=== PATIENT | female | born 1985 | race Caucasian/White ===

== ENCOUNTER 2016-09-27 11:47 | Observation (INO) | payer OTHER ==
[2016-09-27] MEDS ORDERED: ASPIRIN 81 MG CHEW PO STA (12:23)
[2016-09-27] MEDS ORDERED: NITROGLYCERIN OINT 1 INCH/GM PACKET TOPICAL STA (12:23)
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
[2016-09-27 12:44] LABS: Basophils % (A) 0 %; CH 31.8; CHCM 33.3; Eosinophils # (A) 0.1 k/uL (0-0.7); Eosinophils % (A) 2 %; HCT 41.3 % (34.0-46.0); HGB 13.5 gm/dL (11.4-16.0); Luc # (Auto) 0.17; Luc % (Auto) 3; Lymphocytes # (A) 2.2 k/uL (1.0-4.8); Lymphocytes % (A) 39 %; MCH 31.4 pg (25.0-35.0); MCHC 32.7 g/dL (31.0-37.0); MCV 96.1 fL (80.0-100.0); Mean Platelet Volume 6.5; Monocytes # (A) 0.4 k/uL (0-1.0); Monocytes % (A) 7 %; Neutrophils # (A) 2.7 k/uL (1.3-7.7); Neutrophils % (A) 48 %; RDW 13.1 % (11.5-15.5); WBC 5.5 k/uL (3.8-10.6); WBC (Perox) 5.71
[2016-09-27 12:50] LABS: INR 1.2 (<1.1); Prothrombin Time 11.8 sec (9.0-12.0)
[2016-09-27 12:51] LABS: ALT 35 U/L (9-52); AST 17 U/L (14-36); Alkaline Phosphatase 73 U/L (38-126); Anion Gap 11 mmol/L; Blood Urea Nitrogen 20 mg/dL (7-17); Calcium 9.1 mg/dL (8.4-10.2); Carbon Dioxide 24 mmol/L (22-30); Chloride 107 mmol/L (98-107); Glucose 85 mg/dL (74-99); Magnesium 1.9 mg/dL (1.6-2.3); Non-African American GFR(MDRD) >60 (>60 ml/min/1.73 sqM); Potassium 4.8 mmol/L (3.5-5.1); Sodium 142 mmol/L (137-145); Total Bilirubin 0.4 mg/dL (0.2-1.3); Total Protein 6.9 g/dL (6.3-8.2)
--- NOTE | 2016-09-27 12:59 | XR ---
EXAMINATION TYPE: XR chest 2V DATE OF EXAM: 09/27/2016 12:56 PM COMPARISON: Prior chest x-ray 18 September 2016 HISTORY: Chest pain TECHNIQUE: Frontal and lateral views of the chest are obtained. FINDINGS: There is no focal air space opacity, pleural effusion, or pneumothorax seen. The cardiac silhouette size is within normal limits. There is a spinal curvature, patient is rotated. The osseo us structures are intact. IMPRESSION: No acute cardiopulmonary process.
[2016-09-27 13:06] LABS: Creatine Kinase 73 U/L (30-135)
[2016-09-27 13:19] LABS: Troponin I <0.012 ng/mL (0.000-0.034)
[2016-09-27] MEDS ORDERED: NITROGLYCERIN SL TABS 0.4 MG TAB SUBLINGUAL PRN (14:56)
[2016-09-27] MEDS ORDERED: CYCLOBENZAPRINE 10 MG TAB PO PRN (17:02)
[2016-09-27] MEDS ORDERED: ACETAMINOPHEN TAB 325 MG TAB PO PRN (17:04)
[2016-09-27 17:25] VITALS: RESP 16
[2016-09-27] MEDS: HEPARIN SODIUM,PORCINE 5,000 UNIT/ML 1 ML VIAL SQ SCH ×2 (17:25→21:14)
[2016-09-27] MEDS: NITROGLYCERIN OINT 1 INCH/GM PACKET TOPICAL SCH ×2 (18:52→23:50)
[2016-09-27 19:01] LABS: Creatine Kinase 66 U/L (30-135)
[2016-09-27 19:13] LABS: Creatine Kinase MB 0.8 ng/mL (0.0-2.4); Troponin I <0.012 ng/mL (0.000-0.034)
[2016-09-27] MEDS: CITALOPRAM HYDROBROMIDE 10 MG TAB PO SCH (21:14)
[2016-09-27] MEDS: ARIPiprazole 10 MG TAB PO SCH (21:14)
[2016-09-28] MEDS: HEPARIN SODIUM,PORCINE 5,000 UNIT/ML 1 ML VIAL SQ SCH ×2 (00:12→09:11)
[2016-09-28 00:42] LABS: Creatine Kinase 65 U/L (30-135)
[2016-09-28 00:43] LABS: Cholesterol 170 mg/dL (<200); HDL Cholesterol 42 mg/dL (40-60); Triglycerides 43 mg/dL (<150)
[2016-09-28 00:53] LABS: Creatine Kinase MB 0.6 ng/mL (0.0-2.4); Troponin I <0.012 ng/mL (0.000-0.034)
[2016-09-28] MEDS: NITROGLYCERIN OINT 1 INCH/GM PACKET TOPICAL SCH ×2 (06:38→14:05)
[2016-09-28] MEDS ORDERED: ASPIRIN 325 MG TAB PO SCH (09:00)
[2016-09-28] MEDS: ARIPiprazole 10 MG TAB PO SCH (09:11)
[2016-09-28] MEDS: CITALOPRAM HYDROBROMIDE 10 MG TAB PO SCH (09:11)
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
[2016-09-28 12:02] VITALS: BP 116/71; PULSE 99; TEMP 98.9
--- NOTE | 2016-09-28 12:14 | ECHOS ---
DATE OF SERVICE: 09/28/2016 AGE: 31Y SEX: F HT: 65 WT: 143 lbs. Protocol Silas: X Others: Stress Echo Stage: II Dur. of Exercise: 5 minutes *Heart Rate Blood Pressure *Rest: 120 Rest: 101/67 * *Max. Achieved: 175 Maximum BP: 114/64 85% PMHR: 161 100% PMHR: 189 *METS: 6.6 INDICATIONS: MEDICATIONS: Celexa, Abilify, Flexeril. CLINICAL INFORMATION: Patient is admitted to the hospital with chest pains and patient is on Flexeril, Celexa, and Abilify. No history of smoking. Patient's resting ECG shows sinus tachycardia, rate of 120 beats per minute. AK interval of 0.16, QRS 0.08, normal ST-T waves, poor R wave progression in anteroseptal leads. Utilizing a standard Silas protocol, a symptom limited treadmill test was performed. Patient exercised for total of 5 minutes, attained a peak heart rate of 175 beats per minute, which is approximately 92% predicted maximal heart rate without any chest or pressure or ST segment deviations indicative of ischemia in any of the monitoring 12 leads. Baseline images show normal thickening except for mild hypokinesis of the inferoapical, apical septal and apical anterior wall and apex on the baseline images, but LV function overall LV function appears to be on the low normal range. Postexercise images show improved contractility and thickening in all segments, including the apex, possibly normal variation. I do not see any definite hypokinetic or dyskinetic segments. Clinical correlation is suggested. 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 Normal stress echocardiogram with overall left ventricular function is mildly impaired. See comments above. 2. Patient did not report any symptoms throughout the study.
[2016-09-28] MEDS ORDERED: CARVEDILOL 3.125 MG TAB PO SCH (17:30)
[2016-09-29] MEDS ORDERED: SPIRONOLACTONE 25 MG TAB PO SCH (09:00)
--- NOTE | 2016-09-29 15:11 | HP ---
DATE OF ADMISSION: 09/28/2016 CHIEF COMPLAINT: Chest pain. HISTORY OF PRESENT ILLNESS: This is a 31-year-old female with past medical history of anxiety, depression, and bipolar disorder who presented to the hospital with chest pain. Patient described it as located to the mediastinum and to the right. No radiation reported. Said that it was mild to moderate. She described it as heaviness on the chest. Patient said that she had a lot of episodes of pain in the past and that lasted only for a few seconds, but this time it lasted for almost 1 minute and patient came to the emergency room. Patient said the pain resolved in the emergency without any medications. Denied any exacerbation factors or any reliving factors. patient currently denying chest pain, shortness of breath, nausea, vomiting, abdominal pain, dizziness, lightheadedness or blurry vision. REVIEW OF SYSTEMS: All reviewed and negative except as above. ALLERGIES: No known drug allergies. HOME MEDICATION: Patient says that she has been off medication except for Zantac which she takes twice daily for her GERD. PAST MEDICAL HISTORY: 1. GERD. 2. Bipolar disorder. 3. Anxiety. 4. Depression. SOCIAL HISTORY: No tobacco, alcohol or drug abuse. FAMILY HISTORY: Significant for hypertension. No sudden cardiac or early heart attack in her family. PHYSICAL EXAMINATION: VITAL SIGNS: Reviewed and stable. GENERAL: In her stated age ( ). ( ) PERRLA. NECK: Supple. No thyromegaly. LUNGS: Clear to auscultation bilaterally. HEART: Normal S1, S2. ABDOMEN: Soft, nontender. bowel sounds positive in all four quadrants. LOWER EXTREMITY: No edema. ( ) IMAGING AND LABS: CBC and chem. 7 within normal limits. Troponin has been negative. Stress test was done and negative. ASSESSMENT AND PLAN: 1. Chest pain, atypical, likely etiology of gastroesophageal reflux disease, exacerbated with anxiety. Patient asked to continue with Zantac and stop taking Protonix and to follow up with her primary care physician as outpatient. Patient reassured regarding the stress test results and asked to follow up with her primary care physician closely. 2. Gastroesophageal reflux disease. Management as above. 3. Anxiety and depression. Management as above. 4. Bipolar disorder. Patient will follow-up with her primary care physician as outpatient. 5. Discharge planning, this afternoon. Plan discussed with the patient who agreed to the above and will be discharged today.
== END 2016-09-28 14:00 | disposition home or self-care (01) ==
LOC: EC 11:47 → 3OBS 14:56
PROVIDERS: ADMIT Internal Medicine; ATTEND Internal Medicine
DX: R07.9 Chest pain, unspecified (principal); Z87.442 Personal history of urinary calculi; F17.200 Nicotine dependence, unspecified, uncomplicated; F41.9 Anxiety disorder, unspecified; F31.9 Bipolar disorder, unspecified; F43.10 Post-traumatic stress disorder, unspecified; F90.9 Attention-deficit hyperactivity disorder, unspecified type; J45.909 Unspecified asthma, uncomplicated; Z62.810 Personal history of physical and sexual abuse in childhood; Z80.1 Family history of malignant neoplasm of trachea, bronchus and lung; Z82.0 Family history of epilepsy and other diseases of the nervous system; Z82.49 Family history of ischemic heart disease and other diseases of the circulatory system; Z79.899 Other long term (current) drug therapy; Z88.1 Allergy status to other antibiotic agents; Z88.3 Allergy status to other anti-infective agents; Z88.8 Allergy status to other drugs, medicaments and biological substances
CPT/HCPCS: 99285; 36415; 93005; 93017; 93350; 80061; 80053; 82550; 82553; 83735; 84484; 85025; 85610; 85730; 71020; G0378 ×2; J1644 ×2; 96372

== ENCOUNTER 2016-10-05 21:03 | Observation (INO) | payer OTHER ==
[2016-10-05] MEDS ORDERED: NITROGLYCERIN SL TABS 0.4 MG TAB SUBLINGUAL STA ×2 (21:29)
[2016-10-05] MEDS ORDERED: ASPIRIN 81 MG CHEW PO STA (21:29)
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
[2016-10-05] MEDS: NITROGLYCERIN SL TABS 0.4 MG TAB SUBLINGUAL STA ×2 (21:50→21:51)
[2016-10-05 21:51] LABS: Basophils # (A) 0.1 k/uL (0-0.2); Basophils % (A) 1 %; CH 31.8; CHCM 33.5; Eosinophils # (A) 0.2 k/uL (0-0.7); Eosinophils % (A) 2 %; HDW 2.37; HGB 13.6 gm/dL (11.4-16.0); Luc % (Auto) 3; Lymphocytes % (A) 38 %; MCH 30.9 pg (25.0-35.0); MCHC 32.3 g/dL (31.0-37.0); MCV 95.4 fL (80.0-100.0); Mean Platelet Volume 7.2; Monocytes # (A) 0.6 k/uL (0-1.0); Monocytes % (A) 7 %; Neutrophils # (A) 3.9 k/uL (1.3-7.7); Neutrophils % (A) 49 %; RBC 4.41 m/uL (3.80-5.40); RDW 13.2 % (11.5-15.5); WBC 7.9 k/uL (3.8-10.6); WBC (Perox) 7.94
[2016-10-05 21:59] LABS: INR 1.1 (<1.1); Partial Thromboplastin Time 24.4 sec (22.0-30.0); Prothrombin Time 11.3 sec (9.0-12.0)
--- NOTE | 2016-10-05 22:09 | XR ---
EXAMINATION TYPE: XR chest 2V DATE OF EXAM: 10/05/2016 10:04 PM COMPARISON: 09/27/2016 HISTORY: Chest pain TECHNIQUE: Frontal and lateral views of the chest are obtained. FINDINGS: Heart and mediastinum are normal. Lungs are clear. Diaphragm is normal. There are chest le ads. Costophrenic angles are clear. Bony thorax is intact. IMPRESSION: Normal chest. No change.
[2016-10-05 22:17] LABS: Creatine Kinase 79 U/L (30-135)
[2016-10-05 22:19] LABS: ALT 49 U/L (9-52); AST 25 U/L (14-36); Alkaline Phosphatase 65 U/L (38-126); Anion Gap 11 mmol/L; Blood Urea Nitrogen 17 mg/dL (7-17); Calcium 9.4 mg/dL (8.4-10.2); Carbon Dioxide 25 mmol/L (22-30); Chloride 107 mmol/L (98-107); Glucose 92 mg/dL (74-99); Magnesium 2.2 mg/dL (1.6-2.3); Non-African American GFR(MDRD) >60 (>60 ml/min/1.73 sqM); Potassium 3.9 mmol/L (3.5-5.1); Sodium 143 mmol/L (137-145); Total Bilirubin 0.3 mg/dL (0.2-1.3); Total Protein 7.5 g/dL (6.3-8.2)
[2016-10-05 22:26] LABS: Appearance,Urine Clear (Clear); Bilirubin,Urine Negative (Negative); Glucose,Urine (UA) Negative (Negative); Ketones,Urine Negative (Negative); Leukocyte Esterase,Urine Negative (Negative); Nitrite,Urine Negative (Negative); Protein,Urine Negative (Negative); Specific Gravity,Urine 1.018 (1.001-1.035); UA Billing (MACRO vs. MICRO) CHEM; Urobilinogen,Urine <2.0 mg/dL (<2.0)
[2016-10-05 22:30] LABS: Creatine Kinase MB 0.4 ng/mL (0.0-2.4); Troponin I <0.012 ng/mL (0.000-0.034)
[2016-10-05] MEDS ORDERED: HEPARIN SODIUM,PORCINE 5,000 UNIT/ML 1 ML VIAL IV PRN (22:59)
[2016-10-05] MEDS ORDERED: NITROGLYCERIN SL TABS 0.4 MG TAB SUBLINGUAL PRN (22:59)
[2016-10-05] MEDS ORDERED: HEPARIN SODIUM,PORCINE 5,000 UNIT/ML 1 ML VIAL IV ONE (22:59)
[2016-10-05] MEDS ORDERED: HEPARIN SODIUM,PORCINE/D5W PMX 25,000 UNIT in DEXTROSE/WATER 1 500ML.BAG IV SCH (23:00)
[2016-10-05 23:48] VITALS: BMI 21.9
[2016-10-06] MEDS ORDERED: CITALOPRAM HYDROBROMIDE 20 MG TAB PO SCH (00:30)
[2016-10-06] MEDS: NITROGLYCERIN OINT 1 INCH/GM PACKET TOPICAL SCH ×5 (02:33→23:02)
[2016-10-06] MEDS: ARIPiprazole 10 MG TAB PO SCH ×3 (02:34→20:05)
[2016-10-06] MEDS: CITALOPRAM HYDROBROMIDE 10 MG TAB PO SCH ×3 (02:34→20:05)
[2016-10-06 03:46] LABS: Mean Platelet Volume 6.9
[2016-10-06 04:23] LABS: Cholesterol 152 mg/dL (<200); HDL Cholesterol 41 mg/dL (40-60); Triglycerides 35 mg/dL (<150)
[2016-10-06 04:35] LABS: Creatine Kinase 59 U/L (30-135)
[2016-10-06 04:48] LABS: Creatine Kinase MB 0.3 ng/mL (0.0-2.4); Troponin I <0.012 ng/mL (0.000-0.034)
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
[2016-10-06] MEDS: ACETAMINOPHEN TAB 325 MG TAB PO PRN ×2 (09:30→20:05)
[2016-10-06] MEDS: ASPIRIN 325 MG TAB PO SCH (09:30)
[2016-10-06 09:36] LABS: Creatine Kinase 59 U/L (30-135)
[2016-10-06 09:49] LABS: Creatine Kinase MB 0.3 ng/mL (0.0-2.4); Troponin I <0.012 ng/mL (0.000-0.034)
[2016-10-06] MEDS ORDERED: MAG HYDROX/AL HYDROX/SIMETH 30 ML CUP PO PRN (20:37)
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
[2016-10-06] MEDS ORDERED: SODIUM CHLORIDE 0.9% 1,000 ML IV SCH (22:00)
[2016-10-06] MEDS: METOPROLOL TARTRATE 12.5 MG TAB PO SCH (23:01)
[2016-10-07] MEDS: NITROGLYCERIN OINT 1 INCH/GM PACKET TOPICAL SCH ×2 (04:31→13:43)
[2016-10-07 04:42] VITALS: TEMP 98.5
[2016-10-07 08:14] VITALS: RESP 16
--- NOTE | 2016-10-07 08:33 | P.PN ---
Subjective Principal diagnosis: Chest pain This is a pleasant 31-year-old female patient with no significant cardiac history who presented to the hospital complaining of chest discomfort. She was at home yesterday when she developed chest discomfort, as sharp kind of discomfort, with some radiation to the right arm, without associated symptoms. The cardiac workup came in to be unremarkable. Enzymes came in to be unremarkable. The EKG showed sinus rhythm with poor R-wave progression. The patient just was admitted to the hospital a few weeks ago and underwent an echocardiogram and stress echocardiogram and both came in to be unremarkable. She was seen and evaluated by Dr. Dr. Le in the office few days ago and he recommended obtaining an event monitor which the patient is willing at this point. The patient was started yesterday on metoprolol tartrate by Dr. Kimble. On follow-up with her today, she is feeling better, the chest discomfort has improved, and the sinus tachycardia has improved as well. From the cardiovascular standpoint of view, the patient can be discharged home. Objective - Vital Signs Vital signs: Vital Signs Temp 98.5 F 10/07/16 08:00 Pulse 91 10/07/16 08:00 Resp 16 10/07/16 08:00 BP 81/55 10/07/16 08:00 Pulse Ox 98 10/07/16 08:00 Intake & Output 10/06/16 10/07/16 10/07/16 18:59 06:59 18:59 Intake Total 500 Balance 500 Weight 63.5 kg Intake: Oral 500 Other: Voiding Method Toilet Toilet # Voids 3 2 - Constitutional General appearance: Present: no acute distress - Respiratory Respiratory: bilateral: CTA - Cardiovascular Rhythm: regular Heart sounds: normal: S1, S2 - Labs CBC & Chem 7: 10/06/16 03:26 10/05/16 21:22 Assessment and Plan Plan: Assessment #1 atypical chest pain #2 sinus tachycardia Plan #1 the patient can be discharged home #2 she has a negative cardiac workup
[2016-10-07] MEDS: METOPROLOL TARTRATE 12.5 MG TAB PO SCH (09:42)
[2016-10-07] MEDS: CITALOPRAM HYDROBROMIDE 10 MG TAB PO SCH (09:42)
[2016-10-07] MEDS: ASPIRIN 325 MG TAB PO SCH (09:42)
[2016-10-07] MEDS: ARIPiprazole 10 MG TAB PO SCH (09:43)
[2016-10-07 11:58] VITALS: BP 95/64; PULSE 90
[2016-10-12 01:45] LABS: Metanephrine, Free 32 pg/mL (< OR = 57); Total, Free (MN + NMN) 32 pg/mL (< OR = 205)
--- NOTE | 2016-10-29 11:44 | P.DS ---
Providers Date of admission: 10/05/16 22:59 Expected date of discharge: 10/07/16 Attending physician: Leonor Kimble Primary care physician: [facility] Course: This is a pleasant 31 year old lady patient of Dr Negorn, She has history of anxiety, depression, bipolar disorder and palpitations, she follows with Dr Le cardiology and Dr Nevarez psychiatry, she was last seen here with an admission related to chest pain requiring a stress echo whoch failed to reveal any stress induced inchemia, she has mild inferiorapical apical septal, apical anterior hypokinesia with normal ef, She was discharged to home with an event monitor, she has increasing difficulties with stress, patient cannot sleep , she cannot shut down her brain, her mother seems to be a big part of her stress. tehere was no titration of her medicaiton when seen by her psychiatrist. She is nonsuicidal non homicidal with compliance to medications. She was home this time and had racing heart causing some chest discomfort, no radiation of pain, pain is sharp without any exertion, at that time her heart rate was 137 based on her event monitor, she pressed the event button with her symptoms she was advised to come in the ER.. I have called the heart monitor company to find out the underlying rhythm, she was in sinus tachycardia without any malignant rhytm, hr 137. patient denies any neurologic symptoms, she is a little bit hypotensive while in the medical floor, she has intermittent burst of tachycardia 120-130. low dose metoprolol was started in consideration of her symptomatology, citalopram was increased. no anxiolytics were prescribed at this time, metoprolol is added at 12.5 bid, conusltations with cardiology Patient's chest discomfort has improved. Sinus tachycardia has improved as well. She has been cleared for discharge by cardiology. Patient will be discharged home today in stable condition. Discharge diagnoses: 1. chest pain related to episodes of sinus tachycardia at rest with increasing uncontrolled emotional stress. 2. bipolar disorder with insomnia, anxiety. 3.GERD 4. Hypotension Impression and plan of care have been directed as dictated by the signing physician. Nel Davison nurse practitioner acting as scribe for signing physician. Patient Condition at Discharge: Good Plan - Discharge Summary New Discharge Prescriptions: Aspirin EC [Ecotrin Low Dose] 81 mg PO DAILY #30 tablet. Melatonin 5 mg PO HS #30 tablet Metoprolol Tartrate [Lopressor] 12.5 mg PO BID #60 tab Discharge Medication List ARIPiprazole [Abilify] 10 mg PO BID 09/27/16 [History] ARIPiprazole [Abilify] 10 mg PO BID tab 10/06/16 [Rx] Citalopram Hydrobromide [CeleXA] 10 mg PO TID #0 10/06/16 [Rx] Melatonin 5 mg PO HS #30 tablet 10/06/16 [Rx] Aspirin EC [Ecotrin Low Dose] 81 mg PO DAILY #30 tablet. 10/07/16 [Rx] Metoprolol Tartrate [Lopressor] 12.5 mg PO BID #60 tab 10/07/16 [Rx] Follow up Appointment(s)/Referral(s): Cleve Negron MD [Primary Care Provider] - 1-2 days Jose Raul Le MD [STAFF PHYSICIAN] - 1 Week Patient Instructions/Handouts: Heart Healthy Diet (GEN), Seasoning Without Salt (GEN), Low Sodium Diet (GEN) Activity/Diet/Wound Care/Special Instructions: low fat/low salt diet activity as tolerated Discharge Disposition: HOME SELF-CARE
== END 2016-10-07 15:11 | disposition home or self-care (01) ==
LOC: EC 21:03 → 3OBS 22:59
PROVIDERS: ADMIT Family Medicine; ATTEND Family Medicine
DX: R07.89 Other chest pain (principal); R00.0 Tachycardia, unspecified; F31.9 Bipolar disorder, unspecified; G47.00 Insomnia, unspecified; F41.9 Anxiety disorder, unspecified; K21.9 Gastro-esophageal reflux disease without esophagitis; I95.9 Hypotension, unspecified; J45.909 Unspecified asthma, uncomplicated; F60.9 Personality disorder, unspecified; G40.909 Epilepsy, unspecified, not intractable, without status epilepticus; F90.9 Attention-deficit hyperactivity disorder, unspecified type; F43.10 Post-traumatic stress disorder, unspecified; F12.90 Cannabis use, unspecified, uncomplicated; M54.9 Dorsalgia, unspecified; F17.200 Nicotine dependence, unspecified, uncomplicated; Z62.810 Personal history of physical and sexual abuse in childhood; Z79.899 Other long term (current) drug therapy; Z88.1 Allergy status to other antibiotic agents; Z88.8 Allergy status to other drugs, medicaments and biological substances; Z80.1 Family history of malignant neoplasm of trachea, bronchus and lung
CPT/HCPCS: 36415; 93005; 83835; 83880; 80061; 80053; 84443; 82533; 82550 ×2; 82553 ×2; 83735; 84484 ×2; 85025; 85049; 85610; 85730 ×2; 81003; 81025; 84480; 80306; 71020; 99285; 96365; 96376; G0378 ×3; J1644 ×2; 96361; 96366

== ENCOUNTER 2016-11-09 15:04 | Emergency (ER) | payer OTHER ==
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
[2016-11-09] MEDS ORDERED: SODIUM CHLORIDE 0.9% 1,000 ML IV ONE (16:29)
[2016-11-09] MEDS ORDERED: SODIUM CHLORIDE 0.9% 1,000 ML IV SCH ×2 (16:30→17:30)
[2016-11-09] MEDS ORDERED: ACETAMINOPHEN TAB 325 MG TAB PO PRN (17:20)
[2016-11-09] MEDS ORDERED: ONDANSETRON 4 MG/2 ML VIAL IVP PRN (17:20)
[2016-11-09] MEDS ORDERED: NALOXONE 0.4 MG/ML 1 ML VIAL IV PRN (17:20)
[2016-11-09] MEDS ORDERED: KETOROLAC 30 MG/ML 1 ML VIAL IVP PRN (17:20)
[2016-11-09] MEDS ORDERED: IBUPROFEN 400 MG TAB PO PRN (17:20)
[2016-11-09 17:22] LABS: Basophils # (A) 0.1 k/uL (0-0.2); Basophils % (A) 1 %; CH 32.6; CHCM 33.3; Eosinophils # (A) 0.2 k/uL (0-0.7); Eosinophils % (A) 2 %; HCT 43.7 % (34.0-46.0); HDW 2.36; HGB 14.6 gm/dL (11.4-16.0); Luc # (Auto) 0.22; Luc % (Auto) 3; Lymphocytes # (A) 2.4 k/uL (1.0-4.8); Lymphocytes % (A) 30 %; MCH 32.7 pg (25.0-35.0); MCHC 33.3 g/dL (31.0-37.0); MCV 98.2 fL (80.0-100.0); Mean Platelet Volume 7.2; Monocytes # (A) 0.4 k/uL (0-1.0); Monocytes % (A) 5 %; Neutrophils # (A) 4.7 k/uL (1.3-7.7); Neutrophils % (A) 59 %; RBC 4.45 m/uL (3.80-5.40); RDW 13.5 % (11.5-15.5); WBC 7.9 k/uL (3.8-10.6); WBC (Perox) 7.92
[2016-11-09 17:29] LABS: Appearance,Urine Cloudy (Clear); Bacteria,Urine Many /hpf; Bilirubin,Urine Negative (Negative); Glucose,Urine (UA) Negative (Negative); Ketones,Urine Negative (Negative); Leukocyte Esterase,Urine Large (Negative); Mucus,Urine Rare /hpf; Nitrite,Urine Negative (Negative); Particle Count 16021; Protein,Urine Negative (Negative); RBC,Urine 1 /hpf (0-5); Specific Gravity,Urine 1.011 (1.001-1.035); Squamous Epithelial Cell,Urine 22 /hpf (0-4); UA Billing (MACRO vs. MICRO) MICRO; Urobilinogen,Urine <2.0 mg/dL (<2.0); WBC,Urine 2 /hpf (0-5)
[2016-11-09 17:33] LABS: ALT 57 U/L (9-52); AST 29 U/L (14-36); Alkaline Phosphatase 51 U/L (38-126); Anion Gap 9 mmol/L; Blood Urea Nitrogen 12 mg/dL (7-17); Calcium 9.7 mg/dL (8.4-10.2); Carbon Dioxide 26 mmol/L (22-30); Chloride 106 mmol/L (98-107); Glucose 88 mg/dL (74-99); Non-African American GFR(MDRD) >60 (>60 ml/min/1.73 sqM); Sodium 141 mmol/L (137-145); Total Bilirubin 0.4 mg/dL (0.2-1.3); Total Protein 7.9 g/dL (6.3-8.2)
[2016-11-09 18:23] LABS: Erythrocyte Sedimentation Rate 11 mm/hr (0-20)
[2016-11-09] MEDS ORDERED: methylPREDNISolone SOD SUCCI 125 MG/2 ML VIAL IV STA (18:26)
[2016-11-09 18:52] VITALS: BP 107/70; PULSE 88; RESP 18; TEMP 98.4
[2016-11-10] MEDS ORDERED: ENOXAPARIN 40 MG/0.4 ML SYRINGE SQ SCH (09:00)
== END 2016-11-09 18:50 | disposition home or self-care (01) ==
LOC: EC 15:04
DX: S90.425A Blister (nonthermal), left lesser toe(s), initial encounter (principal); F31.9 Bipolar disorder, unspecified; T37.0X5A Adverse effect of sulfonamides, initial encounter; Z88.1 Allergy status to other antibiotic agents; Z88.2 Allergy status to sulfonamides; Z88.5 Allergy status to narcotic agent; Z88.8 Allergy status to other drugs, medicaments and biological substances; Z91.012 Allergy to eggs; Z87.891 Personal history of nicotine dependence; Z79.899 Other long term (current) drug therapy
CPT/HCPCS: 36415; 80053; 85652; 85025; 81001; 87040; 87070; 87086; 87205; 99283; 96374; 96361; J2930

== ENCOUNTER 2016-12-02 19:25 | Emergency (ER) | payer OTHER ==
[2016-12-02 19:29] VITALS: BP 105/67; PULSE 105; RESP 20; TEMP 98.9
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
--- NOTE | 2016-12-02 20:07 | XR ---
EXAMINATION TYPE: XR chest 2V DATE OF EXAM: 12/02/2016 7:56 PM COMPARISON: Prior chest x-ray October 05, 2016 HISTORY: Cough and fever for 4 days. TECHNIQUE: Frontal and lateral views of the chest are obtained. FINDINGS: There is no focal air space opacity, pleural effusion, or pneumothorax seen. The cardiac silhouette size is within normal limits. The osseous structures are intact. IMPRESSION: No suspicious acute infiltrate is present.
== END 2016-12-02 20:25 | disposition home or self-care (01) ==
LOC: EC 19:25
DX: J10.1 Influenza due to other identified influenza virus with other respiratory manifestations (principal); F31.9 Bipolar disorder, unspecified; F41.9 Anxiety disorder, unspecified; Z87.891 Personal history of nicotine dependence; J45.909 Unspecified asthma, uncomplicated; Z79.899 Other long term (current) drug therapy; Z88.1 Allergy status to other antibiotic agents; Z88.2 Allergy status to sulfonamides; Z91.012 Allergy to eggs; Z88.6 Allergy status to analgesic agent; Z88.8 Allergy status to other drugs, medicaments and biological substances; Z87.01 Personal history of pneumonia (recurrent)
CPT/HCPCS: 71020; 87502; 99283

== ENCOUNTER 2017-02-24 14:34 | Inpatient (IN) | payer MEDICAID, OTHER ==
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
[2017-02-24] MEDS ORDERED: LORazepam 1 MG TAB PO STA (16:28)
[2017-02-24] MEDS ORDERED: ONDANSETRON ODT 4 MG TAB PO STA (16:28)
[2017-02-24] MEDS ORDERED: cloNIDine 0.3 MG/24HR PATCH 1 PATCH PATCH TRANSDERM SCH (16:30)
[2017-02-24] MEDS ORDERED: MAGNESIUM HYDROXIDE 2,400 MG/10 ML CUP PO PRN (21:28)
[2017-02-24] MEDS ORDERED: MAG HYDROX/AL HYDROX/SIMETH 30 ML CUP PO PRN (21:28)
[2017-02-24] MEDS ORDERED: LORATADINE 10 MG TAB PO PRN (21:37)
[2017-02-24] MEDS: ARIPiprazole 10 MG TAB PO SCH (22:05)
[2017-02-24 22:06] VITALS: BMI 27.1
[2017-02-24] MEDS ORDERED: cloNIDine HCL 0.1 MG TAB PO PRN (22:15)
[2017-02-25] MEDS ORDERED: LOPERAMIDE 2 MG CAP PO PRN (02:55)
[2017-02-25 08:08] LABS: Basophils % (A) 0 %; CH 32.6; CHCM 32.8; Eosinophils # (A) 0.2 k/uL (0-0.7); Eosinophils % (A) 2 %; HCT 43.1 % (34.0-46.0); HDW 2.26; HGB 14.3 gm/dL (11.4-16.0); Luc # (Auto) 0.18; Luc % (Auto) 2; Lymphocytes # (A) 2.1 k/uL (1.0-4.8); Lymphocytes % (A) 20 %; MCH 33.1 pg (25.0-35.0); MCHC 33.2 g/dL (31.0-37.0); MCV 99.8 fL (80.0-100.0); Monocytes # (A) 0.7 k/uL (0-1.0); Monocytes % (A) 6 %; Neutrophils # (A) 7.3 k/uL (1.3-7.7); Neutrophils % (A) 70 %; RBC 4.32 m/uL (3.80-5.40); WBC 10.5 k/uL (3.8-10.6); WBC (Perox) 10.45
[2017-02-25] MEDS: CHOLECALCIFEROL 1,000 UNIT TAB PO SCH (08:48)
[2017-02-25] MEDS ORDERED: VENLAFAXINE HCL ER 37.5 MG CAP PO SCH (09:00)
[2017-02-25 09:03] LABS: ALT 28 U/L (9-52); AST 18 U/L (14-36); Alkaline Phosphatase 53 U/L (38-126); Anion Gap 10 mmol/L; Blood Urea Nitrogen 17 mg/dL (7-17); Calcium 9.6 mg/dL (8.4-10.2); Carbon Dioxide 24 mmol/L (22-30); Chloride 106 mmol/L (98-107); Glucose 85 mg/dL (74-99); Non-African American GFR(MDRD) >60 (>60 ml/min/1.73 sqM); Potassium 4.2 mmol/L (3.5-5.1); Sodium 140 mmol/L (137-145); Total Bilirubin 0.8 mg/dL (0.2-1.3); Total Protein 7.5 g/dL (6.3-8.2)
[2017-02-25] MEDS: METOPROLOL TARTRATE 25 MG TAB PO SCH ×2 (09:31→20:52)
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
[2017-02-25] MEDS: IBUPROFEN 800 MG TAB PO PRN (12:30)
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
[2017-02-25] MEDS: ARIPiprazole 10 MG TAB PO SCH (20:52)
[2017-02-26] MEDS: CHOLECALCIFEROL 1,000 UNIT TAB PO SCH (08:45)
[2017-02-26] MEDS: SERTRALINE 50 MG TAB PO SCH (08:47)
[2017-02-26] MEDS: METOPROLOL TARTRATE 25 MG TAB PO SCH ×2 (08:47→22:04)
[2017-02-26] MEDS ORDERED: LOPERAMIDE 2 MG CAP PO PRN (08:58)
--- NOTE | 2017-02-26 09:06 | P.PN ---
Progress Note - Text Interval history: The patient is found in the hallway she follows me to an interview room. She reports her mood is better today. She feels that she slept well. We discussed the medication change to Zoloft she has no questions or concerns regarding that medication. She states that she has secured a bed at [facility] on March 06. She states her parents would like her to stay in the hospital until then she states she would like to be discharged tomorrow. She states that she has been participating in groups and finds was beneficial. She may have a support meeting scheduled tomorrow involving her parents. She anticipates that may go well but states that they often do not get along. Mental status exam: The patient is seated calmly in her chair she presents with adequate hygiene grooming eye contact is appropriate speech is fluent spontaneous. She reports her mood is better affect is constricted. She feels safe in the hospital she reports no acute suicidal or homicidal ideation intent or plan. Between yesterday and today she is reporting a dramatic change in her mood. She is reporting no thoughts to participate in self-injurious [place] such as cutting. She endorses no homicidal ideation. No report of auditory or visual hallucinations no specific delusions she does not appear to be experiencing symptoms of psychosis. Thought process is linear she demonstrates no tangential thinking loose associations or flight of ideas. She can be circumstantial at times. Insight and judgment still limited. She demonstrates no abnormal involuntary movements. She demonstrates no verbal or physical aggressiveness. Plan: The patient will continue on her current medications we will monitor her for safety and encourage her participation in the milieu. We will await the results of the support meeting tomorrow. Vital signs reviewed she is demonstrating tachycardia this morning. Yesterday she had 2 heart rate measurements within normal limits. We will continue the metoprolol.
[2017-02-26] MEDS ORDERED: ONDANSETRON ODT 4 MG TAB PO STA (11:13)
[2017-02-26] MEDS: IBUPROFEN 800 MG TAB PO PRN (18:41)
[2017-02-26] MEDS: ARIPiprazole 10 MG TAB PO SCH (22:03)
[2017-02-27] MEDS: CHOLECALCIFEROL 1,000 UNIT TAB PO SCH (09:17)
[2017-02-27] MEDS: METOPROLOL TARTRATE 25 MG TAB PO SCH ×2 (09:17→21:19)
[2017-02-27] MEDS: SERTRALINE 50 MG TAB PO SCH (09:17)
[2017-02-27] MEDS ORDERED: ONDANSETRON 4 MG TAB PO PRN (11:24)
[2017-02-27] MEDS ORDERED: hydrOXYzine PAMOATE 25 MG CAP PO PRN (11:25)
--- NOTE | 2017-02-27 11:44 | P.PN ---
Progress Note - Text INTERVERAL HISTORY: Cross-cover DR Valentin. I reviewed medical records ,discussed case in treatment team and saw patient; patient had her family meeting this morning that was productive and mother did set firm limits on patient behavior regarding her addiction,please refer to SW note,patient stated that she does not feel safe to be discharged today "I am still going through withdrawals symptoms ,I have bad nausea and anxiety ,can you give me Ativan",I discussed with her cross addiction and she verbalized understanding.She denies any suicidal ideation ,no psychotic features ,rates her depression 3/10 ,anxiety 6 or 7/10 MENTAL STATUS EXAM The patient presents with adequate hygiene ,fair grooming, eye contact is appropriate speech is spontaneous. Stated mood"ANXIOUS" , affect is constricted, she reports no suicidal or homicidal ideation intent or plan, she does not appear to be experiencing symptoms of psychosis. Thought process is linear and goal directed .Insight and judgment are improving PLAN: Continue inpatient psychiatric admission for safety purposes,add PRN Zofran and Vistaril ,continue rest of medications, continue groups participation and encourage relaxation and mindfullness instead of drug seeking behavior
[2017-02-27] MEDS: ARIPiprazole 10 MG TAB PO SCH (21:20)
[2017-02-27] MEDS: IBUPROFEN 800 MG TAB PO PRN (21:20)
[2017-02-27 21:22] VITALS: TEMP 98
[2017-02-28] MEDS: CHOLECALCIFEROL 1,000 UNIT TAB PO SCH (08:52)
[2017-02-28] MEDS: METOPROLOL TARTRATE 25 MG TAB PO SCH (08:53)
[2017-02-28] MEDS: SERTRALINE 50 MG TAB PO SCH (08:53)
[2017-02-28 08:54] VITALS: BP 95/68; PULSE 118; RESP 20
--- NOTE | 2017-02-28 09:37 | P.DS ---
Providers Date of admission: 02/24/17 19:34 Expected date of discharge: 02/28/17 Attending physician: Claus Valentin Consults: 02/24/17 21:28 Consult Physician Routine Consulting Provider: Ailin Barfield Consult Reason/Comments: H & P and medical follow up, evaluate hypotension and scrape to R forearm. Do you want consulting provider notified?: Yes, Notify in am 02/25/17 14:58 Consult Physician Routine Consulting Provider: Perico Romero Consult Reason/Comments: Patient's outpt physician told her to stop 2nd benzo 02/15/17.Titrate Please Do you want consulting provider notified?: Yes Primary care physician: Stated None - Discharge Diagnosis(es) (1) Major depressive disorder, recurrent Current Visit: Yes Status: Acute Priority: High (2) Opiate dependence Current Visit: Yes Status: Acute Priority: High (3) Cocaine use disorder, mild, in sustained remission Current Visit: Yes Status: Acute Priority: Low Hospital Course: Brief summary of admission note: This patient is a 31-year-old single female who was admitted to the mental health unit through the emergency room for suicidal ideation. The patient had reported a worsening of depressive symptoms over the last 2 months. She felt depressed tearful having low energy decreased appetite. She reported feeling hopeless and had thoughts of cutting her throat. She has a long history of having major depressive episodes she is also known to have cluster B personality disorder traits and is currently in the DBT group with [facility]. The patient has been utilizing opiates in the form of heroin and fentanyl. For full detail please refer to the psychiatric evaluation dated 02/25/2017. Summary of hospital course: The patient was admitted to the mental health unit voluntarily. We reviewed her presenting symptoms and medication options. She felt that she was doing poorly with the Effexor and she felt more agitated and aggressive with it. We discontinue that medication and initiated Zoloft to manage depressive and possibly anxiety symptoms. She was continued on her Abilify. In my absence she was started on Vistaril as needed for anxiety. The patient participated in a support meeting involving her parents yesterday. There was found to be productive. She will return home with them with the agreement that she will adhere to several specific rules. She is scheduled to go to [place] for chemical dependency treatment on the of this month. During the hospitalization we spent some time having her examine some of the assumption she makes in certain situations. We discussed a variety of coping skills she can employ when feeling stressed or overwhelmed. The patient feels that she is ready to go home she has processed the family meeting further. She was seen by the internal medicine team. She does have an existing history of sinus tachycardia she was continued on her metoprolol. Mental status exam: The patient is alert she seated calmly she is dressed in her own clothing. Hygiene and grooming are adequate. Speech is fluent and spontaneous nonpressured. She reports her mood is "much better" affect is euthymic she demonstrates no tearfulness. Thought process is linear she demonstrates mild tangential thinking loose associations or flight of ideas. She is reporting no auditory or visual hallucinations she reports no specific delusions there is no evidence of psychosis. She does not appear hypomanic or manic. There is no verbal or physical aggressiveness. No psychomotor agitation or slowing. No abnormal involuntary movements are observed. She remains oriented to person place and date. She reports no hopelessness thinking she reports no suicidal or homicidal ideation intent or plan. She demonstrates future oriented thinking as she describes her planned activities for the next 6 days prior to attending inpatient chemical dependency treatment. Impressions 1. Major depressive disorder recurrent severe without psychosis, opiate use disorder, cocaine use disorder in remission, rule out PTSD 2. Borderline personality disorder traits 3. History of sinus tachycardia Plan: The patient will be discharged from the mental health unit today she will reside with her parents. She will continue on Zoloft 50 mg daily Vistaril 25 mg up to twice daily as needed for anxiety, Abilify 10 mg daily. She is scheduled to be placed at [place] for inpatient chemical dependency treatment on the of this month. She is instructed to abstain from any use of alcohol or illicit drugs. We discussed the use of alcohol or illicit drugs will elevate her safety risk. There is no imminent safety risk at this time and she is appropriate for transition to outpatient care. She is instructed to present to the hospital with any acute safety concerns. She will resume activity and her DBT group with [facility]. Patient Condition at Discharge: Stable Plan - Discharge Summary New Discharge Prescriptions: New hydrOXYzine PAMOATE [Vistaril] 25 mg PO Q8HR PRN #30 cap PRN Reason: Anxiety Sertraline [Zoloft] 50 mg PO DAILY #30 tab Continue Medroxyprogesterone Acetate [Depo-Provera] 150 mg IM Q30D Cholecalciferol [Vitamin D3] 5,000 unit PO DAILY Ibuprofen [Motrin] 800 mg PO TID PRN PRN Reason: Pain Aspirin EC [Ecotrin] 325 mg PO DAILY Ranitidine HCl [Zantac] 150 mg PO BID Loratadine [Claritin] 10 mg PO DAILY PRN PRN Reason: ALLERGIES Metoprolol Tartrate 25 mg PO BID ARIPiprazole [Abilify] 10 mg PO HS #30 Discontinued Triamcinolone 0.5% Cream [Kenalog 0.5% Cream] 1 applic TOPICAL BID Venlafaxine HCl [Effexor XR] 37.5 mg PO DAILY Discharge Medication List Aspirin EC [Ecotrin] 325 mg PO DAILY 02/24/17 [History] Cholecalciferol [Vitamin D3] 5,000 unit PO DAILY 02/24/17 [History] Ibuprofen [Motrin] 800 mg PO TID PRN 02/24/17 [History] Loratadine [Claritin] 10 mg PO DAILY PRN 02/24/17 [History] Medroxyprogesterone Acetate [Depo-Provera] 150 mg IM Q30D 02/24/17 [History] Metoprolol Tartrate 25 mg PO BID 02/24/17 [History] Ranitidine HCl [Zantac] 150 mg PO BID 02/24/17 [History] ARIPiprazole [Abilify] 10 mg PO HS #30 02/28/17 [Rx] Sertraline [Zoloft] 50 mg PO DAILY #30 tab 02/28/17 [Rx] hydrOXYzine PAMOATE [Vistaril] 25 mg PO Q8HR PRN #30 cap 02/28/17 [Rx] Follow up Appointment(s)/Referral(s): intake,int[facility] [[facility] - 03/13/17 3:30 pm (Dr Nevarez) [facility] [Outside] - 03/01/17 1:00 pm (Libertad Fitzgerald ) None,Stated [Primary Care Provider] - 1-2 days
== END 2017-02-28 12:11 | disposition home or self-care (01) | DRG 885 ==
LOC: EC 14:34 → 3MHU 19:34
PROVIDERS: ADMIT Psychiatry & Neurology Psychiatry; ATTEND Psychiatry & Neurology Psychiatry
DX: F33.2 Major depressive disorder, recurrent severe without psychotic features (principal); F11.20 Opioid dependence, uncomplicated; R45.851 Suicidal ideations; F41.0 Panic disorder [episodic paroxysmal anxiety]; F43.10 Post-traumatic stress disorder, unspecified; F60.3 Borderline personality disorder; Z88.6 Allergy status to analgesic agent; Z88.1 Allergy status to other antibiotic agents; Z88.5 Allergy status to narcotic agent; Z88.2 Allergy status to sulfonamides; Z91.410 Personal history of adult physical and sexual abuse; Z62.810 Personal history of physical and sexual abuse in childhood; Z79.899 Other long term (current) drug therapy; Z87.891 Personal history of nicotine dependence
CPT/HCPCS: 80053; 80306; 81025; 82075; 84443; 84484; 85025; 93005

== ENCOUNTER 2017-03-28 19:07 | Emergency (ER) | payer OTHER ==
[2017-03-28] MEDS ORDERED: SODIUM CHLORIDE 0.9% 1,000 ML IV ONE (19:42)
[2017-03-28] MEDS ORDERED: ONDANSETRON 4 MG/2 ML VIAL IVP STA (19:42)
[2017-03-28] MEDS ORDERED: KETOROLAC 30 MG/ML 1 ML VIAL IVP STA (19:42)
[2017-03-28 19:45] VITALS: TEMP 98.7
--- NOTE | 2017-03-28 19:45 | ED ---
General Adult HPI - General Chief complaint: Urogenital Stated complaint: kidney pain Source: patient Mode of arrival: EMS Limitations: no limitations - History of Present Illness Initial comments: Patient is a 31-year-old female presents for evaluation for left mid thoracal lumbar pain that radiates around to her left flank and hematuria. Past medical history as below. Patient currently resides in a drug rehab program. She states that she is having "kidney pain". She has a history of this in the past. Not as severe though. She discussed it as a sharp/burning pain. Laying still makes it better. Nothing seems to make it work. She has pain and burning with urination. Noted to have blood in her urine. However, she saw on her menstrual cycle currently. She has associated nausea. No history of kidney stones. However, she states that she's been admitted in the past for kidney infections. Currently denies fever, chills, headache, changes in vision , URI symptoms, shortness breath, cough, chest pain, vomiting, diarrhea. - Related Data Home Medications Medication Instructions Recorded Confirmed Aspirin EC [Ecotrin] 325 mg PO DAILY 02/24/17 03/28/17 Cholecalciferol [Vitamin D3] 5,000 unit PO DAILY 02/24/17 03/28/17 Ibuprofen [Motrin] 800 mg PO TID PRN 02/24/17 03/28/17 Loratadine [Claritin] 10 mg PO DAILY PRN 02/24/17 03/28/17 Medroxyprogesterone Acetate 150 mg IM Q90D 02/24/17 03/28/17 [Depo-Provera] Metoprolol Tartrate 25 mg PO BID 02/24/17 03/28/17 Ranitidine HCl [Zantac] 150 mg PO BID 02/24/17 03/28/17 Sertraline [Zoloft] 100 mg PO DAILY 03/28/17 03/28/17 Vivitrol 1 injection INJ Q28D 03/28/17 03/28/17 Previous Rx's Medication Instructions Recorded ARIPiprazole [Abilify] 10 mg PO HS #30 02/28/17 hydrOXYzine PAMOATE [Vistaril] 25 mg PO Q8HR PRN #30 cap 02/28/17 Polyethylene Glycol 3350 [Miralax] 17 gm PO DAILY #10 packet 03/28/17 Allergies Allergy/AdvReac Type Severity Reaction Status Date / Time acetaminophen [From Vicodin] Allergy Unknown Verified 03/28/17 19:47 azithromycin Allergy Rash/Hives Verified 03/28/17 19:47 ciprofloxacin Allergy Unknown Verified 03/28/17 19:47 codeine Allergy Unknown Verified 03/28/17 19:47 hydrocodone [From Vicodin] Allergy Unknown Verified 03/28/17 19:47 levofloxacin [From Levaquin] Allergy Rash/Hives Verified 03/28/17 19:47 sulfamethoxazole Allergy Rash/Hives Verified 03/28/17 19:47 [From Bactrim] tramadol Allergy Rash/Hives Verified 03/28/17 19:47 trimethoprim [From Bactrim] Allergy Rash/Hives Verified 03/28/17 19:47 diphenhydramine HCl AdvReac Rapid Verified 03/28/17 19:47 [From Benadryl] Heart Rate egg AdvReac Nausea & Verified 03/28/17 19:47 Vomiting Review of Systems ROS Statement: Those systems with pertinent positive or pertinent negative responses have been documented in the HPI. ROS Other: All systems not noted in ROS Statement are negative. Past Medical History Past Medical History: Atrial Fibrillation, Asthma, GERD/Reflux, Pneumonia Additional Past Medical History / Comment(s): history of drug addiction, kidney stones, UTI. BRONCHITS,"MURMUR","TACHYCARDIA", USED TO TAKE DEPAKOTE FOR HER PERSONALITY DISORDER/BIPOLAR- HAD SEIZURES WHEN HER DEPAKOTE RAN OUT AND QUIT COLD TURKEY-DID'NT RESUME IT" PT STATED SHE THINKS SHE HAD A MILD SEIZURE ."HEADACHES". History of Any Multi-Drug Resistant Organisms: None Reported Past Surgical History: Cholecystectomy, Tubal Ligation Past Anesthesia/Blood Transfusion Reactions: No Reported Reaction Additional Past Anesthesia/Blood Transfusion Reaction / Comment(s): had blood transfusion age 16(lost a baby)-no reactin to blood Past Psychological History: ADD/ADHD, Anxiety, Bipolar, PTSD Smoking Status: Never smoker Past Alcohol Use History: None Reported Past Drug Use History: Cocaine, Heroin, Marijuana - Past Family History Father Family Medical History: Cancer Additional Family Medical History / Comment(s): Father at age 61 from lung CA Mother Family Medical History: Seizure Disorder Additional Family Medical History / Comment(s): Mother is alive at age 57 with history of bipolar/schitzophrenia Brother(s) Additional Family Medical History / Comment(s): She has one half brother that abuses cocaine and methamphetamines. She does not have any contact with him. Patient has 1 sister with no major medical problems. Patient does not have any children. General Exam Limitations: no limitations General appearance: alert, in no apparent distress, other (Sitting up comfortably in the stretcher) Head exam: Present: atraumatic, normocephalic, normal inspection Eye exam: Present: normal appearance, PERRL, EOMI. Absent: scleral icterus, conjunctival injection, periorbital swelling ENT exam: Present: normal exam, mucous membranes moist Neck exam: Present: normal inspection. Absent: tenderness, meningismus, lymphadenopathy Respiratory exam: Present: normal lung sounds bilaterally. Absent: respiratory distress, wheezes, rales, rhonchi, stridor Cardiovascular Exam: Present: regular rate, normal rhythm, normal heart sounds. Absent: systolic murmur, diastolic murmur, rubs, gallop, clicks GI/Abdominal exam: Present: soft, normal bowel sounds, other (Positive Jonathon sign on the left. Pain with palpation of the left upper flank. Soft abdomen. No peritoneal signs. No suprapubic tenderness.). Absent: distended, tenderness , guarding, rebound, rigid Extremities exam: Present: normal inspection, full ROM, normal capillary refill. Absent: tenderness, pedal edema, joint swelling, calf tenderness Back exam: Present: normal inspection Neurological exam: Present: alert, oriented X3, CN II-XII intact Psychiatric exam: Present: normal affect, normal mood Skin exam: Present: warm, dry, intact, normal color. Absent: rash Course Vital Signs 03/28/17 19:30 Temperature 98.7 F Pulse Rate 91 Respiratory 20 Rate Blood Pressure 99/62 O2 Sat by Pulse 95 Oximetry Medical Decision Making - Medical Decision Making 1939: Patient is a 31-year-old female presents for evaluation for left flank pain times one day. Associated nausea. Radiates up to the left flank. Urinary symptoms. We'll order CT renal stone protocol with basic labs urinalysis Toradol Zofran and normal saline. We will avoid narcotics or any other sedative medications. 2119: Lavatory studies as below. Largely unremarkable. No urinary tract infection. Reviewed CT renal stone protocol which did not reveal any pathology to the kidneys. No nephrolithiasis. Noted to be constipated per the radiologist. Discussed with the patient. Requesting to go home. We'll discharge home with MiraLAX. Recommended Tylenol or Motrin for the pain at home. Encourage close follow-up with primary care physician. Discussed signs and symptoms on when to return to emergency department for further evaluation. Comfortable discharge home and follow-up. - Lab Data Result diagrams: 03/28/17 19:28 03/28/17 19:28 Lab Results 03/28/17 03/28/17 03/28/17 Range/Units 19:28 19:28 19:28 WBC 8.6 (3.8-10.6) k/uL RBC 4.34 (3.80-5.40) m/uL Hgb 14.1 (11.4-16.0) gm/dL Hct 41.5 (34.0-46.0) % MCV 95.7 (80.0-100.0) fL MCH 32.5 (25.0-35.0) pg MCHC 34.0 (31.0-37.0) g/dL RDW 12.9 (11.5-15.5) % Plt Count 291 (150-450) k/uL Neutrophils % 52 % Lymphocytes % 33 % Monocytes % 8 % Eosinophils % 2 % Basophils % 1 % Neutrophils # 4.5 (1.3-7.7) k/uL Lymphocytes # 2.9 (1.0-4.8) k/uL Monocytes # 0.7 (0-1.0) k/uL Eosinophils # 0.2 (0-0.7) k/uL Basophils # 0.1 (0-0.2) k/uL Sodium 138 (137-145) mmol/L Potassium 4.6 (3.5-5.1) mmol/L Chloride 107 (98-107) mmol/L Carbon Dioxide 24 (22-30) mmol/L Anion Gap 7 mmol/L BUN 16 (7-17) mg/dL Creatinine 0.68 (0.52-1.04) mg/dL Est GFR (MDRD) Af Amer >60 (>60 ml/min/1.73 sqM) Est GFR (MDRD) Non-Af >60 (>60 ml/min/1.73 sqM) Glucose 90 (74-99) mg/dL Calcium 9.3 (8.4-10.2) mg/dL Total Bilirubin 0.3 (0.2-1.3) mg/dL AST 19 (14-36) U/L ALT 30 (9-52) U/L Alkaline Phosphatase 53 (38-126) U/L Total Protein 6.9 (6.3-8.2) g/dL Albumin 3.7 (3.5-5.0) g/dL Urine Color Urine Appearance (Clear) Urine pH (5.0-8.0) Ur Specific [place] (1.001-1.035) Urine Protein (Negative) Urine Glucose (UA) (Negative) Urine Ketones (Negative) Urine Blood (Negative) Urine Nitrite (Negative) Urine Bilirubin (Negative) Urine Urobilinogen (<2.0) mg/dL Ur Leukocyte Esterase (Negative) Urine RBC (0-5) /hpf Urine WBC (0-5) /hpf Ur Squamous Epith Cells (0-4) /hpf Urine Bacteria (None) /hpf Urine Mucus (None) /hpf Urine HCG, Qual Not Detected (Not Detectd) 03/28/17 Range/Units 19:28 WBC (3.8-10.6) k/uL RBC (3.80-5.40) m/uL Hgb (11.4-16.0) gm/dL Hct (34.0-46.0) % MCV (80.0-100.0) fL MCH (25.0-35.0) pg MCHC (31.0-37.0) g/dL RDW (11.5-15.5) % Plt Count (150-450) k/uL Neutrophils % % Lymphocytes % % Monocytes % % Eosinophils % % Basophils % % Neutrophils # (1.3-7.7) k/uL Lymphocytes # (1.0-4.8) k/uL Monocytes # (0-1.0) k/uL Eosinophils # (0-0.7) k/uL Basophils # (0-0.2) k/uL Sodium (137-145) mmol/L Potassium (3.5-5.1) mmol/L Chloride (98-107) mmol/L Carbon Dioxide (22-30) mmol/L Anion Gap mmol/L BUN (7-17) mg/dL Creatinine (0.52-1.04) mg/dL Est GFR (MDRD) Af Amer (>60 ml/min/1.73 sqM) Est GFR (MDRD) Non-Af (>60 ml/min/1.73 sqM) Glucose (74-99) mg/dL Calcium (8.4-10.2) mg/dL Total Bilirubin (0.2-1.3) mg/dL AST (14-36) U/L ALT (9-52) U/L Alkaline Phosphatase (38-126) U/L Total Protein (6.3-8.2) g/dL Albumin (3.5-5.0) g/dL Urine Color Yellow Urine Appearance Clear (Clear) Urine pH 6.5 (5.0-8.0) Ur Specific [place] 1.020 (1.001-1.035) Urine Protein Negative (Negative) Urine Glucose (UA) Negative (Negative) Urine Ketones Negative (Negative) Urine Blood Trace H (Negative) Urine Nitrite Negative (Negative) Urine Bilirubin Negative (Negative) Urine Urobilinogen <2.0 (<2.0) mg/dL Ur Leukocyte Esterase Negative (Negative) Urine RBC 3 (0-5) /hpf Urine WBC 1 (0-5) /hpf Ur Squamous Epith Cells 6 H (0-4) /hpf Urine Bacteria Rare H (None) /hpf Urine Mucus Rare H (None) /hpf Urine HCG, Qual (Not Detectd) Disposition Clinical Impression: Abdominal pain, Nausea and vomiting Disposition: HOME SELF-CARE Condition: Good Instructions: Abdominal Pain (ED) Prescriptions: Polyethylene Glycol 3350 [Miralax] 17 gm PO DAILY #10 packet Referrals: None,Stated [Primary Care Provider] - 1-2 days Cecile Wright MD [REFERRING] - 1-2 days
[2017-03-28 20:00] LABS: Basophils # (A) 0.1 k/uL (0-0.2); Basophils % (A) 1 %; CH 32.5; CHCM 34.2; Eosinophils # (A) 0.2 k/uL (0-0.7); Eosinophils % (A) 2 %; HCT 41.5 % (34.0-46.0); HGB 14.1 gm/dL (11.4-16.0); Luc # (Auto) 0.29; Luc % (Auto) 3; Lymphocytes # (A) 2.9 k/uL (1.0-4.8); Lymphocytes % (A) 33 %; MCH 32.5 pg (25.0-35.0); MCV 95.7 fL (80.0-100.0); Mean Platelet Volume 6.6; Monocytes # (A) 0.7 k/uL (0-1.0); Monocytes % (A) 8 %; Neutrophils # (A) 4.5 k/uL (1.3-7.7); Neutrophils % (A) 52 %; RBC 4.34 m/uL (3.80-5.40); RDW 12.9 % (11.5-15.5); WBC 8.6 k/uL (3.8-10.6); WBC (Perox) 8.02
[2017-03-28 20:11] LABS: Appearance,Urine Clear (Clear); Bacteria,Urine Rare /hpf; Bilirubin,Urine Negative (Negative); Glucose,Urine (UA) Negative (Negative); Ketones,Urine Negative (Negative); Leukocyte Esterase,Urine Negative (Negative); Mucus,Urine Rare /hpf; Nitrite,Urine Negative (Negative); PH, Urine 6.5 (5.0-8.0); Particle Count 2198; Protein,Urine Negative (Negative); RBC,Urine 3 /hpf (0-5); Squamous Epithelial Cell,Urine 6 /hpf (0-4); UA Billing (MACRO vs. MICRO) MICRO; Urobilinogen,Urine <2.0 mg/dL (<2.0); WBC,Urine 1 /hpf (0-5)
[2017-03-28 20:47] LABS: ALT 30 U/L (9-52); AST 19 U/L (14-36); Alkaline Phosphatase 53 U/L (38-126); Anion Gap 7 mmol/L; Blood Urea Nitrogen 16 mg/dL (7-17); Calcium 9.3 mg/dL (8.4-10.2); Carbon Dioxide 24 mmol/L (22-30); Chloride 107 mmol/L (98-107); Glucose 90 mg/dL (74-99); Non-African American GFR(MDRD) >60 (>60 ml/min/1.73 sqM); Potassium 4.6 mmol/L (3.5-5.1); Sodium 138 mmol/L (137-145); Total Bilirubin 0.3 mg/dL (0.2-1.3); Total Protein 6.9 g/dL (6.3-8.2)
--- NOTE | 2017-03-28 20:59 | CT ---
EXAMINATION TYPE: CT renal stones wo con DATE OF EXAM: 03/28/2017 HISTORY: Flank pain with hematuria and pain during urination CT DLP: 460.3 mGycm. Automated Exposure Control for Dose Reduction was Utilized. TECHNIQUE: CT scan of the abdomen and pelvis is performed without oral or IV contrast. COMPARISON: 06/29/2015 FINDINGS: Lung bases are clear of consolidation. There is no pleural effusion. Liver spleen pancreas appear normal. There are clips from cholecystectomy. Bile ducts are not dilated . There is no adrenal mass. Kidneys have normal size and contour. There is no hydronephrosis. Ureters a re not dilated. There is no retroperitoneal adenopathy. I see no intestinal wall thickening. There are no dilated loops. There are clips in the pelvis probab ly from tubal ligation. Appendix is not definitely seen. There is no sign of appendicitis. I see no evidence of a bowel obstr uction. Bony structures are intact. Bladder distends smoothly. IMPRESSION: No evidence of renal stone or obstruction. Constipation. No significant change compared t o old exam.
[2017-03-28 21:39] VITALS: BP 95/60; PULSE 84; RESP 18
== END 2017-03-28 21:38 | disposition home or self-care (01) ==
LOC: EC 19:07
DX: R10.9 Unspecified abdominal pain (principal); R11.2 Nausea with vomiting, unspecified; K59.00 Constipation, unspecified; J45.909 Unspecified asthma, uncomplicated; I48.91 Unspecified atrial fibrillation; K21.9 Gastro-esophageal reflux disease without esophagitis; F11.21 Opioid dependence, in remission; F31.9 Bipolar disorder, unspecified; F41.9 Anxiety disorder, unspecified; F90.9 Attention-deficit hyperactivity disorder, unspecified type; F43.10 Post-traumatic stress disorder, unspecified; Z79.82 Long term (current) use of aspirin; Z79.3 Long term (current) use of hormonal contraceptives; Z79.899 Other long term (current) drug therapy; Z88.5 Allergy status to narcotic agent; Z88.2 Allergy status to sulfonamides; Z88.6 Allergy status to analgesic agent; Z88.1 Allergy status to other antibiotic agents; Z91.012 Allergy to eggs; Z87.898 Personal history of other specified conditions; Z87.01 Personal history of pneumonia (recurrent)
CPT/HCPCS: 36415; 80053; 85025; 81001; 81025; 74150; 96374; 96375; 96361; 99285; J2405; J1885

== ENCOUNTER 2017-05-05 20:59 | Emergency (ER) | payer OTHER ==
[2017-05-05] MEDS ORDERED: SODIUM CHLORIDE 0.9% 500 ML IV STA (21:05)
[2017-05-05] MEDS ORDERED: SODIUM CHLORIDE 0.9% 1,000 ML IV STA (21:05)
--- NOTE | 2017-05-05 21:19 | ED ---
General Adult HPI - General Stated complaint: CHEST PAIN Time Seen by Provider: 05/05/17 21:00 Source: RN notes reviewed, old records reviewed - History of Present Illness Initial comments: This is a 31-year-old female yesterday. Patient's present ER today for evaluation regarding chest pain. History of chest pain. History of drug abuse. Patient states she has history of heart disease. No prior history of stents, no significant history of heart damage. No prior cardiac catheterizations. There is no congestion. Patient's pain started tonight 11 and has been persistent. No modifying factors for pain. - Related Data Home Medications Medication Instructions Recorded Confirmed Metoprolol Tartrate 25 mg PO BID 02/24/17 05/05/17 Sertraline [Zoloft] 200 mg PO HS 03/28/17 05/05/17 QUEtiapine [SEROquel] 50 mg PO HS 05/05/17 05/05/17 Vivitrol 380mg Injection 380 mg IM Q28D 05/05/17 05/05/17 Allergies Allergy/AdvReac Type Severity Reaction Status Date / Time acetaminophen [From Vicodin] Allergy Unknown Verified 05/05/17 22:31 azithromycin Allergy Rash/Hives Verified 05/05/17 22:31 ciprofloxacin Allergy Unknown Verified 05/05/17 22:31 codeine Allergy Unknown Verified 05/05/17 22:31 hydrocodone [From Vicodin] Allergy Unknown Verified 05/05/17 22:31 levofloxacin [From Levaquin] Allergy Rash/Hives Verified 05/05/17 22:31 sulfamethoxazole Allergy Rash/Hives Verified 05/05/17 22:31 [From Bactrim] tramadol Allergy Rash/Hives Verified 05/05/17 22:31 trimethoprim [From Bactrim] Allergy Rash/Hives Verified 05/05/17 22:31 diphenhydramine HCl AdvReac Rapid Verified 05/05/17 22:31 [From Benadryl] Heart Rate egg AdvReac Nausea & Verified 05/05/17 22:31 Vomiting Review of Systems ROS Statement: Those systems with pertinent positive or pertinent negative responses have been documented in the HPI. ROS Other: All systems not noted in ROS Statement are negative. Past Medical History Past Medical History: Asthma, GERD/Reflux, Pneumonia Additional Past Medical History / Comment(s): history of drug addiction, kidney stones, UTI. 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 History of Any Multi-Drug Resistant Organisms: None Reported Past Surgical History: Cholecystectomy, Tubal Ligation Past Anesthesia/Blood Transfusion Reactions: No Reported Reaction Additional Past Anesthesia/Blood Transfusion Reaction / Comment(s): had blood transfusion age 16(lost a baby)-no reactin to blood Past Psychological History: ADD/ADHD, Anxiety, Bipolar, PTSD Smoking Status: Never smoker Past Alcohol Use History: None Reported Past Drug Use History: Cocaine, Heroin, Marijuana - Past Family History Father Family Medical History: Cancer Additional Family Medical History / Comment(s): Father at age 61 from lung CA Mother Family Medical History: Seizure Disorder Additional Family Medical History / Comment(s): Mother is alive at age 57 with history of bipolar/schitzophrenia Brother(s) Additional Family Medical History / Comment(s): She has one half brother that abuses cocaine and methamphetamines. She does not have any contact with him. Patient has 1 sister with no major medical problems. Patient does not have any children. General Exam General appearance: alert, in no apparent distress Head exam: Present: atraumatic, normocephalic, normal inspection Eye exam: Present: normal appearance, PERRL, EOMI. Absent: scleral icterus, conjunctival injection, periorbital swelling ENT exam: Present: normal exam, mucous membranes moist Neck exam: Present: normal inspection. Absent: tenderness, meningismus, lymphadenopathy Respiratory exam: Present: normal lung sounds bilaterally. Absent: respiratory distress, wheezes, rales, rhonchi, stridor Cardiovascular Exam: Present: regular rate, normal rhythm, normal heart sounds. Absent: systolic murmur, diastolic murmur, rubs, gallop, clicks GI/Abdominal exam: Present: soft, normal bowel sounds. Absent: distended, tenderness, guarding, rebound, rigid Extremities exam: Present: normal inspection, full ROM, normal capillary refill. Absent: tenderness, pedal edema, joint swelling, calf tenderness Back exam: Present: normal inspection Neurological exam: Present: alert, oriented X3, CN II-XII intact Psychiatric exam: Present: normal affect, normal mood Skin exam: Present: warm, dry, intact, normal color. Absent: rash Course Vital Signs 05/05/17 05/05/17 21:00 22:32 Temperature 98.6 F 98.6 F Pulse Rate 78 73 Pulse Rate [ 72 Bilateral Online Ad[employer] ] Respiratory 16 16 Rate Blood Pressure 102/60 104/73 O2 Sat by Pulse 97 96 Oximetry - Reevaluation(s) Reevaluation #1: 05/05/17 21:34 Medical record of prior ER visits in inpatient hospitalizations are reviewed Reevaluation #2: 05/05/17 22:45 Patient is in no acute distress EKG Findings - EKG Comments: EKG Findings:: EKG shows normal sinus a rate of 76, IL 124, QRS 100, QTC 454 Medical Decision Making - Medical Decision Making 31 [id number] chest pain. Chest erythematous resolved. Patient's this patient is well controlled, history of drug abuse, patient was discharged home - Lab Data Result diagrams: 05/05/17 21:26 05/05/17 21:26 Lab Results 05/05/17 05/05/17 05/05/17 Range/Units 21:26 21:26 21:26 WBC 6.1 (3.8-10.6) k/uL RBC 4.19 (3.80-5.40) m/uL Hgb 13.8 (11.4-16.0) gm/dL Hct 40.9 (34.0-46.0) % MCV 97.7 (80.0-100.0) fL MCH 32.9 (25.0-35.0) pg MCHC 33.7 (31.0-37.0) g/dL RDW 13.4 (11.5-15.5) % Plt Count 218 (150-450) k/uL Neutrophils % 46 % Lymphocytes % 38 % Monocytes % 9 % Eosinophils % 3 % Basophils % 1 % Neutrophils # 2.8 (1.3-7.7) k/uL Lymphocytes # 2.3 (1.0-4.8) k/uL Monocytes # 0.6 (0-1.0) k/uL Eosinophils # 0.2 (0-0.7) k/uL Basophils # 0.0 (0-0.2) k/uL PT (9.0-12.0) sec INR (<1.2) APTT (22.0-30.0) sec Sodium 142 (137-145) mmol/L Potassium 4.6 (3.5-5.1) mmol/L Chloride 110 H (98-107) mmol/L Carbon Dioxide 23 (22-30) mmol/L Anion Gap 9 mmol/L BUN 6 L (7-17) mg/dL Creatinine 0.70 (0.52-1.04) mg/dL Est GFR (MDRD) Af Amer >60 (>60 ml/min/1.73 sqM) Est GFR (MDRD) Non-Af >60 (>60 ml/min/1.73 sqM) Glucose 85 (74-99) mg/dL Calcium 9.2 (8.4-10.2) mg/dL Magnesium 2.0 (1.6-2.3) mg/dL Total Bilirubin 0.2 (0.2-1.3) mg/dL AST 25 (14-36) U/L ALT 40 (9-52) U/L Alkaline Phosphatase 65 (38-126) U/L Total Creatine Kinase 95 (30-135) U/L CK-MB (CK-2) 0.8 (0.0-2.4) ng/mL CK-MB (CK-2) Rel Index 0.8 Troponin I <0.012 (0.000-0.034) ng/mL NT-Pro-B Natriuret Pep pg/mL Total Protein 6.7 (6.3-8.2) g/dL Albumin 3.6 (3.5-5.0) g/dL Lipase 191 (23-300) U/L 05/05/17 05/05/17 Range/Units 21:26 21:26 WBC (3.8-10.6) k/uL RBC (3.80-5.40) m/uL Hgb (11.4-16.0) gm/dL Hct (34.0-46.0) % MCV (80.0-100.0) fL MCH (25.0-35.0) pg MCHC (31.0-37.0) g/dL RDW (11.5-15.5) % Plt Count (150-450) k/uL Neutrophils % % Lymphocytes % % Monocytes % % Eosinophils % % Basophils % % Neutrophils # (1.3-7.7) k/uL Lymphocytes # (1.0-4.8) k/uL Monocytes # (0-1.0) k/uL Eosinophils # (0-0.7) k/uL Basophils # (0-0.2) k/uL PT 11.4 (9.0-12.0) sec INR 1.1 (<1.2) APTT 23.9 (22.0-30.0) sec Sodium (137-145) mmol/L Potassium (3.5-5.1) mmol/L Chloride (98-107) mmol/L Carbon Dioxide (22-30) mmol/L Anion Gap mmol/L BUN (7-17) mg/dL Creatinine (0.52-1.04) mg/dL Est GFR (MDRD) Af Amer (>60 ml/min/1.73 sqM) Est GFR (MDRD) Non-Af (>60 ml/min/1.73 sqM) Glucose (74-99) mg/dL Calcium (8.4-10.2) mg/dL Magnesium (1.6-2.3) mg/dL Total Bilirubin (0.2-1.3) mg/dL AST (14-36) U/L ALT (9-52) U/L Alkaline Phosphatase (38-126) U/L Total Creatine Kinase (30-135) U/L CK-MB (CK-2) (0.0-2.4) ng/mL CK-MB (CK-2) Rel Index Troponin I (0.000-0.034) ng/mL NT-Pro-B Natriuret Pep 134 pg/mL Total Protein (6.3-8.2) g/dL Albumin (3.5-5.0) g/dL Lipase (23-300) U/L - Radiology Data Radiology results: report reviewed (Chest x-ray is negative for acute disease), image reviewed Disposition Clinical Impression: Chest pain Disposition: HOME SELF-CARE Condition: Good Instructions: Chest Pain (ED) Referrals: None,Stated [Primary Care Provider] - 1-2 days
[2017-05-05 21:35] LABS: Basophils % (A) 1 %; CH 32.7; CHCM 33.6; Eosinophils # (A) 0.2 k/uL (0-0.7); Eosinophils % (A) 3 %; HCT 40.9 % (34.0-46.0); HDW 2.48; HGB 13.8 gm/dL (11.4-16.0); Luc # (Auto) 0.17; Luc % (Auto) 3; Lymphocytes # (A) 2.3 k/uL (1.0-4.8); Lymphocytes % (A) 38 %; MCH 32.9 pg (25.0-35.0); MCHC 33.7 g/dL (31.0-37.0); MCV 97.7 fL (80.0-100.0); Mean Platelet Volume 6.9; Monocytes # (A) 0.6 k/uL (0-1.0); Monocytes % (A) 9 %; Neutrophils # (A) 2.8 k/uL (1.3-7.7); Neutrophils % (A) 46 %; RBC 4.19 m/uL (3.80-5.40); RDW 13.4 % (11.5-15.5); WBC 6.1 k/uL (3.8-10.6); WBC (Perox) 6.36
[2017-05-05 21:46] LABS: INR 1.1 (<1.2); Partial Thromboplastin Time 23.9 sec (22.0-30.0); Prothrombin Time 11.4 sec (9.0-12.0)
[2017-05-05 21:51] LABS: ALT 40 U/L (9-52); AST 25 U/L (14-36); Alkaline Phosphatase 65 U/L (38-126); Anion Gap 9 mmol/L; Blood Urea Nitrogen 6 mg/dL (7-17); Calcium 9.2 mg/dL (8.4-10.2); Carbon Dioxide 23 mmol/L (22-30); Chloride 110 mmol/L (98-107); Glucose 85 mg/dL (74-99); Non-African American GFR(MDRD) >60 (>60 ml/min/1.73 sqM); Potassium 4.6 mmol/L (3.5-5.1); Sodium 142 mmol/L (137-145); Total Bilirubin 0.2 mg/dL (0.2-1.3); Total Protein 6.7 g/dL (6.3-8.2)
--- NOTE | 2017-05-05 21:53 | XR ---
EXAMINATION TYPE: XR chest 2V DATE OF EXAM: 05/05/2017 COMPARISON: December 02, 2016. HISTORY: Chest pain today. TECHNIQUE: Frontal and lateral views of the chest are obtained. FINDINGS: There is no focal air space opacity, pleural effusion, or pneumothorax seen. The cardiac silhouette size is within normal limits. The osseous structures are intact. IMPRESSION: No acute cardiopulmonary process.
[2017-05-05 21:54] LABS: Creatine Kinase 95 U/L (30-135)
[2017-05-05 22:07] LABS: Creatine Kinase MB 0.8 ng/mL (0.0-2.4); Troponin I <0.012 ng/mL (0.000-0.034)
[2017-05-05] MEDS ORDERED: HYDROmorphone 2 MG/ML 1 ML SYRINGE IVP STA (22:38)
[2017-05-05 23:05] VITALS: BP 110/68; PULSE 76; RESP 18; TEMP 98.4
== END 2017-05-05 23:04 | disposition home or self-care (01) ==
LOC: EC 20:59
DX: R07.9 Chest pain, unspecified (principal); F90.9 Attention-deficit hyperactivity disorder, unspecified type; F31.9 Bipolar disorder, unspecified; F41.9 Anxiety disorder, unspecified; F43.10 Post-traumatic stress disorder, unspecified; Z79.899 Other long term (current) drug therapy; Z88.1 Allergy status to other antibiotic agents; Z88.5 Allergy status to narcotic agent; Z88.2 Allergy status to sulfonamides; Z91.012 Allergy to eggs; Z88.8 Allergy status to other drugs, medicaments and biological substances
CPT/HCPCS: 36415; 93005; 83880; 80053; 82550; 82553; 83690; 83735; 84484; 85025; 85610; 85730; 71020; 99285; 96374; 96361; J1170

== ENCOUNTER 2017-05-07 22:55 | Observation (INO) | payer OTHER ==
[2017-05-07] MEDS ORDERED: ASPIRIN 81 MG CHEW PO STA (23:13)
[2017-05-07] MEDS ORDERED: NITROGLYCERIN SL TABS 0.4 MG TAB SUBLINGUAL STA ×3 (23:13)
--- NOTE | 2017-05-07 23:18 | ED ---
General Adult HPI - General Chief complaint: Chest Pain Stated complaint: chest pain Time Seen by Provider: 05/07/17 23:08 Source: patient, EMS, RN notes reviewed Mode of arrival: EMS Limitations: no limitations - History of Present Illness Initial comments: Patient is a pleasant 31-year-old female presenting to the emergency department complain of chest discomfort. Onset was around 2 hours ago while at rest. Patient has sharp/pressure in her chest without radiation. Patient does feel somewhat short of breath. No nausea or diaphoresis. Patient does have similar symptoms frequently and usually gets them around every month. Patient has been previously admitted for this. Patient did see cardiology yesterday and Dr. Person told her if symptoms return that she should be admitted. Discomfort is somewhat severe at this time. No leg pain or leg - Related Data Home Medications Medication Instructions Recorded Confirmed Metoprolol Tartrate 25 mg PO BID 02/24/17 05/07/17 Sertraline [Zoloft] 200 mg PO HS 03/28/17 05/07/17 QUEtiapine [SEROquel] 50 mg PO HS 05/05/17 05/07/17 Vivitrol 380mg Injection 380 mg IM Q28D 05/05/17 05/07/17 Allergies Allergy/AdvReac Type Severity Reaction Status Date / Time acetaminophen [From Vicodin] Allergy Unknown Verified 05/07/17 23:20 azithromycin Allergy Rash/Hives Verified 05/07/17 23:20 ciprofloxacin Allergy Unknown Verified 05/07/17 23:20 codeine Allergy Unknown Verified 05/07/17 23:20 hydrocodone [From Vicodin] Allergy Unknown Verified 05/07/17 23:20 levofloxacin [From Levaquin] Allergy Rash/Hives Verified 05/07/17 23:20 sulfamethoxazole Allergy Rash/Hives Verified 05/07/17 23:20 [From Bactrim] tramadol Allergy Rash/Hives Verified 05/07/17 23:20 trimethoprim [From Bactrim] Allergy Rash/Hives Verified 05/07/17 23:20 diphenhydramine HCl AdvReac Rapid Verified 05/07/17 23:20 [From Benadryl] Heart Rate egg AdvReac Nausea & Verified 05/07/17 23:20 Vomiting Review of Systems ROS Statement: Those systems with pertinent positive or pertinent negative responses have been documented in the HPI. ROS Other: All systems not noted in ROS Statement are negative. Constitutional: Denies: fever Eyes: Denies: eye pain ENT: Denies: ear pain Respiratory: Denies: cough Cardiovascular: Reports: chest pain Endocrine: Denies: fatigue Gastrointestinal: Denies: abdominal pain Genitourinary: Denies: dysuria Musculoskeletal: Denies: back pain Skin: Denies: rash Neurological: Denies: weakness Past Medical History Past Medical History: Asthma, Heart Failure, GERD/Reflux, Pneumonia Additional Past Medical History / Comment(s): history of drug addiction, kidney stones, UTI. 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 History of Any Multi-Drug Resistant Organisms: None Reported Past Surgical History: Cholecystectomy, Tubal Ligation Past Anesthesia/Blood Transfusion Reactions: No Reported Reaction Additional Past Anesthesia/Blood Transfusion Reaction / Comment(s): had blood transfusion age 16(lost a baby)-no reactin to blood Past Psychological History: ADD/ADHD, Anxiety, Bipolar, PTSD Smoking Status: Never smoker Past Alcohol Use History: None Reported Past Drug Use History: Cocaine, Heroin, Marijuana - Past Family History Father Family Medical History: Cancer Additional Family Medical History / Comment(s): Father at age 61 from lung CA Mother Family Medical History: Seizure Disorder Additional Family Medical History / Comment(s): Mother is alive at age 57 with history of bipolar/schitzophrenia Brother(s) Additional Family Medical History / Comment(s): She has one half brother that abuses cocaine and methamphetamines. She does not have any contact with him. Patient has 1 sister with no major medical problems. Patient does not have any children. General Exam Limitations: no limitations General appearance: alert, in no apparent distress Head exam: Present: atraumatic Eye exam: Present: normal appearance, PERRL ENT exam: Present: normal oropharynx Neck exam: Present: normal inspection Respiratory exam: Present: normal lung sounds bilaterally, chest wall tenderness (Left sternal border) Cardiovascular Exam: Present: regular rate, normal rhythm Expanded Peripheral pulses: 2+: Radial (R), Radial (L), Dorsalis Pedis (R), Dorsalis Pedis (L) GI/Abdominal exam: Present: soft. Absent: tenderness Extremities exam: Present: normal inspection. Absent: pedal edema, calf tenderness Neurological exam: Present: alert Psychiatric exam: Present: normal affect, normal mood Skin exam: Present: normal color Course Vital Signs 05/07/17 05/07/17 23:01 23:38 Temperature 98.2 F Pulse Rate 84 80 Respiratory 20 16 Rate Blood Pressure 100/59 88/64 O2 Sat by Pulse 98 96 Oximetry EKG Findings - EKG Comments: EKG Findings:: Normal sinus rhythm 75. MN 132. QRS 98. QT 402. QTC 440. Left axis. Left anterior fascicular block. No acute ST change. Medical Decision Making - Medical Decision Making Patient reevaluated and resting comfortably in bed. Patient updated on results and plan. Patient confirms Dr. Person with cardiology wanted her to be admitted. Case discussed with Dr. Denton, who will admit for hospital call. - Lab Data Result diagrams: 05/07/17 23:14 05/07/17 23:14 Lab Results 05/07/17 05/07/17 05/07/17 Range/Units 23:14 23:14 23:14 WBC 6.9 (3.8-10.6) k/uL RBC 4.46 (3.80-5.40) m/uL Hgb 13.9 (11.4-16.0) gm/dL Hct 43.3 (34.0-46.0) % MCV 97.2 (80.0-100.0) fL MCH 31.2 (25.0-35.0) pg MCHC 32.1 (31.0-37.0) g/dL RDW 13.6 (11.5-15.5) % Plt Count 214 (150-450) k/uL Neutrophils % 49 % Lymphocytes % 37 % Monocytes % 8 % Eosinophils % 3 % Basophils % 0 % Neutrophils # 3.4 (1.3-7.7) k/uL Lymphocytes # 2.5 (1.0-4.8) k/uL Monocytes # 0.5 (0-1.0) k/uL Eosinophils # 0.2 (0-0.7) k/uL Basophils # 0.0 (0-0.2) k/uL PT (9.0-12.0) sec INR (<1.2) APTT (22.0-30.0) sec D-Dimer (<0.60) mg/L FEU Sodium 139 (137-145) mmol/L Potassium 4.4 (3.5-5.1) mmol/L Chloride 108 H (98-107) mmol/L Carbon Dioxide 22 (22-30) mmol/L Anion Gap 9 mmol/L BUN 14 (7-17) mg/dL Creatinine 0.70 (0.52-1.04) mg/dL Est GFR (MDRD) Af Amer >60 (>60 ml/min/1.73 sqM) Est GFR (MDRD) Non-Af >60 (>60 ml/min/1.73 sqM) Glucose 77 (74-99) mg/dL Calcium 9.1 (8.4-10.2) mg/dL Magnesium 1.6 (1.6-2.3) mg/dL Total Bilirubin 0.3 (0.2-1.3) mg/dL AST 18 (14-36) U/L ALT 41 (9-52) U/L Alkaline Phosphatase 60 (38-126) U/L Total Creatine Kinase 56 (30-135) U/L CK-MB (CK-2) 0.4 (0.0-2.4) ng/mL CK-MB (CK-2) Rel Index 0.7 Troponin I <0.012 (0.000-0.034) ng/mL Total Protein 6.8 (6.3-8.2) g/dL Albumin 3.6 (3.5-5.0) g/dL 05/07/17 Range/Units 23:14 WBC (3.8-10.6) k/uL RBC (3.80-5.40) m/uL Hgb (11.4-16.0) gm/dL Hct (34.0-46.0) % MCV (80.0-100.0) fL MCH (25.0-35.0) pg MCHC (31.0-37.0) g/dL RDW (11.5-15.5) % Plt Count (150-450) k/uL Neutrophils % % Lymphocytes % % Monocytes % % Eosinophils % % Basophils % % Neutrophils # (1.3-7.7) k/uL Lymphocytes # (1.0-4.8) k/uL Monocytes # (0-1.0) k/uL Eosinophils # (0-0.7) k/uL Basophils # (0-0.2) k/uL PT 11.9 (9.0-12.0) sec INR 1.2 H (<1.2) APTT 24.7 (22.0-30.0) sec D-Dimer 0.33 (<0.60) mg/L FEU Sodium (137-145) mmol/L Potassium (3.5-5.1) mmol/L Chloride (98-107) mmol/L Carbon Dioxide (22-30) mmol/L Anion Gap mmol/L BUN (7-17) mg/dL Creatinine (0.52-1.04) mg/dL Est GFR (MDRD) Af Amer (>60 ml/min/1.73 sqM) Est GFR (MDRD) Non-Af (>60 ml/min/1.73 sqM) Glucose (74-99) mg/dL Calcium (8.4-10.2) mg/dL Magnesium (1.6-2.3) mg/dL Total Bilirubin (0.2-1.3) mg/dL AST (14-36) U/L ALT (9-52) U/L Alkaline Phosphatase (38-126) U/L Total Creatine Kinase (30-135) U/L CK-MB (CK-2) (0.0-2.4) ng/mL CK-MB (CK-2) Rel Index Troponin I (0.000-0.034) ng/mL Total Protein (6.3-8.2) g/dL Albumin (3.5-5.0) g/dL - Radiology Data Radiology results: image reviewed (Chest x-ray shows no acute process) Disposition Clinical Impression: Chest pain Disposition: ADMITTED IP TO THIS [facility] Referrals: None,Stated [Primary Care Provider] - 1-2 days Decision Time: 00:06
[2017-05-07 23:25] LABS: Basophils % (A) 0 %; CH 32.7; CHCM 33.8; Eosinophils # (A) 0.2 k/uL (0-0.7); Eosinophils % (A) 3 %; HCT 43.3 % (34.0-46.0); HDW 2.44; HGB 13.9 gm/dL (11.4-16.0); Luc # (Auto) 0.21; Luc % (Auto) 3; Lymphocytes # (A) 2.5 k/uL (1.0-4.8); Lymphocytes % (A) 37 %; MCH 31.2 pg (25.0-35.0); MCHC 32.1 g/dL (31.0-37.0); MCV 97.2 fL (80.0-100.0); Mean Platelet Volume 6.8; Monocytes # (A) 0.5 k/uL (0-1.0); Monocytes % (A) 8 %; Neutrophils # (A) 3.4 k/uL (1.3-7.7); Neutrophils % (A) 49 %; RBC 4.46 m/uL (3.80-5.40); RDW 13.6 % (11.5-15.5); WBC 6.9 k/uL (3.8-10.6)
[2017-05-07 23:34] LABS: ALT 41 U/L (9-52); AST 18 U/L (14-36); Alkaline Phosphatase 60 U/L (38-126); Anion Gap 9 mmol/L; Blood Urea Nitrogen 14 mg/dL (7-17); Calcium 9.1 mg/dL (8.4-10.2); Carbon Dioxide 22 mmol/L (22-30); Chloride 108 mmol/L (98-107); Glucose 77 mg/dL (74-99); Magnesium 1.6 mg/dL (1.6-2.3); Non-African American GFR(MDRD) >60 (>60 ml/min/1.73 sqM); Potassium 4.4 mmol/L (3.5-5.1); Sodium 139 mmol/L (137-145); Total Bilirubin 0.3 mg/dL (0.2-1.3); Total Protein 6.8 g/dL (6.3-8.2)
[2017-05-07 23:37] LABS: INR 1.2 (<1.2); Partial Thromboplastin Time 24.7 sec (22.0-30.0); Prothrombin Time 11.9 sec (9.0-12.0)
[2017-05-07 23:45] LABS: Creatine Kinase 56 U/L (30-135)
--- NOTE | 2017-05-07 23:45 | XR ---
EXAM: XR Chest, 2 Views CLINICAL HISTORY: Reason: Chest Pain TECHNIQUE: Frontal and lateral views of the chest. COMPARISON: 05/05/17 FINDINGS: Lungs: Unremarkable. No consolidation. Pleural space: Unremarkable. No pneumothorax. Heart: Unremarkable. No cardiomegaly. Mediastinum: Unremarkable. Bones/joints: Unremarkable. IMPRESSION: Unremarkable chest x-rays.
[2017-05-07] MEDS ORDERED: SODIUM CHLORIDE 0.9% 500 ML IV STA (23:53)
[2017-05-07 23:58] LABS: Creatine Kinase MB 0.4 ng/mL (0.0-2.4); Troponin I <0.012 ng/mL (0.000-0.034)
[2017-05-08 01:34] VITALS: BMI 27.1
[2017-05-08] MEDS ORDERED: NITROGLYCERIN OINT 1 INCH/GM PACKET TOPICAL SCH (06:00)
[2017-05-08 06:09] LABS: Creatine Kinase 47 U/L (30-135)
[2017-05-08 06:21] LABS: Creatine Kinase MB 0.4 ng/mL (0.0-2.4); Troponin I <0.012 ng/mL (0.000-0.034)
[2017-05-08] MEDS ORDERED: NAPROXEN 250 MG TAB PO STA (08:59)
[2017-05-08] MEDS ORDERED: METOPROLOL TARTRATE 25 MG TAB PO SCH (09:00)
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
[2017-05-08 12:19] LABS: Creatine Kinase 50 U/L (30-135)
[2017-05-08 12:31] LABS: Creatine Kinase MB 0.3 ng/mL (0.0-2.4); Troponin I <0.012 ng/mL (0.000-0.034)
[2017-05-08] MEDS: NITROGLYCERIN SL TABS 0.4 MG TAB SUBLINGUAL PRN ×2 (12:38→14:57)
[2017-05-08 16:08] VITALS: BP 85/47; PULSE 99; RESP 16; TEMP 98.7
[2017-05-08] MEDS ORDERED: MAG HYDROX/AL HYDROX/SIMETH 30 ML CUP PO PRN (16:44)
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
--- NOTE | 2017-05-09 00:25 | P.DS ---
Providers Date of admission: 05/08/17 00:06 Expected date of discharge: 05/08/17 Attending physician: Kyle Denton Consults: 05/08/17 00:06 Consult Physician Urgent Consulting Provider: Jose Raul Le Consult Reason/Comments: cp Do you want consulting provider notified?: Yes Primary care physician: Stated None Hospital Course: Discharge diagnosis: #1 atypical chest pain. Most likely musculoskeletal versus GERD Rule out acute colitis syndrome #2 history of sinus tachycardia on metoprolol at home #3 anxiety depression and bipolar disorder #4 history of substance abuse Hospital course This is a 31-year-old female with a known history of a sinus tachycardia, anxiety depression and bipolar disorder and previous history of mental health unit admission presents to the emergency room with complaints of chest pain described as sharp associated with mild shortness of breath. This pain lasted for approximately 2 hours, came on while she was lying in bed watching television. She cannot verbalize any specific alleviating or aggravating factors. She states she again had pain overnight but does feel some mild discomfort at this time. She denies palpitations, dizziness, nausea or vomiting. The pain is reproducible to the left chest wall. EKG shows a normal sinus mechanism with poor R-wave progression. Chest x-ray is unremarkable. Troponins negative 3. D-dimer is negative. Patient had a unremarkable stress test in September of this year. Telemetry tracings since admission reveal SR in 70-80's with no evidence of arrythmmia or ectopy. Patient was continued on telemetry monitoring and serial troponins are negative. Cardiology recommends no further workup at this time. Patient will be given Maalox for gastric upset and a trial of Protonix for 4 weeks. Patient was recommended to follow with cardiology clinic. Patient was cleared by cardiology. Discharge physical examination was done Patient Condition at Discharge: Stable Plan - Discharge Summary New Discharge Prescriptions: New Pantoprazole Sodium [Protonix] 40 mg PO -BRKFST #30 tablet. Continue Metoprolol Tartrate 25 mg PO BID Sertraline [Zoloft] 200 mg PO HS QUEtiapine [SEROquel] 50 mg PO HS Vivitrol 380mg Injection 380 mg IM Q28D Discharge Medication List Metoprolol Tartrate 25 mg PO BID 02/24/17 [History] Sertraline [Zoloft] 200 mg PO HS 03/28/17 [History] QUEtiapine [SEROquel] 50 mg PO HS 05/05/17 [History] Vivitrol 380mg Injection 380 mg IM Q28D 05/05/17 [History] Pantoprazole Sodium [Protonix] 40 mg PO AC-BRKFST #30 tablet. 05/08/17 [Rx] Follow up Appointment(s)/Referral(s): None,Stated [Primary Care Provider] - 1-2 days Jose Raul Le MD [STAFF PHYSICIAN] - 05/17/17 1:15 pm (Follow up appointment will be May 17 @ 1:15pm) Patient Instructions/Handouts: Chest Pain (GEN) Discharge Disposition: HOME SELF-CARE
[2017-05-09] MEDS ORDERED: ASPIRIN 325 MG TAB PO SCH (09:00)
== END 2017-05-08 17:34 | disposition home or self-care (01) ==
LOC: EC 22:55 → 3OBS 05-08 00:06
PROVIDERS: ADMIT Hospitalist; ATTEND Hospitalist
DX: R07.89 Other chest pain (principal); R06.02 Shortness of breath; R00.0 Tachycardia, unspecified; F41.9 Anxiety disorder, unspecified; F31.9 Bipolar disorder, unspecified; F90.9 Attention-deficit hyperactivity disorder, unspecified type; F43.10 Post-traumatic stress disorder, unspecified; F60.9 Personality disorder, unspecified; F19.21 Other psychoactive substance dependence, in remission; I50.9 Heart failure, unspecified; K30 Functional dyspepsia; Z79.899 Other long term (current) drug therapy; Z88.5 Allergy status to narcotic agent; Z88.2 Allergy status to sulfonamides; Z88.1 Allergy status to other antibiotic agents; Z88.8 Allergy status to other drugs, medicaments and biological substances; Z91.012 Allergy to eggs; Z87.01 Personal history of pneumonia (recurrent); Z80.1 Family history of malignant neoplasm of trachea, bronchus and lung; Z82.0 Family history of epilepsy and other diseases of the nervous system; Z62.810 Personal history of physical and sexual abuse in childhood; E66.9 Obesity, unspecified; Z68.27 Body mass index [BMI] 27.0-27.9, adult
CPT/HCPCS: 99285; 96360; 36415; 93005; 85379; 80053; 82550 ×2; 82553 ×2; 83735; 84484 ×2; 85025; 85610; 85730; 71020; G0378

== ENCOUNTER 2017-05-20 16:25 | Emergency (ER) | payer OTHER ==
--- NOTE | 2017-05-20 16:55 | ED ---
Nausea/Vomiting/Diarrhea HPI - General Chief complaint: Abdominal Pain Stated complaint: vomiting Time Seen by Provider: 05/20/17 16:39 Source: EMS Mode of arrival: EMS Limitations: no limitations - History of Present Illness Initial comments: Patient is a 31-year-old female presents with a chief complaint of nausea and vomiting. Patient states that she woke up nauseous this morning at 6:00. She states that she has been throwing up all day though she is unable to give me an exact amount of times that she has thrown up. There are no aggravating or alleviating factors. Patient was recently started on antibiotic 3 days ago for urinary tract infection. She is unsure which antibiotic she is on. Patient thinks that she might be ALLERGIC to it. MD complaint: nausea, vomiting Onset/Timin -: days(s) Description of Vomiting: food contents Associated Abdominal Pain: No - Related Data Home Medications Medication Instructions Recorded Confirmed Metoprolol Tartrate 25 mg PO BID 02/24/17 05/20/17 Sertraline [Zoloft] 200 mg PO DAILY 03/28/17 05/20/17 QUEtiapine [SEROquel] 50 mg PO HS 05/05/17 05/20/17 Previous Rx's Medication Instructions Recorded Ondansetron Odt [Zofran Odt] 4 mg PO Q8HR PRN #12 tab 05/20/17 Phenazopyridine HCl [Pyridium] 200 mg PO TID PRN #6 tablet 05/20/17 Allergies Allergy/AdvReac Type Severity Reaction Status Date / Time acetaminophen [From Vicodin] Allergy Unknown Verified 05/20/17 17:06 azithromycin Allergy Rash/Hives Verified 05/20/17 17:06 ciprofloxacin Allergy Unknown Verified 05/20/17 17:06 codeine Allergy Unknown Verified 05/20/17 17:06 hydrocodone [From Vicodin] Allergy Unknown Verified 05/20/17 17:06 levofloxacin [From Levaquin] Allergy Rash/Hives Verified 05/20/17 17:06 sulfamethoxazole Allergy Rash/Hives Verified 05/20/17 17:06 [From Bactrim] tramadol Allergy Rash/Hives Verified 05/20/17 17:06 trimethoprim [From Bactrim] Allergy Rash/Hives Verified 05/20/17 17:06 diphenhydramine HCl AdvReac Rapid Verified 05/20/17 17:06 [From Benadryl] Heart Rate egg AdvReac Nausea & Verified 05/20/17 17:06 Vomiting Review of Systems ROS Statement: Those systems with pertinent positive or pertinent negative responses have been documented in the HPI. ROS Other: All systems not noted in ROS Statement are negative. Constitutional: Denies: fever, chills Eyes: Denies: vision change ENT: Denies: ear pain, throat pain Respiratory: Denies: cough, wheezes Cardiovascular: Denies: chest pain Endocrine: Denies: fatigue Gastrointestinal: Reports: nausea, vomiting. Denies: abdominal pain Genitourinary: Denies: urgency Musculoskeletal: Denies: back pain Skin: Reports: rash Neurological: Denies: headache, weakness, numbness Past Medical History Past Medical History: Asthma, GERD/Reflux, Pneumonia Additional Past Medical History / Comment(s): history of drug addiction, kidney stones, UTI. BRONCHITS,"TACHYCARDIA", USED TO TAKE DEPAKOTE FOR HER PERSONALITY DISORDER/BIPOLAR- HAD SEIZURES WHEN HER DEPAKOTE RAN OUT AND QUIT COLD TURKEY-DID'NT RESUME IT" PT STATED SHE THINKS SHE HAD A MILD SEIZURE 17."HEADACHES". History of Any Multi-Drug Resistant Organisms: None Reported Past Surgical History: Cholecystectomy, Tubal Ligation Past Anesthesia/Blood Transfusion Reactions: No Reported Reaction Additional Past Anesthesia/Blood Transfusion Reaction / Comment(s): had blood transfusion age 16(lost a baby)-no reactin to blood Past Psychological History: ADD/ADHD, Anxiety, Bipolar, PTSD Smoking Status: Never smoker Past Alcohol Use History: None Reported Past Drug Use History: Cocaine, Heroin, Marijuana - Past Family History Father Family Medical History: Cancer Additional Family Medical History / Comment(s): Father at age 61 from lung CA Mother Family Medical History: Seizure Disorder Additional Family Medical History / Comment(s): Mother is alive at age 57 with history of bipolar/schitzophrenia Brother(s) Additional Family Medical History / Comment(s): She has one half brother that abuses cocaine and methamphetamines. She does not have any contact with him. Patient has 1 sister with no major medical problems. Patient does not have any children. General Exam Limitations: no limitations General appearance: alert, in no apparent distress Head exam: Present: atraumatic, normocephalic Eye exam: Present: normal appearance ENT exam: Present: normal exam Neck exam: Present: normal inspection Respiratory exam: Present: normal lung sounds bilaterally. Absent: respiratory distress, wheezes Cardiovascular Exam: Present: regular rate, normal rhythm, normal heart sounds GI/Abdominal exam: Present: soft. Absent: distended, tenderness Rectal exam: Present: deferred Extremities exam: Present: normal inspection Back exam: Present: normal inspection Neurological exam: Present: alert, oriented X3 Psychiatric exam: Present: normal affect, normal mood Skin exam: Present: warm, dry, intact, rash (Patient has an annular, coalescent rash on her left shoulder. This is an isolated area. Patient does not admit to any itching or pain. Rash is non-raised and blanching.) Course Vital Signs 05/20/17 16:35 Temperature 99.2 F Pulse Rate 88 Respiratory 20 Rate Blood Pressure 99/88 O2 Sat by Pulse 99 Oximetry Medical Decision Making - Medical Decision Making Patient presents with chief complaint of nausea and vomiting for 1 day. Patient states she was recently started on an antibiotic for urinary tract infection. Patient thinks she might be ALLERGIC to the antibiotic. She also has a very small rash on her left upper shoulder that does not appear to be ALLERGIC in nature. We'll check test and treat patient for nausea. She was encouraged to continue taking her antibiotic as she has numerous medical ALLERGIES. 6:00 PM test is negative, patient was given a dose of Zofran. On reexamination, the patient is feeling better, her nausea is resolved. This time she is stable for discharge and follow-up with primary care. She was instructed on signs and symptoms that should prompt return visit to the emergency department. - Lab Data Lab Results 05/20/17 Range/Units 16:45 Urine HCG, Qual Not Detected (Not Detectd) Disposition Clinical Impression: Nausea & vomiting Disposition: HOME SELF-CARE Condition: Good Instructions: Acute Nausea and Vomiting (ED) Prescriptions: Ondansetron Odt [Zofran Odt] 4 mg PO Q8HR PRN #12 tab PRN Reason: Nausea Phenazopyridine HCl [Pyridium] 200 mg PO TID PRN #6 tablet PRN Reason: dysuria Referrals: Debbie Stone DO [Primary Care Provider] - 1-2 days
[2017-05-20] MEDS ORDERED: ONDANSETRON 4 MG/2 ML VIAL IVP STA (17:22)
[2017-05-20 18:08] VITALS: BP 88/57; PULSE 77; RESP 18; TEMP 97.6
== END 2017-05-20 18:17 | disposition home or self-care (01) ==
LOC: EC 16:25
DX: R11.2 Nausea with vomiting, unspecified (principal); R21 Rash and other nonspecific skin eruption; F43.10 Post-traumatic stress disorder, unspecified; F31.9 Bipolar disorder, unspecified; F41.9 Anxiety disorder, unspecified; Z79.899 Other long term (current) drug therapy; Z88.1 Allergy status to other antibiotic agents; Z88.5 Allergy status to narcotic agent; Z88.8 Allergy status to other drugs, medicaments and biological substances; Z91.012 Allergy to eggs; Z90.49 Acquired absence of other specified parts of digestive tract
CPT/HCPCS: 81025; 99284; 96374; J2405

== ENCOUNTER 2017-05-29 21:11 | Emergency (ER) | payer OTHER ==
[2017-05-29 21:16] VITALS: BP 94/57; PULSE 100; RESP 18; TEMP 98.8
[2017-05-29] MEDS ORDERED: KETOROLAC 60 MG/2 ML VIAL IM STA (21:24)
--- NOTE | 2017-05-29 21:27 | ED ---
Fall HPI - General Chief Complaint: Fall Stated Complaint: Fall Time Seen by Provider: 05/29/17 21:19 Source: patient, RN notes reviewed Mode of arrival: ambulatory Limitations: no limitations - History of Present Illness Initial Comments: This is a 31-year-old female presents emergency Department template right knee pain. She states that she tripped on 5 steps and landed on her right knee. Patient states that she had no head injury no LOC. Patient complains of right knee pain. Patient was seen at [facility] yesterday and had x- rays states that due to the swelling they could not see much. Patient states that she was given Mann wrap and Motrin. Patient denies any paresthesias. Patient offers no other complaints. - Related Data Home Medications Medication Instructions Recorded Confirmed Metoprolol Tartrate 25 mg PO BID 02/24/17 05/20/17 Sertraline [Zoloft] 200 mg PO DAILY 03/28/17 05/20/17 QUEtiapine [SEROquel] 50 mg PO HS 05/05/17 05/20/17 Previous Rx's Medication Instructions Recorded Ondansetron Odt [Zofran Odt] 4 mg PO Q8HR PRN #12 tab 05/20/17 Phenazopyridine HCl [Pyridium] 200 mg PO TID PRN #6 tablet 05/20/17 Allergies Allergy/AdvReac Type Severity Reaction Status Date / Time acetaminophen [From Vicodin] Allergy Unknown Verified 05/29/17 21:16 azithromycin Allergy Rash/Hives Verified 05/29/17 21:16 ciprofloxacin Allergy Unknown Verified 05/29/17 21:16 codeine Allergy Unknown Verified 05/29/17 21:16 hydrocodone [From Vicodin] Allergy Unknown Verified 05/29/17 21:16 levofloxacin [From Levaquin] Allergy Rash/Hives Verified 05/29/17 21:16 sulfamethoxazole Allergy Rash/Hives Verified 05/29/17 21:16 [From Bactrim] tramadol Allergy Rash/Hives Verified 05/29/17 21:16 trimethoprim [From Bactrim] Allergy Rash/Hives Verified 05/29/17 21:16 diphenhydramine HCl AdvReac Rapid Verified 05/29/17 21:16 [From Benadryl] Heart Rate egg AdvReac Nausea & Verified 09/06/17 21:16 Vomiting Review of Systems ROS Statement: Those systems with pertinent positive or pertinent negative responses have been documented in the HPI. ROS Other: All systems not noted in ROS Statement are negative. Past Medical History Past Medical History: Asthma, GERD/Reflux, Pneumonia Additional Past Medical History / Comment(s): history of drug addiction, kidney stones, UTI. 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 History of Any Multi-Drug Resistant Organisms: None Reported Past Surgical History: Cholecystectomy, Tubal Ligation Past Anesthesia/Blood Transfusion Reactions: No Reported Reaction Additional Past Anesthesia/Blood Transfusion Reaction / Comment(s): had blood transfusion age 16(lost a baby)-no reactin to blood Past Psychological History: ADD/ADHD, Anxiety, Bipolar, PTSD Smoking Status: Never smoker Past Alcohol Use History: None Reported Past Drug Use History: Cocaine, Heroin, Marijuana - Past Family History Father Family Medical History: Cancer Additional Family Medical History / Comment(s): Father at age 61 from lung CA Mother Family Medical History: Seizure Disorder Additional Family Medical History / Comment(s): Mother is alive at age 57 with history of bipolar/schitzophrenia Brother(s) Additional Family Medical History / Comment(s): She has one half brother that abuses cocaine and methamphetamines. She does not have any contact with him. Patient has 1 sister with no major medical problems. Patient does not have any children. General Exam Limitations: no limitations General appearance: alert, in no apparent distress Head exam: Present: atraumatic, normocephalic, normal inspection Neck exam: Present: normal inspection, full ROM. Absent: tenderness, meningismus, lymphadenopathy Respiratory exam: Present: normal lung sounds bilaterally. Absent: respiratory distress, wheezes, rales, rhonchi, stridor Cardiovascular Exam: Present: regular rate, normal rhythm, normal heart sounds. Absent: systolic murmur, diastolic murmur, rubs, gallop, clicks Extremities exam: Present: other (Right knee there is pain with flexion extension negative anterior posterior drawer test negative valgus and varus there is no pain with valgus or varus leg is neurovascularly intact no ecchymosis no sniffing of swelling noted) Skin exam: Present: warm, dry, intact, normal color. Absent: rash Course Vital Signs 05/29/17 21:13 Temperature 98.8 F Pulse Rate 100 Respiratory 18 Rate Blood Pressure 94/57 O2 Sat by Pulse 98 Oximetry Medical Decision Making - Medical Decision Making 31-year-old female presented for right knee pain. Patient has a right knee sprain Patient we placed in knee immobilizer and follow-up with orthopedics. Patient is advised to continue her ibuprofen. Patient will follow-up with orthopedics. Disposition Clinical Impression: Right knee sprain Disposition: HOME SELF-CARE Condition: Stable Instructions: Knee Sprain (ED) Additional Instructions: Please return to the Emergency Department if symptoms worsen or any other concerns. Referrals: Debbie Stone DO [Primary Care Provider] - 1-2 days Negrito Mina MD [STAFF PHYSICIAN] - 1-2 days Time of Disposition: 21:45
--- NOTE | 2017-05-29 21:54 | XR ---
EXAMINATION TYPE: XR knee complete RT DATE OF EXAM: 05/29/2017 CLINICAL HISTORY: pain TECHNIQUE: Three views of the right knee are obtained. COMPARISON: None. FINDINGS: There is no acute fracture/dislocation. The tri-compartment joint spaces appear within no rmal limits. The overlying soft tissue appears unremarkable. IMPRESSION: There is no acute fracture or dislocation.ICD 10 NO FRACTURE, INITIAL EVALUATION
== END 2017-05-29 22:07 | disposition home or self-care (01) ==
LOC: EC 21:11
DX: S83.91XD Sprain of unspecified site of right knee, subsequent encounter (principal); F43.10 Post-traumatic stress disorder, unspecified; F31.9 Bipolar disorder, unspecified; F41.9 Anxiety disorder, unspecified; Z79.899 Other long term (current) drug therapy; Z88.1 Allergy status to other antibiotic agents; Z88.5 Allergy status to narcotic agent; Z88.8 Allergy status to other drugs, medicaments and biological substances; Z91.012 Allergy to eggs; W10.9XXD Fall (on) (from) unspecified stairs and steps, subsequent encounter
CPT/HCPCS: 99283; 96372; 73562; J1885

== ENCOUNTER 2017-05-30 20:43 | Emergency (ER) | payer OTHER ==
[2017-05-30 20:49] VITALS: RESP 16
--- NOTE | 2017-05-30 20:59 | ED ---
General Adult HPI - General Chief complaint: Urogenital Stated complaint: Abd Pain/UTI Time Seen by Provider: 05/30/17 20:58 Source: patient Mode of arrival: EMS Limitations: no limitations - History of Present Illness Initial comments: Patient is a 31-year-old female who presents the emergency department for evaluation of dysuria, urinary frequency and suprapubic pain. Patient reports that 2 weeks ago she was diagnosed with a urinary tract infection she was prescribed an antibiotic which she reports started within him. She reports that taking this antibiotic caused her to have nausea and vomiting after every time she took antibiotics that she doesn't feel that she actually got much of an antibiotic in her system. She reports that since that time she's had persistent dysuria and suprapubic pain. Patient states that she has a history of urinary tract infections traveling to her kidneys she became concerned that may be happening. He denies any fevers, chills, nausea or vomiting since taking the antibiotic last week. She denies any chest pain or shortness of breath. Patient denies any vaginal discharge or concern for sexually transmitted infection. She has no history of sexually transmitted infection in the past. - Related Data Home Medications Medication Instructions Recorded Confirmed Metoprolol Tartrate 25 mg PO BID 02/24/17 05/30/17 Sertraline [Zoloft] 200 mg PO DAILY 03/28/17 05/30/17 QUEtiapine [SEROquel] 50 mg PO HS 05/05/17 05/30/17 Previous Rx's Medication Instructions Recorded Ondansetron Odt [Zofran Odt] 4 mg PO Q8HR PRN #12 tab 05/20/17 Phenazopyridine HCl [Pyridium] 200 mg PO TID PRN #6 tablet 05/20/17 Ibuprofen [Motrin] 800 mg PO Q8HR #30 tab 05/29/17 Levofloxacin [Levaquin] 750 mg PO DAILY #5 tab 05/30/17 Levofloxacin [Levaquin] 750 mg PO DAILY #5 tab 05/30/17 Phenazopyridine [Pyridium] 200 mg PO BID #6 tablet 05/30/17 Allergies Allergy/AdvReac Type Severity Reaction Status Date / Time acetaminophen [From Vicodin] Allergy Unknown Verified 05/30/17 21:28 azithromycin Allergy Rash/Hives Verified 05/30/17 21:28 ciprofloxacin Allergy Unknown Verified 05/30/17 21:28 codeine Allergy Unknown Verified 05/30/17 21:28 hydrocodone [From Vicodin] Allergy Unknown Verified 05/30/17 21:28 levofloxacin [From Levaquin] Allergy Rash/Hives Verified 05/30/17 21:28 sulfamethoxazole Allergy Rash/Hives Verified 05/30/17 21:28 [From Bactrim] tramadol Allergy Rash/Hives Verified 05/30/17 21:28 trimethoprim [From Bactrim] Allergy Rash/Hives Verified 05/30/17 21:28 diphenhydramine HCl AdvReac Rapid Verified 05/30/17 21:28 [From Benadryl] Heart Rate egg AdvReac Nausea & Verified 05/30/17 21:28 Vomiting Review of Systems ROS Statement: Those systems with pertinent positive or pertinent negative responses have been documented in the HPI. ROS Other: All systems not noted in ROS Statement are negative. Constitutional: Reports: chills. Denies: fever Respiratory: Denies: cough, dyspnea Cardiovascular: Denies: chest pain, palpitations Endocrine: Denies: fatigue Gastrointestinal: Reports: abdominal pain, nausea (last week), vomiting (last week) Genitourinary: Reports: urgency, dysuria, frequency, hematuria. Denies: discharge, abnormal menses Musculoskeletal: Reports: back pain (bilateral flank pain) Skin: Denies: rash, lesions Hematological/Lymphatic: Denies: easy bleeding, easy bruising Past Medical History Past Medical History: Asthma, GERD/Reflux, Pneumonia Additional Past Medical History / Comment(s): history of drug addiction, kidney stones, UTI. 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 History of Any Multi-Drug Resistant Organisms: None Reported Past Surgical History: Cholecystectomy, Tubal Ligation Past Anesthesia/Blood Transfusion Reactions: No Reported Reaction Additional Past Anesthesia/Blood Transfusion Reaction / Comment(s): had blood transfusion age 16(lost a baby)-no reactin to blood Past Psychological History: ADD/ADHD, Anxiety, Bipolar, PTSD Smoking Status: Never smoker Past Alcohol Use History: None Reported Past Drug Use History: Cocaine, Heroin, Marijuana - Past Family History Father Family Medical History: Cancer Additional Family Medical History / Comment(s): Father at age 61 from lung CA Mother Family Medical History: Seizure Disorder Additional Family Medical History / Comment(s): Mother is alive at age 57 with history of bipolar/schitzophrenia Brother(s) Additional Family Medical History / Comment(s): She has one half brother that abuses cocaine and methamphetamines. She does not have any contact with him. Patient has 1 sister with no major medical problems. Patient does not have any children. General Exam Limitations: no limitations General appearance: alert, in no apparent distress Head exam: Present: atraumatic, normocephalic, normal inspection Eye exam: Present: normal appearance, PERRL, EOMI. Absent: scleral icterus, conjunctival injection, periorbital swelling ENT exam: Present: normal exam, mucous membranes moist Neck exam: Present: normal inspection. Absent: tenderness, meningismus, lymphadenopathy Respiratory exam: Present: normal lung sounds bilaterally. Absent: respiratory distress, wheezes, rales, rhonchi, stridor Cardiovascular Exam: Present: regular rate, normal rhythm, normal heart sounds. Absent: systolic murmur, diastolic murmur, rubs, gallop, clicks GI/Abdominal exam: Present: soft, normal bowel sounds. Absent: distended, tenderness, guarding, rebound, rigid Extremities exam: Present: normal inspection, full ROM, normal capillary refill. Absent: tenderness, pedal edema, joint swelling, calf tenderness Back exam: Present: normal inspection Neurological exam: Present: alert, oriented X3, CN II-XII intact Psychiatric exam: Present: agitated Skin exam: Present: warm, dry, intact, normal color. Absent: rash Course Vital Signs 05/30/17 05/30/17 20:46 22:53 Temperature 98.5 F 97.9 F Pulse Rate 62 64 Respiratory 16 16 Rate Blood Pressure 103/62 102/59 O2 Sat by Pulse 98 100 Oximetry Medical Decision Making - Medical Decision Making Patient was seen and evaluated, vital signs were reviewed, no SIRS criteria History was obtained from the patient History and physical exam concerning for urinary tract infection however considering the history of prolonged urinary tract infection and history of pyelonephritis I will obtain labs Urinalysis grossly contaminated but with evidence of urinary tract infection Review of previous urine culture is revealed that they have always been grossly contaminated with no specific isolated Will treat with 1 g of Rocephin IV Patient tolerated IV Rocephin without development of any hives or evidence of ALLERGIC reaction Labs were discussed with the patient Patient requesting to be discharged home on Levaquin as she has tolerated by mouth Levaquin in the past. She states that her ALLERGY has only been to the IV form. Discussed with the patient the risk of tendinopathy and when taking Levaquin she states that she is tolerated in the past and will accept that risk given the eighth is treated her urinary tract infections effectively. Patient also requested prescription for Pyridium as this helps with symptoms of urinary tract infection. Prescriptions were written. All questions pertaining to care were answered to the best of my ability the patient was discharged home in stable condition. Patient was advised she needs to follow up with her primary care physician by the end of the week for repeat urinalysis to ensure adequate treatment of her urinary tract infection. - Lab Data Result diagrams: 05/30/17 21:45 05/30/17 21:45 Lab Results 05/30/17 05/30/17 05/30/17 Range/Units 21:04 21:04 21:45 WBC (3.8-10.6) k/uL RBC (3.80-5.40) m/uL Hgb (11.4-16.0) gm/dL Hct (34.0-46.0) % MCV (80.0-100.0) fL MCH (25.0-35.0) pg MCHC (31.0-37.0) g/dL RDW (11.5-15.5) % Plt Count (150-450) k/uL Neutrophils % % Lymphocytes % % Monocytes % % Eosinophils % % Basophils % % Neutrophils # (1.3-7.7) k/uL Lymphocytes # (1.0-4.8) k/uL Monocytes # (0-1.0) k/uL Eosinophils # (0-0.7) k/uL Basophils # (0-0.2) k/uL Sodium 139 (137-145) mmol/L Potassium 4.3 (3.5-5.1) mmol/L Chloride 110 H (98-107) mmol/L Carbon Dioxide 23 (22-30) mmol/L Anion Gap 6 mmol/L BUN 16 (7-17) mg/dL Creatinine 0.75 (0.52-1.04) mg/dL Est GFR (MDRD) Af Amer >60 (>60 ml/min/1.73 sqM) Est GFR (MDRD) Non-Af >60 (>60 ml/min/1.73 sqM) Glucose 74 (74-99) mg/dL Calcium 8.8 (8.4-10.2) mg/dL Urine Color Dark Yellow Urine Appearance Turbid H (Clear) Urine pH 6.5 (5.0-8.0) Ur Specific [place] 1.031 (1.001-1.035) Urine Protein 1+ H (Negative) Urine Glucose (UA) Negative (Negative) Urine Ketones Trace H (Negative) Urine Blood Moderate H (Negative) Urine Nitrite Positive H (Negative) Urine Bilirubin 1+ H (Negative) Urine Urobilinogen 3.0 (<2.0) mg/dL Ur Leukocyte Esterase Large H (Negative) Urine RBC 36 H (0-5) /hpf Urine WBC >182 H (0-5) /hpf Urine WBC Clumps Many H (None) /hpf Ur Squamous Epith Cells 20 H (0-4) /hpf Calcium Oxalate Crystal Occasional H (None) /hpf Urine Bacteria Moderate H (None) /hpf Urine Mucus Moderate H (None) /hpf Urine Yeast (Budding) Occasional H (None) /hpf Urine HCG, Qual Not Detected (Not Detectd) 05/30/17 Range/Units 21:45 WBC 8.5 (3.8-10.6) k/uL RBC 4.25 (3.80-5.40) m/uL Hgb 13.6 (11.4-16.0) gm/dL Hct 41.3 (34.0-46.0) % MCV 97.1 (80.0-100.0) fL MCH 32.1 (25.0-35.0) pg MCHC 33.0 (31.0-37.0) g/dL RDW 13.8 (11.5-15.5) % Plt Count 281 (150-450) k/uL Neutrophils % 55 % Lymphocytes % 30 % Monocytes % 9 % Eosinophils % 2 % Basophils % 1 % Neutrophils # 4.7 (1.3-7.7) k/uL Lymphocytes # 2.6 (1.0-4.8) k/uL Monocytes # 0.7 (0-1.0) k/uL Eosinophils # 0.2 (0-0.7) k/uL Basophils # 0.1 (0-0.2) k/uL Sodium (137-145) mmol/L Potassium (3.5-5.1) mmol/L Chloride (98-107) mmol/L Carbon Dioxide (22-30) mmol/L Anion Gap mmol/L BUN (7-17) mg/dL Creatinine (0.52-1.04) mg/dL Est GFR (MDRD) Af Amer (>60 ml/min/1.73 sqM) Est GFR (MDRD) Non-Af (>60 ml/min/1.73 sqM) Glucose (74-99) mg/dL Calcium (8.4-10.2) mg/dL Urine Color Urine Appearance (Clear) Urine pH (5.0-8.0) Ur Specific [place] (1.001-1.035) Urine Protein (Negative) Urine Glucose (UA) (Negative) Urine Ketones (Negative) Urine Blood (Negative) Urine Nitrite (Negative) Urine Bilirubin (Negative) Urine Urobilinogen (<2.0) mg/dL Ur Leukocyte Esterase (Negative) Urine RBC (0-5) /hpf Urine WBC (0-5) /hpf Urine WBC Clumps (None) /hpf Ur Squamous Epith Cells (0-4) /hpf Calcium Oxalate Crystal (None) /hpf Urine Bacteria (None) /hpf Urine Mucus (None) /hpf Urine Yeast (Budding) (None) /hpf Urine HCG, Qual (Not Detectd) Disposition Clinical Impression: Urinary tract infection Disposition: HOME SELF-CARE Condition: Good Instructions: Urinary Tract Infection in Women (ED) Prescriptions: Levofloxacin [Levaquin] 750 mg PO DAILY #5 tab Levofloxacin [Levaquin] 750 mg PO DAILY #5 tab Phenazopyridine [Pyridium] 200 mg PO BID #6 tablet Referrals: Debbie Stone DO [Primary Care Provider] - 1-2 days Time of Disposition: 22:29
[2017-05-30 21:19] LABS: Appearance,Urine Turbid (Clear); Bacteria,Urine Moderate /hpf; Bilirubin,Urine 1+ (Negative); Calcium Oxalate Crystals,Urine Occasional /hpf; Glucose,Urine (UA) Negative (Negative); Ketones,Urine Trace (Negative); Leukocyte Esterase,Urine Large (Negative); Mucus,Urine Moderate /hpf; Nitrite,Urine Positive (Negative); PH, Urine 6.5 (5.0-8.0); Particle Count 62127; Protein,Urine 1+ (Negative); RBC,Urine 36 /hpf (0-5); Specific Gravity,Urine 1.031 (1.001-1.035); Squamous Epithelial Cell,Urine 20 /hpf (0-4); UA Billing (MACRO vs. MICRO) MICRO; WBC,Urine >182 /hpf (0-5)
[2017-05-30] MEDS ORDERED: SODIUM CHLORIDE 0.9% 1,000 ML IV ONE (21:33)
[2017-05-30 21:57] LABS: Basophils # (A) 0.1 k/uL (0-0.2); Basophils % (A) 1 %; CH 32.8; Eosinophils # (A) 0.2 k/uL (0-0.7); Eosinophils % (A) 2 %; HCT 41.3 % (34.0-46.0); HDW 2.63; HGB 13.6 gm/dL (11.4-16.0); Luc # (Auto) 0.25; Luc % (Auto) 3; Lymphocytes # (A) 2.6 k/uL (1.0-4.8); Lymphocytes % (A) 30 %; MCH 32.1 pg (25.0-35.0); MCV 97.1 fL (80.0-100.0); Monocytes # (A) 0.7 k/uL (0-1.0); Monocytes % (A) 9 %; Neutrophils # (A) 4.7 k/uL (1.3-7.7); Neutrophils % (A) 55 %; RBC 4.25 m/uL (3.80-5.40); RDW 13.8 % (11.5-15.5); WBC 8.5 k/uL (3.8-10.6); WBC (Perox) 8.58
[2017-05-30 22:06] LABS: Anion Gap 6 mmol/L; Blood Urea Nitrogen 16 mg/dL (7-17); Calcium 8.8 mg/dL (8.4-10.2); Carbon Dioxide 23 mmol/L (22-30); Chloride 110 mmol/L (98-107); Glucose 74 mg/dL (74-99); Non-African American GFR(MDRD) >60 (>60 ml/min/1.73 sqM); Potassium 4.3 mmol/L (3.5-5.1); Sodium 139 mmol/L (137-145)
[2017-05-30 22:54] VITALS: BP 102/59; PULSE 64; TEMP 97.9
== END 2017-05-30 22:53 | disposition home or self-care (01) ==
LOC: EC 20:43
DX: N39.0 Urinary tract infection, site not specified (principal); F90.9 Attention-deficit hyperactivity disorder, unspecified type; F43.10 Post-traumatic stress disorder, unspecified; F41.9 Anxiety disorder, unspecified; F31.9 Bipolar disorder, unspecified; Z79.1 Long term (current) use of non-steroidal anti-inflammatories (NSAID); Z90.49 Acquired absence of other specified parts of digestive tract; Z98.51 Tubal ligation status; Z79.899 Other long term (current) drug therapy; Z88.1 Allergy status to other antibiotic agents; Z88.2 Allergy status to sulfonamides; Z88.5 Allergy status to narcotic agent; Z88.6 Allergy status to analgesic agent; Z88.8 Allergy status to other drugs, medicaments and biological substances; Z91.012 Allergy to eggs
CPT/HCPCS: 99284; 96365; 36415; 80048; 85025; 81001; 81025; 87086; 87077; 87186; J0696

== ENCOUNTER 2017-06-01 22:43 | Emergency (ER) | payer OTHER ==
[2017-06-01 23:02] VITALS: TEMP 99.1
[2017-06-01] MEDS ORDERED: NITROGLYCERIN SL TABS 0.4 MG TAB SUBLINGUAL STA (23:18)
[2017-06-01] MEDS ORDERED: SODIUM CHLORIDE 0.9% 1,000 ML IV STA (23:18)
[2017-06-01] MEDS ORDERED: ASPIRIN 81 MG CHEW PO STA (23:18)
--- NOTE | 2017-06-01 23:27 | ED ---
General Adult HPI - General Chief complaint: Chest Pain Stated complaint: chest pain Time Seen by Provider: 06/01/17 22:53 Source: patient, EMS, RN notes reviewed Mode of arrival: EMS Limitations: no limitations - History of Present Illness Initial comments: Patient is a pleasant 31-year-old female returning to the emergency Department with chest discomfort. Patient states she has had this approximately a dozen times previously. Patient states symptoms started while watching TV about an hour and a half ago. Patient has sharp discomfort left chest. Discomfort does increase with inspiration. Patient does feel somewhat short of breath. No nausea or diaphoresis. Patient states discomfort is moderate to severe. No fever. No leg pain or leg swelling. - Related Data Home Medications Medication Instructions Recorded Confirmed Metoprolol Tartrate 25 mg PO BID 02/24/17 05/30/17 Sertraline [Zoloft] 200 mg PO DAILY 03/28/17 05/30/17 QUEtiapine [SEROquel] 50 mg PO HS 05/05/17 05/30/17 Previous Rx's Medication Instructions Recorded Ondansetron Odt [Zofran Odt] 4 mg PO Q8HR PRN #12 tab 05/20/17 Phenazopyridine HCl [Pyridium] 200 mg PO TID PRN #6 tablet 05/20/17 Ibuprofen [Motrin] 800 mg PO Q8HR #30 tab 05/29/17 Levofloxacin [Levaquin] 750 mg PO DAILY #5 tab 05/30/17 Levofloxacin [Levaquin] 750 mg PO DAILY #5 tab 05/30/17 Phenazopyridine [Pyridium] 200 mg PO BID #6 tablet 05/30/17 Allergies Allergy/AdvReac Type Severity Reaction Status Date / Time acetaminophen [From Vicodin] Allergy Unknown Verified 05/30/17 21:28 azithromycin Allergy Rash/Hives Verified 05/30/17 21:28 ciprofloxacin Allergy Unknown Verified 05/30/17 21:28 codeine Allergy Unknown Verified 05/30/17 21:28 hydrocodone [From Vicodin] Allergy Unknown Verified 05/30/17 21:28 levofloxacin [From Levaquin] Allergy Rash/Hives Verified 05/30/17 21:28 sulfamethoxazole Allergy Rash/Hives Verified 05/30/17 21:28 [From Bactrim] tramadol Allergy Rash/Hives Verified 05/30/17 21:28 trimethoprim [From Bactrim] Allergy Rash/Hives Verified 05/30/17 21:28 diphenhydramine HCl AdvReac Rapid Verified 05/30/17 21:28 [From Benadryl] Heart Rate egg AdvReac Nausea & Verified 05/30/17 21:28 Vomiting Review of Systems ROS Statement: Those systems with pertinent positive or pertinent negative responses have been documented in the HPI. ROS Other: All systems not noted in ROS Statement are negative. Constitutional: Denies: fever Eyes: Denies: eye pain ENT: Denies: ear pain Respiratory: Reports: dyspnea. Denies: cough Cardiovascular: Reports: chest pain Endocrine: Denies: fatigue Gastrointestinal: Denies: abdominal pain Genitourinary: Denies: dysuria Musculoskeletal: Denies: back pain Skin: Denies: lesions Neurological: Denies: weakness Past Medical History Past Medical History: Asthma, GERD/Reflux, Pneumonia Additional Past Medical History / Comment(s): history of drug addiction, kidney stones, UTI. 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 History of Any Multi-Drug Resistant Organisms: None Reported Past Surgical History: Cholecystectomy, Tubal Ligation Past Anesthesia/Blood Transfusion Reactions: No Reported Reaction Additional Past Anesthesia/Blood Transfusion Reaction / Comment(s): had blood transfusion age 16(lost a baby)-no reactin to blood Past Psychological History: ADD/ADHD, Anxiety, Bipolar, PTSD Smoking Status: Never smoker Past Alcohol Use History: None Reported Past Drug Use History: Cocaine, Heroin, Marijuana - Past Family History Father Family Medical History: Cancer Additional Family Medical History / Comment(s): Father at age 61 from lung CA Mother Family Medical History: Seizure Disorder Additional Family Medical History / Comment(s): Mother is alive at age 57 with history of bipolar/schitzophrenia Brother(s) Additional Family Medical History / Comment(s): She has one half brother that abuses cocaine and methamphetamines. She does not have any contact with him. Patient has 1 sister with no major medical problems. Patient does not have any children. General Exam Limitations: no limitations General appearance: alert, in no apparent distress Head exam: Present: atraumatic Eye exam: Present: normal appearance, PERRL ENT exam: Present: normal oropharynx Neck exam: Present: normal inspection Respiratory exam: Present: normal lung sounds bilaterally, chest wall tenderness Cardiovascular Exam: Present: regular rate, normal rhythm Expanded Peripheral pulses: 2+: Radial (R), Radial (L), Dorsalis Pedis (R), Dorsalis Pedis (L) GI/Abdominal exam: Present: soft. Absent: tenderness Extremities exam: Present: normal inspection. Absent: pedal edema, calf tenderness Neurological exam: Present: alert Psychiatric exam: Present: normal affect, normal mood Skin exam: Present: normal color Course Vital Signs 06/01/17 06/01/17 22:58 23:48 Temperature 99.1 F Pulse Rate 113 H 107 H Respiratory 18 18 Rate Blood Pressure 98/70 97/63 O2 Sat by Pulse 95 99 Oximetry - Reevaluation(s) Reevaluation #1: 06/01/17 23:27 Previous EKG reviewed EKG Findings - EKG Comments: EKG Findings:: Sinus tachycardia 108. VT 138. QRS 90. QT 340. QTc 455. Left axis. Poor R-wave progression. Inferior Q wave. No acute ST change. Medical Decision Making - Medical Decision Making Patient reevaluated and resting comfortably in bed in no distress. Patient states nitroglycerin did not help improve her symptoms. Patient states she has had symptoms similar to this approximately a dozen times. Patient has had 6 previous hospital visits this year. Prior charts reviewed. Patient has had a stress test done less than one year ago. Patient has atypical symptoms. Case was discussed in detail with Dr. Celestin who felt the patient does have atypical symptoms she can be discharged and follow-up with Dr. Le in the office. Patient was updated on results and need for follow-up. - Lab Data Result diagrams: 06/01/17 22:50 06/01/17 22:50 Lab Results 06/01/17 06/01/17 06/01/17 Range/Units 22:50 22:50 22:50 WBC 8.9 (3.8-10.6) k/uL RBC 4.20 (3.80-5.40) m/uL Hgb 13.4 (11.4-16.0) gm/dL Hct 40.0 (34.0-46.0) % MCV 95.2 (80.0-100.0) fL MCH 32.0 (25.0-35.0) pg MCHC 33.6 (31.0-37.0) g/dL RDW 14.1 (11.5-15.5) % Plt Count 248 (150-450) k/uL Neutrophils % 57 % Lymphocytes % 28 % Monocytes % 9 % Eosinophils % 2 % Basophils % 1 % Neutrophils # 5.1 (1.3-7.7) k/uL Lymphocytes # 2.5 (1.0-4.8) k/uL Monocytes # 0.8 (0-1.0) k/uL Eosinophils # 0.2 (0-0.7) k/uL Basophils # 0.1 (0-0.2) k/uL PT (9.0-12.0) sec INR (<1.2) APTT (22.0-30.0) sec D-Dimer (<0.60) mg/L FEU Sodium 137 (137-145) mmol/L Potassium 4.6 (3.5-5.1) mmol/L Chloride 109 H (98-107) mmol/L Carbon Dioxide 19 L (22-30) mmol/L Anion Gap 9 mmol/L BUN 13 (7-17) mg/dL Creatinine 0.70 (0.52-1.04) mg/dL Est GFR (MDRD) Af Amer >60 (>60 ml/min/1.73 sqM) Est GFR (MDRD) Non-Af >60 (>60 ml/min/1.73 sqM) Glucose 97 (74-99) mg/dL Calcium 9.0 (8.4-10.2) mg/dL Magnesium 1.7 (1.6-2.3) mg/dL Total Bilirubin 0.4 (0.2-1.3) mg/dL AST 23 (14-36) U/L ALT 32 (9-52) U/L Alkaline Phosphatase 67 (38-126) U/L Total Creatine Kinase 85 (30-135) U/L CK-MB (CK-2) 0.5 (0.0-2.4) ng/mL CK-MB (CK-2) Rel Index 0.6 Troponin I <0.012 (0.000-0.034) ng/mL Total Protein 6.7 (6.3-8.2) g/dL Albumin 3.4 L (3.5-5.0) g/dL Urine Color Urine Appearance (Clear) Urine pH (5.0-8.0) Ur Specific Slater (1.001-1.035) Urine Protein (Negative) Urine Glucose (UA) (Negative) Urine Ketones (Negative) Urine Blood (Negative) Urine Nitrite (Negative) Urine Bilirubin (Negative) Urine Urobilinogen (<2.0) mg/dL Ur Leukocyte Esterase (Negative) Urine RBC (0-5) /hpf Urine WBC (0-5) /hpf Ur Squamous Epith Cells (0-4) /hpf Urine Bacteria (None) /hpf Urine Mucus (None) /hpf Urine Sperm (None) /hpf Urine Opiates Screen (NotDetected) Ur Oxycodone Screen (NotDetected) Urine Methadone Screen (NotDetected) Ur Propoxyphene Screen (NotDetected) Ur Barbiturates Screen (NotDetected) U Tricyclic Antidepress (NotDetected) Ur Phencyclidine Scrn (NotDetected) Ur Amphetamines Screen (NotDetected) U Methamphetamines Scrn (NotDetected) U Benzodiazepines Scrn (NotDetected) Urine Cocaine Screen (NotDetected) U Marijuana (THC) Screen (NotDetected) 06/01/17 06/01/17 Range/Units 22:50 23:42 WBC (3.8-10.6) k/uL RBC (3.80-5.40) m/uL Hgb (11.4-16.0) gm/dL Hct (34.0-46.0) % MCV (80.0-100.0) fL MCH (25.0-35.0) pg MCHC (31.0-37.0) g/dL RDW (11.5-15.5) % Plt Count (150-450) k/uL Neutrophils % % Lymphocytes % % Monocytes % % Eosinophils % % Basophils % % Neutrophils # (1.3-7.7) k/uL Lymphocytes # (1.0-4.8) k/uL Monocytes # (0-1.0) k/uL Eosinophils # (0-0.7) k/uL Basophils # (0-0.2) k/uL PT 11.2 (9.0-12.0) sec INR 1.1 (<1.2) APTT 23.1 (22.0-30.0) sec D-Dimer 0.53 (<0.60) mg/L FEU Sodium (137-145) mmol/L Potassium (3.5-5.1) mmol/L Chloride (98-107) mmol/L Carbon Dioxide (22-30) mmol/L Anion Gap mmol/L BUN (7-17) mg/dL Creatinine (0.52-1.04) mg/dL Est GFR (MDRD) Af Amer (>60 ml/min/1.73 sqM) Est GFR (MDRD) Non-Af (>60 ml/min/1.73 sqM) Glucose (74-99) mg/dL Calcium (8.4-10.2) mg/dL Magnesium (1.6-2.3) mg/dL Total Bilirubin (0.2-1.3) mg/dL AST (14-36) U/L ALT (9-52) U/L Alkaline Phosphatase (38-126) U/L Total Creatine Kinase (30-135) U/L CK-MB (CK-2) (0.0-2.4) ng/mL CK-MB (CK-2) Rel Index Troponin I (0.000-0.034) ng/mL Total Protein (6.3-8.2) g/dL Albumin (3.5-5.0) g/dL Urine Color Dark Yellow Urine Appearance Cloudy H (Clear) Urine pH 6.5 (5.0-8.0) Ur Specific Slater 1.015 (1.001-1.035) Urine Protein Negative (Negative) Urine Glucose (UA) Negative (Negative) Urine Ketones Negative (Negative) Urine Blood Negative (Negative) Urine Nitrite Positive H (Negative) Urine Bilirubin Negative (Negative) Urine Urobilinogen 2.0 (<2.0) mg/dL Ur Leukocyte Esterase Negative (Negative) Urine RBC <1 (0-5) /hpf Urine WBC 4 (0-5) /hpf Ur Squamous Epith Cells 6 H (0-4) /hpf Urine Bacteria Rare H (None) /hpf Urine Mucus Rare H (None) /hpf Urine Sperm Few H (None) /hpf Urine Opiates Screen Detected H (NotDetected) Ur Oxycodone Screen Not Detected (NotDetected) Urine Methadone Screen Not Detected (NotDetected) Ur Propoxyphene Screen Not Detected (NotDetected) Ur Barbiturates Screen Not Detected (NotDetected) U Tricyclic Antidepress Not Detected (NotDetected) Ur Phencyclidine Scrn Not Detected (NotDetected) Ur Amphetamines Screen Not Detected (NotDetected) U Methamphetamines Scrn Not Detected (NotDetected) U Benzodiazepines Scrn Not Detected (NotDetected) Urine Cocaine Screen Not Detected (NotDetected) U Marijuana (THC) Screen Not Detected (NotDetected) - Radiology Data Radiology results: image reviewed (Chest x-ray shows no acute process) Disposition Clinical Impression: Chest pain Disposition: HOME SELF-CARE Condition: Stable Instructions: Chest Pain (ED) Additional Instructions: Please follow-up with your dials inspector and primary care physician on Saturday. Return for increased pain or difficulty breathing, worsening or change in symptoms or other concerns. Referrals: Debbie Stone DO [Primary Care Provider] - 1-2 days Jose Raul Le MD [STAFF PHYSICIAN] - 1-2 days Time of Disposition: 01:56
[2017-06-01 23:40] LABS: Basophils # (A) 0.1 k/uL (0-0.2); Basophils % (A) 1 %; CH 32.2; Eosinophils # (A) 0.2 k/uL (0-0.7); Eosinophils % (A) 2 %; HDW 2.58; HGB 13.4 gm/dL (11.4-16.0); Luc # (Auto) 0.23; Luc % (Auto) 3; Lymphocytes # (A) 2.5 k/uL (1.0-4.8); Lymphocytes % (A) 28 %; MCHC 33.6 g/dL (31.0-37.0); MCV 95.2 fL (80.0-100.0); Mean Platelet Volume 7.5; Monocytes # (A) 0.8 k/uL (0-1.0); Monocytes % (A) 9 %; Neutrophils # (A) 5.1 k/uL (1.3-7.7); Neutrophils % (A) 57 %; RDW 14.1 % (11.5-15.5); WBC 8.9 k/uL (3.8-10.6)
--- NOTE | 2017-06-01 23:43 | XR ---
EXAM: XR Chest, 2 Views CLINICAL HISTORY: Reason: Chest Pain TECHNIQUE: Frontal and lateral views of the chest. COMPARISON: 05/07/17 FINDINGS: Lungs: Unremarkable. No consolidation. Pleural space: Unremarkable. No pneumothorax. Heart: Unremarkable. No cardiomegaly. Mediastinum: Unremarkable. Bones/joints: Unremarkable. IMPRESSION: Normal chest x-rays.
[2017-06-01 23:47] LABS: ALT 32 U/L (9-52); AST 23 U/L (14-36); Alkaline Phosphatase 67 U/L (38-126); Anion Gap 9 mmol/L; Blood Urea Nitrogen 13 mg/dL (7-17); Carbon Dioxide 19 mmol/L (22-30); Chloride 109 mmol/L (98-107); Glucose 97 mg/dL (74-99); Magnesium 1.7 mg/dL (1.6-2.3); Non-African American GFR(MDRD) >60 (>60 ml/min/1.73 sqM); Potassium 4.6 mmol/L (3.5-5.1); Sodium 137 mmol/L (137-145); Total Bilirubin 0.4 mg/dL (0.2-1.3); Total Protein 6.7 g/dL (6.3-8.2)
[2017-06-01 23:49] LABS: Partial Thromboplastin Time 23.1 sec (22.0-30.0)
[2017-06-01 23:52] LABS: INR 1.1 (<1.2); Prothrombin Time 11.2 sec (9.0-12.0)
[2017-06-01 23:57] LABS: Creatine Kinase 85 U/L (30-135)
[2017-06-02 00:11] LABS: Creatine Kinase MB 0.5 ng/mL (0.0-2.4); Troponin I <0.012 ng/mL (0.000-0.034)
[2017-06-02 00:14] LABS: Appearance,Urine Cloudy (Clear); Bacteria,Urine Rare /hpf; Bilirubin,Urine Negative (Negative); Glucose,Urine (UA) Negative (Negative); Ketones,Urine Negative (Negative); Leukocyte Esterase,Urine Negative (Negative); Mucus,Urine Rare /hpf; Nitrite,Urine Positive (Negative); PH, Urine 6.5 (5.0-8.0); Particle Count 2435; Protein,Urine Negative (Negative); RBC,Urine <1 /hpf (0-5); Specific Gravity,Urine 1.015 (1.001-1.035); Sperm,Urine Few /hpf; Squamous Epithelial Cell,Urine 6 /hpf (0-4); UA Billing (MACRO vs. MICRO) MICRO; WBC,Urine 4 /hpf (0-5)
[2017-06-02] MEDS ORDERED: KETOROLAC 30 MG/ML 1 ML VIAL IVP STA (01:10)
[2017-06-02 02:24] VITALS: BP 103/76; PULSE 71; RESP 16
== END 2017-06-02 02:35 | disposition home or self-care (01) ==
LOC: EC 22:43
DX: R07.9 Chest pain, unspecified (principal); R06.00 Dyspnea, unspecified; R00.0 Tachycardia, unspecified; F31.9 Bipolar disorder, unspecified; F43.10 Post-traumatic stress disorder, unspecified; Z88.1 Allergy status to other antibiotic agents; Z88.5 Allergy status to narcotic agent; Z88.8 Allergy status to other drugs, medicaments and biological substances; Z91.012 Allergy to eggs; Z79.899 Other long term (current) drug therapy
CPT/HCPCS: 99285; 96374; 96361 ×2; 36415; 93005; 85379; 80053; 82550; 82553; 83735; 84484; 85025; 85610; 85730; 81001; 80306; 71020; J1885

== ENCOUNTER 2017-06-04 22:32 | Emergency (ER) | payer OTHER ==
[2017-06-04 22:40] VITALS: RESP 18; TEMP 98.4
[2017-06-04] MEDS ORDERED: NAPROXEN 250 MG TAB PO STA (23:00)
--- NOTE | 2017-06-04 23:36 | XR ---
EXAM: XR Lumbar Spine, 2 or 3 Views CLINICAL HISTORY: Reason: fall TECHNIQUE: Frontal and lateral views of the lumbar spine. COMPARISON: No relevant prior studies available. FINDINGS: Vertebrae: Minimal lumbar levocurvature, apex at L3. No acute fracture. Disc spaces: Mild disc degeneration. Soft tissues: Cholecystectomy clips. IMPRESSION: No acute fracture.
--- NOTE | 2017-06-04 23:47 | ED ---
Back Pain HPI - General Chief Complaint: Back Pain/Injury Stated Complaint: back pain Time Seen by Provider: 06/04/17 22:36 Source: patient Limitations: no limitations - History of Present Illness Initial Comments: This patient is a 31-year-old woman who states that she slipped and fell on stairs, landing on her back. She indicates pain to the low lumbar area. She states that she did try a muscle relaxant but it did not relieve the pain so she presents here to be evaluated. The patient denies any other injury, including no head, neck, chest, abdomen, or extremity pains. The patient denies any weakness or numbness of the extremities. She has not had any change in bladder or bowel function. MD Complaint: back injury, fall Onset/Timin -: hour(s) Similar Symptoms Previously: Yes Place: home Radiation: none Severity: moderate Quality: sharp Consistency: constant Improves With: none Worsens With: none Context: fall Associated Symptoms: denies other symptoms Treatments Prior to Arrival: other medications (Muscle relaxant) - Related Data Home Medications Medication Instructions Recorded Confirmed Metoprolol Tartrate 25 mg PO BID 02/24/17 06/04/17 Sertraline [Zoloft] 200 mg PO DAILY 03/28/17 06/04/17 QUEtiapine [SEROquel] 50 mg PO HS 05/05/17 06/04/17 Previous Rx's Medication Instructions Recorded Ondansetron Odt [Zofran Odt] 4 mg PO Q8HR PRN #12 tab 05/20/17 Ibuprofen [Motrin] 800 mg PO Q8HR #30 tab 05/29/17 Naproxen [Naprosyn] 250 mg PO BID #14 tab 06/04/17 Allergies Allergy/AdvReac Type Severity Reaction Status Date / Time acetaminophen [From Vicodin] Allergy Unknown Verified 06/04/17 22:50 azithromycin Allergy Rash/Hives Verified 06/04/17 22:50 ciprofloxacin Allergy Unknown Verified 06/04/17 22:50 codeine Allergy Unknown Verified 06/04/17 22:50 hydrocodone [From Vicodin] Allergy Unknown Verified 06/04/17 22:50 levofloxacin [From Levaquin] Allergy Rash/Hives Verified 06/04/17 22:50 sulfamethoxazole Allergy Rash/Hives Verified 06/04/17 22:50 [From Bactrim] tramadol Allergy Rash/Hives Verified 06/04/17 22:50 trimethoprim [From Bactrim] Allergy Rash/Hives Verified 06/04/17 22:50 diphenhydramine HCl AdvReac Rapid Verified 06/04/17 22:50 [From Benadryl] Heart Rate egg AdvReac Nausea & Verified 06/04/17 22:50 Vomiting Review of Systems ROS Statement: Those systems with pertinent positive or pertinent negative responses have been documented in the HPI. ROS Other: All systems not noted in ROS Statement are negative. Constitutional: Denies: fever, chills, weakness Cardiovascular: Denies: chest pain Gastrointestinal: Denies: abdominal pain Musculoskeletal: Reports: as per HPI, back pain Neurological: Denies: weakness, numbness, paresthesias Past Medical History Past Medical History: Asthma, GERD/Reflux, Pneumonia Additional Past Medical History / Comment(s): history of drug addiction, kidney stones, UTI. 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 History of Any Multi-Drug Resistant Organisms: None Reported Past Surgical History: Cholecystectomy, Tubal Ligation Past Anesthesia/Blood Transfusion Reactions: No Reported Reaction Additional Past Anesthesia/Blood Transfusion Reaction / Comment(s): had blood transfusion age 16(lost a baby)-no reactin to blood Past Psychological History: ADD/ADHD, Anxiety, Bipolar, PTSD Smoking Status: Never smoker Past Alcohol Use History: None Reported Past Drug Use History: Cocaine, Heroin, Marijuana - Past Family History Father Family Medical History: Cancer Additional Family Medical History / Comment(s): Father at age 61 from lung CA Mother Family Medical History: Seizure Disorder Additional Family Medical History / Comment(s): Mother is alive at age 57 with history of bipolar/schitzophrenia Brother(s) Additional Family Medical History / Comment(s): She has one half brother that abuses cocaine and methamphetamines. She does not have any contact with him. Patient has 1 sister with no major medical problems. Patient does not have any children. General Exam Limitations: no limitations General appearance: alert, in no apparent distress Respiratory exam: Present: normal lung sounds bilaterally Cardiovascular Exam: Present: regular rate, normal rhythm, other (Pedal pulses are symmetric and normal in strength with normal capillary refill.) GI/Abdominal exam: Present: soft. Absent: distended, tenderness, guarding, rebound, rigid, mass, pulsatile mass, hernia Back exam: Present: normal inspection, full ROM, paraspinal tenderness, vertebral tenderness, other (Patient has tenderness all across the lumbar area of the back without point tenderness.). Absent: CVA tenderness (R), CVA tenderness (L) Neurological exam: Present: alert, reflexes normal. Absent: motor sensory deficit Skin exam: Present: warm, dry, intact, normal color. Absent: rash Course Vital Signs 06/04/17 22:37 Temperature 98.4 F Pulse Rate 90 Respiratory 18 Rate Blood Pressure 124/54 O2 Sat by Pulse 96 Oximetry Disposition Clinical Impression: History of fall, Back contusion Disposition: HOME SELF-CARE Condition: Good Instructions: Contusion in Adults (ED) Additional Instructions: Do not take with other nonsteroidal medications, including ibuprofen, aspirin, or other NSAIDs Prescriptions: Naproxen [Naprosyn] 250 mg PO BID #14 tab Referrals: Debbie Stone DO [Primary Care Provider] - 1-2 days
[2017-06-04 23:53] VITALS: BP 101/58; PULSE 87
== END 2017-06-05 00:38 | disposition home or self-care (01) ==
LOC: EC 22:32
DX: S30.0XXA Contusion of lower back and pelvis, initial encounter (principal); F31.9 Bipolar disorder, unspecified; F41.9 Anxiety disorder, unspecified; F43.10 Post-traumatic stress disorder, unspecified; Z88.1 Allergy status to other antibiotic agents; Z88.2 Allergy status to sulfonamides; Z88.5 Allergy status to narcotic agent; Z88.6 Allergy status to analgesic agent; Z88.8 Allergy status to other drugs, medicaments and biological substances; Z91.012 Allergy to eggs; Z79.899 Other long term (current) drug therapy; W10.9XXA Fall (on) (from) unspecified stairs and steps, initial encounter
CPT/HCPCS: 72100; 99283

== ENCOUNTER 2017-06-06 15:19 | Emergency (ER) | payer OTHER ==
[2017-06-06 15:30] VITALS: RESP 18
[2017-06-06] MEDS ORDERED: SODIUM CHLORIDE 0.9% 1,000 ML IV STA ×2 (15:47)
--- NOTE | 2017-06-06 15:51 | ED ---
General Adult HPI - General Chief complaint: Syncope Stated complaint: fall/hit head/passed out Time Seen by Provider: 06/06/17 15:44 Source: patient, EMS, RN notes reviewed Mode of arrival: EMS Limitations: no limitations - History of Present Illness Initial comments: 31-year-old female presents status post syncopal episode with fall. Patient did report head trauma and is complaining of headache. She denies any chest pain or shortness of breath prior to fall. She fell while she was in the shower. She is uncertain how long she was unconscious. She is complaining of low back pain which is chronic in nature. Denies dysuria. Denies hematuria. Denies fever or chills. Patient had no palpitations or chest pain prior to fall. - Related Data Home Medications Medication Instructions Recorded Confirmed Metoprolol Tartrate 12.5 mg PO BID 02/24/17 06/06/17 Sertraline [Zoloft] 200 mg PO DAILY 03/28/17 06/06/17 QUEtiapine [SEROquel] 50 mg PO HS 05/05/17 06/06/17 Ibuprofen [Motrin] 800 mg PO Q8H PRN 06/06/17 06/06/17 Pantoprazole Sodium [Protonix] 40 mg PO AC-BRKFST 06/06/17 06/06/17 Vivitrol 380 mg IM Q28D 06/06/17 06/06/17 Allergies Allergy/AdvReac Type Severity Reaction Status Date / Time azithromycin Allergy Rash/Hives Verified 06/06/17 15:53 hydrocodone Allergy Rash/Hives Verified 06/06/17 16:09 Quinolones Allergy Rash/Hives Verified 06/06/17 15:53 sulfamethoxazole Allergy Rash/Hives Verified 06/06/17 15:53 [From Bactrim] tramadol Allergy Rash/Hives Verified 06/06/17 15:53 trimethoprim [From Bactrim] Allergy Rash/Hives Verified 06/06/17 15:53 codeine AdvReac Vertigo Verified 06/06/17 15:53 diphenhydramine HCl AdvReac Rapid Verified 06/06/17 15:53 [From Benadryl] Heart Rate egg AdvReac Nausea & Verified 06/06/17 15:53 Vomiting Review of Systems ROS Statement: Those systems with pertinent positive or pertinent negative responses have been documented in the HPI. ROS Other: All systems not noted in ROS Statement are negative. Past Medical History Past Medical History: Asthma, GERD/Reflux, Pneumonia Additional Past Medical History / Comment(s): history of drug addiction, kidney stones, UTI. 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 History of Any Multi-Drug Resistant Organisms: None Reported Past Surgical History: Cholecystectomy, Tubal Ligation Past Anesthesia/Blood Transfusion Reactions: No Reported Reaction Additional Past Anesthesia/Blood Transfusion Reaction / Comment(s): had blood transfusion age 16(lost a baby)-no reactin to blood Past Psychological History: ADD/ADHD, Anxiety, Bipolar, PTSD Smoking Status: Never smoker Past Alcohol Use History: None Reported Past Drug Use History: Cocaine, Heroin, Marijuana - Past Family History Father Family Medical History: Cancer Additional Family Medical History / Comment(s): Father at age 61 from lung CA Mother Family Medical History: Seizure Disorder Additional Family Medical History / Comment(s): Mother is alive at age 57 with history of bipolar/schitzophrenia Brother(s) Additional Family Medical History / Comment(s): She has one half brother that abuses cocaine and methamphetamines. She does not have any contact with him. Patient has 1 sister with no major medical problems. Patient does not have any children. General Exam Limitations: no limitations General appearance: alert, in no apparent distress Head exam: Present: atraumatic, normocephalic Eye exam: Present: normal appearance, PERRL ENT exam: Present: normal exam, mucous membranes dry Neck exam: Present: normal inspection, tenderness, full ROM. Absent: meningismus Respiratory exam: Present: normal lung sounds bilaterally. Absent: respiratory distress, wheezes Cardiovascular Exam: Present: regular rate, normal rhythm GI/Abdominal exam: Present: soft. Absent: distended, tenderness Extremities exam: Present: normal inspection, full ROM, normal capillary refill. Absent: pedal edema Neurological exam: Present: alert, oriented X3, CN II-XII intact. Absent: motor sensory deficit Psychiatric exam: Present: normal affect, normal mood Skin exam: Present: warm, dry, intact. Absent: cyanosis, diaphoretic Course Vital Signs 06/06/17 06/06/17 15:24 16:08 Temperature 98.2 F Pulse Rate 86 75 Respiratory 18 18 Rate Blood Pressure 84/56 97/61 O2 Sat by Pulse 100 97 Oximetry - Reevaluation(s) Reevaluation #1: 06/06/17 16:24 On reevaluation, patient denies dizziness lightheadedness, no significant headache. EKG Findings - EKG Comments: EKG Findings:: EKG shows normal sinus rhythm, ventricular rate 76, NJ interval 142, QRS duration 90, QTC 436, is a left anterior fascicular block. No signs of arrhythmia Medical Decision Making - Medical Decision Making 31 yo female presents with syncopal episode while in the shower. Patient did hit her head. Complaining of mild headache. Initial blood pressure low, patient has history of low blood pressure, patient does appear somewhat dehydrated on examination. She receives IV hydration will need emergency department. Laboratory studies including CBC, and CMP are unremarkable. EKG shows no arrhythmia. Chest x-ray negative for acute disease. Examination reveals normal heart sounds, vitals improved with hydration, no focal neurological examination, examination of head is atraumatic. Urinalysis shows white read urine, large amount of RBCs, moderate bacteria, there is 167 squamous epithelial cells, uncertain of the interpretation of this urinalysis. Patient has no dysuria, no fever or chills. Hemoglobin is stable. Urine culture will be obtained, and the patient will be given outpatient neurology follow-up. Diagnosis: Dehydration, syncope - Lab Data Result diagrams: 06/06/17 15:42 06/06/17 15:42 Lab Results 06/06/17 06/06/17 06/06/17 Range/Units 14:25 15:42 15:42 WBC 7.3 (3.8-10.6) k/uL RBC 4.50 (3.80-5.40) m/uL Hgb 14.0 (11.4-16.0) gm/dL Hct 42.7 (34.0-46.0) % MCV 95.0 (80.0-100.0) fL MCH 31.1 (25.0-35.0) pg MCHC 32.7 (31.0-37.0) g/dL RDW 13.8 (11.5-15.5) % Plt Count 281 (150-450) k/uL Neutrophils % 50 % Lymphocytes % 34 % Monocytes % 10 % Eosinophils % 2 % Basophils % 1 % Neutrophils # 3.7 (1.3-7.7) k/uL Lymphocytes # 2.5 (1.0-4.8) k/uL Monocytes # 0.7 (0-1.0) k/uL Eosinophils # 0.2 (0-0.7) k/uL Basophils # 0.0 (0-0.2) k/uL PT (9.0-12.0) sec INR (<1.2) APTT (22.0-30.0) sec Sodium (137-145) mmol/L Potassium (3.5-5.1) mmol/L Chloride (98-107) mmol/L Carbon Dioxide (22-30) mmol/L Anion Gap mmol/L BUN (7-17) mg/dL Creatinine (0.52-1.04) mg/dL Est GFR (MDRD) Af Amer (>60 ml/min/1.73 sqM) Est GFR (MDRD) Non-Af (>60 ml/min/1.73 sqM) Glucose (74-99) mg/dL Calcium (8.4-10.2) mg/dL Magnesium (1.6-2.3) mg/dL Total Bilirubin (0.2-1.3) mg/dL AST (14-36) U/L ALT (9-52) U/L Alkaline Phosphatase (38-126) U/L Total Creatine Kinase 60 (30-135) U/L CK-MB (CK-2) 0.2 (0.0-2.4) ng/mL CK-MB (CK-2) Rel Index 0.3 Troponin I <0.012 (0.000-0.034) ng/mL Total Protein (6.3-8.2) g/dL Albumin (3.5-5.0) g/dL Urine HCG, Qual Not Detected (Not Detectd) 06/06/17 06/06/17 Range/Units 15:42 15:42 WBC (3.8-10.6) k/uL RBC (3.80-5.40) m/uL Hgb (11.4-16.0) gm/dL Hct (34.0-46.0) % MCV (80.0-100.0) fL MCH (25.0-35.0) pg MCHC (31.0-37.0) g/dL RDW (11.5-15.5) % Plt Count (150-450) k/uL Neutrophils % % Lymphocytes % % Monocytes % % Eosinophils % % Basophils % % Neutrophils # (1.3-7.7) k/uL Lymphocytes # (1.0-4.8) k/uL Monocytes # (0-1.0) k/uL Eosinophils # (0-0.7) k/uL Basophils # (0-0.2) k/uL PT 11.6 (9.0-12.0) sec INR 1.2 H (<1.2) APTT 24.0 (22.0-30.0) sec Sodium 138 (137-145) mmol/L Potassium 5.1 (3.5-5.1) mmol/L Chloride 108 H (98-107) mmol/L Carbon Dioxide 21 L (22-30) mmol/L Anion Gap 9 mmol/L BUN 22 H (7-17) mg/dL Creatinine 0.88 (0.52-1.04) mg/dL Est GFR (MDRD) Af Amer >60 (>60 ml/min/1.73 sqM) Est GFR (MDRD) Non-Af >60 (>60 ml/min/1.73 sqM) Glucose 77 (74-99) mg/dL Calcium 9.6 (8.4-10.2) mg/dL Magnesium 1.8 (1.6-2.3) mg/dL Total Bilirubin 0.7 (0.2-1.3) mg/dL AST 24 (14-36) U/L ALT 34 (9-52) U/L Alkaline Phosphatase 54 (38-126) U/L Total Creatine Kinase (30-135) U/L CK-MB (CK-2) (0.0-2.4) ng/mL CK-MB (CK-2) Rel Index Troponin I (0.000-0.034) ng/mL Total Protein 7.6 (6.3-8.2) g/dL Albumin 4.2 (3.5-5.0) g/dL Urine HCG, Qual (Not Detectd) Disposition Clinical Impression: Dehydration, Fainting spell, Hematuria Disposition: HOME SELF-CARE Condition: Good Instructions: Dehydration (ED), Syncope (ED), Hematuria (ED) Referrals: Debbie Stone DO [Primary Care Provider] - 1-2 days Richar Ureña MD [STAFF PHYSICIAN] - 1-2 days Time of Disposition: 16:59
[2017-06-06 16:03] LABS: Basophils % (A) 1 %; CH 32.3; CHCM 34.2; Eosinophils # (A) 0.2 k/uL (0-0.7); Eosinophils % (A) 2 %; HCT 42.7 % (34.0-46.0); HDW 2.46; Luc # (Auto) 0.23; Luc % (Auto) 3; Lymphocytes # (A) 2.5 k/uL (1.0-4.8); Lymphocytes % (A) 34 %; MCH 31.1 pg (25.0-35.0); MCHC 32.7 g/dL (31.0-37.0); Mean Platelet Volume 7.3; Monocytes # (A) 0.7 k/uL (0-1.0); Monocytes % (A) 10 %; Neutrophils # (A) 3.7 k/uL (1.3-7.7); Neutrophils % (A) 50 %; RDW 13.8 % (11.5-15.5); WBC 7.3 k/uL (3.8-10.6); WBC (Perox) 7.69
--- NOTE | 2017-06-06 16:04 | XR ---
EXAMINATION TYPE: XR chest 2V DATE OF EXAM: 06/06/2017 CLINICAL HISTORY: Shortness of breath TECHNIQUE: Frontal and lateral views of the chest are obtained. COMPARISON: 06/01/17 FINDINGS: There is no focal air space opacity, pleural effusion, or pneumothorax seen. The cardiac silhouette size is within normal limits. The osseous structures are intact. IMPRESSION: No acute cardiopulmonary process.
[2017-06-06 16:07] LABS: INR 1.2 (<1.2); Prothrombin Time 11.6 sec (9.0-12.0)
[2017-06-06 16:14] LABS: ALT 34 U/L (9-52); AST 24 U/L (14-36); Alkaline Phosphatase 54 U/L (38-126); Anion Gap 9 mmol/L; Blood Urea Nitrogen 22 mg/dL (7-17); Calcium 9.6 mg/dL (8.4-10.2); Carbon Dioxide 21 mmol/L (22-30); Chloride 108 mmol/L (98-107); Glucose 77 mg/dL (74-99); Magnesium 1.8 mg/dL (1.6-2.3); Non-African American GFR(MDRD) >60 (>60 ml/min/1.73 sqM); Potassium 5.1 mmol/L (3.5-5.1); Sodium 138 mmol/L (137-145); Total Bilirubin 0.7 mg/dL (0.2-1.3); Total Protein 7.6 g/dL (6.3-8.2)
[2017-06-06 16:29] LABS: Creatine Kinase 60 U/L (30-135)
[2017-06-06 16:40] LABS: Creatine Kinase MB 0.2 ng/mL (0.0-2.4); Troponin I <0.012 ng/mL (0.000-0.034)
[2017-06-06 16:51] LABS: Amorphous Sediment,Urine Occasional /hpf; Appearance,Urine Turbid (Clear); Bacteria,Urine Moderate /hpf; Bilirubin,Urine Negative (Negative); Glucose,Urine (UA) Negative (Negative); Ketones,Urine Negative (Negative); Leukocyte Esterase,Urine Trace (Negative); Mucus,Urine Moderate /hpf; Nitrite,Urine Negative (Negative); Particle Count 43648; Protein,Urine 2+ (Negative); RBC,Urine >182 /hpf (0-5); Specific Gravity,Urine 1.019 (1.001-1.035); Squamous Epithelial Cell,Urine 167 /hpf (0-4); UA Billing (MACRO vs. MICRO) MICRO; Urobilinogen,Urine <2.0 mg/dL (<2.0); WBC,Urine 9 /hpf (0-5)
[2017-06-06 16:55] VITALS: BP 96/50; PULSE 68
[2017-06-06 17:32] VITALS: TEMP 98.1
== END 2017-06-06 17:35 | disposition home or self-care (01) ==
LOC: EC 15:19
DX: R51 Headache (principal); E86.0 Dehydration; R31.9 Hematuria, unspecified; R55 Syncope and collapse; J45.909 Unspecified asthma, uncomplicated; K21.9 Gastro-esophageal reflux disease without esophagitis; F31.9 Bipolar disorder, unspecified; F41.9 Anxiety disorder, unspecified; F90.9 Attention-deficit hyperactivity disorder, unspecified type; Z79.899 Other long term (current) drug therapy; Z88.1 Allergy status to other antibiotic agents; Z88.2 Allergy status to sulfonamides; Z88.5 Allergy status to narcotic agent; Z88.6 Allergy status to analgesic agent; Z91.012 Allergy to eggs; Z88.8 Allergy status to other drugs, medicaments and biological substances; W18.2XXA Fall in (into) shower or empty bathtub, initial encounter
CPT/HCPCS: 36415; 71020; 80053; 81001; 81025; 82550; 82553; 83735; 84484; 85025; 85610; 85730; 87086; 93005; 96360; 99284

== ENCOUNTER 2017-06-18 22:27 | Emergency (ER) | payer OTHER ==
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
[2017-06-19 00:54] VITALS: BP 95/60; PULSE 93; RESP 16; TEMP 98.3
== END 2017-06-19 00:52 | disposition home or self-care (01) ==
LOC: EC 22:27
DX: T76.21XA Adult sexual abuse, suspected, initial encounter (principal); K21.9 Gastro-esophageal reflux disease without esophagitis; F41.9 Anxiety disorder, unspecified; F31.9 Bipolar disorder, unspecified; F43.10 Post-traumatic stress disorder, unspecified; Z53.29 Procedure and treatment not carried out because of patient's decision for other reasons; Z79.899 Other long term (current) drug therapy; Z88.1 Allergy status to other antibiotic agents; Z88.5 Allergy status to narcotic agent; Z88.2 Allergy status to sulfonamides; Z88.6 Allergy status to analgesic agent; Z91.012 Allergy to eggs; Z88.8 Allergy status to other drugs, medicaments and biological substances
CPT/HCPCS: 87491; 87591; 99284

== ENCOUNTER 2017-06-22 21:58 | Observation (INO) | payer OTHER ==
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
[2017-06-22 22:35] LABS: Basophils % (A) 0 %; CH 31.8; Eosinophils # (A) 0.2 k/uL (0-0.7); Eosinophils % (A) 2 %; HCT 40.9 % (34.0-46.0); HDW 2.32; HGB 13.4 gm/dL (11.4-16.0); Luc # (Auto) 0.28; Luc % (Auto) 3; Lymphocytes % (A) 36 %; MCH 31.8 pg (25.0-35.0); MCHC 32.8 g/dL (31.0-37.0); MCV 97.1 fL (80.0-100.0); Mean Platelet Volume 6.4; Monocytes # (A) 0.6 k/uL (0-1.0); Monocytes % (A) 7 %; Neutrophils # (A) 4.3 k/uL (1.3-7.7); Neutrophils % (A) 51 %; RBC 4.21 m/uL (3.80-5.40); RDW 12.8 % (11.5-15.5); WBC 8.4 k/uL (3.8-10.6); WBC (Perox) 8.48
[2017-06-22 22:44] LABS: ALT 31 U/L (9-52); AST 16 U/L (14-36); Alkaline Phosphatase 61 U/L (38-126); Anion Gap 13 mmol/L; Blood Urea Nitrogen 18 mg/dL (7-17); Calcium 10.2 mg/dL (8.4-10.2); Carbon Dioxide 18 mmol/L (22-30); Chloride 109 mmol/L (98-107); Glucose 94 mg/dL (74-99); Magnesium 1.6 mg/dL (1.6-2.3); Non-African American GFR(MDRD) >60 (>60 ml/min/1.73 sqM); Sodium 140 mmol/L (137-145); Total Bilirubin 0.4 mg/dL (0.2-1.3); Total Protein 6.9 g/dL (6.3-8.2)
[2017-06-22 22:54] LABS: Creatine Kinase 57 U/L (30-135)
[2017-06-22 23:07] LABS: Creatine Kinase MB 0.4 ng/mL (0.0-2.4); Troponin I <0.012 ng/mL (0.000-0.034)
[2017-06-22 23:08] LABS: INR 1.1 (<1.2); Partial Thromboplastin Time 23.5 sec (22.0-30.0); Prothrombin Time 11.4 sec (9.0-12.0)
[2017-06-22] MEDS ORDERED: SODIUM CHLORIDE 0.9% 500 ML IV STA (23:34)
[2017-06-22] MEDS ORDERED: MAGNESIUM SULFATE-D5W PMX 1 GM in DEXTROSE/WATER 1 100ML.BAG IVPB ONE (23:34)
[2017-06-22] MEDS ORDERED: KETOROLAC 30 MG/ML 1 ML VIAL IVP STA (23:40)
[2017-06-22] MEDS ORDERED: HEPARIN SODIUM,PORCINE 5,000 UNIT/ML 1 ML VIAL IV ONE (23:43)
[2017-06-22] MEDS ORDERED: NITROGLYCERIN SL TABS 0.4 MG TAB SUBLINGUAL PRN (23:43)
[2017-06-22] MEDS ORDERED: HEPARIN SODIUM,PORCINE/D5W PMX 25,000 UNIT in DEXTROSE/WATER 1 500ML.BAG IV SCH (23:45)
[2017-06-22] MEDS ORDERED: SODIUM CHLORIDE 0.9% 1,000 ML IV SCH (23:45)
[2017-06-22] MEDS ORDERED: ACETAMINOPHEN TAB 325 MG TAB PO PRN (23:49)
--- NOTE | 2017-06-23 00:06 | XR ---
EXAM: XR Chest, 2 Views CLINICAL HISTORY: Chest pain TECHNIQUE: Frontal and lateral views of the chest. COMPARISON: 06/06/2017 FINDINGS: Lungs: Bilateral pulmonary hyperinflation. No focal consolidation. Pleural space: Unremarkable. No pneumothorax. Heart: Unremarkable. No cardiomegaly. Mediastinum: Unremarkable. Bones/joints: No acute osseous abnormality. IMPRESSION: No acute cardiopulmonary process.
[2017-06-23 00:39] VITALS: BMI 23.8
[2017-06-23] MEDS: NITROGLYCERIN OINT 1 INCH/GM PACKET TOPICAL SCH ×2 (00:45→06:29)
[2017-06-23] MEDS ORDERED: QUEtiapine 50 MG TAB PO SCH ×2 (00:45→21:00)
[2017-06-23 05:49] LABS: Creatine Kinase 46 U/L (30-135)
[2017-06-23 06:02] LABS: Creatine Kinase MB 0.3 ng/mL (0.0-2.4); Troponin I <0.012 ng/mL (0.000-0.034)
[2017-06-23 06:27] LABS: Cholesterol 186 mg/dL (<200); HDL Cholesterol 48 mg/dL (40-60)
[2017-06-23] MEDS ORDERED: PANTOPRAZOLE 40 MG TABLET PO SCH (07:30)
[2017-06-23] MEDS ORDERED: ASPIRIN 325 MG TAB PO SCH (09:00)
[2017-06-23] MEDS ORDERED: METOPROLOL TARTRATE 12.5 MG TAB PO SCH (09:00)
[2017-06-23] MEDS ORDERED: SERTRALINE 100 MG TAB PO SCH (09:00)
--- NOTE | 2017-06-23 10:19 | CONS ---
CONSULTATION ATTENDING: Dr. Stone Mrs. Corona is a 32-year-old female who presented with symptoms of chest discomfort and palpitation. Day before yesterday while in the shower she felt palpitation and she had discomfort in the chest and her symptoms persisted throughout the day yesterday and came into the emergency room to be admitted. The patient had multiple admissions recently with symptoms of chest discomfort and palpitation and her workup was negative. She was found to have an episode of sinus tachycardia. She had a stress echocardiogram performed in September of this year that revealed no evidence of inducible ischemia. Her left ventricular systolic function showed a preserved ventricular size and systolic function was mild tricuspid regurgitation. The patient denies any clear PND, orthopnea, or peripheral edema. She has the palpitation. She has occasional dizziness and according to her, she had a syncopal episode while in shower few weeks ago. She has been followed by Dr. Le on a regular basis. Her coronary risk factors are negative for smoking. She is nondiabetic, nonhypertensive and no family history of diabetes. MEDICATION: Her medications at home included that Zoloft, Seroquel, Protonix, metoprolol tartrate 12.5 mg twice a day. REVIEW OF SYSTEMS: RESPIRATORY SYSTEM: She had dyspnea on exertion. No recent wheezing. No cough. GI SYSTEM: No recent GI bleed. No peptic ulcer disease. SYSTEM: No dysuria or hematuria. NERVOUS SYSTEM: She had a prior history of seizures 3 years ago. PHYSICAL EXAMINATION: She is a 32-year-old female, alert, oriented, in no apparent distress. Blood pressure running in the 80s to 100 with a heart in the 80s. HEAD: Normocephalic. EYES: Sclerae anicteric. NECK: Good upstroke. No bruits. No venous distention. LUNGS: Clear to auscultation. HEART: Regular rate and rhythm. S1, S2. No S3, no S4. No murmur, rub. ABDOMEN: Soft, nontender. Positive bowel sounds. No megaly. EXTREMITIES: No edema. Intact pulses. EKG sinus mechanism, rate of 84, left axis deviation, poor R progression. Patient had episode of sinus tachycardia. LAB DATA: Lab data revealed troponin less than 0.012. Cholesterol 186, LDL of 129, hemoglobin of 13.4, BUN and creatinine of 18.9. Her chest x-ray revealed no infiltrate. IMPRESSION: 1. Chest discomfort, atypical for ischemic heart disease. No evidence to suggest acute coronary syndrome. 2. History of palpitation with evidence of sinus tachycardia. 3. Prior history of syncope. RECOMMENDATION: From the cardiac standpoint, I will stop the heparin, increase her level of activity. The patient has a followup visit with Dr. Le next week. She should be able to be discharged home. At this point, I do not see any indication for further cardiac workup. Thank you for this consult. MMODL / IJN: [id number] /
[2017-06-23 11:01] LABS: Creatine Kinase 40 U/L (30-135)
[2017-06-23 11:14] LABS: Creatine Kinase MB 0.3 ng/mL (0.0-2.4); Troponin I <0.012 ng/mL (0.000-0.034)
[2017-06-23 12:07] VITALS: PULSE 94; RESP 16; TEMP 98.5
[2017-06-23 12:17] VITALS: BP 82/52
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
--- NOTE | 2017-06-23 12:39 | P.DS ---
Providers Date of admission: 06/22/17 23:50 Expected date of discharge: 06/23/17 Attending physician: Padmaja Kim Consults: 06/22/17 23:43 Consult Physician Urgent Consulting Provider: Jose Raul Le Consult Reason/Comments: Angina, atypical chest pain, palpitations Do you want consulting provider notified?: Yes Primary care physician: Debbie Stone [facility] Course: This is a 32-year-old female with past medical history significant for underlying major depressive disorder who presented to the emergency room with chest pain and palpitation. Patient was evaluated in the emergency room and 12 leads EKG showed sinus tachycardia with no acute ischemic changes. Initial troponin was negative. D-dimer was normal. Patient was placed in observation was seen and evaluated by cardiology. She recently had a stress echocardiogram in September of this year that was negative. She had preserved ejection fraction. He was found her pain is atypical in possibly secondary to chest wall pain. She was cleared by cardiology for discharge home. She will follow- up with her own gizzard peeler in the office next week. Patient remained chest pain-free during this observation stay. She'll be discharged home in a stable condition. Patient Condition at Discharge: Stable Plan - Discharge Summary New Discharge Prescriptions: Continue Metoprolol Tartrate 12.5 mg PO BID Sertraline [Zoloft] 200 mg PO DAILY QUEtiapine [SEROquel] 50 mg PO HS Pantoprazole Sodium [Protonix] 40 mg PO AC-BRKFST Discharge Medication List Metoprolol Tartrate 12.5 mg PO BID 02/24/17 [History] Sertraline [Zoloft] 200 mg PO DAILY 03/28/17 [History] QUEtiapine [SEROquel] 50 mg PO HS 05/05/17 [History] Pantoprazole Sodium [Protonix] 40 mg PO AC-BRKFST 06/06/17 [History] Follow up Appointment(s)/Referral(s): Jose Raul Le MD [STAFF PHYSICIAN] - 1 Week Debbie Stone DO [Primary Care Provider] - 1-2 days Activity/Diet/Wound Care/Special Instructions: keep follow up appt with Dr. Le for next week. Discharge Disposition: HOME SELF-CARE
== END 2017-06-23 12:56 | disposition home or self-care (01) ==
LOC: EC 21:58 → 3OBS 23:50
PROVIDERS: ADMIT Internal Medicine; ATTEND Internal Medicine
DX: R07.89 Other chest pain (principal); R00.0 Tachycardia, unspecified; R00.2 Palpitations; E86.0 Dehydration; K21.9 Gastro-esophageal reflux disease without esophagitis; F90.9 Attention-deficit hyperactivity disorder, unspecified type; F41.9 Anxiety disorder, unspecified; F31.9 Bipolar disorder, unspecified; F43.10 Post-traumatic stress disorder, unspecified; F60.9 Personality disorder, unspecified; F19.20 Other psychoactive substance dependence, uncomplicated; F12.90 Cannabis use, unspecified, uncomplicated; Z87.01 Personal history of pneumonia (recurrent); Z79.899 Other long term (current) drug therapy; Z88.5 Allergy status to narcotic agent; Z88.2 Allergy status to sulfonamides; Z88.8 Allergy status to other drugs, medicaments and biological substances; Z88.1 Allergy status to other antibiotic agents; Z91.012 Allergy to eggs; Z80.1 Family history of malignant neoplasm of trachea, bronchus and lung; Z82.0 Family history of epilepsy and other diseases of the nervous system; Z62.810 Personal history of physical and sexual abuse in childhood; Z91.14 Patient's other noncompliance with medication regimen; I95.9 Hypotension, unspecified; R42 Dizziness and giddiness
CPT/HCPCS: 99285; 96365 ×2; 96375 ×2; 96376 ×2; 96366; 96368; 36415; 93005; 85379; 83880; 80061; 80053; 84443; 82550 ×2; 82553 ×2; 83735; 84484 ×2; 85025; 85610; 85730 ×2; 71020; G0378 ×2; J1644 ×2; J1885; J3475

== ENCOUNTER 2017-08-12 15:25 | Emergency (ER) | payer OTHER ==
--- NOTE | 2017-08-12 16:47 | ED ---
General Adult HPI - General Chief complaint: Fever Stated complaint: SOB/fever/vomiting/diarrhea Time Seen by Provider: 08/12/17 16:39 Source: patient, RN notes reviewed Mode of arrival: ambulatory Limitations: no limitations - History of Present Illness Initial comments: Patient 32-year-old female who presents emergency room today with multiple complaints. Patient does admit to cough ingestion of a sore throat over the last week. She was bodyaches and chills. She missed to symptoms of nausea vomiting over the last week as well. Denies any signs of blood. Denies any abdominal pain. Does note feeling some pain on the right side which she is concerned about possible pneumonia. She states she's had this in the past. She denies any other complaints or associated symptoms currently. Patient denies any recent fever, chills, shortness of breath, chest pain, back pain, abdominal pain, nausea or vomiting, numbness or tingling, dysuria or hematuria, constipation or diarrhea, headaches or visual changes, or any other complaints. - Related Data Home Medications Medication Instructions Recorded Confirmed Metoprolol Tartrate 12.5 mg PO BID 02/24/17 08/12/17 Sertraline [Zoloft] 200 mg PO DAILY 03/28/17 08/12/17 QUEtiapine [SEROquel] 50 mg PO HS 05/05/17 08/12/17 Ranitidine HCl [Zantac] 150 mg PO BID 08/12/17 08/12/17 Previous Rx's Medication Instructions Recorded Ondansetron Odt [Zofran ODT] 4 mg PO Q8HR PRN #20 tab 07/20/17 Amoxicillin/Potassium Clav 1 each PO Q12HR #20 tab 08/12/17 [Augmentin 875-125 Tablet] Ondansetron Odt [Zofran ODT] 4 mg PO Q8HR PRN #20 tab 08/12/17 Allergies Allergy/AdvReac Type Severity Reaction Status Date / Time azithromycin Allergy Rash/Hives Verified 08/12/17 17:16 hydrocodone Allergy Rash/Hives Verified 08/12/17 17:16 Quinolones Allergy Rash/Hives Verified 08/12/17 17:16 sulfamethoxazole Allergy Rash/Hives Verified 08/12/17 17:16 [From Bactrim] tramadol Allergy Rash/Hives Verified 08/12/17 17:16 trimethoprim [From Bactrim] Allergy Rash/Hives Verified 08/12/17 17:16 codeine AdvReac Vertigo Verified 08/12/17 17:16 diphenhydramine HCl AdvReac Rapid Verified 08/12/17 17:16 [From Benadryl] Heart Rate egg AdvReac Nausea & Verified 08/12/17 17:16 Vomiting Review of Systems ROS Statement: Those systems with pertinent positive or pertinent negative responses have been documented in the HPI. ROS Other: All systems not noted in ROS Statement are negative. Past Medical History Past Medical History: Asthma, GERD/Reflux, Pneumonia Additional Past Medical History / Comment(s): history of drug addiction, kidney stones, UTI. 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 History of Any Multi-Drug Resistant Organisms: None Reported Past Surgical History: Cholecystectomy, Tubal Ligation Past Anesthesia/Blood Transfusion Reactions: No Reported Reaction Additional Past Anesthesia/Blood Transfusion Reaction / Comment(s): had blood transfusion age 16(lost a baby)-no reactin to blood Past Psychological History: ADD/ADHD, Anxiety, Bipolar, PTSD Smoking Status: Never smoker Past Alcohol Use History: None Reported Past Drug Use History: None Reported - Past Family History Father Family Medical History: Cancer Additional Family Medical History / Comment(s): Father at age 61 from lung CA Mother Family Medical History: Seizure Disorder Additional Family Medical History / Comment(s): Mother is alive at age 57 with history of bipolar/schitzophrenia Brother(s) Additional Family Medical History / Comment(s): She has one half brother that abuses cocaine and methamphetamines. She does not have any contact with him. Patient has 1 sister with no major medical problems. Patient does not have any children. General Exam - General Exam Comments Initial Comments: General: The patient is awake and alert, in no distress, and does not appear acutely ill. Eye: Pupils are equal, round and reactive to light, extra-ocular movements are intact. No nystagmus. There is normal conjunctiva bilaterally. No signs of icterus. Ears, nose, mouth and throat: There are moist mucous membranes and no oral lesions. Patient does have some redness and erythema to the posterior pharynx with positive exudate on the left. Uvula is midline. Neck: The neck is supple, there is no tenderness or JVD. Cardiovascular: There is a regular rate and rhythm. No murmur, rub or gallop is appreciated. Respiratory: Lungs are clear to auscultation, respirations are non-labored, breath sounds are equal. No wheezes, stridor, rales, or rhonchi. Gastrointestinal: Soft, non-distended, non-tender abdomen without masses or organomegaly noted. There is no rebound or guarding present. No CVA tenderness. Bowel sounds are unremarkable. Musculoskeletal: Normal ROM, no tenderness. Strength 5/5. Sensation intact. Pulses equal bilaterally 2+. Neurological: A&O x 3. CN II-XII intact, There are no obvious motor or sensory deficits. Coordination appears grossly intact. Speech is normal. Skin: Skin is warm and dry and no rashes or lesions are noted. Psychiatric: Cooperative, appropriate mood & affect, normal judgment. Limitations: no limitations Course Vital Signs 08/12/17 08/12/17 15:35 17:39 Temperature 98.5 F Pulse Rate 108 H 85 Respiratory 20 18 Rate Blood Pressure 102/65 103/57 O2 Sat by Pulse 98 98 Oximetry Medical Decision Making - Medical Decision Making Patient reexamined at this time shows no signs of distress. Strep test negative. Patient's chest x-rays negative for any evidence of pneumonia. Patient influenza negative. Does admit to cough congestion for the past 2 weeks. Patient's abdomen nausea vomiting here the emergency room. No abdominal pain or tenderness. Patient will be discharged home with nausea medication. Placed on antibiotics cover for bronchitis infection as she states that symptoms been over 2 weeks. Advised follow-up family doctor return here to emergency room if any symptoms increase worsen or fail concerns. - Lab Data Lab Results 08/12/17 08/12/17 08/12/17 Range/Units 16:55 16:55 16:55 Urine HCG, Qual Not Detected (Not Detectd) Influenza Type A RNA Not Detected (Not Detectd) Influenza Type B (PCR) Not Detected (Not Detectd) Group A Strep Rapid Negative (Negative) Disposition Clinical Impression: Acute bronchitis Disposition: HOME SELF-CARE Condition: Good Instructions: Acute Bronchitis (ED) Additional Instructions: Please use medication as discussed. Please follow-up with family doctor in the next 2 days of symptoms have not improved. Please return to emergency room if the symptoms increase or worsen or for any other concerns. Prescriptions: Amoxicillin/Potassium Clav [Augmentin 875-125 Tablet] 1 each PO Q12HR #20 tab Ondansetron Odt [Zofran ODT] 4 mg PO Q8HR PRN #20 tab PRN Reason: Nausea Referrals: Debbie Stone DO [Primary Care Provider] - 1-2 days Time of Disposition: 18:16
--- NOTE | 2017-08-12 17:56 | XR ---
EXAMINATION TYPE: XR chest 2V DATE OF EXAM: 08/12/2017 COMPARISON: 07/06/2017 HISTORY: Cough TECHNIQUE: Frontal and lateral views of the chest are obtained. FINDINGS: Heart and mediastinum are normal. Lungs are clear. Costophrenic angles are clear. Bony tho rax is intact. IMPRESSION: Normal chest. No change.
[2017-08-12 18:24] VITALS: BP 102/74; PULSE 99; RESP 16; TEMP 97.8
== END 2017-08-12 18:24 | disposition home or self-care (01) ==
LOC: EC 15:25
DX: J20.9 Acute bronchitis, unspecified (principal); F31.9 Bipolar disorder, unspecified; F41.9 Anxiety disorder, unspecified; F43.10 Post-traumatic stress disorder, unspecified; K21.9 Gastro-esophageal reflux disease without esophagitis; Z87.01 Personal history of pneumonia (recurrent); Z88.1 Allergy status to other antibiotic agents; Z88.5 Allergy status to narcotic agent; Z88.6 Allergy status to analgesic agent; Z88.8 Allergy status to other drugs, medicaments and biological substances; Z88.2 Allergy status to sulfonamides; Z91.012 Allergy to eggs; Z79.899 Other long term (current) drug therapy
CPT/HCPCS: 71020; 81025; 87081; 87430; 87502; 99283

== ENCOUNTER 2017-08-17 21:57 | Emergency (ER) | payer OTHER ==
[2017-08-17] MEDS ORDERED: ACETAMINOPHEN TAB 500 MG TAB PO STA (22:44)
[2017-08-17] MEDS ORDERED: KETOROLAC 30 MG/ML 1 ML VIAL IVP STA (22:44)
[2017-08-17] MEDS ORDERED: SODIUM CHLORIDE 0.9% 1,000 ML IV STA (22:44)
[2017-08-17] MEDS ORDERED: METOCLOPRAMIDE 5 MG/ML 2 ML VIAL IVP STA (22:44)
[2017-08-17] MEDS ORDERED: ORPHENADRINE 30 MG/ML 2 ML VIAL IVP STA (22:45)
[2017-08-17] MEDS ORDERED: methylPREDNISolone SOD SUCCI 125 MG/2 ML VIAL IV STA (22:45)
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
[2017-08-17 23:38] VITALS: BP 114/68; PULSE 120; RESP 18; TEMP 98.2
[2017-08-17 23:38] LABS: Basophils % (A) 1 %; CHCM 32.7; Eosinophils # (A) 0.2 k/uL (0-0.7); Eosinophils % (A) 2 %; HCT 43.3 % (34.0-46.0); HGB 14.2 gm/dL (11.4-16.0); Luc # (Auto) 0.22; Luc % (Auto) 3; Lymphocytes % (A) 42 %; MCH 31.2 pg (25.0-35.0); MCHC 32.8 g/dL (31.0-37.0); MCV 95.4 fL (80.0-100.0); Mean Platelet Volume 7.2; Monocytes # (A) 0.7 k/uL (0-1.0); Monocytes % (A) 10 %; Neutrophils % (A) 42 %; RBC 4.54 m/uL (3.80-5.40); RDW 13.7 % (11.5-15.5); WBC 7.1 k/uL (3.8-10.6); WBC (Perox) 7.04
[2017-08-17 23:56] LABS: Anion Gap 8 mmol/L; Blood Urea Nitrogen 16 mg/dL (7-17); Calcium 9.5 mg/dL (8.4-10.2); Carbon Dioxide 18 mmol/L (22-30); Chloride 112 mmol/L (98-107); Glucose 79 mg/dL (74-99); Non-African American GFR(MDRD) >60 (>60 ml/min/1.73 sqM); Sodium 138 mmol/L (137-145)
[2017-08-17 23:58] LABS: Potassium 4.5 mmol/L (3.5-5.1)
== END 2017-08-17 23:49 | disposition home or self-care (01) ==
LOC: EC 21:57
DX: G43.909 Migraine, unspecified, not intractable, without status migrainosus (principal); K21.9 Gastro-esophageal reflux disease without esophagitis; F31.9 Bipolar disorder, unspecified; F41.9 Anxiety disorder, unspecified; F43.10 Post-traumatic stress disorder, unspecified; Z79.899 Other long term (current) drug therapy; Z88.1 Allergy status to other antibiotic agents; Z88.5 Allergy status to narcotic agent; Z88.8 Allergy status to other drugs, medicaments and biological substances; Z91.012 Allergy to eggs
CPT/HCPCS: 36415; 80048; 85025; 99284; 96374; 96375 ×3; 96361; J2360; J2765; J2930; J1885

== ENCOUNTER 2017-10-14 19:47 | Emergency (ER) | payer OTHER ==
--- NOTE | 2017-10-14 20:53 | ED ---
General Adult HPI - General Chief complaint: Extremity Injury, Upper Stated complaint: Fall/ Hand Pain Time Seen by Provider: 10/14/17 20:26 Source: patient, RN notes reviewed Mode of arrival: ambulatory Limitations: no limitations - History of Present Illness Initial comments: Patient 32-year-old female who presents emergency room today with chief complaint of an injury to the right thumb that occurred earlier today. States she fell down a few steps injuring his thumb. States it's worse with certain movements. Patient denies any head injury or loss conscious. Denies any other complaints. Patient denies any recent fever, chills, shortness of breath, chest pain, back pain, abdominal pain, nausea or vomiting, numbness or tingling, headaches or visual changes, or any other complaints. - Related Data Home Medications Medication Instructions Recorded Confirmed Metoprolol Tartrate 12.5 mg PO BID 02/24/17 10/14/17 Sertraline [Zoloft] 200 mg PO HS 03/28/17 10/14/17 QUEtiapine [SEROquel] 50 mg PO HS 05/05/17 10/14/17 Ranitidine HCl [Zantac] 150 mg PO BID 08/12/17 10/14/17 Sertraline [Zoloft] 50 mg PO DAILY 10/14/17 10/14/17 Previous Rx's Medication Instructions Recorded Ondansetron Odt [Zofran ODT] 4 mg PO Q8HR PRN #20 tab 08/12/17 Ibuprofen [Motrin] 600 mg PO Q6HR PRN #30 day 10/14/17 Allergies Allergy/AdvReac Type Severity Reaction Status Date / Time azithromycin Allergy Rash/Hives Verified 10/14/17 20:14 hydrocodone Allergy Rash/Hives Verified 10/14/17 20:14 Quinolones Allergy Rash/Hives Verified 10/14/17 20:14 sulfamethoxazole Allergy Rash/Hives Verified 10/14/17 20:14 [From Bactrim] tramadol Allergy Rash/Hives Verified 10/14/17 20:14 trimethoprim [From Bactrim] Allergy Rash/Hives Verified 10/14/17 20:14 codeine AdvReac Vertigo Verified 10/14/17 20:14 diphenhydramine HCl AdvReac Rapid Verified 10/14/17 20:14 [From Benadryl] Heart Rate egg AdvReac Nausea & Verified 10/14/17 20:14 Vomiting Review of Systems ROS Statement: Those systems with pertinent positive or pertinent negative responses have been documented in the HPI. ROS Other: All systems not noted in ROS Statement are negative. Past Medical History Past Medical History: Asthma, GERD/Reflux, Pneumonia Additional Past Medical History / Comment(s): history of drug addiction, kidney stones, UTI. 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 History of Any Multi-Drug Resistant Organisms: None Reported Past Surgical History: Cholecystectomy, Tubal Ligation Past Anesthesia/Blood Transfusion Reactions: No Reported Reaction Additional Past Anesthesia/Blood Transfusion Reaction / Comment(s): had blood transfusion age 16(lost a baby)-no reactin to blood Past Psychological History: ADD/ADHD, Anxiety, Bipolar, PTSD Smoking Status: Never smoker Past Alcohol Use History: None Reported Past Drug Use History: None Reported - Past Family History Father Family Medical History: Cancer Additional Family Medical History / Comment(s): Father at age 61 from lung CA Mother Family Medical History: Seizure Disorder Additional Family Medical History / Comment(s): Mother is alive at age 57 with history of bipolar/schitzophrenia Brother(s) Additional Family Medical History / Comment(s): She has one half brother that abuses cocaine and methamphetamines. She does not have any contact with him. Patient has 1 sister with no major medical problems. Patient does not have any children. General Exam - General Exam Comments Initial Comments: General: The patient is awake and alert, in no distress, and does not appear acutely ill. Neck: The neck is supple, there is no tenderness or JVD. Cardiovascular: There is a regular rate and rhythm. No murmur, rub or gallop is appreciated. Respiratory: Lungs are clear to auscultation, respirations are non-labored, breath sounds are equal. No wheezes, stridor, rales, or rhonchi. Musculoskeletal: Normal appearance the right hand and wrist obvious deformity. Patient shows full range of motion with flexion and extension at the right thumb due to pain. Locally tender over the MCP joint. Tender in the snuffbox. No other bony tenderness on exam. Sensation intact and cap refill less than 2 seconds. Pulses in bilateral 2+. Neurological: A&O x 3. CN II-XII intact, There are no obvious motor or sensory deficits. Coordination appears grossly intact. Speech is normal. Skin: Skin is warm and dry and no rashes or lesions are noted. Psychiatric: Normal mood and affect. Limitations: no limitations Course Vital Signs 10/14/17 20:12 Temperature 98.5 F Pulse Rate 99 Respiratory 20 Rate Blood Pressure 99/67 O2 Sat by Pulse 95 Oximetry Medical Decision Making - Medical Decision Making His x-ray reviewed negative for any acute fracture or dislocation. Patient does have tender in the snuffbox area has been splinted in a thumb spica splint. Patient is advised following up with her orthopedic doctor. Says she seen Dr. Medina the past. Disposition Clinical Impression: Thumb injury Disposition: HOME SELF-CARE Condition: Good Instructions: Wrist Injury (ED) Additional Instructions: Please follow-up with orthopedics over the next 2 days. Please splint in place until follow-up appointment. Please continue to ice elevate the affected areas 4 times a day for 20 minutes at a time. Please return to emergency room for any other concerns. Prescriptions: Ibuprofen [Motrin] 600 mg PO Q6HR PRN #30 day PRN Reason: Pain Referrals: Everton Wilder MD [Primary Care Provider] - 1-2 days Tien Willis DO [Doctor of Osteopathic Medicine] - 1-2 days Time of Disposition: 20:52
[2017-10-14 21:09] VITALS: BP 142/80; PULSE 87; RESP 18; TEMP 98.4
--- NOTE | 2017-10-14 21:21 | XR ---
PROCEDURE: XR hand complete RT DATE AND TIME: 10/14/2017 8:43 PM REFERRING PHYSICIAN: Tam Batres CLINICAL INDICATION: PHH, Pain TECHNIQUE: Department protocol. COMPARISON: None FINDINGS: There is no fracture or malalignment. The soft tissues are unremarkable. IMPRESSION: NO ACUTE PROCESS.
== END 2017-10-14 21:09 | disposition home or self-care (01) ==
LOC: EC 19:47
DX: S69.91XA Unspecified injury of right wrist, hand and finger(s), initial encounter (principal); K21.9 Gastro-esophageal reflux disease without esophagitis; F31.9 Bipolar disorder, unspecified; F41.9 Anxiety disorder, unspecified; F43.10 Post-traumatic stress disorder, unspecified; Z79.899 Other long term (current) drug therapy; Z88.1 Allergy status to other antibiotic agents; Z88.5 Allergy status to narcotic agent; Z88.8 Allergy status to other drugs, medicaments and biological substances; Z91.012 Allergy to eggs; W10.9XXA Fall (on) (from) unspecified stairs and steps, initial encounter
CPT/HCPCS: 29125; 99283

== ENCOUNTER 2017-11-21 03:25 | Inpatient (IN) | payer MEDICAID, OTHER ==
--- NOTE | 2017-11-21 03:52 | ED ---
Psych HPI - General Chief Complaint: Psychiatric Symptoms Stated Complaint: Suicidal Time Seen by Provider: 11/21/17 03:27 Source: patient Mode of arrival: EMS - History of Present Illness Initial Comments: This patient is 32-year-old woman who presents to have psychiatric evaluation. She states that she recently had a friend who was murdered and that this is causing her mood to worsen and she is having persistent thoughts of suicide. She has history of previous psychiatric treatment, including depression, and states that she had stopped taking her medication some months ago. She felt that they were not helping much. MD Complaint: suicidal ideation, feels depressed -: week(s) Associated Psychiatric Symptoms: depression, suicidal ideation History of same: Yes Quality: getting worse Improves With: none Worsens With: none Context: not taking psychiatric medications, significant life stressor Associated Symptoms: denies other symptoms - Related Data Home Medications Medication Instructions Recorded Confirmed Metoprolol Tartrate 12.5 mg PO BID 02/24/17 10/14/17 Sertraline [Zoloft] 200 mg PO HS 03/28/17 10/14/17 QUEtiapine [SEROquel] 50 mg PO HS 05/05/17 10/14/17 Ranitidine HCl [Zantac] 150 mg PO BID 08/12/17 10/14/17 Sertraline [Zoloft] 50 mg PO DAILY 10/14/17 10/14/17 Previous Rx's Medication Instructions Recorded Ondansetron Odt [Zofran ODT] 4 mg PO Q8HR PRN #20 tab 08/12/17 Ibuprofen [Motrin] 600 mg PO Q6HR PRN #30 day 10/14/17 Allergies Allergy/AdvReac Type Severity Reaction Status Date / Time azithromycin Allergy Rash/Hives Verified 11/21/17 03:42 hydrocodone Allergy Rash/Hives Verified 11/21/17 03:42 Quinolones Allergy Rash/Hives Verified 11/21/17 03:42 sulfamethoxazole Allergy Rash/Hives Verified 11/21/17 03:42 [From Bactrim] tramadol Allergy Rash/Hives Verified 11/21/17 03:42 trimethoprim [From Bactrim] Allergy Rash/Hives Verified 11/21/17 03:42 codeine AdvReac Vertigo Verified 11/21/17 03:42 diphenhydramine HCl AdvReac Rapid Verified 11/21/17 03:42 [From Benadryl] Heart Rate egg AdvReac Nausea & Verified 11/21/17 03:42 Vomiting Review of Systems ROS Statement: Those systems with pertinent positive or pertinent negative responses have been documented in the HPI. ROS Other: All systems not noted in ROS Statement are negative. Constitutional: Denies: fever, chills Respiratory: Denies: cough, dyspnea Cardiovascular: Denies: chest pain, palpitations Gastrointestinal: Denies: abdominal pain, vomiting, diarrhea Genitourinary: Reports: hematuria, abnormal menses. Denies: dysuria Skin: Reports: rash Neurological: Denies: headache, weakness, numbness Past Medical History Past Medical History: Asthma, GERD/Reflux, Pneumonia Additional Past Medical History / Comment(s): history of drug addiction, kidney stones, UTI. 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 History of Any Multi-Drug Resistant Organisms: None Reported Past Surgical History: Cholecystectomy, Tubal Ligation Past Anesthesia/Blood Transfusion Reactions: No Reported Reaction Additional Past Anesthesia/Blood Transfusion Reaction / Comment(s): had blood transfusion age 16(lost a baby)-no reactin to blood Past Psychological History: ADD/ADHD, Anxiety, Bipolar, PTSD Smoking Status: Never smoker Past Alcohol Use History: None Reported Past Drug Use History: Heroin - Past Family History Father Family Medical History: Cancer Additional Family Medical History / Comment(s): Father at age 61 from lung CA Mother Family Medical History: Seizure Disorder Additional Family Medical History / Comment(s): Mother is alive at age 57 with history of bipolar/schitzophrenia Brother(s) Additional Family Medical History / Comment(s): She has one half brother that abuses cocaine and methamphetamines. She does not have any contact with him. Patient has 1 sister with no major medical problems. Patient does not have any children. General Exam Limitations: no limitations General appearance: alert, in no apparent distress, anxious Head exam: Present: atraumatic, normocephalic Neck exam: Present: normal inspection, full ROM Respiratory exam: Present: normal lung sounds bilaterally. Absent: respiratory distress, wheezes, rales, rhonchi, stridor Cardiovascular Exam: Present: regular rate, normal rhythm, normal heart sounds. Absent: systolic murmur, diastolic murmur, rubs, gallop GI/Abdominal exam: Present: soft. Absent: distended, tenderness, guarding, rebound, rigid Extremities exam: Present: normal inspection, normal capillary refill. Absent: pedal edema, calf tenderness Back exam: Present: normal inspection. Absent: CVA tenderness (R), CVA tenderness (L) Neurological exam: Present: alert Psychiatric exam: Present: depressed, anxious, suicidal ideation. Absent: agitated, flat affect, homicidal ideation Skin exam: Present: warm, dry, intact, normal color, rash (Patient has to versicolor to the trunk and neck and upper extremity) Course Vital Signs 11/21/17 03:31 Temperature 99.1 F Pulse Rate 104 H Respiratory 18 Rate Blood Pressure 109/70 O2 Sat by Pulse 97 Oximetry Medical Decision Making - Lab Data Lab Results 11/21/17 11/21/17 Range/Units 03:35 03:35 Urine Color Yellow Urine Appearance Clear (Clear) Urine pH 6.0 (5.0-8.0) Ur Specific [place] 1.028 (1.001-1.035) Urine Protein Trace H (Negative) Urine Glucose (UA) Negative (Negative) Urine Ketones Negative (Negative) Urine Blood Trace H (Negative) Urine Nitrite Negative (Negative) Urine Bilirubin Negative (Negative) Urine Urobilinogen <2.0 (<2.0) mg/dL Ur Leukocyte Esterase Negative (Negative) Urine RBC 6 H (0-5) /hpf Urine WBC 1 (0-5) /hpf Ur Squamous Epith Cells 3 (0-4) /hpf Urine Mucus Rare H (None) /hpf Urine HCG, Qual Not Detected (Not Detectd) Urine Opiates Screen Not Detected (NotDetected) Ur Oxycodone Screen Not Detected (NotDetected) Urine Methadone Screen Not Detected (NotDetected) Ur Propoxyphene Screen Not Detected (NotDetected) Ur Barbiturates Screen Not Detected (NotDetected) U Tricyclic Antidepress Detected H (NotDetected) Ur Phencyclidine Scrn Not Detected (NotDetected) Ur Amphetamines Screen Not Detected (NotDetected) U Methamphetamines Scrn Not Detected (NotDetected) U Benzodiazepines Scrn Not Detected (NotDetected) Urine Cocaine Screen Not Detected (NotDetected) U Marijuana (THC) Screen Not Detected (NotDetected) Disposition Clinical Impression: Mood disorder, Tinea versicolor Disposition: ADMITTED IP TO THIS [facility] Condition: Fair
[2017-11-21 03:56] LABS: Appearance,Urine Clear (Clear); Bilirubin,Urine Negative (Negative); Blood,Urine Trace (Negative); Color,Urine Yellow; Glucose,Urine (UA) Negative (Negative); Ketones,Urine Negative (Negative); Leukocyte Esterase,Urine Negative (Negative); Mucus,Urine Rare /hpf; Protein,Urine Trace (Negative); RBC,Urine 6 /hpf (0-5); Specific Gravity,Urine 1.028 (1.001-1.035); Squamous Epithelial Cell,Urine 3 /hpf (0-4); Urobilinogen,Urine <2.0 mg/dL (<2.0); WBC,Urine 1 /hpf (0-5)
[2017-11-21 04:05] LABS: Amphetamine Screen,Urine Not Detected (NotDetected); Barbiturate Screen,Urine Not Detected (NotDetected); Benzodiazepines Screen,Urine Not Detected (NotDetected); Cocaine Screen,Urine Not Detected (NotDetected); Methadone Screen, Urine Not Detected (NotDetected); Opiate Screen,Urine Not Detected (NotDetected); Oxycodone Screen, Urine Not Detected (NotDetected); Phencyclidine Screen,Urine Not Detected (NotDetected); Tricyclic Antidepressant,Urine Detected (NotDetected); Urn Cannabinoid Scrn Not Detected (NotDetected)
[2017-11-21] MEDS ORDERED: LORazepam 1 MG TAB PO PRN (05:34)
[2017-11-21] MEDS ORDERED: MAG HYDROX/AL HYDROX/SIMETH 30 ML CUP PO PRN (05:34)
[2017-11-21] MEDS ORDERED: MAGNESIUM HYDROXIDE 2,400 MG/10 ML CUP PO PRN (05:34)
[2017-11-21 08:12] LABS: Basophils % (A) 0 %; Eosinophils # (A) 0.2 k/uL (0-0.7); Eosinophils % (A) 2 %; HCT 40.8 % (34.0-46.0); HGB 13.6 gm/dL (11.4-16.0); Lymphocytes # (A) 2.7 k/uL (1.0-4.8); Lymphocytes % (A) 33 %; MCH 31.3 pg (25.0-35.0); MCHC 33.3 g/dL (31.0-37.0); Mean Platelet Volume 6.8; Monocytes # (A) 0.9 k/uL (0-1.0); Monocytes % (A) 11 %; Neutrophils # (A) 4.1 k/uL (1.3-7.7); Neutrophils % (A) 51 %; Platelet Count 266 k/uL (150-450); RBC 4.34 m/uL (3.80-5.40); RDW 13.3 % (11.5-15.5); WBC 8.1 k/uL (3.8-10.6)
[2017-11-21 08:50] LABS: ALT 22 U/L (9-52); AST 16 U/L (14-36); Albumin 3.7 g/dL (3.5-5.0); Alkaline Phosphatase 57 U/L (38-126); Anion Gap 10 mmol/L; Blood Urea Nitrogen 19 mg/dL (7-17); Calcium 9.3 mg/dL (8.4-10.2); Carbon Dioxide 24 mmol/L (22-30); Chloride 107 mmol/L (98-107); Cholesterol 255 mg/dL (<200); Glucose 81 mg/dL (74-99); HDL Cholesterol 61 mg/dL (40-60); LDL Cholesterol,Calculated 181 mg/dL (0-99); Potassium 4.7 mmol/L (3.5-5.1); Sodium 141 mmol/L (137-145); Total Bilirubin 0.3 mg/dL (0.2-1.3); Total Protein 7.1 g/dL (6.3-8.2); Triglycerides 64 mg/dL (<150)
[2017-11-21] MEDS: METOPROLOL TARTRATE 12.5 MG TAB PO SCH ×2 (09:07→20:41)
[2017-11-21] MEDS: ESCITALOPRAM 10 MG TAB PO SCH (09:56)
[2017-11-21] MEDS: ACETAMINOPHEN TAB 325 MG TAB PO PRN ×2 (10:59→20:40)
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
[2017-11-21 16:52] LABS: Hemoglobin A1C 4.9 % (4.0-6.0)
[2017-11-21] MEDS: ONDANSETRON ODT 4 MG TAB PO PRN (19:03)
--- NOTE | 2017-11-21 19:40 | CONS ---
CONSULTATION REASON FOR CONSULTATION: Advice regarding GERD, asthma, multiple other medical issues requested by Psychiatry. HISTORY OF PRESENT ILLNESS: This 32-year-old woman with a past history of asthma, GERD, hypertension, pneumonia, history of drug addiction, history of kidney stones, tachycardia, bronchitis, ADD, ADHD, anxiety, bipolar, PTSD, being followed by Dr. Wright in the outpatient setting was admitted for psychiatric evaluation. There is no history of fever, rigors. No headache, loss of consciousness, seizures. The patient had suicidal ideation. The patient also complaining of right flank pain also at this time. The patient apparently had a renal stone also. PAST MEDICAL HISTORY: Asthma, GERD, pneumonia, substance abuse, ADD/ADHD, anxiety, bipolar depression, personality disorder. MEDICATIONS: Prior to admission include: 1. Metoprolol tartrate 12.5 mg b.i.d. 2. Zoloft 50 mg daily and 200 mg b.i.d. 3. Zantac 150 mg b.i.d. 4. Seroquel 50 mg q.h.s. 5. Zofran 4 mg q.8h p.r.n. 6. Motrin 600 mg q.6h p.r.n. ALLERGIES: ZITHROMAX, HYDROCODONE, KENALOG AND BACTRIM, ULTRAM, CODEINE, BENADRYL. PHYSICAL EXAM: Patient is alert, oriented, pulse 101, blood pressure is 110/74, respiration 18, temperature 98.2, pulse ox normal. HEENT: Conjunctivae normal. Oral mucosa moist. NECK: No jugular venous distention. No carotid bruit. No lymph node enlargement. CARDIOVASCULAR: S1, S2. RESPIRATORY: Breath sounds diminished in the bases. No rhonchi, no crackles. ABDOMEN: Soft, mild diffuse tenderness in the right renal angle present. No mass palpable. LEGS: No edema, no swelling. NERVOUS SYSTEM: Higher functions as mentioned earlier, moves all 4 limbs, no focal motor deficits. LYMPHATICS: No lymphadenopathy in the neck, axillae, groin. SKIN: No ulcer, rash or bleeding. LABS: Glucose 255, LDL is 181. ASSESSMENT: 1. Right flank pain, rule out urolithiasis. 2. History of asthma. 3. History of gastroesophageal reflux disease. 4. History of pneumonia. 5. History of substance abuse. 6. History attention deficit disorder, attention deficit hyperactivity disorder. 7. History of anxiety, bipolar, posttraumatic stress disorder. 8. History of personality disorder. 9. Hyperlipidemia. RECOMMENDATIONS AND DISCUSSION: This 32-year-old woman who presented with multiple complex medical issues, we will monitor the patient closely. Continue the current medications and symptomatic treatment. The UA shows some RBCs. I would recommend an abdominal flat plate and as well as symptomatic treatment for the nephrolithiasis. Otherwise we will continue to monitor. See orders for details. The patient may be asked to follow with the primary physician closely. Thank you for letting us participate in this patient. MMODL / IJN: [id number] /
[2017-11-21] MEDS: ARIPiprazole 2 MG TAB PO SCH (20:40)
[2017-11-21] MEDS: FAMOTIDINE 20 MG TAB PO SCH (20:40)
[2017-11-22] MEDS: ATORVASTATIN 10 MG TAB PO SCH (08:33)
[2017-11-22] MEDS: METOPROLOL TARTRATE 12.5 MG TAB PO SCH ×2 (08:33→20:17)
[2017-11-22] MEDS: ESCITALOPRAM 10 MG TAB PO SCH (08:35)
[2017-11-22] MEDS: FAMOTIDINE 20 MG TAB PO SCH ×2 (08:35→20:17)
--- NOTE | 2017-11-22 08:44 | XR ---
EXAMINATION TYPE: XR KUB DATE OF EXAM: 11/21/2017 COMPARISON: 03/28/2017 HISTORY: Right-sided renal stone TECHNIQUE: One view abdominal series FINDINGS: The osseous structures are intact. The bowel gas pattern is nonspecific. Extensive retained fecal de bris throughout the colon. This doesn't secure portions of the renal outlines. Previous surgery invol ving the right upper quadrant. No suspicious calcifications as visualized overlying the renal outlines. Calcification the pelvis lik [facility]. Postsurgical clips in the pelvis. IMPRESSION: 1. No suspicious calcification is visualized. 2. Extensive retained fecal debris correlate for constipation.
--- NOTE | 2017-11-22 09:57 | P.PN ---
Progress Note - Text Progress Note Date: 11/22/17 Interval History: Patient is a 32-year-old female who was seen today and reports that she has been sleeping well and feels much better. She states she no longer feels overwhelmed and is no longer hearing voices. She reports that she is not feeling depressed or suicidal. Patient reports that she is been eating well. Patient states that she spoken with her fiance last evening on several occasions and is eager to return home. She feels better able to cope with care of her grandmother which she does 3 days a week for about 8-10 hours. Patient reports no side effects from the medications. Mental Status: Appearance/Attitude: Patient is dressed in casual clothes, slightly disheveled looking making good eye contact and is cooperative Behavior: Patient does not exhibit any psychomotor agitation or retardation. Speech/Language: Patient's speech is spontaneous and of normal volume and rhythm and she is coherent Thought Process: Patient is goal-directed, no evidence of circumstantial or tangential thought and no loose associations or flight of ideas. Thought Content: Patient denies any auditory or visual hallucinations and no paranoid or delusional ideation is elicited. The patient reports that she is no longer feeling overwhelmed and has been sleeping well and feels rested. She reports that she is eating well. Patient states that she is not feeling tired and and has energy and motivation to do things. Suicidal/Homicidal Ideation: Patient denies any current suicidal or homicidal ideation. Sensorium/Cognition: Patient is alert and oriented to person, place, and time and her recent and remote memories are grossly intact. Mood/Affect: Patient's mood is pleasant and her affect is appropriate Insight/Judgment: Patient's insight and judgment are fair Assessment: Patient reports that she is feeling much better on the Abilify and Lexapro, reporting no further suicidal thoughts and that her auditory hallucinations have stopped patient states that she has been sleeping well here and feels ready to return home and care for her grandmother 3 days a week. Patient states that she is not having any side effects from the medication and reports feeling better on this combination then she was on Seroquel. Patient's flat plate of the abdomen revealed no renal calculi. Patient attending groups and activities. Plan: Patient will continue on Abilify 2 mg at bedtime and Lexapro 10 mg in the morning. Patient was also begun on a statin due to her elevated cholesterol and lipids and I discussed this with her as well. Patient and I discussed discharge tomorrow and she was agreeable with this. Patient states she has an appointment at [facility] on 11/25 and on 11/[address] Wright.
[2017-11-22] MEDS: ONDANSETRON ODT 4 MG TAB PO PRN (10:30)
[2017-11-22] MEDS: ACETAMINOPHEN TAB 325 MG TAB PO PRN ×2 (16:34→20:18)
[2017-11-22] MEDS: ARIPiprazole 2 MG TAB PO SCH (20:17)
[2017-11-23] MEDS: ONDANSETRON ODT 4 MG TAB PO PRN (05:04)
[2017-11-23 06:40] VITALS: RESP 16
[2017-11-23] MEDS: METOPROLOL TARTRATE 12.5 MG TAB PO SCH (09:22)
[2017-11-23] MEDS: ATORVASTATIN 10 MG TAB PO SCH (09:22)
[2017-11-23] MEDS: ESCITALOPRAM 10 MG TAB PO SCH (09:22)
[2017-11-23] MEDS: FAMOTIDINE 20 MG TAB PO SCH (09:22)
[2017-11-23] MEDS: ACETAMINOPHEN TAB 325 MG TAB PO PRN (09:27)
[2017-11-23 09:34] VITALS: BP 107/61; PULSE 129; TEMP 98.2
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
== END 2017-11-23 11:30 | disposition home or self-care (01) | DRG 885 ==
LOC: EC 03:25 → 3MHU 05:32
PROVIDERS: ADMIT Psychiatry & Neurology Psychiatry; ATTEND Psychiatry & Neurology Psychiatry
DX: F33.1 Major depressive disorder, recurrent, moderate (principal); R45.851 Suicidal ideations; Z91.14 Patient's other noncompliance with medication regimen; E78.5 Hyperlipidemia, unspecified; F11.11 Opioid abuse, in remission; Z62.810 Personal history of physical and sexual abuse in childhood; J45.909 Unspecified asthma, uncomplicated; K21.9 Gastro-esophageal reflux disease without esophagitis; I10 Essential (primary) hypertension; F90.9 Attention-deficit hyperactivity disorder, unspecified type; F43.10 Post-traumatic stress disorder, unspecified; F41.9 Anxiety disorder, unspecified; F60.9 Personality disorder, unspecified; Z79.1 Long term (current) use of non-steroidal anti-inflammatories (NSAID); Z80.1 Family history of malignant neoplasm of trachea, bronchus and lung; Z81.8 Family history of other mental and behavioral disorders; Z90.49 Acquired absence of other specified parts of digestive tract; Z87.442 Personal history of urinary calculi; Z82.0 Family history of epilepsy and other diseases of the nervous system; Z87.01 Personal history of pneumonia (recurrent); Z98.51 Tubal ligation status; Z79.899 Other long term (current) drug therapy; Z88.2 Allergy status to sulfonamides; Z88.8 Allergy status to other drugs, medicaments and biological substances; Z88.6 Allergy status to analgesic agent; Z88.1 Allergy status to other antibiotic agents; Z91.012 Allergy to eggs
CPT/HCPCS: 74018; 80053; 80061; 80306; 81001; 81025; 82075; 83036; 84443; 85025; 93005; 99285

== ENCOUNTER 2017-12-09 11:43 | Emergency (ER) | payer OTHER ==
[2017-12-09 11:56] VITALS: TEMP 97.8
--- NOTE | 2017-12-09 12:06 | ED ---
General Adult HPI - General Chief complaint: Fall Stated complaint: Fell Down Stairs Time Seen by Provider: 12/09/17 12:00 Source: patient, EMS, RN notes reviewed, old records reviewed Mode of arrival: EMS Limitations: no limitations - History of Present Illness Initial comments: This is a 30-year-old female the ER status post fall. Patient states she is taking laundry downstairs. Patient had tripped, fell off and on about 6 stairs she did hit her head with no loss of consciousness complaining of head and neck pain, lower back pain. Patient was amateur at the scene. Denies any anticoagulation. - Related Data Home Medications Medication Instructions Recorded Confirmed Metoprolol Tartrate 12.5 mg PO BID 02/24/17 12/09/17 Sertraline [Zoloft] 200 mg PO DAILY 03/28/17 12/09/17 Ranitidine HCl [Zantac] 150 mg PO BID 08/12/17 12/09/17 Previous Rx's Medication Instructions Recorded Ondansetron Odt [Zofran ODT] 4 mg PO Q8HR PRN #20 tab 08/12/17 Ibuprofen [Motrin] 600 mg PO Q6HR PRN #30 day 10/14/17 ARIPiprazole [Abilify] 2 mg PO HS #14 tab 11/23/17 Atorvastatin [Lipitor] 10 mg PO DAILY #28 tab 11/23/17 Escitalopram [Lexapro] 10 mg PO DAILY #14 tab 11/23/17 Allergies Allergy/AdvReac Type Severity Reaction Status Date / Time azithromycin Allergy Rash/Hives Verified 12/09/17 12:17 hydrocodone Allergy Rash/Hives Verified 12/09/17 12:17 Quinolones Allergy Rash/Hives Verified 12/09/17 12:17 sulfamethoxazole Allergy Rash/Hives Verified 12/09/17 12:17 [From Bactrim] tramadol Allergy Rash/Hives Verified 12/09/17 12:17 trimethoprim [From Bactrim] Allergy Rash/Hives Verified 12/09/17 12:17 codeine AdvReac Vertigo Verified 12/09/17 12:17 diphenhydramine HCl AdvReac Rapid Verified 12/09/17 12:17 [From Benadryl] Heart Rate egg AdvReac Nausea & Verified 12/09/17 12:17 Vomiting Review of Systems ROS Statement: Those systems with pertinent positive or pertinent negative responses have been documented in the HPI. ROS Other: All systems not noted in ROS Statement are negative. Past Medical History Past Medical History: Asthma, GERD/Reflux, Pneumonia Additional Past Medical History / Comment(s): history of drug addiction, kidney stones, UTI. 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 History of Any Multi-Drug Resistant Organisms: None Reported Past Surgical History: Cholecystectomy, Tubal Ligation Past Anesthesia/Blood Transfusion Reactions: No Reported Reaction Additional Past Anesthesia/Blood Transfusion Reaction / Comment(s): had blood transfusion age 16(lost a baby)-no reactin to blood Past Psychological History: ADD/ADHD, Anxiety, Bipolar, PTSD Smoking Status: Never smoker Past Alcohol Use History: None Reported Past Drug Use History: None Reported - Past Family History Father Family Medical History: Cancer Additional Family Medical History / Comment(s): Father at age 61 from lung CA Mother Family Medical History: Seizure Disorder Additional Family Medical History / Comment(s): Mother is alive at age 57 with history of bipolar/schitzophrenia Brother(s) Additional Family Medical History / Comment(s): She has one half brother that abuses cocaine and methamphetamines. She does not have any contact with him. Patient has 1 sister with no major medical problems. Patient does not have any children. General Exam - General Exam Comments Initial Comments: C-spine and lumbar spine tenderness Limitations: no limitations General appearance: alert, in no apparent distress Head exam: Present: atraumatic, normocephalic, normal inspection Eye exam: Present: normal appearance, PERRL, EOMI. Absent: scleral icterus, conjunctival injection, periorbital swelling ENT exam: Present: normal exam, mucous membranes moist Neck exam: Present: normal inspection. Absent: tenderness, meningismus, lymphadenopathy Respiratory exam: Present: normal lung sounds bilaterally. Absent: respiratory distress, wheezes, rales, rhonchi, stridor Cardiovascular Exam: Present: regular rate, normal rhythm, normal heart sounds. Absent: systolic murmur, diastolic murmur, rubs, gallop, clicks GI/Abdominal exam: Present: soft, normal bowel sounds. Absent: distended, tenderness, guarding, rebound, rigid Extremities exam: Present: normal inspection, full ROM, normal capillary refill. Absent: tenderness, pedal edema, joint swelling, calf tenderness Back exam: Present: normal inspection Neurological exam: Present: alert, oriented X3, CN II-XII intact Psychiatric exam: Present: normal affect, normal mood Skin exam: Present: warm, dry, intact, normal color. Absent: rash Course Vital Signs 12/09/17 12/09/17 11:52 12:11 Temperature 97.8 F Pulse Rate 90 86 Respiratory 18 16 Rate Blood Pressure 99/61 99/61 O2 Sat by Pulse 96 97 Oximetry Medical Decision Making - Medical Decision Making 32 female SP trip and fall, no definite traumatic injury, will dc homje to take motrin and tylenol for pain - Radiology Data Radiology results: report reviewed (CT brain and Cspine is negative XR LS spine and pelvis is negative), image reviewed Disposition Clinical Impression: Fall, Head injury, Back contusion Disposition: HOME SELF-CARE Condition: Good Instructions: Fall Prevention for Older Adults (ED), Contusion in Adults (ED) Referrals: Cecile Wright MD [Primary Care Provider] - 1-2 days
[2017-12-09] MEDS ORDERED: ACETAMINOPHEN TAB 500 MG TAB PO STA (12:12)
[2017-12-09] MEDS ORDERED: IBUPROFEN 600 MG TAB PO STA (12:12)
[2017-12-09 12:13] VITALS: RESP 16
--- NOTE | 2017-12-09 12:37 | CT ---
EXAMINATION TYPE: CT brain cspine wo con DATE OF EXAM: 12/09/2017 COMPARISON: CT brain 02/01/2014 HISTORY: Fell down stairs CT DLP: 1737.0 mGycm Automated exposure control for dose reduction was used. TECHNIQUE: CT scan of the head and cervical spine are performed without contrast. FINDINGS: There is no acute intracranial hemorrhage, mass effect, or midline shift identified. Righ t frontal low attenuation is stable, there is some local encephalomalacia compatible with remote infa rct as on prior exam. The ventricles and sulci are within normal limits in size. The globes are inta ct and the visualized sinuses are clear. Calcified subcutaneous focus over the left scalp is again noted and may represent sebaceous cyst. Cervical spine is visualized in its entirety from C1 through upper thoracic levels and demonstrates s atisfactory alignment without evidence of acute fracture or dislocation. Prevertebral soft tissue ap pears within normal limits. The C1-C2 articulation is unremarkable. 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 Cervical ribs noted at C7. IMPRESSION: 1. There is no acute fracture or dislocation evident in the cervical spine. 2. No acute intracranial hemorrhage, mass effect, or midline shift is seen.
--- NOTE | 2017-12-09 12:40 | XR ---
EXAM TYPE: LUMBAR SPINE X RAY SERIES COMPARISON: NONE HISTORY: Pain TECHNIQUE: 4 views are submitted. FINDINGS: Alignment is anatomic. The pedicles are intact. The transverse processes are intact. There is no s pondylolysis or spondylolisthesis. Surgical clips in the upper quadrant. IMPRESSION: 1. No acute process. If symptoms persist consider MRI.
--- NOTE | 2017-12-09 12:42 | XR ---
EXAMINATION TYPE: XR pelvis AP view DATE OF EXAM: 12/09/2017 COMPARISON: NONE HISTORY: Pain The osseous structures are intact and the joint spaces are preserved. No acute fracture is seen. Vi sualized bowel gas pattern is nonspecific. Surgical clips in the abdomen. Calcification in the pelvi s likely vascular. IMPRESSION: 1. No acute fracture.
[2017-12-09 13:03] VITALS: BP 120/71; PULSE 90
== END 2017-12-09 13:11 | disposition home or self-care (01) ==
LOC: EC 11:43
DX: S09.90XA Unspecified injury of head, initial encounter (principal); S30.0XXA Contusion of lower back and pelvis, initial encounter; M54.2 Cervicalgia; K21.9 Gastro-esophageal reflux disease without esophagitis; F31.9 Bipolar disorder, unspecified; F41.9 Anxiety disorder, unspecified; F43.10 Post-traumatic stress disorder, unspecified; Z79.899 Other long term (current) drug therapy; Z88.1 Allergy status to other antibiotic agents; Z88.2 Allergy status to sulfonamides; Z88.5 Allergy status to narcotic agent; Z88.6 Allergy status to analgesic agent; Z88.8 Allergy status to other drugs, medicaments and biological substances; Z91.012 Allergy to eggs; W10.9XXA Fall (on) (from) unspecified stairs and steps, initial encounter
CPT/HCPCS: 70450; 72110; 72125; 72170; 99284

== ENCOUNTER 2017-12-14 17:55 | Emergency (ER) | payer OTHER ==
--- NOTE | 2017-12-14 18:44 | ED ---
General Adult HPI - General Chief complaint: Extremity Injury, Lower Stated complaint: Lt ankle pain Time Seen by Provider: 12/14/17 17:58 Source: patient, EMS Mode of arrival: EMS Limitations: no limitations - History of Present Illness Initial comments: 32-year-old female presents to the emergency department by ambulance for a chief complaint of left foot pain x 1 hr. Patient was dancing when she rolled her left ankle. Patient denies falling to the floor or hitting her head. Patient states the pain is a sharp pain and is worse when pressure is applied to it. Patient states she has trouble bearing weight on the left foot since this injury. Patient denies pain in the knee or hip. Patient states she felt a pop when she rolled onto the side of her foot. Patient is currently sitting on exam bed in no distress or pain. Patient states she has never had surgery on that foot before. - Related Data Home Medications Medication Instructions Recorded Confirmed Metoprolol Tartrate 12.5 mg PO BID 02/24/17 12/09/17 Ranitidine HCl [Zantac] 150 mg PO BID 08/12/17 12/09/17 ARIPiprazole [Abilify] 10 mg PO HS 12/14/17 12/14/17 Atorvastatin [Lipitor] 10 mg PO HS 12/14/17 12/14/17 SUMAtriptan SUCCINATE [Imitrex] 100 mg PO DAILY PRN 12/14/17 12/14/17 Sertraline [Zoloft] 50 mg PO DAILY 12/14/17 12/14/17 Previous Rx's Medication Instructions Recorded Escitalopram [Lexapro] 10 mg PO DAILY #14 tab 11/23/17 Ibuprofen [Motrin] 600 mg PO Q8HR PRN #20 tab 12/09/17 Acetaminophen-Codeine 300-30mg 1 tab PO Q8H PRN #10 tablet 12/14/17 [Tylenol #3] Allergies Allergy/AdvReac Type Severity Reaction Status Date / Time azithromycin Allergy Rash/Hives Verified 12/14/17 18:55 hydrocodone Allergy Rash/Hives Verified 12/14/17 18:55 Quinolones Allergy Rash/Hives Verified 12/14/17 18:55 sulfamethoxazole Allergy Rash/Hives Verified 12/14/17 18:55 [From Bactrim] tramadol Allergy Rash/Hives Verified 12/14/17 18:55 trimethoprim [From Bactrim] Allergy Rash/Hives Verified 12/14/17 18:55 codeine AdvReac Vertigo Verified 12/14/17 18:55 diphenhydramine HCl AdvReac Rapid Verified 12/14/17 18:55 [From Benadryl] Heart Rate egg AdvReac Nausea & Verified 12/14/17 18:55 Vomiting Review of Systems ROS Statement: Those systems with pertinent positive or pertinent negative responses have been documented in the HPI. ROS Other: All systems not noted in ROS Statement are negative. Past Medical History Past Medical History: Asthma, GERD/Reflux, Pneumonia Additional Past Medical History / Comment(s): history of drug addiction, kidney stones, UTI. 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 History of Any Multi-Drug Resistant Organisms: None Reported Past Surgical History: Cholecystectomy, Tubal Ligation Past Anesthesia/Blood Transfusion Reactions: No Reported Reaction Additional Past Anesthesia/Blood Transfusion Reaction / Comment(s): had blood transfusion age 16(lost a baby)-no reactin to blood Past Psychological History: ADD/ADHD, Anxiety, Bipolar, PTSD Smoking Status: Never smoker Past Alcohol Use History: None Reported Past Drug Use History: None Reported - Past Family History Father Family Medical History: Cancer Additional Family Medical History / Comment(s): Father at age 61 from lung CA Mother Family Medical History: Seizure Disorder Additional Family Medical History / Comment(s): Mother is alive at age 57 with history of bipolar/schitzophrenia Brother(s) Additional Family Medical History / Comment(s): She has one half brother that abuses cocaine and methamphetamines. She does not have any contact with him. Patient has 1 sister with no major medical problems. Patient does not have any children. General Exam Limitations: no limitations Respiratory exam: Present: normal lung sounds bilaterally. Absent: respiratory distress, wheezes, rales, rhonchi, stridor Cardiovascular Exam: Present: regular rate, normal rhythm, normal heart sounds. Absent: systolic murmur, diastolic murmur, rubs, gallop, clicks Extremities exam: Present: full ROM (Patient has full range of motion of the left ankle and foot but complains of pain with extension and flexion of the ankle.), tenderness (To the lateral foot. No tenderness to the navicularis, or medial or lateral malleolus on the left ankle.), normal capillary refill ( Refill less than 2 seconds in lower extremities bilaterally), other (Pedal pulses 2+ in lower extremities bilaterally. There is a small contusion of the left lateral midfoot.). Absent: pedal edema, joint swelling (No swelling noted in left lower extremity), calf tenderness Course Vital Signs 12/14/17 18:08 Temperature 97.8 F Pulse Rate 108 H Respiratory 16 Rate Blood Pressure 109/69 O2 Sat by Pulse 97 Oximetry Medical Decision Making - Medical Decision Making 32-year-old female presents to the emergency department with a chief complaint of left foot pain. Patient was dancing when she rolled her ankle. Patient arrived by EMS. Patient had tenderness along the lateral aspect of the left foot. Foot and ankle x-ray demonstrate an old unfused fracture of the fifth metatarsal. No acute abnormalities. Patient states she was like to follow up with Dr. Li as she has seen him before. Patient was splinted in a short leg splint on the left lower extremity. Patient requested crutches to keep the weight off the foot. Patient was given Tylenol 3 and told to follow-up in one to [address] Willis. She is to return to the emergency department if symptoms worsen. Disposition Clinical Impression: Fracture of 5th metatarsal Disposition: HOME SELF-CARE Condition: Good Instructions: Foot Fracture in Adults (ED) Additional Instructions: Please take ibuprofen for pain relief. Please use Tylenol 3 for severe pain if ibuprofen isn't helping. Please use crutches and tried to refrain from putting weight on the left foot. Please follow-up with Dr. Willis in 1-2 days. Please return to the emergency department if you notice worsening symptoms. Prescriptions: Acetaminophen-Codeine 300-30mg [Tylenol #3] 1 tab PO Q8H PRN #10 tablet PRN Reason: Pain Referrals: Cecile Wright MD [Primary Care Provider] - 1-2 days Time of Disposition: 19:29
--- NOTE | 2017-12-14 19:10 | XR ---
Left foot and left ankle HISTORY: Trauma and pain 3 views of the left foot and left ankle correlated to prior exam 06/23/2016 There is an old unfused proximal fifth metatarsal fracture which is stable. Alignment and bone minera lization are otherwise maintained. IMPRESSION: Stable exam. No acute abnormality.
[2017-12-14 19:54] VITALS: BP 115/80; PULSE 100; RESP 18; TEMP 98
== END 2017-12-14 19:53 | disposition home or self-care (01) ==
LOC: EC 17:55
DX: S92.352A Displaced fracture of fifth metatarsal bone, left foot, initial encounter for closed fracture (principal); K21.9 Gastro-esophageal reflux disease without esophagitis; F41.9 Anxiety disorder, unspecified; F31.9 Bipolar disorder, unspecified; F43.10 Post-traumatic stress disorder, unspecified; F90.9 Attention-deficit hyperactivity disorder, unspecified type; Z79.899 Other long term (current) drug therapy; Z88.1 Allergy status to other antibiotic agents; Z88.5 Allergy status to narcotic agent; Z88.2 Allergy status to sulfonamides; Z88.6 Allergy status to analgesic agent; Z88.8 Allergy status to other drugs, medicaments and biological substances; Z91.012 Allergy to eggs; X50.1XXA Overexertion from prolonged static or awkward postures, initial encounter; Y93.41 Activity, dancing
CPT/HCPCS: 29515; 99283

== ENCOUNTER 2017-12-26 02:37 | Observation (INO) | payer OTHER ==
[2017-12-26] MEDS ORDERED: SODIUM CHLORIDE 0.9% 500 ML IV STA (03:28)
[2017-12-26] MEDS ORDERED: SODIUM CHLORIDE 0.9% 1,000 ML IV STA (03:28)
[2017-12-26] MEDS ORDERED: KETOROLAC 30 MG/ML 1 ML VIAL IVP STA (03:28)
[2017-12-26] MEDS ORDERED: methylPREDNISolone SOD SUCCI 125 MG/2 ML VIAL IV STA (03:29)
[2017-12-26] MEDS ORDERED: IPRATROPIUM-ALBUTEROL 3 ML NEB INHALATION STA (03:29)
--- NOTE | 2017-12-26 04:26 | ED ---
General Adult HPI - General Chief complaint: Chest Pain Stated complaint: chest pain Time Seen by Provider: 12/26/17 02:41 Source: patient, RN notes reviewed, old records reviewed Mode of arrival: EMS Limitations: no limitations - History of Present Illness Initial comments: This is a 30-year-old female the ER for evaluation of chest pain. Left-sided chest pain severe with palpitations shortness of breath and diaphoresis. Patient states she has history of multiple heart attacks, no recent cardiac evaluation. She has mild nausea no vomiting. Patient is in both vascular summer she denies drinking or smoking denies any recent drug or alcohol use - Related Data Home Medications Medication Instructions Recorded Confirmed Metoprolol Tartrate 12.5 mg PO BID 02/24/17 12/14/17 Ranitidine HCl [Zantac] 150 mg PO BID 08/12/17 12/14/17 ARIPiprazole [Abilify] 10 mg PO HS 12/14/17 12/14/17 Atorvastatin [Lipitor] 10 mg PO HS 12/14/17 12/14/17 SUMAtriptan SUCCINATE [Imitrex] 100 mg PO DAILY PRN 12/14/17 12/14/17 Sertraline [Zoloft] 50 mg PO DAILY 12/14/17 12/14/17 Previous Rx's Medication Instructions Recorded Escitalopram [Lexapro] 10 mg PO DAILY #14 tab 11/23/17 Ibuprofen [Motrin] 600 mg PO Q8HR PRN #20 tab 12/09/17 Acetaminophen-Codeine 300-30mg 1 tab PO Q8H PRN #10 tablet 12/14/17 [Tylenol #3] Allergies Allergy/AdvReac Type Severity Reaction Status Date / Time azithromycin Allergy Rash/Hives Verified 12/14/17 18:55 hydrocodone Allergy Rash/Hives Verified 12/14/17 18:55 Quinolones Allergy Rash/Hives Verified 12/14/17 18:55 sulfamethoxazole Allergy Rash/Hives Verified 12/14/17 18:55 [From Bactrim] tramadol Allergy Rash/Hives Verified 12/14/17 18:55 trimethoprim [From Bactrim] Allergy Rash/Hives Verified 12/14/17 18:55 codeine AdvReac Vertigo Verified 12/14/17 18:55 diphenhydramine HCl AdvReac Rapid Verified 12/14/17 18:55 [From Benadryl] Heart Rate egg AdvReac Nausea & Verified 12/14/17 18:55 Vomiting Review of Systems ROS Statement: Those systems with pertinent positive or pertinent negative responses have been documented in the HPI. ROS Other: All systems not noted in ROS Statement are negative. Past Medical History Past Medical History: Asthma, GERD/Reflux, Pneumonia Additional Past Medical History / Comment(s): history of drug addiction, kidney stones, UTI. BRONCHITS,"TACHYCARDIA", USED TO TAKE DEPAKOTE FOR HER PERSONALITY DISORDER/BIPOLAR- HAD SEIZURES WHEN HER DEPAKOTE RAN OUT AND QUIT COLD TURKEY-DID'NT RESUME IT" PT STATED SHE THINKS SHE HAD A MILD SEIZURE 17."HEADACHES". History of Any Multi-Drug Resistant Organisms: None Reported Past Surgical History: Cholecystectomy, Tubal Ligation Past Anesthesia/Blood Transfusion Reactions: No Reported Reaction Additional Past Anesthesia/Blood Transfusion Reaction / Comment(s): had blood transfusion age 16(lost a baby)-no reactin to blood Past Psychological History: ADD/ADHD, Anxiety, Bipolar, PTSD Smoking Status: Never smoker Past Alcohol Use History: None Reported Past Drug Use History: None Reported - Past Family History Father Family Medical History: Cancer Additional Family Medical History / Comment(s): Father at age 61 from lung CA Mother Family Medical History: Seizure Disorder Additional Family Medical History / Comment(s): Mother is alive at age 57 with history of bipolar/schitzophrenia Brother(s) Additional Family Medical History / Comment(s): She has one half brother that abuses cocaine and methamphetamines. She does not have any contact with him. Patient has 1 sister with no major medical problems. Patient does not have any children. General Exam Limitations: no limitations General appearance: alert, in no apparent distress Head exam: Present: atraumatic, normocephalic, normal inspection Eye exam: Present: normal appearance, PERRL, EOMI. Absent: scleral icterus, conjunctival injection, periorbital swelling ENT exam: Present: normal exam, mucous membranes moist Neck exam: Present: normal inspection. Absent: tenderness, meningismus, lymphadenopathy Respiratory exam: Present: normal lung sounds bilaterally. Absent: respiratory distress, wheezes, rales, rhonchi, stridor Cardiovascular Exam: Present: regular rate, normal rhythm, normal heart sounds. Absent: systolic murmur, diastolic murmur, rubs, gallop, clicks GI/Abdominal exam: Present: soft, normal bowel sounds. Absent: distended, tenderness, guarding, rebound, rigid Extremities exam: Present: normal inspection, full ROM, normal capillary refill. Absent: tenderness, pedal edema, joint swelling, calf tenderness Back exam: Present: normal inspection Neurological exam: Present: alert, oriented X3, CN II-XII intact Psychiatric exam: Present: normal affect, normal mood Skin exam: Present: warm, dry, intact, normal color. Absent: rash Course Vital Signs 12/26/17 12/26/17 12/26/17 02:43 02:49 02:51 Temperature 98.6 F Pulse Rate 93 Pulse Rate [ 74 Right] Respiratory 16 14 Rate Blood Pressure 125/84 O2 Sat by Pulse 96 Oximetry 12/26/17 12/26/17 12/26/17 04:27 04:37 04:51 Temperature 97.8 F Pulse Rate 74 94 84 Pulse Rate [ Right] Respiratory 16 Rate Blood Pressure 106/72 O2 Sat by Pulse 99 Oximetry 12/26/17 05:25 Temperature 97.9 F Pulse Rate 88 Pulse Rate [ Right] Respiratory 14 Rate Blood Pressure 96/57 O2 Sat by Pulse 98 Oximetry - Reevaluation(s) Reevaluation #1: 12/26/17 06:09 Patient's medical records thoroughly reviewed including multiple hospital admissions and evaluations for psychiatric as well as chest pain issues EKG Findings - EKG Comments: EKG Findings:: EKG shows normal sinus rhythm rate of 87, MA 1:30, QRS 102, QTc 438 Medical Decision Making - Medical Decision Making 30 female the ER with chest pain, patient will be admitted for cardiac observation, patient states last time 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 and told if she becomes the hospital she has to be admitted - Lab Data Result diagrams: 12/26/17 03:10 12/26/17 03:10 Lab Results 12/26/17 12/26/17 12/26/17 Range/Units 03:10 03:10 03:10 WBC 6.7 (3.8-10.6) k/uL RBC 4.26 (3.80-5.40) m/uL Hgb 13.2 (11.4-16.0) gm/dL Hct 40.3 (34.0-46.0) % MCV 94.6 (80.0-100.0) fL MCH 31.0 (25.0-35.0) pg MCHC 32.8 (31.0-37.0) g/dL RDW 13.1 (11.5-15.5) % Plt Count 225 (150-450) k/uL Neutrophils % 39 % Lymphocytes % 46 % Monocytes % 10 % Eosinophils % 2 % Basophils % 0 % Neutrophils # 2.6 (1.3-7.7) k/uL Lymphocytes # 3.1 (1.0-4.8) k/uL Monocytes # 0.7 (0-1.0) k/uL Eosinophils # 0.2 (0-0.7) k/uL Basophils # 0.0 (0-0.2) k/uL PT (9.0-12.0) sec INR (<1.2) APTT (22.0-30.0) sec D-Dimer (<0.60) mg/L FEU Sodium 143 (137-145) mmol/L Potassium 4.3 (3.5-5.1) mmol/L Chloride 109 H (98-107) mmol/L Carbon Dioxide 23 (22-30) mmol/L Anion Gap 11 mmol/L BUN 15 (7-17) mg/dL Creatinine 0.80 (0.52-1.04) mg/dL Est GFR (CKD-EPI)AfAm >90 (>60 ml/min/1.73 sqM) Est GFR (CKD-EPI)NonAf >90 (>60 ml/min/1.73 sqM) Glucose 113 H (74-99) mg/dL Calcium 9.4 (8.4-10.2) mg/dL Magnesium 2.0 (1.6-2.3) mg/dL Total Bilirubin 0.3 (0.2-1.3) mg/dL AST 25 (14-36) U/L ALT 22 (9-52) U/L Alkaline Phosphatase 47 (38-126) U/L Total Creatine Kinase 106 (30-135) U/L CK-MB (CK-2) 0.7 (0.0-2.4) ng/mL CK-MB (CK-2) Rel Index 0.7 Troponin I <0.012 (0.000-0.034) ng/mL Total Protein 7.0 (6.3-8.2) g/dL Albumin 3.7 (3.5-5.0) g/dL Lipase 177 (23-300) U/L 12/26/17 Range/Units 03:10 WBC (3.8-10.6) k/uL RBC (3.80-5.40) m/uL Hgb (11.4-16.0) gm/dL Hct (34.0-46.0) % MCV (80.0-100.0) fL MCH (25.0-35.0) pg MCHC (31.0-37.0) g/dL RDW (11.5-15.5) % Plt Count (150-450) k/uL Neutrophils % % Lymphocytes % % Monocytes % % Eosinophils % % Basophils % % Neutrophils # (1.3-7.7) k/uL Lymphocytes # (1.0-4.8) k/uL Monocytes # (0-1.0) k/uL Eosinophils # (0-0.7) k/uL Basophils # (0-0.2) k/uL PT 10.7 (9.0-12.0) sec INR 1.1 (<1.2) APTT 22.9 (22.0-30.0) sec D-Dimer 0.23 (<0.60) mg/L FEU Sodium (137-145) mmol/L Potassium (3.5-5.1) mmol/L Chloride (98-107) mmol/L Carbon Dioxide (22-30) mmol/L Anion Gap mmol/L BUN (7-17) mg/dL Creatinine (0.52-1.04) mg/dL Est GFR (CKD-EPI)AfAm (>60 ml/min/1.73 sqM) Est GFR (CKD-EPI)NonAf (>60 ml/min/1.73 sqM) Glucose (74-99) mg/dL Calcium (8.4-10.2) mg/dL Magnesium (1.6-2.3) mg/dL Total Bilirubin (0.2-1.3) mg/dL AST (14-36) U/L ALT (9-52) U/L Alkaline Phosphatase (38-126) U/L Total Creatine Kinase (30-135) U/L CK-MB (CK-2) (0.0-2.4) ng/mL CK-MB (CK-2) Rel Index Troponin I (0.000-0.034) ng/mL Total Protein (6.3-8.2) g/dL Albumin (3.5-5.0) g/dL Lipase (23-300) U/L - Radiology Data Radiology results: report reviewed (Chest x-rays negative), image reviewed Disposition Clinical Impression: Unstable angina pectoris, Chest pain Disposition: ADMITTED IP TO THIS [facility] Condition: Undetermined
[2017-12-26 04:31] LABS: Basophils % (A) 0 %; Eosinophils # (A) 0.2 k/uL (0-0.7); Eosinophils % (A) 2 %; HCT 40.3 % (34.0-46.0); HGB 13.2 gm/dL (11.4-16.0); Lymphocytes # (A) 3.1 k/uL (1.0-4.8); Lymphocytes % (A) 46 %; MCHC 32.8 g/dL (31.0-37.0); MCV 94.6 fL (80.0-100.0); Mean Platelet Volume 7.4; Monocytes # (A) 0.7 k/uL (0-1.0); Monocytes % (A) 10 %; Neutrophils # (A) 2.6 k/uL (1.3-7.7); Neutrophils % (A) 39 %; Platelet Count 225 k/uL (150-450); RBC 4.26 m/uL (3.80-5.40); RDW 13.1 % (11.5-15.5); WBC 6.7 k/uL (3.8-10.6)
[2017-12-26 04:46] LABS: D-Dimer 0.23 mg/L FEU (<0.60); INR 1.1 (<1.2); Partial Thromboplastin Time 22.9 sec (22.0-30.0); Prothrombin Time 10.7 sec (9.0-12.0)
[2017-12-26] MEDS ORDERED: ONDANSETRON 4 MG/2 ML VIAL IVP STA (04:47)
[2017-12-26] MEDS ORDERED: PANTOPRAZOLE 40 MG/10 ML VIAL IVP STA (04:47)
[2017-12-26] MEDS ORDERED: ONDANSETRON 4 MG/2 ML VIAL IVP PRN (04:47)
[2017-12-26 04:55] LABS: Albumin 3.7 g/dL (3.5-5.0); Anion Gap 11 mmol/L; Calcium 9.4 mg/dL (8.4-10.2); Carbon Dioxide 23 mmol/L (22-30); Chloride 109 mmol/L (98-107); Glucose 113 mg/dL (74-99); Lipase 177 U/L (23-300); Sodium 143 mmol/L (137-145); Total Bilirubin 0.3 mg/dL (0.2-1.3)
[2017-12-26 04:58] LABS: Blood Urea Nitrogen 15 mg/dL (7-17); Potassium 4.3 mmol/L (3.5-5.1)
[2017-12-26 04:59] LABS: ALT 22 U/L (9-52); AST 25 U/L (14-36); Alkaline Phosphatase 47 U/L (38-126)
[2017-12-26 05:01] LABS: Creatine Kinase 106 U/L (30-135)
[2017-12-26 05:13] LABS: Creatine Kinase MB 0.7 ng/mL (0.0-2.4); Troponin I <0.012 ng/mL (0.000-0.034)
--- NOTE | 2017-12-26 05:19 | XR ---
EXAM: XR Chest, 2 Views CLINICAL HISTORY: ITS.REASON XR Reason: Chest Pain TECHNIQUE: Frontal and lateral views of the chest. COMPARISON: Chest x-ray dated 08/12/2017. FINDINGS: Lungs: Unremarkable. The lungs are clear. Pleural space: Unremarkable. No pneumothorax. Heart: Unremarkable. No cardiomegaly. Mediastinum: Unremarkable. Bones/joints: Unremarkable. IMPRESSION: Normal chest x-rays.
[2017-12-26] MEDS ORDERED: NITROGLYCERIN SL TABS 0.4 MG TAB SUBLINGUAL PRN (05:52)
[2017-12-26] MEDS ORDERED: HEPARIN SODIUM,PORCINE 5,000 UNIT/ML 1 ML VIAL IV ONE (05:52)
[2017-12-26] MEDS ORDERED: HEPARIN SODIUM,PORCINE 5,000 UNIT/ML 1 ML VIAL IV PRN (05:52)
[2017-12-26] MEDS ORDERED: ASPIRIN 81 MG PO STA (05:52)
[2017-12-26] MEDS ORDERED: HEPARIN SOD,PORK IN 0.45% NACL 25,000 UNIT in 0.45% NACL 1 500ML.BAG IV SCH (06:00)
[2017-12-26 07:36] VITALS: RESP 16
[2017-12-26 08:39] LABS: Mean Platelet Volume 6.3; Platelet Count 232 k/uL (150-450)
[2017-12-26 08:58] LABS: Creatine Kinase 97 U/L (30-135)
[2017-12-26] MEDS ORDERED: ATORVASTATIN 80 MG TAB PO SCH (09:00)
[2017-12-26 09:11] LABS: Creatine Kinase MB 0.6 ng/mL (0.0-2.4); Troponin I <0.012 ng/mL (0.000-0.034)
[2017-12-26] MEDS ORDERED: Acetaminophen-Codeine 300-30mg TAB PO PRN (11:47)
[2017-12-26] MEDS ORDERED: ESCITALOPRAM 10 MG TAB PO SCH (12:00)
[2017-12-26] MEDS ORDERED: ARIPiprazole 2 MG TAB PO SCH ×2 (12:00→21:00)
[2017-12-26] MEDS ORDERED: NON-FORMULARY DRUG (Ranitidine Hcl [Zantac] 150 MG) PO SCH (12:00)
[2017-12-26] MEDS ORDERED: METOPROLOL TARTRATE 12.5 MG TAB PO SCH (12:00)
[2017-12-26] MEDS ORDERED: SERTRALINE 50 MG TAB PO SCH (12:00)
[2017-12-26 12:02] VITALS: BP 104/65; PULSE 94; TEMP 98
--- NOTE | 2017-12-26 14:59 | P.HPIM ---
History of Present Illness 30-year-old female came in with compensative chest pain patient felt agitated patient was angry at her friend and started having 11/tensive chest pain radiating to the left arm which is tingling and numbness sensation patient had a stress test last year which was negative. Patient doesn't does have history of psychiatric issues bipolar disorder and anxiety disorder. Patient denied any chest pain at this point of time patient is complaining of diaphoresis at that time. Patient denied any fever chills patient chest pain is nonpleuritic in nature not associated with food. Review of Systems REVIEW OF SYSTEMS: CONSTITUTIONAL: No fever, no malaise, no fatigue. HEENT: No recent visual problems or hearing problems. Denied any sore throat. CARDIOVASCULAR: No orthopnea, PND, no palpitations, no syncope. PULMONARY: No shortness of breath, no cough, no hemoptysis. GASTROINTESTINAL: No diarrhea, no nausea, no vomiting, no abdominal pain. Normoactive bowel sounds. NEUROLOGICAL: No headaches, no weakness, no numbness. HEMATOLOGICAL: Denies any bleeding or petechiae. GENITOURINARY: Denies any burning micturition, frequency, or urgency. MUSCULOSKELETAL/RHEUMATOLOGICAL: Denies any joint pain, swelling, or any muscle pain. ENDOCRINE: Denies any polyuria or polydipsia. The rest of the 14-point review of systems is negative. 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 History of Any Multi-Drug Resistant Organisms: None Reported Past Surgical History: Cholecystectomy, Tubal Ligation Additional Past Surgical History / Comment(s): Tilt table test, wisdom teeth extraction. Past Anesthesia/Blood Transfusion Reactions: No Reported Reaction Additional Past Anesthesia/Blood Transfusion Reaction / Comment(s): had blood transfusion age 16(lost a baby)-no reactin to blood Smoking Status: Former smoker - Past Family History Father Family Medical History: Cancer Additional Family Medical History / Comment(s): Father at age 61 from lung CA Mother Family Medical History: Seizure Disorder Additional Family Medical History / Comment(s): Mother is alive with history of bipolar/schitzophrenia Brother(s) Additional Family Medical History / Comment(s): She has one half brother that abuses cocaine and methamphetamines. She does not have any contact with him. Patient has 1 sister with no major medical problems. Patient does not have any children. Medications and Allergies Home Medications Medication Instructions Recorded Confirmed Type Metoprolol Tartrate 12.5 mg PO BID 02/24/17 12/26/17 History Ranitidine HCl [Zantac] 150 mg PO BID 08/12/17 12/26/17 History Escitalopram [Lexapro] 10 mg PO DAILY #14 tab 11/23/17 12/26/17 Rx Ibuprofen [Motrin] 600 mg PO Q8HR PRN #20 tab 12/09/17 12/26/17 Rx Acetaminophen-Codeine 300-30mg 1 tab PO Q8H PRN #10 tablet 12/14/17 12/26/17 Rx [Tylenol #3] Atorvastatin [Lipitor] 10 mg PO HS 12/14/17 12/26/17 History SUMAtriptan SUCCINATE [Imitrex] 100 mg PO DAILY PRN 12/14/17 12/26/17 History Sertraline [Zoloft] 50 mg PO DAILY 12/14/17 12/26/17 History ARIPiprazole [Abilify] 2 mg PO DAILY 12/26/17 12/26/17 History Allergies Allergy/AdvReac Type Severity Reaction Status Date / Time azithromycin Allergy Rash/Hives Verified 12/26/17 07:59 hydrocodone Allergy Rash/Hives Verified 12/26/17 07:59 Quinolones Allergy Rash/Hives Verified 12/26/17 07:59 sulfamethoxazole Allergy Rash/Hives Verified 12/26/17 07:59 [From Bactrim] tramadol Allergy Rash/Hives Verified 12/26/17 07:59 trimethoprim [From Bactrim] Allergy Rash/Hives Verified 12/26/17 07:59 codeine AdvReac Vertigo Verified 12/26/17 07:59 diphenhydramine HCl AdvReac Rapid Verified 12/26/17 07:59 [From Benadryl] Heart Rate egg AdvReac Nausea & Verified 12/26/17 07:59 Vomiting Physical Exam Vitals: Vital Signs Temp Pulse Pulse Pulse Resp BP BP 12/26/17 12:00 94 94 16 12/26/17 11:53 98 F 94 94 16 104/65 12/26/17 08:00 97 16 12/26/17 07:33 98.4 F 97 16 109/72 12/26/17 06:27 97.9 F 93 14 105/69 12/26/17 05:25 97.9 F 88 14 96/57 12/26/17 04:51 84 12/26/17 04:37 97.8 F 94 16 106/72 12/26/17 04:27 74 12/26/17 02:51 14 12/26/17 02:49 74 12/26/17 02:43 98.6 F 93 16 125/84 Pulse Ox 12/26/17 12:00 12/26/17 11:53 95 12/26/17 08:00 12/26/17 07:33 97 12/26/17 06:27 97 12/26/17 05:25 98 12/26/17 04:51 12/26/17 04:37 99 12/26/17 04:27 12/26/17 02:51 12/26/17 02:49 12/26/17 02:43 96 Intake and Output 12/25/17 12/26/17 12/26/17 22:59 06:59 14:59 Intake Total 360 Balance 360 Intake: Oral 360 Other: Voiding Method Toilet # Voids 1 Weight 85.729 kg 84.8 kg PHYSICAL EXAMINATION: GENERAL: The patient is alert and oriented x3, not in any acute distress. Well developed, well nourished. HEENT: Pupils are round and equally reacting to light. EOMI. No scleral icterus. No conjunctival pallor. Normocephalic, atraumatic. No pharyngeal erythema. No thyromegaly. CARDIOVASCULAR: S1 and S2 present. No murmurs, rubs, or gallops. PULMONARY: Chest is clear to auscultation, no wheezing or crackles. ABDOMEN: Soft, nontender, nondistended, normoactive bowel sounds. No palpable organomegaly. MUSCULOSKELETAL: No joint swelling or deformity. EXTREMITIES: No cyanosis, clubbing, or pedal edema. NEUROLOGICAL: Gross neurological examination did not reveal any focal deficits. SKIN: No rashes. Results CBC & Chem 7: 12/26/17 08:25 12/26/17 03:10 Labs: Abnormal Lab Results - Last 24 Hours (Table) 12/26/17 12/26/17 Range/Units 03:10 11:52 APTT 61.3 H (22.0-30.0) sec Chloride 109 H (98-107) mmol/L Glucose 113 H (74-99) mg/dL Thrombosis Risk Factor Assmnt - Choose All That Apply Any of the Below Risk Factors Present?: Yes Each Factor Represents 1 point: Obesity (BMI >25) Other Risk Factors: No Other congenital or acquired thrombophilia - If yes, enter type in comment: No Thrombosis Risk Factor Assessment Total Risk Factor Score: 1 Thrombosis Risk Factor Assessment Level: Low Risk Assessment and Plan Plan: -Chest pain: Patient's EKG is within normal limits 2 sets of troponins are negative second third set is negative patient probably can be discharged will rule out a concurrent syndromes her chest pain is probably related to her anxiety disorder. all during the interview patient does exhibit some features consistent with bipolar and genesis although patient is not acutely manic. Patient probably will be discharged of the circumflex third set of troponin cardio was consulted. -Hyperlipemia -Gastric esophageal reflux disease
--- NOTE | 2017-12-26 14:59 | P.DS ---
Providers Date of admission: 12/26/17 05:52 Attending physician: Kyle Denton Consults: 12/26/17 05:52 Consult Physician Urgent Consulting Provider: Renny Hernandez Consult Reason/Comments: cp Do you want consulting provider notified?: Yes Primary care physician: Adriana Huber [facility] Course: Please refer to my HPI Patient Condition at Discharge: Undetermined Plan - Discharge Summary Discharge Rx Participant: No New Discharge Prescriptions: No Action Metoprolol Tartrate 12.5 mg PO BID Ranitidine HCl [Zantac] 150 mg PO BID Escitalopram [Lexapro] 10 mg PO DAILY #14 tab Ibuprofen [Motrin] 600 mg PO Q8HR PRN #20 tab PRN Reason: Pain Sertraline [Zoloft] 50 mg PO DAILY SUMAtriptan SUCCINATE [Imitrex] 100 mg PO DAILY PRN PRN Reason: Migraine Headache Atorvastatin [Lipitor] 10 mg PO HS Acetaminophen-Codeine 300-30mg [Tylenol #3] 1 tab PO Q8H PRN #10 tablet PRN Reason: Pain ARIPiprazole [Abilify] 2 mg PO DAILY Discharge Medication List Metoprolol Tartrate 12.5 mg PO BID 02/24/17 [History] Ranitidine HCl [Zantac] 150 mg PO BID 08/12/17 [History] Escitalopram [Lexapro] 10 mg PO DAILY #14 tab 11/23/17 [Rx] Ibuprofen [Motrin] 600 mg PO Q8HR PRN #20 tab 12/09/17 [Rx] Acetaminophen-Codeine 300-30mg [Tylenol #3] 1 tab PO Q8H PRN #10 tablet [Rx] Atorvastatin [Lipitor] 10 mg PO HS 12/14/17 [History] SUMAtriptan SUCCINATE [Imitrex] 100 mg PO DAILY PRN 12/14/17 [History] Sertraline [Zoloft] 50 mg PO DAILY 12/14/17 [History] ARIPiprazole [Abilify] 2 mg PO DAILY 12/26/17 [History] Follow up Appointment(s)/Referral(s): Cecile Wright MD [Primary Care Provider] - 3 Days Discharge Disposition: HOME SELF-CARE
[2017-12-26 16:03] LABS: Creatine Kinase 94 U/L (30-135)
[2017-12-26 16:14] LABS: Creatine Kinase MB 0.5 ng/mL (0.0-2.4); Troponin I <0.012 ng/mL (0.000-0.034)
--- NOTE | 2017-12-26 18:20 | P.CRDCN ---
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 History of Any Multi-Drug Resistant Organisms: None Reported Past Surgical History: Cholecystectomy, Tubal Ligation Additional Past Surgical History / Comment(s): Tilt table test, wisdom teeth extraction. Past Anesthesia/Blood Transfusion Reactions: No Reported Reaction Additional Past Anesthesia/Blood Transfusion Reaction / Comment(s): had blood transfusion age 16(lost a baby)-no reactin to blood Smoking Status: Former smoker - Past Family History Father Family Medical History: Cancer Additional Family Medical History / Comment(s): Father at age 61 from lung CA Mother Family Medical History: Seizure Disorder Additional Family Medical History / Comment(s): Mother is alive with history of bipolar/schitzophrenia Brother(s) Additional Family Medical History / Comment(s): She has one half brother that abuses cocaine and methamphetamines. She does not have any contact with him. Patient has 1 sister with no major medical problems. Patient does not have any children. Medications and Allergies Home Medications Medication Instructions Recorded Confirmed Type Metoprolol Tartrate 12.5 mg PO BID 02/24/17 12/26/17 History Ranitidine HCl [Zantac] 150 mg PO BID 08/12/17 12/26/17 History Escitalopram [Lexapro] 10 mg PO DAILY #14 tab 11/23/17 12/26/17 Rx Ibuprofen [Motrin] 600 mg PO Q8HR PRN #20 tab 12/09/17 12/26/17 Rx Acetaminophen-Codeine 300-30mg 1 tab PO Q8H PRN #10 tablet 12/14/17 12/26/17 Rx [Tylenol #3] Atorvastatin [Lipitor] 10 mg PO HS 12/14/17 12/26/17 History SUMAtriptan SUCCINATE [Imitrex] 100 mg PO DAILY PRN 12/14/17 12/26/17 History Sertraline [Zoloft] 50 mg PO DAILY 12/14/17 12/26/17 History ARIPiprazole [Abilify] 2 mg PO DAILY 12/26/17 12/26/17 History Allergies Allergy/AdvReac Type Severity Reaction Status Date / Time azithromycin Allergy Rash/Hives Verified 12/26/17 07:59 hydrocodone Allergy Rash/Hives Verified 12/26/17 07:59 Quinolones Allergy Rash/Hives Verified 12/26/17 07:59 sulfamethoxazole Allergy Rash/Hives Verified 12/26/17 07:59 [From Bactrim] tramadol Allergy Rash/Hives Verified 12/26/17 07:59 trimethoprim [From Bactrim] Allergy Rash/Hives Verified 12/26/17 07:59 codeine AdvReac Vertigo Verified 12/26/17 07:59 diphenhydramine HCl AdvReac Rapid Verified 12/26/17 07:59 [From Benadryl] Heart Rate egg AdvReac Nausea & Verified 12/26/17 07:59 Vomiting Physical Exam Vitals: Vital Signs Temp Pulse Pulse Pulse Resp BP BP 12/26/17 16:00 94 94 16 12/26/17 12:00 94 94 16 12/26/17 11:53 98 F 94 94 16 104/65 12/26/17 08:00 97 16 12/26/17 07:33 98.4 F 97 16 109/72 12/26/17 06:27 97.9 F 93 14 105/69 12/26/17 05:25 97.9 F 88 14 96/57 12/26/17 04:51 84 12/26/17 04:37 97.8 F 94 16 106/72 12/26/17 04:27 74 12/26/17 02:51 14 12/26/17 02:49 74 12/26/17 02:43 98.6 F 93 16 125/84 Pulse Ox 12/26/17 16:00 12/26/17 12:00 12/26/17 11:53 95 12/26/17 08:00 12/26/17 07:33 97 12/26/17 06:27 97 12/26/17 05:25 98 12/26/17 04:51 12/26/17 04:37 99 12/26/17 04:27 12/26/17 02:51 12/26/17 02:49 12/26/17 02:43 96 Intake and Output 12/26/17 12/26/17 12/26/17 06:59 14:59 22:59 Intake Total 360 Balance 360 Intake: Oral 360 Other: Voiding Method Toilet Toilet # Voids 1 4 Weight 85.729 kg 84.8 kg Results 12/26/17 08:25 12/26/17 03:10 Cardiac Enzymes 12/26/17 12/26/17 12/26/17 Range/Units 03:10 03:10 08:25 AST 25 (14-36) U/L CK-MB (CK-2) 0.7 0.6 (0.0-2.4) ng/mL Troponin I <0.012 <0.012 (0.000-0.034) ng/mL 12/26/17 Range/Units 15:23 AST (14-36) U/L CK-MB (CK-2) 0.5 (0.0-2.4) ng/mL Troponin I <0.012 (0.000-0.034) ng/mL Coagulation 12/26/17 12/26/17 Range/Units 03:10 11:52 PT 10.7 (9.0-12.0) sec APTT 22.9 61.3 H (22.0-30.0) sec CBC 12/26/17 12/26/17 Range/Units 03:10 08:25 WBC 6.7 (3.8-10.6) k/uL RBC 4.26 (3.80-5.40) m/uL Hgb 13.2 (11.4-16.0) gm/dL Hct 40.3 (34.0-46.0) % Plt Count 225 232 (150-450) k/uL Comprehensive Metabolic Panel 12/26/17 Range/Units 03:10 Sodium 143 (137-145) mmol/L Potassium 4.3 (3.5-5.1) mmol/L Chloride 109 H (98-107) mmol/L Carbon Dioxide 23 (22-30) mmol/L BUN 15 (7-17) mg/dL Creatinine 0.80 (0.52-1.04) mg/dL Glucose 113 H (74-99) mg/dL Calcium 9.4 (8.4-10.2) mg/dL AST 25 (14-36) U/L ALT 22 (9-52) U/L Alkaline Phosphatase 47 (38-126) U/L Total Protein 7.0 (6.3-8.2) g/dL Albumin 3.7 (3.5-5.0) g/dL Intake and Output 12/26/17 12/26/17 12/26/17 06:59 14:59 22:59 Intake Total 360 Balance 360 Intake: Oral 360 Other: Voiding Method Toilet Toilet # Voids 1 4 Weight 85.729 kg 84.8 kg Patient Weight 12/27/17 06:59 Weight 84.8 kg 12/26/17 08:25 12/26/17 03:10
[2017-12-26] MEDS ORDERED: ATORVASTATIN 10 MG TAB PO SCH (21:00)
[2017-12-27] MEDS ORDERED: ASPIRIN 325 MG TAB PO SCH (09:00)
[2017-12-27] MEDS ORDERED: PANTOPRAZOLE 40 MG/10 ML VIAL IVP SCH (09:00)
== END 2017-12-26 17:17 | disposition home or self-care (01) ==
LOC: EC 02:37 → 3OBS 05:52
PROVIDERS: ADMIT Hospitalist; ATTEND Hospitalist
DX: R07.9 Chest pain, unspecified (principal); R00.2 Palpitations; R06.02 Shortness of breath; R11.0 Nausea; R61 Generalized hyperhidrosis; R20.0 Anesthesia of skin; R20.2 Paresthesia of skin; I25.2 Old myocardial infarction; J45.909 Unspecified asthma, uncomplicated; K21.9 Gastro-esophageal reflux disease without esophagitis; F31.9 Bipolar disorder, unspecified; F90.9 Attention-deficit hyperactivity disorder, unspecified type; I10 Essential (primary) hypertension; E78.5 Hyperlipidemia, unspecified; F41.9 Anxiety disorder, unspecified; F43.10 Post-traumatic stress disorder, unspecified; Z79.899 Other long term (current) drug therapy; Z88.5 Allergy status to narcotic agent; Z88.2 Allergy status to sulfonamides; Z88.8 Allergy status to other drugs, medicaments and biological substances; Z88.1 Allergy status to other antibiotic agents; Z91.012 Allergy to eggs; Z87.01 Personal history of pneumonia (recurrent); Z87.442 Personal history of urinary calculi; Z87.09 Personal history of other diseases of the respiratory system; Z87.891 Personal history of nicotine dependence; Z87.440 Personal history of urinary (tract) infections; Z91.14 Patient's other noncompliance with medication regimen; Z80.1 Family history of malignant neoplasm of trachea, bronchus and lung; Z82.0 Family history of epilepsy and other diseases of the nervous system; E66.9 Obesity, unspecified; Z68.29 Body mass index [BMI] 29.0-29.9, adult
CPT/HCPCS: 99285 ×2; 96361 ×3; 96374 ×2; 96375 ×5; 36415; 94640; 93005; 85379; 80053; 82550; 82553; 83690; 83735; 84484; 85025; 85049; 85610; 85730; 71046; G0378; J1644 ×2; J2930; J2405; J1885; C9113

== ENCOUNTER 2017-12-30 14:40 | Emergency (ER) | payer OTHER ==
[2017-12-30 15:06] VITALS: RESP 18; TEMP 97.9
[2017-12-30] MEDS ORDERED: SODIUM CHLORIDE 0.9% 1,000 ML IV STA (16:10)
[2017-12-30] MEDS ORDERED: IPRATROPIUM-ALBUTEROL 3 ML NEB INHALATION STA (16:10)
[2017-12-30 16:40] LABS: Basophils % (A) 0 %; Eosinophils # (A) 0.2 k/uL (0-0.7); Eosinophils % (A) 3 %; HCT 40.9 % (34.0-46.0); HGB 13.6 gm/dL (11.4-16.0); Lymphocytes # (A) 2.6 k/uL (1.0-4.8); Lymphocytes % (A) 36 %; MCHC 33.2 g/dL (31.0-37.0); MCV 93.3 fL (80.0-100.0); Mean Platelet Volume 6.9; Monocytes # (A) 0.4 k/uL (0-1.0); Monocytes % (A) 6 %; Neutrophils # (A) 3.8 k/uL (1.3-7.7); Neutrophils % (A) 53 %; Platelet Count 285 k/uL (150-450); RBC 4.38 m/uL (3.80-5.40); RDW 13.1 % (11.5-15.5); WBC 7.1 k/uL (3.8-10.6)
[2017-12-30 16:45] LABS: Appearance,Urine Cloudy (Clear); Bacteria,Urine Rare /hpf; Bilirubin,Urine Negative (Negative); Blood,Urine Negative (Negative); Color,Urine Light Yellow; Glucose,Urine (UA) Negative (Negative); Ketones,Urine Negative (Negative); Leukocyte Esterase,Urine Small (Negative); Mucus,Urine Rare /hpf; Nitrite,Urine Negative (Negative); PH, Urine 6.5 (5.0-8.0); Protein,Urine Negative (Negative); RBC,Urine 3 /hpf (0-5); Specific Gravity,Urine 1.014 (1.001-1.035); Squamous Epithelial Cell,Urine 35 /hpf (0-4); Urobilinogen,Urine <2.0 mg/dL (<2.0); WBC,Urine 1 /hpf (0-5)
[2017-12-30 16:47] LABS: INR 1.1 (<1.2); Partial Thromboplastin Time 22.7 sec (22.0-30.0); Prothrombin Time 10.4 sec (9.0-12.0)
[2017-12-30 16:50] LABS: ALT 27 U/L (9-52); AST 30 U/L (14-36); Albumin 3.8 g/dL (3.5-5.0); Alkaline Phosphatase 54 U/L (38-126); Anion Gap 10 mmol/L; Blood Urea Nitrogen 15 mg/dL (7-17); Calcium 9.2 mg/dL (8.4-10.2); Carbon Dioxide 24 mmol/L (22-30); Chloride 106 mmol/L (98-107); Glucose 91 mg/dL (74-99); Sodium 140 mmol/L (137-145); Total Bilirubin 0.3 mg/dL (0.2-1.3)
--- NOTE | 2017-12-30 16:50 | XR ---
EXAMINATION TYPE: XR chest 2V DATE OF EXAM: 12/30/2017 COMPARISON: 12/26/2017 HISTORY: Chest pain TECHNIQUE: Frontal and lateral views of the chest are obtained. FINDINGS: Heart and mediastinum are normal. Lungs are clear. Diaphragm is normal. Bony thorax is int act. IMPRESSION: Normal chest. No change.
[2017-12-30 17:00] LABS: Creatine Kinase 72 U/L (30-135)
[2017-12-30 17:13] VITALS: PULSE 98
[2017-12-30 17:13] LABS: Creatine Kinase MB 0.7 ng/mL (0.0-2.4); Troponin I <0.012 ng/mL (0.000-0.034)
--- NOTE | 2017-12-30 17:23 | ED ---
Chest Pain HPI - General Chief Complaint: Chest Pain Stated Complaint: SOB chest pain Time Seen by Provider: 12/30/17 15:58 Source: patient, RN notes reviewed, old records reviewed Mode of arrival: ambulatory Limitations: no limitations - History of Present Illness Initial Comments: 32-year-old female presents emergency room chart complaint of chest pain for the past 6 hours as well as cough in terms of breath. Patient was recently admitted in had a full cardiac evaluation. Repeat troponins were negative at that time. She was discharged 2 days ago. Denies any fever or chills. She reports her cough is nonproductive.Patient denies any recent fever, chills, back pain, abdominal pain, nausea vomiting, numbness or tingling, dysuria or hematuria, constipation or diarrhea, headaches or visual changes, or any other current symptoms - Related Data Home Medications Medication Instructions Recorded Confirmed Metoprolol Tartrate 12.5 mg PO BID 02/24/17 12/30/17 Ranitidine HCl [Zantac] 150 mg PO BID 08/12/17 12/30/17 Atorvastatin [Lipitor] 10 mg PO HS 12/14/17 12/30/17 SUMAtriptan SUCCINATE [Imitrex] 100 mg PO DAILY PRN 12/14/17 12/30/17 Sertraline [Zoloft] 50 mg PO DAILY 12/14/17 12/30/17 ARIPiprazole [Abilify] 2 mg PO DAILY 12/26/17 12/30/17 Previous Rx's Medication Instructions Recorded Escitalopram [Lexapro] 10 mg PO DAILY #14 tab 11/23/17 Ibuprofen [Motrin] 600 mg PO Q8HR PRN #20 tab 12/09/17 Acetaminophen-Codeine 300-30mg 1 tab PO Q8H PRN #10 tablet 12/14/17 [Tylenol #3] Albuterol Inhaler [Ventolin Hfa 1 - 2 puff INHALATION Q6HR PRN #1 12/30/17 Inhaler] inhaler Amoxicillin 500 mg PO Q12HR #20 cap 12/30/17 methylPREDNISolone Dose Pack 4 mg PO DIRECTED #21 package 12/30/17 [Medrol Dose Pack] Allergies Allergy/AdvReac Type Severity Reaction Status Date / Time azithromycin Allergy Rash/Hives Verified 12/30/17 16:43 hydrocodone Allergy Rash/Hives Verified 12/30/17 16:43 Quinolones Allergy Rash/Hives Verified 12/30/17 16:43 sulfamethoxazole Allergy Rash/Hives Verified 12/30/17 16:43 [From Bactrim] tramadol Allergy Rash/Hives Verified 12/30/17 16:43 trimethoprim [From Bactrim] Allergy Rash/Hives Verified 12/30/17 16:43 codeine AdvReac Vertigo Verified 12/30/17 16:43 diphenhydramine HCl AdvReac Rapid Verified 12/30/17 16:43 [From Benadryl] Heart Rate egg AdvReac Nausea & Verified 12/30/17 16:43 Vomiting Review of Systems ROS Statement: Those systems with pertinent positive or pertinent negative responses have been documented in the HPI. ROS Other: All systems not noted in ROS Statement are negative. EKG Findings - EKG Comments: EKG Findings:: EKG showed a low voltage QRS and left anterior fascicular block. Ventricular rate of 89 bpm. : 54 ms. QRS ration 100 ms. QTQTC 370/459 ms. 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 History of Any Multi-Drug Resistant Organisms: None Reported Past Surgical History: Cholecystectomy, Tubal Ligation Additional Past Surgical History / Comment(s): Tilt table test, wisdom teeth extraction. Past Anesthesia/Blood Transfusion Reactions: No Reported Reaction Additional Past Anesthesia/Blood Transfusion Reaction / Comment(s): had blood transfusion age 16(lost a baby)-no reactin to blood Past Psychological History: ADD/ADHD, Anxiety, Bipolar, Depression, PTSD Smoking Status: Former smoker Past Alcohol Use History: None Reported Past Drug Use History: None Reported - Past Family History Father Family Medical History: Cancer Additional Family Medical History / Comment(s): Father at age 61 from lung CA Mother Family Medical History: Seizure Disorder Additional Family Medical History / Comment(s): Mother is alive with history of bipolar/schitzophrenia Brother(s) Additional Family Medical History / Comment(s): She has one half brother that abuses cocaine and methamphetamines. She does not have any contact with him. Patient has 1 sister with no major medical problems. Patient does not have any children. General Exam - General Exam Comments Initial Comments: 32-year-old female. Alert and oriented. No distress. Limitations: no limitations General appearance: alert, in no apparent distress Head exam: Present: atraumatic, normocephalic, normal inspection Eye exam: Present: normal appearance, PERRL, EOMI. Absent: scleral icterus, conjunctival injection, periorbital swelling ENT exam: Present: normal exam, mucous membranes moist Neck exam: Present: normal inspection. Absent: tenderness, meningismus, lymphadenopathy Respiratory exam: Present: normal lung sounds bilaterally, wheezes. Absent: respiratory distress, rales, rhonchi, stridor Cardiovascular Exam: Present: regular rate, normal rhythm, normal heart sounds. Absent: systolic murmur, diastolic murmur, rubs, gallop, clicks GI/Abdominal exam: Present: soft, normal bowel sounds. Absent: distended, tenderness, guarding, rebound, rigid Extremities exam: Present: normal inspection, full ROM, normal capillary refill. Absent: tenderness, pedal edema, joint swelling, calf tenderness Back exam: Present: normal inspection Neurological exam: Present: alert, oriented X3, CN II-XII intact Course Vital Signs 12/30/17 12/30/17 12/30/17 15:03 16:19 16:22 Temperature 97.9 F Pulse Rate 114 H 99 106 H Respiratory 18 Rate Blood Pressure 124/70 O2 Sat by Pulse 100 Oximetry 12/30/17 12/30/17 17:12 17:58 Temperature Pulse Rate 98 98 Respiratory 18 18 Rate Blood Pressure 105/62 110/67 O2 Sat by Pulse 99 99 Oximetry Chest Pain MDM - MDM 32-year-old female presents with chest pain for the past 6 hours as well as a productive cough. She has some minor wheezing noted. Recently admitted for chest pain. Negative troponins at that time. Patient has no elevations in her troponin. EKG shows no acute changes. Chest x-ray was normal. She does have a significant cough. We'll to the patient for bronchitis with steroids and antibiotics. Discussed appropriate follow-up. All questions answered return parameters were discussed. Disposition Clinical Impression: Bronchitis Disposition: HOME SELF-CARE Condition: Good Instructions: Acute Bronchitis (ED) Additional Instructions: Patient advised to follow-up with primary care provider. Take the medications as prescribed. Return to the emergency department if any alarming signs or symptoms occur. Prescriptions: Albuterol Inhaler [Ventolin Hfa Inhaler] 1 - 2 puff INHALATION Q6HR PRN #1 inhaler PRN Reason: Shortness Of Breath Amoxicillin 500 mg PO Q12HR #20 cap methylPREDNISolone Dose Pack [Medrol Dose Pack] 4 mg PO DIRECTED #21 package Referrals: Cecile Wright MD [Primary Care Provider] - 1-2 days Time of Disposition: 17:24
[2017-12-30 17:58] VITALS: BP 110/67
== END 2017-12-30 17:58 | disposition home or self-care (01) ==
LOC: EC 14:40
DX: J40 Bronchitis, not specified as acute or chronic (principal); K21.9 Gastro-esophageal reflux disease without esophagitis; E78.5 Hyperlipidemia, unspecified; I10 Essential (primary) hypertension; I25.2 Old myocardial infarction; F41.9 Anxiety disorder, unspecified; F32.9 Major depressive disorder, single episode, unspecified; F43.10 Post-traumatic stress disorder, unspecified; F90.9 Attention-deficit hyperactivity disorder, unspecified type; Z87.891 Personal history of nicotine dependence; Z79.52 Long term (current) use of systemic steroids; Z79.899 Other long term (current) drug therapy; Z88.1 Allergy status to other antibiotic agents; Z88.5 Allergy status to narcotic agent; Z88.2 Allergy status to sulfonamides; Z88.6 Allergy status to analgesic agent; Z88.8 Allergy status to other drugs, medicaments and biological substances; Z91.012 Allergy to eggs
CPT/HCPCS: 36415; 71046; 80053; 81001; 82550; 82553; 84484; 85025; 85610; 85730; 93005; 94640; 99285

== ENCOUNTER 2018-01-01 18:33 | Emergency (ER) | payer OTHER ==
[2018-01-01 19:15] VITALS: RESP 18
[2018-01-01] MEDS ORDERED: IPRATROPIUM-ALBUTEROL 3 ML NEB INHALATION STA (20:48)
--- NOTE | 2018-01-01 21:08 | XR ---
EXAMINATION TYPE: XR chest 2V DATE OF EXAM: 01/01/2018 COMPARISON: 12/30/2017 HISTORY: Dyspnea TECHNIQUE: Frontal and lateral views of the chest are obtained. FINDINGS: Heart and mediastinum are normal. Lungs are clear. Diaphragm is normal. Bony thorax appear s normal. IMPRESSION: Normal chest. No change.
--- NOTE | 2018-01-01 21:32 | ED ---
General Adult HPI - General Chief complaint: Shortness of Breath Stated complaint: pneumonia Time Seen by Provider: 01/01/18 20:36 Source: patient, EMS, RN notes reviewed Mode of arrival: EMS Limitations: no limitations - History of Present Illness Initial comments: This is a 32-year-old female who presents to the emergency department with chief complaint of cough 1 week. Patient states that cough has been productive of green phlegm. She states that her lungs hurt. Patient was seen here 2 days ago and diagnosed with bronchitis. She was discharged with amoxicillin and steroids. She states that she has been taking these medications at home. Patient presents today with no improvement of her symptoms. She denies any fevers or chills, chest pain, abdominal pain, nausea or vomiting, diarrhea or constipation. Patient does state that she has been feeling a little bit short of breath and was told to come back to the emergency department if symptoms do not improve. Patient requests a breathing treatment and a chest x-ray. - Related Data Home Medications Medication Instructions Recorded Confirmed Metoprolol Tartrate 12.5 mg PO BID 02/24/17 01/01/18 Ranitidine HCl [Zantac] 150 mg PO BID 08/12/17 01/01/18 Atorvastatin [Lipitor] 10 mg PO HS 12/14/17 01/01/18 SUMAtriptan SUCCINATE [Imitrex] 100 mg PO DAILY PRN 12/14/17 01/01/18 Sertraline [Zoloft] 50 mg PO DAILY 12/14/17 01/01/18 ARIPiprazole [Abilify] 2 mg PO DAILY 12/26/17 01/01/18 Previous Rx's Medication Instructions Recorded Escitalopram [Lexapro] 10 mg PO DAILY #14 tab 11/23/17 Ibuprofen [Motrin] 600 mg PO Q8HR PRN #20 tab 12/09/17 Acetaminophen-Codeine 300-30mg 1 tab PO Q8H PRN #10 tablet 12/14/17 [Tylenol #3] Albuterol Inhaler [Ventolin Hfa 1 - 2 puff INHALATION Q6HR PRN #1 12/30/17 Inhaler] inhaler Amoxicillin 500 mg PO Q12HR #20 cap 12/30/17 methylPREDNISolone Dose Pack 4 mg PO DIRECTED #21 package 12/30/17 [Medrol Dose Pack] Allergies Allergy/AdvReac Type Severity Reaction Status Date / Time azithromycin Allergy Rash/Hives Verified 01/01/18 20:38 hydrocodone Allergy Rash/Hives Verified 01/01/18 20:38 Quinolones Allergy Rash/Hives Verified 01/01/18 20:38 sulfamethoxazole Allergy Rash/Hives Verified 01/01/18 20:38 [From Bactrim] tramadol Allergy Rash/Hives Verified 01/01/18 20:38 trimethoprim [From Bactrim] Allergy Rash/Hives Verified 01/01/18 20:38 codeine AdvReac Vertigo Verified 01/01/18 20:38 diphenhydramine HCl AdvReac Rapid Verified 01/01/18 20:38 [From Benadryl] Heart Rate egg AdvReac Nausea & Verified 01/01/18 20:38 Vomiting Review of Systems ROS Statement: Those systems with pertinent positive or pertinent negative responses have been documented in the HPI. ROS Other: All systems not noted in ROS Statement are negative. 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 History of Any Multi-Drug Resistant Organisms: None Reported Past Surgical History: Cholecystectomy, Tubal Ligation Additional Past Surgical History / Comment(s): Tilt table test, wisdom teeth extraction. Past Anesthesia/Blood Transfusion Reactions: No Reported Reaction Additional Past Anesthesia/Blood Transfusion Reaction / Comment(s): had blood transfusion age 16(lost a baby)-no reactin to blood Past Psychological History: ADD/ADHD, Anxiety, Bipolar, Depression, PTSD Smoking Status: Former smoker Past Alcohol Use History: None Reported Past Drug Use History: None Reported - Past Family History Father Family Medical History: Cancer Additional Family Medical History / Comment(s): Father at age 61 from lung CA Mother Family Medical History: Seizure Disorder Additional Family Medical History / Comment(s): Mother is alive with history of bipolar/schitzophrenia Brother(s) Additional Family Medical History / Comment(s): She has one half brother that abuses cocaine and methamphetamines. She does not have any contact with him. Patient has 1 sister with no major medical problems. Patient does not have any children. General Exam - General Exam Comments Initial Comments: General: Awake and alert, well-developed; in no apparent distress. HEENT: Head atraumatic, normocephalic. Pupils are equal, round and reactive to light. Extraocular movements intact. Oropharynx moist without erythema or exudate. Neck: Supple. Normal ROM. Cardiovascular: Regular rate and rhythm. No murmurs, rubs or gallops. Chest symmetrical. Respiratory: Lungs clear to auscultation bilaterally. No wheezes, rales or rhonchi. Normal respiratory effort with no use of accessory muscles. Musculoskeletal: Normal ROM, no tenderness bilateral upper and lower extremities. Ambulating normally. Skin: [place], warm and dry without rashes or lesions. Neurological: Alert and oriented x3. CN II-XII grossly intact. Speech is fluent and answers are appropriate. No focal neuro deficits. Psychiatric: Normal mood and affect. No overt signs of depression or anxiety noted. Limitations: no limitations Course Vital Signs 01/01/18 01/01/18 01/01/18 19:12 21:09 21:18 Temperature 98.0 F 98.4 F Pulse Rate 109 H 97 100 Respiratory 18 18 Rate Blood Pressure 107/76 102/65 O2 Sat by Pulse 98 96 Oximetry Medical Decision Making - Medical Decision Making 32-year-old female presents to the emergency department with chief complaint of cough. Patient was diagnosed with bronchitis 2 days ago and started on amoxicillin and steroids. Vital signs are stable and patient is afebrile. Lungs are clear to auscultation bilaterally. Patient did receive a breathing treatment while in the emergency department. Repeat chest x-ray revealed no acute abnormalities. Patient will be discharged home at this time. - Radiology Data Radiology results: report reviewed Chest x-ray impression: Normal chest. No change. Disposition Clinical Impression: Bronchitis Disposition: HOME SELF-CARE Condition: Good Instructions: Acute Bronchitis (ED) Additional Instructions: Please continue to take medications as prescribed. Please follow up with primary care provider within 1-2 days. Return to emergency department if symptoms should worsen or any concerns arise. Referrals: Cecile Wright MD [Primary Care Provider] - 1-2 days Time of Disposition: 21:29
[2018-01-01 21:45] VITALS: BP 112/70; PULSE 107; TEMP 98.2
== END 2018-01-01 21:45 | disposition home or self-care (01) ==
LOC: EC 18:33
DX: J40 Bronchitis, not specified as acute or chronic (principal); K21.9 Gastro-esophageal reflux disease without esophagitis; E78.5 Hyperlipidemia, unspecified; I10 Essential (primary) hypertension; F90.9 Attention-deficit hyperactivity disorder, unspecified type; F31.9 Bipolar disorder, unspecified; F41.9 Anxiety disorder, unspecified; F43.10 Post-traumatic stress disorder, unspecified; Z87.891 Personal history of nicotine dependence; Z79.899 Other long term (current) drug therapy; Z88.1 Allergy status to other antibiotic agents; Z88.5 Allergy status to narcotic agent; Z88.8 Allergy status to other drugs, medicaments and biological substances; Z88.6 Allergy status to analgesic agent; Z91.012 Allergy to eggs
CPT/HCPCS: 71046; 94640; 99285

== ENCOUNTER 2018-01-08 16:30 | Emergency (ER) | payer OTHER ==
[2018-01-08 17:18] VITALS: BP 107/73; PULSE 94; RESP 18; TEMP 98.7
[2018-01-08] MEDS ORDERED: IBUPROFEN 600 MG TAB PO STA (17:26)
--- NOTE | 2018-01-08 17:34 | ED ---
General Adult HPI - General Chief complaint: Extremity Injury, Upper Stated complaint: RT HAND INJURY Time Seen by Provider: 01/08/18 17:22 Source: patient, RN notes reviewed Mode of arrival: ambulatory Limitations: no limitations - History of Present Illness Initial comments: 32-year-old female presents to the emergency department for a chief complaint of right wrist pain x5 days. Patient states that 5 days ago she hit her hand on a wooden table when a cat scared her. Patient denies any other injuries. Patient denies pain in the hand or elbow. Patient denies falling or hitting her head. She has not tried Motrin, Tylenol or icing the wrist. Patient has no other complaints at this time including shortness of breath, chest pain, abdominal pain, nausea or vomiting. - Related Data Home Medications Medication Instructions Recorded Confirmed Metoprolol Tartrate 12.5 mg PO BID 02/24/17 01/01/18 Ranitidine HCl [Zantac] 150 mg PO BID 08/12/17 01/01/18 Atorvastatin [Lipitor] 10 mg PO HS 12/14/17 01/01/18 SUMAtriptan SUCCINATE [Imitrex] 100 mg PO DAILY PRN 12/14/17 01/01/18 Sertraline [Zoloft] 50 mg PO DAILY 12/14/17 01/01/18 ARIPiprazole [Abilify] 2 mg PO DAILY 12/26/17 01/01/18 Previous Rx's Medication Instructions Recorded Escitalopram [Lexapro] 10 mg PO DAILY #14 tab 11/23/17 Ibuprofen [Motrin] 600 mg PO Q8HR PRN #20 tab 12/09/17 Acetaminophen-Codeine 300-30mg 1 tab PO Q8H PRN #10 tablet 12/14/17 [Tylenol #3] Albuterol Inhaler [Ventolin Hfa 1 - 2 puff INHALATION Q6HR PRN #1 12/30/17 Inhaler] inhaler Amoxicillin 500 mg PO Q12HR #20 cap 12/30/17 methylPREDNISolone Dose Pack 4 mg PO DIRECTED #21 package 12/30/17 [Medrol Dose Pack] Allergies Allergy/AdvReac Type Severity Reaction Status Date / Time azithromycin Allergy Rash/Hives Verified 01/08/18 17:15 hydrocodone Allergy Rash/Hives Verified 01/08/18 17:15 Quinolones Allergy Rash/Hives Verified 01/08/18 17:15 sulfamethoxazole Allergy Rash/Hives Verified 01/08/18 17:15 [From Bactrim] tramadol Allergy Rash/Hives Verified 01/08/18 17:15 trimethoprim [From Bactrim] Allergy Rash/Hives Verified 01/08/18 17:15 codeine AdvReac Vertigo Verified 01/08/18 17:15 diphenhydramine HCl AdvReac Rapid Verified 01/08/18 17:15 [From Benadryl] Heart Rate egg AdvReac Nausea & Verified 01/08/18 17:15 Vomiting Review of Systems ROS Statement: Those systems with pertinent positive or pertinent negative responses have been documented in the HPI. ROS Other: All systems not noted in ROS Statement are negative. 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 History of Any Multi-Drug Resistant Organisms: None Reported Past Surgical History: Cholecystectomy, Tubal Ligation Additional Past Surgical History / Comment(s): Tilt table test, wisdom teeth extraction. Past Anesthesia/Blood Transfusion Reactions: No Reported Reaction Additional Past Anesthesia/Blood Transfusion Reaction / Comment(s): had blood transfusion age 16(lost a baby)-no reactin to blood Past Psychological History: ADD/ADHD, Anxiety, Bipolar, Depression, PTSD Smoking Status: Former smoker Past Alcohol Use History: None Reported Past Drug Use History: None Reported - Past Family History Father Family Medical History: Cancer Additional Family Medical History / Comment(s): Father at age 61 from lung CA Mother Family Medical History: Seizure Disorder Additional Family Medical History / Comment(s): Mother is alive with history of bipolar/schitzophrenia Brother(s) Additional Family Medical History / Comment(s): She has one half brother that abuses cocaine and methamphetamines. She does not have any contact with him. Patient has 1 sister with no major medical problems. Patient does not have any children. General Exam Limitations: no limitations Respiratory exam: Present: normal lung sounds bilaterally. Absent: respiratory distress, wheezes, rales, rhonchi, stridor Cardiovascular Exam: Present: regular rate, normal rhythm, normal heart sounds. Absent: systolic murmur, diastolic murmur, rubs, gallop, clicks Extremities exam: Present: tenderness (to the vental aspect of the r wrist), normal capillary refill (cap refill < 2 seconds in RUE), other (radial pulse 2 + on RUE). Absent: full ROM (limited flexion and extension of R wrist.), joint swelling (No hematomas or ecchymosis noted on the r wrist) Course Vital Signs 01/08/18 17:15 Temperature 98.7 F Pulse Rate 94 Respiratory 18 Rate Blood Pressure 107/73 O2 Sat by Pulse 98 Oximetry Procedures - Procedures Initial comment: Neurovascular intact before splint application Indication: Scaphoid tenderness in the right hand Type: Short arm thumb spica Wounds: no abrasions or lacerations underneath splint Neurovascular status: patient has sensation and movement of digits extending outside the splint, there is no cyanosis, capillary refill < 2 seconds Follow-up: patient given number for orthopedics and instructed to phone to make an appointment. Patient aware she can return to the Emergency Department if any difficulties. Medical Decision Making - Medical Decision Making 32-year-old female presents to the emergency department for pain in the right wrist 5 days. Patient states that she had it against a wooden table when a cat scared her. She has not tried Motrin and Tylenol or icing exam he. Patient has tenderness of the ventral right wrist on exam and limited flexion and extension. Patient does have some scaphoid tenderness as well in RUE. Neurovascular intact in the right upper extremity. Patient has no tenderness of the hand or fingers or forearm/elbow. Patient was given Motrin in the emergency department due to her request for pain medication. X-ray of the right wrist and hand demonstrate no acute fractures or dislocations. However as patient has snuffbox tenderness she will be splinted in a thumb spica. She is to follow-up with orthopedics in one to 2 days. She is to return to the emergency Department if she has any worsening symptoms. She'll take Motrin and Tylenol for pain relief. Disposition Clinical Impression: Wrist pain, acute Disposition: HOME SELF-CARE Condition: Good Instructions: RICE Therapy (ED) Additional Instructions: Please follow up with orthopedics in one to 2 days. You may take Tylenol and Motrin for pain relief. Please return to the emergency department if symptoms worsen. Is patient prescribed a controlled substance at discharge?: No Referrals: Cecile Wright MD [Primary Care Provider] - 1-2 days Ceasar Arzola DO [Doctor of Osteopathic Medicine] - 1-2 days Time of Disposition: 18:23
--- NOTE | 2018-01-08 17:54 | XR ---
EXAMINATION TYPE: XR wrist complete RT DATE OF EXAM: 01/08/2018 CLINICAL HISTORY: Pain after injury today. TECHNIQUE: Frontal, lateral, scaphoid, and oblique images of the right wrist are obtained. COMPARISON: Right hand x-ray October 14, 2017 FINDINGS: There is no acute fracture/dislocation evident in the right wrist. The joint spaces in th e right wrist appear within normal limits. The overlying soft tissue appears unremarkable. IMPRESSION: There is no acute fracture or dislocation in the right wrist.
== END 2018-01-08 18:38 | disposition home or self-care (01) ==
LOC: EC 16:30
DX: M25.531 Pain in right wrist (principal); K21.9 Gastro-esophageal reflux disease without esophagitis; I10 Essential (primary) hypertension; E78.5 Hyperlipidemia, unspecified; I25.2 Old myocardial infarction; F31.9 Bipolar disorder, unspecified; F41.9 Anxiety disorder, unspecified; F43.10 Post-traumatic stress disorder, unspecified; Z87.891 Personal history of nicotine dependence; Z79.899 Other long term (current) drug therapy; Z88.1 Allergy status to other antibiotic agents; Z88.2 Allergy status to sulfonamides; Z88.5 Allergy status to narcotic agent; Z88.8 Allergy status to other drugs, medicaments and biological substances; Z91.012 Allergy to eggs; W22.03XA Walked into furniture, initial encounter
CPT/HCPCS: 29125; 99283

== ENCOUNTER 2018-01-15 20:02 | Observation (INO) | payer OTHER ==
--- NOTE | 2018-01-15 20:37 | ED ---
General Adult HPI - General Chief complaint: Chest Pain Stated complaint: chest pain Time Seen by Provider: 01/15/18 20:11 Source: patient, RN notes reviewed, old records reviewed Mode of arrival: ambulatory Limitations: no limitations - History of Present Illness Initial comments: This is a 30-year-old female the ER for evaluation. Patient resents ER today for evaluation regarding chest pain. Patient is anterior heaviness chest pain, 3 hours prior to arrival positive nausea diaphoresis, patient states she feels occasional shortness of breath or patient has history of drug abuse, history of psychiatric illness, multiple episodes ER visits for chest pain. Patient states chest pain is continuing, she is very nervous - Related Data Home Medications Medication Instructions Recorded Confirmed Metoprolol Tartrate 12.5 mg PO BID 02/24/17 01/01/18 Ranitidine HCl [Zantac] 150 mg PO BID 08/12/17 01/01/18 Atorvastatin [Lipitor] 10 mg PO HS 12/14/17 01/01/18 SUMAtriptan SUCCINATE [Imitrex] 100 mg PO DAILY PRN 12/14/17 01/01/18 Sertraline [Zoloft] 50 mg PO DAILY 12/14/17 01/01/18 ARIPiprazole [Abilify] 2 mg PO DAILY 12/26/17 01/01/18 Previous Rx's Medication Instructions Recorded Escitalopram [Lexapro] 10 mg PO DAILY #14 tab 11/23/17 Ibuprofen [Motrin] 600 mg PO Q8HR PRN #20 tab 12/09/17 Acetaminophen-Codeine 300-30mg 1 tab PO Q8H PRN #10 tablet 12/14/17 [Tylenol #3] Albuterol Inhaler [Ventolin Hfa 1 - 2 puff INHALATION Q6HR PRN #1 12/30/17 Inhaler] inhaler Amoxicillin 500 mg PO Q12HR #20 cap 12/30/17 methylPREDNISolone Dose Pack 4 mg PO DIRECTED #21 package 12/30/17 [Medrol Dose Pack] Allergies Allergy/AdvReac Type Severity Reaction Status Date / Time azithromycin Allergy Rash/Hives Verified 01/15/18 20:12 hydrocodone Allergy Rash/Hives Verified 01/15/18 20:12 Quinolones Allergy Rash/Hives Verified 01/15/18 20:12 sulfamethoxazole Allergy Rash/Hives Verified 01/15/18 20:12 [From Bactrim] tramadol Allergy Rash/Hives Verified 01/15/18 20:12 trimethoprim [From Bactrim] Allergy Rash/Hives Verified 01/15/18 20:12 codeine AdvReac Vertigo Verified 01/15/18 20:12 diphenhydramine HCl AdvReac Rapid Verified 01/15/18 20:12 [From Benadryl] Heart Rate egg AdvReac Nausea & Verified 01/15/18 20:12 Vomiting Review of Systems ROS Statement: Those systems with pertinent positive or pertinent negative responses have been documented in the HPI. ROS Other: All systems not noted in ROS Statement are negative. 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 History of Any Multi-Drug Resistant Organisms: None Reported Past Surgical History: Cholecystectomy, Tubal Ligation Additional Past Surgical History / Comment(s): Tilt table test, wisdom teeth extraction. Past Anesthesia/Blood Transfusion Reactions: No Reported Reaction Additional Past Anesthesia/Blood Transfusion Reaction / Comment(s): had blood transfusion age 16(lost a baby)-no reactin to blood Past Psychological History: ADD/ADHD, Anxiety, Bipolar, Depression, PTSD Smoking Status: Former smoker Past Alcohol Use History: None Reported Past Drug Use History: None Reported - Past Family History Father Family Medical History: Cancer Additional Family Medical History / Comment(s): Father at age 61 from lung CA Mother Family Medical History: Seizure Disorder Additional Family Medical History / Comment(s): Mother is alive with history of bipolar/schitzophrenia Brother(s) Additional Family Medical History / Comment(s): She has one half brother that abuses cocaine and methamphetamines. She does not have any contact with him. Patient has 1 sister with no major medical problems. Patient does not have any children. General Exam Limitations: no limitations General appearance: alert, in no apparent distress, anxious Head exam: Present: atraumatic, normocephalic, normal inspection Eye exam: Present: normal appearance, PERRL, EOMI. Absent: scleral icterus, conjunctival injection, periorbital swelling ENT exam: Present: normal exam, mucous membranes moist Neck exam: Present: normal inspection. Absent: tenderness, meningismus, lymphadenopathy Respiratory exam: Present: normal lung sounds bilaterally. Absent: respiratory distress, wheezes, rales, rhonchi, stridor Cardiovascular Exam: Present: normal rhythm, tachycardia, normal heart sounds. Absent: systolic murmur, diastolic murmur, rubs, gallop, clicks GI/Abdominal exam: Present: soft, normal bowel sounds. Absent: distended, tenderness, guarding, rebound, rigid Extremities exam: Present: normal inspection, full ROM, normal capillary refill. Absent: tenderness, pedal edema, joint swelling, calf tenderness Back exam: Present: normal inspection Neurological exam: Present: alert, oriented X3, CN II-XII intact Psychiatric exam: Present: normal affect, normal mood Skin exam: Present: warm, dry, intact, normal color. Absent: rash Course Vital Signs 01/15/18 01/15/18 01/15/18 20:10 20:29 20:32 Temperature 98.3 F Pulse Rate 103 H Pulse Rate [ 100 Right] Respiratory 20 14 Rate Blood Pressure 108/70 O2 Sat by Pulse 99 Oximetry EKG Findings - EKG Comments: EKG Findings:: EKG shows normal sinus rhythm rate of 93, WA 152, QRS 80, QTC 447 Medical Decision Making - Medical Decision Making 30 female the ER chest pain, will admit for chest pain observation, patient states director trade wants patient to be evaluated if she ever gets chest pain - Radiology Data Radiology results: report reviewed (Chest x-rays negative), image reviewed Disposition Clinical Impression: Chest pain Disposition: ADMITTED IP TO THIS [facility] Condition: Undetermined Instructions: Chest Pain (ED) Referrals: Cecile Wright MD [Primary Care Provider] - 1-2 days
[2018-01-15] MEDS: NITROGLYCERIN SL TABS 0.4 MG TAB SUBLINGUAL PRN ×2 (20:50→20:51)
[2018-01-15 21:01] LABS: Basophils % (A) 0 %; Eosinophils # (A) 0.2 k/uL (0-0.7); Eosinophils % (A) 2 %; HCT 42.1 % (34.0-46.0); HGB 14.4 gm/dL (11.4-16.0); Lymphocytes # (A) 2.8 k/uL (1.0-4.8); Lymphocytes % (A) 36 %; MCH 31.9 pg (25.0-35.0); MCHC 34.1 g/dL (31.0-37.0); MCV 93.7 fL (80.0-100.0); Mean Platelet Volume 6.8; Monocytes # (A) 0.5 k/uL (0-1.0); Monocytes % (A) 7 %; Neutrophils # (A) 3.9 k/uL (1.3-7.7); Neutrophils % (A) 51 %; Platelet Count 256 k/uL (150-450); RDW 13.1 % (11.5-15.5); WBC 7.7 k/uL (3.8-10.6)
[2018-01-15 21:16] LABS: ALT 38 U/L (9-52); AST 23 U/L (14-36); Albumin 3.8 g/dL (3.5-5.0); Alkaline Phosphatase 65 U/L (38-126); Anion Gap 13 mmol/L; Blood Urea Nitrogen 11 mg/dL (7-17); Calcium 9.7 mg/dL (8.4-10.2); Carbon Dioxide 21 mmol/L (22-30); Chloride 108 mmol/L (98-107); Creatine Kinase 77 U/L (30-135); Glucose 96 mg/dL (74-99); Magnesium 1.9 mg/dL (1.6-2.3); Potassium 4.6 mmol/L (3.5-5.1); Sodium 142 mmol/L (137-145); Total Bilirubin 0.2 mg/dL (0.2-1.3); Total Protein 6.9 g/dL (6.3-8.2)
[2018-01-15 21:18] LABS: INR 1.1 (<1.2); Prothrombin Time 10.3 sec (9.0-12.0)
[2018-01-15] MEDS ORDERED: SODIUM CHLORIDE 0.9% 500 ML IV ONE (21:18)
[2018-01-15 21:27] LABS: Creatine Kinase MB 0.5 ng/mL (0.0-2.4); Troponin I <0.012 ng/mL (0.000-0.034)
--- NOTE | 2018-01-15 21:30 | XR ---
EXAMINATION TYPE: XR chest 2V DATE OF EXAM: 01/15/2018 COMPARISON: 01/01/2018 HISTORY: Chest pain TECHNIQUE: Frontal and lateral views of the chest are obtained. FINDINGS: There is no heart failure nor confluent pneumonic infiltrate. There is some mild reticular density in the left lung. Heart size is normal. There are chest leads. Costophrenic angles are clear . Bony thorax is intact. IMPRESSION: Minimal reticular density in the left lung consistent with a new mild interstitial infil trate compared to last exam. Normal Heart.
[2018-01-15] MEDS: METOPROLOL TARTRATE 50 MG TAB PO SCH (21:33)
[2018-01-15 22:10] VITALS: BMI 29.4
[2018-01-15] MEDS ORDERED: ALBUTEROL INHALER 60 PUFF/8 GM INHALER INHALATION PRN (22:27)
[2018-01-15] MEDS ORDERED: Acetaminophen-Codeine 300-30mg TAB PO PRN (22:27)
[2018-01-15] MEDS ORDERED: SUMAtriptan SUCCINATE 50 MG TAB PO PRN (22:27)
[2018-01-15] MEDS ORDERED: ALPRAZolam 0.25 MG TAB PO PRN (22:28)
[2018-01-15] MEDS: FAMOTIDINE 20 MG TAB PO SCH (23:04)
[2018-01-15] MEDS: TEMAZEPAM 15 MG CAP PO PRN (23:06)
[2018-01-16 03:07] LABS: Cholesterol 153 mg/dL (<200); Creatine Kinase 59 U/L (30-135); HDL Cholesterol 48 mg/dL (40-60); LDL Cholesterol,Calculated 83 mg/dL (0-99); Triglycerides 109 mg/dL (<150)
[2018-01-16 03:21] LABS: Creatine Kinase MB 0.4 ng/mL (0.0-2.4); Troponin I <0.012 ng/mL (0.000-0.034)
[2018-01-16] MEDS ORDERED: ALBUTEROL NEBULIZED 2.5 MG/3 ML INHALATION PRN (07:42)
[2018-01-16] MEDS: FAMOTIDINE 20 MG TAB PO SCH ×2 (08:19→20:16)
[2018-01-16] MEDS: IBUPROFEN 600 MG TAB PO PRN ×2 (08:19→17:54)
[2018-01-16] MEDS ORDERED: ATORVASTATIN 80 MG TAB PO SCH (09:00)
[2018-01-16] MEDS ORDERED: ESCITALOPRAM 10 MG TAB PO SCH (09:00)
[2018-01-16] MEDS ORDERED: ASPIRIN 325 MG TAB PO SCH (09:00)
[2018-01-16] MEDS ORDERED: ARIPiprazole 10 MG TAB PO SCH (09:00)
[2018-01-16 09:03] LABS: Creatine Kinase 53 U/L (30-135)
[2018-01-16 09:13] LABS: Creatine Kinase MB 0.4 ng/mL (0.0-2.4); Troponin I <0.012 ng/mL (0.000-0.034)
--- NOTE | 2018-01-16 11:18 | CONS ---
CONSULTATION CHIEF COMPLAINT: Chest pain. 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 It initially started with an anxiety episode and then while she was sitting and trying to draw which is how she usually deals with her anxiety she had an episode of chest pain. It was sharp. Precordial, unassociated with diaphoresis, unrelated to exertion. It lasted for several hours. She was concerned, came to the ER and got admitted. EKG shows sinus bradycardia. There are no acute ST-T wave changes noted. Cardiac enzymes have been negative. Given the unexplained chest pain, I advised the patient to undergo a stress test. If this is normal, she can be discharged home. If this is abnormal, we will consider further workup. PAST MEDICAL HISTORY: Significant for hypertension and dyslipidemia. CURRENT MEDICATIONS: Current medications include Motrin, Ventolin, Tylenol No. 3, Abilify, Imitrex, Zantac, metoprolol, Lexapro, and Lipitor. ALLERGIES: There are multiple drug allergies including ZITHROMAX, HYDROCODONE, QUINOLONE, TRAMADOL, BACTRIM, CODEINE, INFLUENZA. FAMILY HISTORY: Negative for premature coronary artery disease. SOCIAL HISTORY: Negative for current smoking, EtOH abuse, or drug abuse. REVIEW OF SYSTEMS: HEENT is unremarkable. CARDIAC: As described above. RESPIRATORY: Negative. GI: Negative. GENITOURINARY: Negative. ALLERGY/IMMUNOLOGY: Negative. MUSCULOSKELETAL: Significant for aches and pains. PSYCHOSOCIAL: Significant for anxiety and prior history of drug abuse. Rest of the system review is not relevant. PHYSICAL EXAMINATION: On exam, comfortable at rest. Vital signs are stable. There is no jugular venous distention. Carotid upstroke is normal. There is no bruit. Chest is clear to auscultation and percussion. Heart exam reveals first and second heart sounds. No gallop. No murmur. No rub. Abdomen is soft, nontender. Examination of extremities did not reveal edema. Peripheral pulses are felt. EKG is within normal limits. Cardiac enzymes have been normal. ASSESSMENT: Precordial chest pain, atypical, probably noncardiac in origin. I will obtain a stress test. If this is negative, she can be discharged home. She does not require further cardiac followup at this time. MMODL / IJN: [id number] /
--- NOTE | 2018-01-16 12:36 | ECHOS ---
STRESS ECHOCARDIOGRAM INDICATIONS: Chest pain. BASELINE HEART RATE: 99 BASELINE BLOOD PRESSURE: 101/62 MAXIMUM HEART RATE: 188 MAXIMUM BLOOD PRESSURE: 119/55 85% MPHR: 160 100% MPHR: 188 METS: 8.0 MAXIMUM STAGE REACHED: 3 TOTAL EXERCISE TIME: 7:30 CLINICAL INFORMATION: Baseline EKG shows sinus rhythm, poor R-wave progression. Patient exercised on Silas protocol for a total of 7.5 minutes achieving 8 METS, 100% of predicted maximal heart rate without chest pain or diagnostic ST-segment depression. Baseline echo shows normal left ventricular size, wall motion systolic function. Postexercise there is normal hyperdynamic response of all segments of myocardium noted. CONCLUSION: 1. Above-average exercise tolerance. 2. Inconclusive EKG part of the stress test due to baseline EKG abnormalities. 3. Negative stress echo. MMODL / IJN: [id number] /
[2018-01-16] MEDS: METOPROLOL TARTRATE 50 MG TAB PO SCH (12:51)
--- NOTE | 2018-01-16 15:14 | P.HPIM ---
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 History of Any Multi-Drug Resistant Organisms: None Reported Past Surgical History: Cholecystectomy, Tubal Ligation Additional Past Surgical History / Comment(s): Tilt table test, wisdom teeth extraction. Past Anesthesia/Blood Transfusion Reactions: No Reported Reaction Additional Past Anesthesia/Blood Transfusion Reaction / Comment(s): had blood transfusion age 16(lost a baby)-no reactin to blood Smoking Status: Former smoker - Past Family History Father Family Medical History: Cancer Additional Family Medical History / Comment(s): Father at age 61 from lung CA Mother Family Medical History: Seizure Disorder Additional Family Medical History / Comment(s): Mother is alive with history of bipolar/schitzophrenia Brother(s) Additional Family Medical History / Comment(s): She has one half brother that abuses cocaine and methamphetamines. She does not have any contact with him. Patient has 1 sister with no major medical problems. Patient does not have any children. Medications and Allergies Home Medications Medication Instructions Recorded Confirmed Type Metoprolol Tartrate 12.5 mg PO BID 02/24/17 01/15/18 History Ranitidine HCl [Zantac] 150 mg PO BID 08/12/17 01/15/18 History Escitalopram [Lexapro] 10 mg PO DAILY #14 tab 11/23/17 01/15/18 Rx Ibuprofen [Motrin] 600 mg PO Q8HR PRN #20 tab 12/09/17 01/15/18 Rx Acetaminophen-Codeine 300-30mg 1 tab PO Q8H PRN #10 tablet 12/14/17 01/15/18 Rx [Tylenol #3] Atorvastatin [Lipitor] 10 mg PO HS 12/14/17 01/15/18 History SUMAtriptan SUCCINATE [Imitrex] 100 mg PO DAILY PRN 12/14/17 01/15/18 History ARIPiprazole [Abilify] 10 mg PO DAILY 12/26/17 01/15/18 History Albuterol Inhaler [Ventolin Hfa 2 puff INHALATION RT-Q6H PRN 01/15/18 01/15/18 History Inhaler] Allergies Allergy/AdvReac Type Severity Reaction Status Date / Time azithromycin Allergy Rash/Hives Verified 01/15/18 20:39 hydrocodone Allergy Rash/Hives Verified 01/15/18 20:39 Quinolones Allergy Rash/Hives Verified 01/15/18 20:39 sulfamethoxazole Allergy Rash/Hives Verified 01/15/18 20:39 [From Bactrim] tramadol Allergy Rash/Hives Verified 01/15/18 20:39 trimethoprim [From Bactrim] Allergy Rash/Hives Verified 01/15/18 20:39 codeine AdvReac Vertigo Verified 01/15/18 20:39 diphenhydramine HCl AdvReac Rapid Verified 01/15/18 20:39 [From Benadryl] Heart Rate egg AdvReac Nausea & Verified 01/15/18 20:39 Vomiting Influenza Virus Vaccines AdvReac Nausea & Verified 01/15/18 21:59 Vomiting Physical Exam Vitals: Vital Signs Temp Pulse Pulse Resp BP BP Pulse Ox 01/16/18 13:09 139 H 01/16/18 12:58 99/65 01/16/18 11:55 98.6 F 120 H 18 93/54 94 L 01/16/18 07:54 98.7 F 93 18 80/53 96 01/16/18 04:00 98.0 F 85 18 82/53 96 01/15/18 22:52 16 01/15/18 22:21 98.3 F 86 16 95/66 95 01/15/18 21:44 99.0 F 88 14 99/61 99 01/15/18 20:58 99.0 F 94 14 94/57 98 01/15/18 20:40 99.9 F H 94 14 114/74 98 01/15/18 20:32 100 01/15/18 20:29 14 01/15/18 20:10 98.3 F 103 H 20 108/70 99 Intake and Output 01/15/18 01/16/18 01/16/18 22:59 06:59 14:59 Intake Total 620 Balance 620 Intake: Oral 420 Other 200 Other: # Voids 1 1 Weight 85.2 kg Constitutional: No acute distress, conversant, pleasant Eyes: Anicteric sclerae, moist conjunctiva, no lid-lag PERRLA ENMT: NC/AT Oropharynx clear, no erythema, exudates Neck: Supple, FROM, no masses, or JVD No carotid bruits No thyromegaly Lungs: Clear to auscultation Clear to percussion Normal respiratory effort, no accessory muscle use Cardiovascular: Heart regular in rate and rhythm, No murmurs, gallops, or rubs No peripheral edema Abdominal: Soft Nontender, no guarding, rebound or rigidity Abdomen moving with respiration Normoactive bowel sounds No hepatomegaly, No splenomegaly No palpable mass No abdominal wall hernia noted Skin: Normal temperature, tone, texture, turgor No induration No subcutaneous nodules No rash, lesions No ulcers Extremities: No digital cyanosis No clubbing Pedal pulses intact and symmetrical Radial pulses intact and symmetrical Normal gait and station No calf tenderness Psychiatric: Alert and oriented to person, place and time Appropriate affect Intact judgement Neuro: Muscles Strength 5/5 in all 4 extremities Sensation to light touch grossly present throughout Cranial nerves II-XII grossly intact No focal sensory deficits Results CBC & Chem 7: 01/15/18 20:54 01/15/18 20:54 Labs: Abnormal Lab Results - Last 24 Hours (Table) 01/15/18 Range/Units 20:54 Chloride 108 H (98-107) mmol/L Carbon Dioxide 21 L (22-30) mmol/L Assessment and Plan Assessment: Assessment -Chest pain, mostly musculoskeletal in -Tachycardia -Hyperlipidemia -Hypertension Hyper-seizure disorder -GERD Plan: Patient presents with chest pain, patient has been evaluated by cardiology team and their input is appreciated, patient status post cardiac stress test echo which was negative, however patient's developing tachycardia and she has some sweaty hands, patient is already started on metoprolol 12.5 by cardiology team, follow-up heart rate, patient states her heart rate usually 120/80 however currently is 99/65, previous blood pressure reading were also noted to be low from previous admissions however patient says her blood pressure usually is higher than this, check EKG Patient says her chest pain which is sharp left sided associated with numbness of the hands is better today with decreased severity from 04/01-12/31
[2018-01-16] MEDS ORDERED: SODIUM CHLORIDE 0.9% 1,000 ML IV SCH (16:00)
[2018-01-16 16:19] VITALS: TEMP 98.3
[2018-01-16 20:07] VITALS: BP 134/80; PULSE 83; RESP 16
[2018-01-16] MEDS ORDERED: METOPROLOL TARTRATE 12.5 MG TAB PO SCH (21:00)
[2018-01-16] MEDS ORDERED: ONDANSETRON 4 MG/2 ML VIAL IVP PRN (21:24)
[2018-01-16] MEDS: TEMAZEPAM 15 MG CAP PO PRN (21:30)
--- NOTE | 2018-01-27 00:55 | P.DS ---
Providers Date of admission: 01/15/18 20:37 Attending physician: Kyle Denton Consults: 01/15/18 20:37 Consult Physician Urgent Consulting Provider: Renny Hernandez Consult Reason/Comments: cp Do you want consulting provider notified?: Yes Primary care physician: Adriana Huber [facility] Course: [age] years old female from [facility] with past medical history of asthma chest pain, GERD, hyperlipidemia, hypertension, pneumonia, seizure disorder, syncope who presents with chest pain pt signed leaving AMA , stating she has family issues as well she was complaining her room was crowded from the family of the other pt Patient Condition at Discharge: Undetermined Plan - Discharge Summary New Discharge Prescriptions: No Action Ranitidine HCl [Zantac] 150 mg PO BID Escitalopram [Lexapro] 10 mg PO DAILY #14 tab Ibuprofen [Motrin] 600 mg PO Q8HR PRN #20 tab PRN Reason: Pain SUMAtriptan SUCCINATE [Imitrex] 100 mg PO DAILY PRN PRN Reason: Migraine Headache Atorvastatin [Lipitor] 10 mg PO HS ARIPiprazole [Abilify] 10 mg PO DAILY Albuterol Inhaler [Ventolin Hfa Inhaler] 2 puff INHALATION RT-Q6H PRN PRN Reason: Shortness Of Breath Acetaminophen Tab [Tylenol] 650 mg PO Q6HR PRN #15 tab PRN Reason: Mild Pain Or Fever > 100.5 Ibuprofen [Motrin] 600 mg PO Q8HR PRN #20 tab PRN Reason: Pain Ondansetron Odt [Zofran ODT] 4 mg PO Q8HR PRN #10 tab PRN Reason: Nausea Discharge Medication List Ranitidine HCl [Zantac] 150 mg PO BID 08/12/17 [History] Escitalopram [Lexapro] 10 mg PO DAILY #14 tab 11/23/17 [Rx] Ibuprofen [Motrin] 600 mg PO Q8HR PRN #20 tab 12/09/17 [Rx] Atorvastatin [Lipitor] 10 mg PO HS 12/14/17 [History] SUMAtriptan SUCCINATE [Imitrex] 100 mg PO DAILY PRN 12/14/17 [History] ARIPiprazole [Abilify] 10 mg PO DAILY 12/26/17 [History] Albuterol Inhaler [Ventolin Hfa Inhaler] 2 puff INHALATION RT-Q6H PRN 01/15/18 [ History] Acetaminophen Tab [Tylenol] 650 mg PO Q6HR PRN #15 tab 01/19/18 [Rx] Ibuprofen [Motrin] 600 mg PO Q8HR PRN #20 tab 01/25/18 [Rx] Ondansetron Odt [Zofran ODT] 4 mg PO Q8HR PRN #10 tab 01/25/18 [Rx] Follow up Appointment(s)/Referral(s): Cecile Wright MD [Primary Care Provider] - 1-2 days Patient Instructions/Handouts: Chest Pain (ED) Discharge Disposition: Left Against Medical Advice
== END 2018-01-16 22:05 | disposition left against medical advice (07) ==
LOC: EC 20:02 → 3OBS 20:37
PROVIDERS: ADMIT Hospitalist; ATTEND Hospitalist
DX: R07.89 Other chest pain (principal); R00.0 Tachycardia, unspecified; G40.909 Epilepsy, unspecified, not intractable, without status epilepticus; K21.9 Gastro-esophageal reflux disease without esophagitis; E78.5 Hyperlipidemia, unspecified; J45.909 Unspecified asthma, uncomplicated; I10 Essential (primary) hypertension; I25.2 Old myocardial infarction; F90.9 Attention-deficit hyperactivity disorder, unspecified type; F43.10 Post-traumatic stress disorder, unspecified; F31.9 Bipolar disorder, unspecified; Z80.1 Family history of malignant neoplasm of trachea, bronchus and lung; Z82.0 Family history of epilepsy and other diseases of the nervous system; Z87.442 Personal history of urinary calculi; Z87.891 Personal history of nicotine dependence; Z79.899 Other long term (current) drug therapy; Z88.5 Allergy status to narcotic agent; Z88.2 Allergy status to sulfonamides; Z88.7 Allergy status to serum and vaccine; Z88.8 Allergy status to other drugs, medicaments and biological substances
CPT/HCPCS: 99285 ×2; 36415; 93351; 80061; 80053; 82550 ×2; 82553 ×2; 83735; 84484 ×2; 85025; 85610; 85730; 71046; G0378 ×2; 93005

== ENCOUNTER 2018-01-17 16:52 | Observation (INO) | payer OTHER ==
[2018-01-17] MEDS ORDERED: SODIUM CHLORIDE 0.9% 1,000 ML IV STA (17:20)
[2018-01-17 17:55] LABS: Basophils % (A) 0 %; Eosinophils # (A) 0.2 k/uL (0-0.7); Eosinophils % (A) 2 %; HCT 42.8 % (34.0-46.0); HGB 14.2 gm/dL (11.4-16.0); Lymphocytes # (A) 2.7 k/uL (1.0-4.8); Lymphocytes % (A) 29 %; MCHC 33.3 g/dL (31.0-37.0); MCV 93.3 fL (80.0-100.0); Mean Platelet Volume 6.8; Monocytes # (A) 0.7 k/uL (0-1.0); Monocytes % (A) 8 %; Neutrophils # (A) 5.5 k/uL (1.3-7.7); Neutrophils % (A) 59 %; Platelet Count 236 k/uL (150-450); RBC 4.58 m/uL (3.80-5.40); RDW 12.9 % (11.5-15.5); WBC 9.3 k/uL (3.8-10.6)
[2018-01-17 18:04] LABS: INR 1.1 (<1.2); Partial Thromboplastin Time 22.8 sec (22.0-30.0); Prothrombin Time 10.5 sec (9.0-12.0)
[2018-01-17] MEDS ORDERED: KETOROLAC 30 MG/ML 1 ML VIAL IVP STA (18:06)
[2018-01-17 18:07] LABS: ALT 28 U/L (9-52); AST 21 U/L (14-36); Albumin 4.2 g/dL (3.5-5.0); Alkaline Phosphatase 66 U/L (38-126); Anion Gap 12 mmol/L; Blood Urea Nitrogen 16 mg/dL (7-17); Calcium 9.8 mg/dL (8.4-10.2); Carbon Dioxide 23 mmol/L (22-30); Chloride 105 mmol/L (98-107); Glucose 84 mg/dL (74-99); Magnesium 1.8 mg/dL (1.6-2.3); Potassium 4.1 mmol/L (3.5-5.1); Sodium 140 mmol/L (137-145); Total Bilirubin 0.3 mg/dL (0.2-1.3); Total Protein 7.4 g/dL (6.3-8.2)
[2018-01-17 18:09] LABS: Creatine Kinase 99 U/L (30-135)
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
[2018-01-17 18:23] LABS: Creatine Kinase MB 0.5 ng/mL (0.0-2.4); Troponin I <0.012 ng/mL (0.000-0.034)
--- NOTE | 2018-01-17 18:53 | XR ---
EXAMINATION TYPE: XR chest 2V DATE OF EXAM: 01/17/2018 COMPARISON: 01/15/2018 HISTORY: Chest pain TECHNIQUE: Frontal and lateral views of the chest are obtained. FINDINGS: Heart and mediastinum are normal. Lungs are clear of consolidation. There is no pleural ef fusion. Costophrenic angles are clear. Bony thorax is intact. IMPRESSION: No active cardiopulmonary disease. No change.
[2018-01-17] MEDS ORDERED: LORazepam 2 MG/ML INJ IV PRN (20:32)
[2018-01-17] MEDS ORDERED: KETOROLAC 30 MG/ML 1 ML VIAL IVP PRN (20:32)
[2018-01-17] MEDS ORDERED: IBUPROFEN 400 MG TAB PO PRN (20:32)
[2018-01-17] MEDS ORDERED: NALOXONE 0.4 MG/ML 1 ML VIAL IV PRN (20:32)
[2018-01-17] MEDS ORDERED: SUMAtriptan SUCCINATE 50 MG TAB PO PRN (20:34)
[2018-01-17] MEDS ORDERED: IBUPROFEN 600 MG TAB PO PRN (20:34)
[2018-01-17] MEDS ORDERED: ALBUTEROL NEBULIZED 2.5 MG/3 ML INHALATION PRN (20:34)
[2018-01-17] MEDS ORDERED: SODIUM CHLORIDE 0.9% 1,000 ML IV SCH (20:45)
[2018-01-17] MEDS ORDERED: METOPROLOL TARTRATE 12.5 MG TAB PO SCH (21:00)
[2018-01-17 22:11] VITALS: BMI 29.4
[2018-01-17] MEDS: ATORVASTATIN 10 MG TAB PO SCH (22:11)
[2018-01-17] MEDS: FAMOTIDINE 20 MG TAB PO SCH (22:11)
[2018-01-17] MEDS: TEMAZEPAM 15 MG CAP PO PRN (22:31)
[2018-01-18 00:49] LABS: Creatine Kinase 80 U/L (30-135)
[2018-01-18 01:02] LABS: Creatine Kinase MB 0.4 ng/mL (0.0-2.4); Troponin I <0.012 ng/mL (0.000-0.034)
[2018-01-18 07:46] LABS: Creatine Kinase 68 U/L (30-135)
[2018-01-18 07:58] LABS: Creatine Kinase MB 0.3 ng/mL (0.0-2.4); Troponin I <0.012 ng/mL (0.000-0.034)
[2018-01-18] MEDS: FAMOTIDINE 20 MG TAB PO SCH ×2 (09:25→21:05)
[2018-01-18] MEDS: ARIPiprazole 10 MG TAB PO SCH (09:25)
[2018-01-18] MEDS: PANTOPRAZOLE 40 MG/10 ML VIAL IV SCH (09:25)
[2018-01-18] MEDS: ESCITALOPRAM 10 MG TAB PO SCH (09:25)
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
[2018-01-18 13:12] VITALS: RESP 16
[2018-01-18] MEDS ORDERED: SODIUM CHLORIDE 0.9% 1,000 ML IV SCH (15:00)
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
[2018-01-18] MEDS: ACETAMINOPHEN TAB 325 MG TAB PO PRN (16:06)
[2018-01-18] MEDS ORDERED: ONDANSETRON 4 MG/2 ML VIAL IVP PRN (20:04)
[2018-01-18] MEDS: ATORVASTATIN 10 MG TAB PO SCH (21:05)
[2018-01-18] MEDS: TEMAZEPAM 15 MG CAP PO PRN (21:05)
[2018-01-19] MEDS: FAMOTIDINE 20 MG TAB PO SCH (08:26)
[2018-01-19] MEDS: ESCITALOPRAM 10 MG TAB PO SCH (08:27)
[2018-01-19] MEDS: PANTOPRAZOLE 40 MG/10 ML VIAL IV SCH (08:27)
[2018-01-19] MEDS: ARIPiprazole 10 MG TAB PO SCH (08:27)
[2018-01-19] MEDS: ACETAMINOPHEN TAB 325 MG TAB PO PRN (08:33)
[2018-01-19] MEDS ORDERED: METOPROLOL TARTRATE 12.5 MG TAB PO SCH (09:00)
[2018-01-19 12:53] VITALS: BP 97/58; PULSE 98; TEMP 98.7
--- NOTE | 2018-01-19 15:24 | ECHOF ---
Referral Reason:chest pain MEASUREMENTS -------- HEIGHT: 170.2 cm WEIGHT: 85.3 kg BP: 87/54 RVIDd: 2.8 cm (< 3.3) IVSd: 0.9 cm (0.6 - 1.1) LVIDd: 4.3 cm (3.9 - 5.3) LVPWd: 0.9 cm (0.6 - 1.1) IVSs: 1.1 cm LVIDs: 3.4 cm LVPWs: 1.7 cm LAESV Index (A-L): 21.13 ml/m Ao Diam: 3.3 cm (2.0 - 3.7) AV Cusp: 2.2 cm (1.5 - 2.6) LA Diam: 2.6 cm (2.7 - 3.8) EPSS: 0.7 cm MV E Hi: 0.78 m/s MV DecT: 231 ms MV A Hi: 0.86 m/s MV E/A Ratio: 0.90 RAP: 5.00 mmHg RVSP: 30.90 mmHg MV EF SLOPE: 95.51 mm/s (70 - 150) MV EXCURSION: 1.87 cm (> 18.000) FINDINGS -------- Sinus rhythm. This was a technically adequate study. The left ventricular size is normal. Left ventricular wall thickness is normal. Overall left vent ricular systolic function is low-normal with, an EF between 50 - 55 %. The right ventricle is normal in size and function. Normal LA size by volume 22+/-6 ml/m2. The right atrium is normal in size. The aortic valve is trileaflet, and appears structurally normal. No aortic stenosis or regurgitation. The mitral valve is normal. There is trace to mild mitral regurgitation. No regurgitation noted Right ventricular systolic pressure is normal at < 35 mmHg. There is no ev idence of pulmonary hypertension. Trace/mild (physiologic) pulmonic regurgitation. The aortic root size is normal. Normal inferior vena cava with normal inspiratory collapse consistent with estimated right atrial pre ssure of 5 mmHg. There is no pericardial effusion. CONCLUSIONS -------- 1. Sinus rhythm. 2. This was a technically adequate study. 3. The left ventricular size is normal. 4. Left ventricular wall thickness is normal. 5. Overall left ventricular systolic function is low-normal with, an EF between 50 - 55 %. 6. Normal LA size by volume 22+/-6 ml/m2. 7. The aortic valve is trileaflet, and appears structurally normal. No aortic stenosis or regurgitati on. 8. There is trace to mild mitral regurgitation. 9. No regurgitation noted 10. Right ventricular systolic pressure is normal at < 35 mmHg. 11. There is no evidence of pulmonary hypertension. 12. Trace/mild (physiologic) pulmonic regurgitation. 13. The aortic root size is normal. 14. There is no pericardial effusion. MICROSTRATEGY DEVELOPER: Percy Gomez RDCS
--- NOTE | 2018-01-19 16:34 | P.DS ---
Providers Date of admission: 01/17/18 20:26 Attending physician: Conchita Basilio Consults: 01/17/18 21:37 Consult Physician Routine Consulting Provider: [facility] Consult Reason/Comments: cp Do you want consulting provider notified?: Yes, Notify in am Primary care physician: Adriana Huber [facility] Course: This is a pleasant 32 years old female asthma, chest pain, GERD, hyperlipidemia pneumonia seizure disorder, syncope who presents with chest pain she has recently been admitted to the hospital with a similar complaint and had stress test done for her which was negative then she signed a AMA because she has some family issues recently 1 day ago she was walking her dog and she felt the same pain, the pain is located in the left upper chest anteriorly it was severe yesterday to affect her breathing but its is eased down now to 3/10, s, no associated nausea vomiting, or dizziness Patient has been evaluated by cardiology team, and review of her recent negative stress test of the heart, they rechecked for echocardiogram which shows EF of 50-55% with normal left ventricular wall thickness, cardiology team cleared the patient for discharge Patient was noticed to have low blood pressure which looks very similar to the previous recording in the records, patient got IV fluids overnight, Lopressor has been stopped by the other team [she was taken it for tachycardia], Patient is asymptomatic, her gait was normal, get up and go test is normal, patient denies any dizziness, blurred vision, breathing difficulty currently recommended for the patient to follow-up with her PCP and cardiology in 1 week and she verbalized understanding and acceptance, patient stated that she will call and make appointments as recommended I evaluated the patient again today for Wells criteria and her Wells's score for PE is 0, we checked d-dimer was negative at 0.56, therefore I think at this point testing more for PE will have more risks than benefits for the patient's as she is unlikely to have PE Patient patient's her symptoms are improved significantly with mild residual left upper chest pain, mostly musculoskeletal in nature, continue with symptomatic treatment Patient is counseled about sleep hygiene and medication both home and new. pt states " i want to go home" Follow-up clinic referrals and recommendations were discussed with the patient and she verbalized understanding and agreement to them Above problem list and treatment plan were discussed with the patient and she verbalized understanding and acceptance to its Patient was found stable and can be discharged home however she needs follow up as an outpatient Constitutional: No acute distress, conversant, pleasant Eyes: Anicteric sclerae, moist conjunctiva, no lid-lag PERRLA ENMT: NC/AT Oropharynx clear, no erythema, exudates Neck: Supple, FROM, no masses, or JVD No carotid bruits No thyromegaly Lungs: Clear to auscultation Clear to percussion - Normal respiratory effort, no accessory muscle use , left upper chest wall tenderness Cardiovascular: Heart regular in rate and rhythm, No murmurs, gallops, or rubs No peripheral edema Abdominal: Soft Nontender, no guarding, rebound or rigidity Abdomen moving with respiration Normoactive bowel sounds No hepatomegaly, No splenomegaly No palpable mass No abdominal wall hernia noted Skin: Normal temperature, tone, texture, turgor No induration No subcutaneous nodules No rash, lesions No ulcers Extremities: No digital cyanosis No clubbing Pedal pulses intact and symmetrical Radial pulses intact and symmetrical Normal gait and station No calf tenderness Psychiatric: Alert and oriented to person, place and time Appropriate affect Intact judgement Neuro: Muscles Strength 5/5 in all 4 extremities Sensation to light touch grossly present throughout Cranial nerves II-XII grossly intact No focal sensory deficits Patient Condition at Discharge: Stable Plan - Discharge Summary New Discharge Prescriptions: New Acetaminophen Tab [Tylenol] 650 mg PO Q6HR PRN #15 tab PRN Reason: Mild Pain Or Fever > 100.5 Discontinued Metoprolol Tartrate 12.5 mg PO BID No Action Ranitidine HCl [Zantac] 150 mg PO BID Escitalopram [Lexapro] 10 mg PO DAILY #14 tab Ibuprofen [Motrin] 600 mg PO Q8HR PRN #20 tab PRN Reason: Pain SUMAtriptan SUCCINATE [Imitrex] 100 mg PO DAILY PRN PRN Reason: Migraine Headache Atorvastatin [Lipitor] 10 mg PO HS ARIPiprazole [Abilify] 10 mg PO DAILY Albuterol Inhaler [Ventolin Hfa Inhaler] 2 puff INHALATION RT-Q6H PRN PRN Reason: Shortness Of Breath Discharge Medication List Ranitidine HCl [Zantac] 150 mg PO BID 08/12/17 [History] Escitalopram [Lexapro] 10 mg PO DAILY #14 tab 11/23/17 [Rx] Ibuprofen [Motrin] 600 mg PO Q8HR PRN #20 tab 12/09/17 [Rx] Atorvastatin [Lipitor] 10 mg PO HS 12/14/17 [History] SUMAtriptan SUCCINATE [Imitrex] 100 mg PO DAILY PRN 12/14/17 [History] ARIPiprazole [Abilify] 10 mg PO DAILY 12/26/17 [History] Albuterol Inhaler [Ventolin Hfa Inhaler] 2 puff INHALATION RT-Q6H PRN 01/15/18 [ History] Acetaminophen Tab [Tylenol] 650 mg PO Q6HR PRN #15 tab 01/19/18 [Rx] Follow up Appointment(s)/Referral(s): Cecile Wright MD [Primary Care Provider] - 1-2 days Xiomara Bolton MD [STAFF PHYSICIAN] - 1 Week (for your rapid heart rate, tachycardia ) Activity/Diet/Wound Care/Special Instructions: Cardiac diet Activity as tolerated Discharge Disposition: HOME SELF-CARE
== END 2018-01-19 16:31 | disposition home or self-care (01) ==
LOC: EC 16:52 → 3OBS 20:26
PROVIDERS: ADMIT Internal Medicine; ATTEND Internal Medicine
DX: R07.89 Other chest pain (principal); J45.909 Unspecified asthma, uncomplicated; K21.9 Gastro-esophageal reflux disease without esophagitis; I10 Essential (primary) hypertension; E78.5 Hyperlipidemia, unspecified; Z62.810 Personal history of physical and sexual abuse in childhood; F32.9 Major depressive disorder, single episode, unspecified; F90.9 Attention-deficit hyperactivity disorder, unspecified type; G40.909 Epilepsy, unspecified, not intractable, without status epilepticus; F43.10 Post-traumatic stress disorder, unspecified; I44.4 Left anterior fascicular block; F60.9 Personality disorder, unspecified; Z87.891 Personal history of nicotine dependence; Z88.1 Allergy status to other antibiotic agents; Z88.7 Allergy status to serum and vaccine; Z88.5 Allergy status to narcotic agent; Z88.2 Allergy status to sulfonamides; Z88.8 Allergy status to other drugs, medicaments and biological substances; I25.2 Old myocardial infarction; Z79.899 Other long term (current) drug therapy; Z80.1 Family history of malignant neoplasm of trachea, bronchus and lung; Z82.0 Family history of epilepsy and other diseases of the nervous system; Z87.442 Personal history of urinary calculi; Z98.51 Tubal ligation status; Z90.49 Acquired absence of other specified parts of digestive tract; Z81.8 Family history of other mental and behavioral disorders
CPT/HCPCS: 96375; 96376; 96361; 96374; 99285; 36415; 93005; 93306; 85379; 80053; 82550 ×2; 82553 ×2; 83735; 84484 ×2; 85025; 85610; 85730; 84703; 87502; 71046; G0378 ×3; J2405; J1885; C9113 ×2

== ENCOUNTER 2018-01-25 19:57 | Emergency (ER) | payer OTHER ==
[2018-01-25 20:02] VITALS: RESP 18
[2018-01-25 20:35] LABS: Basophils % (A) 0 %; Eosinophils # (A) 0.2 k/uL (0-0.7); Eosinophils % (A) 2 %; HCT 38.9 % (34.0-46.0); HGB 13.2 gm/dL (11.4-16.0); Lymphocytes # (A) 3.8 k/uL (1.0-4.8); Lymphocytes % (A) 41 %; MCH 31.2 pg (25.0-35.0); MCHC 33.9 g/dL (31.0-37.0); MCV 91.8 fL (80.0-100.0); Monocytes # (A) 0.3 k/uL (0-1.0); Monocytes % (A) 3 %; Neutrophils # (A) 4.7 k/uL (1.3-7.7); Neutrophils % (A) 51 %; Platelet Count 271 k/uL (150-450); RBC 4.24 m/uL (3.80-5.40); RDW 13.1 % (11.5-15.5); WBC 9.3 k/uL (3.8-10.6)
--- NOTE | 2018-01-25 20:35 | XR ---
EXAMINATION TYPE: XR chest 2V DATE OF EXAM: 01/25/2018 CLINICAL HISTORY: Pain TECHNIQUE: Frontal and lateral views of the chest are obtained. COMPARISON: 01/17/2018 FINDINGS: There is no focal air space opacity, pleural effusion, or pneumothorax seen. The cardiac silhouette size is within normal limits. The osseous structures are intact. IMPRESSION: No acute cardiopulmonary process.
[2018-01-25 20:44] LABS: ALT 24 U/L (9-52); AST 19 U/L (14-36); Albumin 3.8 g/dL (3.5-5.0); Alkaline Phosphatase 57 U/L (38-126); Anion Gap 13 mmol/L; Blood Urea Nitrogen 9 mg/dL (7-17); Calcium 9.3 mg/dL (8.4-10.2); Carbon Dioxide 20 mmol/L (22-30); Chloride 109 mmol/L (98-107); Glucose 110 mg/dL (74-99); Sodium 142 mmol/L (137-145); Total Bilirubin 0.3 mg/dL (0.2-1.3); Total Protein 6.8 g/dL (6.3-8.2)
[2018-01-25 21:10] LABS: Creatine Kinase 101 U/L (30-135)
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
[2018-01-25] MEDS ORDERED: SODIUM CHLORIDE 0.9% 1,000 ML IV ONE (21:22)
[2018-01-25 21:23] LABS: Creatine Kinase MB 0.5 ng/mL (0.0-2.4); Troponin I <0.012 ng/mL (0.000-0.034)
[2018-01-25 22:28] VITALS: BP 106/80; PULSE 92; TEMP 98
== END 2018-01-25 22:27 | disposition home or self-care (01) ==
LOC: EC 19:57
DX: R07.89 Other chest pain (principal); J45.909 Unspecified asthma, uncomplicated; E78.5 Hyperlipidemia, unspecified; I10 Essential (primary) hypertension; F31.9 Bipolar disorder, unspecified; F90.9 Attention-deficit hyperactivity disorder, unspecified type; F41.9 Anxiety disorder, unspecified; F43.10 Post-traumatic stress disorder, unspecified; Z87.891 Personal history of nicotine dependence; K21.9 Gastro-esophageal reflux disease without esophagitis; Z79.899 Other long term (current) drug therapy; Z88.7 Allergy status to serum and vaccine; Z88.1 Allergy status to other antibiotic agents; Z88.5 Allergy status to narcotic agent; Z88.2 Allergy status to sulfonamides; Z88.6 Allergy status to analgesic agent; Z88.8 Allergy status to other drugs, medicaments and biological substances; Z91.012 Allergy to eggs
CPT/HCPCS: 36415; 71046; 80053; 82550; 82553; 84484; 85025; 85379; 93005; 96360; 99285

== ENCOUNTER 2018-02-13 09:03 | Day surgery (SDC) | payer OTHER ==
[2018-02-11 17:02] VITALS: BMI 28.6
[~2018-02-13 09:03] MED LIST: LACTATED RINGERS 1,000 ML IV SCH
[2018-02-13] MEDS ORDERED: LIDOCAINE 1% 20 ML VIAL (10MG/ML) FOR IV START INTRADERMA ONE (10:41)
[2018-02-13 10:43] VITALS: TEMP 97.9
[2018-02-13] MEDS ORDERED: PROPOFOL 10 MG/ML 20 ML VIAL IV ONE (12:06)
[2018-02-13] MEDS ORDERED: MIDAZOLAM 2 MG/2 ML VIAL ONE (12:06)
[2018-02-13] MEDS ORDERED: LIDOCAINE 1% INJ 10MG/ML (20 ML MDV) ONE (12:06)
--- NOTE | 2018-02-13 12:34 | P.PCN ---
Date of Procedure: 02/13/18 Procedure(s) Performed: Procedure: Esophagogastroduodenoscopy and biopsy. Preoperative diagnosis: Epigastric and atypical chest pain and history of reflux. Postoperative diagnosis: 1. Small sliding hiatal hernia with no obvious esophagitis or complicated reflux disease. 2. Mild antral gastritis. 3. Multiple biopsies obtained from the duodenum, antrum and esophagus. Preparation and sedation: Was provided by anesthesia. Brief clinical history: The patient is a 32-year-old female who is scheduled for this evaluation for the above reasons. She been feeling this way for several months/close to a year. She has not responded to medical therapy. Had her gallbladder removed last year for cholelithiasis and cholecystitis. This evaluation is to assess for esophagitis, complicated reflux disease or other pathology. Procedure: With the patient on her left lateral decubitus position and after informed consent and adequate sedation, I passed the Olympus-GIF 160 video upper endoscope through the cricopharyngeus down the esophagus. GE junction was around 35-36 cm from the incisors and there was a small sliding hiatal hernia but no obvious esophagitis or complicated reflux disease. The endoscope was then passed into the stomach which was insufflated with air and inspected in detail including the retroflex view in the cardia. There was some mottling and erythema in the antrum but no ulcers or erosions. Pyloric channel, duodenal bulb, post bulbar area and descending duodenum appeared within normal limits. I obtained biopsies from the duodenum, antrum and esophagus then the endoscope was withdrawn. The patient tolerated the procedure well. Plan: The patient was reassured. Will await biopsy results. She will follow- up with you as planned and further plans can be made based on her course and biopsy results.
[2018-02-13 12:45] VITALS: RESP 16
[2018-02-13 12:54] VITALS: BP 103/71; PULSE 95
== END 2018-02-13 13:09 | disposition home or self-care (01) ==
LOC: ORWHC2ENDO 09:03
DX: K44.9 Diaphragmatic hernia without obstruction or gangrene (principal); K21.9 Gastro-esophageal reflux disease without esophagitis; K31.89 Other diseases of stomach and duodenum; K29.50 Unspecified chronic gastritis without bleeding; I25.10 Atherosclerotic heart disease of native coronary artery without angina pectoris; I25.2 Old myocardial infarction; I10 Essential (primary) hypertension; E78.5 Hyperlipidemia, unspecified; J45.909 Unspecified asthma, uncomplicated; Z87.891 Personal history of nicotine dependence; F39 Unspecified mood [affective] disorder; G43.909 Migraine, unspecified, not intractable, without status migrainosus; Z79.899 Other long term (current) drug therapy; Z88.2 Allergy status to sulfonamides; Z88.7 Allergy status to serum and vaccine; Z88.1 Allergy status to other antibiotic agents; Z91.012 Allergy to eggs
CPT/HCPCS: 81025; 88305; 43239; J2250; J2001; J2704

== ENCOUNTER 2018-02-14 19:33 | Emergency (ER) | payer OTHER ==
[2018-02-14 19:55] VITALS: BP 101/69; PULSE 110; RESP 18; TEMP 98.7
[2018-02-14] MEDS ORDERED: SODIUM CHLORIDE 0.9% 1,000 ML IV ONE (21:57)
--- NOTE | 2018-02-14 21:57 | ED ---
General Adult HPI - General Chief complaint: Recheck/Abnormal Lab/Rx Stated complaint: Coughing Time Seen by Provider: 02/14/18 21:17 Source: patient Mode of arrival: ambulatory Limitations: no limitations - History of Present Illness Initial comments: Patient is a 32-year-old female presenting for hemoptysis. She states that she had a scope on her esophagus done yesterday and she was told that she had a hernia. Today, she started coughing up bright red blood several times but denies any chest pain or shortness breath. She comes today because she was instructed yesterday that if there was any problems, she will be placed in observation. - Related Data Home Medications Medication Instructions Recorded Confirmed Atorvastatin [Lipitor] 10 mg PO DAILY 12/14/17 02/14/18 SUMAtriptan SUCCINATE [Imitrex] 100 mg PO DAILY PRN 12/14/17 02/14/18 ARIPiprazole [Abilify] 10 mg PO HS 12/26/17 02/14/18 Albuterol Inhaler [Ventolin Hfa 2 puff INHALATION Q6H PRN 01/15/18 02/14/18 Inhaler] Acetaminophen Tab [Tylenol] 650 mg PO Q6HR PRN 02/11/18 02/14/18 Atomoxetine HCl [Strattera] 25 mg PO QAM 02/14/18 02/14/18 Omeprazole [PriLOSEC] 20 mg PO AC-BID 02/14/18 02/14/18 Ranitidine HCl [Zantac] 300 mg PO DAILY 02/14/18 02/14/18 Previous Rx's Medication Instructions Recorded Escitalopram [Lexapro] 10 mg PO DAILY #14 tab 11/23/17 Ibuprofen [Motrin] 600 mg PO Q8HR PRN #20 tab 01/25/18 Ondansetron Odt [Zofran ODT] 4 mg PO Q8HR PRN #10 tab 01/25/18 Allergies Allergy/AdvReac Type Severity Reaction Status Date / Time azithromycin Allergy Rash/Hives Verified 02/14/18 21:38 divalproex sodium Allergy "had Verified 02/14/18 21:38 [From Depakote] seizure when coming off" hydrocodone Allergy Rash/Hives Verified 02/14/18 21:38 Quinolones Allergy Rash/Hives Verified 02/14/18 21:38 sulfamethoxazole Allergy Rash/Hives Verified 02/14/18 21:38 [From Bactrim] tramadol Allergy Rash/Hives Verified 02/14/18 21:38 trimethoprim [From Bactrim] Allergy Rash/Hives Verified 02/14/18 21:38 codeine AdvReac Vertigo Verified 02/14/18 21:38 diphenhydramine HCl AdvReac Rapid Verified 02/14/18 21:38 [From Benadryl] Heart Rate egg AdvReac Nausea & Verified 02/14/18 21:38 Vomiting Influenza Virus Vaccines AdvReac Nausea & Verified 02/14/18 21:38 Vomiting Review of Systems ROS Statement: Those systems with pertinent positive or pertinent negative responses have been documented in the HPI. Constitutional: Negative for chills, fatigue and fever. HENT: Negative for congestion. Respiratory: Negative for chest tightness, shortness of breath and wheezing. Positive for coughing up blood Cardiovascular: Negative for chest pain and palpitations. Gastrointestinal: Negative for abdominal pain. Negative for abdominal distention , diarrhea, nausea and vomiting. Genitourinary: Negative for dysuria. Musculoskeletal: Negative for back pain, neck pain and neck stiffness. Skin: Negative for color change. Neurological: Negative for dizziness, speech difficulty, weakness and light- headedness. Psychiatric/Behavioral: Negative for agitation and confusion. The patient is not nervous/anxious. ROS Other: All systems not noted in ROS Statement are negative. Past Medical History Past Medical History: Asthma, Chest Pain / Angina, GERD/Reflux, Myocardial Infarction ([place]), Seizure Disorder, Syncope Additional Past Medical History / Comment(s): migraines, seizure 2 yrs ago from "depakote", [place] x 2, low blood pressures, irregular heart beat, tachycardia, Last Myocardial Infarction Date:: 10/2016 History of Any Multi-Drug Resistant Organisms: None Reported Past Surgical History: Cholecystectomy, Tubal Ligation Additional Past Surgical History / Comment(s): Tilt table test, wisdom teeth extraction. Past Anesthesia/Blood Transfusion Reactions: Previous Problems w/ Anesthesia Additional Past Anesthesia/Blood Transfusion Reaction / Comment(s): "I get anxious when I wake up when my fiance is not there" Past Psychological History: ADD/ADHD, Anxiety, Bipolar, Depression, PTSD Smoking Status: Former smoker Past Alcohol Use History: None Reported Past Drug Use History: None Reported - Past Family History Father Family Medical History: Cancer Additional Family Medical History / Comment(s): Father at age 61 from lung CA Mother Family Medical History: No Reported History, Seizure Disorder Additional Family Medical History / Comment(s): Mother is alive with history of bipolar/schitzophrenia Brother(s) Additional Family Medical History / Comment(s): She has one half brother that abuses cocaine and methamphetamines. She does not have any contact with him. Patient has 1 sister with no major medical problems. Patient does not have any children. General Exam - General Exam Comments Initial Comments: Constitutional: Pt is oriented to person, place, and time. Pt appears well- developed and well-nourished. No distress. HENT: Head: Normocephalic and atraumatic. Eyes: EOM are normal. Neck: Normal range of motion. Neck supple. Cardiovascular: Normal rate, regular rhythm, S1 normal, S2 normal and normal heart sounds. Exam reveals no gallop and no friction rub. No murmur heard. Pulmonary/Chest: Effort normal and breath sounds normal. No tachypnea and no bradypnea. No respiratory distress. No wheezes or rales noted. Abdominal: Soft. Bowel sounds are normal. Pt exhibits no shifting dullness, no distension, no pulsatile liver, no fluid wave, no abdominal bruit and no ascites. There is no tenderness. There is no rigidity, no rebound, no guarding, no tenderness at McBurney's point and negative Guadarrama's sign. Musculoskeletal: Normal range of motion. Neurological: Pt is alert and oriented to person, place, and time. No cranial nerve deficit. Skin: Skin is warm and dry. No rash noted. Pt is not diaphoretic. No erythema. No pallor. Psychiatric: Pt has a normal mood and affect. Pt behavior is normal. Thought content normal. Limitations: no limitations Course Vital Signs 02/14/18 19:51 Temperature 98.7 F Pulse Rate 110 H Respiratory 18 Rate Blood Pressure 101/69 O2 Sat by Pulse 98 Oximetry Medical Decision Making - Lab Data Result diagrams: 02/14/18 21:50 02/14/18 21:50 Lab Results 02/14/18 02/14/18 02/14/18 Range/Units 21:50 21:50 21:50 WBC 7.5 (3.8-10.6) k/uL RBC 4.24 (3.80-5.40) m/uL Hgb 13.3 (11.4-16.0) gm/dL Hct 39.2 (34.0-46.0) % MCV 92.4 (80.0-100.0) fL MCH 31.4 (25.0-35.0) pg MCHC 34.0 (31.0-37.0) g/dL RDW 13.0 (11.5-15.5) % Plt Count 246 (150-450) k/uL Neutrophils % 56 % Lymphocytes % 33 % Monocytes % 6 % Eosinophils % 2 % Basophils % 0 % Neutrophils # 4.2 (1.3-7.7) k/uL Lymphocytes # 2.5 (1.0-4.8) k/uL Monocytes # 0.5 (0-1.0) k/uL Eosinophils # 0.1 (0-0.7) k/uL Basophils # 0.0 (0-0.2) k/uL PT 11.6 (9.0-12.0) sec INR 1.2 H (<1.2) APTT 23.5 (22.0-30.0) sec Sodium 140 (137-145) mmol/L Potassium 3.9 (3.5-5.1) mmol/L Chloride 106 (98-107) mmol/L Carbon Dioxide 23 (22-30) mmol/L Anion Gap 11 mmol/L BUN 17 (7-17) mg/dL Creatinine 0.83 (0.52-1.04) mg/dL Est GFR (CKD-EPI)AfAm >90 (>60 ml/min/1.73 sqM) Est GFR (CKD-EPI)NonAf >90 (>60 ml/min/1.73 sqM) Glucose 84 (74-99) mg/dL Calcium 9.3 (8.4-10.2) mg/dL Magnesium 1.8 (1.6-2.3) mg/dL Total Bilirubin 0.4 (0.2-1.3) mg/dL AST 22 (14-36) U/L ALT 31 (9-52) U/L Alkaline Phosphatase 62 (38-126) U/L Total Protein 7.0 (6.3-8.2) g/dL Albumin 3.9 (3.5-5.0) g/dL Disposition Clinical Impression: Hemoptysis Disposition: HOME SELF-CARE Condition: Good Instructions: Hemoptysis (ED) Is patient prescribed a controlled substance at d/c from ED?: No Referrals: Cecile Wright MD [Primary Care Provider] - 1-2 days Walt Alfonso MD [STAFF PHYSICIAN] - 1-2 days Time of Disposition: 23:41
[2018-02-14 22:01] LABS: Basophils % (A) 0 %; Eosinophils # (A) 0.1 k/uL (0-0.7); Eosinophils % (A) 2 %; HCT 39.2 % (34.0-46.0); HGB 13.3 gm/dL (11.4-16.0); Lymphocytes # (A) 2.5 k/uL (1.0-4.8); Lymphocytes % (A) 33 %; MCH 31.4 pg (25.0-35.0); MCV 92.4 fL (80.0-100.0); Mean Platelet Volume 6.2; Monocytes # (A) 0.5 k/uL (0-1.0); Monocytes % (A) 6 %; Neutrophils # (A) 4.2 k/uL (1.3-7.7); Neutrophils % (A) 56 %; Platelet Count 246 k/uL (150-450); RBC 4.24 m/uL (3.80-5.40); WBC 7.5 k/uL (3.8-10.6)
[2018-02-14 22:11] LABS: ALT 31 U/L (9-52); AST 22 U/L (14-36); Albumin 3.9 g/dL (3.5-5.0); Alkaline Phosphatase 62 U/L (38-126); Anion Gap 11 mmol/L; Blood Urea Nitrogen 17 mg/dL (7-17); Calcium 9.3 mg/dL (8.4-10.2); Carbon Dioxide 23 mmol/L (22-30); Chloride 106 mmol/L (98-107); Glucose 84 mg/dL (74-99); INR 1.2 (<1.2); Magnesium 1.8 mg/dL (1.6-2.3); Partial Thromboplastin Time 23.5 sec (22.0-30.0); Potassium 3.9 mmol/L (3.5-5.1); Prothrombin Time 11.6 sec (9.0-12.0); Sodium 140 mmol/L (137-145); Total Bilirubin 0.4 mg/dL (0.2-1.3)
--- NOTE | 2018-02-14 22:11 | XR ---
EXAMINATION TYPE: XR chest 2V DATE OF EXAM: 02/14/2018 COMPARISON: 01/25/2018 HISTORY: Coughing up blood TECHNIQUE: Frontal and lateral views of the chest are obtained. FINDINGS: Heart and mediastinum are normal. Lungs are clear. Diaphragm is normal. Bony thorax appear s normal. IMPRESSION: Normal chest. No change.
== END 2018-02-14 23:54 | disposition home or self-care (01) ==
LOC: EC 19:33
DX: R04.2 Hemoptysis (principal); J45.909 Unspecified asthma, uncomplicated; K21.9 Gastro-esophageal reflux disease without esophagitis; I25.2 Old myocardial infarction; G40.909 Epilepsy, unspecified, not intractable, without status epilepticus; F90.9 Attention-deficit hyperactivity disorder, unspecified type; F41.9 Anxiety disorder, unspecified; F31.9 Bipolar disorder, unspecified; F43.10 Post-traumatic stress disorder, unspecified; Z87.891 Personal history of nicotine dependence; Z79.899 Other long term (current) drug therapy; Z88.7 Allergy status to serum and vaccine; Z91.012 Allergy to eggs; Z88.2 Allergy status to sulfonamides; Z88.5 Allergy status to narcotic agent; Z88.8 Allergy status to other drugs, medicaments and biological substances; Z88.1 Allergy status to other antibiotic agents; Z88.6 Allergy status to analgesic agent
CPT/HCPCS: 36415; 71046; 80053; 83735; 85025; 85610; 85730; 96360; 99283

== ENCOUNTER 2018-02-17 21:54 | Emergency (ER) | payer OTHER ==
[2018-02-17 22:16] VITALS: BP 112/73; PULSE 110; RESP 18; TEMP 98
--- NOTE | 2018-02-17 22:44 | XR ---
EXAMINATION TYPE: XR hand complete RT DATE OF EXAM: 02/17/2018 COMPARISON: 10/14/2017 HISTORY: Pain from TECHNIQUE: 3 views FINDINGS: I see no fracture nor dislocation. Metacarpals are intact. The thumb appears intact. IMPRESSION: Negative right hand exam. No change.
--- NOTE | 2018-02-17 22:50 | ED ---
General Adult HPI - General Chief complaint: Extremity Injury, Upper Stated complaint: right thumb injury work related Time Seen by Provider: 02/17/18 22:18 Source: patient, RN notes reviewed Mode of arrival: ambulatory Limitations: no limitations - History of Present Illness Initial comments: 32-year-old female presents to the emergency department for a chief complaint of right thumb pain times one day. Patient states she was at work when she dropped a box of fries on it and injured it. Patient states it hurts to touch and move. Patient denies any other injuries occurring from this incident. Patient denies falling or hitting her head. Patient denies any pain in the wrist. Patient denies any pain in the rest of the hand besides the thumb.Patient has no other complaints at this time including shortness of breath , chest pain, abdominal pain, nausea or vomiting, headache, or visual changes. - Related Data Home Medications Medication Instructions Recorded Confirmed Atorvastatin [Lipitor] 10 mg PO DAILY 12/14/17 02/17/18 SUMAtriptan SUCCINATE [Imitrex] 100 mg PO DAILY PRN 12/14/17 02/17/18 ARIPiprazole [Abilify] 10 mg PO HS 12/26/17 02/17/18 Albuterol Inhaler [Ventolin Hfa 2 puff INHALATION Q6H PRN 01/15/18 02/17/18 Inhaler] Acetaminophen Tab [Tylenol] 650 mg PO Q6HR PRN 02/11/18 02/17/18 Atomoxetine HCl [Strattera] 25 mg PO QAM 02/14/18 02/17/18 Omeprazole [PriLOSEC] 20 mg PO AC-BID 02/14/18 02/17/18 Ranitidine HCl [Zantac] 300 mg PO DAILY 02/14/18 02/17/18 Previous Rx's Medication Instructions Recorded Escitalopram [Lexapro] 10 mg PO DAILY #14 tab 11/23/17 Ibuprofen [Motrin] 600 mg PO Q8HR PRN #20 tab 01/25/18 Ondansetron Odt [Zofran ODT] 4 mg PO Q8HR PRN #10 tab 01/25/18 Allergies Allergy/AdvReac Type Severity Reaction Status Date / Time azithromycin Allergy Rash/Hives Verified 02/17/18 22:36 divalproex sodium Allergy "had Verified 02/17/18 22:36 [From Depakote] seizure when coming off" hydrocodone Allergy Rash/Hives Verified 02/17/18 22:36 Quinolones Allergy Rash/Hives Verified 02/17/18 22:36 sulfamethoxazole Allergy Rash/Hives Verified 02/17/18 22:36 [From Bactrim] tramadol Allergy Rash/Hives Verified 02/17/18 22:36 trimethoprim [From Bactrim] Allergy Rash/Hives Verified 02/17/18 22:36 codeine AdvReac Vertigo Verified 02/17/18 22:36 diphenhydramine HCl AdvReac Rapid Verified 02/17/18 22:36 [From Benadryl] Heart Rate egg AdvReac Nausea & Verified 02/17/18 22:36 Vomiting Influenza Virus Vaccines AdvReac Nausea & Verified 02/17/18 22:36 Vomiting Review of Systems ROS Statement: Those systems with pertinent positive or pertinent negative responses have been documented in the HPI. ROS Other: All systems not noted in ROS Statement are negative. Past Medical History Past Medical History: Asthma, Chest Pain / Angina, GERD/Reflux, Myocardial Infarction ([place]), Seizure Disorder, Syncope Additional Past Medical History / Comment(s): migraines, seizure 2 yrs ago from "depakote", [place] x 2, low blood pressures, irregular heart beat, tachycardia, Last Myocardial Infarction Date:: 10/2016 History of Any Multi-Drug Resistant Organisms: None Reported Past Surgical History: Cholecystectomy, Tubal Ligation Additional Past Surgical History / Comment(s): Tilt table test, wisdom teeth extraction. Past Anesthesia/Blood Transfusion Reactions: Previous Problems w/ Anesthesia Additional Past Anesthesia/Blood Transfusion Reaction / Comment(s): "I get anxious when I wake up when my fiance is not there" Past Psychological History: ADD/ADHD, Anxiety, Bipolar, Depression, PTSD Smoking Status: Former smoker Past Alcohol Use History: None Reported Past Drug Use History: None Reported - Past Family History Father Family Medical History: Cancer Additional Family Medical History / Comment(s): Father at age 61 from lung CA Mother Family Medical History: No Reported History, Seizure Disorder Additional Family Medical History / Comment(s): Mother is alive with history of bipolar/schitzophrenia Brother(s) Additional Family Medical History / Comment(s): She has one half brother that abuses cocaine and methamphetamines. She does not have any contact with him. Patient has 1 sister with no major medical problems. Patient does not have any children. General Exam Limitations: no limitations General appearance: alert, in no apparent distress Head exam: Present: atraumatic, normocephalic, normal inspection Respiratory exam: Present: normal lung sounds bilaterally. Absent: respiratory distress, wheezes, rales, rhonchi, stridor Cardiovascular Exam: Present: regular rate, normal rhythm, normal heart sounds. Absent: systolic murmur, diastolic murmur, rubs, gallop, clicks Extremities exam: Present: tenderness (Tenderness to the first metacarpal on the volar aspect. No scaphoid tenderness or tenderness on the dorsal aspect of the thumb. No tenderness in the rest of the hand or digits. No tenderness in the wrist.), normal capillary refill (Refill less than 2 seconds and radial pulse 2+.), other (Sensation intact in the right hand and right thumb.). Absent : full ROM (Patient refuses to try to move the thumb due to pain. She does have some flexion and abduction however. Full range motion of all other fingers and wrist.), joint swelling (No swelling or ecchymosis noted of the right thumb. No breaks in the skin or lacerations. No redness) Course Vital Signs 02/17/18 22:13 Temperature 98.0 F Pulse Rate 110 H Respiratory 18 Rate Blood Pressure 112/73 O2 Sat by Pulse 99 Oximetry Medical Decision Making - Medical Decision Making 32-year-old female presents to the emergency department for a chief complaint of right thumb pain times one day. Patient was at work when she dropped a box of fries on it. No other injuries. On exam there is no swelling or ecchymosis noted of the right thumb. Patient has tenderness of the volar aspect of the first metacarpal. No tenderness to the dorsal aspect. No tenderness to the scaphoid or anatomic snuffbox. Patient has limited range of motion of the thumb due to pain. Sensation intact in neurovascular intact in the right upper extremity. X-ray demonstrates no acute fracture or dislocation of the right thumb. An Mann wrap was applied to the right hand and patient was educated to rest ice and elevate the hand. Patient requested 2 days off work. Patient does not need 2 days off work for this but I will write for limited use of the right hand for 2 days at work. She will follow up with primary care in 1-2 days. She will return to the emergency department if symptoms worsen. Patient is aware that if symptoms continue for 7-10 days she may need repeat x-rays. Disposition Clinical Impression: Contusion of thumb, right Disposition: HOME SELF-CARE Condition: Good Instructions: RICE Therapy (ED) Additional Instructions: Please take Motrin and Tylenol for pain. Please rest, ice, and elevate the right hand. Please use a Mann wrap as necessary. Please follow-up with primary care in 1-2 days. Return to the emergency department if you have any worsening symptoms. Is patient prescribed a controlled substance at d/c from ED?: No Referrals: Cecile Wright MD [Primary Care Provider] - 1-2 days Time of Disposition: 22:49
== END 2018-02-17 22:55 | disposition home or self-care (01) ==
LOC: EC 21:54
DX: S60.011A Contusion of right thumb without damage to nail, initial encounter (principal); J45.909 Unspecified asthma, uncomplicated; I95.9 Hypotension, unspecified; K21.9 Gastro-esophageal reflux disease without esophagitis; F31.9 Bipolar disorder, unspecified; F90.9 Attention-deficit hyperactivity disorder, unspecified type; Z87.891 Personal history of nicotine dependence; Z79.899 Other long term (current) drug therapy; Z88.1 Allergy status to other antibiotic agents; Z88.5 Allergy status to narcotic agent; Z88.7 Allergy status to serum and vaccine; Z88.8 Allergy status to other drugs, medicaments and biological substances; Z91.012 Allergy to eggs; W20.8XXA Other cause of strike by thrown, projected or falling object, initial encounter; Y92.69 Other specified industrial and construction area as the place of occurrence of the external cause; Y99.0 Civilian activity done for income or pay
CPT/HCPCS: 99283

== ENCOUNTER 2018-02-18 14:03 | Emergency (ER) | payer OTHER ==
--- NOTE | 2018-02-18 15:00 | ED ---
Upper Extremity HPI - General Chief Complaint: Extremity Injury, Upper Stated Complaint: Wrist injury Time Seen by Provider: 02/18/18 14:42 Source: patient, RN notes reviewed Mode of arrival: ambulatory Limitations: no limitations - History of Present Illness Initial Comments: This is a 32-year-old female who presents to the emergency department with chief complaint of right hand injury. Patient states that yesterday at work she dropped a box of hungarian fries on her right hand. She states that she was seen in the emergency department yesterday and was discharged with recommendation to use ice, elevation, compression and ibuprofen. Patient returns to the emergency department requesting a splint. She denies any new injuries or trauma. She requests time off from work. Denies current fevers or chills, chest pain or shortness of breath, abdominal pain, nausea or vomiting. - Related Data Home Medications Medication Instructions Recorded Confirmed Atorvastatin [Lipitor] 10 mg PO DAILY 12/14/17 02/17/18 SUMAtriptan SUCCINATE [Imitrex] 100 mg PO DAILY PRN 12/14/17 02/17/18 ARIPiprazole [Abilify] 10 mg PO HS 12/26/17 02/17/18 Albuterol Inhaler [Ventolin Hfa 2 puff INHALATION Q6H PRN 01/15/18 02/17/18 Inhaler] Acetaminophen Tab [Tylenol] 650 mg PO Q6HR PRN 02/11/18 02/17/18 Atomoxetine HCl [Strattera] 25 mg PO QAM 02/14/18 02/17/18 Omeprazole [PriLOSEC] 20 mg PO AC-BID 02/14/18 02/17/18 Ranitidine HCl [Zantac] 300 mg PO DAILY 02/14/18 02/17/18 Previous Rx's Medication Instructions Recorded Escitalopram [Lexapro] 10 mg PO DAILY #14 tab 11/23/17 Ibuprofen [Motrin] 600 mg PO Q8HR PRN #20 tab 01/25/18 Ondansetron Odt [Zofran ODT] 4 mg PO Q8HR PRN #10 tab 01/25/18 Ibuprofen [Motrin] 600 mg PO Q8HR PRN #20 tab 02/17/18 Allergies Allergy/AdvReac Type Severity Reaction Status Date / Time azithromycin Allergy Rash/Hives Verified 02/18/18 14:06 divalproex sodium Allergy "had Verified 02/18/18 14:06 [From Depakote] seizure when coming off" hydrocodone Allergy Rash/Hives Verified 02/18/18 14:06 Quinolones Allergy Rash/Hives Verified 02/18/18 14:06 sulfamethoxazole Allergy Rash/Hives Verified 02/18/18 14:06 [From Bactrim] tramadol Allergy Rash/Hives Verified 02/18/18 14:06 trimethoprim [From Bactrim] Allergy Rash/Hives Verified 02/18/18 14:06 codeine AdvReac Vertigo Verified 02/18/18 14:06 diphenhydramine HCl AdvReac Rapid Verified 02/18/18 14:06 [From Benadryl] Heart Rate egg AdvReac Nausea & Verified 02/18/18 14:06 Vomiting Influenza Virus Vaccines AdvReac Nausea & Verified 02/18/18 14:06 Vomiting Review of Systems ROS Statement: Those systems with pertinent positive or pertinent negative responses have been documented in the HPI. ROS Other: All systems not noted in ROS Statement are negative. Past Medical History Past Medical History: Asthma, Chest Pain / Angina, GERD/Reflux, Myocardial Infarction ([place]), Seizure Disorder, Syncope Additional Past Medical History / Comment(s): migraines, seizure 2 yrs ago from "depakote", [place] x 2, low blood pressures, irregular heart beat, tachycardia, Last Myocardial Infarction Date:: 10/2016 History of Any Multi-Drug Resistant Organisms: None Reported Past Surgical History: Cholecystectomy, Tubal Ligation Additional Past Surgical History / Comment(s): Tilt table test, wisdom teeth extraction. Past Anesthesia/Blood Transfusion Reactions: Previous Problems w/ Anesthesia Additional Past Anesthesia/Blood Transfusion Reaction / Comment(s): "I get anxious when I wake up when my fiance is not there" Past Psychological History: ADD/ADHD, Anxiety, Bipolar, Depression, PTSD Smoking Status: Former smoker Past Alcohol Use History: None Reported Past Drug Use History: None Reported - Past Family History Father Family Medical History: Cancer Additional Family Medical History / Comment(s): Father at age 61 from lung CA Mother Family Medical History: No Reported History, Seizure Disorder Additional Family Medical History / Comment(s): Mother is alive with history of bipolar/schitzophrenia Brother(s) Additional Family Medical History / Comment(s): She has one half brother that abuses cocaine and methamphetamines. She does not have any contact with him. Patient has 1 sister with no major medical problems. Patient does not have any children. General Exam - General Exam Comments Initial Comments: General: Awake and alert, well-developed; in no apparent distress. HEENT: Head atraumatic, normocephalic. Pupils are equal, round and reactive to light. Extraocular movements intact. Oropharynx moist without erythema or exudate. Neck: Supple. Normal ROM. Cardiovascular: Regular rate and rhythm. No murmurs, rubs or gallops. Chest symmetrical. Respiratory: Lungs clear to auscultation bilaterally. No wheezes, rales or rhonchi. Normal respiratory effort with no use of accessory muscles. Musculoskeletal: Normal range of motion of the right hand joints. There is mild bruising and tenderness noted to the volar aspect of the first metacarpal. No significant soft tissue swelling or obvious gross deformities. No snuffbox tenderness. Sensation is intact. Radial pulses are 2+ equal and palpable bilaterally. Skin: [place], warm and dry without rashes or lesions. Neurological: Alert and oriented x3. CN II-XII grossly intact. Speech is fluent and answers are appropriate. No focal neuro deficits. Psychiatric: Normal mood and affect. No overt signs of depression or anxiety noted. Limitations: no limitations Course Vital Signs 02/18/18 14:04 Temperature 98.2 F Pulse Rate 112 H Respiratory 20 Rate Blood Pressure 113/85 O2 Sat by Pulse 99 Oximetry Medical Decision Making - Medical Decision Making This is a 32-year-old female presents to the emergency department with chief complaint of right hand injury. Patient was seen here in the emergency department yesterday and an x-ray was obtained of the right hand. I did review the x-ray along with attending physician, Dr. Laguerre. X-ray is negative. Patient likely suffering from a contusion or sprain of the right thumb. She did request a splint, however did explain to patient that this is not warranted. She is moving her right hand normally. She is neurovascularly intact. No gross deformities or significant swelling. There is mild bruising along the volar aspect of the first metacarpal and this area is tender. No snuffbox tenderness. Patient will be provided with an Mann bandage. She will be discharged home at this time. All questions answered. Disposition Clinical Impression: Contusion of thumb, right Disposition: HOME SELF-CARE Condition: Good Instructions: Contusion in Adults (ED), RICE Therapy (ED) Additional Instructions: Please rest, ice, elevate and wear Mann bandage while at work. Please follow up with primary care provider within 1-2 days. Return to emergency department if symptoms should worsen or any concerns arise. Is patient prescribed a controlled substance at d/c from ED?: No Referrals: Cecile Wright MD [Primary Care Provider] - 1-2 days Time of Disposition: 14:58
[2018-02-18 15:15] VITALS: BP 105/67; PULSE 103; RESP 16; TEMP 98.4
== END 2018-02-18 15:06 | disposition home or self-care (01) ==
LOC: EC 14:03
DX: S60.011D Contusion of right thumb without damage to nail, subsequent encounter (principal); J45.909 Unspecified asthma, uncomplicated; K21.9 Gastro-esophageal reflux disease without esophagitis; I25.2 Old myocardial infarction; F90.9 Attention-deficit hyperactivity disorder, unspecified type; F31.9 Bipolar disorder, unspecified; Z87.891 Personal history of nicotine dependence; Z79.899 Other long term (current) drug therapy; Z88.1 Allergy status to other antibiotic agents; Z88.8 Allergy status to other drugs, medicaments and biological substances; Z88.6 Allergy status to analgesic agent; Z88.5 Allergy status to narcotic agent; Z88.2 Allergy status to sulfonamides; Z91.012 Allergy to eggs; Z88.7 Allergy status to serum and vaccine; W22.8XXD Striking against or struck by other objects, subsequent encounter
CPT/HCPCS: 99283

== ENCOUNTER 2018-03-06 13:32 | Emergency (ER) | payer OTHER ==
[2018-03-06 13:40] VITALS: RESP 20
[2018-03-06] MEDS ORDERED: SODIUM CHLORIDE 0.9% 500 ML IV STA (14:19)
[2018-03-06] MEDS ORDERED: ONDANSETRON 4 MG/2 ML VIAL IVP STA (14:19)
[2018-03-06] MEDS ORDERED: KETOROLAC 30 MG/ML 1 ML VIAL IVP STA (14:19)
[2018-03-06] MEDS ORDERED: SODIUM CHLORIDE 0.9% 1,000 ML IV STA (14:19)
--- NOTE | 2018-03-06 14:29 | ED ---
Abdominal Pain HPI - General Chief Complaint: Abdominal Pain Stated Complaint: flank pain Time Seen by Provider: 03/06/18 14:13 Source: patient, RN notes reviewed Mode of arrival: ambulatory Limitations: no limitations - History of Present Illness Initial Comments: This a 32-year-old female presented from chief complaint of left flank pain. Patient states started a few days ago states that she believes she passed a kidney stone but continues to have pain. Patient states that she's had nausea vomiting. She does have a history kidney stone. Patient was advised, emergency from via PCP. Patient reports no fever no chills no dysuria at this time. Patient does complain of suprapubic pain. - Related Data Home Medications Medication Instructions Recorded Confirmed Atorvastatin [Lipitor] 10 mg PO DAILY 12/14/17 03/06/18 SUMAtriptan SUCCINATE [Imitrex] 100 mg PO DAILY PRN 12/14/17 03/06/18 ARIPiprazole [Abilify] 10 mg PO HS 12/26/17 03/06/18 Albuterol Inhaler [Ventolin Hfa 2 puff INHALATION RT-QID PRN 01/15/18 03/06/18 Inhaler] Acetaminophen Tab [Tylenol] 650 mg PO Q6HR PRN 02/11/18 03/06/18 Atomoxetine HCl [Strattera] 25 mg PO QAM 02/14/18 03/06/18 Omeprazole [PriLOSEC] 20 mg PO AC-BID 02/14/18 03/06/18 Ranitidine HCl [Zantac] 300 mg PO DAILY 02/14/18 03/06/18 Previous Rx's Medication Instructions Recorded Escitalopram [Lexapro] 10 mg PO DAILY #14 tab 11/23/17 Ondansetron Odt [Zofran ODT] 4 mg PO Q8HR PRN #10 tab 01/25/18 Ibuprofen [Motrin] 600 mg PO Q8HR PRN #20 tab 02/17/18 Ketorolac [Toradol] 10 mg PO Q8HR #15 tab 03/06/18 Ondansetron Odt [Zofran Odt] 4 mg PO Q8HR PRN #10 tab 03/06/18 Allergies Allergy/AdvReac Type Severity Reaction Status Date / Time azithromycin Allergy Rash/Hives Verified 03/06/18 14:22 divalproex sodium Allergy "had Verified 03/06/18 14:22 [From Depakote] seizure when coming off" hydrocodone Allergy Rash/Hives Verified 03/06/18 14:22 Quinolones Allergy Rash/Hives Verified 03/06/18 14:22 sulfamethoxazole Allergy Rash/Hives Verified 03/06/18 14:22 [From Bactrim] tramadol Allergy Rash/Hives Verified 03/06/18 14:22 trimethoprim [From Bactrim] Allergy Rash/Hives Verified 03/06/18 14:22 codeine AdvReac Vertigo Verified 03/06/18 14:22 diphenhydramine HCl AdvReac Rapid Verified 03/06/18 14:22 [From Benadryl] Heart Rate egg AdvReac Nausea & Verified 03/06/18 14:22 Vomiting Influenza Virus Vaccines AdvReac Nausea & Verified 03/06/18 14:22 Vomiting Review of Systems ROS Statement: Those systems with pertinent positive or pertinent negative responses have been documented in the HPI. ROS Other: All systems not noted in ROS Statement are negative. Past Medical History Past Medical History: Asthma, Chest Pain / Angina, GERD/Reflux, Myocardial Infarction ([place]), Seizure Disorder, Syncope Additional Past Medical History / Comment(s): migraines, seizure 2 yrs ago from "depakote", [place] x 2, low blood pressures, irregular heart beat, tachycardia, Last Myocardial Infarction Date:: 10/2016 History of Any Multi-Drug Resistant Organisms: None Reported Past Surgical History: Cholecystectomy, Tubal Ligation Additional Past Surgical History / Comment(s): Tilt table test, wisdom teeth extraction. Past Anesthesia/Blood Transfusion Reactions: Previous Problems w/ Anesthesia Additional Past Anesthesia/Blood Transfusion Reaction / Comment(s): "I get anxious when I wake up when my fiance is not there" Past Psychological History: ADD/ADHD, Anxiety, Bipolar, Depression, PTSD Smoking Status: Former smoker Past Alcohol Use History: None Reported Past Drug Use History: None Reported - Past Family History Father Family Medical History: Cancer Additional Family Medical History / Comment(s): Father at age 61 from lung [place] Mother Family Medical History: No Reported History, Seizure Disorder Additional Family Medical History / Comment(s): Mother is alive with history of bipolar/schitzophrenia Brother(s) Additional Family Medical History / Comment(s): She has one half brother that abuses cocaine and methamphetamines. She does not have any contact with him. Patient has 1 sister with no major medical problems. Patient does not have any children. General Exam Limitations: no limitations General appearance: alert, in no apparent distress Head exam: Present: atraumatic, normocephalic, normal inspection Eye exam: Present: normal appearance, PERRL, EOMI. Absent: scleral icterus, conjunctival injection, periorbital swelling ENT exam: Present: normal exam, normal oropharynx, mucous membranes moist Neck exam: Present: normal inspection, full ROM. Absent: tenderness, meningismus, lymphadenopathy Respiratory exam: Present: normal lung sounds bilaterally. Absent: respiratory distress, wheezes, rales, rhonchi, stridor Cardiovascular Exam: Present: regular rate (patient was tachycardic on triage though normal rate on exam), normal rhythm, normal heart sounds. Absent: systolic murmur, diastolic murmur, rubs, gallop, clicks GI/Abdominal exam: Present: soft, tenderness (Mild suprapubic), normal bowel sounds. Absent: distended, guarding, rebound, rigid Back exam: Present: CVA tenderness (L). Absent: CVA tenderness (R) Skin exam: Present: warm, dry, intact, normal color. Absent: rash Course Vital Signs 03/06/18 13:38 Temperature 98.4 F Pulse Rate 122 H Respiratory 20 Rate Blood Pressure 107/75 O2 Sat by Pulse 99 Oximetry Medical Decision Making - Medical Decision Making 32-year-old female presented for left flank pain. Patient has no definite evidence of ureterolithiasis though she has a history. Patient will be discharged with Toradol or something is no signs of infection. Patient's laboratory does reveal mild elevation of LFTs though she no other quadrant abdominal tenderness and she has a history of this. Patient lab work otherwise unremarkable - Lab Data Result diagrams: 03/06/18 15:00 03/06/18 15:00 Lab Results 03/06/18 03/06/18 03/06/18 Range/Units 14:45 14:45 15:00 WBC (3.8-10.6) k/uL RBC (3.80-5.40) m/uL Hgb (11.4-16.0) gm/dL Hct (34.0-46.0) % MCV (80.0-100.0) fL MCH (25.0-35.0) pg MCHC (31.0-37.0) g/dL RDW (11.5-15.5) % Plt Count (150-450) k/uL Neutrophils % % Lymphocytes % % Monocytes % % Eosinophils % % Basophils % % Neutrophils # (1.3-7.7) k/uL Lymphocytes # (1.0-4.8) k/uL Monocytes # (0-1.0) k/uL Eosinophils # (0-0.7) k/uL Basophils # (0-0.2) k/uL Sodium 141 (137-145) mmol/L Potassium 3.5 (3.5-5.1) mmol/L Chloride 102 (98-107) mmol/L Carbon Dioxide 27 (22-30) mmol/L Anion Gap 12 mmol/L BUN 7 (7-17) mg/dL Creatinine 0.79 (0.52-1.04) mg/dL Est GFR (CKD-EPI)AfAm >90 (>60 ml/min/1.73 sqM) Est GFR (CKD-EPI)NonAf >90 (>60 ml/min/1.73 sqM) Glucose 107 H (74-99) mg/dL Calcium 9.3 (8.4-10.2) mg/dL Total Bilirubin 0.3 (0.2-1.3) mg/dL AST 94 H (14-36) U/L ALT 140 H (9-52) U/L Alkaline Phosphatase 75 (38-126) U/L Total Protein 7.2 (6.3-8.2) g/dL Albumin 4.1 (3.5-5.0) g/dL Amylase 59 (30-110) U/L Lipase 111 (23-300) U/L Urine Color Yellow Urine Appearance Clear (Clear) Urine pH 6.5 (5.0-8.0) Ur Specific [place] 1.016 (1.001-1.035) Urine Protein Trace H (Negative) Urine Glucose (UA) Negative (Negative) Urine Ketones Negative (Negative) Urine Blood Trace H (Negative) Urine Nitrite Negative (Negative) Urine Bilirubin Negative (Negative) Urine Urobilinogen <2.0 (<2.0) mg/dL Ur Leukocyte Esterase Negative (Negative) Urine RBC 4 (0-5) /hpf Urine WBC 2 (0-5) /hpf Ur Squamous Epith Cells 2 (0-4) /hpf Urine Mucus Rare H (None) /hpf Urine HCG, Qual Not Detected (Not Detectd) 03/06/18 Range/Units 15:00 WBC 6.8 (3.8-10.6) k/uL RBC 4.58 (3.80-5.40) m/uL Hgb 14.5 (11.4-16.0) gm/dL Hct 42.2 (34.0-46.0) % MCV 92.2 (80.0-100.0) fL MCH 31.6 (25.0-35.0) pg MCHC 34.2 (31.0-37.0) g/dL RDW 12.8 (11.5-15.5) % Plt Count 267 (150-450) k/uL Neutrophils % 71 % Lymphocytes % 19 % Monocytes % 7 % Eosinophils % 2 % Basophils % 0 % Neutrophils # 4.8 (1.3-7.7) k/uL Lymphocytes # 1.3 (1.0-4.8) k/uL Monocytes # 0.5 (0-1.0) k/uL Eosinophils # 0.1 (0-0.7) k/uL Basophils # 0.0 (0-0.2) k/uL Sodium (137-145) mmol/L Potassium (3.5-5.1) mmol/L Chloride (98-107) mmol/L Carbon Dioxide (22-30) mmol/L Anion Gap mmol/L BUN (7-17) mg/dL Creatinine (0.52-1.04) mg/dL Est GFR (CKD-EPI)AfAm (>60 ml/min/1.73 sqM) Est GFR (CKD-EPI)NonAf (>60 ml/min/1.73 sqM) Glucose (74-99) mg/dL Calcium (8.4-10.2) mg/dL Total Bilirubin (0.2-1.3) mg/dL AST (14-36) U/L ALT (9-52) U/L Alkaline Phosphatase (38-126) U/L Total Protein (6.3-8.2) g/dL Albumin (3.5-5.0) g/dL Amylase (30-110) U/L Lipase (23-300) U/L Urine Color Urine Appearance (Clear) Urine pH (5.0-8.0) Ur Specific [place] (1.001-1.035) Urine Protein (Negative) Urine Glucose (UA) (Negative) Urine Ketones (Negative) Urine Blood (Negative) Urine Nitrite (Negative) Urine Bilirubin (Negative) Urine Urobilinogen (<2.0) mg/dL Ur Leukocyte Esterase (Negative) Urine RBC (0-5) /hpf Urine WBC (0-5) /hpf Ur Squamous Epith Cells (0-4) /hpf Urine Mucus (None) /hpf Urine HCG, Qual (Not Detectd) Disposition Clinical Impression: Left flank pain Disposition: HOME SELF-CARE Condition: Stable Instructions: Flank Pain (ED) Additional Instructions: Please return to the Emergency Department if symptoms worsen or any other concerns. Prescriptions: Ketorolac [Toradol] 10 mg PO Q8HR #15 tab Ondansetron Odt [Zofran Odt] 4 mg PO Q8HR PRN #10 tab PRN Reason: Nausea Is patient prescribed a controlled substance at d/c from ED?: No Referrals: Cecile Wright MD [Primary Care Provider] - 1-2 days Time of Disposition: 15:38
[2018-03-06 14:59] LABS: Appearance,Urine Clear (Clear); Bilirubin,Urine Negative (Negative); Blood,Urine Trace (Negative); Color,Urine Yellow; Glucose,Urine (UA) Negative (Negative); Ketones,Urine Negative (Negative); Leukocyte Esterase,Urine Negative (Negative); Mucus,Urine Rare /hpf; Nitrite,Urine Negative (Negative); PH, Urine 6.5 (5.0-8.0); Protein,Urine Trace (Negative); RBC,Urine 4 /hpf (0-5); Specific Gravity,Urine 1.016 (1.001-1.035); Squamous Epithelial Cell,Urine 2 /hpf (0-4); Urobilinogen,Urine <2.0 mg/dL (<2.0); WBC,Urine 2 /hpf (0-5)
--- NOTE | 2018-03-06 15:12 | XR ---
EXAMINATION TYPE: XR KUB DATE OF EXAM: 03/06/2018 3:08 PM CLINICAL HISTORY: Flank pain with hematuria and pain during urination TECHNIQUE: Two Upright KUB images of the abdomen are obtained. COMPARISON: Prior abdominal x-ray November 21, 2017. Prior CT March 28, 2017. FINDINGS: Scattered gas is seen in non-distended small bowel loops. Gas and fecal material is seen in non-distended colon. Tubal ligation clips in the pelvis are redemonstrated. Cholecystectomy clips ar e redemonstrated. Lung bases are clear. No pneumoperitoneum is present. IMPRESSION: No definite nephrolithiasis. Overall nonobstructive bowel gas pattern.
[2018-03-06 15:16] LABS: Basophils % (A) 0 %; Eosinophils # (A) 0.1 k/uL (0-0.7); Eosinophils % (A) 2 %; HCT 42.2 % (34.0-46.0); HGB 14.5 gm/dL (11.4-16.0); Lymphocytes # (A) 1.3 k/uL (1.0-4.8); Lymphocytes % (A) 19 %; MCH 31.6 pg (25.0-35.0); MCHC 34.2 g/dL (31.0-37.0); MCV 92.2 fL (80.0-100.0); Mean Platelet Volume 6.3; Monocytes # (A) 0.5 k/uL (0-1.0); Monocytes % (A) 7 %; Neutrophils # (A) 4.8 k/uL (1.3-7.7); Neutrophils % (A) 71 %; Platelet Count 267 k/uL (150-450); RBC 4.58 m/uL (3.80-5.40); RDW 12.8 % (11.5-15.5); WBC 6.8 k/uL (3.8-10.6)
[2018-03-06 15:26] LABS: ALT 140 U/L (9-52); AST 94 U/L (14-36); Albumin 4.1 g/dL (3.5-5.0); Alkaline Phosphatase 75 U/L (38-126); Amylase 59 U/L (30-110); Anion Gap 12 mmol/L; Blood Urea Nitrogen 7 mg/dL (7-17); Calcium 9.3 mg/dL (8.4-10.2); Carbon Dioxide 27 mmol/L (22-30); Chloride 102 mmol/L (98-107); Glucose 107 mg/dL (74-99); Lipase 111 U/L (23-300); Potassium 3.5 mmol/L (3.5-5.1); Sodium 141 mmol/L (137-145); Total Bilirubin 0.3 mg/dL (0.2-1.3); Total Protein 7.2 g/dL (6.3-8.2)
[2018-03-06 16:39] VITALS: BP 132/56; PULSE 88; TEMP 98.3
== END 2018-03-06 16:35 | disposition home or self-care (01) ==
LOC: EC 13:32
DX: R10.30 Lower abdominal pain, unspecified (principal); R79.89 Other specified abnormal findings of blood chemistry; R11.2 Nausea with vomiting, unspecified; J45.909 Unspecified asthma, uncomplicated; K21.9 Gastro-esophageal reflux disease without esophagitis; F31.9 Bipolar disorder, unspecified; F90.9 Attention-deficit hyperactivity disorder, unspecified type; Z87.891 Personal history of nicotine dependence; Z79.899 Other long term (current) drug therapy; Z88.1 Allergy status to other antibiotic agents; Z88.5 Allergy status to narcotic agent; Z88.7 Allergy status to serum and vaccine; Z88.8 Allergy status to other drugs, medicaments and biological substances; Z91.012 Allergy to eggs; Z90.49 Acquired absence of other specified parts of digestive tract
CPT/HCPCS: 36415; 80053; 82150; 83690; 85025; 81001; 81025; 74018; 99284; 96374; 96375; 96361; J2405; J1885

== ENCOUNTER 2018-03-10 21:03 | Emergency (ER) | payer OTHER ==
--- NOTE | 2018-03-10 21:36 | ED ---
Seizure HPI - General Chief Complaint: Seizure Stated Complaint: Seizure Time Seen by Provider: 03/10/18 21:16 Source: patient Mode of arrival: EMS Limitations: no limitations - History of Present Illness Initial Comments: 's patient is a 32-year-old woman who presents after she had "a couple of seizures" at home today. The patient does have previous history of seizure disorder. She states that she is supposed to be taking Keppra but has run out of this "a while ago." The patient denies any trauma or injury as a result of the seizure. She states that she does feel like she is back at her baseline. Complaint: seizure -: hour(s) Description of Episode: loss of consciousness, tonic-clonic movement -: second(s) Witnessed: yes - by bystander Trauma: No Seizure History: known seizure disorder Place: home Possible Precipitating Event: other Associated Symptoms: denies other symptoms Treatments Prior to Arrival: none - Related Data Home Medications Medication Instructions Recorded Confirmed Atorvastatin [Lipitor] 10 mg PO DAILY 12/14/17 03/10/18 SUMAtriptan SUCCINATE [Imitrex] 100 mg PO DAILY PRN 12/14/17 03/10/18 ARIPiprazole [Abilify] 10 mg PO HS 12/26/17 03/10/18 Albuterol Inhaler [Ventolin Hfa 2 puff INHALATION RT-QID PRN 01/15/18 03/10/18 Inhaler] Acetaminophen Tab [Tylenol] 650 mg PO Q6HR PRN 02/11/18 03/10/18 Atomoxetine HCl [Strattera] 25 mg PO QAM 02/14/18 03/10/18 Omeprazole [PriLOSEC] 20 mg PO AC-BID 02/14/18 03/10/18 Ranitidine HCl [Zantac] 300 mg PO DAILY 02/14/18 03/10/18 Previous Rx's Medication Instructions Recorded Escitalopram [Lexapro] 10 mg PO DAILY #14 tab 11/23/17 Ibuprofen [Motrin] 600 mg PO Q8HR PRN #20 tab 02/17/18 Ketorolac [Toradol] 10 mg PO Q8HR #15 tab 03/06/18 Ondansetron Odt [Zofran Odt] 4 mg PO Q8HR PRN #10 tab 06/14/18 levETIRAcetam [Keppra] 500 mg PO Q12HR #30 tab 03/10/18 Allergies Allergy/AdvReac Type Severity Reaction Status Date / Time azithromycin Allergy Rash/Hives Verified 03/10/18 21:25 divalproex sodium Allergy "had Verified 03/10/18 21:25 [From Depakote] seizure when coming off" hydrocodone Allergy Rash/Hives Verified 03/10/18 21:25 Quinolones Allergy Rash/Hives Verified 03/10/18 21:25 sulfamethoxazole Allergy Rash/Hives Verified 03/10/18 21:25 [From Bactrim] tramadol Allergy Rash/Hives Verified 03/10/18 21:25 trimethoprim [From Bactrim] Allergy Rash/Hives Verified 03/10/18 21:25 codeine AdvReac Vertigo Verified 03/10/18 21:25 diphenhydramine HCl AdvReac Rapid Verified 03/10/18 21:25 [From Benadryl] Heart Rate egg AdvReac Nausea & Verified 03/10/18 21:25 Vomiting Influenza Virus Vaccines AdvReac Nausea & Verified 03/10/18 21:25 Vomiting Review of Systems ROS Statement: Those systems with pertinent positive or pertinent negative responses have been documented in the HPI. ROS Other: All systems not noted in ROS Statement are negative. Constitutional: Denies: fever Eyes: Denies: eye pain, vision change Respiratory: Denies: cough, dyspnea Cardiovascular: Denies: chest pain, palpitations, syncope Gastrointestinal: Denies: abdominal pain, nausea, vomiting Genitourinary: Denies: dysuria Musculoskeletal: Denies: back pain Skin: Denies: rash Neurological: Denies: headache, weakness, numbness, confusion Past Medical History Past Medical History: Asthma, Chest Pain / Angina, GERD/Reflux, Myocardial Infarction ([place]), Seizure Disorder, Syncope Additional Past Medical History / Comment(s): migraines, seizure 2 yrs ago from "depakote", CT x 2, low blood pressures, irregular heart beat, tachycardia, Last Myocardial Infarction Date:: 10/2016 History of Any Multi-Drug Resistant Organisms: None Reported Past Surgical History: Cholecystectomy, Tubal Ligation Additional Past Surgical History / Comment(s): Tilt table test, wisdom teeth extraction. Past Anesthesia/Blood Transfusion Reactions: Previous Problems w/ Anesthesia Additional Past Anesthesia/Blood Transfusion Reaction / Comment(s): "I get anxious when I wake up when my fiance is not there" Past Psychological History: ADD/ADHD, Anxiety, Bipolar, Depression, PTSD Smoking Status: Former smoker Past Alcohol Use History: None Reported Past Drug Use History: None Reported - Past Family History Father Family Medical History: Cancer Additional Family Medical History / Comment(s): Father at age 61 from lung CA Mother Family Medical History: No Reported History, Seizure Disorder Additional Family Medical History / Comment(s): Mother is alive with history of bipolar/schitzophrenia Brother(s) Additional Family Medical History / Comment(s): She has one half brother that abuses cocaine and methamphetamines. She does not have any contact with him. Patient has 1 sister with no major medical problems. Patient does not have any children. General Exam Limitations: no limitations General appearance: alert, in no apparent distress Head exam: Present: atraumatic, normocephalic Eye exam: Present: normal appearance, PERRL, EOMI. Absent: scleral icterus, conjunctival injection ENT exam: Present: normal oropharynx Neck exam: Present: normal inspection, full ROM Respiratory exam: Present: normal lung sounds bilaterally. Absent: respiratory distress, wheezes, rales, rhonchi, stridor Cardiovascular Exam: Present: regular rate, normal rhythm, normal heart sounds. Absent: systolic murmur, diastolic murmur, rubs, gallop GI/Abdominal exam: Present: soft. Absent: distended, tenderness, guarding, rebound Extremities exam: Present: normal inspection, normal capillary refill. Absent: pedal edema, calf tenderness Back exam: Present: normal inspection. Absent: CVA tenderness (R), CVA tenderness (L), vertebral tenderness Neurological exam: Present: alert, oriented X3, CN II-XII intact. Absent: motor sensory deficit Skin exam: Present: warm, dry, intact, normal color. Absent: rash Course Vital Signs 03/10/18 03/10/18 21:08 22:04 Temperature 97.9 F Pulse Rate 93 98 Respiratory 16 Rate Blood Pressure 108/64 119/75 O2 Sat by Pulse 97 97 Oximetry Medical Decision Making - Lab Data Result diagrams: 03/10/18 21:17 03/10/18 21:17 Lab Results 03/10/18 03/10/18 03/10/18 Range/Units 21:17 21:17 21:19 WBC 7.2 (3.8-10.6) k/uL RBC 4.18 (3.80-5.40) m/uL Hgb 13.2 (11.4-16.0) gm/dL Hct 38.6 (34.0-46.0) % MCV 92.2 (80.0-100.0) fL MCH 31.5 (25.0-35.0) pg MCHC 34.1 (31.0-37.0) g/dL RDW 13.1 (11.5-15.5) % Plt Count 277 (150-450) k/uL Neutrophils % 51 % Lymphocytes % 36 % Monocytes % 8 % Eosinophils % 2 % Basophils % 0 % Neutrophils # 3.7 (1.3-7.7) k/uL Lymphocytes # 2.6 (1.0-4.8) k/uL Monocytes # 0.6 (0-1.0) k/uL Eosinophils # 0.1 (0-0.7) k/uL Basophils # 0.0 (0-0.2) k/uL Sodium 139 (137-145) mmol/L Potassium 3.6 (3.5-5.1) mmol/L Chloride 107 (98-107) mmol/L Carbon Dioxide 23 (22-30) mmol/L Anion Gap 9 mmol/L BUN 15 (7-17) mg/dL Creatinine 0.80 (0.52-1.04) mg/dL Est GFR (CKD-EPI)AfAm >90 (>60 ml/min/1.73 sqM) Est GFR (CKD-EPI)NonAf >90 (>60 ml/min/1.73 sqM) Glucose 96 (74-99) mg/dL Calcium 9.4 (8.4-10.2) mg/dL Total Bilirubin <0.1 L (0.2-1.3) mg/dL AST 28 (14-36) U/L ALT 68 H (9-52) U/L Alkaline Phosphatase 67 (38-126) U/L Total Protein 6.4 (6.3-8.2) g/dL Albumin 3.5 (3.5-5.0) g/dL Urine HCG, Qual (Not Detectd) Urine Opiates Screen Not Detected (NotDetected) Ur Oxycodone Screen Not Detected (NotDetected) Urine Methadone Screen Not Detected (NotDetected) Ur Propoxyphene Screen Not Detected (NotDetected) Ur Barbiturates Screen Not Detected (NotDetected) U Tricyclic Antidepress Not Detected (NotDetected) Ur Phencyclidine Scrn Not Detected (NotDetected) Ur Amphetamines Screen Not Detected (NotDetected) U Methamphetamines Scrn Not Detected (NotDetected) U Benzodiazepines Scrn Not Detected (NotDetected) Urine Cocaine Screen Not Detected (NotDetected) U Marijuana (THC) Screen Not Detected (NotDetected) 03/10/18 Range/Units 21:19 WBC (3.8-10.6) k/uL RBC (3.80-5.40) m/uL Hgb (11.4-16.0) gm/dL Hct (34.0-46.0) % MCV (80.0-100.0) fL MCH (25.0-35.0) pg MCHC (31.0-37.0) g/dL RDW (11.5-15.5) % Plt Count (150-450) k/uL Neutrophils % % Lymphocytes % % Monocytes % % Eosinophils % % Basophils % % Neutrophils # (1.3-7.7) k/uL Lymphocytes # (1.0-4.8) k/uL Monocytes # (0-1.0) k/uL Eosinophils # (0-0.7) k/uL Basophils # (0-0.2) k/uL Sodium (137-145) mmol/L Potassium (3.5-5.1) mmol/L Chloride (98-107) mmol/L Carbon Dioxide (22-30) mmol/L Anion Gap mmol/L BUN (7-17) mg/dL Creatinine (0.52-1.04) mg/dL Est GFR (CKD-EPI)AfAm (>60 ml/min/1.73 sqM) Est GFR (CKD-EPI)NonAf (>60 ml/min/1.73 sqM) Glucose (74-99) mg/dL Calcium (8.4-10.2) mg/dL Total Bilirubin (0.2-1.3) mg/dL AST (14-36) U/L ALT (9-52) U/L Alkaline Phosphatase (38-126) U/L Total Protein (6.3-8.2) g/dL Albumin (3.5-5.0) g/dL Urine HCG, Qual Not Detected (Not Detectd) Urine Opiates Screen (NotDetected) Ur Oxycodone Screen (NotDetected) Urine Methadone Screen (NotDetected) Ur Propoxyphene Screen (NotDetected) Ur Barbiturates Screen (NotDetected) U Tricyclic Antidepress (NotDetected) Ur Phencyclidine Scrn (NotDetected) Ur Amphetamines Screen (NotDetected) U Methamphetamines Scrn (NotDetected) U Benzodiazepines Scrn (NotDetected) Urine Cocaine Screen (NotDetected) U Marijuana (THC) Screen (NotDetected) - EKG Data -: EKG Interpreted by [facility] EKG shows normal: sinus rhythm, axis (Normal), intervals (Normal), QRS complexes (Left anterior fascicular block. Low voltage QRS complexes), ST-T waves (Normal) Rate: normal (Rate 94 bpm) Interpretation: other (Left anterior fascicular block.) Disposition Clinical Impression: Generalized seizure Disposition: HOME SELF-CARE Condition: Good Instructions: Recurrent Seizures in Adults (ED) Prescriptions: levETIRAcetam [Keppra] 500 mg PO Q12HR #30 tab Is patient prescribed a controlled substance at d/c from ED?: No Referrals: Cecile Wright MD [Primary Care Provider] - 1-2 days Rosi Romero MD [STAFF PHYSICIAN] - 1-2 days
[2018-03-10] MEDS ORDERED: levETIRAcetam 500 MG TAB PO STA (21:39)
[2018-03-10 21:44] LABS: Basophils % (A) 0 %; Eosinophils # (A) 0.1 k/uL (0-0.7); Eosinophils % (A) 2 %; HCT 38.6 % (34.0-46.0); HGB 13.2 gm/dL (11.4-16.0); Lymphocytes # (A) 2.6 k/uL (1.0-4.8); Lymphocytes % (A) 36 %; MCH 31.5 pg (25.0-35.0); MCHC 34.1 g/dL (31.0-37.0); MCV 92.2 fL (80.0-100.0); Mean Platelet Volume 6.6; Monocytes # (A) 0.6 k/uL (0-1.0); Monocytes % (A) 8 %; Neutrophils # (A) 3.7 k/uL (1.3-7.7); Neutrophils % (A) 51 %; Platelet Count 277 k/uL (150-450); RBC 4.18 m/uL (3.80-5.40); RDW 13.1 % (11.5-15.5); WBC 7.2 k/uL (3.8-10.6)
[2018-03-10 21:53] LABS: ALT 68 U/L (9-52); AST 28 U/L (14-36); Albumin 3.5 g/dL (3.5-5.0); Alkaline Phosphatase 67 U/L (38-126); Anion Gap 9 mmol/L; Blood Urea Nitrogen 15 mg/dL (7-17); Calcium 9.4 mg/dL (8.4-10.2); Carbon Dioxide 23 mmol/L (22-30); Chloride 107 mmol/L (98-107); Glucose 96 mg/dL (74-99); Potassium 3.6 mmol/L (3.5-5.1); Sodium 139 mmol/L (137-145); Total Bilirubin <0.1 mg/dL (0.2-1.3); Total Protein 6.4 g/dL (6.3-8.2)
[2018-03-10 22:06] VITALS: PULSE 98
[2018-03-10 22:09] LABS: Amphetamine Screen,Urine Not Detected (NotDetected); Barbiturate Screen,Urine Not Detected (NotDetected); Benzodiazepines Screen,Urine Not Detected (NotDetected); Cocaine Screen,Urine Not Detected (NotDetected); Methadone Screen, Urine Not Detected (NotDetected); Opiate Screen,Urine Not Detected (NotDetected); Oxycodone Screen, Urine Not Detected (NotDetected); Phencyclidine Screen,Urine Not Detected (NotDetected); Tricyclic Antidepressant,Urine Not Detected (NotDetected); Urn Cannabinoid Scrn Not Detected (NotDetected)
[2018-03-10 22:34] VITALS: BP 108/67; RESP 17; TEMP 97.1
== END 2018-03-10 22:34 | disposition home or self-care (01) ==
LOC: EC 21:03
DX: G40.909 Epilepsy, unspecified, not intractable, without status epilepticus (principal); J45.909 Unspecified asthma, uncomplicated; K21.9 Gastro-esophageal reflux disease without esophagitis; F90.9 Attention-deficit hyperactivity disorder, unspecified type; F41.9 Anxiety disorder, unspecified; F31.9 Bipolar disorder, unspecified; F43.10 Post-traumatic stress disorder, unspecified; Z87.891 Personal history of nicotine dependence; Z86.69 Personal history of other diseases of the nervous system and sense organs; Z79.899 Other long term (current) drug therapy; Z88.1 Allergy status to other antibiotic agents; Z88.2 Allergy status to sulfonamides; Z88.5 Allergy status to narcotic agent; Z88.7 Allergy status to serum and vaccine; Z88.8 Allergy status to other drugs, medicaments and biological substances; Z91.012 Allergy to eggs
CPT/HCPCS: 36415; 80053; 80306; 81025; 85025; 93005; 99284

== ENCOUNTER 2018-03-14 11:12 | Emergency (ER) | payer OTHER ==
[2018-03-14 11:24] VITALS: BP 107/72; PULSE 103; RESP 20; TEMP 98
--- NOTE | 2018-03-14 12:20 | ED ---
General Adult HPI - General Chief complaint: Extremity Injury, Lower Stated complaint: Knee injury Time Seen by Provider: 03/14/18 12:03 Source: patient, RN notes reviewed Mode of arrival: wheelchair Limitations: no limitations - History of Present Illness Initial comments: 32-year-old female presents to the emergency department for a chief complaint of left knee pain times one day. Patient states she was dancing yesterday when she injured her left knee. Patient did not fall but states she twisted the left knee. Patient states it is painful to walk on. Patient states it is also painful to touch. Patient denies any other injuries. Patient denies pain in the left hip calf or foot. Patient has no other complaints at this time including shortness of breath, chest pain, abdominal pain, nausea or vomiting, headache, or visual changes. - Related Data Home Medications Medication Instructions Recorded Confirmed Atorvastatin [Lipitor] 10 mg PO DAILY 12/14/17 03/14/18 SUMAtriptan SUCCINATE [Imitrex] 100 mg PO DAILY PRN 12/14/17 03/14/18 ARIPiprazole [Abilify] 10 mg PO HS 12/26/17 03/14/18 Albuterol Inhaler [Ventolin Hfa 2 puff INHALATION RT-QID PRN 01/15/18 03/14/18 Inhaler] Acetaminophen Tab [Tylenol] 650 mg PO Q6HR PRN 02/11/18 03/14/18 Atomoxetine HCl [Strattera] 25 mg PO QAM 02/14/18 03/14/18 Omeprazole [PriLOSEC] 20 mg PO AC-BID 02/14/18 03/14/18 Ranitidine HCl [Zantac] 300 mg PO DAILY 02/14/18 03/14/18 Previous Rx's Medication Instructions Recorded Escitalopram [Lexapro] 10 mg PO DAILY #14 tab 11/23/17 Ibuprofen [Motrin] 600 mg PO Q8HR PRN #20 tab 02/17/18 Ondansetron Odt [Zofran Odt] 4 mg PO Q8HR PRN #10 tab 03/06/18 levETIRAcetam [Keppra] 500 mg PO Q12HR #30 tab 03/10/18 Ibuprofen [Motrin] 600 mg PO Q8HR PRN #20 tab 03/14/18 Allergies Allergy/AdvReac Type Severity Reaction Status Date / Time azithromycin Allergy Rash/Hives Verified 03/14/18 12:15 divalproex sodium Allergy "had Verified 03/14/18 12:15 [From Depakote] seizure when coming off" hydrocodone Allergy Rash/Hives Verified 03/14/18 12:15 Quinolones Allergy Rash/Hives Verified 03/14/18 12:15 sulfamethoxazole Allergy Rash/Hives Verified 03/14/18 12:15 [From Bactrim] tramadol Allergy Rash/Hives Verified 03/14/18 12:15 trimethoprim [From Bactrim] Allergy Rash/Hives Verified 03/14/18 12:15 codeine AdvReac Vertigo Verified 03/14/18 12:15 diphenhydramine HCl AdvReac Rapid Verified 03/14/18 12:15 [From Benadryl] Heart Rate egg AdvReac Nausea & Verified 03/14/18 12:15 Vomiting Influenza Virus Vaccines AdvReac Nausea & Verified 03/14/18 12:15 Vomiting Review of Systems ROS Statement: Those systems with pertinent positive or pertinent negative responses have been documented in the HPI. ROS Other: All systems not noted in ROS Statement are negative. Past Medical History Past Medical History: Asthma, Chest Pain / Angina, GERD/Reflux, Myocardial Infarction ([place]), Seizure Disorder, Syncope Additional Past Medical History / Comment(s): migraines, seizure 2 yrs ago from "depakote", [place] x 2, low blood pressures, irregular heart beat, tachycardia, Last Myocardial Infarction Date:: 10/2016 History of Any Multi-Drug Resistant Organisms: None Reported Past Surgical History: Cholecystectomy, Tubal Ligation Additional Past Surgical History / Comment(s): Tilt table test, wisdom teeth extraction. Past Anesthesia/Blood Transfusion Reactions: Previous Problems w/ Anesthesia Additional Past Anesthesia/Blood Transfusion Reaction / Comment(s): "I get anxious when I wake up when my fiance is not there" Past Psychological History: ADD/ADHD, Anxiety, Bipolar, Depression, PTSD Smoking Status: Former smoker Past Alcohol Use History: None Reported Past Drug Use History: None Reported - Past Family History Father Family Medical History: Cancer Additional Family Medical History / Comment(s): Father at age 61 from lung [place] Mother Family Medical History: No Reported History, Seizure Disorder Additional Family Medical History / Comment(s): Mother is alive with history of bipolar/schitzophrenia Brother(s) Additional Family Medical History / Comment(s): She has one half brother that abuses cocaine and methamphetamines. She does not have any contact with him. Patient has 1 sister with no major medical problems. Patient does not have any children. General Exam Limitations: no limitations General appearance: alert, in no apparent distress Head exam: Present: atraumatic, normocephalic, normal inspection Eye exam: Present: normal appearance ENT exam: Present: normal exam, mucous membranes moist Neck exam: Present: normal inspection. Absent: tenderness, meningismus, lymphadenopathy Respiratory exam: Present: normal lung sounds bilaterally. Absent: respiratory distress, wheezes, rales, rhonchi, stridor Cardiovascular Exam: Present: regular rate, normal rhythm, normal heart sounds. Absent: systolic murmur, diastolic murmur, rubs, gallop, clicks Extremities exam: Present: tenderness (Patient has tenderness to the anterior aspect of the left knee), normal capillary refill (Refill less than 2 seconds and pedal pulse 2+ in the left lower extremity), other (Sensation intact in the left lower extremity). Absent: full ROM (Patient refuses to bend the knee, patient is able to fully extend of the left knee. Patient has full range of motion of the left ankle and foot.), joint swelling (There is absolutely no swelling or ecchymosis or erythema noted of the left knee. No signs of external trauma.), calf tenderness (No calf tenderness, erythema, edema, or warmth in the left calf) Course Vital Signs 03/14/18 11:22 Temperature 98 F Pulse Rate 103 H Respiratory 20 Rate Blood Pressure 107/72 O2 Sat by Pulse 99 Oximetry Medical Decision Making - Medical Decision Making 32-year-old female presents to the emergency department for a chief complaint of left knee pain times one day. Patient was dancing when she twisted the knee. Patient did not fall or hit her head. Patient sustained no other injuries. On exam patient does refuse to bend the knee. Patient has full extension of the knee. Tenderness to the anterior aspect of the knee. Neurovascular intact in the left lower extremity. Full range of motion of the ankle and foot without tenderness. No tenderness, swelling, or warmth in the calf. Negative Karsten's sign. This is patient's fifth visit to the emergency department this month for a variety of complaints. Knee x-ray shows no acute fracture or dislocation in the left knee. Patient will follow up with primary care for this. On reexamination patient demonstrated that she can walk on the left knee. Knee was Mann wrapped. Patient will be prescribed Motrin. Patient states she has crutches and a brace at home. She was educated on rice therapy she will return if she has any worsening symptoms. Disposition Clinical Impression: Knee pain, left Disposition: HOME SELF-CARE Condition: Good Instructions: Knee Pain (ED), RICE Therapy (ED) Additional Instructions: Please take Motrin for pain. Please rest ice and elevate the left knee. Use crutches as necessary. Return to the emergency department if you have any worsening symptoms. Otherwise follow-up with primary care in 1-2 days. Prescriptions: Ibuprofen [Motrin] 600 mg PO Q8HR PRN #20 tab PRN Reason: Pain Is patient prescribed a controlled substance at d/c from ED?: No Referrals: Ceclie Wright MD [Primary Care Provider] - 1-2 days Time of Disposition: 13:20
--- NOTE | 2018-03-14 12:43 | XR ---
EXAMINATION TYPE: XR knee complete LT DATE OF EXAM: 03/14/2018 COMPARISON: NONE HISTORY: Pain TECHNIQUE: Four views are submitted. FINDINGS: Joint spaces are preserved. Osseous structures are intact. No acute fracture seen. IMPRESSION: 1. No acute fracture or dislocation.
== END 2018-03-14 13:32 | disposition home or self-care (01) ==
LOC: EC 11:12
DX: M25.562 Pain in left knee (principal); K21.9 Gastro-esophageal reflux disease without esophagitis; I25.2 Old myocardial infarction; G40.909 Epilepsy, unspecified, not intractable, without status epilepticus; F90.9 Attention-deficit hyperactivity disorder, unspecified type; F31.9 Bipolar disorder, unspecified; F41.9 Anxiety disorder, unspecified; F43.10 Post-traumatic stress disorder, unspecified; Z87.891 Personal history of nicotine dependence; Z79.899 Other long term (current) drug therapy; Z91.012 Allergy to eggs; Z88.7 Allergy status to serum and vaccine; Z88.1 Allergy status to other antibiotic agents; Z88.5 Allergy status to narcotic agent; Z88.2 Allergy status to sulfonamides; Z88.6 Allergy status to analgesic agent; Z88.8 Allergy status to other drugs, medicaments and biological substances; X50.1XXA Overexertion from prolonged static or awkward postures, initial encounter; Y93.41 Activity, dancing
CPT/HCPCS: 99283

== ENCOUNTER 2018-03-20 20:50 | Emergency (ER) | payer OTHER ==
[2018-03-20 20:55] VITALS: BP 110/74; PULSE 106; RESP 20; TEMP 98.8
--- NOTE | 2018-03-20 21:34 | ED ---
General Adult HPI - General Chief complaint: Extremity Injury, Lower Stated complaint: knee injury Time Seen by Provider: 03/20/18 21:02 Source: patient, EMS, RN notes reviewed Mode of arrival: wheelchair Limitations: no limitations - History of Present Illness Initial comments: Patient 32-year-old female presenting to the emergency room today with a chief complaint of pain to the left knee. She states she went to stand up and felt a pop the left knee. She does admit that she's been having problems with the left knee. She does not that she does have an appointment with orthopedics. She states she does have a knee immobilizer at home but did not have it on earlier. Patient denies any other complaints. Patient denies any recent fever, chills, shortness of breath, chest pain, back pain, abdominal pain, headaches or visual changes, or any other complaints. - Related Data Home Medications Medication Instructions Recorded Confirmed Atorvastatin [Lipitor] 10 mg PO DAILY 12/14/17 03/20/18 SUMAtriptan SUCCINATE [Imitrex] 100 mg PO DAILY PRN 12/14/17 03/20/18 Albuterol Inhaler [Ventolin Hfa 2 puff INHALATION RT-QID PRN 01/15/18 03/20/18 Inhaler] Acetaminophen Tab [Tylenol] 650 mg PO Q6HR PRN 02/11/18 03/20/18 Atomoxetine HCl [Strattera] 25 mg PO QAM 02/14/18 03/20/18 Omeprazole [PriLOSEC] 20 mg PO AC-BID 02/14/18 03/20/18 Ranitidine HCl [Zantac] 300 mg PO DAILY 02/14/18 03/20/18 ARIPiprazole [Abilify] 10 mg PO DAILY 03/20/18 03/20/18 Previous Rx's Medication Instructions Recorded Escitalopram [Lexapro] 10 mg PO DAILY #14 tab 11/23/17 Ondansetron Odt [Zofran Odt] 4 mg PO Q8HR PRN #10 tab 03/06/18 levETIRAcetam [Keppra] 500 mg PO Q12HR #30 tab 03/10/18 Ibuprofen [Motrin] 600 mg PO Q8HR PRN #20 tab 03/14/18 Ibuprofen [Motrin] 800 mg PO Q6HR #30 tab 03/20/18 Allergies Allergy/AdvReac Type Severity Reaction Status Date / Time azithromycin Allergy Rash/Hives Verified 03/20/18 20:59 divalproex sodium Allergy "had Verified 03/20/18 20:59 [From Depakote] seizure when coming off" hydrocodone Allergy Rash/Hives Verified 03/20/18 20:59 Quinolones Allergy Rash/Hives Verified 03/20/18 20:59 sulfamethoxazole Allergy Rash/Hives Verified 03/20/18 20:59 [From Bactrim] tramadol Allergy Rash/Hives Verified 03/20/18 20:59 trimethoprim [From Bactrim] Allergy Rash/Hives Verified 03/20/18 20:59 codeine AdvReac Vertigo Verified 03/20/18 20:59 diphenhydramine HCl AdvReac Rapid Verified 03/20/18 20:59 [From Benadryl] Heart Rate egg AdvReac Nausea & Verified 03/20/18 20:59 Vomiting Influenza Virus Vaccines AdvReac Nausea & Verified 03/20/18 20:59 Vomiting Review of Systems ROS Statement: Those systems with pertinent positive or pertinent negative responses have been documented in the HPI. ROS Other: All systems not noted in ROS Statement are negative. Past Medical History Past Medical History: Asthma, Chest Pain / Angina, GERD/Reflux, Myocardial Infarction ([place]), Seizure Disorder, Syncope Additional Past Medical History / Comment(s): migraines, seizure 2 yrs ago from "depakote", [place] x 2, low blood pressures, irregular heart beat, tachycardia, Last Myocardial Infarction Date:: 10/2016 History of Any Multi-Drug Resistant Organisms: None Reported Past Surgical History: Cholecystectomy, Tubal Ligation Additional Past Surgical History / Comment(s): Tilt table test, wisdom teeth extraction. Past Anesthesia/Blood Transfusion Reactions: Previous Problems w/ Anesthesia Additional Past Anesthesia/Blood Transfusion Reaction / Comment(s): "I get anxious when I wake up when my fiance is not there" Past Psychological History: ADD/ADHD, Anxiety, Bipolar, Depression, PTSD Smoking Status: Former smoker Past Alcohol Use History: None Reported Past Drug Use History: None Reported - Past Family History Father Family Medical History: Cancer Additional Family Medical History / Comment(s): Father at age 61 from lung [place] Mother Family Medical History: No Reported History, Seizure Disorder Additional Family Medical History / Comment(s): Mother is alive with history of bipolar/schitzophrenia Brother(s) Additional Family Medical History / Comment(s): She has one half brother that abuses cocaine and methamphetamines. She does not have any contact with him. Patient has 1 sister with no major medical problems. Patient does not have any children. General Exam - General Exam Comments Initial Comments: General: The patient is awake and alert, in no distress, and does not appear acutely ill. Neck: The neck is supple, there is no tenderness or JVD. Cardiovascular: There is a regular rate and rhythm. No murmur, rub or gallop is appreciated. Respiratory: Lungs are clear to auscultation, respirations are non-labored, breath sounds are equal. No wheezes, stridor, rales, or rhonchi. Musculoskeletal: Patient does have normal appearance of the left knee no obvious deformity. Patient shows limited range of motion of flexion and extension due to pain in the left knee. Tender over the anterior aspect. Patient has normal appearance of the left foot no obvious deformity doesn't pain on palpation over the proximal fifth metatarsal. No tenderness to the left ankle. Sensations intact. Pedal pulse 2+. Neurological: A&O x 3. CN II-XII intact, There are no obvious motor or sensory deficits. Coordination appears grossly intact. Speech is normal. Skin: Skin is warm and dry and no rashes or lesions are noted. Psychiatric: Normal mood and affect. Limitations: no limitations Course Vital Signs 03/20/18 20:53 Temperature 98.8 F Pulse Rate 106 H Respiratory 20 Rate Blood Pressure 110/74 O2 Sat by Pulse 99 Oximetry Medical Decision Making - Medical Decision Making X-rays are negative for any acute fracture dislocation. Patient does have knee immobilizer last home that she is advised to use when up and moving around. Advised to continue with her appointment next Saturday with orthopedics. Advised ice elevate the area and will be given ibuprofen for pain. Disposition Clinical Impression: Knee pain, Foot sprain Disposition: HOME SELF-CARE Condition: Good Instructions: Knee Pain (ED) Additional Instructions: Please follow-up with orthopedics with her scheduled appointment. Please use knee immobilizer when up and moving around. Please return to emergency room if the symptoms increase or worsen or for any other concerns. Prescriptions: Ibuprofen [Motrin] 800 mg PO Q6HR #30 tab Is patient prescribed a controlled substance at d/c from ED?: No Referrals: Brooke Martin MD [Primary Care Provider] - 1-2 days Time of Disposition: 21:59
--- NOTE | 2018-03-20 21:45 | XR ---
EXAMINATION TYPE: XR foot complete LT DATE OF EXAM: 03/20/2018 COMPARISON: NONE HISTORY: Foot pain TECHNIQUE: 3 views FINDINGS: I see no fracture nor dislocation. Metatarsals are intact. There are no erosions. IMPRESSION: Negative left foot exam.
--- NOTE | 2018-03-20 21:46 | XR ---
EXAMINATION TYPE: XR knee limited LT DATE OF EXAM: 03/20/2018 COMPARISON: 03/14/2018 HISTORY: Knee pain TECHNIQUE: 2 views FINDINGS: There is no fracture nor dislocation. Joint spaces are normal. IMPRESSION: Normal left knee. No change.
== END 2018-03-20 22:26 | disposition home or self-care (01) ==
LOC: EC 20:50
DX: S93.602A Unspecified sprain of left foot, initial encounter (principal); M25.562 Pain in left knee; J45.909 Unspecified asthma, uncomplicated; K21.9 Gastro-esophageal reflux disease without esophagitis; F31.9 Bipolar disorder, unspecified; F90.9 Attention-deficit hyperactivity disorder, unspecified type; I25.2 Old myocardial infarction; Z87.891 Personal history of nicotine dependence; Z79.899 Other long term (current) drug therapy; Z86.79 Personal history of other diseases of the circulatory system; Z88.1 Allergy status to other antibiotic agents; Z88.5 Allergy status to narcotic agent; Z88.7 Allergy status to serum and vaccine; Z88.8 Allergy status to other drugs, medicaments and biological substances; Z91.012 Allergy to eggs; X58.XXXA Exposure to other specified factors, initial encounter; Y93.89 Activity, other specified; Y92.009 Unspecified place in unspecified non-institutional (private) residence as the place of occurrence of the external cause
CPT/HCPCS: 73560; 73630; 99283; L1830

== ENCOUNTER 2018-03-23 17:58 | Emergency (ER) | payer OTHER ==
[2018-03-23 18:04] VITALS: RESP 18
--- NOTE | 2018-03-23 18:41 | ED ---
Chest Pain HPI - General Chief Complaint: Chest Pain Stated Complaint: chest pain Source: patient Mode of arrival: ambulatory Limitations: no limitations - History of Present Illness Initial Comments: HPI Macro Chief Complaint: 32-year-old female with past medical asthma, GERD, seizure disorder, syncope presents with one-day history of chest pain. History of Present Illness: Patient's story begins wall she was at home she had an argument with her fianc's ex-. Patient states she became very upset when she began having left sided chest pain with radiation to the left lateral thorax. Patient has history of cardiac disease. She has been taking care of by Dr. Bolton who is a local assurance sourcing manager. Orts have a negative stress test Saturday months ago. She did have an unremarkable echocardiogram 1 year ago. She reports that her chest pain is to the left anterior chest with radiation to the lateral thorax. Denies any shortness of breath. Denies any associated diaphoresis radiation to the jaw or shoulders. Patient took one of her family members nitroglycerin with improvement of symptoms. Patient also does have a history of anxiety. Patient is well-known to the emergency department for multiple visits for various reasons. Denies any cough, fever, shortness of breath. Patient's chest pain did not go away and she called EMS. EMS reports that she had stable vital signs upon arrival. They gave her another dose of nitroglycerin. She took an aspirin prior to EMS arrival. Past Medical History: Bronchitis, sinusitis, migraines, anxiety Past Surgical History:[reviewed, none to report] Social History: [denies alcohol, tobacco or illicit drug use] Family History: reviewed and noncontributory The ROS documented in this emergency department record has been reviewed and confirmed by me. Those systems with pertinent positive or negative responses have been documented in the HPI. All other systems are other negative and/or noncontributory. - Related Data Home Medications Medication Instructions Recorded Confirmed Atorvastatin [Lipitor] 10 mg PO DAILY 12/14/17 03/23/18 SUMAtriptan SUCCINATE [Imitrex] 100 mg PO DAILY PRN 12/14/17 03/23/18 Albuterol Inhaler [Ventolin Hfa 2 puff INHALATION RT-QID PRN 01/15/18 03/23/18 Inhaler] Acetaminophen Tab [Tylenol] 650 mg PO Q6HR PRN 02/11/18 03/23/18 Atomoxetine HCl [Strattera] 25 mg PO QAM 02/14/18 03/23/18 Omeprazole [PriLOSEC] 20 mg PO AC-BID 02/14/18 03/23/18 Ranitidine HCl [Zantac] 300 mg PO DAILY 02/14/18 03/23/18 ARIPiprazole [Abilify] 10 mg PO DAILY 03/20/18 03/23/18 Previous Rx's Medication Instructions Recorded Escitalopram [Lexapro] 10 mg PO DAILY #14 tab 11/23/17 Ondansetron Odt [Zofran Odt] 4 mg PO Q8HR PRN #10 tab 03/06/18 levETIRAcetam [Keppra] 500 mg PO Q12HR #30 tab 03/10/18 Ibuprofen [Motrin] 800 mg PO Q6HR #30 tab 03/20/18 Allergies Allergy/AdvReac Type Severity Reaction Status Date / Time azithromycin Allergy Rash/Hives Verified 03/23/18 18:25 divalproex sodium Allergy "had Verified 03/23/18 18:25 [From Depakote] seizure when coming off" hydrocodone Allergy Rash/Hives Verified 03/23/18 18:25 Quinolones Allergy Rash/Hives Verified 03/23/18 18:25 sulfamethoxazole Allergy Rash/Hives Verified 03/23/18 18:25 [From Bactrim] tramadol Allergy Rash/Hives Verified 03/23/18 18:25 trimethoprim [From Bactrim] Allergy Rash/Hives Verified 03/23/18 18:25 codeine AdvReac Vertigo Verified 03/23/18 18:25 diphenhydramine HCl AdvReac Rapid Verified 03/23/18 18:25 [From Benadryl] Heart Rate egg AdvReac Nausea & Verified 03/23/18 18:25 Vomiting Influenza Virus Vaccines AdvReac Nausea & Verified 03/23/18 18:25 Vomiting Review of Systems ROS Statement: Those systems with pertinent positive or pertinent negative responses have been documented in the HPI. ROS Other: All systems not noted in ROS Statement are negative. Past Medical History Past Medical History: Asthma, Chest Pain / Angina, GERD/Reflux, Myocardial Infarction ([place]), Seizure Disorder, Syncope Additional Past Medical History / Comment(s): migraines, seizure 2 yrs ago from "depakote", [place] x 2, low blood pressures, irregular heart beat, tachycardia, Last Myocardial Infarction Date:: 10/2016 History of Any Multi-Drug Resistant Organisms: None Reported Past Surgical History: Cholecystectomy, Tubal Ligation Additional Past Surgical History / Comment(s): Tilt table test, wisdom teeth extraction. Past Anesthesia/Blood Transfusion Reactions: Previous Problems w/ Anesthesia Additional Past Anesthesia/Blood Transfusion Reaction / Comment(s): "I get anxious when I wake up when my fiance is not there" Past Psychological History: ADD/ADHD, Anxiety, Bipolar, Depression, PTSD Smoking Status: Former smoker Past Alcohol Use History: None Reported Past Drug Use History: None Reported - Past Family History Father Family Medical History: Cancer Additional Family Medical History / Comment(s): Father at age 61 from lung CA Mother Family Medical History: No Reported History, Seizure Disorder Additional Family Medical History / Comment(s): Mother is alive with history of bipolar/schitzophrenia Brother(s) Additional Family Medical History / Comment(s): She has one half brother that abuses cocaine and methamphetamines. She does not have any contact with him. Patient has 1 sister with no major medical problems. Patient does not have any children. General Exam - General Exam Comments Initial Comments: Vitals: Tachycardia 109, respiratory signs within normal limits PHYSICAL EXAM: General Impression: Alert and oriented x3, not in acute distress HEENT: Normocephalic atraumatic, extra-ocular movements intact, pupils equal and reactive to light bilaterally, mucous membranes moist. Cardiovascular: Heart regular rate and rhythm, S1&S2 audible, no murmurs, rubs or gallops Chest: Lungs clear to auscultation bilaterally, no rhonchi, no wheeze, no rales Abdomen: Bowel sounds present, abdomen soft, non-tender, non-distended, no organomegaly Musculoskeletal: Pulses present and equal in all extremities, no peripheral edema Motor: Power 5/5 bilaterally, no focal deficits noted Neurological: CN II-XII grossly intact, no focal motor or sensory deficits noted Skin: Intact with no visualized rashes Psych: Normal affect and mood Limitations: no limitations Course Vital Signs 03/23/18 03/23/18 03/23/18 18:01 19:07 20:45 Temperature 99.2 F 97.9 F Pulse Rate 109 H 108 H 92 Respiratory 18 18 18 Rate Blood Pressure 105/66 98/64 97/61 O2 Sat by Pulse 97 97 96 Oximetry 03/23/18 21:21 Temperature 98.0 F Pulse Rate 97 Respiratory 18 Rate Blood Pressure 103/71 O2 Sat by Pulse 95 Oximetry Chest Pain [facility] ED course: Patient is a 32-year-old female with multiple comorbidities well-known to emergency department for multiple visitations for various reasons. Patient's chief complaint of chest pain. Patient has been managed outpatient by Dr. Bolton who was a local assurance sourcing manager. Patient is well- appearing. Vital signs shows tachycardia 109. EKG is benign. Patient had received aspirin prior to EMS evaluation. Will not repeat aspirin today given that she took a dose prior to arrival. She also did receive nitroglycerin with reports of mild improvement of symptoms. Chart review shows that patient is here proximally every other week. Laboratory evaluation obtained showing no acute processes. 2 sets of troponins are negative. Chest x-ray is unremarkable. EKG does not show any findings to suggest ischemic changes. Discussed patient case with cardiology given that patient reports that her assurance sourcing manager told her that she needs to stay for echocardiogram if she presents to the emergency department with chest pain. Discussed patient case with cardiology who recommended the patient does not need to stay in the hospital for further testing. Discussed with patient that she will be discharged per she is told to follow-up with the clinic. Repeat vital signs shows improvement of heart rate. Patient is understandable agreeable. She states that she will follow up with her primary care physician and assurance sourcing manager. EKG interpretation: Ventricular rate 104. Sign is tachycardia rhythm. MI interval 154, respiration 102, QTC 481 No MI prolongation, no QTC prolongation , no ST or T-wave changes noted. EKG compared to [id number] showing no changes. Overall, this EKG is unremarkable Disposition Clinical Impression: Chest pain Disposition: HOME SELF-CARE Condition: Stable Instructions: Chest Pain (ED) Is patient prescribed a controlled substance at d/c from ED?: No Referrals: Brooke Martin MD [Primary Care Provider] - 1-2 days
[2018-03-23 18:53] LABS: Basophils % (A) 0 %; Eosinophils # (A) 0.1 k/uL (0-0.7); Eosinophils % (A) 1 %; HCT 39.2 % (34.0-46.0); HGB 13.2 gm/dL (11.4-16.0); Lymphocytes # (A) 2.6 k/uL (1.0-4.8); Lymphocytes % (A) 33 %; MCH 31.4 pg (25.0-35.0); MCHC 33.6 g/dL (31.0-37.0); MCV 93.3 fL (80.0-100.0); Mean Platelet Volume 6.6; Monocytes # (A) 0.5 k/uL (0-1.0); Monocytes % (A) 7 %; Neutrophils # (A) 4.5 k/uL (1.3-7.7); Neutrophils % (A) 57 %; Platelet Count 253 k/uL (150-450); RBC 4.21 m/uL (3.80-5.40); RDW 13.1 % (11.5-15.5); WBC 7.9 k/uL (3.8-10.6)
[2018-03-23 19:03] LABS: Anion Gap 9 mmol/L; Blood Urea Nitrogen 19 mg/dL (7-17); Calcium 9.2 mg/dL (8.4-10.2); Carbon Dioxide 25 mmol/L (22-30); Chloride 106 mmol/L (98-107); Glucose 83 mg/dL (74-99); Potassium 3.9 mmol/L (3.5-5.1); Sodium 140 mmol/L (137-145)
--- NOTE | 2018-03-23 19:20 | XR ---
EXAMINATION TYPE: XR chest 2V DATE OF EXAM: 03/23/2018 COMPARISON: Prior chest x-ray dated 02/14/2018. HISTORY: Chest pain TECHNIQUE: Frontal and lateral views of the chest are obtained. FINDINGS: There is no focal air space opacity, pleural effusion, or pneumothorax seen. The cardiac silhouette size is within normal limits. The osseous structures are intact. Multiple monitor leads are superimposing the patient's chest. No pneumothorax. Similar findings to the prior chest x-ray. IMPRESSION: No acute cardiopulmonary process. Stable finding as compared with the prior chest x-ray.
[2018-03-23 19:22] LABS: Amphetamine Screen,Urine Not Detected (NotDetected); Barbiturate Screen,Urine Not Detected (NotDetected); Benzodiazepines Screen,Urine Not Detected (NotDetected); Cocaine Screen,Urine Not Detected (NotDetected); Methadone Screen, Urine Not Detected (NotDetected); Opiate Screen,Urine Not Detected (NotDetected); Oxycodone Screen, Urine Not Detected (NotDetected); Phencyclidine Screen,Urine Not Detected (NotDetected); Tricyclic Antidepressant,Urine Not Detected (NotDetected); Urn Cannabinoid Scrn Not Detected (NotDetected)
[2018-03-23 21:22] VITALS: BP 103/71; PULSE 97; TEMP 98
== END 2018-03-23 22:27 | disposition home or self-care (01) ==
LOC: EC 17:58
DX: R07.9 Chest pain, unspecified (principal); J45.909 Unspecified asthma, uncomplicated; K21.9 Gastro-esophageal reflux disease without esophagitis; G40.909 Epilepsy, unspecified, not intractable, without status epilepticus; F31.9 Bipolar disorder, unspecified; F90.9 Attention-deficit hyperactivity disorder, unspecified type; F41.9 Anxiety disorder, unspecified; F43.10 Post-traumatic stress disorder, unspecified; Z87.891 Personal history of nicotine dependence; Z79.899 Other long term (current) drug therapy; Z88.8 Allergy status to other drugs, medicaments and biological substances; Z91.012 Allergy to eggs; Z88.7 Allergy status to serum and vaccine; Z88.2 Allergy status to sulfonamides; Z88.5 Allergy status to narcotic agent; Z88.1 Allergy status to other antibiotic agents
CPT/HCPCS: 36415; 71046; 80048; 80306; 81025; 84484; 85025; 93005; 99285

== ENCOUNTER 2018-03-26 18:58 | Emergency (ER) | payer OTHER ==
[2018-03-26 19:12] VITALS: TEMP 98.6
[2018-03-26] MEDS ORDERED: SODIUM CHLORIDE 0.9% 1,000 ML IV STA ×2 (19:27)
--- NOTE | 2018-03-26 19:39 | ED ---
Chest Pain HPI - General Source: patient, RN notes reviewed, old records reviewed Mode of arrival: wheelchair Limitations: no limitations <Belén Garcia - Last Filed: 03/26/18 20:30> <Miguel Laguerre - Last Filed: 03/26/18 20:59> - General Chief Complaint: Chest Pain Stated Complaint: chest pain Time Seen by Provider: 03/26/18 19:17 - History of Present Illness Initial Comments: Patient is a 32-year-old female presents emergency Department chief complaint of chest pain. She reports that it started while she was cleaning her pet lizard cage. Her heart rate was 145 time. She does take Lopressor for tachycardia. Patient reports the last time she was admitted she was told to tell the physician that she has chest pain she is supposed to get a cardiac cath. She reports that she felt nauseous. No shortness of breath. She has been the ER multiple times in the past 2 months for various issues. (Belén Garcia) - Related Data Home Medications Medication Instructions Recorded Confirmed Atorvastatin [Lipitor] 10 mg PO DAILY 12/14/17 03/23/18 SUMAtriptan SUCCINATE [Imitrex] 100 mg PO DAILY PRN 12/14/17 03/23/18 Albuterol Inhaler [Ventolin Hfa 2 puff INHALATION RT-QID PRN 01/15/18 03/23/18 Inhaler] Acetaminophen Tab [Tylenol] 650 mg PO Q6HR PRN 02/11/18 03/23/18 Atomoxetine HCl [Strattera] 25 mg PO QAM 02/14/18 03/23/18 Omeprazole [PriLOSEC] 20 mg PO AC-BID 02/14/18 03/23/18 Ranitidine HCl [Zantac] 300 mg PO DAILY 02/14/18 03/23/18 ARIPiprazole [Abilify] 10 mg PO DAILY 03/20/18 03/23/18 Previous Rx's Medication Instructions Recorded Escitalopram [Lexapro] 10 mg PO DAILY #14 tab 11/23/17 Ondansetron Odt [Zofran Odt] 4 mg PO Q8HR PRN #10 tab 03/06/18 levETIRAcetam [Keppra] 500 mg PO Q12HR #30 tab 03/10/18 Ibuprofen [Motrin] 800 mg PO Q6HR #30 tab 03/20/18 Ibuprofen 800 mg PO Q6HR PRN #20 tablet 03/26/18 Allergies Allergy/AdvReac Type Severity Reaction Status Date / Time azithromycin Allergy Rash/Hives Verified 03/26/18 19:11 divalproex sodium Allergy "had Verified 03/26/18 19:11 [From Depakote] seizure when coming off" hydrocodone Allergy Rash/Hives Verified 03/26/18 19:11 Quinolones Allergy Rash/Hives Verified 03/26/18 19:11 sulfamethoxazole Allergy Rash/Hives Verified 03/26/18 19:11 [From Bactrim] tramadol Allergy Rash/Hives Verified 03/26/18 19:11 trimethoprim [From Bactrim] Allergy Rash/Hives Verified 03/26/18 19:11 codeine AdvReac Vertigo Verified 03/26/18 19:11 diphenhydramine HCl AdvReac Rapid Verified 03/26/18 19:11 [From Benadryl] Heart Rate egg AdvReac Nausea & Verified 03/26/18 19:11 Vomiting Influenza Virus Vaccines AdvReac Nausea & Verified 03/26/18 19:11 Vomiting Review of Systems ROS Other: All systems not noted in ROS Statement are negative. <Belén Garcia - Last Filed: 03/26/18 20:30> ROS Other: All systems not noted in ROS Statement are negative. <Miguel Laguerre - Last Filed: 03/26/18 20:59> ROS Statement: Those systems with pertinent positive or pertinent negative responses have been documented in the HPI. EKG Findings - EKG Comments: EKG Findings:: EKG shows sinus tachycardia ventricular 101 bpm. Left anterior fascicular block. Cannot rule out anterior infarct. ID intervals 182. Curious duration 108. QT QTc is 360/477 ms. <Belén Garcia - Last Filed: 03/26/18 20:30> Past Medical History Past Medical History: Asthma, Chest Pain / Angina, GERD/Reflux, Myocardial Infarction ([place]), Seizure Disorder, Syncope Additional Past Medical History / Comment(s): migraines, seizure 2 yrs ago from "depakote", [place] x 2, low blood pressures, irregular heart beat, tachycardia, Last Myocardial Infarction Date:: 10/2016 History of Any Multi-Drug Resistant Organisms: None Reported Past Surgical History: Cholecystectomy, Tubal Ligation Additional Past Surgical History / Comment(s): Tilt table test, wisdom teeth extraction. Past Anesthesia/Blood Transfusion Reactions: Previous Problems w/ Anesthesia Additional Past Anesthesia/Blood Transfusion Reaction / Comment(s): "I get anxious when I wake up when my fiance is not there" Past Psychological History: ADD/ADHD, Anxiety, Bipolar, Depression, PTSD Smoking Status: Former smoker Past Alcohol Use History: None Reported Past Drug Use History: None Reported - Past Family History Father Family Medical History: Cancer Additional Family Medical History / Comment(s): Father at age 61 from lung [place] Mother Family Medical History: No Reported History, Seizure Disorder Additional Family Medical History / Comment(s): Mother is alive with history of bipolar/schitzophrenia Brother(s) Additional Family Medical History / Comment(s): She has one half brother that abuses cocaine and methamphetamines. She does not have any contact with him. Patient has 1 sister with no major medical problems. Patient does not have any children. <Belén Garcia - Last Filed: 03/26/18 20:30> General Exam Limitations: no limitations <Belén Garcia - Last Filed: 03/26/18 20:30> General appearance: alert, in no apparent distress Head exam: Present: atraumatic, normocephalic, normal inspection Eye exam: Present: normal appearance, PERRL, EOMI. Absent: scleral icterus, conjunctival injection, periorbital swelling ENT exam: Present: normal exam, mucous membranes moist Neck exam: Present: normal inspection. Absent: tenderness, meningismus, lymphadenopathy Respiratory exam: Present: normal lung sounds bilaterally, chest wall tenderness (Reproducible tenderness palpation along the left costochondral margin). Absent: respiratory distress, wheezes, rales, rhonchi, stridor Cardiovascular Exam: Present: regular rate, normal rhythm, normal heart sounds. Absent: systolic murmur, diastolic murmur, rubs, gallop, clicks GI/Abdominal exam: Present: soft, normal bowel sounds. Absent: distended, tenderness, guarding, rebound, rigid Extremities exam: Present: normal inspection, full ROM, normal capillary refill. Absent: tenderness, pedal edema, joint swelling, calf tenderness Back exam: Present: normal inspection Neurological exam: Present: alert, oriented X3, CN II-XII intact Psychiatric exam: Present: normal affect, normal mood Skin exam: Present: warm, dry, intact, normal color. Absent: rash <Miguel Laguerre - Last Filed: 03/26/18 20:59> - General Exam Comments Initial Comments: This is a well-developed well-nourished awake alert oriented 3 female (Miguel Laguerre) Course <Belén Garcia - Last Filed: 03/26/18 20:30> <Miguel Laguerre - Last Filed: 03/26/18 20:59> Vital Signs 03/26/18 03/26/18 19:08 19:55 Temperature 98.6 F Pulse Rate 110 H 98 Respiratory 16 16 Rate Blood Pressure 102/69 105/65 O2 Sat by Pulse 99 100 Oximetry - Reevaluation(s) Reevaluation #1: 03/26/18 20:[address] Laguerre. Case transferred 8:30 PM. (Belén Garcia) Reevaluation #2: 03/26/18 20:54 I did examine the patient personally and review the exam remained. Labs and x- rays are unremarkable EKG was within normal limits patient demonstrates evidence of costochondritis she will be discharged with appropriate medication. She is follow-up with her doctor return when necessary (Miguel Laguerre) Chest Pain MDM <Belén Garcia - Last Filed: 03/26/18 20:30> <Miguel Laguerre - Last Filed: 03/26/18 20:59> - MDM 32-year-old female with chief complaint of left-sided chest pain this afternoon. Patient reports his been emergently for multiple times for similar complaints. Initially patient's EKG is reviewed and normal. Currently pending cardiac enzymes for her disposition. Final disposition by Dr. Laguerre. I did give the Patient Toradol for pain. (Belén Garcia) Disposition <Belén Garcia - Last Filed: 03/26/18 20:30> Is patient prescribed a controlled substance at d/c from ED?: No <Miguel Laguerre - Last Filed: 03/26/18 20:59> Clinical Impression: Chest wall syndrome, Costalchondritis Disposition: HOME SELF-CARE Condition: Good Instructions: Costochondritis (ED) Prescriptions: Ibuprofen 800 mg PO Q6HR PRN #20 tablet PRN Reason: Pain Referrals: Sunilkumar,Mini, MD [Primary Care Provider] - 1-2 days
[2018-03-26 20:01] LABS: HCT 42.7 % (34.0-46.0); HGB 14.3 gm/dL (11.4-16.0); MCH 31.5 pg (25.0-35.0); MCHC 33.6 g/dL (31.0-37.0); MCV 93.9 fL (80.0-100.0); RBC 4.55 m/uL (3.80-5.40); WBC 7.1 k/uL (3.8-10.6)
[2018-03-26 20:02] LABS: Mean Platelet Volume 6.2; Platelet Count 257 k/uL (150-450); RDW 13.6 % (11.5-15.5)
[2018-03-26 20:03] LABS: Basophils % (A) 0 %; Eosinophils # (A) 0.1 k/uL (0-0.7); Eosinophils % (A) 2 %; Lymphocytes # (A) 2.3 k/uL (1.0-4.8); Lymphocytes % (A) 33 %; Monocytes # (A) 0.5 k/uL (0-1.0); Monocytes % (A) 7 %; Neutrophils # (A) 3.9 k/uL (1.3-7.7); Neutrophils % (A) 55 %
[2018-03-26] MEDS ORDERED: KETOROLAC 30 MG/ML 1 ML VIAL IVP STA (20:04)
[2018-03-26 20:08] LABS: ALT 25 U/L (9-52); AST 36 U/L (14-36); Albumin 4.2 g/dL (3.5-5.0); Alkaline Phosphatase 61 U/L (38-126); Amylase 66 U/L (30-110); Anion Gap 10 mmol/L; Blood Urea Nitrogen 16 mg/dL (7-17); Calcium 9.3 mg/dL (8.4-10.2); Carbon Dioxide 21 mmol/L (22-30); Chloride 108 mmol/L (98-107); Glucose 103 mg/dL (74-99); Lipase 220 U/L (23-300); Sodium 139 mmol/L (137-145); Total Bilirubin 0.8 mg/dL (0.2-1.3); Total Protein 7.6 g/dL (6.3-8.2)
[2018-03-26 20:09] LABS: INR 1.1 (<1.2); Partial Thromboplastin Time 22.6 sec (22.0-30.0); Prothrombin Time 10.5 sec (9.0-12.0)
[2018-03-26 20:09] LABS: Potassium 5.3 mmol/L (3.5-5.1)
[2018-03-26 20:19] LABS: Creatine Kinase 81 U/L (30-135)
--- NOTE | 2018-03-26 20:27 | XR ---
EXAMINATION TYPE: XR chest 2V DATE OF EXAM: 03/26/2018 COMPARISON: 03/23/2018 HISTORY: Chest pain TECHNIQUE: Frontal and lateral views of the chest are obtained. FINDINGS: Heart and mediastinum are normal. Lungs are clear. Diaphragm is normal. Bony thorax appear s normal. IMPRESSION: Normal chest. No change.
[2018-03-26 20:32] LABS: Creatine Kinase MB 0.4 ng/mL (0.0-2.4); Troponin I <0.012 ng/mL (0.000-0.034)
[2018-03-26 21:40] VITALS: BP 102/71; PULSE 91; RESP 19
== END 2018-03-26 21:20 | disposition home or self-care (01) ==
LOC: EC 18:58
DX: M94.0 Chondrocostal junction syndrome [Tietze] (principal); K21.9 Gastro-esophageal reflux disease without esophagitis; I25.2 Old myocardial infarction; F90.9 Attention-deficit hyperactivity disorder, unspecified type; F31.9 Bipolar disorder, unspecified; Z88.1 Allergy status to other antibiotic agents; Z88.2 Allergy status to sulfonamides; Z88.5 Allergy status to narcotic agent; Z88.8 Allergy status to other drugs, medicaments and biological substances; Z88.7 Allergy status to serum and vaccine; Z91.012 Allergy to eggs; Z79.899 Other long term (current) drug therapy; Z87.891 Personal history of nicotine dependence
CPT/HCPCS: 99285; 96374; 96361 ×2; 36415; 93005; 83880; 80053; 82150; 82550; 82553; 83690; 83735; 84484; 85025; 85610; 85730; 71046; J1885

== ENCOUNTER 2018-04-02 20:52 | Emergency (ER) | payer OTHER ==
[2018-04-02 21:48] VITALS: BP 124/74; RESP 18; TEMP 97.7
--- NOTE | 2018-04-02 23:00 | XR ---
EXAMINATION TYPE: XR knee complete LT DATE OF EXAM: 04/02/2018 COMPARISON: 03/12/2018 HISTORY: Knee pain TECHNIQUE: 3 views FINDINGS: I see no fracture nor dislocation. Joint spaces are normal. There is no sign of joint effus ion. IMPRESSION: Negative left knee exam. No change.
--- NOTE | 2018-04-02 23:11 | ED ---
General Adult HPI - General Chief complaint: Extremity Injury, Lower Stated complaint: knee pain Time Seen by Provider: 04/02/18 21:57 Source: patient, RN notes reviewed Mode of arrival: ambulatory Limitations: no limitations - History of Present Illness Initial comments: 32-year-old female process to the emergency department for a chief complaint of left knee pain 3 days. Patient states she was dancing when she twisted her left knee. Patient states she saw orthopedics and they told her it was dislocated. Patient states she came to the emergency department because it is still hurting and they told her they would not give her pain medication. Patient denies hitting her head or any other injuries. Patient has no other complaints at this time including shortness of breath, chest pain, abdominal pain, nausea or vomiting, headache, or visual changes. - Related Data Home Medications Medication Instructions Recorded Confirmed Atorvastatin [Lipitor] 10 mg PO DAILY 12/14/17 03/23/18 SUMAtriptan SUCCINATE [Imitrex] 100 mg PO DAILY PRN 12/14/17 03/23/18 Albuterol Inhaler [Ventolin Hfa 2 puff INHALATION RT-QID PRN 01/15/18 03/23/18 Inhaler] Acetaminophen Tab [Tylenol] 650 mg PO Q6HR PRN 02/11/18 03/23/18 Atomoxetine HCl [Strattera] 25 mg PO QAM 02/14/18 03/23/18 Omeprazole [PriLOSEC] 20 mg PO AC-BID 02/14/18 03/23/18 Ranitidine HCl [Zantac] 300 mg PO DAILY 02/14/18 03/23/18 ARIPiprazole [Abilify] 10 mg PO DAILY 03/20/18 03/23/18 Previous Rx's Medication Instructions Recorded Escitalopram [Lexapro] 10 mg PO DAILY #14 tab 11/23/17 Ondansetron Odt [Zofran Odt] 4 mg PO Q8HR PRN #10 tab 03/06/18 levETIRAcetam [Keppra] 500 mg PO Q12HR #30 tab 03/10/18 Ibuprofen [Motrin] 800 mg PO Q6HR #30 tab 03/20/18 Ibuprofen 800 mg PO Q6HR PRN #20 tablet 03/26/18 Allergies Allergy/AdvReac Type Severity Reaction Status Date / Time azithromycin Allergy Rash/Hives Verified 04/02/18 21:48 divalproex sodium Allergy "had Verified 04/02/18 21:48 [From Depakote] seizure when coming off" hydrocodone Allergy Rash/Hives Verified 04/02/18 21:48 Quinolones Allergy Rash/Hives Verified 04/02/18 21:48 sulfamethoxazole Allergy Rash/Hives Verified 04/02/18 21:48 [From Bactrim] tramadol Allergy Rash/Hives Verified 04/02/18 21:48 trimethoprim [From Bactrim] Allergy Rash/Hives Verified 04/02/18 21:48 codeine AdvReac Vertigo Verified 04/02/18 21:48 diphenhydramine HCl AdvReac Rapid Verified 04/02/18 21:48 [From Benadryl] Heart Rate egg AdvReac Nausea & Verified 04/02/18 21:48 Vomiting Influenza Virus Vaccines AdvReac Nausea & Verified 04/02/18 21:48 Vomiting Review of Systems ROS Statement: Those systems with pertinent positive or pertinent negative responses have been documented in the HPI. ROS Other: All systems not noted in ROS Statement are negative. Past Medical History Past Medical History: Asthma, Chest Pain / Angina, GERD/Reflux, Myocardial Infarction ([place]), Seizure Disorder, Syncope Additional Past Medical History / Comment(s): migraines, seizure 2 yrs ago from "depakote", [place] x 2, low blood pressures, irregular heart beat, tachycardia, Last Myocardial Infarction Date:: 10/2016 History of Any Multi-Drug Resistant Organisms: None Reported Past Surgical History: Cholecystectomy, Tubal Ligation Additional Past Surgical History / Comment(s): Tilt table test, wisdom teeth extraction. Past Anesthesia/Blood Transfusion Reactions: Previous Problems w/ Anesthesia Additional Past Anesthesia/Blood Transfusion Reaction / Comment(s): "I get anxious when I wake up when my fiance is not there" Past Psychological History: ADD/ADHD, Anxiety, Bipolar, Depression, PTSD Smoking Status: Former smoker Past Alcohol Use History: None Reported Past Drug Use History: None Reported - Past Family History Father Family Medical History: Cancer Additional Family Medical History / Comment(s): Father at age 61 from lung [place] Mother Family Medical History: No Reported History, Seizure Disorder Additional Family Medical History / Comment(s): Mother is alive with history of bipolar/schitzophrenia Brother(s) Additional Family Medical History / Comment(s): She has one half brother that abuses cocaine and methamphetamines. She does not have any contact with him. Patient has 1 sister with no major medical problems. Patient does not have any children. General Exam Limitations: no limitations General appearance: alert, in no apparent distress Head exam: Present: atraumatic, normocephalic, normal inspection Eye exam: Present: normal appearance ENT exam: Present: normal exam, mucous membranes moist Neck exam: Present: normal inspection, full ROM. Absent: tenderness, meningismus, lymphadenopathy Respiratory exam: Present: normal lung sounds bilaterally. Absent: respiratory distress, wheezes, rales, rhonchi, stridor Cardiovascular Exam: Present: regular rate, normal rhythm, normal heart sounds. Absent: systolic murmur, diastolic murmur, rubs, gallop, clicks Extremities exam: Present: tenderness (Tenderness to the anterior left knee), normal capillary refill (Capillary refill less than 2 seconds and pedal pulse 2 + in the left lower extremity.). Absent: full ROM (Patient has full extension of the left knee and about 90 flexion.), joint swelling (No swelling noted of the knee and no ecchymosis. No signs of trauma.), calf tenderness (No tenderness to the calf, negative Homans sign, no warmth or swelling noted) Course Vital Signs 04/02/18 04/02/18 21:46 23:17 Temperature 97.7 F Pulse Rate 117 H 99 Respiratory 18 18 Rate Blood Pressure 124/74 O2 Sat by Pulse 97 Oximetry Medical Decision Making - Medical Decision Making 32-year-old female presents to the emergency department for chief complaint of left knee injury times 3 days. Patient states she was seen orthopedics and diagnosed with a dislocation. However they would not give her pain medications. I discussed with the patient that we would need to repeat the x- ray here. Patient is walking on it without difficulty. Patient is able to flex the knee to 90 and extend it fully. Neurovascular intact in the left lower extremity. No swelling or ecchymosis noted in the left knee. No signs of trauma. X-ray shows no acute fractures or dislocations. On reexamination, patient states it is feeling much better and she doesn't think she needs to wear her knee brace anymore. I discussed with patient that she can so her knee brace if needed. She will take Motrin and Tylenol for pain. She will follow up with primary care in 1-2 days. She will return to the emergency Department if she has any worsening symptoms. Disposition Clinical Impression: Knee pain, left Disposition: HOME SELF-CARE Condition: Good Instructions: Knee Pain (ED) Additional Instructions: Please take Tylenol for pain. Please follow-up with primary care in 1-2 days. Return to the emergency department if you have any worsening symptoms. Is patient prescribed a controlled substance at d/c from ED?: No Referrals: Brooke Martin MD [Primary Care Provider] - 1-2 days Time of Disposition: 23:11
[2018-04-02 23:17] VITALS: PULSE 99
== END 2018-04-02 23:17 | disposition home or self-care (01) ==
LOC: EC 20:52
DX: M25.562 Pain in left knee (principal); J45.909 Unspecified asthma, uncomplicated; K21.9 Gastro-esophageal reflux disease without esophagitis; F90.9 Attention-deficit hyperactivity disorder, unspecified type; F31.9 Bipolar disorder, unspecified; Z87.891 Personal history of nicotine dependence; Z79.899 Other long term (current) drug therapy; Z88.1 Allergy status to other antibiotic agents; Z88.5 Allergy status to narcotic agent; Z88.7 Allergy status to serum and vaccine; Z88.8 Allergy status to other drugs, medicaments and biological substances; Z91.012 Allergy to eggs; X50.1XXA Overexertion from prolonged static or awkward postures, initial encounter; Y93.41 Activity, dancing
CPT/HCPCS: 99283

== ENCOUNTER 2018-04-04 17:42 | Emergency (ER) | payer OTHER ==
[2018-04-04 17:49] VITALS: RESP 16
[2018-04-04] MEDS ORDERED: LORazepam 2 MG/ML INJ IV STA (18:00)
--- NOTE | 2018-04-04 18:24 | ED ---
Seizure HPI - General Chief Complaint: Seizure Stated Complaint: Seizure Time Seen by Provider: 04/04/18 17:46 Source: patient Mode of arrival: EMS Limitations: no limitations - History of Present Illness Initial Comments: This 32-year-old female presents after having 3 seizures. She states that this occurred all shortly prior to arrival. They lasted approximately 1 minute each. They were witnessed by her family and/or friends. She states that she feels minimally weak and confused at this time. She does have a long-standing history of previous seizure disorder. She's had workup in this regard. She is taking Keppra 500 mg twice a day and denies missing any doses recently. She did not sustain any injuries with her seizures. She denies any other complaints or modifying factors. She does see Dr. Romero from neurology in regard to her seizures. - Related Data Home Medications Medication Instructions Recorded Confirmed Atorvastatin [Lipitor] 10 mg PO DAILY 12/14/17 04/04/18 SUMAtriptan SUCCINATE [Imitrex] 100 mg PO DAILY PRN 12/14/17 04/04/18 Albuterol Inhaler [Ventolin Hfa 2 puff INHALATION RT-QID PRN 01/15/18 04/04/18 Inhaler] Acetaminophen Tab [Tylenol] 650 mg PO Q6HR PRN 02/11/18 04/04/18 Atomoxetine HCl [Strattera] 25 mg PO QAM 02/14/18 04/04/18 Omeprazole [PriLOSEC] 20 mg PO AC-BID 02/14/18 04/04/18 Ranitidine HCl [Zantac] 300 mg PO DAILY 02/14/18 04/04/18 ARIPiprazole [Abilify] 10 mg PO DAILY 03/20/18 04/04/18 Previous Rx's Medication Instructions Recorded Escitalopram [Lexapro] 10 mg PO DAILY #14 tab 11/23/17 Ondansetron Odt [Zofran Odt] 4 mg PO Q8HR PRN #10 tab 03/06/18 levETIRAcetam [Keppra] 500 mg PO Q12HR #30 tab 03/10/18 Ibuprofen 800 mg PO Q6HR PRN #20 tablet 03/26/18 Allergies Allergy/AdvReac Type Severity Reaction Status Date / Time azithromycin Allergy Rash/Hives Verified 04/04/18 18:05 divalproex sodium Allergy "had Verified 04/04/18 18:05 [From Depakote] seizure when coming off" hydrocodone Allergy Rash/Hives Verified 04/04/18 18:05 Quinolones Allergy Rash/Hives Verified 04/04/18 18:05 sulfamethoxazole Allergy Rash/Hives Verified 04/04/18 18:05 [From Bactrim] tramadol Allergy Rash/Hives Verified 04/04/18 18:05 trimethoprim [From Bactrim] Allergy Rash/Hives Verified 04/04/18 18:05 codeine AdvReac Vertigo Verified 04/04/18 18:05 diphenhydramine HCl AdvReac Rapid Verified 04/04/18 18:05 [From Benadryl] Heart Rate egg AdvReac Nausea & Verified 04/04/18 18:05 Vomiting Influenza Virus Vaccines AdvReac Nausea & Verified 04/04/18 18:05 Vomiting Review of Systems ROS Statement: Those systems with pertinent positive or pertinent negative responses have been documented in the HPI. ROS Other: All systems not noted in ROS Statement are negative. Past Medical History Past Medical History: Asthma, Chest Pain / Angina, GERD/Reflux, Myocardial Infarction ([place]), Seizure Disorder, Syncope Additional Past Medical History / Comment(s): migraines, seizure 2 yrs ago from "depakote", [place] x 2, low blood pressures, irregular heart beat, tachycardia, Last Myocardial Infarction Date:: 10/2016 History of Any Multi-Drug Resistant Organisms: None Reported Past Surgical History: Cholecystectomy, Tubal Ligation Additional Past Surgical History / Comment(s): Tilt table test, wisdom teeth extraction. Past Anesthesia/Blood Transfusion Reactions: Previous Problems w/ Anesthesia Additional Past Anesthesia/Blood Transfusion Reaction / Comment(s): "I get anxious when I wake up when my fiance is not there" Past Psychological History: ADD/ADHD, Anxiety, Bipolar, Depression, PTSD Smoking Status: Former smoker Past Alcohol Use History: None Reported Past Drug Use History: None Reported - Past Family History Father Family Medical History: Cancer Additional Family Medical History / Comment(s): Father at age 61 from lung [place] Mother Family Medical History: No Reported History, Seizure Disorder Additional Family Medical History / Comment(s): Mother is alive with history of bipolar/schitzophrenia Brother(s) Additional Family Medical History / Comment(s): She has one half brother that abuses cocaine and methamphetamines. She does not have any contact with him. Patient has 1 sister with no major medical problems. Patient does not have any children. General Exam - General Exam Comments Initial Comments: GENERAL: The patient is well nourished and well hydrated. VITAL SIGNS: Heart rate, blood pressure, respiratory rate reviewed as recorded in nurse's notes. EYES: Pupils are round and reactive. Extraocular movements are intact. No conjunctival / lid redness or swelling. ENT: No external evidence of injury, swelling, or ecchymosis. Airway is patent. Throat is clear. NECK: Nontender. No swelling or evidence of injury. No subcutaneous emphysema. Trachea is midline. No thyroid mass. HEART: Regular rate and rhythm. Good peripheral pulses. LUNGS/CHEST: Breath sounds clear and equal bilaterally. No rales, rhonchi, or wheezes. No ecchymosis, subcutaneous emphysema, or tenderness. ABDOMEN: Abdomen soft without tenderness. No palpable masses or organomegaly. No peritoneal signs. No abdominal wall swelling or ecchymosis. EXTREMITIES: No extremity tenderness. Normal muscle tone and function. No thoracolumbar tenderness. NEUROLOGIC: Sensation is grossly intact. Cranial nerve exam reveals face is symmetrical, tongue is midline, speech is clear. SKIN: No abrasions or ecchymosis is noted. No induration or masses noted. PSYCHIATRIC: Alert and oriented. Appropriate behavior and judgment. Limitations: no limitations Course Vital Signs 04/04/18 17:47 Temperature 97.9 F Pulse Rate 119 H Respiratory 16 Rate Blood Pressure 109/64 O2 Sat by Pulse 97 Oximetry Medical Decision Making - Medical Decision Making The patient was seen and examined. All diagnostics are reviewed. She states that the paramedics told her that her EKG and route was abnormal and she is worried about this. A repeat EKG is done in the ER and this shows evidence of sinus tachycardia at a rate of 105. There is no acute ST-T wave changes identified. The VA intervals 170, QRS duration is 104, and the QTC intervals 470. She did receive Ativan 1 mg IV while in the emergency department) further seizures. This felt as though she likely did have a breakthrough seizure. It is felt as though she stable for discharge home. She is counseled regarding her diagnosis in detail and she leaves in no identifiable distress. She is instructed to follow up closely with her neurologist in case any additional medication adjustments are necessary. Disposition Clinical Impression: Generalized seizure Disposition: HOME SELF-CARE Condition: Good Instructions: Recurrent Seizures in Adults (ED) Is patient prescribed a controlled substance at d/c from ED?: No Referrals: Brooke Martin MD [Primary Care Provider] - 1-2 days Time of Disposition: 18:28
[2018-04-04 18:48] VITALS: BP 138/70; PULSE 78; TEMP 97.8
== END 2018-04-04 18:47 | disposition home or self-care (01) ==
LOC: EC 17:42
DX: G40.909 Epilepsy, unspecified, not intractable, without status epilepticus (principal); R00.0 Tachycardia, unspecified; K21.9 Gastro-esophageal reflux disease without esophagitis; J45.909 Unspecified asthma, uncomplicated; F31.9 Bipolar disorder, unspecified; F90.9 Attention-deficit hyperactivity disorder, unspecified type; F43.10 Post-traumatic stress disorder, unspecified; Z87.891 Personal history of nicotine dependence; Z79.899 Other long term (current) drug therapy; Z88.1 Allergy status to other antibiotic agents; Z88.2 Allergy status to sulfonamides; Z88.7 Allergy status to serum and vaccine; Z88.8 Allergy status to other drugs, medicaments and biological substances; Z91.012 Allergy to eggs; Z88.5 Allergy status to narcotic agent
CPT/HCPCS: 93005; 99284; 96374; J2060

== ENCOUNTER 2018-04-06 17:04 | Emergency (ER) | payer OTHER ==
[2018-04-06] MEDS ORDERED: levETIRAcetam 500 MG TAB PO STA (17:21)
--- NOTE | 2018-04-06 17:39 | ED ---
Seizure HPI - General Chief Complaint: Seizure Stated Complaint: Seizure Time Seen by Provider: 04/06/18 17:08 Source: patient, EMS, RN notes reviewed Mode of arrival: EMS Limitations: no limitations - History of Present Illness Initial Comments: 32-year-old female presented emergency Department with chief complaint of seizure-like activity. This was witnessed seizure with no postictal state. Patient was seen here a few days ago with complaint of possible seizure. Patient states she is currently taking Keppra only started 2 months ago because she had been off for several years with no symptoms. She states that she went back to her neurologist reportedly had some seizure-like activity so was started on Keppra 500 mg twice a day. Patient's claims that she had 2 today but she had no confusion after. She states she discussed tired patient states states that she also wants a test while in the emergency department. Patient has no focal weakness denies headache no dizziness no chest pain - Related Data Home Medications Medication Instructions Recorded Confirmed Atorvastatin [Lipitor] 10 mg PO DAILY 12/14/17 04/04/18 SUMAtriptan SUCCINATE [Imitrex] 100 mg PO DAILY PRN 12/14/17 04/04/18 Albuterol Inhaler [Ventolin Hfa 2 puff INHALATION RT-QID PRN 01/15/18 04/04/18 Inhaler] Acetaminophen Tab [Tylenol] 650 mg PO Q6HR PRN 02/11/18 04/04/18 Atomoxetine HCl [Strattera] 25 mg PO QAM 02/14/18 04/04/18 Omeprazole [PriLOSEC] 20 mg PO AC-BID 02/14/18 04/04/18 Ranitidine HCl [Zantac] 300 mg PO DAILY 02/14/18 04/04/18 ARIPiprazole [Abilify] 10 mg PO DAILY 03/20/18 04/04/18 Previous Rx's Medication Instructions Recorded Escitalopram [Lexapro] 10 mg PO DAILY #14 tab 11/23/17 Ondansetron Odt [Zofran Odt] 4 mg PO Q8HR PRN #10 tab 03/06/18 levETIRAcetam [Keppra] 500 mg PO Q12HR #30 tab 03/10/18 Ibuprofen 800 mg PO Q6HR PRN #20 tablet 03/26/18 Allergies Allergy/AdvReac Type Severity Reaction Status Date / Time azithromycin Allergy Rash/Hives Verified 04/04/18 18:05 divalproex sodium Allergy "had Verified 04/04/18 18:05 [From Depakote] seizure when coming off" hydrocodone Allergy Rash/Hives Verified 04/04/18 18:05 Quinolones Allergy Rash/Hives Verified 04/04/18 18:05 sulfamethoxazole Allergy Rash/Hives Verified 04/04/18 18:05 [From Bactrim] tramadol Allergy Rash/Hives Verified 04/04/18 18:05 trimethoprim [From Bactrim] Allergy Rash/Hives Verified 04/04/18 18:05 codeine AdvReac Vertigo Verified 04/04/18 18:05 diphenhydramine HCl AdvReac Rapid Verified 04/04/18 18:05 [From Benadryl] Heart Rate egg AdvReac Nausea & Verified 04/04/18 18:05 Vomiting Influenza Virus Vaccines AdvReac Nausea & Verified 04/04/18 18:05 Vomiting Review of Systems ROS Statement: Those systems with pertinent positive or pertinent negative responses have been documented in the HPI. ROS Other: All systems not noted in ROS Statement are negative. Past Medical History Past Medical History: Asthma, Chest Pain / Angina, GERD/Reflux, Myocardial Infarction ([place]), Seizure Disorder, Syncope Additional Past Medical History / Comment(s): migraines, seizure 2 yrs ago from "depakote", [place] x 2, low blood pressures, irregular heart beat, tachycardia, Last Myocardial Infarction Date:: 10/2016 History of Any Multi-Drug Resistant Organisms: None Reported Past Surgical History: Cholecystectomy, Tubal Ligation Additional Past Surgical History / Comment(s): Tilt table test, wisdom teeth extraction. Past Anesthesia/Blood Transfusion Reactions: Previous Problems w/ Anesthesia Additional Past Anesthesia/Blood Transfusion Reaction / Comment(s): "I get anxious when I wake up when my fiance is not there" Past Psychological History: ADD/ADHD, Anxiety, Bipolar, Depression, PTSD Smoking Status: Former smoker Past Alcohol Use History: None Reported Past Drug Use History: None Reported - Past Family History Father Family Medical History: Cancer Additional Family Medical History / Comment(s): Father at age 61 from lung [place] Mother Family Medical History: No Reported History, Seizure Disorder Additional Family Medical History / Comment(s): Mother is alive with history of bipolar/schitzophrenia Brother(s) Additional Family Medical History / Comment(s): She has one half brother that abuses cocaine and methamphetamines. She does not have any contact with him. Patient has 1 sister with no major medical problems. Patient does not have any children. General Exam Limitations: no limitations General appearance: alert, in no apparent distress Head exam: Present: atraumatic, normocephalic, normal inspection Eye exam: Present: normal appearance, PERRL, EOMI. Absent: scleral icterus, conjunctival injection, periorbital swelling ENT exam: Present: normal exam, mucous membranes moist Neck exam: Present: normal inspection, full ROM. Absent: tenderness, meningismus, lymphadenopathy Respiratory exam: Present: normal lung sounds bilaterally. Absent: respiratory distress, wheezes, rales, rhonchi, stridor Cardiovascular Exam: Present: regular rate, normal rhythm, normal heart sounds. Absent: systolic murmur, diastolic murmur, rubs, gallop, clicks GI/Abdominal exam: Present: soft, normal bowel sounds. Absent: distended, tenderness, guarding, rebound, rigid Neurological exam: Present: alert, oriented X3, CN II-XII intact, reflexes normal. Absent: motor sensory deficit Skin exam: Present: warm, dry, intact, normal color. Absent: rash Course Vital Signs 04/06/18 04/06/18 17:11 18:18 Temperature 98.3 F Pulse Rate 119 H 99 Respiratory 16 17 Rate Blood Pressure 106/66 95/53 O2 Sat by Pulse 96 99 Oximetry Medical Decision Making - Medical Decision Making 32-year-old female presented for seizure activity. Patient has normal exam is time she'll be given additional dose of Keppra and Keppra level is drawn. Patient had no postictal state and is felt less likely to be a seizure disorder. She is advised to call neurologist tomorrow for possible medication change or reevaluation. Patient is stable be discharged to her friend. She did request test which was negative. - Lab Data Lab Results 04/06/18 04/06/18 Range/Units 18:00 18:00 Urine Color Yellow Urine Appearance Cloudy H (Clear) Urine pH 6.0 (5.0-8.0) Ur Specific Leonard 1.021 (1.001-1.035) Urine Protein Negative (Negative) Urine Glucose (UA) Negative (Negative) Urine Ketones Negative (Negative) Urine Blood Negative (Negative) Urine Nitrite Negative (Negative) Urine Bilirubin Negative (Negative) Urine Urobilinogen 2.0 (<2.0) mg/dL Ur Leukocyte Esterase Negative (Negative) Urine RBC 6 H (0-5) /hpf Urine WBC 3 (0-5) /hpf Ur Squamous Epith Cells 17 H (0-4) /hpf Amorphous Sediment Rare H (None) /hpf Urine Bacteria Rare H (None) /hpf Hyaline Casts 1 (0-2) /lpf Urine Mucus Rare H (None) /hpf Urine HCG, Qual Not Detected (Not Detectd) Disposition Clinical Impression: Seizure-like activity Disposition: HOME SELF-CARE Condition: Stable Instructions: Recurrent Seizures in Adults (ED) Additional Instructions: Follow-up with your neurologist tomorrow.Please return to the Emergency Department if symptoms worsen or any other concerns. Is patient prescribed a controlled substance at d/c from ED?: No Referrals: Brooke Martin MD [Primary Care Provider] - 1-2 days Elton Estrada MD [STAFF PHYSICIAN] - 1-2 days Time of Disposition: 17:39
[2018-04-06 18:34] LABS: Amorphous Sediment,Urine Rare /hpf; Appearance,Urine Cloudy (Clear); Bacteria,Urine Rare /hpf; Bilirubin,Urine Negative (Negative); Blood,Urine Negative (Negative); Color,Urine Yellow; Glucose,Urine (UA) Negative (Negative); Hyaline Casts,Urine 1 /lpf (0-2); Ketones,Urine Negative (Negative); Leukocyte Esterase,Urine Negative (Negative); Mucus,Urine Rare /hpf; Nitrite,Urine Negative (Negative); Protein,Urine Negative (Negative); RBC,Urine 6 /hpf (0-5); Specific Gravity,Urine 1.021 (1.001-1.035); Squamous Epithelial Cell,Urine 17 /hpf (0-4); WBC,Urine 3 /hpf (0-5)
[2018-04-06 18:39] LABS: Amphetamine Screen,Urine Not Detected (NotDetected); Barbiturate Screen,Urine Not Detected (NotDetected); Benzodiazepines Screen,Urine Detected (NotDetected); Cocaine Screen,Urine Not Detected (NotDetected); Methadone Screen, Urine Not Detected (NotDetected); Opiate Screen,Urine Not Detected (NotDetected); Oxycodone Screen, Urine Not Detected (NotDetected); Phencyclidine Screen,Urine Not Detected (NotDetected); Tricyclic Antidepressant,Urine Not Detected (NotDetected); Urn Cannabinoid Scrn Not Detected (NotDetected)
[2018-04-06 18:59] VITALS: BP 98/68; PULSE 108; RESP 18; TEMP 98.5
== END 2018-04-06 18:59 | disposition home or self-care (01) ==
LOC: EC 17:04
DX: G40.909 Epilepsy, unspecified, not intractable, without status epilepticus (principal); K21.9 Gastro-esophageal reflux disease without esophagitis; I25.2 Old myocardial infarction; F90.9 Attention-deficit hyperactivity disorder, unspecified type; F31.9 Bipolar disorder, unspecified; Z32.02 Encounter for pregnancy test, result negative; Z88.1 Allergy status to other antibiotic agents; Z88.2 Allergy status to sulfonamides; Z88.5 Allergy status to narcotic agent; Z88.7 Allergy status to serum and vaccine; Z88.8 Allergy status to other drugs, medicaments and biological substances; Z91.012 Allergy to eggs; Z79.899 Other long term (current) drug therapy; Z87.891 Personal history of nicotine dependence
CPT/HCPCS: 36415; 80177; 80306; 81001; 81025; 99284

== ENCOUNTER → 2018-04-08 | Outpatient (CLI) | payer OTHER | END | disposition home or self-care (01) | LOC: LABWHC1 06:30 | PROVIDERS: ATTEND Psychiatry & Neurology Neurology | DX: G40.009 Localization-related (focal) (partial) idiopathic epilepsy and epileptic syndromes with seizures of localized onset, not intractable, without status epilepticus (principal) | CPT/HCPCS: 36415; 80177 ==

== ENCOUNTER 2018-04-12 18:50 | Emergency (ER) | payer OTHER ==
--- NOTE | 2018-04-12 19:22 | ED ---
General Adult HPI - General Chief complaint: Psychiatric Symptoms Stated complaint: EPS eval Time Seen by Provider: 04/12/18 19:00 Source: patient, RN notes reviewed Mode of arrival: ambulatory Limitations: no limitations - History of Present Illness Initial comments: 32-year-old female presents to the emergency department for a chief complaint of suicidal ideation 3 days. Patient states she has been thinking about it for the past few days but today her mother "set her off." Patient states her mother called her names and told her she was ungrateful which triggered thoughts of suicide. Patient states she did have a plan which was to overdose on prescription medications which are within the home. Patient denies having taken any medication now. Patient does have a history of anxiety and depression and does take 2 medications for this. Patient has no other complaints at this time including shortness of breath, chest pain, abdominal pain, nausea or vomiting, headache, or visual changes. - Related Data Home Medications Medication Instructions Recorded Confirmed Atorvastatin [Lipitor] 10 mg PO DAILY 12/14/17 04/04/18 SUMAtriptan SUCCINATE [Imitrex] 100 mg PO DAILY PRN 12/14/17 04/04/18 Albuterol Inhaler [Ventolin Hfa 2 puff INHALATION RT-QID PRN 01/15/18 04/04/18 Inhaler] Acetaminophen Tab [Tylenol] 650 mg PO Q6HR PRN 02/11/18 04/04/18 Atomoxetine HCl [Strattera] 25 mg PO QAM 02/14/18 04/04/18 Omeprazole [PriLOSEC] 20 mg PO AC-BID 02/14/18 04/04/18 Ranitidine HCl [Zantac] 300 mg PO DAILY 02/14/18 04/04/18 ARIPiprazole [Abilify] 10 mg PO DAILY 03/20/18 04/04/18 Previous Rx's Medication Instructions Recorded Escitalopram [Lexapro] 10 mg PO DAILY #14 tab 11/23/17 Ondansetron Odt [Zofran Odt] 4 mg PO Q8HR PRN #10 tab 03/06/18 levETIRAcetam [Keppra] 500 mg PO Q12HR #30 tab 03/10/18 Ibuprofen 800 mg PO Q6HR PRN #20 tablet 03/26/18 Allergies Allergy/AdvReac Type Severity Reaction Status Date / Time azithromycin Allergy Rash/Hives Verified 04/04/18 18:05 divalproex sodium Allergy "had Verified 04/04/18 18:05 [From Depakote] seizure when coming off" hydrocodone Allergy Rash/Hives Verified 04/04/18 18:05 Quinolones Allergy Rash/Hives Verified 04/04/18 18:05 sulfamethoxazole Allergy Rash/Hives Verified 04/04/18 18:05 [From Bactrim] tramadol Allergy Rash/Hives Verified 04/04/18 18:05 trimethoprim [From Bactrim] Allergy Rash/Hives Verified 04/04/18 18:05 codeine AdvReac Vertigo Verified 04/04/18 18:05 diphenhydramine HCl AdvReac Rapid Verified 04/04/18 18:05 [From Benadryl] Heart Rate egg AdvReac Nausea & Verified 04/04/18 18:05 Vomiting Influenza Virus Vaccines AdvReac Nausea & Verified 04/04/18 18:05 Vomiting Review of Systems ROS Statement: Those systems with pertinent positive or pertinent negative responses have been documented in the HPI. ROS Other: All systems not noted in ROS Statement are negative. Past Medical History Past Medical History: Asthma, Chest Pain / Angina, GERD/Reflux, Myocardial Infarction ([place]), Seizure Disorder, Syncope Additional Past Medical History / Comment(s): migraines, seizure 2 yrs ago from "depakote", [place] x 2, low blood pressures, irregular heart beat, tachycardia, Last Myocardial Infarction Date:: 10/2016 History of Any Multi-Drug Resistant Organisms: None Reported Past Surgical History: Cholecystectomy, Tubal Ligation Additional Past Surgical History / Comment(s): Tilt table test, wisdom teeth extraction. Past Anesthesia/Blood Transfusion Reactions: Previous Problems w/ Anesthesia Additional Past Anesthesia/Blood Transfusion Reaction / Comment(s): "I get anxious when I wake up when my fiance is not there" Past Psychological History: ADD/ADHD, Anxiety, Bipolar, Depression, PTSD Smoking Status: Former smoker Past Alcohol Use History: None Reported Past Drug Use History: None Reported - Past Family History Father Family Medical History: Cancer Additional Family Medical History / Comment(s): Father at age 61 from lung [place] Mother Family Medical History: No Reported History, Seizure Disorder Additional Family Medical History / Comment(s): Mother is alive with history of bipolar/schitzophrenia Brother(s) Additional Family Medical History / Comment(s): She has one half brother that abuses cocaine and methamphetamines. She does not have any contact with him. Patient has 1 sister with no major medical problems. Patient does not have any children. General Exam Limitations: no limitations General appearance: alert, in no apparent distress Head exam: Present: atraumatic, normocephalic, normal inspection Eye exam: Present: normal appearance. Absent: scleral icterus, conjunctival injection ENT exam: Present: normal exam, mucous membranes moist Neck exam: Present: normal inspection, full ROM. Absent: tenderness, meningismus, lymphadenopathy Respiratory exam: Present: normal lung sounds bilaterally. Absent: respiratory distress, wheezes, rales, rhonchi, stridor Cardiovascular Exam: Present: regular rate, normal rhythm, normal heart sounds. Absent: systolic murmur, diastolic murmur, rubs, gallop, clicks Course Vital Signs 04/12/18 04/12/18 04/12/18 18:56 19:02 19:19 Temperature 98.6 F 98.6 F Pulse Rate 131 H 117 H Respiratory 17 20 Rate Blood Pressure 112/84 117/70 O2 Sat by Pulse 97 97 Oximetry Medical Decision Making - Medical Decision Making 32-year-old female presents to the emergency department for a chief complaint of suicidal ideation 3 days. Patient states thoughts increased today after her mother called her names. Patient states she has a plan of overdosing on prescription medications. EPS consulted. According to Doris from EPS, [facility] Patient also states she feels safe to go home. Medications were removed from the house and patient has 2 close family members to watch over her. Mobile crisis will contact her [facility]. Patient will see [facility] tomorrow. She was educated to return to the emergency Department if she has any worsening symptoms or further thoughts of suicide. - Lab Data Lab Results 04/12/18 Range/Units 19:20 Urine Opiates Screen Not Detected (NotDetected) Ur Oxycodone Screen Not Detected (NotDetected) Urine Methadone Screen Not Detected (NotDetected) Ur Propoxyphene Screen Not Detected (NotDetected) Ur Barbiturates Screen Not Detected (NotDetected) U Tricyclic Antidepress Not Detected (NotDetected) Ur Phencyclidine Scrn Not Detected (NotDetected) Ur Amphetamines Screen Not Detected (NotDetected) U Methamphetamines Scrn Not Detected (NotDetected) U Benzodiazepines Scrn Not Detected (NotDetected) Urine Cocaine Screen Not Detected (NotDetected) U Marijuana (THC) Screen Not Detected (NotDetected) Disposition Clinical Impression: Depression Disposition: HOME SELF-CARE Condition: Good Instructions: Depression (ED) Additional Instructions: Please follow up with mobile crisis unit tonight. Return to the emergency department if you have any further thoughts of suicide or worsening symptoms. Is patient prescribed a controlled substance at d/c from ED?: No Referrals: Brooke Martin MD [Primary Care Provider] - 1-2 days Time of Disposition: 20:28
[2018-04-12 19:55] LABS: Amphetamine Screen,Urine Not Detected (NotDetected); Barbiturate Screen,Urine Not Detected (NotDetected); Benzodiazepines Screen,Urine Not Detected (NotDetected); Cocaine Screen,Urine Not Detected (NotDetected); Methadone Screen, Urine Not Detected (NotDetected); Opiate Screen,Urine Not Detected (NotDetected); Oxycodone Screen, Urine Not Detected (NotDetected); Phencyclidine Screen,Urine Not Detected (NotDetected); Tricyclic Antidepressant,Urine Not Detected (NotDetected); Urn Cannabinoid Scrn Not Detected (NotDetected)
[2018-04-12 20:38] VITALS: BP 120/78; PULSE 110; RESP 18; TEMP 98
== END 2018-04-12 20:38 | disposition home or self-care (01) ==
LOC: EC 18:50
DX: F32.9 Major depressive disorder, single episode, unspecified (principal); J45.909 Unspecified asthma, uncomplicated; K21.9 Gastro-esophageal reflux disease without esophagitis; I25.2 Old myocardial infarction; F90.9 Attention-deficit hyperactivity disorder, unspecified type; F41.9 Anxiety disorder, unspecified; F43.10 Post-traumatic stress disorder, unspecified; Z87.891 Personal history of nicotine dependence; Z79.899 Other long term (current) drug therapy; Z88.1 Allergy status to other antibiotic agents; Z88.8 Allergy status to other drugs, medicaments and biological substances; Z88.5 Allergy status to narcotic agent; Z88.2 Allergy status to sulfonamides; Z88.6 Allergy status to analgesic agent; Z91.012 Allergy to eggs; Z88.7 Allergy status to serum and vaccine
CPT/HCPCS: 80306; 82075; 99283

== ENCOUNTER 2018-04-14 12:31 | Emergency (ER) | payer OTHER ==
[2018-04-14 12:41] VITALS: BP 101/70; PULSE 110; TEMP 99
[2018-04-14 12:46] VITALS: RESP 18
--- NOTE | 2018-04-14 13:04 | XR ---
EXAMINATION TYPE: XR chest 2V DATE OF EXAM: 04/14/2018 COMPARISON: 03/26/2018 TECHNIQUE: PA and lateral views submitted. HISTORY: Cough FINDINGS: The lungs are clear and there is no pneumothorax, pleural effusion, or focal pneumonia. Surgical cl ips in the abdomen noted. IMPRESSION: 1. No acute process.
--- NOTE | 2018-04-14 13:15 | ED ---
URI HPI - General Chief Complaint: Upper Respiratory Infection Stated Complaint: Cough Time Seen by Provider: 04/14/18 12:41 Source: patient, RN notes reviewed Mode of arrival: ambulatory Limitations: no limitations - History of Present Illness Initial Comments: 32-year-old female presents emergency Department chief complaint of a cough. Patient states cough is well-known to 3 weeks. Patient states it's dry but sometimes productive. Patient denies any chest pain or pleuritic chest pain. Denies any shortness of breath, chest pain or palpitations. Patient states that she's had normal fever. Patient is she is not a smoker. Patient denies any headache, dizziness, sore throat, ear pain. - Related Data Home Medications Medication Instructions Recorded Confirmed Atorvastatin [Lipitor] 10 mg PO DAILY 12/14/17 04/04/18 SUMAtriptan SUCCINATE [Imitrex] 100 mg PO DAILY PRN 12/14/17 04/04/18 Albuterol Inhaler [Ventolin Hfa 2 puff INHALATION RT-QID PRN 01/15/18 04/04/18 Inhaler] Acetaminophen Tab [Tylenol] 650 mg PO Q6HR PRN 02/11/18 04/04/18 Atomoxetine HCl [Strattera] 25 mg PO QAM 02/14/18 04/04/18 Omeprazole [PriLOSEC] 20 mg PO AC-BID 02/14/18 04/04/18 Ranitidine HCl [Zantac] 300 mg PO DAILY 02/14/18 04/04/18 ARIPiprazole [Abilify] 10 mg PO DAILY 03/20/18 04/04/18 Previous Rx's Medication Instructions Recorded Escitalopram [Lexapro] 10 mg PO DAILY #14 tab 11/23/17 Ondansetron Odt [Zofran Odt] 4 mg PO Q8HR PRN #10 tab 03/06/18 levETIRAcetam [Keppra] 500 mg PO Q12HR #30 tab 03/10/18 Ibuprofen 800 mg PO Q6HR PRN #20 tablet 03/26/18 methylPREDNISolone [Medrol Dose 4 mg PO DIRECTED #1 pack 04/14/18 Pack] Allergies Allergy/AdvReac Type Severity Reaction Status Date / Time azithromycin Allergy Rash/Hives Verified 04/04/18 18:05 divalproex sodium Allergy "had Verified 04/04/18 18:05 [From Depakote] seizure when coming off" hydrocodone Allergy Rash/Hives Verified 04/04/18 18:05 Quinolones Allergy Rash/Hives Verified 04/04/18 18:05 sulfamethoxazole Allergy Rash/Hives Verified 04/04/18 18:05 [From Bactrim] tramadol Allergy Rash/Hives Verified 04/04/18 18:05 trimethoprim [From Bactrim] Allergy Rash/Hives Verified 04/04/18 18:05 codeine AdvReac Vertigo Verified 04/04/18 18:05 diphenhydramine HCl AdvReac Rapid Verified 04/04/18 18:05 [From Benadryl] Heart Rate egg AdvReac Nausea & Verified 04/04/18 18:05 Vomiting Influenza Virus Vaccines AdvReac Nausea & Verified 04/04/18 18:05 Vomiting Review of Systems ROS Statement: Those systems with pertinent positive or pertinent negative responses have been documented in the HPI. ROS Other: All systems not noted in ROS Statement are negative. Past Medical History Past Medical History: Asthma, Chest Pain / Angina, GERD/Reflux, Myocardial Infarction ([place]), Seizure Disorder, Syncope Additional Past Medical History / Comment(s): migraines, seizure 2 yrs ago from "depakote", [place] x 2, low blood pressures, irregular heart beat, tachycardia, Last Myocardial Infarction Date:: 10/2016 History of Any Multi-Drug Resistant Organisms: None Reported Past Surgical History: Cholecystectomy, Tubal Ligation Additional Past Surgical History / Comment(s): Tilt table test, wisdom teeth extraction. Past Anesthesia/Blood Transfusion Reactions: Previous Problems w/ Anesthesia Additional Past Anesthesia/Blood Transfusion Reaction / Comment(s): "I get anxious when I wake up when my fiance is not there" Past Psychological History: ADD/ADHD, Anxiety, Bipolar, Depression, PTSD Smoking Status: Former smoker Past Alcohol Use History: None Reported Past Drug Use History: None Reported - Past Family History Father Family Medical History: Cancer Additional Family Medical History / Comment(s): Father at age 61 from lung [place] Mother Family Medical History: No Reported History, Seizure Disorder Additional Family Medical History / Comment(s): Mother is alive with history of bipolar/schitzophrenia Brother(s) Additional Family Medical History / Comment(s): She has one half brother that abuses cocaine and methamphetamines. She does not have any contact with him. Patient has 1 sister with no major medical problems. Patient does not have any children. General Exam Limitations: no limitations General appearance: alert, in no apparent distress Head exam: Present: atraumatic, normocephalic, normal inspection Eye exam: Present: normal appearance, PERRL, EOMI. Absent: scleral icterus, conjunctival injection, periorbital swelling ENT exam: Present: normal exam, normal oropharynx, mucous membranes moist, TM's normal bilaterally Neck exam: Present: normal inspection, full ROM. Absent: tenderness, meningismus, lymphadenopathy Respiratory exam: Present: normal lung sounds bilaterally. Absent: respiratory distress, wheezes, rales, rhonchi, stridor Cardiovascular Exam: Present: regular rate, normal rhythm, normal heart sounds. Absent: systolic murmur, diastolic murmur, rubs, gallop, clicks Neurological exam: Present: alert, oriented X3, CN II-XII intact Skin exam: Present: warm, dry, intact, normal color. Absent: rash Course Vital Signs 04/14/18 04/14/18 12:37 12:44 Temperature 99.0 F Pulse Rate 110 H Respiratory 20 18 Rate Blood Pressure 101/70 O2 Sat by Pulse 95 Oximetry Medical Decision Making - Medical Decision Making 32-year-old female presented for a cough. Patient had chest x-ray shows no acute abnormality. Patient's symptoms are consistent with acute bronchitis. Patient we started on Medrol Dosepak. Return parameters were discussed. Disposition Clinical Impression: Bronchitis Disposition: HOME SELF-CARE Condition: Stable Instructions: Acute Bronchitis (ED) Additional Instructions: Please return to the Emergency Department if symptoms worsen or any other concerns. Prescriptions: methylPREDNISolone [Medrol Dose Pack] 4 mg PO DIRECTED #1 pack Is patient prescribed a controlled substance at d/c from ED?: No Referrals: Brooke Martin MD [Primary Care Provider] - 1-2 days Time of Disposition: 13:15
== END 2018-04-14 13:15 | disposition home or self-care (01) ==
LOC: EC 12:31
DX: J40 Bronchitis, not specified as acute or chronic (principal); K21.9 Gastro-esophageal reflux disease without esophagitis; I25.2 Old myocardial infarction; F90.9 Attention-deficit hyperactivity disorder, unspecified type; F31.9 Bipolar disorder, unspecified; F41.9 Anxiety disorder, unspecified; Z88.1 Allergy status to other antibiotic agents; Z88.2 Allergy status to sulfonamides; Z88.5 Allergy status to narcotic agent; Z88.7 Allergy status to serum and vaccine; Z88.8 Allergy status to other drugs, medicaments and biological substances; Z91.012 Allergy to eggs; Z79.899 Other long term (current) drug therapy; Z87.891 Personal history of nicotine dependence
CPT/HCPCS: 71046; 99283

== ENCOUNTER 2018-04-20 11:11 | Emergency (ER) | payer OTHER ==
[2018-04-20 11:26] VITALS: RESP 18
[2018-04-20] MEDS ORDERED: ACETAMINOPHEN TAB 325 MG TAB PO STA (11:49)
--- NOTE | 2018-04-20 11:56 | ED ---
Abdominal Pain HPI - General Chief Complaint: Abdominal Pain Stated Complaint: POSS MISCARRAGE Time Seen by Provider: 04/20/18 11:37 Source: patient Mode of arrival: ambulatory Limitations: no limitations - History of Present Illness Initial Comments: 32-year-old female patient presents the emergency department today for complaints of vaginal bleeding and abdominal cramping. The patient had a blood clot come out on her tampon was concerned that she may be having a miscarriage. Patient states that she has been feeling like she might be . Patient states she is having suprapubic abdominal cramping. Patient states that her period was 3 weeks late. She denies any fever, chills, hematuria, dysuria, urinary frequency, urinary urgency. Denies any nausea or vomiting. Denies any back pain. Patient denies any recent rash, shortness breath, chest pain, diarrhea, constipation, back pain, numbness, tingling, dizziness, weakness, headache, visual changes, or any other complaints. - Related Data Home Medications Medication Instructions Recorded Confirmed Atorvastatin [Lipitor] 10 mg PO DAILY 12/14/17 04/04/18 SUMAtriptan SUCCINATE [Imitrex] 100 mg PO DAILY PRN 12/14/17 04/04/18 Albuterol Inhaler [Ventolin Hfa 2 puff INHALATION RT-QID PRN 01/15/18 04/04/18 Inhaler] Acetaminophen Tab [Tylenol] 650 mg PO Q6HR PRN 02/11/18 04/04/18 Atomoxetine HCl [Strattera] 25 mg PO QAM 02/14/18 04/04/18 Omeprazole [PriLOSEC] 20 mg PO AC-BID 02/14/18 04/04/18 Ranitidine HCl [Zantac] 300 mg PO DAILY 02/14/18 04/04/18 ARIPiprazole [Abilify] 10 mg PO DAILY 03/20/18 04/04/18 Previous Rx's Medication Instructions Recorded Escitalopram [Lexapro] 10 mg PO DAILY #14 tab 11/23/17 Ondansetron Odt [Zofran Odt] 4 mg PO Q8HR PRN #10 tab 03/06/18 levETIRAcetam [Keppra] 500 mg PO Q12HR #30 tab 03/10/18 Ibuprofen 800 mg PO Q6HR PRN #20 tablet 03/26/18 methylPREDNISolone [Medrol Dose 4 mg PO DIRECTED #1 pack 04/14/18 Pack] Allergies Allergy/AdvReac Type Severity Reaction Status Date / Time azithromycin Allergy Rash/Hives Verified 04/20/18 11:22 divalproex sodium Allergy "had Verified 04/20/18 11:22 [From Depakote] seizure when coming off" hydrocodone Allergy Rash/Hives Verified 04/20/18 11:22 Quinolones Allergy Rash/Hives Verified 04/20/18 11:22 sulfamethoxazole Allergy Rash/Hives Verified 04/20/18 11:22 [From Bactrim] tramadol Allergy Rash/Hives Verified 04/20/18 11:22 trimethoprim [From Bactrim] Allergy Rash/Hives Verified 04/20/18 11:22 codeine AdvReac Vertigo Verified 04/20/18 11:22 diphenhydramine HCl AdvReac Rapid Verified 04/20/18 11:22 [From Benadryl] Heart Rate egg AdvReac Nausea & Verified 04/20/18 11:22 Vomiting Influenza Virus Vaccines AdvReac Nausea & Verified 04/20/18 11:22 Vomiting Review of Systems ROS Statement: Those systems with pertinent positive or pertinent negative responses have been documented in the HPI. ROS Other: All systems not noted in ROS Statement are negative. Past Medical History Past Medical History: Asthma, Chest Pain / Angina, GERD/Reflux, Myocardial Infarction ([place]), Seizure Disorder, Syncope Additional Past Medical History / Comment(s): migraines, seizure 2 yrs ago from "depakote", [place] x 2, low blood pressures, irregular heart beat, tachycardia, Last Myocardial Infarction Date:: 10/2016 History of Any Multi-Drug Resistant Organisms: None Reported Past Surgical History: Cholecystectomy, Tubal Ligation Additional Past Surgical History / Comment(s): Tilt table test, wisdom teeth extraction. Past Anesthesia/Blood Transfusion Reactions: Previous Problems w/ Anesthesia Additional Past Anesthesia/Blood Transfusion Reaction / Comment(s): "I get anxious when I wake up when my fiance is not there" Past Psychological History: ADD/ADHD, Anxiety, Bipolar, Depression, PTSD Smoking Status: Former smoker Past Alcohol Use History: None Reported Past Drug Use History: None Reported - Past Family History Father Family Medical History: Cancer Additional Family Medical History / Comment(s): Father at age 61 from lung [place] Mother Family Medical History: No Reported History, Seizure Disorder Additional Family Medical History / Comment(s): Mother is alive with history of bipolar/schitzophrenia Brother(s) Additional Family Medical History / Comment(s): She has one half brother that abuses cocaine and methamphetamines. She does not have any contact with him. Patient has 1 sister with no major medical problems. Patient does not have any children. General Exam Limitations: no limitations General appearance: alert, in no apparent distress, other (Physical well- developed, well-nourished adult female patient in no acute distress. Vital signs upon presentation are temperature 98.8F, pulse 114, respirations 18, blood pressure 117/84, pulse ox 98% on room air.) Eye exam: Present: normal appearance, PERRL, EOMI. Absent: scleral icterus, conjunctival injection, periorbital swelling ENT exam: Present: normal exam, normal oropharynx, mucous membranes moist Respiratory exam: Present: normal lung sounds bilaterally. Absent: respiratory distress, wheezes, rales, rhonchi, stridor Cardiovascular Exam: Present: regular rate, normal rhythm, normal heart sounds. Absent: systolic murmur, diastolic murmur, rubs, gallop, clicks GI/Abdominal exam: Present: soft, tenderness (mild suprapubic abdominal tenderness), normal bowel sounds. Absent: distended, guarding, rebound, rigid Neurological exam: Present: alert, oriented X3, CN II-XII intact Psychiatric exam: Present: normal affect, normal mood Skin exam: Present: warm, dry, intact, normal color. Absent: rash Course Vital Signs 04/20/18 11:23 Temperature 98.8 F Pulse Rate 114 H Respiratory 18 Rate Blood Pressure 117/84 O2 Sat by Pulse 98 Oximetry Medical Decision Making - Medical Decision Making 32-year-old female patient presented to the emergency department today for evaluation of suprapubic cramping and vaginal bleeding. Patient's period was 3 weeks late. Patient was concern for miscarriage. HCG is negative. Did discuss results with patient and discussed that she is most likely experiencing her period. She was given Tylenol Motrin for pain control. She is instructed to follow-up with her primary care physician for recheck in 1-2 days. Return parameters discussed in detail. She verbalizes understanding and agrees with this plan. - Lab Data Lab Results 04/20/18 Range/Units 11:50 Urine HCG, Qual Not Detected (Not Detectd) Disposition Clinical Impression: Menstruation Disposition: HOME SELF-CARE Condition: Good Instructions: Dysmenorrhea (ED) Additional Instructions: Take Tylenol Motrin for pain control. Follow up with your primary care physician for recheck in 1-2 days. Return here immediately for any new, worsening, or concerning symptoms. Is patient prescribed a controlled substance at d/c from ED?: No Referrals: Brooke Martin MD [Primary Care Provider] - 1-2 days Time of Disposition: 12:21
[2018-04-20] MEDS: IBUPROFEN 600 MG TAB PO STA ×2 (12:05→12:20)
[2018-04-20 12:35] VITALS: BP 116/71; PULSE 99; TEMP 99.1
== END 2018-04-20 12:35 | disposition home or self-care (01) ==
LOC: EC 11:11
DX: N91.0 Primary amenorrhea (principal); J45.909 Unspecified asthma, uncomplicated; K21.9 Gastro-esophageal reflux disease without esophagitis; I25.2 Old myocardial infarction; F41.9 Anxiety disorder, unspecified; F31.9 Bipolar disorder, unspecified; F43.10 Post-traumatic stress disorder, unspecified; Z87.891 Personal history of nicotine dependence; Z90.49 Acquired absence of other specified parts of digestive tract; Z98.51 Tubal ligation status; Z79.899 Other long term (current) drug therapy; Z88.1 Allergy status to other antibiotic agents; Z88.2 Allergy status to sulfonamides; Z88.5 Allergy status to narcotic agent; Z88.7 Allergy status to serum and vaccine; Z88.8 Allergy status to other drugs, medicaments and biological substances; Z91.012 Allergy to eggs
CPT/HCPCS: 81025; 99284

== ENCOUNTER 2018-04-22 18:31 | Emergency (ER) | payer SELFPAY ==
[2018-04-22 19:06] VITALS: BP 109/76; PULSE 113; RESP 16; TEMP 98.5
[2018-04-22] MEDS ORDERED: KETOROLAC 30 MG/ML 1 ML VIAL IM STA (19:11)
--- NOTE | 2018-04-22 19:33 | XR ---
EXAMINATION TYPE: XR foot complete RT, XR ankle complete RT DATE OF EXAM: 04/22/2018 CLINICAL HISTORY: Right foot pain with no stated injury. TECHNIQUE: Frontal, lateral, and oblique images of the right foot and ankle are obtained. COMPARISON: None FINDINGS: There is a well-corticated old healed fracture deformity of the base of the fifth metatars al. There is no acute fracture/dislocation evident in the right foot. The joint spaces in the right foot appear within normal limits. The overlying soft tissue appears unremarkable. There is no acute fracture/dislocation evident in the right foot. The joint spaces in the right foot appear within normal limits. The overlying soft tissue appears unremarkable. IMPRESSION: There is no acute fracture or dislocation in the right foot or ankle. Well-corticated ol d healed fracture deformity the base of the fifth metatarsal.
--- NOTE | 2018-04-22 20:12 | ED ---
Lower Extremity Injury HPI - General Chief Complaint: Extremity Injury, Lower Stated Complaint: rt foot/ankle injury Time Seen by Provider: 04/22/18 19:08 Source: patient, RN notes reviewed Mode of arrival: EMS Limitations: no limitations - History of Present Illness Initial Comments: This is a 32-year-old female with past medical history of seizures and previous [place] who presents today for chief complaint of right ankle pain. Patient states that yesterday afternoon she tripped over And felt like she twisted her right ankle, she was able to walk on it after, I did not know any swelling or bruising. Patient went to her primary care Dr. Hernandez the next day. Dr. Hernandez she states took an x-ray and said that there was a fracture and that she would need to come to emergency department for repeat x-rays and a splint. Patient denies any chest pain, shortness of breath, dizziness prior to the fall , injury to head or any other extremity, numbness, tingling, loss of sensation, muscle weakness, coolness of the extremity, decreased range of motion, soft tissue swelling or ecchymosis of the right ankle. Patient couldn't get a ride so she called EMS. Patient denies any recent fever, chills, shortness of breath , chest pain, back pain, abdominal pain, nausea or vomiting, numbness or tingling, dysuria or hematuria, constipation or diarrhea, headaches or visual changes, or any other complaints. - Related Data Home Medications Medication Instructions Recorded Confirmed Atorvastatin [Lipitor] 10 mg PO DAILY 12/14/17 04/22/18 SUMAtriptan SUCCINATE [Imitrex] 100 mg PO DAILY PRN 12/14/17 04/22/18 Albuterol Inhaler [Ventolin Hfa 2 puff INHALATION RT-QID PRN 01/15/18 04/22/18 Inhaler] Acetaminophen Tab [Tylenol] 650 mg PO Q6HR PRN 02/11/18 04/22/18 Atomoxetine HCl [Strattera] 25 mg PO QAM 02/14/18 04/22/18 Omeprazole [PriLOSEC] 20 mg PO AC-BID 02/14/18 04/22/18 Ranitidine HCl [Zantac] 300 mg PO DAILY 02/14/18 04/22/18 ARIPiprazole [Abilify] 10 mg PO DAILY 03/20/18 04/22/18 Previous Rx's Medication Instructions Recorded Escitalopram [Lexapro] 10 mg PO DAILY #14 tab 11/23/17 Ondansetron Odt [Zofran Odt] 4 mg PO Q8HR PRN #10 tab 03/06/18 levETIRAcetam [Keppra] 500 mg PO Q12HR #30 tab 03/10/18 Ibuprofen 800 mg PO Q6HR PRN #20 tablet 03/26/18 methylPREDNISolone [Medrol Dose 4 mg PO DIRECTED #1 pack 04/14/18 Pack] Allergies Allergy/AdvReac Type Severity Reaction Status Date / Time azithromycin Allergy Rash/Hives Verified 04/22/18 19:26 divalproex sodium Allergy "had Verified 04/22/18 19:26 [From Depakote] seizure when coming off" hydrocodone Allergy Rash/Hives Verified 04/22/18 19:26 Quinolones Allergy Rash/Hives Verified 04/22/18 19:26 sulfamethoxazole Allergy Rash/Hives Verified 04/22/18 19:26 [From Bactrim] tramadol Allergy Rash/Hives Verified 04/22/18 19:26 trimethoprim [From Bactrim] Allergy Rash/Hives Verified 04/22/18 19:26 codeine AdvReac Vertigo Verified 04/22/18 19:26 diphenhydramine HCl AdvReac Rapid Verified 04/22/18 19:26 [From Benadryl] Heart Rate egg AdvReac Nausea & Verified 04/22/18 19:26 Vomiting Influenza Virus Vaccines AdvReac Nausea & Verified 04/22/18 19:26 Vomiting Review of Systems ROS Statement: Those systems with pertinent positive or pertinent negative responses have been documented in the HPI. ROS Other: All systems not noted in ROS Statement are negative. Constitutional: Denies: fever, chills Eyes: Denies: eye pain ENT: Denies: ear pain Respiratory: Denies: cough, dyspnea Cardiovascular: Denies: chest pain, palpitations Endocrine: Denies: fatigue Gastrointestinal: Denies: abdominal pain, nausea, vomiting Genitourinary: Denies: urgency, dysuria Musculoskeletal: Reports: as per HPI, arthralgia. Denies: back pain Skin: Denies: rash, lesions Past Medical History Past Medical History: Asthma, Chest Pain / Angina, GERD/Reflux, Myocardial Infarction ([place]), Seizure Disorder, Syncope Additional Past Medical History / Comment(s): migraines, seizure 2 yrs ago from "depakote", [place] x 2, low blood pressures, irregular heart beat, tachycardia, Last Myocardial Infarction Date:: 10/2016 History of Any Multi-Drug Resistant Organisms: None Reported Past Surgical History: Cholecystectomy, Tubal Ligation Additional Past Surgical History / Comment(s): Tilt table test, wisdom teeth extraction. Past Anesthesia/Blood Transfusion Reactions: Previous Problems w/ Anesthesia Additional Past Anesthesia/Blood Transfusion Reaction / Comment(s): "I get anxious when I wake up when my fiance is not there" Past Psychological History: ADD/ADHD, Anxiety, Bipolar, Depression, PTSD Smoking Status: Former smoker Past Alcohol Use History: None Reported Past Drug Use History: None Reported - Past Family History Father Family Medical History: Cancer Additional Family Medical History / Comment(s): Father at age 61 from lung [place] Mother Family Medical History: No Reported History, Seizure Disorder Additional Family Medical History / Comment(s): Mother is alive with history of bipolar/schitzophrenia Brother(s) Additional Family Medical History / Comment(s): She has one half brother that abuses cocaine and methamphetamines. She does not have any contact with him. Patient has 1 sister with no major medical problems. Patient does not have any children. General Exam - General Exam Comments Initial Comments: General: The patient is awake and alert, in no distress, and does not appear acutely ill. Eye: Pupils are equal, round and reactive to light, extra-ocular movements are intact. No nystagmus. There is normal conjunctiva bilaterally. No signs of icterus. Ears, nose, mouth and throat: There are moist mucous membranes and no oral lesions. Neck: The neck is supple, there is no tenderness or JVD. Cardiovascular: There is a regular rate and rhythm. No murmur, rub or gallop is appreciated. Respiratory: Lungs are clear to auscultation, respirations are non-labored, breath sounds are equal. No wheezes, stridor, rales, or rhonchi. Musculoskeletal: No erythema, soft tissue swelling or ecchymosis of the foot, ankles or knees bilaterally. 5 out of 5 strength and full sensation of the lower extremities equally bilaterally including at the ankle joint, knees, hips and feet. Patient has full sensation in lower extremities that is equal bilaterally. Compartments are soft and compressible. +2 dorsalis pedis and radial pulses bilaterally. Less than 2 second capillary refill. Tenderness to palpation over the medial aspect of the right foot. No tenderness to palpation of the ankle joint. Patient is able to fully range at the ankle, knees and hips bilaterally without difficulty or pain. No noted crepitus or laxity. No pallor of the lower extremities or color change. Negative anterior drawer test of the ankle. Neurological: A&O x 3. CN II-XII intact, There are no obvious motor or sensory deficits. Coordination appears grossly intact. Speech is normal. Skin: Skin is warm and dry and no rashes or lesions are noted. Psychiatric: Cooperative, appropriate mood & affect, normal judgment. Limitations: no limitations Course Vital Signs 04/22/18 19:04 Temperature 98.5 F Pulse Rate 113 H Respiratory 16 Rate Blood Pressure 109/76 O2 Sat by Pulse 100 Oximetry Medical Decision Making - Medical Decision Making 32-year-old female who frequently visits the emergency department for various complaints. Who appears very comfortable ambulating without difficulty to her bed. Patient states that she had seen her primary care an x-ray was obtained revealing a fracture. However x-rays obtained in the emergency department revealed no fracture of the right foot or ankle. Neurovascular exam unremarkable. Department soft and compressible. Patient was requesting a splint, however I told her that an Mann bandage would be sufficient for an ankle sprain. Patient insisted on a splint, and a posterior mold splint of the right ankle and foot was placed. Case was discussed in detail with Dr. Thakur. Given the history there is possibility of right ankle sprain, however physical examination findings were very minimal and patient appeared very comfortable during examination. Patient was discharged with primary care follow-up in 1-2 days, she was told she could take [id number] Motrin or Tylenol for pain. Patient was to return to emergency department for worsening symptoms. Patient is placed plan discharge in stable condition. Disposition Clinical Impression: Right ankle pain Disposition: HOME SELF-CARE Condition: Good Instructions: Arthralgia (ED) Additional Instructions: Please follow-up with family doctor in the next 2 days of symptoms have not improved. Please return to emergency room if the symptoms increase or worsen or for any other concerns. Is patient prescribed a controlled substance at d/c from ED?: No Referrals: Brooke Martin MD [Primary Care Provider] - 1-2 days Time of Disposition: 20:12
== END 2018-04-22 20:25 | disposition home or self-care (01) ==
LOC: EC 18:31
DX: M25.571 Pain in right ankle and joints of right foot (principal); J45.909 Unspecified asthma, uncomplicated; K21.9 Gastro-esophageal reflux disease without esophagitis; I25.2 Old myocardial infarction; G40.909 Epilepsy, unspecified, not intractable, without status epilepticus; F31.9 Bipolar disorder, unspecified; F90.9 Attention-deficit hyperactivity disorder, unspecified type; F43.10 Post-traumatic stress disorder, unspecified; Z87.891 Personal history of nicotine dependence; Z79.899 Other long term (current) drug therapy; Z88.2 Allergy status to sulfonamides; Z88.5 Allergy status to narcotic agent; Z88.1 Allergy status to other antibiotic agents; Z88.7 Allergy status to serum and vaccine; Z88.8 Allergy status to other drugs, medicaments and biological substances; Z91.012 Allergy to eggs
CPT/HCPCS: 73610; 73630; 99283; 29515; 96372; J1885

== ENCOUNTER 2018-04-29 20:12 | Emergency (ER) | payer OTHER ==
[2018-04-29 20:36] VITALS: BP 106/69; PULSE 105; RESP 16; TEMP 98.7
--- NOTE | 2018-04-29 21:02 | ED ---
Lower Extremity Injury HPI - General Chief Complaint: Extremity Injury, Lower Stated Complaint: rt ankle pain Time Seen by Provider: 04/29/18 20:48 Source: patient, RN notes reviewed Mode of arrival: ambulatory Limitations: no limitations - History of Present Illness Initial Comments: This is a 32-year-old female who presents to the emergency department with chief complaint of right ankle injury. Patient states that her ankle has been hurting for a week. She states that she tripped over her cat today. She complains of pain to the medial aspect of her right ankle. Denies any other injuries or trauma. Denies numbness or tingling. Denies fever or chills. - Related Data Home Medications Medication Instructions Recorded Confirmed Atorvastatin [Lipitor] 10 mg PO DAILY 12/14/17 04/29/18 SUMAtriptan SUCCINATE [Imitrex] 100 mg PO DAILY PRN 12/14/17 04/29/18 Albuterol Inhaler [Ventolin Hfa 2 puff INHALATION RT-QID PRN 01/15/18 04/29/18 Inhaler] Acetaminophen Tab [Tylenol] 650 mg PO Q6HR PRN 02/11/18 04/29/18 Atomoxetine HCl [Strattera] 25 mg PO QAM 02/14/18 04/29/18 Omeprazole [PriLOSEC] 20 mg PO AC-BID 02/14/18 04/29/18 Ranitidine HCl [Zantac] 300 mg PO DAILY 02/14/18 04/29/18 ARIPiprazole [Abilify] 10 mg PO DAILY 03/20/18 04/29/18 Previous Rx's Medication Instructions Recorded Escitalopram [Lexapro] 10 mg PO DAILY #14 tab 11/23/17 Ondansetron Odt [Zofran Odt] 4 mg PO Q8HR PRN #10 tab 03/06/18 levETIRAcetam [Keppra] 500 mg PO Q12HR #30 tab 03/10/18 Ibuprofen 800 mg PO Q6HR PRN #20 tablet 03/26/18 Allergies Allergy/AdvReac Type Severity Reaction Status Date / Time azithromycin Allergy Rash/Hives Verified 04/29/18 20:36 divalproex sodium Allergy "had Verified 04/29/18 20:36 [From Depakote] seizure when coming off" hydrocodone Allergy Rash/Hives Verified 04/29/18 20:36 Quinolones Allergy Rash/Hives Verified 04/29/18 20:36 sulfamethoxazole Allergy Rash/Hives Verified 04/29/18 20:36 [From Bactrim] tramadol Allergy Rash/Hives Verified 04/29/18 20:36 trimethoprim [From Bactrim] Allergy Rash/Hives Verified 04/29/18 20:36 codeine AdvReac Vertigo Verified 04/29/18 20:36 diphenhydramine HCl AdvReac Rapid Verified 04/29/18 20:36 [From Benadryl] Heart Rate egg AdvReac Nausea & Verified 04/29/18 20:36 Vomiting Influenza Virus Vaccines AdvReac Nausea & Verified 04/29/18 20:36 Vomiting Review of Systems ROS Statement: Those systems with pertinent positive or pertinent negative responses have been documented in the HPI. ROS Other: All systems not noted in ROS Statement are negative. Past Medical History Past Medical History: Asthma, Chest Pain / Angina, GERD/Reflux, Myocardial Infarction ([place]), Seizure Disorder, Syncope Additional Past Medical History / Comment(s): migraines, seizure 2 yrs ago from "depakote", [place] x 2, low blood pressures, irregular heart beat, tachycardia, Last Myocardial Infarction Date:: 10/2016 History of Any Multi-Drug Resistant Organisms: None Reported Past Surgical History: Cholecystectomy, Tubal Ligation Additional Past Surgical History / Comment(s): Tilt table test, wisdom teeth extraction. Past Anesthesia/Blood Transfusion Reactions: Previous Problems w/ Anesthesia Additional Past Anesthesia/Blood Transfusion Reaction / Comment(s): "I get anxious when I wake up when my fiance is not there" Past Psychological History: ADD/ADHD, Anxiety, Bipolar, Depression, PTSD Smoking Status: Former smoker Past Alcohol Use History: None Reported Past Drug Use History: None Reported - Past Family History Father Family Medical History: Cancer Additional Family Medical History / Comment(s): Father at age 61 from lung [place] Mother Family Medical History: No Reported History, Seizure Disorder Additional Family Medical History / Comment(s): Mother is alive with history of bipolar/schitzophrenia Brother(s) Additional Family Medical History / Comment(s): She has one half brother that abuses cocaine and methamphetamines. She does not have any contact with him. Patient has 1 sister with no major medical problems. Patient does not have any children. General Exam - General Exam Comments Initial Comments: General: Awake and alert, well-developed; in no apparent distress. Disheveled appearing. Ambulating normally. HEENT: Head atraumatic, normocephalic. Pupils are equal, round and reactive to light. Extraocular movements intact. Oropharynx moist without erythema or exudate. Neck: Supple. Normal ROM. Cardiovascular: Regular rate and rhythm. No murmurs, rubs or gallops. Chest symmetrical. Respiratory: Lungs clear to auscultation bilaterally. No wheezes, rales or rhonchi. Normal respiratory effort with no use of accessory muscles. Musculoskeletal: Normal range of motion of the right ankle. No obvious gross deformities. No soft tissue swelling, ecchymosis or erythema. Sensation is intact. Pedal pulses are 2+ equal and palpable bilaterally. Skin: [place], warm and dry without rashes or lesions. Neurological: Alert and oriented x3. CN II-XII grossly intact. Speech is fluent and answers are appropriate. No focal neuro deficits. Psychiatric: Normal mood and affect. No overt signs of depression or anxiety noted. Limitations: no limitations Course Vital Signs 04/29/18 20:34 Temperature 98.7 F Pulse Rate 105 H Respiratory 16 Rate Blood Pressure 106/69 O2 Sat by Pulse 98 Oximetry Medical Decision Making - Medical Decision Making This is a 32-year-old female who presents to the emergency department with chief complaint of right ankle injury. No swelling, erythema, ecchymosis or obvious gross deformities. Patient is neurovascularly intact. She is bearing weight and ambulating. X-ray revealed no acute abnormalities. Patient will be discharged home at this time. Recommended rice. She is in agreement and voices understanding. All questions answered. - Radiology Data Radiology results: report reviewed X-ray right ankle impression: No acute process. Disposition Clinical Impression: Right ankle pain Disposition: HOME SELF-CARE Condition: Good Instructions: Ankle Strain (ED) Additional Instructions: Please rest, ice, elevate and use ibuprofen or Tylenol as needed for pain. Please follow up with primary care provider within 1-2 days. Return to emergency department if symptoms should worsen or any concerns arise. Is patient prescribed a controlled substance at d/c from ED?: No Referrals: Brooke Martin MD [Primary Care Provider] - 1-2 days Time of Disposition: 22:20
--- NOTE | 2018-04-29 22:06 | XR ---
PROCEDURE: XR ankle complete RT 3 views DATE AND TIME: 04/29/2018 9:10 PM REFERRING PHYSICIAN: Carole Moreno CLINICAL INDICATION: PHH, Pain TECHNIQUE: Department protocol. COMPARISON: None FINDINGS: There is no fracture or malalignment. The soft tissues are unremarkable. IMPRESSION: NO ACUTE PROCESS.
== END 2018-04-29 22:27 | disposition home or self-care (01) ==
LOC: EC 20:12
DX: M25.571 Pain in right ankle and joints of right foot (principal); J45.909 Unspecified asthma, uncomplicated; K21.9 Gastro-esophageal reflux disease without esophagitis; I25.2 Old myocardial infarction; G43.909 Migraine, unspecified, not intractable, without status migrainosus; F90.9 Attention-deficit hyperactivity disorder, unspecified type; F31.9 Bipolar disorder, unspecified; Z87.891 Personal history of nicotine dependence; Z79.899 Other long term (current) drug therapy; Z88.1 Allergy status to other antibiotic agents; Z88.8 Allergy status to other drugs, medicaments and biological substances; Z88.5 Allergy status to narcotic agent; Z88.2 Allergy status to sulfonamides; Z88.6 Allergy status to analgesic agent; Z91.012 Allergy to eggs; Z88.7 Allergy status to serum and vaccine; W01.0XXA Fall on same level from slipping, tripping and stumbling without subsequent striking against object, initial encounter
CPT/HCPCS: 99283

== ENCOUNTER 2018-06-02 16:23 | Emergency (ER) | payer OTHER ==
[2018-06-02 16:30] VITALS: RESP 16
--- NOTE | 2018-06-02 16:57 | ED ---
General Adult HPI - General Chief complaint: Shortness of Breath Stated complaint: SIVAKUMAR Time Seen by Provider: 06/02/18 16:38 Source: patient Mode of arrival: EMS Limitations: no limitations - History of Present Illness Initial comments: 32-year-old female presents to the emergency department for a chief complaint of cough 1.5 weeks. Patient states the cough seems to be worsening. She states when she is coughing she becomes short of breath. She states it is now productive and she is coughing up green phlegm. Patient states she did have a fever at home today of 102. Patient denies smoking. She denies history of asthma. Patient received a DuoNeb and IV Solu-Medrol in the ambulance. Patient has no other complaints at this time including chest pain, abdominal pain, nausea or vomiting, headache, or visual changes. - Related Data Home Medications Medication Instructions Recorded Confirmed Atorvastatin [Lipitor] 10 mg PO DAILY 12/14/17 04/29/18 SUMAtriptan SUCCINATE [Imitrex] 100 mg PO DAILY PRN 12/14/17 04/29/18 Albuterol Inhaler [Ventolin Hfa 2 puff INHALATION RT-QID PRN 01/15/18 04/29/18 Inhaler] Acetaminophen Tab [Tylenol] 650 mg PO Q6HR PRN 02/11/18 04/29/18 Atomoxetine HCl [Strattera] 25 mg PO QAM 02/14/18 04/29/18 Omeprazole [PriLOSEC] 20 mg PO AC-BID 02/14/18 04/29/18 Ranitidine HCl [Zantac] 300 mg PO DAILY 02/14/18 04/29/18 ARIPiprazole [Abilify] 10 mg PO DAILY 03/20/18 04/29/18 Previous Rx's Medication Instructions Recorded Escitalopram [Lexapro] 10 mg PO DAILY #14 tab 11/23/17 Ondansetron Odt [Zofran Odt] 4 mg PO Q8HR PRN #10 tab 03/06/18 levETIRAcetam [Keppra] 500 mg PO Q12HR #30 tab 03/10/18 Ibuprofen 800 mg PO Q6HR PRN #20 tablet 03/26/18 Amoxicillin 875 mg PO Q12HR #20 tablet 06/02/18 Allergies Allergy/AdvReac Type Severity Reaction Status Date / Time azithromycin Allergy Rash/Hives Verified 06/02/18 16:30 divalproex sodium Allergy "had Verified 06/02/18 16:30 [From Depakote] seizure when coming off" hydrocodone Allergy Rash/Hives Verified 06/02/18 16:30 Quinolones Allergy Rash/Hives Verified 06/02/18 16:30 sulfamethoxazole Allergy Rash/Hives Verified 06/02/18 16:30 [From Bactrim] tramadol Allergy Rash/Hives Verified 06/02/18 16:30 trimethoprim [From Bactrim] Allergy Rash/Hives Verified 06/02/18 16:30 codeine AdvReac Vertigo Verified 06/02/18 16:30 diphenhydramine HCl AdvReac Rapid Verified 06/02/18 16:30 [From Benadryl] Heart Rate egg AdvReac Nausea & Verified 06/02/18 16:30 Vomiting Influenza Virus Vaccines AdvReac Nausea & Verified 06/02/18 16:30 Vomiting Review of Systems ROS Statement: Those systems with pertinent positive or pertinent negative responses have been documented in the HPI. ROS Other: All systems not noted in ROS Statement are negative. Past Medical History Past Medical History: Asthma, Chest Pain / Angina, GERD/Reflux, Myocardial Infarction ([place]), Seizure Disorder, Syncope Additional Past Medical History / Comment(s): migraines, seizure 2 yrs ago from "depakote", [place] x 2, low blood pressures, irregular heart beat, tachycardia, Last Myocardial Infarction Date:: 10/2016 History of Any Multi-Drug Resistant Organisms: None Reported Past Surgical History: Cholecystectomy, Tubal Ligation Additional Past Surgical History / Comment(s): Tilt table test, wisdom teeth extraction. Past Anesthesia/Blood Transfusion Reactions: Previous Problems w/ Anesthesia Additional Past Anesthesia/Blood Transfusion Reaction / Comment(s): "I get anxious when I wake up when my fiance is not there" Past Psychological History: ADD/ADHD, Anxiety, Bipolar, Depression, PTSD Smoking Status: Former smoker Past Alcohol Use History: None Reported Past Drug Use History: None Reported - Past Family History Father Family Medical History: Cancer Additional Family Medical History / Comment(s): Father at age 61 from lung CA Mother Family Medical History: No Reported History, Seizure Disorder Additional Family Medical History / Comment(s): Mother is alive with history of bipolar/schitzophrenia Brother(s) Additional Family Medical History / Comment(s): She has one half brother that abuses cocaine and methamphetamines. She does not have any contact with him. Patient has 1 sister with no major medical problems. Patient does not have any children. General Exam Limitations: no limitations General appearance: alert, in no apparent distress Head exam: Present: atraumatic, normocephalic, normal inspection Eye exam: Present: normal appearance. Absent: scleral icterus, conjunctival injection ENT exam: Present: normal exam, mucous membranes moist Neck exam: Present: normal inspection, full ROM. Absent: tenderness, meningismus, lymphadenopathy Respiratory exam: Present: normal lung sounds bilaterally. Absent: respiratory distress, wheezes, rales, rhonchi, stridor Cardiovascular Exam: Present: regular rate, normal rhythm, normal heart sounds. Absent: systolic murmur, diastolic murmur, rubs, gallop, clicks GI/Abdominal exam: Present: soft, normal bowel sounds. Absent: distended, tenderness, guarding, rebound, rigid Neurological exam: Present: alert, oriented X3, CN II-XII intact Psychiatric exam: Present: normal affect (Patient is well-appearing sitting up in bed cooperative and interactive), normal mood Skin exam: Present: warm, dry, intact, normal color. Absent: rash Course Vital Signs 06/02/18 06/02/18 16:25 18:05 Temperature 96.7 F L 96.9 F L Pulse Rate 117 H 111 H Respiratory 16 16 Rate Blood Pressure 108/66 105/68 O2 Sat by Pulse 97 97 Oximetry Medical Decision Making - Medical Decision Making 32 yo F presents for cough and shortness of breath when coughing x 1.5 weeks. Patient is well known to the ER. She denies any exertional shortness of breath or history of asthma. Patient received [facility] ambulance before presenting to ER which is likley contributing to tachycardia. Patients past records show a baseline of tachycardia. Patient states she had a fever at home. Afebrile in the ED. Denies chance of . On exam no wheezing noted and O2 sat 97%. CXR shows no evidence of pneumonia. CBC and CMP unremarkable. No leukocytosis. Patient states she is ready to go home and would like to be discharged. Patient states she would like an antibiotic but has an extensive allergy list. She will be given amoxicillin. She will follow up with primary care in 1-2 days. She will return if she has any worsening SOB or additional symptoms. - Lab Data Result diagrams: 06/02/18 17:10 06/02/18 17:10 Lab Results 06/02/18 06/02/18 06/02/18 Range/Units 17:10 17:10 17:10 WBC 8.3 (3.8-10.6) k/uL RBC 4.26 (3.80-5.40) m/uL Hgb 13.8 (11.4-16.0) gm/dL Hct 40.7 (34.0-46.0) % MCV 95.4 (80.0-100.0) fL MCH 32.3 (25.0-35.0) pg MCHC 33.9 (31.0-37.0) g/dL RDW 13.1 (11.5-15.5) % Plt Count 269 (150-450) k/uL Neutrophils % 50 % Lymphocytes % 39 % Monocytes % 6 % Eosinophils % 1 % Basophils % 1 % Neutrophils # 4.1 (1.3-7.7) k/uL Lymphocytes # 3.2 (1.0-4.8) k/uL Monocytes # 0.5 (0-1.0) k/uL Eosinophils # 0.1 (0-0.7) k/uL Basophils # 0.1 (0-0.2) k/uL Sodium 138 (137-145) mmol/L Potassium 4.5 (3.5-5.1) mmol/L Chloride 109 H (98-107) mmol/L Carbon Dioxide 22 (22-30) mmol/L Anion Gap 7 mmol/L BUN 21 H (7-17) mg/dL Creatinine 0.71 (0.52-1.04) mg/dL Est GFR (CKD-EPI)AfAm >90 (>60 ml/min/1.73 sqM) Est GFR (CKD-EPI)NonAf >90 (>60 ml/min/1.73 sqM) Glucose 116 H (74-99) mg/dL Plasma Lactic Acid Simon 1.4 (0.7-2.0) mmol/L Calcium 9.0 (8.4-10.2) mg/dL Total Bilirubin 0.3 (0.2-1.3) mg/dL AST 27 (14-36) U/L ALT 23 (9-52) U/L Alkaline Phosphatase 62 (38-126) U/L Total Protein 7.2 (6.3-8.2) g/dL Albumin 3.6 (3.5-5.0) g/dL Group A Strep Rapid (Negative) 06/02/18 Range/Units 17:10 WBC (3.8-10.6) k/uL RBC (3.80-5.40) m/uL Hgb (11.4-16.0) gm/dL Hct (34.0-46.0) % MCV (80.0-100.0) fL MCH (25.0-35.0) pg MCHC (31.0-37.0) g/dL RDW (11.5-15.5) % Plt Count (150-450) k/uL Neutrophils % % Lymphocytes % % Monocytes % % Eosinophils % % Basophils % % Neutrophils # (1.3-7.7) k/uL Lymphocytes # (1.0-4.8) k/uL Monocytes # (0-1.0) k/uL Eosinophils # (0-0.7) k/uL Basophils # (0-0.2) k/uL Sodium (137-145) mmol/L Potassium (3.5-5.1) mmol/L Chloride (98-107) mmol/L Carbon Dioxide (22-30) mmol/L Anion Gap mmol/L BUN (7-17) mg/dL Creatinine (0.52-1.04) mg/dL Est GFR (CKD-EPI)AfAm (>60 ml/min/1.73 sqM) Est GFR (CKD-EPI)NonAf (>60 ml/min/1.73 sqM) Glucose (74-99) mg/dL Plasma Lactic Acid Simon (0.7-2.0) mmol/L Calcium (8.4-10.2) mg/dL Total Bilirubin (0.2-1.3) mg/dL AST (14-36) U/L ALT (9-52) U/L Alkaline Phosphatase (38-126) U/L Total Protein (6.3-8.2) g/dL Albumin (3.5-5.0) g/dL Group A Strep Rapid Negative (Negative) Disposition Clinical Impression: Cough Disposition: HOME SELF-CARE Condition: Good Instructions: Acute Bronchitis (ED) Additional Instructions: Please take antibiotic as directed. Please follow-up with primary care in 1-2 days. Please return to the emergency department if you have any worsening symptoms Prescriptions: Amoxicillin 875 mg PO Q12HR #20 tablet Is patient prescribed a controlled substance at d/c from ED?: No Referrals: Brooke Martin MD [Primary Care Provider] - 1-2 days Time of Disposition: 18:37
--- NOTE | 2018-06-02 16:59 | XR ---
EXAMINATION TYPE: XR chest 2V DATE OF EXAM: 06/02/2018 COMPARISON: 04/14/2018 HISTORY: Productive cough TECHNIQUE: Frontal and lateral views of the chest are obtained. FINDINGS: Heart and mediastinum are normal. Lungs are clear. Diaphragm is normal. Bony thorax is int act. IMPRESSION: Normal chest
[2018-06-02] MEDS ORDERED: SODIUM CHLORIDE 0.9% 1,000 ML IV STA (17:24)
[2018-06-02 17:25] LABS: Basophils # (A) 0.1 k/uL (0-0.2); Basophils % (A) 1 %; Eosinophils # (A) 0.1 k/uL (0-0.7); Eosinophils % (A) 1 %; HCT 40.7 % (34.0-46.0); HGB 13.8 gm/dL (11.4-16.0); Lymphocytes # (A) 3.2 k/uL (1.0-4.8); Lymphocytes % (A) 39 %; MCH 32.3 pg (25.0-35.0); MCHC 33.9 g/dL (31.0-37.0); MCV 95.4 fL (80.0-100.0); Mean Platelet Volume 6.5; Monocytes # (A) 0.5 k/uL (0-1.0); Monocytes % (A) 6 %; Neutrophils # (A) 4.1 k/uL (1.3-7.7); Neutrophils % (A) 50 %; Platelet Count 269 k/uL (150-450); RBC 4.26 m/uL (3.80-5.40); RDW 13.1 % (11.5-15.5); WBC 8.3 k/uL (3.8-10.6)
[2018-06-02 17:41] LABS: ALT 23 U/L (9-52); AST 27 U/L (14-36); Albumin 3.6 g/dL (3.5-5.0); Alkaline Phosphatase 62 U/L (38-126); Anion Gap 7 mmol/L; Blood Urea Nitrogen 21 mg/dL (7-17); Carbon Dioxide 22 mmol/L (22-30); Chloride 109 mmol/L (98-107); Glucose 116 mg/dL (74-99); Potassium 4.5 mmol/L (3.5-5.1); Sodium 138 mmol/L (137-145); Total Bilirubin 0.3 mg/dL (0.2-1.3); Total Protein 7.2 g/dL (6.3-8.2)
[2018-06-02 18:06] VITALS: BP 105/68; PULSE 111; TEMP 96.9
== END 2018-06-02 18:43 | disposition home or self-care (01) ==
LOC: EC 16:23
DX: R05 Cough (principal); R06.02 Shortness of breath; J45.909 Unspecified asthma, uncomplicated; I25.2 Old myocardial infarction; F90.9 Attention-deficit hyperactivity disorder, unspecified type; F41.9 Anxiety disorder, unspecified; K21.9 Gastro-esophageal reflux disease without esophagitis; F43.10 Post-traumatic stress disorder, unspecified; F31.9 Bipolar disorder, unspecified; Z87.891 Personal history of nicotine dependence; Z79.899 Other long term (current) drug therapy; Z88.5 Allergy status to narcotic agent; Z88.1 Allergy status to other antibiotic agents; Z88.8 Allergy status to other drugs, medicaments and biological substances; Z91.012 Allergy to eggs; Z88.2 Allergy status to sulfonamides; Z86.69 Personal history of other diseases of the nervous system and sense organs
CPT/HCPCS: 36415; 71046; 80053; 83605; 85025; 87081; 87430; 96360; 99285

== ENCOUNTER 2018-06-09 14:37 | Emergency (ER) | payer OTHER ==
[2018-06-09] MEDS ORDERED: KETOROLAC 30 MG/ML 1 ML VIAL IM STA (15:11)
[2018-06-09 15:27] LABS: Basophils % (A) 0 %; Eosinophils # (A) 0.2 k/uL (0-0.7); Eosinophils % (A) 2 %; HCT 39.7 % (34.0-46.0); HGB 13.1 gm/dL (11.4-16.0); Lymphocytes # (A) 2.7 k/uL (1.0-4.8); Lymphocytes % (A) 29 %; MCH 31.3 pg (25.0-35.0); Mean Platelet Volume 6.5; Monocytes # (A) 0.7 k/uL (0-1.0); Monocytes % (A) 8 %; Neutrophils # (A) 5.3 k/uL (1.3-7.7); Neutrophils % (A) 58 %; Platelet Count 265 k/uL (150-450); RBC 4.18 m/uL (3.80-5.40); WBC 9.2 k/uL (3.8-10.6)
[2018-06-09] MEDS ORDERED: KETOROLAC 30 MG/ML 1 ML VIAL IVP STA (15:30)
[2018-06-09 15:36] LABS: ALT 27 U/L (9-52); AST 21 U/L (14-36); Albumin 3.3 g/dL (3.5-5.0); Alkaline Phosphatase 63 U/L (38-126); Anion Gap 8 mmol/L; Blood Urea Nitrogen 13 mg/dL (7-17); Calcium 8.6 mg/dL (8.4-10.2); Carbon Dioxide 22 mmol/L (22-30); Chloride 109 mmol/L (98-107); Glucose 98 mg/dL (74-99); Sodium 139 mmol/L (137-145); Total Bilirubin 0.2 mg/dL (0.2-1.3); Total Protein 6.6 g/dL (6.3-8.2)
--- NOTE | 2018-06-09 15:38 | XR ---
EXAMINATION TYPE: XR chest 2V DATE OF EXAM: 06/09/2018 COMPARISON: 06/02/2018 HISTORY: Chest pain TECHNIQUE: Frontal and lateral views of the chest are obtained. FINDINGS: There is no focal air space opacity. No evidence for pneumothorax. No pleural effusion. The cardiac silhouette size is within normal limits. The osseous structures are grossly intact. IMPRESSION: 1. No acute cardiopulmonary process.
[2018-06-09 15:52] LABS: Creatine Kinase 97 U/L (30-135)
[2018-06-09 15:55] LABS: Partial Thromboplastin Time 22.5 sec (22.0-30.0); Prothrombin Time 9.8 sec (9.0-12.0)
[2018-06-09 16:05] LABS: Creatine Kinase MB 1.1 ng/mL (0.0-2.4); Troponin I <0.012 ng/mL (0.000-0.034)
--- NOTE | 2018-06-09 17:45 | ED ---
General Adult HPI - General Chief complaint: Chest Pain Stated complaint: Chest PAin Time Seen by Provider: 06/09/18 14:47 Source: patient, EMS, RN notes reviewed Mode of arrival: EMS Limitations: no limitations - History of Present Illness Initial comments: 32-year-old female presents to the emergency department for a chief complaint of sharp anterior chest pain 2 hours. Patient states pain is better when she sits up and worse when she lays down. She describes the pain as a sharp stabbing pain. She denies cough. Patient denies any shortness of breath. Patient denies any radiating pain down the arms. Patient denies any weakness. Patient states she does have a past history of a myocardial infarction at [facility]. Patient states she called Dr. Bolton who told her to come to the emergency department and apparently said he was expecting a phone call from the ER. Patient had aspirin in route in the ambulance. Patient has no other complaints at this time including shortness of breath, abdominal pain, nausea or vomiting, headache, or visual changes. - Related Data Home Medications Medication Instructions Recorded Confirmed Atorvastatin [Lipitor] 10 mg PO DAILY 12/14/17 04/29/18 SUMAtriptan SUCCINATE [Imitrex] 100 mg PO DAILY PRN 12/14/17 04/29/18 Albuterol Inhaler [Ventolin Hfa 2 puff INHALATION RT-QID PRN 01/15/18 04/29/18 Inhaler] Acetaminophen Tab [Tylenol] 650 mg PO Q6HR PRN 02/11/18 04/29/18 Atomoxetine HCl [Strattera] 25 mg PO QAM 02/14/18 04/29/18 Omeprazole [PriLOSEC] 20 mg PO AC-BID 02/14/18 04/29/18 Ranitidine HCl [Zantac] 300 mg PO DAILY 02/14/18 04/29/18 ARIPiprazole [Abilify] 10 mg PO DAILY 03/20/18 04/29/18 Previous Rx's Medication Instructions Recorded Escitalopram [Lexapro] 10 mg PO DAILY #14 tab 11/23/17 Ondansetron Odt [Zofran Odt] 4 mg PO Q8HR PRN #10 tab 03/06/18 levETIRAcetam [Keppra] 500 mg PO Q12HR #30 tab 03/10/18 Ibuprofen 800 mg PO Q6HR PRN #20 tablet 03/26/18 Amoxicillin 875 mg PO Q12HR #20 tablet 06/02/18 Allergies Allergy/AdvReac Type Severity Reaction Status Date / Time azithromycin Allergy Rash/Hives Verified 06/02/18 16:30 divalproex sodium Allergy "had Verified 06/02/18 16:30 [From Depakote] seizure when coming off" hydrocodone Allergy Rash/Hives Verified 06/02/18 16:30 Quinolones Allergy Rash/Hives Verified 06/02/18 16:30 sulfamethoxazole Allergy Rash/Hives Verified 06/02/18 16:30 [From Bactrim] tramadol Allergy Rash/Hives Verified 06/02/18 16:30 trimethoprim [From Bactrim] Allergy Rash/Hives Verified 06/02/18 16:30 codeine AdvReac Vertigo Verified 06/02/18 16:30 diphenhydramine HCl AdvReac Rapid Verified 06/02/18 16:30 [From Benadryl] Heart Rate egg AdvReac Nausea & Verified 06/02/18 16:30 Vomiting Influenza Virus Vaccines AdvReac Nausea & Verified 06/02/18 16:30 Vomiting Review of Systems ROS Statement: Those systems with pertinent positive or pertinent negative responses have been documented in the HPI. ROS Other: All systems not noted in ROS Statement are negative. Past Medical History Past Medical History: Asthma, Chest Pain / Angina, GERD/Reflux, Myocardial Infarction ([place]), Seizure Disorder, Syncope Additional Past Medical History / Comment(s): migraines, last seizure 4 months ago [place] x 2, low blood pressures, irregular heart beat, tachycardia, Last Myocardial Infarction Date:: 10/2016 History of Any Multi-Drug Resistant Organisms: None Reported Past Surgical History: Cholecystectomy, Tubal Ligation Additional Past Surgical History / Comment(s): Tilt table test, wisdom teeth extraction. Past Anesthesia/Blood Transfusion Reactions: Previous Problems w/ Anesthesia Additional Past Anesthesia/Blood Transfusion Reaction / Comment(s): "I get anxious when I wake up when my fiance is not there" Past Psychological History: ADD/ADHD, Anxiety, Bipolar, Depression, PTSD Smoking Status: Former smoker Past Alcohol Use History: None Reported Past Drug Use History: Heroin - Past Family History Father Family Medical History: Cancer Additional Family Medical History / Comment(s): Father at age 61 from lung CA Mother Family Medical History: No Reported History, Seizure Disorder Additional Family Medical History / Comment(s): Mother is alive with history of bipolar/schitzophrenia Brother(s) Additional Family Medical History / Comment(s): She has one half brother that abuses cocaine and methamphetamines. She does not have any contact with him. Patient has 1 sister with no major medical problems. Patient does not have any children. General Exam Limitations: no limitations General appearance: alert, in no apparent distress Head exam: Present: atraumatic, normocephalic, normal inspection Eye exam: Present: normal appearance, PERRL, EOMI. Absent: scleral icterus, conjunctival injection, periorbital swelling, periorbital tenderness ENT exam: Present: normal exam, normal oropharynx, mucous membranes moist, TM's normal bilaterally, normal external ear exam Neck exam: Present: normal inspection, full ROM. Absent: tenderness, meningismus, lymphadenopathy Respiratory exam: Present: normal lung sounds bilaterally, chest wall tenderness (Mild left-sided chest wall tenderness). Absent: respiratory distress, wheezes, rales, rhonchi, stridor, accessory muscle use Cardiovascular Exam: Present: regular rate, normal rhythm, normal heart sounds. Absent: systolic murmur, diastolic murmur, rubs, gallop, clicks GI/Abdominal exam: Present: soft, normal bowel sounds. Absent: distended, tenderness, guarding, rebound, rigid Neurological exam: Present: alert, oriented X3, CN II-XII intact Psychiatric exam: Present: normal affect, normal mood Course Vital Signs 06/09/18 06/09/18 14:48 17:50 Temperature 98.0 F Pulse Rate 109 H 98 Respiratory 16 18 Rate Blood Pressure 102/69 105/74 O2 Sat by Pulse 98 100 Oximetry Medical Decision Making - Medical Decision Making 32-year-old female well known to the emergency department presents for left- sided sharp chest pain worsened when lying down and better when sitting up. Patient denies any abdominal pain or shortness of breath. Patient denies any radiating pain. Patient states she talked to Dr. Bolton who wanted a phone call from the emergency department. EKG does not show any evidence of ST elevation or depression and was viewed by myself and Dr. Corona. CBC and CMP unremarkable. Cardiac profile is negative. Troponin less than 0.[address] Corona did talk to Dr. Meadows who recommended a repeat troponin and discharge. Repeat troponin is less than 0.012. On reevaluation Toradol did alleviate patient's pain somewhat. She is feeling better. Patient is comfortable going home. Patient's pulse did decrease from 109 to 98. Patient generally has mild tachycardia when reviewing old records. She will follow up with primary care in 1-2 days and return if she has any worsening symptoms. - Lab Data Result diagrams: 06/09/18 15:04 06/09/18 15:04 Lab Results 06/09/18 06/09/18 06/09/18 Range/Units 15:04 15:04 15:04 WBC 9.2 (3.8-10.6) k/uL RBC 4.18 (3.80-5.40) m/uL Hgb 13.1 (11.4-16.0) gm/dL Hct 39.7 (34.0-46.0) % MCV 95.0 (80.0-100.0) fL MCH 31.3 (25.0-35.0) pg MCHC 33.0 (31.0-37.0) g/dL RDW 13.0 (11.5-15.5) % Plt Count 265 (150-450) k/uL Neutrophils % 58 % Lymphocytes % 29 % Monocytes % 8 % Eosinophils % 2 % Basophils % 0 % Neutrophils # 5.3 (1.3-7.7) k/uL Lymphocytes # 2.7 (1.0-4.8) k/uL Monocytes # 0.7 (0-1.0) k/uL Eosinophils # 0.2 (0-0.7) k/uL Basophils # 0.0 (0-0.2) k/uL PT (9.0-12.0) sec INR (<1.2) APTT (22.0-30.0) sec Sodium 139 (137-145) mmol/L Potassium 4.0 (3.5-5.1) mmol/L Chloride 109 H (98-107) mmol/L Carbon Dioxide 22 (22-30) mmol/L Anion Gap 8 mmol/L BUN 13 (7-17) mg/dL Creatinine 0.70 (0.52-1.04) mg/dL Est GFR (CKD-EPI)AfAm >90 (>60 ml/min/1.73 sqM) Est GFR (CKD-EPI)NonAf >90 (>60 ml/min/1.73 sqM) Glucose 98 (74-99) mg/dL Calcium 8.6 (8.4-10.2) mg/dL Magnesium 2.0 (1.6-2.3) mg/dL Total Bilirubin 0.2 (0.2-1.3) mg/dL AST 21 (14-36) U/L ALT 27 (9-52) U/L Alkaline Phosphatase 63 (38-126) U/L Total Creatine Kinase 97 (30-135) U/L CK-MB (CK-2) 1.1 (0.0-2.4) ng/mL CK-MB (CK-2) Rel Index 1.1 Troponin I <0.012 (0.000-0.034) ng/mL Total Protein 6.6 (6.3-8.2) g/dL Albumin 3.3 L (3.5-5.0) g/dL 06/09/18 06/09/18 Range/Units 15:04 16:47 WBC (3.8-10.6) k/uL RBC (3.80-5.40) m/uL Hgb (11.4-16.0) gm/dL Hct (34.0-46.0) % MCV (80.0-100.0) fL MCH (25.0-35.0) pg MCHC (31.0-37.0) g/dL RDW (11.5-15.5) % Plt Count (150-450) k/uL Neutrophils % % Lymphocytes % % Monocytes % % Eosinophils % % Basophils % % Neutrophils # (1.3-7.7) k/uL Lymphocytes # (1.0-4.8) k/uL Monocytes # (0-1.0) k/uL Eosinophils # (0-0.7) k/uL Basophils # (0-0.2) k/uL PT 9.8 (9.0-12.0) sec INR 1.0 (<1.2) APTT 22.5 (22.0-30.0) sec Sodium (137-145) mmol/L Potassium (3.5-5.1) mmol/L Chloride (98-107) mmol/L Carbon Dioxide (22-30) mmol/L Anion Gap mmol/L BUN (7-17) mg/dL Creatinine (0.52-1.04) mg/dL Est GFR (CKD-EPI)AfAm (>60 ml/min/1.73 sqM) Est GFR (CKD-EPI)NonAf (>60 ml/min/1.73 sqM) Glucose (74-99) mg/dL Calcium (8.4-10.2) mg/dL Magnesium (1.6-2.3) mg/dL Total Bilirubin (0.2-1.3) mg/dL AST (14-36) U/L ALT (9-52) U/L Alkaline Phosphatase (38-126) U/L Total Creatine Kinase (30-135) U/L CK-MB (CK-2) (0.0-2.4) ng/mL CK-MB (CK-2) Rel Index Troponin I <0.012 (0.000-0.034) ng/mL Total Protein (6.3-8.2) g/dL Albumin (3.5-5.0) g/dL Disposition Clinical Impression: Atypical chest pain Disposition: HOME SELF-CARE Condition: Good Instructions: Chest Pain (ED) Additional Instructions: Please take Motrin and Tylenol for pain. Please follow-up with primary care doctor in one to 2 days. Return if you have any worsening symptoms. Is patient prescribed a controlled substance at d/c from ED?: No Referrals: Brooke Martin MD [Primary Care Provider] - 1-2 days Time of Disposition: 17:45
[2018-06-09 17:51] VITALS: BP 105/74; PULSE 98; RESP 18; TEMP 98
== END 2018-06-09 17:59 | disposition home or self-care (01) ==
LOC: EC 14:37
DX: R07.89 Other chest pain (principal); J45.909 Unspecified asthma, uncomplicated; K21.9 Gastro-esophageal reflux disease without esophagitis; I25.2 Old myocardial infarction; F90.9 Attention-deficit hyperactivity disorder, unspecified type; F31.9 Bipolar disorder, unspecified; G43.909 Migraine, unspecified, not intractable, without status migrainosus; Z79.899 Other long term (current) drug therapy; Z88.1 Allergy status to other antibiotic agents; Z88.2 Allergy status to sulfonamides; Z88.8 Allergy status to other drugs, medicaments and biological substances; Z88.7 Allergy status to serum and vaccine; Z91.012 Allergy to eggs; Z87.891 Personal history of nicotine dependence
CPT/HCPCS: 36415; 93005; 80053; 82550; 82553; 83735; 84484; 85025; 85610; 85730; 71046; 99285; 96374; J1885

== ENCOUNTER 2018-07-05 13:21 | Emergency (ER) | payer OTHER ==
[2018-07-05 13:34] VITALS: BP 107/77; PULSE 102; RESP 18; TEMP 98.3
--- NOTE | 2018-07-05 14:05 | ED ---
General Adult HPI - General Chief complaint: Recheck/Abnormal Lab/Rx Stated complaint: accidental med ingestion Time Seen by Provider: 07/05/18 13:47 Source: patient, RN notes reviewed Mode of arrival: wheelchair Limitations: no limitations - History of Present Illness Initial comments: 33-year-old female presents emergency Department chief complaint of nausea. Patient states that she took her friend's Dilaudid because she had some back pain. Patient states she started feeling weird after taking it. Patient states that she has no chest pain shortness breath headache or dizziness at this time. Patient states she initially had all sorts his symptoms were most have resolved other than slight nausea. Patient states that she took a because she had some back pain from lifting objects. She denies any bowel bladder incontinence or retention. Patient offers no other complaints. - Related Data Home Medications Medication Instructions Recorded Confirmed Atorvastatin [Lipitor] 10 mg PO DAILY 12/14/17 07/05/18 SUMAtriptan SUCCINATE [Imitrex] 100 mg PO DAILY PRN 12/14/17 07/05/18 Albuterol Inhaler [Ventolin Hfa 2 puff INHALATION RT-QID PRN 01/15/18 07/05/18 Inhaler] Acetaminophen Tab [Tylenol] 650 mg PO Q6HR PRN 02/11/18 07/05/18 Atomoxetine HCl [Strattera] 25 mg PO QAM 02/14/18 07/05/18 Omeprazole [PriLOSEC] 20 mg PO AC-BID 02/14/18 07/05/18 Ranitidine HCl [Zantac] 300 mg PO DAILY 02/14/18 07/05/18 ARIPiprazole [Abilify] 10 mg PO DAILY 03/20/18 07/05/18 Previous Rx's Medication Instructions Recorded Escitalopram [Lexapro] 10 mg PO DAILY #14 tab 11/23/17 Ondansetron Odt [Zofran Odt] 4 mg PO Q8HR PRN #10 tab 03/06/18 levETIRAcetam [Keppra] 500 mg PO Q12HR #30 tab 03/10/18 Ibuprofen 800 mg PO Q6HR PRN #20 tablet 03/26/18 Amoxicillin 875 mg PO Q12HR #20 tablet 06/02/18 Allergies Allergy/AdvReac Type Severity Reaction Status Date / Time azithromycin Allergy Rash/Hives Verified 07/05/18 13:55 divalproex sodium Allergy "had Verified 07/05/18 13:55 [From Depakote] seizure when coming off" hydrocodone Allergy Rash/Hives Verified 07/05/18 13:55 Quinolones Allergy Rash/Hives Verified 07/05/18 13:55 sulfamethoxazole Allergy Rash/Hives Verified 07/05/18 13:55 [From Bactrim] tramadol Allergy Rash/Hives Verified 07/05/18 13:55 trimethoprim [From Bactrim] Allergy Rash/Hives Verified 07/05/18 13:55 codeine AdvReac Vertigo Verified 07/05/18 13:55 diphenhydramine HCl AdvReac Rapid Verified 07/05/18 13:55 [From Benadryl] Heart Rate egg AdvReac Nausea & Verified 07/05/18 13:55 Vomiting Influenza Virus Vaccines AdvReac Nausea & Verified 07/05/18 13:55 Vomiting Review of Systems ROS Statement: Those systems with pertinent positive or pertinent negative responses have been documented in the HPI. ROS Other: All systems not noted in ROS Statement are negative. Past Medical History Past Medical History: Asthma, Chest Pain / Angina, GERD/Reflux, Myocardial Infarction ([place]), Seizure Disorder, Syncope Additional Past Medical History / Comment(s): migraines, last seizure 4 months ago [place] x 2, low blood pressures, irregular heart beat, tachycardia, Last Myocardial Infarction Date:: 10/2016 History of Any Multi-Drug Resistant Organisms: None Reported Past Surgical History: Cholecystectomy, Tubal Ligation Additional Past Surgical History / Comment(s): Tilt table test, wisdom teeth extraction. Past Anesthesia/Blood Transfusion Reactions: Previous Problems w/ Anesthesia Additional Past Anesthesia/Blood Transfusion Reaction / Comment(s): "I get anxious when I wake up when my fiance is not there" Past Psychological History: ADD/ADHD, Anxiety, Bipolar, Depression, PTSD Smoking Status: Former smoker Past Alcohol Use History: None Reported Past Drug Use History: Heroin - Past Family History Father Family Medical History: Cancer Additional Family Medical History / Comment(s): Father at age 61 from lung [place] Mother Family Medical History: No Reported History, Seizure Disorder Additional Family Medical History / Comment(s): Mother is alive with history of bipolar/schitzophrenia Brother(s) Additional Family Medical History / Comment(s): She has one half brother that abuses cocaine and methamphetamines. She does not have any contact with him. Patient has 1 sister with no major medical problems. Patient does not have any children. General Exam Limitations: no limitations General appearance: alert, in no apparent distress Head exam: Present: atraumatic, normocephalic, normal inspection Eye exam: Present: normal appearance, PERRL, EOMI. Absent: scleral icterus, conjunctival injection, periorbital swelling Neck exam: Present: normal inspection, full ROM. Absent: tenderness, meningismus, lymphadenopathy Respiratory exam: Present: normal lung sounds bilaterally. Absent: respiratory distress, wheezes, rales, rhonchi, stridor Cardiovascular Exam: Present: regular rate, normal rhythm, normal heart sounds. Absent: systolic murmur, diastolic murmur, rubs, gallop, clicks GI/Abdominal exam: Present: soft, normal bowel sounds. Absent: distended, tenderness, guarding, rebound, rigid Back exam: Present: full ROM. Absent: tenderness, paraspinal tenderness, vertebral tenderness Neurological exam: Present: alert, oriented X3, CN II-XII intact Skin exam: Present: warm, dry, intact, normal color. Absent: rash Course Vital Signs 07/05/18 13:31 Temperature 98.3 F Pulse Rate 102 H Respiratory 18 Rate Blood Pressure 107/77 O2 Sat by Pulse 98 Oximetry Medical Decision Making - Medical Decision Making 33-year-old female presented after taking her friend's medication. Patient did by mouth Dilaudid 4 mg. Patient states that she felt off but has no specific complaints other than slight nausea at this time. Patient vitals are stable were reviewed. Patient will be discharged. Disposition Clinical Impression: Drug ingestion Disposition: HOME SELF-CARE Condition: Stable Instructions: Safe Use of Opioids (ED) Additional Instructions: Please return to the Emergency Department if symptoms worsen or any other concerns. Is patient prescribed a controlled substance at d/c from ED?: No Referrals: Brooke Martin MD [Primary Care Provider] - 1-2 days Time of Disposition: 14:05
[2018-07-05] MEDS ORDERED: IBUPROFEN 600 MG STARTER PACK 4 TAB BTL PO STA (14:22)
== END 2018-07-05 14:26 | disposition home or self-care (01) ==
LOC: EC 13:21
DX: R11.0 Nausea (principal); T40.2X5A Adverse effect of other opioids, initial encounter; J45.909 Unspecified asthma, uncomplicated; K21.9 Gastro-esophageal reflux disease without esophagitis; F31.9 Bipolar disorder, unspecified; F90.9 Attention-deficit hyperactivity disorder, unspecified type; Z87.891 Personal history of nicotine dependence; Z88.1 Allergy status to other antibiotic agents; Z88.2 Allergy status to sulfonamides; Z88.5 Allergy status to narcotic agent; Z88.7 Allergy status to serum and vaccine; Z88.8 Allergy status to other drugs, medicaments and biological substances; Z91.012 Allergy to eggs; Z79.899 Other long term (current) drug therapy
CPT/HCPCS: 99283

== ENCOUNTER 2018-07-10 14:28 | Emergency (ER) | payer OTHER ==
[2018-07-10 14:33] VITALS: BP 102/64; PULSE 99; RESP 20; TEMP 97.7
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
--- NOTE | 2018-07-10 15:12 | XR ---
EXAMINATION TYPE: XR hand complete RT DATE OF EXAM: 07/10/2018 COMPARISON: NONE HISTORY: Pain TECHNIQUE: Three views are submitted. FINDINGS: The osseous structures are intact. The joint spaces are preserved and there is no acute fracture or dislocation. IMPRESSION: 1. No definite acute fracture or dislocation if symptoms persist, follow-up study in 7 to 10 days wo uld be suggested
--- NOTE | 2018-07-10 15:16 | XR ---
EXAMINATION TYPE: XR wrist complete RT DATE OF EXAM: 07/10/2018 COMPARISON: NONE HISTORY: 32-year-old female with pain after twisting injury yesterday TECHNIQUE: 4 views FINDINGS: There is prominent negative ulnar variance. The radiocarpal and distal radial ulnar joint as well as the midcarpal compartment appear intact. No acute fracture or dislocation. IMPRESSION: Prominent negative ulnar variance. The lateral distal tip of the ulna prominently abuts the sigmoid n otch of the radius. This can be a source of ulnar impingement. No acute osseous abnormality seen.
== END 2018-07-10 15:30 | disposition home or self-care (01) ==
LOC: EC 14:28
DX: S63.501A Unspecified sprain of right wrist, initial encounter (principal); J45.909 Unspecified asthma, uncomplicated; K21.9 Gastro-esophageal reflux disease without esophagitis; I25.2 Old myocardial infarction; G40.909 Epilepsy, unspecified, not intractable, without status epilepticus; F31.9 Bipolar disorder, unspecified; F90.9 Attention-deficit hyperactivity disorder, unspecified type; F43.10 Post-traumatic stress disorder, unspecified; Z87.891 Personal history of nicotine dependence; Z79.899 Other long term (current) drug therapy; Z88.2 Allergy status to sulfonamides; Z88.5 Allergy status to narcotic agent; Z88.7 Allergy status to serum and vaccine; Z88.1 Allergy status to other antibiotic agents; Z91.012 Allergy to eggs; Z88.8 Allergy status to other drugs, medicaments and biological substances; X50.1XXA Overexertion from prolonged static or awkward postures, initial encounter; Y92.811 Bus as the place of occurrence of the external cause
CPT/HCPCS: 99284

== ENCOUNTER 2018-08-05 16:09 | Emergency (ER) | payer OTHER ==
[2018-08-05 16:20] VITALS: RESP 18; TEMP 97.4
--- NOTE | 2018-08-05 16:35 | ED ---
General Adult HPI - General Chief complaint: Extremity Injury, Lower Stated complaint: knee injury Time Seen by Provider: 08/05/18 16:31 Source: patient, RN notes reviewed Mode of arrival: wheelchair Limitations: no limitations - History of Present Illness Initial comments: Patient 34-year-old female presented to the emergency room today with a chief complaint of injury to the left knee. She does admit that she slipped on the ice this morning and landed on the left knee. She states there was no head injury or loss of consciousness. Doesn't pain is worse with flexion and extension at the left knee. Denies any other injuries or complaints at this time. Patient denies any recent fever, chills, shortness of breath, chest pain, back pain, abdominal pain, nausea or vomiting, numbness or tingling, headaches or visual changes, or any other complaints. - Related Data Home Medications Medication Instructions Recorded Confirmed Atorvastatin [Lipitor] 10 mg PO DAILY 12/14/17 08/05/18 Albuterol Inhaler [Ventolin Hfa 2 puff INHALATION RT-QID PRN 01/15/18 08/05/18 Inhaler] Omeprazole [PriLOSEC] 20 mg PO AC-BID 02/14/18 08/05/18 Ranitidine HCl [Zantac] 300 mg PO DAILY 02/14/18 08/05/18 ARIPiprazole [Abilify] 10 mg PO DAILY 03/20/18 08/05/18 Topiramate [Topamax] 50 mg PO BID 08/05/18 08/05/18 Previous Rx's Medication Instructions Recorded Ondansetron Odt [Zofran Odt] 4 mg PO Q8HR PRN #10 tab 03/06/18 Ibuprofen 800 mg PO Q6HR PRN #20 tablet 03/26/18 Allergies Allergy/AdvReac Type Severity Reaction Status Date / Time azithromycin Allergy Rash/Hives Verified 08/05/18 16:20 divalproex sodium Allergy "had Verified 08/05/18 16:20 [From Depakote] seizure when coming off" hydrocodone Allergy Rash/Hives Verified 08/05/18 16:20 Quinolones Allergy Rash/Hives Verified 08/05/18 16:20 sulfamethoxazole Allergy Rash/Hives Verified 08/05/18 16:20 [From Bactrim] tramadol Allergy Rash/Hives Verified 08/05/18 16:20 trimethoprim [From Bactrim] Allergy Rash/Hives Verified 08/05/18 16:20 codeine AdvReac Vertigo Verified 08/05/18 16:20 diphenhydramine HCl AdvReac Rapid Verified 08/05/18 16:20 [From Benadryl] Heart Rate egg AdvReac Nausea & Verified 08/05/18 16:20 Vomiting Influenza Virus Vaccines AdvReac Nausea & Verified 08/05/18 16:20 Vomiting Review of Systems ROS Statement: Those systems with pertinent positive or pertinent negative responses have been documented in the HPI. ROS Other: All systems not noted in ROS Statement are negative. Past Medical History Past Medical History: Asthma, Chest Pain / Angina, GERD/Reflux, Myocardial Infarction ([place]), Seizure Disorder, Syncope Additional Past Medical History / Comment(s): migraines, last seizure 4 months ago [place] x 2, low blood pressures, irregular heart beat, tachycardia, Last Myocardial Infarction Date:: 10/2016 History of Any Multi-Drug Resistant Organisms: None Reported Past Surgical History: Cholecystectomy, Tubal Ligation Additional Past Surgical History / Comment(s): Tilt table test, wisdom teeth extraction. Past Anesthesia/Blood Transfusion Reactions: Previous Problems w/ Anesthesia Additional Past Anesthesia/Blood Transfusion Reaction / Comment(s): "I get anxious when I wake up when my fiance is not there" Past Psychological History: ADD/ADHD, Anxiety, Bipolar, Depression, PTSD Smoking Status: Former smoker Past Alcohol Use History: None Reported Past Drug Use History: Heroin - Past Family History Father Family Medical History: Cancer Additional Family Medical History / Comment(s): Father at age 61 from lung [place] Mother Family Medical History: No Reported History, Seizure Disorder Additional Family Medical History / Comment(s): Mother is alive with history of bipolar/schitzophrenia Brother(s) Additional Family Medical History / Comment(s): She has one half brother that abuses cocaine and methamphetamines. She does not have any contact with him. Patient has 1 sister with no major medical problems. Patient does not have any children. General Exam - General Exam Comments Initial Comments: General: The patient is awake and alert, in no distress, and does not appear acutely ill. Neck: The neck is supple, there is no tenderness or JVD. Musculoskeletal: Patient does have tenderness to the anterior and posterior aspects of the left knee. Shows good range of motion both flexion and extension. Her sensations are intact. Pedal pulse 2+. Neurological: A&O x 3. CN II-XII intact, There are no obvious motor or sensory deficits. Coordination appears grossly intact. Speech is normal. Skin: Skin is warm and dry and no rashes or lesions are noted. Psychiatric: Normal mood and affect. Limitations: no limitations Course Vital Signs 08/05/18 16:17 Temperature 97.4 F L Pulse Rate 90 Respiratory 18 Rate Blood Pressure 102/71 O2 Sat by Pulse 100 Oximetry Medical Decision Making - Medical Decision Making Patient's x-ray negative for any acute fracture dislocation. Results were discussed with patient. Patient will be discharged home. She is advised to ice elevate the affected area and follow-up in 7-10 days if symptoms persist for further evaluation. Disposition Clinical Impression: Knee strain Disposition: HOME SELF-CARE Condition: Good Instructions: Knee Sprain (ED) Additional Instructions: Please continue to ice elevate the affected area at least 4 times a day for 20 minutes at a time. Please use Tylenol/ibuprofen for pain. Please follow-up in 7-10 days for repeat x-rays if symptoms persist. Please return to emergency room for any other concerns. Is patient prescribed a controlled substance at d/c from ED?: No Referrals: Cecile Wright MD [Primary Care Provider] - 1-2 days Time of Disposition: 17:10
--- NOTE | 2018-08-05 17:29 | XR ---
PROCEDURE: XR knee complete LT 3V DATE AND TIME: 08/05/2018 5:01 PM CLINICAL INDICATION: [facility] Pain TECHNIQUE: Department protocol. 3V COMPARISON: April 02, 2018 FINDINGS: There is no fracture or malalignment. The soft tissues are unremarkable. IMPRESSION: NO ACUTE PROCESS.
[2018-08-05 17:46] VITALS: BP 107/69; PULSE 95
== END 2018-08-05 17:46 | disposition home or self-care (01) ==
LOC: EC 16:09
DX: S86.912A Strain of unspecified muscle(s) and tendon(s) at lower leg level, left leg, initial encounter (principal); K21.9 Gastro-esophageal reflux disease without esophagitis; J45.909 Unspecified asthma, uncomplicated; I25.2 Old myocardial infarction; G40.909 Epilepsy, unspecified, not intractable, without status epilepticus; F31.9 Bipolar disorder, unspecified; F90.9 Attention-deficit hyperactivity disorder, unspecified type; F41.9 Anxiety disorder, unspecified; F43.10 Post-traumatic stress disorder, unspecified; Z87.891 Personal history of nicotine dependence; Z79.899 Other long term (current) drug therapy; Z88.1 Allergy status to other antibiotic agents; Z88.2 Allergy status to sulfonamides; Z88.5 Allergy status to narcotic agent; Z88.7 Allergy status to serum and vaccine; Z91.012 Allergy to eggs; Z88.8 Allergy status to other drugs, medicaments and biological substances; W00.0XXA Fall on same level due to ice and snow, initial encounter
CPT/HCPCS: 73562; 99283; L1830 ×2

== ENCOUNTER 2018-09-13 10:23 | Emergency (ER) | payer OTHER ==
[2018-09-13 10:46] VITALS: BP 97/65; PULSE 81; RESP 20; TEMP 99.5
--- NOTE | 2018-09-13 11:08 | ED ---
General Adult HPI - General Chief complaint: Extremity Problem,Nontraumatic Stated complaint: lump on left wrist Source: patient, RN notes reviewed Mode of arrival: ambulatory Limitations: no limitations - History of Present Illness Initial comments: This a 33-year-old female presents emergency Department complaining that where she recently had an IV the area is tender and very sore and a little bit swollen. Patient denies any red streaking from that area. Patient denies any fever chills per patient denies any other issues. Patient denies any trauma to the area. Patient denies any decreased range of motion just some soreness when she bends her wrist. Patient is complaining about the area on her left lateral forearm just proximal to the wrist - Related Data Home Medications Medication Instructions Recorded Confirmed Atorvastatin [Lipitor] 10 mg PO DAILY 12/14/17 08/05/18 Albuterol Inhaler [Ventolin Hfa 2 puff INHALATION RT-QID PRN 01/15/18 08/05/18 Inhaler] Omeprazole [PriLOSEC] 20 mg PO AC-BID 02/14/18 08/05/18 Ranitidine HCl [Zantac] 300 mg PO DAILY 02/14/18 08/05/18 ARIPiprazole [Abilify] 10 mg PO DAILY 03/20/18 08/05/18 Topiramate [Topamax] 50 mg PO BID 08/05/18 08/05/18 Previous Rx's Medication Instructions Recorded Ondansetron Odt [Zofran Odt] 4 mg PO Q8HR PRN #10 tab 03/06/18 Ibuprofen 800 mg PO Q6HR PRN #20 tablet 03/26/18 Ibuprofen [Motrin] 600 mg PO Q6HR PRN #40 day 08/05/18 Cephalexin [Keflex] 500 mg PO Q6HR #28 cap 09/13/18 Ibuprofen [Motrin] 600 mg PO Q6HR PRN #20 tab 09/13/18 Allergies Allergy/AdvReac Type Severity Reaction Status Date / Time azithromycin Allergy Rash/Hives Verified 09/13/18 10:46 divalproex sodium Allergy "had Verified 09/13/18 10:46 [From Depakote] seizure when coming off" hydrocodone Allergy Rash/Hives Verified 09/13/18 10:46 Quinolones Allergy Rash/Hives Verified 09/13/18 10:46 sulfamethoxazole Allergy Rash/Hives Verified 09/13/18 10:46 [From Bactrim] tramadol Allergy Rash/Hives Verified 09/13/18 10:46 trimethoprim [From Bactrim] Allergy Rash/Hives Verified 09/13/18 10:46 codeine AdvReac Vertigo Verified 09/13/18 10:46 diphenhydramine HCl AdvReac Rapid Verified 09/13/18 10:46 [From Benadryl] Heart Rate egg AdvReac Nausea & Verified 09/13/18 10:46 Vomiting Influenza Virus Vaccines AdvReac Nausea & Verified 09/13/18 10:46 Vomiting Review of Systems ROS Statement: Those systems with pertinent positive or pertinent negative responses have been documented in the HPI. ROS Other: All systems not noted in ROS Statement are negative. Past Medical History Past Medical History: Asthma, Chest Pain / Angina, GERD/Reflux, Myocardial Infarction ([place]), Seizure Disorder, Syncope Additional Past Medical History / Comment(s): migraines, last seizure 4 months ago [place] x 2, low blood pressures, irregular heart beat, tachycardia, Last Myocardial Infarction Date:: 10/2016 History of Any Multi-Drug Resistant Organisms: None Reported Past Surgical History: Cholecystectomy, Tubal Ligation Additional Past Surgical History / Comment(s): Tilt table test, wisdom teeth extraction. Past Anesthesia/Blood Transfusion Reactions: Previous Problems w/ Anesthesia Additional Past Anesthesia/Blood Transfusion Reaction / Comment(s): "I get anxious when I wake up when my fiance is not there" Past Psychological History: ADD/ADHD, Anxiety, Bipolar, Depression, PTSD Smoking Status: Former smoker Past Alcohol Use History: None Reported Past Drug Use History: Heroin - Past Family History Father Family Medical History: Cancer Additional Family Medical History / Comment(s): Father at age 61 from lung [place] Mother Family Medical History: No Reported History, Seizure Disorder Additional Family Medical History / Comment(s): Mother is alive with history of bipolar/schitzophrenia Brother(s) Additional Family Medical History / Comment(s): She has one half brother that abuses cocaine and methamphetamines. She does not have any contact with him. Patient has 1 sister with no major medical problems. Patient does not have any children. General Exam - General Exam Comments Initial Comments: GENERAL Patient is well-developed and well-nourished. Patient is in mild distress. EYES Patient's pupils are equal and round. Extraocular motion is intact SKIN Unremarkable NEURO The patient is alert and oriented 3 PYSCH Patient has normal interpersonal interactions. MUSCULOSKELETAL Patient has a small area of swelling and tenderness on the distal lateral left forearm. Limitations: no limitations Course Vital Signs 09/13/18 10:44 Temperature 99.5 F Pulse Rate 81 Respiratory 20 Rate Blood Pressure 97/65 O2 Sat by Pulse 98 Oximetry Disposition Clinical Impression: Thrombophlebitis arm Disposition: HOME SELF-CARE Condition: Good Instructions: Superficial Thrombophlebitis (ED) Prescriptions: Cephalexin [Keflex] 500 mg PO Q6HR #28 cap Ibuprofen [Motrin] 600 mg PO Q6HR PRN #20 tab PRN Reason: For pain Is patient prescribed a controlled substance at d/c from ED?: No Referrals: Cecile Wright MD [Primary Care Provider] - 1-2 days Time of Disposition: 11:07
== END 2018-09-13 11:28 | disposition home or self-care (01) ==
LOC: EC 10:23
DX: I80.8 Phlebitis and thrombophlebitis of other sites (principal); J45.909 Unspecified asthma, uncomplicated; K21.9 Gastro-esophageal reflux disease without esophagitis; I25.2 Old myocardial infarction; G40.909 Epilepsy, unspecified, not intractable, without status epilepticus; F41.9 Anxiety disorder, unspecified; Z79.899 Other long term (current) drug therapy; Z88.1 Allergy status to other antibiotic agents; Z88.8 Allergy status to other drugs, medicaments and biological substances; Z88.5 Allergy status to narcotic agent; Z88.2 Allergy status to sulfonamides; Z91.012 Allergy to eggs; Z88.7 Allergy status to serum and vaccine; Z87.891 Personal history of nicotine dependence
CPT/HCPCS: 99282

== ENCOUNTER 2018-09-29 20:31 | Emergency (ER) | payer OTHER ==
[2018-09-29 21:14] LABS: Appearance,Urine Cloudy (Clear); Bilirubin,Urine Negative (Negative); Blood,Urine Small (Negative); Color,Urine Yellow; Glucose,Urine (UA) Negative (Negative); Ketones,Urine Negative (Negative); Leukocyte Esterase,Urine Small (Negative); Mucus,Urine Rare /hpf; Nitrite,Urine Negative (Negative); PH, Urine 6.5 (5.0-8.0); Protein,Urine Trace (Negative); RBC,Urine 2 /hpf (0-5); Specific Gravity,Urine 1.018 (1.001-1.035); Squamous Epithelial Cell,Urine 34 /hpf (0-4); Urobilinogen,Urine <2.0 mg/dL (<2.0); WBC,Urine 2 /hpf (0-5)
[2018-09-29] MEDS ORDERED: ONDANSETRON 4 MG ODT STARTER PACK 2 TAB BTL PO STA (23:18)
--- NOTE | 2018-09-30 00:17 | ED ---
Nausea/Vomiting/Diarrhea HPI - General Chief complaint: Nausea/Vomiting/Diarrhea Stated complaint: Vomiting Time Seen by Provider: 09/29/18 22:51 Source: patient Mode of arrival: ambulatory Limitations: no limitations - History of Present Illness Initial comments: 33-year-old female patient well known to our department for variety complaints presents to the emergency department today for evaluation of diarrhea. Patient is also reporting nausea with this but has had no vomiting. States that she did have several episodes of loose stools today that did appear to be black. States that she did see a small amount of bright red blood present. Patient denies any abdominal pain with this. Denies any hematuria, dysuria, urinary frequency, urinary urgency. Denies any chance of . States she has been chilled but has not had any documented temperatures. Denies taking any medication for her symptoms. Patient denies any recent rash, shortness breath, chest pain, back pain, numbness, tingling, dizziness, weakness, headache, visual changes, or any other complaints. - Related Data Home Medications Medication Instructions Recorded Confirmed Atorvastatin [Lipitor] 10 mg PO DAILY 12/14/17 09/29/18 Omeprazole [PriLOSEC] 20 mg PO AC-BID 02/14/18 09/29/18 Ranitidine HCl [Zantac] 300 mg PO DAILY 02/14/18 09/29/18 Atomoxetine HCl [Strattera] 25 mg PO DAILY 09/29/18 09/29/18 Metoprolol Tartrate [Lopressor] 12.5 mg PO BID 09/29/18 09/29/18 Topiramate [Topamax] 25 mg PO BID 09/29/18 09/29/18 levETIRAcetam [Keppra] 500 mg PO BID 09/29/18 09/29/18 Previous Rx's Medication Instructions Recorded Ondansetron Odt [Zofran Odt] 4 mg PO Q8HR PRN #10 tab 03/06/18 Ibuprofen 800 mg PO Q6HR PRN #20 tablet 03/26/18 Allergies Allergy/AdvReac Type Severity Reaction Status Date / Time azithromycin Allergy Rash/Hives Verified 09/29/18 23:43 divalproex sodium Allergy "had Verified 09/29/18 23:43 [From Depakote] seizure when coming off" hydrocodone Allergy Rash/Hives Verified 09/29/18 23:43 Quinolones Allergy Rash/Hives Verified 09/29/18 23:43 sulfamethoxazole Allergy Rash/Hives Verified 09/29/18 23:43 [From Bactrim] tramadol Allergy Rash/Hives Verified 09/29/18 23:43 trimethoprim [From Bactrim] Allergy Rash/Hives Verified 09/29/18 23:43 codeine AdvReac Vertigo Verified 09/29/18 23:43 diphenhydramine HCl AdvReac Rapid Verified 09/29/18 23:43 [From Benadryl] Heart Rate egg AdvReac Nausea & Verified 09/29/18 23:43 Vomiting Influenza Virus Vaccines AdvReac Nausea & Verified 09/29/18 23:43 Vomiting Review of Systems ROS Statement: Those systems with pertinent positive or pertinent negative responses have been documented in the HPI. ROS Other: All systems not noted in ROS Statement are negative. Past Medical History Past Medical History: Asthma, Chest Pain / Angina, GERD/Reflux, Myocardial Infarction ([place]), Seizure Disorder, Syncope Additional Past Medical History / Comment(s): migraines, last seizure 4 months ago [place] x 2, low blood pressures, irregular heart beat, tachycardia, Last Myocardial Infarction Date:: 10/2016 History of Any Multi-Drug Resistant Organisms: None Reported Past Surgical History: Cholecystectomy, Tubal Ligation Additional Past Surgical History / Comment(s): Tilt table test, wisdom teeth extraction. Past Anesthesia/Blood Transfusion Reactions: Previous Problems w/ Anesthesia Additional Past Anesthesia/Blood Transfusion Reaction / Comment(s): "I get anxious when I wake up when my fiance is not there" Past Psychological History: ADD/ADHD, Anxiety, Bipolar, Depression, PTSD Smoking Status: Former smoker Past Alcohol Use History: None Reported Past Drug Use History: Heroin - Past Family History Father Family Medical History: Cancer Additional Family Medical History / Comment(s): Father at age 61 from lung CA Mother Family Medical History: No Reported History, Seizure Disorder Additional Family Medical History / Comment(s): Mother is alive with history of bipolar/schitzophrenia Brother(s) Additional Family Medical History / Comment(s): She has one half brother that abuses cocaine and methamphetamines. She does not have any contact with him. Patient has 1 sister with no major medical problems. Patient does not have any children. General Exam Limitations: no limitations General appearance: alert, in no apparent distress, other (This is a well- developed, well-nourished adult female patient in no acute distress. Vital signs upon presentation are temperature 98.1F, pulse 100, respirations 18, blood pressure 91/61, pulse ox 97% on room air.) Eye exam: Present: normal appearance, PERRL, EOMI. Absent: scleral icterus, conjunctival injection, periorbital swelling ENT exam: Present: normal exam, normal oropharynx, mucous membranes moist Respiratory exam: Present: normal lung sounds bilaterally. Absent: respiratory distress, wheezes, rales, rhonchi, stridor Cardiovascular Exam: Present: regular rate, normal rhythm, normal heart sounds. Absent: systolic murmur, diastolic murmur, rubs, gallop, clicks GI/Abdominal exam: Present: soft, normal bowel sounds. Absent: distended, tenderness, guarding, rebound, rigid Rectal exam: Present: normal inspection. Absent: black stool, bloody stool, hemorrhoids Neurological exam: Present: alert, oriented X3, CN II-XII intact Psychiatric exam: Present: normal affect, normal mood Skin exam: Present: warm, dry, intact, normal color. Absent: rash Course Vital Signs 09/29/18 09/30/18 20:40 00:28 Temperature 98.1 F 98.8 F Pulse Rate 100 84 Respiratory 18 16 Rate Blood Pressure 91/61 90/59 O2 Sat by Pulse 97 98 Oximetry Medical Decision Making - Medical Decision Making 33-year-old female patient presents the emergency department today for evaluation of diarrhea and nausea. Physical examination is unremarkable. Abdomen is soft and nontender. Rectal exam is normal. Urinalysis is contaminated. Stool is negative for occult blood. Given physical exam findings , stable vitals, we'll discharge patient home at this time to follow-up for primary care physician. We did discuss possibility of a viral gastroenteritis. She'll be given Zofran to take home with her. She is instructed to follow-up with her primary care physician for recheck in 1-2 days. Return parameters were discussed in detail patient verbalizes understanding and agrees with this plan. - Lab Data Lab Results 09/29/18 09/29/18 Range/Units 20:44 23:50 Urine Color Yellow Urine Appearance Cloudy H (Clear) Urine pH 6.5 (5.0-8.0) Ur Specific [place] 1.018 (1.001-1.035) Urine Protein Trace H (Negative) Urine Glucose (UA) Negative (Negative) Urine Ketones Negative (Negative) Urine Blood Small H (Negative) Urine Nitrite Negative (Negative) Urine Bilirubin Negative (Negative) Urine Urobilinogen <2.0 (<2.0) mg/dL Ur Leukocyte Esterase Small H (Negative) Urine RBC 2 (0-5) /hpf Urine WBC 2 (0-5) /hpf Ur Squamous Epith Cells 34 H (0-4) /hpf Urine Mucus Rare H (None) /hpf Stool Occult Blood Negative (Negative) Disposition Clinical Impression: Diarrhea Disposition: HOME SELF-CARE Condition: Good Instructions: Acute Diarrhea (ED) Additional Instructions: Increase fluids. Follow up with your primary care physician for recheck in 1-2 days. Return immediately for any new, worsening, or concerning symptoms Is patient prescribed a controlled substance at d/c from ED?: No Referrals: Cecile Wright MD [Primary Care Provider] - 1-2 days Time of Disposition: 00:17
[2018-09-30 00:28] VITALS: BP 90/59; PULSE 84; RESP 16; TEMP 98.8
== END 2018-09-30 00:32 | disposition home or self-care (01) ==
LOC: EC 20:31
DX: R19.7 Diarrhea, unspecified (principal); R11.0 Nausea; I20.9 Angina pectoris, unspecified; K21.9 Gastro-esophageal reflux disease without esophagitis; I25.2 Old myocardial infarction; G40.909 Epilepsy, unspecified, not intractable, without status epilepticus; F90.9 Attention-deficit hyperactivity disorder, unspecified type; Z87.891 Personal history of nicotine dependence; Z90.49 Acquired absence of other specified parts of digestive tract; Z98.51 Tubal ligation status; Z79.899 Other long term (current) drug therapy; Z88.1 Allergy status to other antibiotic agents; Z88.2 Allergy status to sulfonamides; Z88.5 Allergy status to narcotic agent; Z88.7 Allergy status to serum and vaccine; Z88.8 Allergy status to other drugs, medicaments and biological substances; Z91.012 Allergy to eggs
CPT/HCPCS: 36415; 82272; 81001; 87086; 99284; S0119

== ENCOUNTER → 2018-10-01 | Outpatient (CLI) | payer OTHER ==
--- NOTE | 2018-10-01 12:43 | MR ---
MR brain without contrast HISTORY: Migraine headache without aura Multiplanar multisequence imaging obtained through the brain. Correlation to prior brain MRI dated 11/06/2011 There is no restricted diffusion. Abnormality along the insula at the level of the sylvian fissure on the right is stable compared to prior exam. There is no hemorrhage or hydrocephalus. Normal vascular flow voids are present. Cerebellopontine angles, corpus callosum, pituitary, cervical medullary junc tion are unchanged. The orbits show symmetric appearance. Brain signal is stable. IMPRESSION: Stable brain MRI. Findings may represent a remote cerebral vascular accident or trauma at the level of the insula on the right.
== END ==
LOC: RADMRIMAIN 08:39
PROVIDERS: ATTEND Psychiatry & Neurology Neurology
DX: G43.009 Migraine without aura, not intractable, without status migrainosus (principal)
CPT/HCPCS: 70551

== ENCOUNTER 2018-10-09 15:10 | Emergency (ER) | payer OTHER ==
[2018-10-09] MEDS ORDERED: SODIUM CHLORIDE 0.9% 1,000 ML IV STA (15:36)
[2018-10-09] MEDS ORDERED: levETIRAcetam 500 MG TAB PO STA (15:38)
--- NOTE | 2018-10-09 15:57 | ED ---
General Adult HPI - General Chief complaint: Seizure Stated complaint: seizures Time Seen by Provider: 10/09/18 15:20 Source: patient, RN notes reviewed Mode of arrival: ambulatory Limitations: no limitations - History of Present Illness Initial comments: 33-year-old female well known to this emergency department with a past medical history of [place], asthma, chest pain, seizures presents to the emergency department for a chief complaint of seizures. Patient has apparently had 5 seizures today. Patient is on Keppra and takes 1000 mg twice a day. Patient states she has been taking her medications. Patient called her neurologist Dr. Cavazos who recommended she come to the emergency department for evaluation. Patient has no other complaints at this time including shortness of breath, chest pain, abdominal pain, nausea or vomiting, headache, or visual changes. - Related Data Home Medications Medication Instructions Recorded Confirmed Atorvastatin [Lipitor] 10 mg PO DAILY 12/14/17 10/09/18 Omeprazole [PriLOSEC] 20 mg PO AC-BID 02/14/18 10/09/18 Ranitidine HCl [Zantac] 300 mg PO DAILY 02/14/18 10/09/18 Metoprolol Tartrate [Lopressor] 12.5 mg PO BID 09/29/18 10/09/18 Topiramate [Topamax] 25 mg PO BID 09/29/18 10/09/18 levETIRAcetam [Keppra] 500 mg PO BID 09/29/18 10/09/18 ARIPiprazole [Abilify] 30 mg PO DAILY 10/09/18 10/09/18 Atomoxetine HCl 40 mg PO DAILY 10/09/18 10/09/18 Escitalopram [Lexapro] 20 mg PO DAILY 10/09/18 10/09/18 guanFACINE HCL [Intuniv] 2 mg PO DAILY 10/09/18 10/09/18 Previous Rx's Medication Instructions Recorded Ondansetron Odt [Zofran Odt] 4 mg PO Q8HR PRN #10 tab 03/06/18 Allergies Allergy/AdvReac Type Severity Reaction Status Date / Time azithromycin Allergy Rash/Hives Verified 10/09/18 16:08 divalproex sodium Allergy "had Verified 10/09/18 16:08 [From Depakote] seizure when coming off" hydrocodone Allergy Rash/Hives Verified 10/09/18 16:08 Quinolones Allergy Rash/Hives Verified 10/09/18 16:08 sulfamethoxazole Allergy Rash/Hives Verified 10/09/18 16:08 [From Bactrim] tramadol Allergy Rash/Hives Verified 10/09/18 16:08 trimethoprim [From Bactrim] Allergy Rash/Hives Verified 10/09/18 16:08 codeine AdvReac Vertigo Verified 10/09/18 16:08 diphenhydramine HCl AdvReac Rapid Verified 10/09/18 16:08 [From Benadryl] Heart Rate egg AdvReac Nausea & Verified 10/09/18 16:08 Vomiting Influenza Virus Vaccines AdvReac Nausea & Verified 10/09/18 16:08 Vomiting Review of Systems ROS Statement: Those systems with pertinent positive or pertinent negative responses have been documented in the HPI. ROS Other: All systems not noted in ROS Statement are negative. Past Medical History Past Medical History: Asthma, Chest Pain / Angina, GERD/Reflux, Myocardial Infarction ([place]), Seizure Disorder, Syncope Additional Past Medical History / Comment(s): migraines, last seizure 4 months ago [place] x 2, low blood pressures, irregular heart beat, tachycardia, Last Myocardial Infarction Date:: 10/2016 History of Any Multi-Drug Resistant Organisms: None Reported Past Surgical History: Cholecystectomy, Tubal Ligation Additional Past Surgical History / Comment(s): Tilt table test, wisdom teeth extraction. Past Anesthesia/Blood Transfusion Reactions: Previous Problems w/ Anesthesia Additional Past Anesthesia/Blood Transfusion Reaction / Comment(s): "I get anxious when I wake up when my fiance is not there" Past Psychological History: ADD/ADHD, Anxiety, Bipolar, Depression, PTSD Smoking Status: Former smoker Past Alcohol Use History: None Reported Past Drug Use History: None Reported, Heroin - Past Family History Father Family Medical History: Cancer Additional Family Medical History / Comment(s): Father at age 61 from lung CA Mother Family Medical History: No Reported History, Seizure Disorder Additional Family Medical History / Comment(s): Mother is alive with history of bipolar/schitzophrenia Brother(s) Additional Family Medical History / Comment(s): She has one half brother that abuses cocaine and methamphetamines. She does not have any contact with him. Patient has 1 sister with no major medical problems. Patient does not have any children. General Exam Limitations: no limitations General appearance: alert (Sitting up in bed, well-appearing, alert responsive and interactive.), in no apparent distress Head exam: Present: atraumatic, normocephalic, normal inspection Eye exam: Present: normal appearance, PERRL, EOMI. Absent: scleral icterus, conjunctival injection, periorbital swelling ENT exam: Present: normal exam, normal oropharynx, mucous membranes moist Neck exam: Present: normal inspection, full ROM. Absent: tenderness, meningismus, lymphadenopathy Respiratory exam: Present: normal lung sounds bilaterally. Absent: respiratory distress, wheezes, rales, rhonchi, stridor Cardiovascular Exam: Present: regular rate, normal rhythm, normal heart sounds. Absent: systolic murmur, diastolic murmur, rubs, gallop, clicks GI/Abdominal exam: Present: soft, normal bowel sounds. Absent: distended, tenderness, guarding, rebound, rigid Neurological exam: Present: alert, oriented X3, CN II-XII intact Psychiatric exam: Present: normal affect, normal mood Skin exam: Present: warm, dry, intact, normal color. Absent: rash Course Vital Signs 10/09/18 15:12 Temperature 98 F Pulse Rate 93 Respiratory 18 Rate Blood Pressure 103/71 O2 Sat by Pulse 100 Oximetry Medical Decision Making - Medical Decision Making 33-year-old female well known to this emergency department presents for a chief complaint of seizures. Apparently patient had 5 seizures earlier today. Patient is on 1000 mg of Keppra twice a day. Patient is taking her Keppra as directed. Patient would like her medication changed. CBC and CMP were obtained which appear within normal limits. Urine does not show any evidence of infection, hCG negative. Patient has not had any seizures in the emergency department. She was given 500 mg of Keppra. Patient states that she is feeling much better and would like to go home. Discussed continuing her medications at home and following up with Dr. Cavazos tomorrow. Discussed return precautions and monitoring for worsening smyptoms. All questions answered. - Lab Data Result diagrams: 10/09/18 15:50 10/09/18 15:50 Lab Results 10/09/18 10/09/18 10/09/18 Range/Units 15:50 15:50 16:19 WBC 6.2 (3.8-10.6) k/uL RBC 4.73 (3.80-5.40) m/uL Hgb 14.9 (11.4-16.0) gm/dL Hct 45.0 (34.0-46.0) % MCV 95.2 (80.0-100.0) fL MCH 31.5 (25.0-35.0) pg MCHC 33.1 (31.0-37.0) g/dL RDW 13.1 (11.5-15.5) % Plt Count 260 (150-450) k/uL Neutrophils % 59 % Lymphocytes % 32 % Monocytes % 5 % Eosinophils % 1 % Basophils % 1 % Neutrophils # 3.6 (1.3-7.7) k/uL Lymphocytes # 2.0 (1.0-4.8) k/uL Monocytes # 0.3 (0-1.0) k/uL Eosinophils # 0.1 (0-0.7) k/uL Basophils # 0.0 (0-0.2) k/uL Sodium 139 (137-145) mmol/L Potassium 4.1 (3.5-5.1) mmol/L Chloride 109 H (98-107) mmol/L Carbon Dioxide 23 (22-30) mmol/L Anion Gap 7 mmol/L BUN 11 (7-17) mg/dL Creatinine 0.86 (0.52-1.04) mg/dL Est GFR (CKD-EPI)AfAm >90 (>60 ml/min/1.73 sqM) Est GFR (CKD-EPI)NonAf 90 (>60 ml/min/1.73 sqM) Glucose 144 H (74-99) mg/dL Calcium 9.3 (8.4-10.2) mg/dL Total Bilirubin 0.4 (0.2-1.3) mg/dL AST 18 (14-36) U/L ALT 25 (9-52) U/L Alkaline Phosphatase 87 (38-126) U/L Total Protein 7.6 (6.3-8.2) g/dL Albumin 4.0 (3.5-5.0) g/dL Urine Color Urine Appearance (Clear) Urine pH (5.0-8.0) Ur Specific [place] (1.001-1.035) Urine Protein (Negative) Urine Glucose (UA) (Negative) Urine Ketones (Negative) Urine Blood (Negative) Urine Nitrite (Negative) Urine Bilirubin (Negative) Urine Urobilinogen (<2.0) mg/dL Ur Leukocyte Esterase (Negative) Urine RBC (0-5) /hpf Urine WBC (0-5) /hpf Ur Squamous Epith Cells (0-4) /hpf Urine Bacteria (None) /hpf Urine Mucus (None) /hpf Urine HCG, Qual Not Detected (Not Detectd) 10/09/18 Range/Units 16:19 WBC (3.8-10.6) k/uL RBC (3.80-5.40) m/uL Hgb (11.4-16.0) gm/dL Hct (34.0-46.0) % MCV (80.0-100.0) fL MCH (25.0-35.0) pg MCHC (31.0-37.0) g/dL RDW (11.5-15.5) % Plt Count (150-450) k/uL Neutrophils % % Lymphocytes % % Monocytes % % Eosinophils % % Basophils % % Neutrophils # (1.3-7.7) k/uL Lymphocytes # (1.0-4.8) k/uL Monocytes # (0-1.0) k/uL Eosinophils # (0-0.7) k/uL Basophils # (0-0.2) k/uL Sodium (137-145) mmol/L Potassium (3.5-5.1) mmol/L Chloride (98-107) mmol/L Carbon Dioxide (22-30) mmol/L Anion Gap mmol/L BUN (7-17) mg/dL Creatinine (0.52-1.04) mg/dL Est GFR (CKD-EPI)AfAm (>60 ml/min/1.73 sqM) Est GFR (CKD-EPI)NonAf (>60 ml/min/1.73 sqM) Glucose (74-99) mg/dL Calcium (8.4-10.2) mg/dL Total Bilirubin (0.2-1.3) mg/dL AST (14-36) U/L ALT (9-52) U/L Alkaline Phosphatase (38-126) U/L Total Protein (6.3-8.2) g/dL Albumin (3.5-5.0) g/dL Urine Color Yellow Urine Appearance Cloudy H (Clear) Urine pH 6.5 (5.0-8.0) Ur Specific [place] 1.026 (1.001-1.035) Urine Protein 1+ H (Negative) Urine Glucose (UA) Negative (Negative) Urine Ketones Negative (Negative) Urine Blood Negative (Negative) Urine Nitrite Negative (Negative) Urine Bilirubin Negative (Negative) Urine Urobilinogen <2.0 (<2.0) mg/dL Ur Leukocyte Esterase Negative (Negative) Urine RBC 1 (0-5) /hpf Urine WBC 4 (0-5) /hpf Ur Squamous Epith Cells 17 H (0-4) /hpf Urine Bacteria Occasional H (None) /hpf Urine Mucus Few H (None) /hpf Urine HCG, Qual (Not Detectd) Disposition Clinical Impression: History of seizure disorder Disposition: HOME SELF-CARE Condition: Good Instructions: Recurrent Seizures in Adults (ED) Additional Instructions: Please follow up with your neurologist Dr Cavazso tomorrow. Continue to take your seizure medication as directed. Please return to the emergency department if you have any worsening symptoms. Is patient prescribed a controlled substance at d/c from ED?: No Referrals: Cecile Wright MD [Primary Care Provider] - 1-2 days Time of Disposition: 17:25
[2018-10-09 16:11] LABS: Basophils % (A) 1 %; Eosinophils # (A) 0.1 k/uL (0-0.7); Eosinophils % (A) 1 %; HGB 14.9 gm/dL (11.4-16.0); Lymphocytes % (A) 32 %; MCH 31.5 pg (25.0-35.0); MCHC 33.1 g/dL (31.0-37.0); MCV 95.2 fL (80.0-100.0); Mean Platelet Volume 6.5; Monocytes # (A) 0.3 k/uL (0-1.0); Monocytes % (A) 5 %; Neutrophils # (A) 3.6 k/uL (1.3-7.7); Neutrophils % (A) 59 %; Platelet Count 260 k/uL (150-450); RBC 4.73 m/uL (3.80-5.40); RDW 13.1 % (11.5-15.5); WBC 6.2 k/uL (3.8-10.6)
[2018-10-09 16:22] LABS: ALT 25 U/L (9-52); AST 18 U/L (14-36); Alkaline Phosphatase 87 U/L (38-126); Anion Gap 7 mmol/L; Blood Urea Nitrogen 11 mg/dL (7-17); Calcium 9.3 mg/dL (8.4-10.2); Carbon Dioxide 23 mmol/L (22-30); Chloride 109 mmol/L (98-107); Glucose 144 mg/dL (74-99); Potassium 4.1 mmol/L (3.5-5.1); Sodium 139 mmol/L (137-145); Total Bilirubin 0.4 mg/dL (0.2-1.3); Total Protein 7.6 g/dL (6.3-8.2)
[2018-10-09 16:34] LABS: Appearance,Urine Cloudy (Clear); Bacteria,Urine Occasional /hpf; Bilirubin,Urine Negative (Negative); Blood,Urine Negative (Negative); Color,Urine Yellow; Glucose,Urine (UA) Negative (Negative); Ketones,Urine Negative (Negative); Leukocyte Esterase,Urine Negative (Negative); Mucus,Urine Few /hpf; Nitrite,Urine Negative (Negative); PH, Urine 6.5 (5.0-8.0); Protein,Urine 1+ (Negative); RBC,Urine 1 /hpf (0-5); Specific Gravity,Urine 1.026 (1.001-1.035); Squamous Epithelial Cell,Urine 17 /hpf (0-4); Urobilinogen,Urine <2.0 mg/dL (<2.0); WBC,Urine 4 /hpf (0-5)
[2018-10-09 17:39] VITALS: BP 138/70; PULSE 78; RESP 16; TEMP 97
== END 2018-10-09 17:38 | disposition home or self-care (01) ==
LOC: EC 15:10
DX: G40.909 Epilepsy, unspecified, not intractable, without status epilepticus (principal); K21.9 Gastro-esophageal reflux disease without esophagitis; I25.2 Old myocardial infarction; G43.909 Migraine, unspecified, not intractable, without status migrainosus; F31.9 Bipolar disorder, unspecified; F90.9 Attention-deficit hyperactivity disorder, unspecified type; F41.9 Anxiety disorder, unspecified; F43.10 Post-traumatic stress disorder, unspecified; Z87.891 Personal history of nicotine dependence; Z79.899 Other long term (current) drug therapy; Z88.7 Allergy status to serum and vaccine; Z88.1 Allergy status to other antibiotic agents; Z88.2 Allergy status to sulfonamides; Z88.5 Allergy status to narcotic agent; Z91.012 Allergy to eggs; Z88.8 Allergy status to other drugs, medicaments and biological substances
CPT/HCPCS: 36415; 80053; 80177; 81001; 81025; 85025; 96360; 96361; 99284

== ENCOUNTER 2018-10-21 22:51 | Emergency (ER) | payer OTHER ==
[2018-10-21 23:04] VITALS: RESP 18; TEMP 97.9
--- NOTE | 2018-10-21 23:22 | ED ---
General Adult HPI - General Chief complaint: GI Bleed Stated complaint: Rectal bleed Time Seen by Provider: 10/21/18 23:08 Source: EMS Mode of arrival: EMS Limitations: no limitations - Related Data Home Medications Medication Instructions Recorded Confirmed Atorvastatin [Lipitor] 10 mg PO DAILY 12/14/17 10/21/18 Omeprazole [PriLOSEC] 20 mg PO AC-BID 02/14/18 10/21/18 Ranitidine HCl [Zantac] 300 mg PO DAILY 02/14/18 10/21/18 Metoprolol Tartrate [Lopressor] 12.5 mg PO BID 09/29/18 10/21/18 Topiramate [Topamax] 25 mg PO BID 09/29/18 10/21/18 levETIRAcetam [Keppra] 500 mg PO BID 09/29/18 10/21/18 ARIPiprazole [Abilify] 30 mg PO DAILY 10/09/18 10/21/18 Atomoxetine HCl 40 mg PO DAILY 10/09/18 10/21/18 Escitalopram [Lexapro] 20 mg PO DAILY 10/09/18 10/21/18 guanFACINE HCL [Intuniv] 2 mg PO DAILY 10/09/18 10/21/18 Previous Rx's Medication Instructions Recorded Ondansetron Odt [Zofran Odt] 4 mg PO Q8HR PRN #10 tab 03/06/18 Allergies Allergy/AdvReac Type Severity Reaction Status Date / Time azithromycin Allergy Rash/Hives Verified 10/21/18 23:20 divalproex sodium Allergy "had Verified 10/21/18 23:20 [From Depakote] seizure when coming off" hydrocodone Allergy Rash/Hives Verified 10/21/18 23:20 Quinolones Allergy Rash/Hives Verified 10/21/18 23:20 sulfamethoxazole Allergy Rash/Hives Verified 10/21/18 23:20 [From Bactrim] tramadol Allergy Rash/Hives Verified 10/21/18 23:20 trimethoprim [From Bactrim] Allergy Rash/Hives Verified 10/21/18 23:20 codeine AdvReac Vertigo Verified 10/21/18 23:20 diphenhydramine HCl AdvReac Rapid Verified 10/21/18 23:20 [From Benadryl] Heart Rate egg AdvReac Nausea & Verified 10/21/18 23:20 Vomiting Influenza Virus Vaccines AdvReac Nausea & Verified 10/21/18 23:20 Vomiting Review of Systems ROS Statement: Those systems with pertinent positive or pertinent negative responses have been documented in the HPI. ROS Other: All systems not noted in ROS Statement are negative. Past Medical History Past Medical History: Asthma, Chest Pain / Angina, GERD/Reflux, Myocardial Infarction ([place]), Seizure Disorder, Syncope Additional Past Medical History / Comment(s): migraines, last seizure 4 months ago [place] x 2, low blood pressures, irregular heart beat, tachycardia, Last Myocardial Infarction Date:: 10/2016 History of Any Multi-Drug Resistant Organisms: None Reported Past Surgical History: Cholecystectomy, Tubal Ligation Additional Past Surgical History / Comment(s): Tilt table test, wisdom teeth extraction. Past Anesthesia/Blood Transfusion Reactions: Previous Problems w/ Anesthesia Additional Past Anesthesia/Blood Transfusion Reaction / Comment(s): "I get anxious when I wake up when my fiance is not there" Past Psychological History: ADD/ADHD, Anxiety, Bipolar, Depression, PTSD Smoking Status: Former smoker Past Alcohol Use History: None Reported Past Drug Use History: None Reported, Heroin - Past Family History Father Family Medical History: Cancer Additional Family Medical History / Comment(s): Father at age 61 from lung CA Mother Family Medical History: No Reported History, Seizure Disorder Additional Family Medical History / Comment(s): Mother is alive with history of bipolar/schitzophrenia Brother(s) Additional Family Medical History / Comment(s): She has one half brother that abuses cocaine and methamphetamines. She does not have any contact with him. Patient has 1 sister with no major medical problems. Patient does not have any children. General Exam Limitations: no limitations Course Vital Signs 10/21/18 23:01 Temperature 97.9 F Pulse Rate 87 Respiratory 18 Rate Blood Pressure 106/75 O2 Sat by Pulse 96 Oximetry Medical Decision Making - Medical Decision Making Dictation was produced using [employer] dictation software. please excuse any grammatical, word or spelling errors. Chief Complaint: 33-year-old female with a red blood per rectum. History of Present Illness: Patient is a 33-year-old female with blood red blood per rectum. Patient states she's having him bowel movement earlier today when she noticed bright red blood per rectum. Patient states she did have some rectal pain. Denies any nausea vomiting. Denies any abdominal pain. No constitutional symptoms. Patient denies any history. The ROS documented in this emergency department record has been reviewed and confirmed by me. Those systems with pertinent positive or negative responses have been documented in the HPI. All other systems are other negative and/or noncontributory. PHYSICAL EXAM: General Impression: Alert and oriented x3, not in acute distress HEENT: Normocephalic atraumatic, extra-ocular movements intact, pupils equal and reactive to light bilaterally, mucous membranes moist. Cardiovascular: Heart regular rate and rhythm, S1&S2 audible, no murmurs, rubs or gallops Chest: Lungs clear to auscultation bilaterally, no rhonchi, no wheeze, no rales Abdomen: Bowel sounds present, abdomen soft, non-tender, non-distended, no organomegaly Musculoskeletal: Pulses present and equal in all extremities, no peripheral edema Motor: Power 5/5 bilaterally, no focal deficits noted Neurological: CN II-XII grossly intact, no focal motor or sensory deficits noted Skin: Intact with no visualized rashes Psych: Normal affect and mood Rectal exam: There is a polyp noted at the 6 o'clock position. There is palpable hemorrhoids in the rectal vault. No gross blood ED course: 33-year-old female with clinical presentation concerning for internal hemorrhoids. Vital signs upon arrival are within acceptable limits. CBC obtained. Hemoglobin stable. Patient not bleeding. Patient to be discharged with outpatient follow-up with gastroenterology. Clinical presentation is likely from bleeding internal hemorrhoids. Patient given referral to Dr. Winter. - Lab Data Result diagrams: 10/21/18 23:23 Lab Results 10/21/18 Range/Units 23:23 WBC 10.5 (3.8-10.6) k/uL RBC 4.59 (3.80-5.40) m/uL Hgb 14.2 (11.4-16.0) gm/dL Hct 43.6 (34.0-46.0) % MCV 94.8 (80.0-100.0) fL MCH 30.8 (25.0-35.0) pg MCHC 32.5 (31.0-37.0) g/dL RDW 13.1 (11.5-15.5) % Plt Count 228 (150-450) k/uL Neutrophils % 65 % Lymphocytes % 25 % Monocytes % 6 % Eosinophils % 1 % Basophils % 0 % Neutrophils # 6.8 (1.3-7.7) k/uL Lymphocytes # 2.7 (1.0-4.8) k/uL Monocytes # 0.6 (0-1.0) k/uL Eosinophils # 0.2 (0-0.7) k/uL Basophils # 0.0 (0-0.2) k/uL Disposition Clinical Impression: Hematochezia Disposition: HOME SELF-CARE Condition: Good Instructions (If sedation given, give patient instructions): Gastrointestinal Bleeding (ED) Is patient prescribed a controlled substance at d/c from ED?: No Referrals: Cecile Wright MD [Primary Care Provider] - 1-2 days Coleman Winter MD [STAFF PHYSICIAN] - 1-2 days Time of Disposition: 00:11
[2018-10-21 23:39] LABS: Basophils % (A) 0 %; Eosinophils # (A) 0.2 k/uL (0-0.7); Eosinophils % (A) 1 %; HCT 43.6 % (34.0-46.0); HGB 14.2 gm/dL (11.4-16.0); Lymphocytes # (A) 2.7 k/uL (1.0-4.8); Lymphocytes % (A) 25 %; MCH 30.8 pg (25.0-35.0); MCHC 32.5 g/dL (31.0-37.0); MCV 94.8 fL (80.0-100.0); Mean Platelet Volume 6.5; Monocytes # (A) 0.6 k/uL (0-1.0); Monocytes % (A) 6 %; Neutrophils # (A) 6.8 k/uL (1.3-7.7); Neutrophils % (A) 65 %; Platelet Count 228 k/uL (150-450); RBC 4.59 m/uL (3.80-5.40); RDW 13.1 % (11.5-15.5); WBC 10.5 k/uL (3.8-10.6)
[2018-10-22 00:23] VITALS: BP 97/62; PULSE 86
== END 2018-10-22 00:23 | disposition home or self-care (01) ==
LOC: EC 22:51
DX: K92.1 Melena (principal); K62.1 Rectal polyp; K64.9 Unspecified hemorrhoids; K21.9 Gastro-esophageal reflux disease without esophagitis; G40.909 Epilepsy, unspecified, not intractable, without status epilepticus; I25.2 Old myocardial infarction; F31.9 Bipolar disorder, unspecified; F41.9 Anxiety disorder, unspecified; F90.9 Attention-deficit hyperactivity disorder, unspecified type; Z87.891 Personal history of nicotine dependence; Z88.1 Allergy status to other antibiotic agents; Z88.2 Allergy status to sulfonamides; Z88.5 Allergy status to narcotic agent; Z88.7 Allergy status to serum and vaccine; Z88.8 Allergy status to other drugs, medicaments and biological substances; Z91.012 Allergy to eggs; Z79.899 Other long term (current) drug therapy; Z86.69 Personal history of other diseases of the nervous system and sense organs; Z90.49 Acquired absence of other specified parts of digestive tract
CPT/HCPCS: 36415; 85025; 99283

== ENCOUNTER 2018-11-02 18:26 | Emergency (ER) | payer OTHER ==
[2018-11-02 18:37] VITALS: RESP 18; TEMP 98.5
[2018-11-02] MEDS ORDERED: methylPREDNISolone SOD SUCCI 125 MG/2 ML VIAL IM STA (18:54)
[2018-11-02] MEDS ORDERED: methylPREDNISolone SOD SUCCI 125 MG/2 ML VIAL IV STA (18:55)
[2018-11-02] MEDS ORDERED: SODIUM CHLORIDE 0.9% 1,000 ML IV ONE (18:56)
--- NOTE | 2018-11-02 19:00 | ED ---
General Adult HPI - General Chief complaint: Upper Respiratory Infection Stated complaint: FLU-LIKE SYMPTOMS Time Seen by Provider: 11/02/18 18:39 Source: patient Mode of arrival: ambulatory Limitations: no limitations - History of Present Illness Initial comments: Patient is a 33-year-old female presenting for cough and congestion. Patient states that his been going on for 2 weeks and she has had subjective fevers and chills. She admits a little bit of shortness of breath but no chest pain. She states that she has tried [id number] medications without significant relief and she has been around people with similar type illness. - Related Data Home Medications Medication Instructions Recorded Confirmed Atorvastatin [Lipitor] 10 mg PO DAILY 12/14/17 11/02/18 Omeprazole [PriLOSEC] 20 mg PO AC-BID 02/14/18 11/02/18 Ranitidine HCl [Zantac] 300 mg PO DAILY 02/14/18 11/02/18 Metoprolol Tartrate [Lopressor] 12.5 mg PO BID 09/29/18 11/02/18 Topiramate [Topamax] 25 mg PO BID 09/29/18 11/02/18 levETIRAcetam [Keppra] 500 mg PO BID 09/29/18 11/02/18 ARIPiprazole [Abilify] 30 mg PO DAILY 10/09/18 11/02/18 Atomoxetine HCl 40 mg PO DAILY 10/09/18 11/02/18 Escitalopram [Lexapro] 20 mg PO DAILY 10/09/18 11/02/18 guanFACINE HCL [Intuniv] 2 mg PO DAILY 10/09/18 11/02/18 Previous Rx's Medication Instructions Recorded Ondansetron Odt [Zofran Odt] 4 mg PO Q8HR PRN #10 tab 03/06/18 Doxycycline Monohydrate [Monodox] 100 mg PO Q12HR #14 cap 11/02/18 predniSONE 50 mg PO DAILY #4 tablet 11/02/18 Allergies Allergy/AdvReac Type Severity Reaction Status Date / Time azithromycin Allergy Rash/Hives Verified 11/02/18 18:49 divalproex sodium Allergy "had Verified 11/02/18 18:49 [From Depakote] seizure when coming off" hydrocodone Allergy Rash/Hives Verified 11/02/18 18:49 Quinolones Allergy Rash/Hives Verified 11/02/18 18:49 sulfamethoxazole Allergy Rash/Hives Verified 11/02/18 18:49 [From Bactrim] tramadol Allergy Rash/Hives Verified 11/02/18 18:49 trimethoprim [From Bactrim] Allergy Rash/Hives Verified 11/02/18 18:49 codeine AdvReac Vertigo Verified 11/02/18 18:49 diphenhydramine HCl AdvReac Rapid Verified 11/02/18 18:49 [From Benadryl] Heart Rate egg AdvReac Nausea & Verified 11/02/18 18:49 Vomiting Influenza Virus Vaccines AdvReac Nausea & Verified 11/02/18 18:49 Vomiting Review of Systems ROS Statement: Those systems with pertinent positive or pertinent negative responses have been documented in the HPI. Constitutional: Positive for chills, fatigue and fever. HENT: Positive for congestion. Respiratory: Negative for chest tightness and wheezing. Positive for cough and shortness of breath Cardiovascular: Negative for chest pain and palpitations. Gastrointestinal: Negative for abdominal pain. Negative for abdominal distention , diarrhea, nausea and vomiting. Genitourinary: Negative for dysuria. Musculoskeletal: Negative for back pain, neck pain and neck stiffness. Skin: Negative for color change. Neurological: Negative for dizziness, speech difficulty, weakness and light- headedness. Psychiatric/Behavioral: Negative for agitation and confusion. Negative for anxiety ROS Other: All systems not noted in ROS Statement are negative. Past Medical History Past Medical History: Asthma, Chest Pain / Angina, GERD/Reflux, Myocardial Infarction ([place]), Seizure Disorder, Syncope Additional Past Medical History / Comment(s): migraines, last seizure 4 months ago [place] x 2, low blood pressures, irregular heart beat, tachycardia, Last Myocardial Infarction Date:: 10/2016 History of Any Multi-Drug Resistant Organisms: None Reported Past Surgical History: Cholecystectomy, Tubal Ligation Additional Past Surgical History / Comment(s): Tilt table test, wisdom teeth extraction. Past Anesthesia/Blood Transfusion Reactions: Previous Problems w/ Anesthesia Additional Past Anesthesia/Blood Transfusion Reaction / Comment(s): "I get anxious when I wake up when my fiance is not there" Past Psychological History: ADD/ADHD, Anxiety, Bipolar, Depression, PTSD Smoking Status: Former smoker Past Alcohol Use History: None Reported Past Drug Use History: None Reported, Heroin - Past Family History Father Family Medical History: Cancer Additional Family Medical History / Comment(s): Father at age 61 from lung CA Mother Family Medical History: No Reported History, Seizure Disorder Additional Family Medical History / Comment(s): Mother is alive with history of bipolar/schitzophrenia Brother(s) Additional Family Medical History / Comment(s): She has one half brother that abuses cocaine and methamphetamines. She does not have any contact with him. Patient has 1 sister with no major medical problems. Patient does not have any children. General Exam - General Exam Comments Initial Comments: Constitutional: Pt appears well-developed and well-nourished. No distress. Head: Normocephalic and atraumatic. Eyes: EOM are normal. Neck: Normal range of motion. Neck supple. Cardiovascular: Tachycardia present, regular rhythm, S1 normal, S2 normal and normal heart sounds. Exam reveals no gallop and no friction rub. No murmur heard. Pulmonary/Chest: Effort normal and breath sounds normal. No tachypnea and no bradypnea. No respiratory distress. No wheezes or rales noted. Abdominal: Soft. Bowel sounds are normal. Pt exhibits no shifting dullness, no distension, no pulsatile liver, no fluid wave, no abdominal bruit and no ascites. There is no rigidity, no rebound, no guarding, no tenderness at McBurney's point and negative Guadarrama's sign. There is no tenderness. Musculoskeletal: Normal range of motion. Neurological: Pt is alert and oriented to person, place, and time. No cranial nerve deficit. Skin: Skin is warm and dry. No rash noted. Pt is not diaphoretic. No erythema. No pallor. Psychiatric: Pt has a normal mood and affect. Pt behavior is normal. Thought content normal. Limitations: no limitations Course Vital Signs 11/02/18 11/02/18 18:34 21:05 Temperature 98.5 F Pulse Rate 113 H 98 Respiratory 18 18 Rate Blood Pressure 114/79 113/77 O2 Sat by Pulse 97 100 Oximetry Medical Decision Making - Medical Decision Making Laboratory studies showed that patient was negative for influenza and . Chest x-ray also showed no evidence of acute infiltrate. However, because the patient's symptoms had been going on for at least 10 days, without that she may benefit from a dose of antibiotics and therefore was given doxycycline. She was also given steroids. Patient was reexamined prior to d/c and found to be resting comfortably in bed in no acute distress.Explained all labs and diagnostic test results and that we will discharge the patient home and patient is to follow up with PCP in 1-2 days and return to the ED if symptoms worsen. Pt is agreeable to plan. - Lab Data Lab Results 11/02/18 11/02/18 Range/Units 19:11 20:29 Urine HCG, Qual Not Detected (Not Detectd) Influenza Type A RNA Not Detected (Not Detectd) Influenza Type B (PCR) Not Detected (Not Detectd) Disposition Clinical Impression: Bronchitis Disposition: HOME SELF-CARE Condition: Good Instructions (If sedation given, give patient instructions): Upper Respiratory Infection (ED) Prescriptions: Doxycycline Monohydrate [Monodox] 100 mg PO Q12HR #14 cap predniSONE 50 mg PO DAILY #4 tablet Is patient prescribed a controlled substance at d/c from ED?: No When asked, does pt state using other controlled substances?: No Referrals: Cecile Wright MD [Primary Care Provider] - 1-2 days Time of Disposition: 20:23
--- NOTE | 2018-11-02 20:12 | XR ---
EXAMINATION TYPE: XR chest 2V DATE OF EXAM: 11/02/2018 COMPARISON: 06/09/2018 INDICATION: Flulike symptoms TECHNIQUE: Frontal and lateral views of the chest are obtained. FINDINGS: The heart size is normal. The pulmonary vasculature is normal. The lungs are clear. IMPRESSION: 1. No acute pulmonary process.
[2018-11-02 21:06] VITALS: BP 113/77; PULSE 98
== END 2018-11-02 21:05 | disposition home or self-care (01) ==
LOC: EC 18:26
DX: J40 Bronchitis, not specified as acute or chronic (principal); R00.0 Tachycardia, unspecified; K21.9 Gastro-esophageal reflux disease without esophagitis; G40.909 Epilepsy, unspecified, not intractable, without status epilepticus; I25.2 Old myocardial infarction; F31.9 Bipolar disorder, unspecified; F41.9 Anxiety disorder, unspecified; F90.9 Attention-deficit hyperactivity disorder, unspecified type; Z87.891 Personal history of nicotine dependence; Z88.1 Allergy status to other antibiotic agents; Z88.2 Allergy status to sulfonamides; Z88.5 Allergy status to narcotic agent; Z88.7 Allergy status to serum and vaccine; Z88.8 Allergy status to other drugs, medicaments and biological substances; Z91.012 Allergy to eggs; Z79.899 Other long term (current) drug therapy; Z86.69 Personal history of other diseases of the nervous system and sense organs; Z80.1 Family history of malignant neoplasm of trachea, bronchus and lung; Z53.8 Procedure and treatment not carried out for other reasons
CPT/HCPCS: 81025; 87502; 71046; 99285; 96374; 96361; J2930

== ENCOUNTER → 2018-11-20 | Outpatient (CLI) | payer OTHER ==
[2018-11-20 09:51] LABS: Basophils # (A) 0.1 k/uL (0-0.2); Basophils % (A) 1 %; Eosinophils # (A) 0.1 k/uL (0-0.7); Eosinophils % (A) 2 %; HCT 45.4 % (34.0-46.0); HGB 14.6 gm/dL (11.4-16.0); Lymphocytes # (A) 2.1 k/uL (1.0-4.8); Lymphocytes % (A) 32 %; MCH 30.9 pg (25.0-35.0); MCV 96.3 fL (80.0-100.0); Mean Platelet Volume 6.4; Monocytes # (A) 0.5 k/uL (0-1.0); Monocytes % (A) 7 %; Neutrophils # (A) 3.7 k/uL (1.3-7.7); Neutrophils % (A) 57 %; Platelet Count 288 k/uL (150-450); RBC 4.72 m/uL (3.80-5.40); RDW 13.4 % (11.5-15.5); WBC 6.6 k/uL (3.8-10.6)
[2018-11-20 17:13] LABS: Albumin/Globulin Ratio 1.33 (1.60-3.17); Calcium 9.6 mg/dL (8.7-10.3); Potassium 4.5 mmol/L (3.5-5.5); Total Bilirubin 0.3 mg/dL (0.2-1.2); Vitamin D 25 Hydroxy 25.8 ng/mL (30.0-100.0)
[2018-11-20 17:31] LABS: T4, Free (Free Thyroxine) 1.1 ng/dL (0.80-1.80)
== END | disposition home or self-care (01) ==
LOC: LABWHC1 08:27
PROVIDERS: ATTEND Nurse Practitioner Acute Care
DX: R56.9 Unspecified convulsions (principal); R41.3 Other amnesia; R53.82 Chronic fatigue, unspecified; E55.9 Vitamin D deficiency, unspecified
CPT/HCPCS: 36415; 80053; 82306; 82607; 84207; 84439; 84443; 84481; 85025

== ENCOUNTER 2018-11-23 19:07 | Emergency (ER) | payer OTHER ==
[2018-11-23 19:12] VITALS: BP 104/69; TEMP 98.2
[2018-11-23] MEDS ORDERED: SODIUM CHLORIDE 0.9% 1,000 ML IV STA (19:27)
[2018-11-23] MEDS ORDERED: IPRATROPIUM-ALBUTEROL 3 ML NEB INHALATION STA (19:27)
[2018-11-23 19:48] VITALS: RESP 16
[2018-11-23 19:52] VITALS: PULSE 94
--- NOTE | 2018-11-23 19:56 | ED ---
General Adult HPI - General Chief complaint: Upper Respiratory Infection Stated complaint: Cough/Fever Time Seen by Provider: 11/23/18 19:13 Source: patient, RN notes reviewed, old records reviewed Mode of arrival: ambulatory Limitations: no limitations - History of Present Illness Initial comments: 32-year-old female patient past with past medical history of asthma, tobacco abuse presents to ED with approximately 3 weeks of cough. Patient was seen by her primary care provider and prescribed azithromycin which she finished approximate 5 days ago. Patient is not taking any other medication for this cough. Patient states that the cough is at times productive with green mucus. Patient denies any other complaints. Patient denies chest pain or shortness of breath. Patient denies abdominal pain or nausea vomiting or diarrhea. Patient denies other complaints. Systemic: Pt denies fatigue, myalgia, fever/chills, rash. Pt denies weakness, night sweats, weight loss. Neuro: Pt denies headache, visual disturbances, syncope or pre-syncope. HEENT: Pt denies ocular discharge or irritation, otalgia, rhinorrhea, pharyngitis or notable lymphadenopathy. Cardiopulmonary: Pt denies chest pain, SOB, heart palpitations, dyspnea on exertion. Abdominal/GI: Pt denies abdominal pain, n/v/d. : Pt denies dysuria, burning w/ urination, frequency/urgency. Denies new onset urinary or bowel incontinence. MSK: Pt denies myalgia, loss of strength or function in extremities. Neuro: Pt denies new onset weakness, paresthesias. - Related Data Home Medications Medication Instructions Recorded Confirmed Atorvastatin [Lipitor] 10 mg PO DAILY 12/14/17 11/02/18 Omeprazole [PriLOSEC] 20 mg PO AC-BID 02/14/18 11/02/18 Ranitidine HCl [Zantac] 300 mg PO DAILY 02/14/18 11/02/18 Metoprolol Tartrate [Lopressor] 12.5 mg PO BID 09/29/18 11/02/18 Topiramate [Topamax] 25 mg PO BID 09/29/18 11/02/18 levETIRAcetam [Keppra] 500 mg PO BID 09/29/18 11/02/18 ARIPiprazole [Abilify] 30 mg PO DAILY 10/09/18 11/02/18 Atomoxetine HCl 40 mg PO DAILY 10/09/18 11/02/18 Escitalopram [Lexapro] 20 mg PO DAILY 10/09/18 11/02/18 guanFACINE HCL [Intuniv] 2 mg PO DAILY 10/09/18 11/02/18 Previous Rx's Medication Instructions Recorded Ondansetron Odt [Zofran Odt] 4 mg PO Q8HR PRN #10 tab 03/06/18 Doxycycline Monohydrate [Monodox] 100 mg PO Q12HR #14 cap 11/02/18 predniSONE 50 mg PO DAILY #4 tablet 11/02/18 Albuterol Inhaler [Ventolin Hfa 1 - 2 puff INHALATION Q4-6H PRN #1 11/23/18 Inhaler] inhaler Albuterol Nebulized [Ventolin 2.5 mg INHALATION Q4H PRN 10 Days 11/23/18 Nebulized] nebu predniSONE 20 mg PO BID 4 Days #8 tab 11/23/18 Allergies Allergy/AdvReac Type Severity Reaction Status Date / Time azithromycin Allergy Rash/Hives Verified 11/23/18 19:12 divalproex sodium Allergy "had Verified 11/23/18 19:12 [From Depakote] seizure when coming off" hydrocodone Allergy Rash/Hives Verified 11/23/18 19:12 Quinolones Allergy Rash/Hives Verified 11/23/18 19:12 sulfamethoxazole Allergy Rash/Hives Verified 11/23/18 19:12 [From Bactrim] tramadol Allergy Rash/Hives Verified 11/23/18 19:12 trimethoprim [From Bactrim] Allergy Rash/Hives Verified 11/23/18 19:12 codeine AdvReac Vertigo Verified 11/23/18 19:12 diphenhydramine HCl AdvReac Rapid Verified 11/23/18 19:12 [From Benadryl] Heart Rate egg AdvReac Nausea & Verified 11/23/18 19:12 Vomiting Influenza Virus Vaccines AdvReac Nausea & Verified 11/23/18 19:12 Vomiting Review of Systems ROS Statement: Those systems with pertinent positive or pertinent negative responses have been documented in the HPI. ROS Other: All systems not noted in ROS Statement are negative. Past Medical History Past Medical History: Asthma, Chest Pain / Angina, GERD/Reflux, Myocardial Infarction ([place]), Seizure Disorder, Syncope Additional Past Medical History / Comment(s): migraines, last seizure 4 months ago [place] x 2, low blood pressures, irregular heart beat, tachycardia, Last Myocardial Infarction Date:: 10/2016 History of Any Multi-Drug Resistant Organisms: None Reported Past Surgical History: Cholecystectomy, Tubal Ligation Additional Past Surgical History / Comment(s): Tilt table test, wisdom teeth extraction. Past Anesthesia/Blood Transfusion Reactions: Previous Problems w/ Anesthesia Additional Past Anesthesia/Blood Transfusion Reaction / Comment(s): "I get anxious when I wake up when my fiance is not there" Past Psychological History: ADD/ADHD, Anxiety, Bipolar, Depression, PTSD Smoking Status: Former smoker Past Alcohol Use History: None Reported Past Drug Use History: None Reported, Heroin - Past Family History Father Family Medical History: Cancer Additional Family Medical History / Comment(s): Father at age 61 from lung CA Mother Family Medical History: No Reported History, Seizure Disorder Additional Family Medical History / Comment(s): Mother is alive with history of bipolar/schitzophrenia Brother(s) Additional Family Medical History / Comment(s): She has one half brother that abuses cocaine and methamphetamines. She does not have any contact with him. Patient has 1 sister with no major medical problems. Patient does not have any children. General Exam - General Exam Comments Initial Comments: Constitutional: NAD, AOX3, Pt has pleasant affect. HEENT: NC/AT, trachea midline, neck supple, no lymphadenopathy. Posterior pharynx non erythematous, without exudates. External ears appear normal, without discharge. Mucous membranes moist. Eyes PERRLA, EOM intact. There is no scleral icterus. No pallor noted. Cardiopulmonary: RRR, no murmurs, rubs or gallops, no JVD noted. Mild wheeze in anterior lung field, resolved after breathing treatment. No peripheral edema. Abdominal exam: Abdomen soft and non-distended. Abdomen non-tender to palpation in all 4 quadrants. Bowel sounds active in LLQ. No hepatosplenomegaly. No ecchymosis Neuro: CN II-XII grossly intact. No nuchal rigidity. MSK: No posterior calf tenderness bilaterally, homans sign negative bilaterally. Posterior tibialis and radial pulse +2 bilaterally. Sensation intact in upper and lower extremities. Full active ROM in upper and lower extremities, 5/5 stregnth. Limitations: no limitations Course Vital Signs 11/23/18 11/23/18 11/23/18 19:09 19:45 19:52 Temperature 98.2 F Pulse Rate 113 H 97 94 Respiratory 20 16 16 Rate Blood Pressure 104/69 O2 Sat by Pulse 97 Oximetry Medical Decision Making - Medical Decision Making 32-year-old female patient past with past medical history of asthma, tobacco abuse presents to ED with approximately 3 weeks of cough. Patient was seen by her primary care provider and prescribed azithromycin which she finished approximate 5 days ago. Patient is not taking any other medication for this cough. Patient states that the cough is at times productive with green mucus. Patient denies any other complaints. Patient denies chest pain or shortness of breath. Patient denies abdominal pain or nausea vomiting or diarrhea. Patient denies other complaints. Pt VSS, afebrile. Physical exam displayed: Mild wheeze in anterior lung field, resolved after breathing treatment. Laboratory investigations revealed nonpresence of CBC, CMP. Chest x-ray revealed no acute process. Patient improved with DuoNeb breathing treatment. Patient diagnosis of bronchitis. Patient is to prednisone ED. Patient prescribed albuterol, 4 additional days of prednisone. Patient follow up with primary care provider tomorrow. Patient to return to ED if new signs or symptoms develop or condition worsens in any way. Case discussed in depth with Dr. Laguerre. - Lab Data Result diagrams: 11/23/18 19:55 11/23/18 19:55 Lab Results 11/23/18 11/23/18 Range/Units 19:55 19:55 WBC 8.2 (3.8-10.6) k/uL RBC 4.20 (3.80-5.40) m/uL Hgb 12.9 (11.4-16.0) gm/dL Hct 39.8 (34.0-46.0) % MCV 94.7 (80.0-100.0) fL MCH 30.6 (25.0-35.0) pg MCHC 32.3 (31.0-37.0) g/dL RDW 13.4 (11.5-15.5) % Plt Count 236 (150-450) k/uL Neutrophils % 56 % Lymphocytes % 32 % Monocytes % 8 % Eosinophils % 2 % Basophils % 0 % Neutrophils # 4.5 (1.3-7.7) k/uL Lymphocytes # 2.6 (1.0-4.8) k/uL Monocytes # 0.6 (0-1.0) k/uL Eosinophils # 0.2 (0-0.7) k/uL Basophils # 0.0 (0-0.2) k/uL Sodium 142 (137-145) mmol/L Potassium 3.7 (3.5-5.1) mmol/L Chloride 112 H (98-107) mmol/L Carbon Dioxide 21 L (22-30) mmol/L Anion Gap 9 mmol/L BUN 16 (7-17) mg/dL Creatinine 1.05 H (0.52-1.04) mg/dL Est GFR (CKD-EPI)AfAm 81 (>60 ml/min/1.73 sqM) Est GFR (CKD-EPI)NonAf 70 (>60 ml/min/1.73 sqM) Glucose 90 (74-99) mg/dL Calcium 9.7 (8.4-10.2) mg/dL Total Bilirubin 0.3 (0.2-1.3) mg/dL AST 14 (14-36) U/L ALT 33 (9-52) U/L Alkaline Phosphatase 69 (38-126) U/L Total Protein 7.1 (6.3-8.2) g/dL Albumin 3.8 (3.5-5.0) g/dL Disposition Clinical Impression: Bronchitis Disposition: HOME SELF-CARE Condition: Stable Instructions (If sedation given, give patient instructions): Acute Bronchitis ( ED) Additional Instructions: Patient to adhere to previously discussed treatment plan and will take medication(s) as directed. Patient to follow up with PCP in 1-2 days. Patient to return to ED if symptoms do not improve. Please follow-up with primary care provider tomorrow. Please take medication as directed. Please return to ER if symptoms worsen or new symptoms develop. Prescriptions: Albuterol Inhaler [Ventolin Hfa Inhaler] 1 - 2 puff INHALATION Q4-6H PRN #1 inhaler PRN Reason: Cough Albuterol Nebulized [Ventolin Nebulized] 2.5 mg INHALATION Q4H PRN 10 Days nebu PRN Reason: Cough predniSONE 20 mg PO BID 4 Days #8 tab Is patient prescribed a controlled substance at d/c from ED?: No Referrals: Cecile Wright MD [Primary Care Provider] - 1-2 days
[2018-11-23 20:16] LABS: Basophils % (A) 0 %; Eosinophils # (A) 0.2 k/uL (0-0.7); Eosinophils % (A) 2 %; HCT 39.8 % (34.0-46.0); HGB 12.9 gm/dL (11.4-16.0); Lymphocytes # (A) 2.6 k/uL (1.0-4.8); Lymphocytes % (A) 32 %; MCH 30.6 pg (25.0-35.0); MCHC 32.3 g/dL (31.0-37.0); MCV 94.7 fL (80.0-100.0); Mean Platelet Volume 6.3; Monocytes # (A) 0.6 k/uL (0-1.0); Monocytes % (A) 8 %; Neutrophils # (A) 4.5 k/uL (1.3-7.7); Neutrophils % (A) 56 %; Platelet Count 236 k/uL (150-450); RDW 13.4 % (11.5-15.5); WBC 8.2 k/uL (3.8-10.6)
[2018-11-23 20:17] LABS: Albumin 3.8 g/dL (3.5-5.0); Calcium 9.7 mg/dL (8.4-10.2); Potassium 3.7 mmol/L (3.5-5.1); Total Bilirubin 0.3 mg/dL (0.2-1.3); Total Protein 7.1 g/dL (6.3-8.2)
[2018-11-23] MEDS ORDERED: predniSONE 20 MG TAB PO STA (20:20)
--- NOTE | 2018-11-23 20:38 | XR ---
EXAMINATION TYPE: XR chest 2V DATE OF EXAM: 11/23/2018 COMPARISON: 11/02/2018 HISTORY: Cough and fever TECHNIQUE: Frontal and lateral views of the chest are obtained. FINDINGS: Heart and mediastinum are normal. Lungs are clear. Diaphragm is normal. Bony thorax appear s normal. IMPRESSION: Normal chest. No change.
== END 2018-11-23 21:20 | disposition home or self-care (01) ==
LOC: EC 19:07
DX: J45.909 Unspecified asthma, uncomplicated (principal); K21.9 Gastro-esophageal reflux disease without esophagitis; I25.2 Old myocardial infarction; G40.909 Epilepsy, unspecified, not intractable, without status epilepticus; G43.909 Migraine, unspecified, not intractable, without status migrainosus; F31.9 Bipolar disorder, unspecified; F90.9 Attention-deficit hyperactivity disorder, unspecified type; F41.9 Anxiety disorder, unspecified; F43.10 Post-traumatic stress disorder, unspecified; Z87.891 Personal history of nicotine dependence; Z79.899 Other long term (current) drug therapy; Z88.1 Allergy status to other antibiotic agents; Z88.2 Allergy status to sulfonamides; Z88.5 Allergy status to narcotic agent; Z88.8 Allergy status to other drugs, medicaments and biological substances; Z88.7 Allergy status to serum and vaccine; Z91.012 Allergy to eggs; Z90.49 Acquired absence of other specified parts of digestive tract
CPT/HCPCS: 36415; 94640; 80053; 85025; 71046; 99284; 96360; J7512

== ENCOUNTER 2018-12-01 20:30 | Emergency (ER) | payer OTHER ==
[2018-12-01] MEDS ORDERED: DIAZEPAM 5 MG TAB PO STA (21:33)
--- NOTE | 2018-12-01 22:27 | XR ---
EXAM: XR Cervical Spine, 4 or 5 Views CLINICAL HISTORY: Reason: pain TECHNIQUE: Frontal, lateral and oblique views of the cervical spine. COMPARISON: None available FINDINGS: Vertebrae: Metallic earrings overlie odontoid Cervical vertebral height and alignment are within normal limits except for straightening of normal cervical lordosis. C7 vertebra is suboptimally visualized on lateral view but appears grossly normal. Defect involves C2 vertebral posterior elements-spinous process which could reflect fusion anomaly, but cannot exclude possibility of vertebral fracture. Other bones/joints: Bilateral cervical ribs. Disc spaces: Disc spaces are well-maintained. No significant spondylosis. Soft tissues: Prevertebral soft tissues are unremarkable. IMPRESSION: Straightening of normal cervical lordosis. C7 vertebra is suboptimally visualized but appears grossly normal. Defect involving C2 vertebral posterior elements and spinous process which could reflect fusion anomaly, but cannot exclude vertebral fracture. CT cervical spine would be useful for further evaluation. Bilateral cervical ribs. <MYCVCSECTION> [employer] 12/01/18 22:34 Verify Receipt Verified receipt with Deric RICHARDSON on 12/01 22: 33 (-04:00)
--- NOTE | 2018-12-01 23:47 | CT ---
EXAM: CT Cervical Spine Without Intravenous Contrast CLINICAL HISTORY: Reason: Pain TECHNIQUE: Axial computed tomography images of the cervical spine without intravenous contrast. CTDI is 10.6 mGy and DLP is 289.1 mGy-cm. This CT exam was performed using one or more of the following dose reduction techniques: automated exposure control, adjustment of the mA and/or kV according to patient size, and/or use of iterative reconstruction technique. COMPARISON: Cervical spine x-rays 12/01/18 FINDINGS: Vertebrae: Cervical vertebral height and alignment are within normal limits No evidence of acute cervical fracture or dislocation. Well- corticated bony defect involving midline C2 posterior elements and spinous process compatible with vertebral fusion anomaly. Discs/spinal canal: No significant cervical osseous spinal stenosis. Soft tissues: No abnormal prevertebral soft tissue thickening. Other findings: Bilateral C7 cervical ribs. IMPRESSION: No evidence of acute cervical fracture or subluxation. C2 vertebral posterior fusion anomaly. Bilateral cervical ribs.
--- NOTE | 2018-12-01 23:56 | ED ---
General Adult HPI - General Source: patient, EMS, RN notes reviewed, old records reviewed Mode of arrival: EMS Limitations: no limitations <Aayush Grimes - Last Filed: 12/01/18 23:56> <Anusha Her - Last Filed: 12/02/18 00:30> - General Chief complaint: Neck Pain/Injury Stated complaint: Neck pain Time Seen by Provider: 12/01/18 21:03 - History of Present Illness Initial comments: 32-year-old female patient with past medical history of substance abuse, renal calculi presents to ED with 3 days of right paracervical pain after "sleeping on it wrong" patient denies any trauma, fall or injury. Patient reports that she does still have full range of motion of neck, however it is mildly stiff. Patient denies any other complaints. Patient denies any fevers, chills, nausea vomiting diarrhea, chest pain, shunts breath, abdominal pain. Systemic: Pt denies fatigue, fever/chills, rash. Pt denies weakness, night sweats, weight loss. Neuro: Pt denies headache, visual disturbances, syncope or pre-syncope. HEENT: Pt denies ocular discharge or irritation, otalgia, rhinorrhea, pharyngitis or notable lymphadenopathy. Cardiopulmonary: Pt denies chest pain, SOB, heart palpitations, dyspnea on exertion. Abdominal/GI: Pt denies abdominal pain, n/v/d. : Pt denies dysuria, burning w/ urination, frequency/urgency. Denies new onset urinary or bowel incontinence. MSK: Pt denies loss of strength or function in extremities. Neuro: Pt denies new onset weakness, paresthesias. (Aayush Grimes) - Related Data Home Medications Medication Instructions Recorded Confirmed Atorvastatin [Lipitor] 10 mg PO DAILY 12/14/17 11/02/18 Omeprazole [PriLOSEC] 20 mg PO AC-BID 02/14/18 11/02/18 Ranitidine HCl [Zantac] 300 mg PO DAILY 02/14/18 11/02/18 Metoprolol Tartrate [Lopressor] 12.5 mg PO BID 09/29/18 11/02/18 Topiramate [Topamax] 25 mg PO BID 09/29/18 11/02/18 levETIRAcetam [Keppra] 500 mg PO BID 09/29/18 11/02/18 ARIPiprazole [Abilify] 30 mg PO DAILY 10/09/18 11/02/18 Atomoxetine HCl 40 mg PO DAILY 10/09/18 11/02/18 Escitalopram [Lexapro] 20 mg PO DAILY 10/09/18 11/02/18 guanFACINE HCL [Intuniv] 2 mg PO DAILY 10/09/18 11/02/18 Previous Rx's Medication Instructions Recorded Ondansetron Odt [Zofran Odt] 4 mg PO Q8HR PRN #10 tab 03/06/18 Doxycycline Monohydrate [Monodox] 100 mg PO Q12HR #14 cap 11/02/18 predniSONE 50 mg PO DAILY #4 tablet 11/02/18 Albuterol Inhaler [Ventolin Hfa 1 - 2 puff INHALATION Q4-6H PRN #1 11/23/18 Inhaler] inhaler Albuterol Nebulized [Ventolin 2.5 mg INHALATION Q4H PRN 10 Days 11/23/18 Nebulized] nebu predniSONE 20 mg PO BID 4 Days #8 tab 11/23/18 Cyclobenzaprine [Flexeril] 10 mg PO TID #20 tab 12/01/18 Allergies Allergy/AdvReac Type Severity Reaction Status Date / Time azithromycin Allergy Rash/Hives Verified 12/01/18 20:57 divalproex sodium Allergy "had Verified 12/01/18 20:57 [From Depakote] seizure when coming off" hydrocodone Allergy Rash/Hives Verified 12/01/18 20:57 Quinolones Allergy Rash/Hives Verified 12/01/18 20:57 sulfamethoxazole Allergy Rash/Hives Verified 12/01/18 20:57 [From Bactrim] tramadol Allergy Rash/Hives Verified 12/01/18 20:57 trimethoprim [From Bactrim] Allergy Rash/Hives Verified 12/01/18 20:57 codeine AdvReac Vertigo Verified 12/01/18 20:57 diphenhydramine HCl AdvReac Rapid Verified 12/01/18 20:57 [From Benadryl] Heart Rate egg AdvReac Nausea & Verified 12/01/18 20:57 Vomiting Influenza Virus Vaccines AdvReac Nausea & Verified 12/01/18 20:57 Vomiting Review of Systems ROS Other: All systems not noted in ROS Statement are negative. <Aayush Grimes - Last Filed: 12/01/18 23:56> ROS Other: All systems not noted in ROS Statement are negative. <ArdenAnusha P - Last Filed: 12/02/18 00:30> ROS Statement: Those systems with pertinent positive or pertinent negative responses have been documented in the HPI. Past Medical History Past Medical History: Asthma, Chest Pain / Angina, GERD/Reflux, Myocardial Infarction ([place]), Seizure Disorder, Syncope Additional Past Medical History / Comment(s): migraines, last seizure 4 months ago [place] x 2, low blood pressures, irregular heart beat, tachycardia, Last Myocardial Infarction Date:: 10/2016 History of Any Multi-Drug Resistant Organisms: None Reported Past Surgical History: Cholecystectomy, Tubal Ligation Additional Past Surgical History / Comment(s): Tilt table test, wisdom teeth extraction. Past Anesthesia/Blood Transfusion Reactions: Previous Problems w/ Anesthesia Additional Past Anesthesia/Blood Transfusion Reaction / Comment(s): "I get anxious when I wake up when my fiance is not there" Past Psychological History: ADD/ADHD, Anxiety, Bipolar, Depression, PTSD Smoking Status: Former smoker Past Alcohol Use History: None Reported Past Drug Use History: None Reported, Heroin - Past Family History Father Family Medical History: Cancer Additional Family Medical History / Comment(s): Father at age 61 from lung CA Mother Family Medical History: No Reported History, Seizure Disorder Additional Family Medical History / Comment(s): Mother is alive with history of bipolar/schitzophrenia Brother(s) Additional Family Medical History / Comment(s): She has one half brother that abuses cocaine and methamphetamines. She does not have any contact with him. Patient has 1 sister with no major medical problems. Patient does not have any children. <Aayush Grimes - Last Filed: 12/01/18 23:56> General Exam Limitations: no limitations <Aayush Grimes - Last Filed: 12/01/18 23:56> - General Exam Comments Initial Comments: Constitutional: NAD, AOX3, Pt has pleasant affect. HEENT: NC/AT, trachea midline, neck supple, no lymphadenopathy. Posterior pharynx non erythematous, without exudates. External ears appear normal, without discharge. Mucous membranes moist. Eyes PERRLA, EOM intact. There is no scleral icterus. No pallor noted. Cardiopulmonary: RRR, no murmurs, rubs or gallops, no JVD noted. Lungs CTAB in anterior and posterior rey. No peripheral edema. Abdominal exam: Abdomen soft and non-distended. Abdomen non-tender to palpation in all 4 quadrants. Bowel sounds active in LLQ. No hepatosplenomegaly. No ecchymosis Neuro: CN II-XII intact. No nuchal rigidity. MSK: Full active motion of cervical spine. No midline cervical spinal tenderness. Mild right paracervical spinal tenderness. Kernig's and Babinski's negative. No posterior calf tenderness bilaterally, homans sign negative bilaterally. Posterior tibialis and radial pulse +2 bilaterally. Sensation intact in upper and lower extremities. Full active ROM in upper and lower extremities, 5/5 stregnth. (Aayush Grimes) Course Vital Signs 12/01/18 12/01/18 20:55 23:56 Temperature 98.3 F 98 F Pulse Rate 117 H 98 Respiratory 20 18 Rate Blood Pressure 112/79 108/80 O2 Sat by Pulse 96 98 Oximetry Medical Decision Making <Aayush Grimes - Last Filed: 12/01/18 23:56> <Anusha Her - Last Filed: 12/02/18 00:30> - Medical Decision Making 32-year-old female patient with past medical history of substance abuse, renal calculi presents to ED with 3 days of right paracervical pain after "sleeping on it wrong" patient denies any trauma, fall or injury. Patient reports that she does still have full range of motion of neck, however it is mildly stiff. Patient denies any other complaints. Patient denies any fevers, chills, nausea vomiting diarrhea, chest pain, shunts breath, abdominal pain. Patient vital signs stable, afebrile. Physical exam displayed: Full active motion of cervical spine. No midline cervical spinal tenderness. Mild right paracervical spinal tenderness. Kernig's and Babinski's negative. No posterior calf tenderness bilaterally, homans sign negative bilaterally. Posterior tibialis and radial pulse +2 bilaterally. Sensation intact in upper and lower extremities. Full active ROM in upper and lower extremities, 5/5 stregnth. Plain film of cervical spine was unable to rule out fracture. CT cervical spine did not display any acute fracture subluxation. CT vertebral posterior fusion anomalies. Patient improved with Valium. Patient to be discharged, follow-up with primary care provider. Patient to be prescribed Flexeril. Patient return to ER condition worsens in any way. Patient not driving home. Case discussed with Dr. Her. (Aayush Grimes) I was available for consultation in the emergency department. The history and physical exam were done by the midlevel provider. I was consulted for this patient's care. I reviewed the case with the midlevel provider and based on their presentation of the patient, I agree with the assessment, medical decision making and plan of care as documented. (Anusha Her) Disposition Is patient prescribed a controlled substance at d/c from ED?: No <Aayush Grimes - Last Filed: 12/01/18 23:56> <Anusha Her - Last Filed: 12/02/18 00:30> Clinical Impression: Musculoskeletal pain, Cervical strain Disposition: HOME SELF-CARE Condition: Stable Instructions (If sedation given, give patient instructions): Cervical Strain (ED) Additional Instructions: Patient to adhere to previously discussed treatment plan and will take medication(s) as directed. Patient to follow up with PCP in 1-2 days. Patient to return to ED if symptoms do not improve. Follow-up with primary care provider in 1-2 days. May use Flexeril and nonsteroidal anti-inflammatories for neck stiffness. Return to ER if condition worsens in any way. Prescriptions: Cyclobenzaprine [Flexeril] 10 mg PO TID #20 tab Referrals: Cecile Wright MD [Primary Care Provider] - 1-2 days
[2018-12-01 23:57] VITALS: BP 108/80; PULSE 98; RESP 18; TEMP 98
== END 2018-12-02 00:02 | disposition home or self-care (01) ==
LOC: EC 20:30
DX: S16.1XXA Strain of muscle, fascia and tendon at neck level, initial encounter (principal); I25.2 Old myocardial infarction; K21.9 Gastro-esophageal reflux disease without esophagitis; G40.909 Epilepsy, unspecified, not intractable, without status epilepticus; F31.9 Bipolar disorder, unspecified; F90.9 Attention-deficit hyperactivity disorder, unspecified type; F41.9 Anxiety disorder, unspecified; Z79.899 Other long term (current) drug therapy; Z88.1 Allergy status to other antibiotic agents; Z88.5 Allergy status to narcotic agent; Z88.2 Allergy status to sulfonamides; Z88.8 Allergy status to other drugs, medicaments and biological substances; Z91.012 Allergy to eggs; Z88.7 Allergy status to serum and vaccine; Z87.891 Personal history of nicotine dependence; X58.XXXA Exposure to other specified factors, initial encounter
CPT/HCPCS: 72050; 72125; 99284

== ENCOUNTER 2018-12-08 09:25 | Emergency (ER) | payer OTHER ==
[2018-12-08 09:39] VITALS: RESP 18
[2018-12-08] MEDS ORDERED: methylPREDNISolone SOD SUCCI 125 MG/2 ML VIAL IM ONE (10:29)
[2018-12-08] MEDS ORDERED: IPRATROPIUM-ALBUTEROL 3 ML NEB INHALATION STA (10:29)
--- NOTE | 2018-12-08 10:31 | ED ---
URI HPI - General Chief Complaint: Upper Respiratory Infection Stated Complaint: cough Time Seen by Provider: 12/08/18 10:06 Source: patient, RN notes reviewed, old records reviewed Mode of arrival: ambulatory Limitations: no limitations - History of Present Illness Initial Comments: Patient is a 33-year-old female presents emergency Department today with complaints of cough for 4 weeks. Patient reports she was treated earlier with symptoms with antibiotics and steroids. She's been off of them for 3 weeks. Patient denies any fevers or chills. She denies smoking. She reports she's been using inhalers with little relief. - Related Data Home Medications Medication Instructions Recorded Confirmed Atorvastatin [Lipitor] 10 mg PO DAILY 12/14/17 12/08/18 Omeprazole [PriLOSEC] 20 mg PO AC-BID 02/14/18 12/08/18 Ranitidine HCl [Zantac] 300 mg PO DAILY 02/14/18 12/08/18 Metoprolol Tartrate [Lopressor] 12.5 mg PO BID 09/29/18 12/08/18 Topiramate [Topamax] 25 mg PO BID 09/29/18 12/08/18 levETIRAcetam [Keppra] 500 mg PO BID 09/29/18 12/08/18 ARIPiprazole [Abilify] 30 mg PO DAILY 10/09/18 12/08/18 Atomoxetine HCl 40 mg PO DAILY 10/09/18 12/08/18 Escitalopram [Lexapro] 20 mg PO DAILY 10/09/18 12/08/18 guanFACINE HCL [Intuniv] 2 mg PO DAILY 10/09/18 12/08/18 Albuterol Inhaler [Ventolin Hfa 1 - 2 puff INHALATION RT-QID PRN 12/08/18 12/08/18 Inhaler] Albuterol Nebulized [Ventolin 2.5 mg INHALATION RT-QID PRN 12/08/18 12/08/18 Nebulized] Previous Rx's Medication Instructions Recorded Ondansetron Odt [Zofran Odt] 4 mg PO Q8HR PRN #10 tab 03/06/18 Cyclobenzaprine [Flexeril] 10 mg PO TID #20 tab 12/01/18 Ipratropium-Albuterol Nebulize 3 ml INHALATION QID #30 neb 12/08/18 [Duoneb 0.5 mg-3 mg/3 ml Soln] Promethazine/Dextromethorphan 5 ml PO QID #120 ml 12/08/18 [Phenergan DM Syrup] predniSONE 50 mg PO DAILY #7 tab 12/08/18 Allergies Allergy/AdvReac Type Severity Reaction Status Date / Time azithromycin Allergy Rash/Hives Verified 12/08/18 10:30 divalproex sodium Allergy "had Verified 12/08/18 10:30 [From Depakote] seizure when coming off" hydrocodone Allergy Rash/Hives Verified 12/08/18 10:30 Quinolones Allergy Rash/Hives Verified 12/08/18 10:30 sulfamethoxazole Allergy Rash/Hives Verified 12/08/18 10:30 [From Bactrim] tramadol Allergy Rash/Hives Verified 12/08/18 10:30 trimethoprim [From Bactrim] Allergy Rash/Hives Verified 12/08/18 10:30 codeine AdvReac Vertigo Verified 12/08/18 10:30 diphenhydramine HCl AdvReac Rapid Verified 12/08/18 10:30 [From Benadryl] Heart Rate egg AdvReac Nausea & Verified 12/08/18 10:30 Vomiting Influenza Virus Vaccines AdvReac Nausea & Verified 12/08/18 10:30 Vomiting Review of Systems ROS Statement: Those systems with pertinent positive or pertinent negative responses have been documented in the HPI. ROS Other: All systems not noted in ROS Statement are negative. Past Medical History Past Medical History: Asthma, Chest Pain / Angina, GERD/Reflux, Myocardial Infarction ([place]), Seizure Disorder, Syncope Additional Past Medical History / Comment(s): migraines, last seizure 4 months ago [place] x 2, low blood pressures, irregular heart beat, tachycardia, Last Myocardial Infarction Date:: 10/2016 History of Any Multi-Drug Resistant Organisms: None Reported Past Surgical History: Cholecystectomy, Tubal Ligation Additional Past Surgical History / Comment(s): Tilt table test, wisdom teeth extraction. Past Anesthesia/Blood Transfusion Reactions: Previous Problems w/ Anesthesia Additional Past Anesthesia/Blood Transfusion Reaction / Comment(s): "I get anxious when I wake up when my fiance is not there" Past Psychological History: ADD/ADHD, Anxiety, Bipolar, Depression, PTSD Smoking Status: Former smoker Past Alcohol Use History: None Reported Past Drug Use History: None Reported, Heroin - Past Family History Father Family Medical History: Cancer Additional Family Medical History / Comment(s): Father at age 61 from lung CA Mother Family Medical History: No Reported History, Seizure Disorder Additional Family Medical History / Comment(s): Mother is alive with history of bipolar/schitzophrenia Brother(s) Additional Family Medical History / Comment(s): She has one half brother that abuses cocaine and methamphetamines. She does not have any contact with him. Patient has 1 sister with no major medical problems. Patient does not have any children. General Exam - General Exam Comments Initial Comments: This is a 33-year-old female. Alert and oriented 3. Patient appears in no significant distress. General: Well appearing, well nourished, in no distress. Oriented x 3, normal mood and affect . Ambulating without difficulty. Skin: Good turgor, no rash, unusual bruising or prominent lesions Hair: Normal texture and distribution. HEENT: Head: Normocephalic, atraumatic, no visible or palpable masses, depressions, or scaring. Eyes: Visual acuity intact, conjunctiva clear, sclera non-icteric, EOM intact, PERRL. Ears: EACs clear, TMs translucent & cone of light visualized. hearing intact. Nose: No external lesions, mucosa non-inflamed, septum and turbinates normal Mouth: Mucous membranes moist, no mucosal lesions. Teeth/Gums: No obvious caries or periodontal disease. No gingival inflammation or significant resorption. Pharynx: Mucosa non-inflamed, no tonsillar hypertrophy or exudate Neck: Supple, without lesions, bruits, or adenopathy, thyroid non-enlarged and non-tender Heart: No cardiomegaly or thrills; regular rate and rhythm, no murmur or gallop Lungs: Wheezing noted to the right lower lung field. Abdomen: Bowel sounds normal, no tenderness, organomegaly, masses, or hernia Extremities: No amputations or deformities, cyanosis, edema or varicosities, peripheral pulses intact Musculoskeletal: Normal gait and station. No misalignment, asymmetry, crepitation, defects, tenderness, masses, effusions, decreased range of motion, instability, atrophy or abnormal strength or tone in the head, neck, spine, ribs , pelvis or extremities. Neurologic: CN 2-12 normal. Sensation to pain, touch, and proprioception normal. DTRs normal in upper and lower extremities. No pathologic reflexes. Psychiatric: Oriented X3, intact recent and remote memory, judgment and insight, normal mood and affect. Limitations: no limitations Course Vital Signs 12/08/18 12/08/18 09:36 11:23 Temperature 97.8 F Pulse Rate 105 H 100 Respiratory 18 Rate Blood Pressure 103/72 O2 Sat by Pulse 98 Oximetry Medical Decision Making - Medical Decision Making This is a 33-year-old female presents emergency department today with cough congestion for 4 weeks. She's been on steroids and antibiotics including azithromycin and doxycycline. At this time Patient reports she has not been on antibiotic for past 3 weeks. This time Patient has had a slight wheeze on the right side Patient is given DuoNeb treatment and IM Solu-Medrol. Chest x-rays reviewed and negative for any acute cardiac process. This I will treat the Patient for bronchitis with she was steroid. Discussion is follow-up with pulmonology. All questions were answered and return parameters were discussed. - Radiology Data Radiology results: report reviewed Chest x-ray is negative for any acute croup on a process. Disposition Clinical Impression: Bronchitis Disposition: HOME SELF-CARE Condition: Good Instructions (If sedation given, give patient instructions): Acute Bronchitis (ED) Additional Instructions: Patient denies". With primary care physician. Patient should return to the emergency department if any alarming signs or symptoms occur. Patient should follow-up with charter coordinator. Take the steroids as prescribed and use cough syrup and inhaler for breathing treatment as directed. Prescriptions: Ipratropium-Albuterol Nebulize [Duoneb 0.5 mg-3 mg/3 ml Soln] 3 ml INHALATION QID #30 neb Promethazine/Dextromethorphan [Phenergan DM Syrup] 5 ml PO QID #120 ml predniSONE 50 mg PO DAILY #7 tab Is patient prescribed a controlled substance at d/c from ED?: No Referrals: Cecile Wright MD [Primary Care Provider] - 1-2 days Time of Disposition: 11:35
--- NOTE | 2018-12-08 11:29 | XR ---
EXAMINATION TYPE: XR chest 2V DATE OF EXAM: 12/08/2018 COMPARISON: 11/23/2018 HISTORY: 33-year-old female with pain and persistent cough TECHNIQUE: PA and lateral views FINDINGS: The cardiomediastinal silhouette, aorta, and pulmonary vasculature are within normal limits. Lungs an d pleural spaces are clear. IMPRESSION: No acute cardiopulmonary process.
[2018-12-08 11:54] VITALS: BP 98/70; PULSE 102; TEMP 98.9
== END 2018-12-08 11:53 | disposition home or self-care (01) ==
LOC: EC 09:25
DX: J45.909 Unspecified asthma, uncomplicated (principal); K21.9 Gastro-esophageal reflux disease without esophagitis; I25.2 Old myocardial infarction; G40.909 Epilepsy, unspecified, not intractable, without status epilepticus; F31.9 Bipolar disorder, unspecified; F90.9 Attention-deficit hyperactivity disorder, unspecified type; F43.10 Post-traumatic stress disorder, unspecified; Z87.891 Personal history of nicotine dependence; Z79.899 Other long term (current) drug therapy; Z88.7 Allergy status to serum and vaccine; Z88.1 Allergy status to other antibiotic agents; Z88.2 Allergy status to sulfonamides; Z88.5 Allergy status to narcotic agent; Z91.012 Allergy to eggs; Z88.8 Allergy status to other drugs, medicaments and biological substances
CPT/HCPCS: 94640; 71046; 99284; 96372; J2930

== ENCOUNTER 2018-12-23 10:20 | Emergency (ER) | payer OTHER ==
[2018-12-23] MEDS ORDERED: predniSONE 20 MG TAB PO STA (11:42)
--- NOTE | 2018-12-23 11:48 | ED ---
URI HPI - General Chief Complaint: Upper Respiratory Infection Stated Complaint: Cough/sore throat Time Seen by Provider: 12/23/18 10:53 Source: patient Mode of arrival: ambulatory Limitations: no limitations - History of Present Illness Initial Comments: 33-year-old female who is in today for chief complaint of cough 1. Patient states she is a nonsmoker, she states she stopped being 2 months ago. Patient states that she has had the same cough the past month. Patient states she has clear phlegm. Patient denies difficulty breathing or swelling denies dyspnea, dyspnea on exertion, chest pain. Patient denies back pain and headache nausea. Patient states she coughs so hard this morning she gagged and had a small amount of vomit denies hematemesis. Patient denies abdominal pain, , diarrhea, fever or chills. Remaining review of systems negative, patient denies any recent numbness or tingling, dysuria or hematuria, constipation or diarrhea, headaches or visual changes, or any other complaints. Upon arrival patient appears well, no acute distress. Dry cough, no distinct pattern. - Related Data Home Medications Medication Instructions Recorded Confirmed Atorvastatin [Lipitor] 10 mg PO DAILY 12/14/17 12/08/18 Omeprazole [PriLOSEC] 20 mg PO AC-BID 02/14/18 12/08/18 Ranitidine HCl [Zantac] 300 mg PO DAILY 02/14/18 12/08/18 Metoprolol Tartrate [Lopressor] 12.5 mg PO BID 09/29/18 12/08/18 Topiramate [Topamax] 25 mg PO BID 09/29/18 12/08/18 levETIRAcetam [Keppra] 500 mg PO BID 09/29/18 12/08/18 ARIPiprazole [Abilify] 30 mg PO DAILY 10/09/18 12/08/18 Atomoxetine HCl 40 mg PO DAILY 10/09/18 12/08/18 Escitalopram [Lexapro] 20 mg PO DAILY 10/09/18 12/08/18 guanFACINE HCL [Intuniv] 2 mg PO DAILY 10/09/18 12/08/18 Albuterol Inhaler [Ventolin Hfa 1 - 2 puff INHALATION RT-QID PRN 12/08/18 12/08/18 Inhaler] Albuterol Nebulized [Ventolin 2.5 mg INHALATION RT-QID PRN 12/08/18 12/08/18 Nebulized] Previous Rx's Medication Instructions Recorded Ondansetron Odt [Zofran Odt] 4 mg PO Q8HR PRN #10 tab 03/06/18 Cyclobenzaprine [Flexeril] 10 mg PO TID #20 tab 12/01/18 Ipratropium-Albuterol Nebulize 3 ml INHALATION QID #30 neb 12/08/18 [Duoneb 0.5 mg-3 mg/3 ml Soln] Promethazine/Dextromethorphan 5 ml PO QID #120 ml 12/08/18 [Phenergan DM Syrup] predniSONE 50 mg PO DAILY #7 tab 12/08/18 Albuterol Inhaler [Ventolin Hfa 1 - 2 puff INHALATION RT-Q6H PRN 7 12/23/18 Inhaler] Days #1 inhaler predniSONE 20 mg PO DAILY 5 Days #5 tab 12/23/18 Allergies Allergy/AdvReac Type Severity Reaction Status Date / Time azithromycin Allergy Rash/Hives Verified 12/23/18 10:41 divalproex sodium Allergy "had Verified 12/23/18 10:41 [From Depakote] seizure when coming off" hydrocodone Allergy Rash/Hives Verified 12/23/18 10:41 Quinolones Allergy Rash/Hives Verified 12/23/18 10:41 sulfamethoxazole Allergy Rash/Hives Verified 12/23/18 10:41 [From Bactrim] tramadol Allergy Rash/Hives Verified 12/23/18 10:41 trimethoprim [From Bactrim] Allergy Rash/Hives Verified 12/23/18 10:41 codeine AdvReac Vertigo Verified 12/23/18 10:41 diphenhydramine HCl AdvReac Rapid Verified 12/23/18 10:41 [From Benadryl] Heart Rate egg AdvReac Nausea & Verified 12/23/18 10:41 Vomiting Influenza Virus Vaccines AdvReac Nausea & Verified 12/23/18 10:41 Vomiting Review of Systems ROS Statement: Those systems with pertinent positive or pertinent negative responses have been documented in the HPI. ROS Other: All systems not noted in ROS Statement are negative. Past Medical History Past Medical History: Asthma, Chest Pain / Angina, GERD/Reflux, Myocardial Infarction ([place]), Seizure Disorder, Syncope Additional Past Medical History / Comment(s): migraines, last seizure 4 months ago [place] x 2, low blood pressures, irregular heart beat, tachycardia, Last Myocardial Infarction Date:: 10/2016 History of Any Multi-Drug Resistant Organisms: None Reported Past Surgical History: Cholecystectomy, Tubal Ligation Additional Past Surgical History / Comment(s): Tilt table test, wisdom teeth extraction. Past Anesthesia/Blood Transfusion Reactions: Previous Problems w/ Anesthesia Additional Past Anesthesia/Blood Transfusion Reaction / Comment(s): "I get anxious when I wake up when my fiance is not there" Past Psychological History: ADD/ADHD, Anxiety, Bipolar, Depression, PTSD Smoking Status: Former smoker Past Alcohol Use History: None Reported Past Drug Use History: None Reported, Heroin - Past Family History Father Family Medical History: Cancer Additional Family Medical History / Comment(s): Father at age 61 from lung CA Mother Family Medical History: No Reported History, Seizure Disorder Additional Family Medical History / Comment(s): Mother is alive with history of bipolar/schitzophrenia Brother(s) Additional Family Medical History / Comment(s): She has one half brother that abuses cocaine and methamphetamines. She does not have any contact with him. Patient has 1 sister with no major medical problems. Patient does not have any children. General Exam - General Exam Comments Initial Comments: General: The patient is awake and alert, in no distress, and does not appear acutely ill. Eye: +3 mm pupils are equal, round and reactive to light, extra-ocular movements are intact. No nystagmus. There is normal conjunctiva bilaterally. No signs of icterus. No photophobia Ears, nose, mouth and throat: There are moist mucous membranes and no oral lesions. Oropharynx was not erythematous there is no tonsillar enlargement exudates or lesions. Uvula midline. Tympanic membranes are not erythematous or is no effusions bulging or retraction. No tenderness to palpation of the mastoid. No anterior cervical lymphadenopathy. Rhinorrhea, clear and bilateral nares. No tripoding, no drooling. Neck: The neck is supple, there is no tenderness or JVD. No nuchal rigidity negative Brudzinski and Kernig Cardiovascular: There is a regular rate and rhythm. No murmur, rub or gallop is appreciated. Respiratory: Lungs are clear to auscultation, respirations are non-labored, breath sounds are equal. No wheezes, stridor, rales, or rhonchi. No retractions or abdominal breathing. Dry cough Gastrointestinal: Soft, non-distended, non-tender abdomen without masses or organomegaly noted. There is no rebound or guarding present. Bowel sounds are unremarkable. Musculoskeletal: Normal ROM, no tenderness. Strength 5/5. Sensation intact. Radial pulses equal bilaterally 2+. Neurological: A&O x 3. CN II-XII intact, There are no obvious motor or sensory deficits. Coordination appears grossly intact. Speech appears normal, no muffling. Skin: Skin is warm and dry and no rashes or lesions are noted. No extremity edema Psychiatric: Cooperative Limitations: no limitations Course Vital Signs 12/23/18 12/23/18 10:34 12:48 Temperature 98.7 F 98.2 F Pulse Rate 106 H 108 H Respiratory 16 20 Rate Blood Pressure 106/82 107/78 O2 Sat by Pulse 100 95 Oximetry Medical Decision Making - Medical Decision Making Well-appearing 33-year-old female, actually well on room air is no signs of acute distress. Dry cough on history taking as well as examination. Lungs are clear to auscultation. Patient complaining of cough 1 month. There is no specific characteristic. Patient has an inhaler at home. Patient states she has quit smoking for the past 3 months. Chest x-ray revealed no acute cardiopulmonary process no focal consolidation. Patient denies fever, afebrile upon arrival. Influenza testing negative. This time feel patient is stable for discharge was administered treatment for bronchitis. Patient was provided additional inhaler, and steroids. Return parameters were discussed at length the patient who verbalized understanding. Patient discharged appearing well. Agreeable with discharge, f/u care, return parameters and treatment. - Lab Data Lab Results 12/23/18 Range/Units 11:13 Influenza Type A RNA Not Detected (Not Detectd) Influenza Type B (PCR) Not Detected (Not Detectd) Disposition Clinical Impression: Bronchitis Disposition: HOME SELF-CARE Condition: Good Instructions (If sedation given, give patient instructions): Upper Respiratory Infection (ED), Acute Bronchitis (ED) Additional Instructions: Please use medication as discussed. Please follow-up with family doctor in the next 2 days.. Please return to emergency room if the symptoms increase or worsen or for any other concerns. Prescriptions: predniSONE 20 mg PO DAILY 5 Days #5 tab Albuterol Inhaler [Ventolin Hfa Inhaler] 1 - 2 puff INHALATION RT-Q6H PRN 7 Days #1 inhaler PRN Reason: Wheezing Is patient prescribed a controlled substance at d/c from ED?: No Referrals: None,Stated [Primary Care Provider] - 1-2 days [facility] [[facility]] - 1-2 days Time of Disposition: 12:37
--- NOTE | 2018-12-23 12:26 | XR ---
EXAMINATION TYPE: XR chest 2V DATE OF EXAM: 12/23/2018 COMPARISON: 12/08/2018 HISTORY: 33-year-old female with cough TECHNIQUE: PA and lateral views FINDINGS: Heart normal size. Aorta and pulmonary vasculature within normal limits. No consolidation or pleural effusion seen. Gentle undulation of the thoracic spine. IMPRESSION: No acute cardiopulmonary process.
[2018-12-23 12:54] VITALS: BP 107/78; PULSE 108; RESP 20; TEMP 98.2
== END 2018-12-23 12:54 | disposition home or self-care (01) ==
LOC: EC 10:20
DX: J40 Bronchitis, not specified as acute or chronic (principal); K21.9 Gastro-esophageal reflux disease without esophagitis; I25.2 Old myocardial infarction; G40.909 Epilepsy, unspecified, not intractable, without status epilepticus; G43.909 Migraine, unspecified, not intractable, without status migrainosus; F90.9 Attention-deficit hyperactivity disorder, unspecified type; F41.9 Anxiety disorder, unspecified; F32.9 Major depressive disorder, single episode, unspecified; F43.10 Post-traumatic stress disorder, unspecified; Z87.891 Personal history of nicotine dependence; Z79.899 Other long term (current) drug therapy; Z88.1 Allergy status to other antibiotic agents; Z88.8 Allergy status to other drugs, medicaments and biological substances; Z88.5 Allergy status to narcotic agent; Z88.2 Allergy status to sulfonamides; Z91.012 Allergy to eggs; Z88.7 Allergy status to serum and vaccine
CPT/HCPCS: 71046; 87502; 99283

== ENCOUNTER 2019-01-08 17:13 | Emergency (ER) | payer OTHER ==
[2019-01-08 17:25] VITALS: RESP 18; TEMP 98.3
[2019-01-08] MEDS ORDERED: IPRATROPIUM-ALBUTEROL 3 ML NEB INHALATION STA (18:02)
--- NOTE | 2019-01-08 18:32 | ED ---
General Adult HPI - General Chief complaint: Upper Respiratory Infection Stated complaint: SOB, cough Time Seen by Provider: 01/08/19 17:35 Source: patient, RN notes reviewed Mode of arrival: ambulatory Limitations: no limitations - History of Present Illness Initial comments: 33-year-old female presents to the emergency department for a chief complaint of cough. Patient states she has had a productive cough for about 6 weeks. States she does have a history of asthma and has been on multiple rounds of steroids for this without improvement. States she gets coughing so hard she developed some shortness of breath during coughing exacerbations. Denies baseline shortness of breath. Denies any chest pain. Denies any fevers. Patient has had 3 chest x-rays here in the past 6 weeks as well as tested negative for influenza. All chest x-rays were negative for acute process. Patient has no other complaints at this time including shortness of breath, chest pain, abdominal pain, nausea or vomiting, headache, or visual changes. - Related Data Home Medications Medication Instructions Recorded Confirmed Atorvastatin [Lipitor] 10 mg PO DAILY 12/14/17 01/08/19 Omeprazole [PriLOSEC] 20 mg PO AC-BID 02/14/18 01/08/19 Ranitidine HCl [Zantac] 300 mg PO DAILY 02/14/18 01/08/19 Metoprolol Tartrate [Lopressor] 12.5 mg PO BID 09/29/18 01/08/19 Topiramate [Topamax] 25 mg PO BID 09/29/18 01/08/19 levETIRAcetam [Keppra] 500 mg PO BID 09/29/18 01/08/19 ARIPiprazole [Abilify] 30 mg PO DAILY 10/09/18 01/08/19 Atomoxetine HCl 40 mg PO DAILY 10/09/18 01/08/19 Escitalopram [Lexapro] 20 mg PO DAILY 10/09/18 01/08/19 guanFACINE HCL [Intuniv] 2 mg PO DAILY 10/09/18 01/08/19 Albuterol Inhaler [Ventolin Hfa 1 - 2 puff INHALATION RT-QID PRN 12/08/18 01/08/19 Inhaler] Albuterol Nebulized [Ventolin 2.5 mg INHALATION RT-QID PRN 12/08/18 01/08/19 Nebulized] Ipratropium-Albuterol Nebulize 3 ml INHALATION RT-QID 01/08/19 01/08/19 [Duoneb 0.5 mg-3 mg/3 ml Soln] Previous Rx's Medication Instructions Recorded Ondansetron Odt [Zofran Odt] 4 mg PO Q8HR PRN #10 tab 03/06/18 Cyclobenzaprine [Flexeril] 10 mg PO TID #20 tab 12/01/18 Promethazine/Dextromethorphan 5 ml PO QID #120 ml 12/08/18 [Phenergan DM Syrup] predniSONE 50 mg PO DAILY #7 tab 12/08/18 Doxycycline [Vibramycin] 100 mg PO BID #20 cap 01/08/19 guaiFENesin [Mucinex] 600 mg PO Q12HR PRN #20 tablet.er 01/08/19 Allergies Allergy/AdvReac Type Severity Reaction Status Date / Time azithromycin Allergy Rash/Hives Verified 01/08/19 17:39 divalproex sodium Allergy "had Verified 01/08/19 17:39 [From Depakote] seizure when coming off" hydrocodone Allergy Rash/Hives Verified 01/08/19 17:39 Quinolones Allergy Rash/Hives Verified 01/08/19 17:39 sulfamethoxazole Allergy Rash/Hives Verified 01/08/19 17:39 [From Bactrim] tramadol Allergy Rash/Hives Verified 01/08/19 17:39 trimethoprim [From Bactrim] Allergy Rash/Hives Verified 01/08/19 17:39 codeine AdvReac Vertigo Verified 01/08/19 17:39 diphenhydramine HCl AdvReac Rapid Verified 01/08/19 17:39 [From Benadryl] Heart Rate egg AdvReac Nausea & Verified 01/08/19 17:39 Vomiting Influenza Virus Vaccines AdvReac Nausea & Verified 01/08/19 17:39 Vomiting Review of Systems ROS Statement: Those systems with pertinent positive or pertinent negative responses have been documented in the HPI. ROS Other: All systems not noted in ROS Statement are negative. Past Medical History Past Medical History: Asthma, Chest Pain / Angina, GERD/Reflux, Myocardial Infarction ([place]), Seizure Disorder, Syncope Additional Past Medical History / Comment(s): migraines, last seizure 4 months ago [place] x 2, low blood pressures, irregular heart beat, tachycardia, Last Myocardial Infarction Date:: 10/2016 History of Any Multi-Drug Resistant Organisms: None Reported Past Surgical History: Cholecystectomy, Tubal Ligation Additional Past Surgical History / Comment(s): Tilt table test, wisdom teeth extraction. Past Anesthesia/Blood Transfusion Reactions: Previous Problems w/ Anesthesia Additional Past Anesthesia/Blood Transfusion Reaction / Comment(s): "I get anxious when I wake up when my fiance is not there" Past Psychological History: ADD/ADHD, Anxiety, Bipolar, Depression, PTSD Smoking Status: Former smoker Past Alcohol Use History: None Reported Past Drug Use History: None Reported, Heroin - Past Family History Father Family Medical History: Cancer Additional Family Medical History / Comment(s): Father at age 61 from lung [place] Mother Family Medical History: No Reported History, Seizure Disorder Additional Family Medical History / Comment(s): Mother is alive with history of bipolar/schitzophrenia Brother(s) Additional Family Medical History / Comment(s): She has one half brother that abuses cocaine and methamphetamines. She does not have any contact with him. Patient has 1 sister with no major medical problems. Patient does not have any children. General Exam Limitations: no limitations General appearance: alert, in no apparent distress Head exam: Present: atraumatic, normocephalic, normal inspection Eye exam: Present: normal appearance, PERRL, EOMI. Absent: scleral icterus, conjunctival injection, periorbital swelling ENT exam: Present: normal exam, mucous membranes moist Neck exam: Present: normal inspection, full ROM. Absent: tenderness, meningismus, lymphadenopathy Respiratory exam: Present: decreased breath sounds (Diminished lung sounds bilaterally). Absent: respiratory distress, wheezes, rales, rhonchi, stridor Cardiovascular Exam: Present: regular rate, normal rhythm, normal heart sounds. Absent: systolic murmur, diastolic murmur, rubs, gallop, clicks Neurological exam: Present: alert, oriented X3, CN II-XII intact Psychiatric exam: Present: normal affect, normal mood Course Vital Signs 01/08/19 17:23 Temperature 98.3 F Pulse Rate 76 Respiratory 18 Rate Blood Pressure 100/68 O2 Sat by Pulse 97 Oximetry Medical Decision Making - Medical Decision Making 33-year-old female with a past medical history of asthma presents to the emergency department for a chief of productive cough 6 weeks. Patient has been on multiple rounds of steroids for this without improvement. She has received 3 chest x-rays in the past 6 weeks which did not show lobar pneumonia. Patient tested negative for influenza. Vitals are stable. Patient is well-appearing, does not appear short of breath. Patient denies baseline shortness of breath or chest pain. On exam she does have somewhat diminished breath sounds but refuses breathing treatment stating she has can do this at home. Patient states she has not yet had an antibiotic for this and believes this is what she needs. Patient is ALLERGIC to azithromycin so was given doxycycline. Patient was given referral to pulmonology as well. Patient is in agreement with treatment plan it is painful for referral. Patient will return here if she has any worsening symptoms. Disposition Clinical Impression: Cough Disposition: HOME SELF-CARE Condition: Good Instructions (If sedation given, give patient instructions): Upper Respiratory Infection (ED) Additional Instructions: Please take antibiotic as directed. Please continue breathing treatments at home. Follow-up with primary care and pulmonology in one to 2 days. Return here if you have any worsening symptoms. Prescriptions: guaiFENesin [Mucinex] 600 mg PO Q12HR PRN #20 tablet.er PRN Reason: Cough Doxycycline [Vibramycin] 100 mg PO BID #20 cap Is patient prescribed a controlled substance at d/c from ED?: No Referrals: Cecile Wright MD [REFERRING] - 1-2 days Sarah Steiner MD [STAFF PHYSICIAN] - 1-2 days Time of Disposition: 18:31
[2019-01-08 18:50] VITALS: BP 131/72; PULSE 72
== END 2019-01-08 18:49 | disposition home or self-care (01) ==
LOC: EC 17:13
DX: R05 Cough (principal); R09.89 Other specified symptoms and signs involving the circulatory and respiratory systems; R06.02 Shortness of breath; J45.909 Unspecified asthma, uncomplicated; K21.9 Gastro-esophageal reflux disease without esophagitis; I25.2 Old myocardial infarction; G40.909 Epilepsy, unspecified, not intractable, without status epilepticus; F31.9 Bipolar disorder, unspecified; F41.9 Anxiety disorder, unspecified; F90.9 Attention-deficit hyperactivity disorder, unspecified type; Z87.891 Personal history of nicotine dependence; Z88.1 Allergy status to other antibiotic agents; Z88.2 Allergy status to sulfonamides; Z88.5 Allergy status to narcotic agent; Z88.7 Allergy status to serum and vaccine; Z88.8 Allergy status to other drugs, medicaments and biological substances; Z91.012 Allergy to eggs; Z79.899 Other long term (current) drug therapy; Z86.69 Personal history of other diseases of the nervous system and sense organs; Z80.1 Family history of malignant neoplasm of trachea, bronchus and lung; Z53.20 Procedure and treatment not carried out because of patient's decision for unspecified reasons
CPT/HCPCS: 99284

== ENCOUNTER 2019-09-29 21:26 | Emergency (ER) | payer OTHER ==
--- NOTE | 2019-09-29 22:07 | ED ---
Chest Pain HPI - General Chief Complaint: Chest Pain Stated Complaint: Chest Pain Time Seen by Provider: 09/29/19 22:06 Source: EMS Mode of arrival: EMS Limitations: no limitations - History of Present Illness Initial Comments: Patient is a 34-year-old woman who presents to the hospital to be evaluated for left-sided chest pain. She states this came on couple of hours ago while she was sitting on a couch watching TV. She indicates left upper chest. She states pain is sharp, constant, and she has not noted worsening or relieving factors. 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 Patient denies any associated symptoms. MD Complaint: chest pain -: hour(s) Onset: during rest Pain Location: left chest Pain Radiation: none Severity: moderate Quality: sharp Consistency: constant Improves With: nothing Worsens With: nothing Treatments Prior to Arrival: none - Related Data On Oral Contraceptives: No Home Medications Medication Instructions Recorded Confirmed Metoprolol Tartrate [Lopressor] 25 mg PO BID 09/29/18 09/29/19 ARIPiprazole [Abilify] 20 mg PO DAILY 09/29/19 09/29/19 Aspirin EC [Ecotrin Low Dose] 81 mg PO DAILY 09/29/19 09/29/19 Citalopram Hydrobromide [CeleXA] 40 mg PO DAILY 09/29/19 09/29/19 Famotidine [Pepcid] 20 mg PO DAILY 09/29/19 09/29/19 Lacosamide [Vimpat] 100 mg PO BID 09/29/19 09/29/19 OXcarbazepine [Trileptal] 600 mg PO BID 09/29/19 09/29/19 Topiramate [Topamax] 50 mg PO BID 09/29/19 09/29/19 Previous Rx's Medication Instructions Recorded Metoprolol Tartrate [Lopressor] 12.5 mg PO BID #20 dose 09/30/19 Allergies Allergy/AdvReac Type Severity Reaction Status Date / Time azithromycin Allergy Rash/Hives Verified 09/29/19 22:38 divalproex sodium Allergy "had Verified 09/29/19 22:38 [From Depakote] seizure when coming off" hydrocodone Allergy Rash/Hives Verified 09/29/19 22:38 Quinolones Allergy Rash/Hives Verified 09/29/19 22:38 sulfamethoxazole Allergy Rash/Hives Verified 09/29/19 22:38 [From Bactrim] tramadol Allergy Rash/Hives Verified 09/29/19 22:38 trimethoprim [From Bactrim] Allergy Rash/Hives Verified 09/29/19 22:38 codeine AdvReac Vertigo Verified 09/29/19 22:38 diphenhydramine HCl AdvReac Rapid Verified 09/29/19 22:38 [From Benadryl] Heart Rate egg AdvReac Nausea & Verified 09/29/19 22:38 Vomiting Influenza Virus Vaccines AdvReac Nausea & Verified 09/29/19 22:38 Vomiting Review of Systems ROS Statement: Those systems with pertinent positive or pertinent negative responses have been documented in the HPI. ROS Other: All systems not noted in ROS Statement are negative. Constitutional: Denies: fever, chills Respiratory: Denies: cough, dyspnea Cardiovascular: Reports: as per HPI, chest pain. Denies: palpitations, orthopnea, edema, syncope Gastrointestinal: Denies: abdominal pain, vomiting, diarrhea Genitourinary: Denies: dysuria, hematuria Musculoskeletal: Denies: back pain Skin: Denies: rash Neurological: Denies: headache EKG Findings - EKG Results: EKG: interpreted by HARRY, sinus rhythm (Rate 88 bpm), normal QRS, normal ST/T - Blocks, [place], Hypertrophy, ST Abn: QRS axis and voltage: left axis deviation (-30 to -90) Past Medical History Past Medical History: Asthma, Chest Pain / Angina, GERD/Reflux, Myocardial In farction ([place]), Seizure Disorder, Syncope Additional Past Medical History / Comment(s): migraines, last seizure 4 months ago [place] x 2, low blood pressures, irregular heart beat, tachycardia, Last Myocardial Infarction Date:: 10/2016 History of Any Multi-Drug Resistant Organisms: None Reported Past Surgical History: Cholecystectomy, Tubal Ligation Additional Past Surgical History / Comment(s): Tilt table test, wisdom teeth extraction. Past Anesthesia/Blood Transfusion Reactions: Previous Problems w/ Anesthesia Additional Past Anesthesia/Blood Transfusion Reaction / Comment(s): "I get anxious when I wake up when my fiance is not there" Past Psychological History: ADD/ADHD, Anxiety, Bipolar, Depression, PTSD Smoking Status: Former smoker Past Alcohol Use History: None Reported Past Drug Use History: None Reported, Heroin - Past Family History Father Family Medical History: Cancer Additional Family Medical History / Comment(s): Father at age 61 from lung [place] Mother Family Medical History: No Reported History, Seizure Disorder Additional Family Medical History / Comment(s): Mother is alive with history of bipolar/schitzophrenia Brother(s) Additional Family Medical History / Comment(s): She has one half brother that abuses cocaine and methamphetamines. She does not have any contact with him. Patient has 1 sister with no major medical problems. Patient does not have any children. General Exam Limitations: no limitations General appearance: alert, in no apparent distress Head exam: Present: atraumatic, normocephalic Eye exam: Present: normal appearance. Absent: scleral icterus, conjunctival injection ENT exam: Present: normal oropharynx, TM's normal bilaterally, normal external ear exam Neck exam: Present: normal inspection, full ROM Respiratory exam: Present: normal lung sounds bilaterally, chest wall tenderness. Absent: respiratory distress, wheezes, rales, rhonchi, stridor, accessory muscle use, decreased breath sounds, prolonged expiratory Cardiovascular Exam: Present: regular rate, normal rhythm, normal heart sounds. Absent: systolic murmur, diastolic murmur, rubs, gallop GI/Abdominal exam: Present: soft. Absent: distended, tenderness, guarding, rebound, rigid, mass Extremities exam: Present: normal inspection, normal capillary refill. Absent: pedal edema, calf tenderness Back exam: Present: normal inspection. Absent: CVA tenderness (R), CVA tenderness (L) Neurological exam: Present: alert Skin exam: Present: warm, dry, intact, normal color. Absent: rash Course Vital Signs 09/29/19 09/29/19 09/30/19 21:28 23:05 00:27 Temperature 98.3 F Pulse Rate 97 89 87 Respiratory 18 16 18 Rate Blood Pressure 99/63 99/62 98/74 O2 Sat by Pulse 97 99 97 Oximetry 09/30/19 01:11 Temperature 97.7 F Pulse Rate 80 Respiratory 16 Rate Blood Pressure 98/75 O2 Sat by Pulse 98 Oximetry Disposition Clinical Impression: Chest pain Disposition: HOME SELF-CARE Condition: Good Instructions (If sedation given, give patient instructions): Chest Pain (ED) Prescriptions: Metoprolol Tartrate [Lopressor] 12.5 mg PO BID #20 dose Is patient prescribed a controlled substance at d/c from ED?: No Referrals: [facility] [Primary Care Provider] - 1-2 days
[2019-09-29 23:11] LABS: Basophils # (A) 0.2 k/uL (0-0.2); Basophils % (A) 2 %; Eosinophils # (A) 0.1 k/uL (0-0.7); Eosinophils % (A) 2 %; HCT 41.5 % (34.0-46.0); HGB 13.6 gm/dL (11.4-16.0); Lymphocytes # (A) 3.1 k/uL (1.0-4.8); Lymphocytes % (A) 41 %; MCH 32.4 pg (25.0-35.0); MCHC 32.8 g/dL (31.0-37.0); MCV 98.7 fL (80.0-100.0); Mean Platelet Volume 7.2; Monocytes # (A) 0.6 k/uL (0-1.0); Monocytes % (A) 8 %; Neutrophils # (A) 3.4 k/uL (1.3-7.7); Neutrophils % (A) 44 %; Platelet Count 262 k/uL (150-450); RDW 12.7 % (11.5-15.5); WBC 7.6 k/uL (3.8-10.6)
--- NOTE | 2019-09-29 23:11 | XR ---
EXAMINATION TYPE: XR chest 2V DATE OF EXAM: 09/29/2019 COMPARISON: December 23, 2018 HISTORY: Cough TECHNIQUE: 2 views FINDINGS: Heart and mediastinum are normal. Lungs are clear. Diaphragm is normal. Bony thorax appears normal. There are chest leads. IMPRESSION: Normal chest. No change.
[2019-09-29] MEDS ORDERED: METOPROLOL TARTRATE 25 MG TAB PO STA (23:14)
[2019-09-29] MEDS ORDERED: METOPROLOL TARTRATE 12.5 MG TAB PO STA (23:14)
[2019-09-29 23:27] LABS: D-Dimer 0.23 mg/L FEU (<0.60); Partial Thromboplastin Time 23.4 sec (22.0-30.0); Prothrombin Time 10.8 sec (9.0-12.0)
[2019-09-29 23:34] LABS: Albumin 3.4 g/dL (3.5-5.0); Calcium 8.6 mg/dL (8.4-10.2); Magnesium 1.8 mg/dL (1.6-2.3); Total Bilirubin 0.5 mg/dL (0.2-1.3); Total Protein 6.6 g/dL (6.3-8.2)
[2019-09-29 23:40] LABS: Potassium 4.1 mmol/L (3.5-5.1)
[2019-09-29 23:46] LABS: Amorphous Sediment,Urine Rare /hpf; Appearance,Urine Cloudy (Clear); Bacteria,Urine Rare /hpf; Bilirubin,Urine Negative (Negative); Blood,Urine Negative (Negative); Color,Urine Yellow; Glucose,Urine (UA) Negative (Negative); Ketones,Urine Negative (Negative); Leukocyte Esterase,Urine Small (Negative); Mucus,Urine Moderate /hpf; Nitrite,Urine Negative (Negative); PH, Urine 6.5 (5.0-8.0); Protein,Urine Trace (Negative); RBC,Urine 2 /hpf (0-5); Specific Gravity,Urine 1.018 (1.001-1.035); Squamous Epithelial Cell,Urine 37 /hpf (0-4); Urobilinogen,Urine <2.0 mg/dL (<2.0); WBC,Urine 1 /hpf (0-5)
[2019-09-30] MEDS ORDERED: SODIUM CHLORIDE 0.9% 1,000 ML IV ONE (00:46)
[2019-09-30 01:11] VITALS: TEMP 97.7
[2019-09-30 02:30] VITALS: BP 94/58; PULSE 82; RESP 18
== END 2019-09-30 02:40 | disposition home or self-care (01) ==
LOC: EC 21:26
DX: R07.9 Chest pain, unspecified (principal); G40.909 Epilepsy, unspecified, not intractable, without status epilepticus; K21.9 Gastro-esophageal reflux disease without esophagitis; I25.2 Old myocardial infarction; F41.9 Anxiety disorder, unspecified; F31.9 Bipolar disorder, unspecified; Z79.82 Long term (current) use of aspirin; Z79.899 Other long term (current) drug therapy; Z88.1 Allergy status to other antibiotic agents; Z88.5 Allergy status to narcotic agent; Z88.2 Allergy status to sulfonamides; Z88.8 Allergy status to other drugs, medicaments and biological substances; Z91.012 Allergy to eggs; Z88.7 Allergy status to serum and vaccine; Z87.891 Personal history of nicotine dependence
CPT/HCPCS: 36415; 71046; 80053; 81001; 81025; 82150; 83690; 83735; 84484; 85025; 85379; 85610; 85730; 93005; 96360; 99285

== ENCOUNTER 2019-10-06 18:56 | Emergency (ER) | payer OTHER ==
[2019-10-06] MEDS ORDERED: predniSONE 20 MG TAB PO STA (19:23)
[2019-10-06] MEDS ORDERED: IPRATROPIUM-ALBUTEROL 3 ML NEB INHALATION STA (19:23)
[2019-10-06] MEDS ORDERED: FAMOTIDINE 20 MG TAB PO STA (19:23)
--- NOTE | 2019-10-06 19:55 | ED ---
General Adult HPI - General Chief complaint: Upper Respiratory Infection Stated complaint: Cough Time Seen by Provider: 10/06/19 19:05 Source: patient Mode of arrival: ambulatory Limitations: no limitations - History of Present Illness Initial comments: Patient is 34-year-old female with history of asthma presenting to emergency Department with a chief complaint of a cough. She states the symptoms began about 3 days with a productive cough with yellow sputum production. Patient does report chills but denies any fever. Patient states she does have a nebulizer at home but is missing a piece which did not allow her to get her typical updrafts. Patient also reports mild bilateral otalgia. Does report sinus congestion and a sore throat. Does report some shortness of breath but denies any wheezing or chest pain. Denies any back pain abdominal pain. She does report one episode of posttussive emesis. Denies diarrhea. Patient is concerned that she might be ALLERGIC to cats as she recently moved and with a roommate who has them. - Related Data Home Medications Medication Instructions Recorded Confirmed Metoprolol Tartrate [Lopressor] 25 mg PO BID 09/29/18 09/29/19 ARIPiprazole [Abilify] 20 mg PO DAILY 09/29/19 09/29/19 Aspirin EC [Ecotrin Low Dose] 81 mg PO DAILY 09/29/19 09/29/19 Citalopram Hydrobromide [CeleXA] 40 mg PO DAILY 09/29/19 09/29/19 Famotidine [Pepcid] 20 mg PO DAILY 09/29/19 09/29/19 Lacosamide [Vimpat] 100 mg PO BID 09/29/19 09/29/19 OXcarbazepine [Trileptal] 600 mg PO BID 09/29/19 09/29/19 Topiramate [Topamax] 50 mg PO BID 09/29/19 09/29/19 Previous Rx's Medication Instructions Recorded Metoprolol Tartrate [Lopressor] 12.5 mg PO BID #20 dose 09/30/19 Allergies Allergy/AdvReac Type Severity Reaction Status Date / Time azithromycin Allergy Rash/Hives Verified 10/06/19 19:03 divalproex sodium Allergy "had Verified 10/06/19 19:03 [From Depakote] seizure when coming off" hydrocodone Allergy Rash/Hives Verified 10/06/19 19:03 Quinolones Allergy Rash/Hives Verified 10/06/19 19:03 sulfamethoxazole Allergy Rash/Hives Verified 10/06/19 19:03 [From Bactrim] tramadol Allergy Rash/Hives Verified 10/06/19 19:03 trimethoprim [From Bactrim] Allergy Rash/Hives Verified 10/06/19 19:03 codeine AdvReac Vertigo Verified 10/06/19 19:03 diphenhydramine HCl AdvReac Rapid Verified 10/06/19 19:03 [From Benadryl] Heart Rate egg AdvReac Nausea & Verified 10/06/19 19:03 Vomiting Influenza Virus Vaccines AdvReac Nausea & Verified 10/06/19 19:03 Vomiting Review of Systems ROS Statement: Those systems with pertinent positive or pertinent negative responses have been documented in the HPI. ROS Other: All systems not noted in ROS Statement are negative. Past Medical History Past Medical History: Asthma, Chest Pain / Angina, GERD/Reflux, Myocardial Infarction ([place]), Seizure Disorder, Syncope Additional Past Medical History / Comment(s): migraines, last seizure 4 months ago [place] x 2, low blood pressures, irregular heart beat, tachycardia, Last Myocardial Infarction Date:: 10/2016 History of Any Multi-Drug Resistant Organisms: None Reported Past Surgical History: Cholecystectomy, Tubal Ligation Additional Past Surgical History / Comment(s): Tilt table test, wisdom teeth extraction. Past Anesthesia/Blood Transfusion Reactions: Previous Problems w/ Anesthesia Additional Past Anesthesia/Blood Transfusion Reaction / Comment(s): "I get anxious when I wake up when my fiance is not there" Past Psychological History: ADD/ADHD, Anxiety, Bipolar, Depression, PTSD Smoking Status: Former smoker Past Alcohol Use History: None Reported Past Drug Use History: Heroin - Past Family History Father Family Medical History: Cancer Additional Family Medical History / Comment(s): Father at age 61 from lung [place] Mother Family Medical History: No Reported History, Seizure Disorder Additional Family Medical History / Comment(s): Mother is alive with history of bipolar/schitzophrenia Brother(s) Additional Family Medical History / Comment(s): She has one half brother that abuses cocaine and methamphetamines. She does not have any contact with him. Patient has 1 sister with no major medical problems. Patient does not have any children. General Exam Limitations: no limitations General appearance: alert, in no apparent distress Head exam: Present: atraumatic, normocephalic, normal inspection Eye exam: Present: normal appearance, PERRL, EOMI Pupils: Present: normal accommodation ENT exam: Present: normal exam, normal oropharynx (Uvula midline. No tonsillar exudates or erythema.), mucous membranes moist, TM's normal bilaterally (Unable to visualize bilateral tympanic membranes due to cerumen impaction.), normal external ear exam Neck exam: Present: normal inspection, full ROM Respiratory exam: Present: normal lung sounds bilaterally. Absent: respiratory distress, wheezes Cardiovascular Exam: Present: regular rate, normal rhythm, normal heart sounds GI/Abdominal exam: Present: soft. Absent: distended, tenderness Extremities exam: Present: normal inspection, full ROM Back exam: Present: normal inspection, full ROM Neurological exam: Present: alert, oriented X3 Psychiatric exam: Present: normal affect, normal mood Skin exam: Present: warm, dry, intact, normal color Course Vital Signs 10/06/19 10/06/19 10/06/19 19:00 19:50 20:01 Temperature 97.8 F Pulse Rate 118 H 98 98 Respiratory 20 Rate Blood Pressure 99/64 O2 Sat by Pulse 98 Oximetry Medical Decision Making - Medical Decision Making Patient is a 34-year-old female with history of asthma presenting to the emergency department with a chief complaint of a cough. On examination patient is not in respiratory distress and no wheezing is noted. Patient does a productive cough. Chest x-ray is unremarkable. Patient is negative for influenza. Patient was given a breathing treatment, steroids and Pepcid. I suspect the patient has bronchitis causing a mild case of asthma exacerbation. Patient was given the nebulizer please that she was missing and home to have her scheduled updrafts. Patient is not a smoker. Patient will be treated with a few days of steroids. Patient advised to continue using albuterol home. Vitals are stable. Strict return parameters were thoroughly discussed with patient was understanding and agreeable. Case discussed with physician. - Lab Data Lab Results 10/06/19 Range/Units 20:17 Influenza Type A RNA Not Detected (Not Detectd) Influenza Type B (PCR) Not Detected (Not Detectd) Disposition Clinical Impression: Bronchitis, Asthma exacerbation, mild Disposition: HOME SELF-CARE Condition: Stable Instructions (If sedation given, give patient instructions): Acute Bronchitis (ED) Additional Instructions: Please take prescribed medication as directed. Please follow up with primary care. Please return to emergency department if symptoms worsen. Is patient prescribed a controlled substance at d/c from ED?: No Referrals: [facility] [Primary Care Provider] - 1-2 days Time of Disposition: 21:24
--- NOTE | 2019-10-06 20:15 | XR ---
EXAMINATION TYPE: XR chest 2V DATE OF EXAM: 10/06/2019 COMPARISON: 09/29/2019 HISTORY: Chest pain TECHNIQUE: FINDINGS: Heart is normal. Lungs are clear of infiltrate. Bony thorax is intact. Pulmonary vascularit y is normal. Diaphragm is normal. IMPRESSION: No active cardiopulmonary disease. Normal heart. No change.
[2019-10-06 21:41] VITALS: BP 124/78; PULSE 90; RESP 18; TEMP 98
== END 2019-10-06 21:41 | disposition home or self-care (01) ==
LOC: EC 18:56
DX: J45.901 Unspecified asthma with (acute) exacerbation (principal); H61.23 Impacted cerumen, bilateral; H92.03 Otalgia, bilateral; I20.9 Angina pectoris, unspecified; K21.9 Gastro-esophageal reflux disease without esophagitis; I25.2 Old myocardial infarction; G40.909 Epilepsy, unspecified, not intractable, without status epilepticus; F31.9 Bipolar disorder, unspecified; F41.9 Anxiety disorder, unspecified; Z87.891 Personal history of nicotine dependence; Z88.1 Allergy status to other antibiotic agents; Z88.2 Allergy status to sulfonamides; Z88.5 Allergy status to narcotic agent; Z88.7 Allergy status to serum and vaccine; Z88.8 Allergy status to other drugs, medicaments and biological substances; Z91.012 Allergy to eggs; Z79.82 Long term (current) use of aspirin; Z79.899 Other long term (current) drug therapy; Z86.69 Personal history of other diseases of the nervous system and sense organs; Z80.1 Family history of malignant neoplasm of trachea, bronchus and lung
CPT/HCPCS: 94640; 87502; 71046; 99285; J7512

== ENCOUNTER 2019-11-08 19:28 | Emergency (ER) | payer OTHER ==
[2019-11-08 19:33] VITALS: RESP 18
[2019-11-08] MEDS ORDERED: SODIUM CHLORIDE 0.9% 1,000 ML IV STA (19:48)
[2019-11-08 20:04] LABS: Basophils % (A) 0 %; Eosinophils # (A) 0.2 k/uL (0-0.7); Eosinophils % (A) 2 %; HCT 43.5 % (34.0-46.0); HGB 14.1 gm/dL (11.4-16.0); Lymphocytes # (A) 2.3 k/uL (1.0-4.8); Lymphocytes % (A) 27 %; MCH 31.5 pg (25.0-35.0); MCHC 32.5 g/dL (31.0-37.0); MCV 96.8 fL (80.0-100.0); Mean Platelet Volume 6.7; Monocytes # (A) 0.6 k/uL (0-1.0); Monocytes % (A) 7 %; Neutrophils # (A) 5.2 k/uL (1.3-7.7); Neutrophils % (A) 61 %; Platelet Count 268 k/uL (150-450); RBC 4.49 m/uL (3.80-5.40); RDW 12.7 % (11.5-15.5); WBC 8.5 k/uL (3.8-10.6)
[2019-11-08 20:07] LABS: Amorphous Sediment,Urine Rare /hpf; Appearance,Urine Cloudy (Clear); Bacteria,Urine Rare /hpf; Color,Urine Yellow; Mucus,Urine Moderate /hpf; Protein,Urine 1+ (Negative); RBC,Urine 1 /hpf (0-5); Squamous Epithelial Cell,Urine 32 /hpf (0-4); WBC,Urine 4 /hpf (0-5)
[2019-11-08 20:08] LABS: Bilirubin,Urine Negative (Negative); Blood,Urine Negative (Negative); Glucose,Urine (UA) Negative (Negative); Ketones,Urine Negative (Negative); Leukocyte Esterase,Urine Small (Negative); Nitrite,Urine Negative (Negative); Urobilinogen,Urine <2.0 mg/dL (<2.0)
[2019-11-08 20:14] LABS: ALT 23 U/L (4-34); AST 22 U/L (14-36); African American GFR (CKD) >90 (>60 ml/min/1.73 sqM); Albumin 3.8 g/dL (3.5-5.0); Alkaline Phosphatase 72 U/L (38-126); Amylase 75 U/L (30-110); Anion Gap 6 mmol/L; Blood Urea Nitrogen 15 mg/dL (7-17); Calcium 9.4 mg/dL (8.4-10.2); Carbon Dioxide 21 mmol/L (22-30); Chloride 108 mmol/L (98-107); Glucose 102 mg/dL (74-99); Non-African American GFR(CKD) 81 (>60 ml/min/1.73 sqM); Potassium 3.9 mmol/L (3.5-5.1); Sodium 135 mmol/L (137-145); Total Bilirubin 0.3 mg/dL (0.2-1.3); Total Protein 7.1 g/dL (6.3-8.2)
--- NOTE | 2019-11-08 20:33 | ED ---
General Adult HPI - General Chief complaint: Nausea/Vomiting/Diarrhea Stated complaint: NVD Time Seen by Provider: 11/08/19 19:32 Source: patient, EMS, RN notes reviewed Mode of arrival: EMS Limitations: no limitations - History of Present Illness Initial comments: 34-year-old female well known to this emergency department presents for nausea vomiting diarrhea. Patient states she has been nauseous for about 2 days. She has also had some episodes of diarrhea. She does not have any abdominal pain. Patient states she did vomit twice today. According to EMS when they were picking patient up she got a phone call that her friend would not be coming to the hospital so she almost refused transfer but did ultimately agree to come to the ER. She is denying any fevers or chills.Patient has no other complaints at this time including shortness of breath, chest pain, abdominal pain, headache, or visual changes. - Related Data Home Medications Medication Instructions Recorded Confirmed Metoprolol Tartrate [Lopressor] 25 mg PO BID 09/29/18 09/29/19 ARIPiprazole [Abilify] 20 mg PO DAILY 09/29/19 09/29/19 Aspirin EC [Ecotrin Low Dose] 81 mg PO DAILY 09/29/19 09/29/19 Citalopram Hydrobromide [CeleXA] 40 mg PO DAILY 09/29/19 09/29/19 Famotidine [Pepcid] 20 mg PO DAILY 09/29/19 09/29/19 Lacosamide [Vimpat] 100 mg PO BID 09/29/19 09/29/19 OXcarbazepine [Trileptal] 600 mg PO BID 09/29/19 09/29/19 Topiramate [Topamax] 50 mg PO BID 09/29/19 09/29/19 Previous Rx's Medication Instructions Recorded Metoprolol Tartrate [Lopressor] 12.5 mg PO BID #20 dose 09/30/19 Famotidine [Pepcid] 20 mg PO BID #5 tablet 10/06/19 predniSONE 50 mg PO DAILY #3 tab 10/06/19 Allergies Allergy/AdvReac Type Severity Reaction Status Date / Time azithromycin Allergy Rash/Hives Verified 10/06/19 19:03 divalproex sodium Allergy "had Verified 10/06/19 19:03 [From Depakote] seizure when coming off" hydrocodone Allergy Rash/Hives Verified 10/06/19 19:03 Quinolones Allergy Rash/Hives Verified 10/06/19 19:03 sulfamethoxazole Allergy Rash/Hives Verified 10/06/19 19:03 [From Bactrim] tramadol Allergy Rash/Hives Verified 10/06/19 19:03 trimethoprim [From Bactrim] Allergy Rash/Hives Verified 10/06/19 19:03 codeine AdvReac Vertigo Verified 10/06/19 19:03 diphenhydramine HCl AdvReac Rapid Verified 10/06/19 19:03 [From Benadryl] Heart Rate egg AdvReac Nausea & Verified 10/06/19 19:03 Vomiting Influenza Virus Vaccines AdvReac Nausea & Verified 10/06/19 19:03 Vomiting Review of Systems ROS Statement: Those systems with pertinent positive or pertinent negative responses have been documented in the HPI. ROS Other: All systems not noted in ROS Statement are negative. Past Medical History Past Medical History: Asthma, Chest Pain / Angina, GERD/Reflux, Myocardial Infa rction ([place]), Seizure Disorder, Syncope Additional Past Medical History / Comment(s): migraines, last seizure 4 months ago [place] x 2, low blood pressures, irregular heart beat, tachycardia, Last Myocardial Infarction Date:: 10/2016 History of Any Multi-Drug Resistant Organisms: None Reported Past Surgical History: Cholecystectomy, Tubal Ligation Additional Past Surgical History / Comment(s): Tilt table test, wisdom teeth extraction. Past Anesthesia/Blood Transfusion Reactions: Previous Problems w/ Anesthesia Additional Past Anesthesia/Blood Transfusion Reaction / Comment(s): "I get anxious when I wake up when my fiance is not there" Past Psychological History: ADD/ADHD, Anxiety, Bipolar, Depression, PTSD Smoking Status: Former smoker Past Alcohol Use History: None Reported Past Drug Use History: Heroin - Past Family History Father Family Medical History: Cancer Additional Family Medical History / Comment(s): Father at age 61 from lung CA Mother Family Medical History: No Reported History, Seizure Disorder Additional Family Medical History / Comment(s): Mother is alive with history of bipolar/schitzophrenia Brother(s) Additional Family Medical History / Comment(s): She has one half brother that abuses cocaine and methamphetamines. She does not have any contact with him. Patient has 1 sister with no major medical problems. Patient does not have any children. General Exam Limitations: no limitations General appearance: alert, in no apparent distress Head exam: Present: atraumatic, normocephalic, normal inspection Eye exam: Present: normal appearance, PERRL, EOMI. Absent: scleral icterus, conjunctival injection, periorbital swelling ENT exam: Present: normal exam, mucous membranes moist Neck exam: Present: normal inspection, full ROM. Absent: tenderness, mening ismus, lymphadenopathy Respiratory exam: Present: normal lung sounds bilaterally. Absent: respiratory distress, wheezes, rales, rhonchi, stridor Cardiovascular Exam: Present: regular rate, normal rhythm, normal heart sounds. Absent: systolic murmur, diastolic murmur, rubs, gallop, clicks GI/Abdominal exam: Present: soft, normal bowel sounds. Absent: distended, tenderness (No tenderness of the abdomen abdomen is completely soft.), guarding, rebound, rigid Neurological exam: Present: alert Course Vital Signs 11/08/19 19:30 Temperature 98.5 F Pulse Rate 100 Respiratory 18 Rate Blood Pressure 114/75 O2 Sat by Pulse 98 Oximetry Medical Decision Making - Medical Decision Making Vitals are stable. Physical exam is unremarkable. Patient is sitting up in bed alert and smiling. Knows me by name. She has no abdominal tenderness whatsoever. She has not had any episodes of vomiting here in the emergency department. CBC CMP are unremarkable. Urinalysis is contaminated with squamous cells. Given absolutely no abdominal pain or tenderness imaging was not or dered. Patient may have a viral gastroenteritis. However no episodes of vomiting here in the emergency department. Genia. Patient will be discharged home to follow up with primary care. She'll return here if she has any worsening symptoms. I discussed this case with attending Dr. Yadav who agrees with this assessment and treatment plan. - Lab Data Result diagrams: 11/08/19 19:40 11/08/19 19:40 Lab Results 11/08/19 11/08/19 11/08/19 Range/Units 19:40 19:40 19:40 WBC 8.5 (3.8-10.6) k/uL RBC 4.49 (3.80-5.40) m/uL Hgb 14.1 (11.4-16.0) gm/dL Hct 43.5 (34.0-46.0) % MCV 96.8 (80.0-100.0) fL MCH 31.5 (25.0-35.0) pg MCHC 32.5 (31.0-37.0) g/dL RDW 12.7 (11.5-15.5) % Plt Count 268 (150-450) k/uL Neutrophils % 61 % Lymphocytes % 27 % Monocytes % 7 % Eosinophils % 2 % Basophils % 0 % Neutrophils # 5.2 (1.3-7.7) k/uL Lymphocytes # 2.3 (1.0-4.8) k/uL Monocytes # 0.6 (0-1.0) k/uL Eosinophils # 0.2 (0-0.7) k/uL Basophils # 0.0 (0-0.2) k/uL Sodium 135 L (137-145) mmol/L Potassium 3.9 (3.5-5.1) mmol/L Chloride 108 H (98-107) mmol/L Carbon Dioxide 21 L (22-30) mmol/L Anion Gap 6 mmol/L BUN 15 (7-17) mg/dL Creatinine 0.93 (0.52-1.04) mg/dL Est GFR (CKD-EPI)AfAm >90 (>60 ml/min/1.73 sqM) Est GFR (CKD-EPI)NonAf 81 (>60 ml/min/1.73 sqM) Glucose 102 H (74-99) mg/dL Calcium 9.4 (8.4-10.2) mg/dL Total Bilirubin 0.3 (0.2-1.3) mg/dL AST 22 (14-36) U/L ALT 23 (4-34) U/L Alkaline Phosphatase 72 (38-126) U/L Total Protein 7.1 (6.3-8.2) g/dL Albumin 3.8 (3.5-5.0) g/dL Amylase 75 (30-110) U/L Lipase 243 (23-300) U/L Urine Color Urine Appearance (Clear) Urine pH (5.0-8.0) Ur Specific Philipp (1.001-1.035) Urine Protein (Negative) Urine Glucose (UA) (Negative) Urine Ketones (Negative) Urine Blood (Negative) Urine Nitrite (Negative) Urine Bilirubin (Negative) Urine Urobilinogen (<2.0) mg/dL Ur Leukocyte Esterase (Negative) Urine RBC (0-5) /hpf Urine WBC (0-5) /hpf Ur Squamous Epith Cells (0-4) /hpf Amorphous Sediment (None) /hpf Urine Bacteria (None) /hpf Urine Mucus (None) /hpf Urine HCG, Qual Not Detected (Not Detectd) Influenza Type A RNA (Not Detectd) Influenza Type B (PCR) (Not Detectd) 11/08/19 11/08/19 Range/Units 19:40 19:40 WBC (3.8-10.6) k/uL RBC (3.80-5.40) m/uL Hgb (11.4-16.0) gm/dL Hct (34.0-46.0) % MCV (80.0-100.0) fL MCH (25.0-35.0) pg MCHC (31.0-37.0) g/dL RDW (11.5-15.5) % Plt Count (150-450) k/uL Neutrophils % % Lymphocytes % % Monocytes % % Eosinophils % % Basophils % % Neutrophils # (1.3-7.7) k/uL Lymphocytes # (1.0-4.8) k/uL Monocytes # (0-1.0) k/uL Eosinophils # (0-0.7) k/uL Basophils # (0-0.2) k/uL Sodium (137-145) mmol/L Potassium (3.5-5.1) mmol/L Chloride (98-107) mmol/L Carbon Dioxide (22-30) mmol/L Anion Gap mmol/L BUN (7-17) mg/dL Creatinine (0.52-1.04) mg/dL Est GFR (CKD-EPI)AfAm (>60 ml/min/1.73 sqM) Est GFR (CKD-EPI)NonAf (>60 ml/min/1.73 sqM) Glucose (74-99) mg/dL Calcium (8.4-10.2) mg/dL Total Bilirubin (0.2-1.3) mg/dL AST (14-36) U/L ALT (4-34) U/L Alkaline Phosphatase (38-126) U/L Total Protein (6.3-8.2) g/dL Albumin (3.5-5.0) g/dL Amylase (30-110) U/L Lipase (23-300) U/L Urine Color Yellow Urine Appearance Cloudy H (Clear) Urine pH 6.0 (5.0-8.0) Ur Specific Philipp 1.010 (1.001-1.035) Urine Protein 1+ (Negative) Urine Glucose (UA) Negative (Negative) Urine Ketones Negative (Negative) Urine Blood Negative (Negative) Urine Nitrite Negative (Negative) Urine Bilirubin Negative (Negative) Urine Urobilinogen <2.0 (<2.0) mg/dL Ur Leukocyte Esterase Small (Negative) Urine RBC 1 (0-5) /hpf Urine WBC 4 (0-5) /hpf Ur Squamous Epith Cells 32 H (0-4) /hpf Amorphous Sediment Rare H (None) /hpf Urine Bacteria Rare H (None) /hpf Urine Mucus Moderate H (None) /hpf Urine HCG, Qual (Not Detectd) Influenza Type A RNA Not Detected (Not Detectd) Influenza Type B (PCR) Not Detected (Not Detectd) Disposition Clinical Impression: Nausea vomiting and diarrhea Disposition: HOME SELF-CARE Condition: Good Instructions (If sedation given, give patient instructions): Acute Nausea and Vomiting (ED), Acute Diarrhea (ED) Additional Instructions: Please drink plenty of fluids. Try a bland diet consisting of bananas rice applesauce and toast. Follow-up with primary care in 1-2 days. Return if you have any worsening symptoms. Is patient prescribed a controlled substance at d/c from ED?: No Referrals: [facility] [Primary Care Provider] - 1-2 days Time of Disposition: 20:32
[2019-11-08] MEDS ORDERED: ONDANSETRON 4 MG ODT STARTER PACK 2 TAB BTL PO STA (20:37)
[2019-11-08 20:44] VITALS: BP 119/80; PULSE 80; TEMP 98.4
== END 2019-11-08 20:40 | disposition home or self-care (01) ==
LOC: EC 19:28
DX: R11.2 Nausea with vomiting, unspecified (principal); R19.7 Diarrhea, unspecified; I25.2 Old myocardial infarction; F41.9 Anxiety disorder, unspecified; G43.909 Migraine, unspecified, not intractable, without status migrainosus; G40.909 Epilepsy, unspecified, not intractable, without status epilepticus; F31.9 Bipolar disorder, unspecified; F90.9 Attention-deficit hyperactivity disorder, unspecified type; Z79.82 Long term (current) use of aspirin; Z79.899 Other long term (current) drug therapy; Z88.7 Allergy status to serum and vaccine; Z91.012 Allergy to eggs; Z88.8 Allergy status to other drugs, medicaments and biological substances; Z88.5 Allergy status to narcotic agent; Z88.2 Allergy status to sulfonamides; Z88.1 Allergy status to other antibiotic agents; Z87.891 Personal history of nicotine dependence; Z90.49 Acquired absence of other specified parts of digestive tract
CPT/HCPCS: 36415; 80053; 82150; 83690; 85025; 81001; 81025; 87502; 96360; 99284; S0119

== ENCOUNTER 2019-11-20 21:12 | Emergency (ER) | payer OTHER ==
[2019-11-20 21:23] VITALS: RESP 18; TEMP 98.6
[2019-11-20] MEDS ORDERED: IPRATROPIUM-ALBUTEROL 3 ML NEB INHALATION STA (21:27)
[2019-11-20] MEDS ORDERED: ALBUTEROL NEBULIZED 2.5 MG/3 ML INHALATION STA (21:28)
--- NOTE | 2019-11-20 21:32 | ED ---
SOB HPI - General Chief Complaint: Shortness of Breath Stated Complaint: SIVAKUMAR Time Seen by Provider: 11/20/19 21:15 Source: patient Mode of arrival: EMS - History of Present Illness Initial Comments: This patient is a 34-year-old woman with history of asthma, who presents with complaint of having 6-7 days of cough, shortness of breath, and some wheezing. The patient also has been having occasional episodes of posttussive emesis. She presents today because she had taken her albuterol this evening and it was not giving her relief from symptoms as it usually does. She is not having chest pain. She does have some low back pain when she coughs. MD Complaint: shortness of breath, cough, "asthma attack" Onset/Timin -: days(s) Improves With: nothing Worsens With: nothing Known History Of: asthma Associated Symptoms: cough Treatments Prior to Arrival: bronchodilator - Related Data Home Oxygen Therapy: No Home Medications Medication Instructions Recorded Confirmed Metoprolol Tartrate [Lopressor] 25 mg PO BID 09/29/18 09/29/19 ARIPiprazole [Abilify] 20 mg PO DAILY 09/29/19 09/29/19 Aspirin EC [Ecotrin Low Dose] 81 mg PO DAILY 09/29/19 09/29/19 Citalopram Hydrobromide [CeleXA] 40 mg PO DAILY 09/29/19 09/29/19 Famotidine [Pepcid] 20 mg PO DAILY 09/29/19 09/29/19 Lacosamide [Vimpat] 100 mg PO BID 09/29/19 09/29/19 OXcarbazepine [Trileptal] 600 mg PO BID 09/29/19 09/29/19 Topiramate [Topamax] 50 mg PO BID 09/29/19 09/29/19 Previous Rx's Medication Instructions Recorded Metoprolol Tartrate [Lopressor] 12.5 mg PO BID #20 dose 09/30/19 Famotidine [Pepcid] 20 mg PO BID #5 tablet 10/06/19 predniSONE 50 mg PO DAILY #3 tab 10/06/19 Albuterol Inhaler [Ventolin Hfa 1 - 2 puff INHALATION Q6HR PRN #1 11/20/19 Inhaler] inhaler predniSONE 60 mg PO DAILY #30 tab 11/20/19 Allergies Allergy/AdvReac Type Severity Reaction Status Date / Time azithromycin Allergy Rash/Hives Verified 10/06/19 19:03 divalproex sodium Allergy "had Verified 10/06/19 19:03 [From Depakote] seizure when coming off" hydrocodone Allergy Rash/Hives Verified 10/06/19 19:03 Quinolones Allergy Rash/Hives Verified 10/06/19 19:03 sulfamethoxazole Allergy Rash/Hives Verified 10/06/19 19:03 [From Bactrim] tramadol Allergy Rash/Hives Verified 10/06/19 19:03 trimethoprim [From Bactrim] Allergy Rash/Hives Verified 10/06/19 19:03 codeine AdvReac Vertigo Verified 10/06/19 19:03 diphenhydramine HCl AdvReac Rapid Verified 10/06/19 19:03 [From Benadryl] Heart Rate egg AdvReac Nausea & Verified 10/06/19 19:03 Vomiting Influenza Virus Vaccines AdvReac Nausea & Verified 10/06/19 19:03 Vomiting Review of Systems ROS Statement: Those systems with pertinent positive or pertinent negative responses have been documented in the HPI. ROS Other: All systems not noted in ROS Statement are negative. Constitutional: Denies: fever, chills ENT: Reports: congestion. Denies: throat pain Respiratory: Reports: as per HPI, cough, dyspnea, wheezes. Denies: hemoptysis Cardiovascular: Denies: chest pain, palpitations, orthopnea, edema, syncope Gastrointestinal: Reports: as per HPI, vomiting. Denies: abdominal pain, diarrhea Genitourinary: Denies: dysuria, hematuria Musculoskeletal: Reports: as per HPI, back pain Skin: Denies: rash Neurological: Denies: headache, weakness Past Medical History Past Medical History: Asthma, Chest Pain / Angina, GERD/Reflux, Myocardial Infarction ([place]), Seizure Disorder, Syncope Additional Past Medical History / Comment(s): migraines, last seizure 4 months ago [place] x 2, low blood pressures, irregular heart beat, tachycardia, Last Myocardial Infarction Date:: 10/2016 History of Any Multi-Drug Resistant Organisms: None Reported Past Surgical History: Cholecystectomy, Tubal Ligation Additional Past Surgical History / Comment(s): Tilt table test, wisdom teeth extraction. Past Anesthesia/Blood Transfusion Reactions: Previous Problems w/ Anesthesia Additional Past Anesthesia/Blood Transfusion Reaction / Comment(s): "I get anxious when I wake up when my fiance is not there" Past Psychological History: ADD/ADHD, Anxiety, Bipolar, Depression, PTSD Smoking Status: Former smoker Past Alcohol Use History: None Reported Past Drug Use History: Heroin - Past Family History Father Family Medical History: Cancer Additional Family Medical History / Comment(s): Father at age 61 from lung CA Mother Family Medical History: No Reported History, Seizure Disorder Additional Family Medical History / Comment(s): Mother is alive with history of bipolar/schitzophrenia Brother(s) Additional Family Medical History / Comment(s): She has one half brother that abuses cocaine and methamphetamines. She does not have any contact with him. Patient has 1 sister with no major medical problems. Patient does not have any children. General Exam General appearance: alert, in no apparent distress Head exam: Present: atraumatic, normocephalic Eye exam: Present: normal appearance ENT exam: Present: normal oropharynx Neck exam: Present: normal inspection, full ROM. Absent: lymphadenopathy Respiratory exam: Present: wheezes. Absent: respiratory distress, rales, rhonchi, stridor, accessory muscle use Cardiovascular Exam: Present: regular rate, normal rhythm, normal heart sounds. Absent: systolic murmur, diastolic murmur, rubs, gallop GI/Abdominal exam: Present: soft. Absent: distended, tenderness, guarding, rebound, rigid Extremities exam: Present: normal inspection, normal capillary refill. Absent: pedal edema, calf tenderness Back exam: Present: normal inspection. Absent: CVA tenderness (R), CVA tenderness (L) Neurological exam: Present: alert Skin exam: Present: warm, dry, intact, normal color Course Vital Signs 11/20/19 11/20/19 11/20/19 21:13 21:33 21:50 Temperature 98.6 F Pulse Rate 102 H 92 Respiratory 18 18 Rate Blood Pressure 106/76 O2 Sat by Pulse 99 Oximetry 11/20/19 22:03 Temperature Pulse Rate 94 Respiratory Rate Blood Pressure O2 Sat by Pulse Oximetry Medical Decision Making - Lab Data Lab Results 11/20/19 Range/Units 21:30 Influenza Type A RNA Not Detected (Not Detectd) Influenza Type B (PCR) Not Detected (Not Detectd) - EKG Data -: EKG Interpreted by Me EKG shows normal: sinus rhythm (Rate 93 bpm), axis (Normal), intervals (Normal), QRS complexes (There is a left anterior fascicular block.) Disposition Clinical Impression: Bronchitis Disposition: HOME SELF-CARE Condition: Good Instructions (If sedation given, give patient instructions): Acute Bronchitis (ED) Prescriptions: predniSONE 60 mg PO DAILY #30 tab Albuterol Inhaler [Ventolin Hfa Inhaler] 1 - 2 puff INHALATION Q6HR PRN #1 inhaler PRN Reason: Wheezing Is patient prescribed a controlled substance at d/c from ED?: No Referrals: None,Stated [Primary Care Provider] - 1-2 days
--- NOTE | 2019-11-20 21:48 | XR ---
EXAMINATION TYPE: XR chest 2V DATE OF EXAM: 11/20/2019 COMPARISON: Prior chest x-ray October 06, 2019. HISTORY: Shortness of breath and cough. TECHNIQUE: Frontal and lateral views of the chest are obtained. FINDINGS: Overlying EKG leads are now present. There is no focal air space opacity, pleural effusion , or pneumothorax seen. The cardiac silhouette size is within normal limits. The osseous structure s are intact. IMPRESSION: No acute cardiopulmonary process. No significant change from prior.
[2019-11-20] MEDS ORDERED: predniSONE 20 MG TAB PO STA (22:05)
[2019-11-20 22:15] VITALS: BP 132/77; PULSE 114
== END 2019-11-20 22:16 | disposition home or self-care (01) ==
LOC: EC 21:12
DX: J40 Bronchitis, not specified as acute or chronic (principal); I20.9 Angina pectoris, unspecified; K21.9 Gastro-esophageal reflux disease without esophagitis; I25.2 Old myocardial infarction; G40.909 Epilepsy, unspecified, not intractable, without status epilepticus; F31.9 Bipolar disorder, unspecified; F41.9 Anxiety disorder, unspecified; F90.9 Attention-deficit hyperactivity disorder, unspecified type; Z87.891 Personal history of nicotine dependence; Z88.1 Allergy status to other antibiotic agents; Z88.2 Allergy status to sulfonamides; Z88.5 Allergy status to narcotic agent; Z88.7 Allergy status to serum and vaccine; Z88.8 Allergy status to other drugs, medicaments and biological substances; Z91.012 Allergy to eggs; Z79.82 Long term (current) use of aspirin; Z79.899 Other long term (current) drug therapy; Z86.69 Personal history of other diseases of the nervous system and sense organs; Z87.09 Personal history of other diseases of the respiratory system; Z80.1 Family history of malignant neoplasm of trachea, bronchus and lung
CPT/HCPCS: 94640; 87502; 71046; 99285; J7512

== ENCOUNTER 2019-12-12 19:01 | Emergency (ER) | payer OTHER ==
[2019-12-12 19:06] VITALS: TEMP 97.8
[2019-12-12] MEDS ORDERED: IPRATROPIUM-ALBUTEROL 3 ML NEB INHALATION STA (19:17)
[2019-12-12] MEDS ORDERED: FAMOTIDINE 20 MG TAB PO STA (19:17)
[2019-12-12] MEDS ORDERED: predniSONE 20 MG TAB PO STA (19:17)
--- NOTE | 2019-12-12 19:23 | ED ---
General Adult HPI - General Chief complaint: Upper Respiratory Infection Stated complaint: cough Time Seen by Provider: 12/12/19 19:07 Source: patient Mode of arrival: ambulatory Limitations: no limitations - History of Present Illness Initial comments: Patient is a 34-year-old female With history of asthma presenting to emergency Department with chief complaint of a cough. Patient states symptoms of an ongoing for about 3 weeks. Patient reports a productive cough with yellow sputum production. Patient states she will went to her primary care was prescribed amoxicillin for 7 days. Patient reports minimal improvement of symptoms. Patient states she has a nebulizer at home but does not have any medicine for. Patient reports shortness of breath but denies any chest and back abdominal pain. Nausea nausea vomiting diarrhea. Denies any night sweats fevers or chills at home. Patient denies smoking. - Related Data Home Medications Medication Instructions Recorded Confirmed Metoprolol Tartrate [Lopressor] 25 mg PO BID 09/29/18 09/29/19 ARIPiprazole [Abilify] 20 mg PO DAILY 09/29/19 09/29/19 Aspirin EC [Ecotrin Low Dose] 81 mg PO DAILY 09/29/19 09/29/19 Citalopram Hydrobromide [CeleXA] 40 mg PO DAILY 09/29/19 09/29/19 Famotidine [Pepcid] 20 mg PO DAILY 09/29/19 09/29/19 Lacosamide [Vimpat] 100 mg PO BID 09/29/19 09/29/19 OXcarbazepine [Trileptal] 600 mg PO BID 09/29/19 09/29/19 Topiramate [Topamax] 50 mg PO BID 09/29/19 09/29/19 Previous Rx's Medication Instructions Recorded Metoprolol Tartrate [Lopressor] 12.5 mg PO BID #20 dose 09/30/19 Famotidine [Pepcid] 20 mg PO BID #5 tablet 10/06/19 predniSONE 50 mg PO DAILY #3 tab 10/06/19 Albuterol Inhaler [Ventolin Hfa 1 - 2 puff INHALATION Q6HR PRN #1 11/20/19 Inhaler] inhaler predniSONE 60 mg PO DAILY #30 tab 11/20/19 Albuterol Inhaler [Ventolin Hfa 1 - 2 puff INHALATION RT-Q6H PRN 12/12/19 Inhaler] #1 inhaler Amoxicillin/Potassium Clav 1 tab PO Q12HR #20 tab 12/12/19 [Augmentin 875-125 Tablet] predniSONE 50 mg PO DAILY #5 tab 12/12/19 Allergies Allergy/AdvReac Type Severity Reaction Status Date / Time azithromycin Allergy Rash/Hives Verified 12/12/19 19:05 divalproex sodium Allergy "had Verified 12/12/19 19:05 [From Depakote] seizure when coming off" hydrocodone Allergy Rash/Hives Verified 12/12/19 19:05 Quinolones Allergy Rash/Hives Verified 12/12/19 19:05 sulfamethoxazole Allergy Rash/Hives Verified 12/12/19 19:05 [From Bactrim] tramadol Allergy Rash/Hives Verified 12/12/19 19:05 trimethoprim [From Bactrim] Allergy Rash/Hives Verified 12/12/19 19:05 codeine AdvReac Vertigo Verified 12/12/19 19:05 diphenhydramine HCl AdvReac Rapid Verified 12/12/19 19:05 [From Benadryl] Heart Rate egg AdvReac Nausea & Verified 12/12/19 19:05 Vomiting Influenza Virus Vaccines AdvReac Nausea & Verified 12/12/19 19:05 Vomiting Review of Systems ROS Statement: Those systems with pertinent positive or pertinent negative responses have been documented in the HPI. ROS Other: All systems not noted in ROS Statement are negative. Past Medical History Past Medical History: Asthma, Chest Pain / Angina, GERD/Reflux, Myocardial Infarction ([place]), Seizure Disorder, Syncope Additional Past Medical History / Comment(s): migraines, last seizure 4 months ago [place] x 2, low blood pressures, irregular heart beat, tachycardia, Last Myocardial Infarction Date:: 10/2016 History of Any Multi-Drug Resistant Organisms: None Reported Past Surgical History: Cholecystectomy, Tubal Ligation Additional Past Surgical History / Comment(s): Tilt table test, wisdom teeth extraction. Past Anesthesia/Blood Transfusion Reactions: Previous Problems w/ Anesthesia Additional Past Anesthesia/Blood Transfusion Reaction / Comment(s): "I get anxious when I wake up when my fiance is not there" Past Psychological History: ADD/ADHD, Anxiety, Bipolar, Depression, PTSD Smoking Status: Former smoker Past Alcohol Use History: None Reported Past Drug Use History: Heroin - Past Family History Father Family Medical History: Cancer Additional Family Medical History / Comment(s): Father at age 61 from lung [place] Mother Family Medical History: No Reported History, Seizure Disorder Additional Family Medical History / Comment(s): Mother is alive with history of bipolar/schitzophrenia Brother(s) Additional Family Medical History / Comment(s): She has one half brother that abuses cocaine and methamphetamines. She does not have any contact with him. Patient has 1 sister with no major medical problems. Patient does not have any children. General Exam Limitations: no limitations General appearance: alert, in no apparent distress Head exam: Present: atraumatic, normocephalic, normal inspection Eye exam: Present: normal appearance, PERRL, EOMI Pupils: Present: normal accommodation ENT exam: Present: normal exam, normal oropharynx, mucous membranes moist, TM's normal bilaterally, normal external ear exam Neck exam: Present: normal inspection, full ROM. Absent: lymphadenopathy Respiratory exam: Present: normal lung sounds bilaterally. Absent: respiratory distress, wheezes, rales Cardiovascular Exam: Present: regular rate, normal rhythm, normal heart sounds Extremities exam: Present: normal inspection, full ROM Back exam: Present: normal inspection, full ROM Neurological exam: Present: alert, oriented X3 Psychiatric exam: Present: normal affect, normal mood Skin exam: Present: warm, dry, intact, normal color Course Vital Signs 12/12/19 12/12/19 19:03 20:00 Temperature 97.8 F Pulse Rate 117 H 100 Respiratory 18 Rate Blood Pressure 112/81 O2 Sat by Pulse 99 Oximetry Medical Decision Making - Medical Decision Making Patient 34-year-old female presenting to emergency department with a chief complaint of cough. No wheezing detected on exam. Patient has a history of asthma and is a former smoker. Patient was given steroids in the ED and an albuterol treatment. X-rays unremarkable. On reevaluation patient reports improvement in his symptoms. Considering the patient has had symptoms for about. She will be treated with an antibiotic. Patient also given a prescription for an inhaler and steroids. Return parameters were discussed with patient is understanding and agreeable. Case discussed with physician. Disposition Clinical Impression: Bronchitis Disposition: HOME SELF-CARE Condition: Stable Instructions (If sedation given, give patient instructions): Acute Bronchitis (ED) Additional Instructions: Take prescribed medication as directed. Alternate between Tylenol and Motrin for fever control. Return to emergency department if symptoms worsen. Prescriptions: predniSONE 50 mg PO DAILY #5 tab Albuterol Inhaler [Ventolin Hfa Inhaler] 1 - 2 puff INHALATION RT-Q6H PRN #1 inhaler PRN Reason: Wheezing Is patient prescribed a controlled substance at d/c from ED?: No Referrals: [facility] [Primary Care Provider] - 1-2 days Time of Disposition: 20:10
--- NOTE | 2019-12-12 19:54 | XR ---
EXAMINATION TYPE: XR chest 2V DATE OF EXAM: 12/12/2019 COMPARISON: 11/20/2019 HISTORY: Cough for 3 weeks TECHNIQUE: 2 views. FINDINGS: Heart and mediastinum are normal. Lungs are clear. Diaphragm is normal. Bony thorax appears normal. IMPRESSION: Normal chest. No change.
[2019-12-12 20:27] VITALS: BP 116/70; PULSE 105; RESP 22
== END 2019-12-12 20:20 | disposition home or self-care (01) ==
LOC: EC 19:01
DX: J40 Bronchitis, not specified as acute or chronic (principal); G40.909 Epilepsy, unspecified, not intractable, without status epilepticus; I25.2 Old myocardial infarction; K21.9 Gastro-esophageal reflux disease without esophagitis; F41.9 Anxiety disorder, unspecified; F31.9 Bipolar disorder, unspecified; F90.9 Attention-deficit hyperactivity disorder, unspecified type; Z79.82 Long term (current) use of aspirin; Z79.899 Other long term (current) drug therapy; Z88.1 Allergy status to other antibiotic agents; Z88.5 Allergy status to narcotic agent; Z88.2 Allergy status to sulfonamides; Z88.7 Allergy status to serum and vaccine; Z88.8 Allergy status to other drugs, medicaments and biological substances; Z91.012 Allergy to eggs; Z87.891 Personal history of nicotine dependence
CPT/HCPCS: 94640; 71046; 99283; J7512

== ENCOUNTER 2020-01-04 13:21 | Emergency (ER) | payer OTHER ==
[2020-01-04] MEDS ORDERED: IBUPROFEN 600 MG TAB PO STA (14:04)
[2020-01-04] MEDS ORDERED: ACETAMINOPHEN TAB 325 MG TAB PO STA (14:04)
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
--- NOTE | 2020-01-04 14:44 | XR ---
EXAMINATION TYPE: XR knee complete LT DATE OF EXAM: 01/04/2020 COMPARISON: 08/05/2018 HISTORY: Injury pain swelling TECHNIQUE: Three-view left knee FINDINGS: No acute fractures are evident. Joint spaces preserved. Soft tissues are normal. No joint e ffusion is evident. Follow-up exams can be performed 7-10 days from acute trauma for continued pain. IMPRESSION: 1. Normal three-view left knee
[2020-01-04 15:34] VITALS: BP 108/78; PULSE 92; RESP 16; TEMP 98.4
== END 2020-01-04 15:33 | disposition home or self-care (01) ==
LOC: EC 13:21
DX: S80.02XA Contusion of left knee, initial encounter (principal); F41.9 Anxiety disorder, unspecified; G40.909 Epilepsy, unspecified, not intractable, without status epilepticus; I25.2 Old myocardial infarction; K21.9 Gastro-esophageal reflux disease without esophagitis; F31.9 Bipolar disorder, unspecified; Z79.899 Other long term (current) drug therapy; Z79.82 Long term (current) use of aspirin; Z88.1 Allergy status to other antibiotic agents; Z88.8 Allergy status to other drugs, medicaments and biological substances; Z88.5 Allergy status to narcotic agent; Z88.2 Allergy status to sulfonamides; Z88.7 Allergy status to serum and vaccine; Z91.012 Allergy to eggs; Y04.0XXA Assault by unarmed brawl or fight, initial encounter
CPT/HCPCS: 73562; 99283; L1830

== ENCOUNTER 2020-01-08 13:58 | Emergency (ER) | payer OTHER ==
[2020-01-08 14:03] VITALS: BP 107/70; PULSE 120; RESP 18; TEMP 98.7
[2020-01-08] MEDS ORDERED: DIPH,PERTUS(ACELL)TETVAC-LF 0.5 ML VIAL IM ONE (14:17)
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
== END 2020-01-08 15:05 | disposition home or self-care (01) ==
LOC: EC 13:58
DX: M25.562 Pain in left knee (principal); R20.2 Paresthesia of skin; K21.9 Gastro-esophageal reflux disease without esophagitis; I25.2 Old myocardial infarction; G40.909 Epilepsy, unspecified, not intractable, without status epilepticus; F41.9 Anxiety disorder, unspecified; F31.9 Bipolar disorder, unspecified; Z79.82 Long term (current) use of aspirin; Z79.899 Other long term (current) drug therapy; Z88.1 Allergy status to other antibiotic agents; Z88.8 Allergy status to other drugs, medicaments and biological substances; Z88.5 Allergy status to narcotic agent; Z88.2 Allergy status to sulfonamides; Z88.7 Allergy status to serum and vaccine; Z91.012 Allergy to eggs; Z87.891 Personal history of nicotine dependence
CPT/HCPCS: 99283

== ENCOUNTER 2020-01-21 16:06 | Emergency (ER) | payer OTHER ==
[2020-01-21 16:11] VITALS: RESP 20; TEMP 98.4
[2020-01-21 16:53] VITALS: PULSE 110
[2020-01-21] MEDS ORDERED: guaiFENesin SYRUP 100MG/5ML 200 MG/10 ML CUP PO STA (16:58)
--- NOTE | 2020-01-21 17:41 | XR ---
EXAMINATION TYPE: XR chest 1V portable DATE OF EXAM: 01/21/2020 COMPARISON: 12/12/2019 INDICATION: Cough, short of breath TECHNIQUE: Single frontal view of the chest is obtained. FINDINGS: The heart size is normal. The pulmonary vasculature is normal. The lungs are clear. IMPRESSION: 1. No acute pulmonary process.
--- NOTE | 2020-01-21 17:47 | ED ---
URI HPI - General Chief Complaint: Upper Respiratory Infection Stated Complaint: COugh Time Seen by Provider: 01/21/20 16:26 Source: patient Mode of arrival: ambulatory Limitations: no limitations - History of Present Illness Initial Comments: 34-year-old female patient presents to the emergency department today for evaluation of cough and shortness of breath. Patient states that she has had symptoms for the last 2 months. Patient states 2 days ago she did have a fever measuring 101F at home. States she is coughing up clear sputum. Denies any he moptysis. She denies any chest pain with this. Denies any dizziness or weakness. Denies taking any medication for her symptoms. Denies history of smoking. She denies any nasal congestion or drainage. Denies any sore throat. Patient denies any recent rash, chest pain, abdominal pain, nausea, vomiting, diarrhea, constipation, back pain, numbness, tingling, dizziness, weakness, hematuria, dysuria, urinary urgency, urinary frequency, headache, visual changes, or any other complaints. - Related Data Home Medications Medication Instructions Recorded Confirmed Metoprolol Tartrate [Lopressor] 25 mg PO BID 09/29/18 09/29/19 ARIPiprazole [Abilify] 20 mg PO DAILY 09/29/19 09/29/19 Aspirin EC [Ecotrin Low Dose] 81 mg PO DAILY 09/29/19 09/29/19 Citalopram Hydrobromide [CeleXA] 40 mg PO DAILY 09/29/19 09/29/19 Famotidine [Pepcid] 20 mg PO DAILY 09/29/19 09/29/19 Lacosamide [Vimpat] 100 mg PO BID 09/29/19 09/29/19 OXcarbazepine [Trileptal] 600 mg PO BID 09/29/19 09/29/19 Topiramate [Topamax] 50 mg PO BID 09/29/19 09/29/19 Previous Rx's Medication Instructions Recorded Metoprolol Tartrate [Lopressor] 12.5 mg PO BID #20 dose 09/30/19 Famotidine [Pepcid] 20 mg PO BID #5 tablet 10/06/19 predniSONE 50 mg PO DAILY #3 tab 10/06/19 Albuterol Inhaler (Mhu) [Ventolin 1 - 2 puff INHALATION Q6HR PRN #1 11/20/19 Hfa Inhaler (Mhu)] inhaler predniSONE 60 mg PO DAILY #30 tab 11/20/19 Albuterol Inhaler (Mhu) [Ventolin 1 - 2 puff INHALATION RT-Q6H PRN 12/12/19 Hfa Inhaler (Mhu)] #1 inhaler Amoxicillin/Potassium Clav 1 tab PO Q12HR #20 tab 12/12/19 [Augmentin 875-125 Tablet] predniSONE 50 mg PO DAILY #5 tab 12/12/19 guaiFENesin SYRUP 100MG/5ML 200 mg PO Q4-6H PRN #200 ml 01/21/20 [Robitussin] methylPREDNISolone [Medrol Dose 4 mg PO DIRECTED #1 pack 01/21/20 Pack] Allergies Allergy/AdvReac Type Severity Reaction Status Date / Time azithromycin Allergy Rash/Hives Verified 01/21/20 16:12 divalproex sodium Allergy "had Verified 01/21/20 16:12 [From Depakote] seizure when coming off" hydrocodone Allergy Rash/Hives Verified 01/21/20 16:12 Quinolones Allergy Rash/Hives Verified 01/21/20 16:12 sulfamethoxazole Allergy Rash/Hives Verified 01/21/20 16:12 [From Bactrim] tramadol Allergy Rash/Hives Verified 01/21/20 16:12 trimethoprim [From Bactrim] Allergy Rash/Hives Verified 01/21/20 16:12 codeine AdvReac Vertigo Verified 01/21/20 16:12 diphenhydramine HCl AdvReac Rapid Verified 01/21/20 16:12 [From Benadryl] Heart Rate egg AdvReac Nausea & Verified 01/21/20 16:12 Vomiting Influenza Virus Vaccines AdvReac Nausea & Verified 01/21/20 16:12 Vomiting Review of Systems ROS Statement: Those systems with pertinent positive or pertinent negative responses have been documented in the HPI. ROS Other: All systems not noted in ROS Statement are negative. Past Medical History Past Medical History: Asthma, Chest Pain / Angina, GERD/Reflux, Myocardial Infarction ([place]), Seizure Disorder, Syncope Additional Past Medical History / Comment(s): migraines, last seizure 4 months ago [place] x 2, low blood pressures, irregular heart beat, tachycardia, Last Myocardial Infarction Date:: 10/2016 History of Any Multi-Drug Resistant Organisms: None Reported Past Surgical History: Cholecystectomy, Tubal Ligation Additional Past Surgical History / Comment(s): Tilt table test, wisdom teeth extraction. Past Anesthesia/Blood Transfusion Reactions: Previous Problems w/ Anesthesia Additional Past Anesthesia/Blood Transfusion Reaction / Comment(s): "I get anxious when I wake up when my fiance is not there" Past Psychological History: ADD/ADHD, Anxiety, Bipolar, Depression, PTSD Smoking Status: Former smoker Past Alcohol Use History: None Reported Past Drug Use History: Heroin - Past Family History Father Family Medical History: Cancer Additional Family Medical History / Comment(s): Father at age 61 from lung CA Mother Family Medical History: No Reported History, Seizure Disorder Additional Family Medical History / Comment(s): Mother is alive with history of bipolar/schitzophrenia Brother(s) Additional Family Medical History / Comment(s): She has one half brother that abuses cocaine and methamphetamines. She does not have any contact with him. Patient has 1 sister with no major medical problems. Patient does not have any children. General Exam Limitations: no limitations General appearance: alert, in no apparent distress, other (This is a well-dev eloped, well-nourished adult female patient in no acute distress. Vital signs upon presentation are temperature 98.4F, pulse 120, respirations 20, blood pressure 111/76, pulse ox 98% on room air.) ENT exam: Present: normal exam, normal oropharynx, mucous membranes moist Respiratory exam: Present: normal lung sounds bilaterally. Absent: respiratory distress, wheezes, rales, rhonchi, stridor Cardiovascular Exam: Present: normal rhythm, tachycardia, normal heart sounds. Absent: systolic murmur, diastolic murmur, rubs, gallop, clicks GI/Abdominal exam: Present: soft, normal bowel sounds. Absent: distended, tenderness, guarding, rebound, rigid Neurological exam: Present: alert, oriented X3, CN II-XII intact Psychiatric exam: Present: normal affect, normal mood Skin exam: Present: warm, dry, intact, normal color. Absent: rash Course Vital Signs 01/21/20 01/21/20 01/21/20 16:08 16:51 17:00 Temperature 98.4 F 98.4 F Pulse Rate 120 H 110 H Respiratory 20 18 Rate Blood Pressure 111/76 120/82 120/82 O2 Sat by Pulse 98 97 97 Oximetry 01/21/20 01/21/20 17:30 18:19 Temperature 98.4 F Pulse Rate 110 H Respiratory 20 Rate Blood Pressure 115/80 115/80 O2 Sat by Pulse 100 100 Oximetry Medical Decision Making - Medical Decision Making 34-year-old female patient presents to the emergency department today for evaluation of cough and shortness of breath for the last 2 months. Physical examination did reveal clear equal lung sounds. Vital signs showed no major a bnormalities. Chest x-ray was negative. Coronavirus testing was negative. We will give patient Medrol Dosepak and Robitussin for symptom relief. She is instructed to follow-up with her primary care physician for recheck in 1-2 days. Return parameters were discussed in detail. She verbalizes understanding and agrees with this plan. - Lab Data Lab Results 01/21/20 Range/Units 17:00 Coronavirus (PCR) Not Detected (Not Detectd) - Radiology Data Radiology results: report reviewed, image reviewed One view x-ray of the chest is obtained. Report was reviewed in its entirety. Impression by Dr. Carter shows no acute pulmonary process. Disposition Clinical Impression: Acute bronchitis Disposition: HOME SELF-CARE Condition: Good Instructions (If sedation given, give patient instructions): Acute Bronchitis (ED) Additional Instructions: Take medications as directed. Follow up with your primary care physician for recheck in 1-2 days. Return to the emergency department immediately for any new, worsening, or concerning symptoms. Prescriptions: methylPREDNISolone [Medrol Dose Pack] 4 mg PO DIRECTED #1 pack guaiFENesin SYRUP 100MG/5ML [Robitussin] 200 mg PO Q4-6H PRN #200 ml PRN Reason: Cough Is patient prescribed a controlled substance at d/c from ED?: No Referrals: [facility] [Primary Care Provider] - 1-2 days Time of Disposition: 18:06
[2020-01-21 18:01] VITALS: BP 115/80
== END 2020-01-21 18:22 | disposition home or self-care (01) ==
LOC: EC 16:06
DX: J02.9 Acute pharyngitis, unspecified (principal); Z20.828 Contact with and (suspected) exposure to other viral communicable diseases; K21.9 Gastro-esophageal reflux disease without esophagitis; G40.909 Epilepsy, unspecified, not intractable, without status epilepticus; I25.2 Old myocardial infarction; F41.9 Anxiety disorder, unspecified; F31.9 Bipolar disorder, unspecified; Z79.899 Other long term (current) drug therapy; Z79.82 Long term (current) use of aspirin; Z88.1 Allergy status to other antibiotic agents; Z88.5 Allergy status to narcotic agent; Z88.2 Allergy status to sulfonamides; Z88.8 Allergy status to other drugs, medicaments and biological substances; Z91.012 Allergy to eggs; Z88.7 Allergy status to serum and vaccine; Z87.891 Personal history of nicotine dependence
CPT/HCPCS: 71045; 87635; 99283

== ENCOUNTER 2020-03-04 17:16 | Emergency (ER) | payer OTHER ==
--- NOTE | 2020-03-04 17:26 | ED ---
General Adult HPI - General Stated complaint: Fall Time Seen by Provider: 03/04/20 17:17 Source: RN notes reviewed - History of Present Illness Initial comments: 34-year-old female well known to this emergency department for several different complaints presents to the ER for chief complaint of left knee pain. Patient tripped over a pillow and fell on the left knee. Patient states she laid on the ground holding her left knee for a while. Patient denies any type of dislocation concern. Patient states it is painful to walk on and to bend. Patient did not hit her head. She did not sustain any other injuries. Patient has no other complaints at this time including shortness of breath, chest pain, abdominal pain, nausea or vomiting, headache, or visual changes. - Related Data Home Medications Medication Instructions Recorded Confirmed Metoprolol Tartrate [Lopressor] 25 mg PO BID 09/29/18 09/29/19 ARIPiprazole [Abilify] 20 mg PO DAILY 09/29/19 09/29/19 Aspirin EC [Ecotrin Low Dose] 81 mg PO DAILY 09/29/19 09/29/19 Citalopram Hydrobromide [CeleXA] 40 mg PO DAILY 09/29/19 09/29/19 Famotidine [Pepcid] 20 mg PO DAILY 09/29/19 09/29/19 Lacosamide [Vimpat] 100 mg PO BID 09/29/19 09/29/19 OXcarbazepine [Trileptal] 600 mg PO BID 09/29/19 09/29/19 Topiramate [Topamax] 50 mg PO BID 09/29/19 09/29/19 Previous Rx's Medication Instructions Recorded Metoprolol Tartrate [Lopressor] 12.5 mg PO BID #20 dose 09/30/19 Famotidine [Pepcid] 20 mg PO BID #5 tablet 10/06/19 predniSONE 50 mg PO DAILY #3 tab 10/06/19 Albuterol Inhaler (Mhu) [Ventolin 1 - 2 puff INHALATION Q6HR PRN #1 11/20/19 Hfa Inhaler (Mhu)] inhaler predniSONE 60 mg PO DAILY #30 tab 11/20/19 Albuterol Inhaler (Mhu) [Ventolin 1 - 2 puff INHALATION RT-Q6H PRN 03/21/20 Hfa Inhaler (Mhu)] #1 inhaler Amoxicillin/Potassium Clav 1 tab PO Q12HR #20 tab 12/12/19 [Augmentin 875-125 Tablet] predniSONE 50 mg PO DAILY #5 tab 12/12/19 guaiFENesin SYRUP 100MG/5ML 200 mg PO Q4-6H PRN #200 ml 01/21/20 [Robitussin] methylPREDNISolone [Medrol Dose 4 mg PO DIRECTED #1 pack 01/21/20 Pack] Allergies Allergy/AdvReac Type Severity Reaction Status Date / Time azithromycin Allergy Rash/Hives Verified 03/04/20 17:49 divalproex sodium Allergy "had Verified 03/04/20 17:49 [From Depakote] seizure when coming off" hydrocodone Allergy Rash/Hives Verified 03/04/20 17:49 phenytoin [From Dilantin] Allergy Unknown Verified 03/04/20 17:49 Quinolones Allergy Rash/Hives Verified 03/04/20 17:49 sulfamethoxazole Allergy Rash/Hives Verified 03/04/20 17:49 [From Bactrim] tramadol Allergy Rash/Hives Verified 03/04/20 17:49 trimethoprim [From Bactrim] Allergy Rash/Hives Verified 03/04/20 17:49 codeine AdvReac Vertigo Verified 03/04/20 17:49 diphenhydramine HCl AdvReac Rapid Verified 03/04/20 17:49 [From Benadryl] Heart Rate egg AdvReac Nausea & Verified 03/04/20 17:49 Vomiting Influenza Virus Vaccines AdvReac Nausea & Verified 03/04/20 17:49 Vomiting Review of Systems ROS Statement: Those systems with pertinent positive or pertinent negative responses have been documented in the HPI. ROS Other: All systems not noted in ROS Statement are negative. Past Medical History Past Medical History: Asthma, Chest Pain / Angina, GERD/Reflux, Myocardial Infarction ([place]), Seizure Disorder, Syncope Additional Past Medical History / Comment(s): migraines, last seizure 4 months ago [place] x 2, low blood pressures, irregular heart beat, tachycardia, Last Myocardial Infarction Date:: 10/2016 History of Any Multi-Drug Resistant Organisms: None Reported Past Surgical History: Cholecystectomy, Tubal Ligation Additional Past Surgical History / Comment(s): Tilt table test, wisdom teeth extraction. Past Anesthesia/Blood Transfusion Reactions: Previous Problems w/ Anesthesia Additional Past Anesthesia/Blood Transfusion Reaction / Comment(s): "I get anxious when I wake up when my fiance is not there" Past Psychological History: ADD/ADHD, Anxiety, Bipolar, Depression, PTSD Smoking Status: Former smoker Past Alcohol Use History: None Reported Past Drug Use History: Heroin - Past Family History Father Family Medical History: Cancer Additional Family Medical History / Comment(s): Father at age 61 from lung [place] Mother Family Medical History: No Reported History, Seizure Disorder Additional Family Medical History / Comment(s): Mother is alive with history of bipolar/schitzophrenia Brother(s) Additional Family Medical History / Comment(s): She has one half brother that abuses cocaine and methamphetamines. She does not have any contact with him. Patient has 1 sister with no major medical problems. Patient does not have any children. General Exam General appearance: alert, in no apparent distress Head exam: Present: atraumatic, normocephalic, normal inspection Eye exam: Present: normal appearance, PERRL, EOMI. Absent: scleral icterus, conjunctival injection, periorbital swelling ENT exam: Present: normal exam, mucous membranes moist Neck exam: Present: normal inspection, full ROM. Absent: tenderness, meningismus, lymphadenopathy Respiratory exam: Present: normal lung sounds bilaterally. Absent: respiratory distress, wheezes, rales, rhonchi, stridor Cardiovascular Exam: Present: regular rate, normal rhythm, normal heart sounds. Absent: systolic murmur, diastolic murmur, rubs, gallop, clicks GI/Abdominal exam: Present: soft, normal bowel sounds. Absent: distended, tenderness, guarding, rebound, rigid Extremities exam: Present: tenderness (Generalized tenderness of the left knee.), normal capillary refill (Capillary refill less than 2 seconds, DP pulse 2+ left lower extremity.), other (Sensation intact left lower extremity). Absent: full ROM (Patient has about 45 flexion of the left knee), pedal edema, joint swelling (No edema or ecchymosis, skin exam is normal over the left knee), calf tenderness Course Vital Signs 03/04/20 03/04/20 17:45 17:52 Temperature 98.4 F 98.1 F Pulse Rate 104 H 109 H Respiratory 18 18 Rate Blood Pressure 108/80 113/81 O2 Sat by Pulse 100 100 Oximetry Medical Decision Making - Medical Decision Making X-ray of the left knee is negative. Patient refused pain medication stating she had just had Motrin prior to arrival. Patient's knee was wrapped with an Mann wrap. She will follow up with orthopedics. She will return here for any worsening symptoms. Disposition Clinical Impression: Knee pain Disposition: HOME SELF-CARE Condition: Good Instructions (If sedation given, give patient instructions): Knee Pain (ED) Additional Instructions: Please take Motrin and Tylenol for pain. Please use Mann wrap as needed. Follow-up with primary care in 1-2 days. Return to the emergency department for any worsening symptoms. Is patient prescribed a controlled substance at d/c from ED?: No Referrals: [facility] [Primary Care Provider] - 1-2 days Time of Disposition: 18:08
[2020-03-04 17:48] VITALS: RESP 18
[2020-03-04 17:52] VITALS: BP 113/81; PULSE 109; TEMP 98.1
--- NOTE | 2020-03-04 17:53 | XR ---
EXAMINATION TYPE: XR knee complete LT DATE OF EXAM: 03/04/2020 COMPARISON: NONE HISTORY: Knee pain TECHNIQUE: 3 views FINDINGS: There is no sign of fracture nor dislocation. Joint spaces are normal. There is no sign of joint effusion. IMPRESSION: Negative left knee exam. No fracture.
== END 2020-03-04 18:33 | disposition home or self-care (01) ==
LOC: EC 17:16
DX: M25.562 Pain in left knee (principal); K21.9 Gastro-esophageal reflux disease without esophagitis; I25.2 Old myocardial infarction; G40.909 Epilepsy, unspecified, not intractable, without status epilepticus; G43.909 Migraine, unspecified, not intractable, without status migrainosus; F41.9 Anxiety disorder, unspecified; F32.9 Major depressive disorder, single episode, unspecified; F43.10 Post-traumatic stress disorder, unspecified; Z87.891 Personal history of nicotine dependence; Z79.82 Long term (current) use of aspirin; Z79.899 Other long term (current) drug therapy; Z88.1 Allergy status to other antibiotic agents; Z88.8 Allergy status to other drugs, medicaments and biological substances; Z88.5 Allergy status to narcotic agent; Z88.2 Allergy status to sulfonamides; Z91.012 Allergy to eggs; Z88.7 Allergy status to serum and vaccine
CPT/HCPCS: 99283

== ENCOUNTER 2020-04-05 12:47 | Emergency (ER) | payer OTHER ==
[2020-04-05 12:59] VITALS: RESP 18; TEMP 98.7
--- NOTE | 2020-04-05 13:46 | ED ---
URI HPI - General Chief Complaint: Upper Respiratory Infection Stated Complaint: Cough Time Seen by Provider: 04/05/20 13:03 Source: patient Mode of arrival: ambulatory Limitations: no limitations - History of Present Illness Initial Comments: Patient is a 34-year-old female presenting to the emergency Department with complaints of a cough for the last 1-2 weeks. She describes it as a dry cough, not very much phlegm production. She does have a history of asthma. She states she's been trying [id number] cough medicines without relief. She denies any fever or chills. She states she did have a temperature of 99.0 at home. She denies any chest pain, shortness of breath, nausea, vomiting. She denies any nasal congestion, headache. She has no further complaints at this time. Upon arrival to the ER, her vital signs are stable, afebrile. - Related Data Home Medications Medication Instructions Recorded Confirmed Metoprolol Tartrate [Lopressor] 25 mg PO BID 09/29/18 09/29/19 ARIPiprazole [Abilify] 20 mg PO DAILY 09/29/19 09/29/19 Aspirin EC [Ecotrin Low Dose] 81 mg PO DAILY 09/29/19 09/29/19 Citalopram Hydrobromide [CeleXA] 40 mg PO DAILY 09/29/19 09/29/19 Famotidine [Pepcid] 20 mg PO DAILY 09/29/19 09/29/19 Lacosamide [Vimpat] 100 mg PO BID 09/29/19 09/29/19 OXcarbazepine [Trileptal] 600 mg PO BID 09/29/19 09/29/19 Topiramate [Topamax] 50 mg PO BID 09/29/19 09/29/19 Previous Rx's Medication Instructions Recorded Metoprolol Tartrate [Lopressor] 12.5 mg PO BID #20 dose 09/30/19 Famotidine [Pepcid] 20 mg PO BID #5 tablet 10/06/19 predniSONE 50 mg PO DAILY #3 tab 10/06/19 Albuterol Inhaler (Mhu) [Ventolin 1 - 2 puff INHALATION Q6HR PRN #1 11/20/19 Hfa Inhaler (Mhu)] inhaler predniSONE 60 mg PO DAILY #30 tab 11/20/19 Albuterol Inhaler (Mhu) [Ventolin 1 - 2 puff INHALATION RT-Q6H PRN 12/12/19 Hfa Inhaler (Mhu)] #1 inhaler Amoxicillin/Potassium Clav 1 tab PO Q12HR #20 tab 12/12/19 [Augmentin 875-125 Tablet] predniSONE 50 mg PO DAILY #5 tab 12/12/19 guaiFENesin SYRUP 100MG/5ML 200 mg PO Q4-6H PRN #200 ml 01/21/20 [Robitussin] methylPREDNISolone [Medrol Dose 4 mg PO DIRECTED #1 pack 01/21/20 Pack] Benzonatate [Tessalon Perles] 100 mg PO TID PRN #15 capsule 04/05/20 methylPREDNISolone [Medrol Dose 4 mg PO DIRECTED #1 pack 04/05/20 Pack] Allergies Allergy/AdvReac Type Severity Reaction Status Date / Time azithromycin Allergy Rash/Hives Verified 03/04/20 17:49 divalproex sodium Allergy "had Verified 03/04/20 17:49 [From Depakote] seizure when coming off" hydrocodone Allergy Rash/Hives Verified 03/04/20 17:49 phenytoin [From Dilantin] Allergy Unknown Verified 03/04/20 17:49 Quinolones Allergy Rash/Hives Verified 03/04/20 17:49 sulfamethoxazole Allergy Rash/Hives Verified 03/04/20 17:49 [From Bactrim] tramadol Allergy Rash/Hives Verified 03/04/20 17:49 trimethoprim [From Bactrim] Allergy Rash/Hives Verified 03/04/20 17:49 codeine AdvReac Vertigo Verified 03/04/20 17:49 diphenhydramine HCl AdvReac Rapid Verified 03/04/20 17:49 [From Benadryl] Heart Rate egg AdvReac Nausea & Verified 03/04/20 17:49 Vomiting Influenza Virus Vaccines AdvReac Nausea & Verified 03/04/20 17:49 Vomiting Review of Systems ROS Statement: Those systems with pertinent positive or pertinent negative responses have been documented in the HPI. ROS Other: All systems not noted in ROS Statement are negative. Past Medical History Past Medical History: Asthma, Chest Pain / Angina, GERD/Reflux, Myocardial Infarction ([place]), Seizure Disorder, Syncope Additional Past Medical History / Comment(s): migraines, last seizure 4 months ago [place] x 2, low blood pressures, irregular heart beat, tachycardia, Last Myocardial Infarction Date:: 10/2016 History of Any Multi-Drug Resistant Organisms: None Reported Past Surgical History: Cholecystectomy, Tubal Ligation Additional Past Surgical History / Comment(s): Tilt table test, wisdom teeth extraction. Past Anesthesia/Blood Transfusion Reactions: Previous Problems w/ Anesthesia Additional Past Anesthesia/Blood Transfusion Reaction / Comment(s): "I get anxious when I wake up when my fiance is not there" Past Psychological History: ADD/ADHD, Anxiety, Bipolar, Depression, PTSD Past Alcohol Use History: None Reported Past Drug Use History: Heroin - Past Family History Father Family Medical History: Cancer Additional Family Medical History / Comment(s): Father at age 61 from lung [place] Mother Family Medical History: No Reported History, Seizure Disorder Additional Family Medical History / Comment(s): Mother is alive with history of bipolar/schitzophrenia Brother(s) Additional Family Medical History / Comment(s): She has one half brother that abuses cocaine and methamphetamines. She does not have any contact with him. Patient has 1 sister with no major medical problems. Patient does not have any children. General Exam - General Exam Comments Initial Comments: GENERAL: Well-appearing, well-nourished and in no acute distress. HEAD: Atraumatic, normocephalic. EYES: Pupils equal round and reactive to light, extraocular movements intact, sclera anicteric, conjunctiva are normal. ENT: TMs normal, nares patent, oropharynx clear without exudates. Moist mucous membranes. NECK: Normal range of motion, supple without lymphadenopathy or JVD. LUNGS: Breath sounds clear to auscultation bilaterally and equal. No wheezes rales or rhonchi. HEART: Regular rate and rhythm without murmurs, rubs or gallops. ABDOMEN: Soft, nontender, normoactive bowel sounds. No guarding, no rebound. No masses appreciated. : Deferred EXTREMITIES: Normal range of motion, no pitting or edema. No clubbing or cyanosis. NEUROLOGICAL: Normal speech, normal gait. PSYCH: Normal mood, normal affect. SKIN: Warm, Dry, normal turgor, no rashes or lesions noted. Limitations: no limitations Course Vital Signs 04/05/20 04/05/20 12:56 14:00 Temperature 98.7 F Pulse Rate 62 88 Respiratory 18 18 Rate Blood Pressure 102/73 132/76 O2 Sat by Pulse 98 99 Oximetry Medical Decision Making - Medical Decision Making Patient is a 34-year-old female with history of asthma presenting with a cough for the past 1-2 weeks. Her vitals are stable, afebrile. Her exam is unremarkable, no wheezing. She denies chest pain, shortness of breath. Chest x-ray is unremarkable, discussed the patient is most likely viral in nature. She'll be given a shot of solu-medrol for discharge. I also also send her home with a Medrol Dosepak as well as cough suppressant. Patient is agreement with this plan of care. She'll follow-up with her PCP. Return parameters were discussed with the patient she verbalized understanding. Case discussed with Dr. Laguerre. Disposition Clinical Impression: Upper respiratory infection, viral Disposition: HOME SELF-CARE Condition: Stable Instructions (If sedation given, give patient instructions): Upper Respiratory Infection (ED) Additional Instructions: Please return to the Emergency Department if symptoms worsen or any other concerns. Continue with prescribed steroids tomorrow. Trial of cough suppressant. May also try Delsym. Prescriptions: methylPREDNISolone [Medrol Dose Pack] 4 mg PO DIRECTED #1 pack Benzonatate [Tessalon Perles] 100 mg PO TID PRN #15 capsule PRN Reason: Cough Is patient prescribed a controlled substance at d/c from ED?: No Referrals: [facility] [Primary Care Provider] - 1-2 days
--- NOTE | 2020-04-05 14:12 | XR ---
EXAMINATION TYPE: XR chest 2V DATE OF EXAM: 04/05/2020 COMPARISON: Prior chest x-ray 01/21/2020 HISTORY: Cough TECHNIQUE: Frontal and lateral views of the chest are obtained. FINDINGS: There is no focal air space opacity, pleural effusion, or pneumothorax seen. The cardiac silhouette size is within normal limits. The osseous structures are intact, there is a spinal curva ture. Surgical clips are present in the right upper quadrant. IMPRESSION: No acute cardiopulmonary process.
[2020-04-05] MEDS ORDERED: methylPREDNISolone SOD SUCCI 125 MG/2 ML VIAL IM ONE (14:22)
[2020-04-05 14:33] VITALS: BP 132/76; PULSE 88
== END 2020-04-05 14:34 | disposition home or self-care (01) ==
LOC: EC 12:47
DX: J06.9 Acute upper respiratory infection, unspecified (principal); I25.2 Old myocardial infarction; K21.9 Gastro-esophageal reflux disease without esophagitis; F31.9 Bipolar disorder, unspecified; F41.9 Anxiety disorder, unspecified; G40.909 Epilepsy, unspecified, not intractable, without status epilepticus; Z88.1 Allergy status to other antibiotic agents; Z88.2 Allergy status to sulfonamides; Z88.5 Allergy status to narcotic agent; Z88.6 Allergy status to analgesic agent; Z88.7 Allergy status to serum and vaccine; Z88.8 Allergy status to other drugs, medicaments and biological substances; Z79.899 Other long term (current) drug therapy
CPT/HCPCS: 71046; 99283

== ENCOUNTER 2020-04-23 08:40 | Emergency (ER) | payer OTHER ==
[2020-04-23 08:47] VITALS: RESP 18; TEMP 98.2
[2020-04-23] MEDS ORDERED: SODIUM CHLORIDE 0.9% 1,000 ML IV ONE (08:47)
[2020-04-23 09:04] LABS: Basophils % (A) 1 %; Eosinophils # (A) 0.1 k/uL (0-0.7); Eosinophils % (A) 2 %; HCT 40.6 % (34.0-46.0); HGB 13.3 gm/dL (11.4-16.0); Lymphocytes # (A) 1.8 k/uL (1.0-4.8); Lymphocytes % (A) 25 %; MCH 31.6 pg (25.0-35.0); MCHC 32.7 g/dL (31.0-37.0); MCV 96.6 fL (80.0-100.0); Mean Platelet Volume 6.6; Monocytes # (A) 0.5 k/uL (0-1.0); Monocytes % (A) 8 %; Neutrophils # (A) 4.5 k/uL (1.3-7.7); Neutrophils % (A) 63 %; Platelet Count 253 k/uL (150-450); RDW 13.2 % (11.5-15.5); WBC 7.1 k/uL (3.8-10.6)
--- NOTE | 2020-04-23 09:09 | ED ---
General Adult HPI - General Chief complaint: Nausea/Vomiting/Diarrhea Stated complaint: Dizzy, Vomiting Time Seen by Provider: 04/23/20 08:44 Source: patient, RN notes reviewed, old records reviewed Mode of arrival: ambulatory Limitations: no limitations - History of Present Illness Initial comments: 34-year-old female patient presents ED chief complaint nausea vomiting the last 5 days. Also reports that she was feels a little dizzy. Denies any areas of pain. Denies any other complaints. Systemic: Pt denies fatigue, fever/chills, rash. Pt denies weakness, night sweats, weight loss. Neuro: Pt denies headache, visual disturbances, syncope or pre-syncope. HEENT: Pt denies ocular discharge or irritation, otalgia, rhinorrhea, pharyngitis or notable lymphadenopathy. Cardiopulmonary: Pt denies chest pain, SOB, heart palpitations, dyspnea on exer tion. Abdominal/GI: Pt denies abdominal pain : Pt denies dysuria, burning w/ urination, frequency/urgency. Denies new onset urinary or bowel incontinence. MSK: Pt denies myalgia, loss of strength or function in extremities. Neuro: Pt denies new onset weakness, paresthesias. - Related Data Home Medications Medication Instructions Recorded Confirmed Metoprolol Tartrate [Lopressor] 25 mg PO BID 09/29/18 09/29/19 ARIPiprazole [Abilify] 20 mg PO DAILY 09/29/19 09/29/19 Aspirin EC [Ecotrin Low Dose] 81 mg PO DAILY 09/29/19 09/29/19 Citalopram Hydrobromide [CeleXA] 40 mg PO DAILY 09/29/19 09/29/19 Famotidine [Pepcid] 20 mg PO DAILY 09/29/19 09/29/19 Lacosamide [Vimpat] 100 mg PO BID 09/29/19 09/29/19 OXcarbazepine [Trileptal] 600 mg PO BID 09/29/19 09/29/19 Topiramate [Topamax] 50 mg PO BID 09/29/19 09/29/19 Previous Rx's Medication Instructions Recorded Metoprolol Tartrate [Lopressor] 12.5 mg PO BID #20 dose 09/30/19 Famotidine [Pepcid] 20 mg PO BID #5 tablet 10/06/19 predniSONE 50 mg PO DAILY #3 tab 10/06/19 Albuterol Inhaler (Mhu) [Ventolin 1 - 2 puff INHALATION Q6HR PRN #1 11/20/19 Hfa Inhaler (u)] inhaler predniSONE 60 mg PO DAILY #30 tab 11/20/19 Albuterol Inhaler (Mhu) [Ventolin 1 - 2 puff INHALATION RT-Q6H PRN 12/12/19 Hfa Inhaler (u)] #1 inhaler Amoxicillin/Potassium Clav 1 tab PO Q12HR #20 tab 12/12/19 [Augmentin 875-125 Tablet] predniSONE 50 mg PO DAILY #5 tab 12/12/19 guaiFENesin SYRUP 100MG/5ML 200 mg PO Q4-6H PRN #200 ml 01/21/20 [Robitussin] methylPREDNISolone [Medrol Dose 4 mg PO DIRECTED #1 pack 01/21/20 Pack] Benzonatate [Tessalon Perles] 100 mg PO TID PRN #15 capsule 04/05/20 methylPREDNISolone [Medrol Dose 4 mg PO DIRECTED #1 pack 04/05/20 Pack] Metoclopramide HCl [Reglan] 10 mg PO Q8HR PRN #15 tab 04/23/20 Allergies Allergy/AdvReac Type Severity Reaction Status Date / Time azithromycin Allergy Rash/Hives Verified 04/23/20 08:48 divalproex sodium Allergy "had Verified 04/23/20 08:48 [From Depakote] seizure when coming off" hydrocodone Allergy Rash/Hives Verified 04/23/20 08:48 phenytoin [From Dilantin] Allergy Unknown Verified 04/23/20 08:48 Quinolones Allergy Rash/Hives Verified 04/23/20 08:48 sulfamethoxazole Allergy Rash/Hives Verified 04/23/20 08:48 [From Bactrim] tramadol Allergy Rash/Hives Verified 04/23/20 08:48 trimethoprim [From Bactrim] Allergy Rash/Hives Verified 04/23/20 08:48 codeine AdvReac Vertigo Verified 04/23/20 08:48 diphenhydramine HCl AdvReac Rapid Verified 04/23/20 08:48 [From Benadryl] Heart Rate egg AdvReac Nausea & Verified 04/23/20 08:48 Vomiting Influenza Virus Vaccines AdvReac Nausea & Verified 04/23/20 08:48 Vomiting Review of Systems ROS Statement: Those systems with pertinent positive or pertinent negative responses have been documented in the HPI. ROS Other: All systems not noted in ROS Statement are negative. Past Medical History Past Medical History: Asthma, Chest Pain / Angina, GERD/Reflux, Myocardial Infarction ([place]), Seizure Disorder, Syncope Additional Past Medical History / Comment(s): migraines, last seizure 4 months ago [place] x 2, low blood pressures, irregular heart beat, tachycardia, Last Myocardial Infarction Date:: 10/2016 History of Any Multi-Drug Resistant Organisms: None Reported Past Surgical History: Cholecystectomy, Tubal Ligation Additional Past Surgical History / Comment(s): Tilt table test, wisdom teeth extraction. Past Anesthesia/Blood Transfusion Reactions: Previous Problems w/ Anesthesia Additional Past Anesthesia/Blood Transfusion Reaction / Comment(s): "I get anxious when I wake up when my fiance is not there" Past Psychological History: ADD/ADHD, Anxiety, Bipolar, Depression, PTSD Smoking Status: Former smoker Past Alcohol Use History: None Reported Past Drug Use History: Heroin - Past Family History Father Family Medical History: Cancer Additional Family Medical History / Comment(s): Father at age 61 from lung CA Mother Family Medical History: No Reported History, Seizure Disorder Additional Family Medical History / Comment(s): Mother is alive with history of bipolar/schitzophrenia Brother(s) Additional Family Medical History / Comment(s): She has one half brother that abuses cocaine and methamphetamines. She does not have any contact with him. Patient has 1 sister with no major medical problems. Patient does not have any children. General Exam - General Exam Comments Initial Comments: Constitutional: NAD, AOX3, Pt has pleasant affect. HEENT: NC/AT, trachea midline, neck supple, no lymphadenopathy. External ears appear normal, without discharge. Mucous membranes moist. Eyes PERRLA, EOM intact. There is no scleral icterus. No pallor noted. Cardiopulmonary: RRR, no murmurs, rubs or gallops, no JVD noted. Lungs CTAB in anterior and posterior rey. No peripheral edema. Abdominal exam: Abdomen soft and non-distended. Abdomen non-tender to palpation in all 4 quadrants. Bowel sounds active in LLQ. No hepatosplenomegaly. No ecchymosis Neuro: CN II-XII intact. No nuchal rigidity. No raccon eyes, no henderson sign, no hemotympanum. No cervical spinal tenderness. MSK: No posterior calf tenderness bilaterally, homans sign negative bilaterally. Posterior tibialis and radial pulse +2 bilaterally. Sensation intact in upper and lower extremities. Full active ROM in upper and lower extremities, 5/5 stregnth. Limitations: no limitations Course Vital Signs 04/23/20 04/23/20 08:41 10:43 Temperature 98.2 F Pulse Rate 97 89 Respiratory 18 18 Rate Blood Pressure 109/75 101/71 O2 Sat by Pulse 99 100 Oximetry Medical Decision Making - Medical Decision Making 34-year-old female patient presents to ED with chief complaint of nausea vomiting. Patient reports that she has chronic nausea and vomiting and she has been having worsening symptoms the last 4-5 days. She also reports she feels little dizzy today. Denies any areas of pain. Denies any other complaints. Physical exam didn't display acute pathology. Neurologic exam is intact. She is denying any headache. Laboratory investigations are nonimmpressive. Patient administered fluid bolus. Patient is requesting discharge states that she feels asymptomatic, patient will be discharged for follow-up with primary care provider. Case discussed with Dr. Mendoza. - Lab Data Result diagrams: 04/23/20 08:56 04/23/20 08:56 Lab Results 04/23/20 04/23/20 04/23/20 Range/Units 08:56 08:56 09:47 WBC 7.1 (3.8-10.6) k/uL RBC 4.20 (3.80-5.40) m/uL Hgb 13.3 (11.4-16.0) gm/dL Hct 40.6 (34.0-46.0) % MCV 96.6 (80.0-100.0) fL MCH 31.6 (25.0-35.0) pg MCHC 32.7 (31.0-37.0) g/dL RDW 13.2 (11.5-15.5) % Plt Count 253 (150-450) k/uL Neutrophils % 63 % Lymphocytes % 25 % Monocytes % 8 % Eosinophils % 2 % Basophils % 1 % Neutrophils # 4.5 (1.3-7.7) k/uL Lymphocytes # 1.8 (1.0-4.8) k/uL Monocytes # 0.5 (0-1.0) k/uL Eosinophils # 0.1 (0-0.7) k/uL Basophils # 0.0 (0-0.2) k/uL Sodium 139 (137-145) mmol/L Potassium 3.6 (3.5-5.1) mmol/L Chloride 112 H (98-107) mmol/L Carbon Dioxide 21 L (22-30) mmol/L Anion Gap 6 mmol/L BUN 4 L (7-17) mg/dL Creatinine 0.67 (0.52-1.04) mg/dL Est GFR (CKD-EPI)AfAm >90 (>60 ml/min/1.73 sqM) Est GFR (CKD-EPI)NonAf >90 (>60 ml/min/1.73 sqM) Glucose 96 (74-99) mg/dL Calcium 9.0 (8.4-10.2) mg/dL Magnesium 2.0 (1.6-2.3) mg/dL Total Bilirubin 0.3 (0.2-1.3) mg/dL AST 16 (14-36) U/L ALT 17 (4-34) U/L Alkaline Phosphatase 64 (38-126) U/L Total Protein 6.1 L (6.3-8.2) g/dL Albumin 3.4 L (3.5-5.0) g/dL Urine Color Yellow Urine Appearance Cloudy H (Clear) Urine pH 6.5 (5.0-8.0) Ur Specific [place] 1.006 (1.001-1.035) Urine Protein Negative (Negative) Urine Glucose (UA) Negative (Negative) Urine Ketones Negative (Negative) Urine Blood Negative (Negative) Urine Nitrite Negative (Negative) Urine Bilirubin Negative (Negative) Urine Urobilinogen <2.0 (<2.0) mg/dL Ur Leukocyte Esterase Trace H (Negative) Urine RBC 1 (0-5) /hpf Urine WBC 6 H (0-5) /hpf Ur Squamous Epith Cells 12 H (0-4) /hpf Urine Bacteria Rare H (None) /hpf Hyaline Casts 1 (0-2) /lpf Urine Mucus Few H (None) /hpf Urine HCG, Qual (Not Detectd) [place] <0.2 mmol/L 04/23/20 Range/Units 09:47 WBC (3.8-10.6) k/uL RBC (3.80-5.40) m/uL Hgb (11.4-16.0) gm/dL Hct (34.0-46.0) % MCV (80.0-100.0) fL MCH (25.0-35.0) pg MCHC (31.0-37.0) g/dL RDW (11.5-15.5) % Plt Count (150-450) k/uL Neutrophils % % Lymphocytes % % Monocytes % % Eosinophils % % Basophils % % Neutrophils # (1.3-7.7) k/uL Lymphocytes # (1.0-4.8) k/uL Monocytes # (0-1.0) k/uL Eosinophils # (0-0.7) k/uL Basophils # (0-0.2) k/uL Sodium (137-145) mmol/L Potassium (3.5-5.1) mmol/L Chloride (98-107) mmol/L Carbon Dioxide (22-30) mmol/L Anion Gap mmol/L BUN (7-17) mg/dL Creatinine (0.52-1.04) mg/dL Est GFR (CKD-EPI)AfAm (>60 ml/min/1.73 sqM) Est GFR (CKD-EPI)NonAf (>60 ml/min/1.73 sqM) Glucose (74-99) mg/dL Calcium (8.4-10.2) mg/dL Magnesium (1.6-2.3) mg/dL Total Bilirubin (0.2-1.3) mg/dL AST (14-36) U/L ALT (4-34) U/L Alkaline Phosphatase (38-126) U/L Total Protein (6.3-8.2) g/dL Albumin (3.5-5.0) g/dL Urine Color Urine Appearance (Clear) Urine pH (5.0-8.0) Ur Specific [place] (1.001-1.035) Urine Protein (Negative) Urine Glucose (UA) (Negative) Urine Ketones (Negative) Urine Blood (Negative) Urine Nitrite (Negative) Urine Bilirubin (Negative) Urine Urobilinogen (<2.0) mg/dL Ur Leukocyte Esterase (Negative) Urine RBC (0-5) /hpf Urine WBC (0-5) /hpf Ur Squamous Epith Cells (0-4) /hpf Urine Bacteria (None) /hpf Hyaline Casts (0-2) /lpf Urine Mucus (None) /hpf Urine HCG, Qual Not Detected (Not Detectd) [place] mmol/L - EKG Data -: EKG Interpreted by Me (and Dr. Mendoza ) EKG Comments: Ventricular rate 86, purulent/56, QRS 106, QT/QTC 380 since 454. Normal sinus rhythm, left axis deviation. Possible anterior infarct age undetermined. No significant change from prior EKG. No concern for acute ischemia or arrhythmia at this time. Disposition Clinical Impression: Nausea & vomiting Disposition: HOME SELF-CARE Condition: Stable Instructions (If sedation given, give patient instructions): Acute Nausea and Vomiting (ED) Additional Instructions: Follow-up with primary care provider tomorrow. Return to ER if any worsening symptoms. Prescriptions: Metoclopramide HCl [Reglan] 10 mg PO Q8HR PRN #15 tab PRN Reason: Nausea Is patient prescribed a controlled substance at d/c from ED?: No Referrals: [facility] [Primary Care Provider] - 1-2 days
[2020-04-23 09:13] LABS: ALT 17 U/L (4-34); AST 16 U/L (14-36); African American GFR (CKD) >90 (>60 ml/min/1.73 sqM); Albumin 3.4 g/dL (3.5-5.0); Alkaline Phosphatase 64 U/L (38-126); Anion Gap 6 mmol/L; Blood Urea Nitrogen 4 mg/dL (7-17); Carbon Dioxide 21 mmol/L (22-30); Chloride 112 mmol/L (98-107); Glucose 96 mg/dL (74-99); Lithium <0.2 mmol/L; Non-African American GFR(CKD) >90 (>60 ml/min/1.73 sqM); Potassium 3.6 mmol/L (3.5-5.1); Sodium 139 mmol/L (137-145); Total Bilirubin 0.3 mg/dL (0.2-1.3); Total Protein 6.1 g/dL (6.3-8.2)
[2020-04-23] MEDS ORDERED: METOCLOPRAMIDE 5 MG/ML 2 ML VIAL IVP STA (09:50)
[2020-04-23 09:58] LABS: Appearance,Urine Cloudy (Clear); Bacteria,Urine Rare /hpf; Bilirubin,Urine Negative (Negative); Blood,Urine Negative (Negative); Color,Urine Yellow; Glucose,Urine (UA) Negative (Negative); Hyaline Casts,Urine 1 /lpf (0-2); Ketones,Urine Negative (Negative); Leukocyte Esterase,Urine Trace (Negative); Mucus,Urine Few /hpf; Nitrite,Urine Negative (Negative); PH, Urine 6.5 (5.0-8.0); Protein,Urine Negative (Negative); RBC,Urine 1 /hpf (0-5); Specific Gravity,Urine 1.006 (1.001-1.035); Squamous Epithelial Cell,Urine 12 /hpf (0-4); Urobilinogen,Urine <2.0 mg/dL (<2.0); WBC,Urine 6 /hpf (0-5)
[2020-04-23 10:45] VITALS: BP 101/71; PULSE 89
== END 2020-04-23 10:51 | disposition home or self-care (01) ==
LOC: EC 08:40
DX: R11.2 Nausea with vomiting, unspecified (principal); R42 Dizziness and giddiness; K21.9 Gastro-esophageal reflux disease without esophagitis; I25.2 Old myocardial infarction; G40.909 Epilepsy, unspecified, not intractable, without status epilepticus; F41.9 Anxiety disorder, unspecified; F31.9 Bipolar disorder, unspecified; Z79.82 Long term (current) use of aspirin; Z79.899 Other long term (current) drug therapy; Z88.1 Allergy status to other antibiotic agents; Z88.5 Allergy status to narcotic agent; Z88.8 Allergy status to other drugs, medicaments and biological substances; Z88.2 Allergy status to sulfonamides; Z91.012 Allergy to eggs; Z88.7 Allergy status to serum and vaccine; Z87.891 Personal history of nicotine dependence
CPT/HCPCS: 36415; 93005; 80053; 80178; 83735; 85025; 81001; 81025; 99285; 96374; 96361 ×2; J2765

== ENCOUNTER 2020-07-10 09:04 | Emergency (ER) | payer OTHER ==
[2020-07-10 09:10] VITALS: BP 109/76; PULSE 94; RESP 18; TEMP 97.9
--- NOTE | 2020-07-10 09:27 | ED ---
Upper Extremity HPI - General Chief Complaint: Extremity Injury, Upper Stated Complaint: fall, rt shoulder injury Time Seen by Provider: 07/10/20 09:15 Source: patient, RN notes reviewed Mode of arrival: ambulatory Limitations: no limitations - History of Present Illness Initial Comments: 35-year-old female presents emergency Department with chief complaint right shoulder pain. Patient states she was going to her house chasing her rabbits when she tripped, fell onto her shoulder. She states she has full range of motion but increases pain with movement. No head injury no loss conscious. Denies any chest pain or shortness of breath no paresthesias. Patient had no prior issues with her shoulder. - Related Data Home Medications Medication Instructions Recorded Confirmed Metoprolol Tartrate [Lopressor] 25 mg PO BID 09/29/18 09/29/19 ARIPiprazole [Abilify] 20 mg PO DAILY 09/29/19 09/29/19 Aspirin EC [Ecotrin Low Dose] 81 mg PO DAILY 09/29/19 09/29/19 Citalopram Hydrobromide [CeleXA] 40 mg PO DAILY 09/29/19 09/29/19 Famotidine [Pepcid] 20 mg PO DAILY 09/29/19 09/29/19 Lacosamide [Vimpat] 100 mg PO BID 09/29/19 09/29/19 OXcarbazepine [Trileptal] 600 mg PO BID 09/29/19 09/29/19 Topiramate [Topamax] 50 mg PO BID 09/29/19 09/29/19 Previous Rx's Medication Instructions Recorded Metoprolol Tartrate [Lopressor] 12.5 mg PO BID #20 dose 09/30/19 Famotidine [Pepcid] 20 mg PO BID #5 tablet 10/06/19 predniSONE 50 mg PO DAILY #3 tab 10/06/19 Albuterol Inhaler (Mhu) [Ventolin 1 - 2 puff INHALATION Q6HR PRN #1 11/20/19 Hfa Inhaler (Mhu)] inhaler predniSONE 60 mg PO DAILY #30 tab 11/20/19 Albuterol Inhaler (Mhu) [Ventolin 1 - 2 puff INHALATION RT-Q6H PRN 12/12/19 Hfa Inhaler (Mhu)] #1 inhaler Amoxicillin/Potassium Clav 1 tab PO Q12HR #20 tab 12/12/19 [Augmentin 875-125 Tablet] predniSONE 50 mg PO DAILY #5 tab 12/12/19 guaiFENesin SYRUP 100MG/5ML 200 mg PO Q4-6H PRN #200 ml 01/21/20 [Robitussin] methylPREDNISolone [Medrol Dose 4 mg PO DIRECTED #1 pack 01/21/20 Pack] Benzonatate [Tessalon Perles] 100 mg PO TID PRN #15 capsule 04/05/20 methylPREDNISolone [Medrol Dose 4 mg PO DIRECTED #1 pack 04/05/20 Pack] Metoclopramide HCl [Reglan] 10 mg PO Q8HR PRN #15 tab 04/23/20 Ibuprofen [Motrin] 600 mg PO Q8HR PRN #20 tab 07/10/20 Allergies Allergy/AdvReac Type Severity Reaction Status Date / Time azithromycin Allergy Rash/Hives Verified 07/10/20 09:10 divalproex sodium Allergy "had Verified 07/10/20 09:10 [From Depakote] seizure when coming off" hydrocodone Allergy Rash/Hives Verified 07/10/20 09:10 phenytoin [From Dilantin] Allergy Unknown Verified 07/10/20 09:10 Quinolones Allergy Rash/Hives Verified 07/10/20 09:10 sulfamethoxazole Allergy Rash/Hives Verified 07/10/20 09:10 [From Bactrim] tramadol Allergy Rash/Hives Verified 07/10/20 09:10 trimethoprim [From Bactrim] Allergy Rash/Hives Verified 07/10/20 09:10 codeine AdvReac Vertigo Verified 07/10/20 09:10 diphenhydramine HCl AdvReac Rapid Verified 07/10/20 09:10 [From Benadryl] Heart Rate egg AdvReac Nausea & Verified 07/10/20 09:10 Vomiting Influenza Virus Vaccines AdvReac Nausea & Verified 07/10/20 09:10 Vomiting Review of Systems ROS Statement: Those systems with pertinent positive or pertinent negative responses have been documented in the HPI. ROS Other: All systems not noted in ROS Statement are negative. Past Medical History Past Medical History: Asthma, Chest Pain / Angina, GERD/Reflux, Myocardial Infarction ([place]), Seizure Disorder, Syncope Additional Past Medical History / Comment(s): migraines, last seizure 4 months ago [place] x 2, low blood pressures, irregular heart beat, tachycardia, Last Myocardial Infarction Date:: 10/2016 History of Any Multi-Drug Resistant Organisms: None Reported Past Surgical History: Cholecystectomy, Tubal Ligation Additional Past Surgical History / Comment(s): Tilt table test, wisdom teeth extraction. Past Anesthesia/Blood Transfusion Reactions: Previous Problems w/ Anesthesia Additional Past Anesthesia/Blood Transfusion Reaction / Comment(s): "I get anxious when I wake up when my fiance is not there" Past Psychological History: ADD/ADHD, Anxiety, Bipolar, Depression, PTSD Smoking Status: Former smoker Past Alcohol Use History: None Reported Past Drug Use History: None Reported - Past Family History Father Family Medical History: Cancer Additional Family Medical History / Comment(s): Father at age 61 from lung CA Mother Family Medical History: No Reported History, Seizure Disorder Additional Family Medical History / Comment(s): Mother is alive with history of bipolar/schitzophrenia Brother(s) Additional Family Medical History / Comment(s): She has one half brother that abuses cocaine and methamphetamines. She does not have any contact with him. Patient has 1 sister with no major medical problems. Patient does not have any children. General Exam Limitations: no limitations General appearance: alert, in no apparent distress Head exam: Present: atraumatic, normocephalic, normal inspection Eye exam: Present: normal appearance, PERRL, EOMI. Absent: scleral icterus, conjunctival injection, periorbital swelling ENT exam: Present: normal exam, normal oropharynx, mucous membranes moist Neck exam: Present: normal inspection. Absent: tenderness, meningismus, lymphadenopathy Respiratory exam: Present: normal lung sounds bilaterally. Absent: respiratory distress, wheezes, rales, rhonchi, stridor Cardiovascular Exam: Present: regular rate, normal rhythm, normal heart sounds. Absent: systolic murmur, diastolic murmur, rubs, gallop, clicks Extremities exam: Present: other (Right shoulder is mild diffuse tenderness, no iris deformity no ecchymosis no swelling neurovascular intact patient's full range of motion full-strength) Neurological exam: Present: alert, oriented X3, CN II-XII intact, reflexes normal. Absent: motor sensory deficit Skin exam: Present: warm, dry, intact, normal color. Absent: rash Course Vital Signs 07/10/20 09:05 Temperature 97.9 F Pulse Rate 94 Respiratory 18 Rate Blood Pressure 109/76 O2 Sat by Pulse 100 Oximetry Medical Decision Making - Medical Decision Making X-ray shows no acute osseous abnormality no separation. Patient has a right shoulder sprain. Patient we discharged with anti-inflammatories and follow-up with PCP or orthopedics if no improvement. Disposition Clinical Impression: Sprain of shoulder, right Disposition: HOME SELF-CARE Condition: Stable Instructions (If sedation given, give patient instructions): Shoulder Sprain (ED) Additional Instructions: Please return to the Emergency Department if symptoms worsen or any other concerns. Prescriptions: Ibuprofen [Motrin] 600 mg PO Q8HR PRN #20 tab PRN Reason: Pain Is patient prescribed a controlled substance at d/c from ED?: No Referrals: [facility] [Primary Care Provider] - 1-2 days Time of Disposition: 09:49
--- NOTE | 2020-07-10 09:43 | XR ---
EXAMINATION TYPE: XR shoulder complete RT DATE OF EXAM: 07/10/2020 Comparison: None Clinical History: 35-year-old female fall, pain Findings: AC joint appears intact. Subacromial space is preserved. No acute fracture, subluxation or dislocatio n seen. Impression: No acute osseous abnormality seen.
[2020-07-10] MEDS ORDERED: IBUPROFEN 600 MG TAB PO STA (09:48)
== END 2020-07-10 09:57 | disposition home or self-care (01) ==
LOC: EC 09:04
DX: S43.401A Unspecified sprain of right shoulder joint, initial encounter (principal); K21.9 Gastro-esophageal reflux disease without esophagitis; I25.2 Old myocardial infarction; G40.909 Epilepsy, unspecified, not intractable, without status epilepticus; F41.9 Anxiety disorder, unspecified; F31.9 Bipolar disorder, unspecified; Z79.82 Long term (current) use of aspirin; Z79.899 Other long term (current) drug therapy; Z88.1 Allergy status to other antibiotic agents; Z88.5 Allergy status to narcotic agent; Z88.8 Allergy status to other drugs, medicaments and biological substances; Z88.2 Allergy status to sulfonamides; Z91.012 Allergy to eggs; Z88.7 Allergy status to serum and vaccine; Z87.891 Personal history of nicotine dependence; W01.0XXA Fall on same level from slipping, tripping and stumbling without subsequent striking against object, initial encounter
CPT/HCPCS: 99283

== ENCOUNTER 2020-09-02 19:14 | Emergency (ER) | payer OTHER ==
[2020-09-02 19:27] VITALS: TEMP 98.6
--- NOTE | 2020-09-02 19:29 | ED ---
Fall HPI - General Chief Complaint: Fall Stated Complaint: Fall, R Side Injury Time Seen by Provider: 09/02/20 19:28 Source: patient Mode of arrival: ambulatory - History of Present Illness Initial Comments: 35-year-old female presenting to the emergency room with a chief concern of a fall. Patient states she walked into a dark room and fell on the right side of her body. Patient states this occurred about one hour prior to arrival. Patient states she feels localized tenderness over the right clavicular region. She states there is a "bump". She also reports pain in the right shoulder particularly with abduction above 90. She does report taking ibuprofen no significant improvement in symptoms. Denies any numbness or tingling. States the pain is alleviated at rest. Denies chest pain shortness of breath. She denies head injury loss of consciousness. - Related Data Home Medications Medication Instructions Recorded Confirmed Metoprolol Tartrate [Lopressor] 25 mg PO BID 09/29/18 09/29/19 ARIPiprazole [Abilify] 20 mg PO DAILY 09/29/19 09/29/19 Aspirin EC [Ecotrin Low Dose] 81 mg PO DAILY 09/29/19 09/29/19 Citalopram Hydrobromide [CeleXA] 40 mg PO DAILY 09/29/19 09/29/19 Famotidine [Pepcid] 20 mg PO DAILY 09/29/19 09/29/19 Lacosamide [Vimpat] 100 mg PO BID 09/29/19 09/29/19 OXcarbazepine [Trileptal] 600 mg PO BID 09/29/19 09/29/19 Topiramate [Topamax] 50 mg PO BID 09/29/19 09/29/19 Previous Rx's Medication Instructions Recorded Metoprolol Tartrate [Lopressor] 12.5 mg PO BID #20 dose 09/30/19 Famotidine [Pepcid] 20 mg PO BID #5 tablet 10/06/19 predniSONE 50 mg PO DAILY #3 tab 10/06/19 Albuterol Inhaler (Mhu) [Ventolin 1 - 2 puff INHALATION Q6HR PRN #1 11/20/19 Hfa Inhaler (Mhu)] inhaler predniSONE 60 mg PO DAILY #30 tab 11/20/19 Albuterol Inhaler (Mhu) [Ventolin 1 - 2 puff INHALATION RT-Q6H PRN 12/12/19 Hfa Inhaler (Mhu)] #1 inhaler Amoxicillin/Potassium Clav 1 tab PO Q12HR #20 tab 12/12/19 [Augmentin 875-125 Tablet] predniSONE 50 mg PO DAILY #5 tab 12/12/19 guaiFENesin SYRUP 100MG/5ML 200 mg PO Q4-6H PRN #200 ml 01/21/20 [Robitussin] methylPREDNISolone [Medrol Dose 4 mg PO DIRECTED #1 pack 01/21/20 Pack] Benzonatate [Tessalon Perles] 100 mg PO TID PRN #15 capsule 04/05/20 methylPREDNISolone [Medrol Dose 4 mg PO DIRECTED #1 pack 04/05/20 Pack] Metoclopramide HCl [Reglan] 10 mg PO Q8HR PRN #15 tab 04/23/20 Ibuprofen [Motrin] 600 mg PO Q8HR PRN #20 tab 07/10/20 Allergies Allergy/AdvReac Type Severity Reaction Status Date / Time azithromycin Allergy Rash/Hives Verified 09/02/20 19:24 divalproex sodium Allergy "had Verified 09/02/20 19:24 [From Depakote] seizure when coming off" hydrocodone Allergy Rash/Hives Verified 09/02/20 19:24 phenytoin [From Dilantin] Allergy Unknown Verified 09/02/20 19:24 Quinolones Allergy Rash/Hives Verified 09/02/20 19:24 sulfamethoxazole Allergy Rash/Hives Verified 09/02/20 19:24 [From Bactrim] tramadol Allergy Rash/Hives Verified 09/02/20 19:24 trimethoprim [From Bactrim] Allergy Rash/Hives Verified 09/02/20 19:24 codeine AdvReac Vertigo Verified 09/02/20 19:24 diphenhydramine HCl AdvReac Rapid Verified 09/02/20 19:24 [From Benadryl] Heart Rate egg AdvReac Nausea & Verified 09/02/20 19:24 Vomiting Influenza Virus Vaccines AdvReac Nausea & Verified 09/02/20 19:24 Vomiting Review of Systems ROS Statement: Those systems with pertinent positive or pertinent negative responses have been documented in the HPI. ROS Other: All systems not noted in ROS Statement are negative. Past Medical History Past Medical History: Asthma, Chest Pain / Angina, GERD/Reflux, Myocardial Infarction ([place]), Seizure Disorder, Syncope Additional Past Medical History / Comment(s): migraines, last seizure 4 months ago [place] x 2, low blood pressures, irregular heart beat, tachycardia, Last Myocardial Infarction Date:: 10/2016 History of Any Multi-Drug Resistant Organisms: None Reported Past Surgical History: Cholecystectomy, Tubal Ligation Additional Past Surgical History / Comment(s): Tilt table test, wisdom teeth extraction. Past Anesthesia/Blood Transfusion Reactions: Previous Problems w/ Anesthesia Additional Past Anesthesia/Blood Transfusion Reaction / Comment(s): "I get anxious when I wake up when my fiance is not there" Past Psychological History: ADD/ADHD, Anxiety, Bipolar, Depression, PTSD Smoking Status: Former smoker Past Alcohol Use History: None Reported Past Drug Use History: None Reported - Past Family History Father Family Medical History: Cancer Additional Family Medical History / Comment(s): Father at age 61 from lung CA Mother Family Medical History: No Reported History, Seizure Disorder Additional Family Medical History / Comment(s): Mother is alive with history of bipolar/schitzophrenia Brother(s) Additional Family Medical History / Comment(s): She has one half brother that abuses cocaine and methamphetamines. She does not have any contact with him. Patient has 1 sister with no major medical problems. Patient does not have any children. General Exam Limitations: no limitations General appearance: alert, in no apparent distress Head exam: Present: atraumatic, normocephalic, normal inspection. Absent: other Eye exam: Present: normal appearance, PERRL, EOMI Pupils: Present: normal accommodation ENT exam: Present: normal exam, normal oropharynx, mucous membranes moist, TM's normal bilaterally, normal external ear exam Neck exam: Present: normal inspection, tenderness (Mild tenderness along the right trapezius. No midcervical tenderness.), full ROM Respiratory exam: Present: normal lung sounds bilaterally. Absent: respiratory distress, wheezes, rales Cardiovascular Exam: Present: regular rate, normal rhythm, normal heart sounds. Absent: systolic murmur, diastolic murmur, rubs GI/Abdominal exam: Present: soft. Absent: distended, tenderness, rebound Extremities exam: Present: normal inspection, full ROM (A range of motion in the right shoulder with abduction above 90.), tenderness (Localized tenderness over the clavicle and posterior deltoid.), normal capillary refill, other (+2 ulnar radial pulses bilaterally.). Absent: pedal edema, joint swelling, calf tendern ess Back exam: Present: normal inspection, full ROM. Absent: tenderness, CVA tenderness (R), CVA tenderness (L) Neurological exam: Present: alert, oriented X3 Psychiatric exam: Present: normal affect, normal mood Skin exam: Present: warm, dry, intact, normal color Course Vital Signs 09/02/20 09/02/20 19:24 20:24 Temperature 98.6 F Pulse Rate 121 H 97 Respiratory 16 18 Rate Blood Pressure 112/84 105/67 O2 Sat by Pulse 99 99 Oximetry Medical Decision Making - Medical Decision Making 35-year-old female presents emergency Department with a chief complaint of a fall. On physical examination, patient limited range of motion with abduction above 90 in the right shoulder. She also has localized tenderness to the proximal one third of her right clavicle. X-ray of the shoulder and clavicle reveal no fracture dislocations. There appears to be slight misalignment of the before meals joint which is likely secondary to an old ligamentous injury. Patient was given Toradol in the emergency department. She was advised to alternate between Tylenol and Motrin for pain control. She was advised to apply ice compress. Strict return primary's were thoroughly discussed the patient at the nursing agreeable. Case discussed with physician. Disposition Clinical Impression: Fall, Right shoulder injury Disposition: HOME SELF-CARE Condition: Stable Instructions (If sedation given, give patient instructions): Rotator Cuff Injury (ED) Additional Instructions: Follow-up with autism specialist. Return to emergency department if symptoms worsen. Is patient prescribed a controlled substance at d/c from ED?: No Referrals: [facility] [Primary Care Provider] - 1-2 days Andi Vogt DO [Doctor of Osteopathic Medicine] - 1-2 days Time of Disposition: 20:29
[2020-09-02] MEDS ORDERED: KETOROLAC 15 MG/ML 1 ML VIAL IM STA (19:46)
--- NOTE | 2020-09-02 20:20 | XR ---
EXAMINATION TYPE: XR shoulder complete RT DATE OF EXAM: 09/02/2020 COMPARISON: NONE HISTORY: Pain TECHNIQUE: 3 views FINDINGS: There is no fracture nor dislocation. Joint spaces are normal. There are no pathologic calc ifications. IMPRESSION: Negative right shoulder exam.
--- NOTE | 2020-09-02 20:22 | XR ---
EXAMINATION TYPE: XR clavicle RT DATE OF EXAM: 09/02/2020 COMPARISON: 07/10/2020 HISTORY: Pain TECHNIQUE: 2 views FINDINGS: There is slight malalignment of the AC joint. I see no fracture. Joint spaces are fairly no rmal. IMPRESSION: Mild malalignment of the AC joint unchanged compared to old exam and could relate to mini mal ligamentous old injury. No fracture seen.
[2020-09-02 20:27] VITALS: BP 105/67; PULSE 97; RESP 18
== END 2020-09-02 20:44 | disposition home or self-care (01) ==
LOC: EC 19:14
DX: S49.91XA Unspecified injury of right shoulder and upper arm, initial encounter (principal); F41.9 Anxiety disorder, unspecified; F31.9 Bipolar disorder, unspecified; F43.10 Post-traumatic stress disorder, unspecified; K21.9 Gastro-esophageal reflux disease without esophagitis; I25.2 Old myocardial infarction; G40.909 Epilepsy, unspecified, not intractable, without status epilepticus; G43.909 Migraine, unspecified, not intractable, without status migrainosus; Z79.899 Other long term (current) drug therapy; Z79.82 Long term (current) use of aspirin; Z87.891 Personal history of nicotine dependence; Z88.8 Allergy status to other drugs, medicaments and biological substances; Z88.5 Allergy status to narcotic agent; Z88.1 Allergy status to other antibiotic agents; Z88.2 Allergy status to sulfonamides; Z88.0 Allergy status to penicillin; Z91.012 Allergy to eggs; Z88.7 Allergy status to serum and vaccine; W01.0XXA Fall on same level from slipping, tripping and stumbling without subsequent striking against object, initial encounter; Y93.01 Activity, walking, marching and hiking; Y92.009 Unspecified place in unspecified non-institutional (private) residence as the place of occurrence of the external cause
CPT/HCPCS: 73000; 73030; 99283; 96372; J1885

== ENCOUNTER 2021-02-09 11:00 | Emergency (ER) | payer OTHER ==
[2021-02-09 11:37] VITALS: BP 97/64; PULSE 108; RESP 18; TEMP 97.2
[2021-02-09] MEDS ORDERED: SODIUM CHLORIDE 0.9% 1,000 ML IV STA (14:00)
[2021-02-09] MEDS ORDERED: ONDANSETRON 4 MG/2 ML VIAL IVP STA (14:00)
--- NOTE | 2021-02-09 14:08 | ED ---
Dizziness HPI - General Chief Complaint: Dizziness Stated Complaint: Vomiting Time Seen by Provider: 02/09/21 13:23 Source: patient Mode of arrival: ambulatory Limitations: no limitations - History of Present Illness Initial Comments: 35-year-old female presents to emergency Department with a chief complaint of dizziness where the room was spinning around her. Patient reports the symptoms began around 9 AM along with nausea one episode nonbilious and nonbloody vomiting. She also reported a slight headache which is since resolved. She denies any illicit numbness, visual changes, one-sided weakness or paresthesias. She denies any fevers or chills. States she had the second dose of Covid vaccine 3 days ago. Patient denies any chest pain shortness of breath. - Related Data Home Medications Medication Instructions Recorded Confirmed Metoprolol Tartrate [Lopressor] 25 mg PO BID 09/29/18 09/29/19 ARIPiprazole [Abilify] 20 mg PO DAILY 09/29/19 09/29/19 Aspirin EC [Ecotrin Low Dose] 81 mg PO DAILY 09/29/19 09/29/19 Citalopram Hydrobromide [CeleXA] 40 mg PO DAILY 09/29/19 09/29/19 Famotidine [Pepcid] 20 mg PO DAILY 09/29/19 09/29/19 Lacosamide [Vimpat] 100 mg PO BID 09/29/19 09/29/19 OXcarbazepine [Trileptal] 600 mg PO BID 09/29/19 09/29/19 Topiramate [Topamax] 50 mg PO BID 09/29/19 09/29/19 Previous Rx's Medication Instructions Recorded Metoprolol Tartrate [Lopressor] 12.5 mg PO BID #20 dose 09/30/19 Famotidine [Pepcid] 20 mg PO BID #5 tablet 10/06/19 predniSONE 50 mg PO DAILY #3 tab 10/06/19 Albuterol Inhaler (Mhu) [Ventolin 1 - 2 puff INHALATION Q6HR PRN #1 11/20/19 Hfa Inhaler (Mhu)] inhaler predniSONE 60 mg PO DAILY #30 tab 11/20/19 Albuterol Inhaler (Mhu) [Ventolin 1 - 2 puff INHALATION RT-Q6H PRN 12/12/19 Hfa Inhaler (Mhu)] #1 inhaler Amoxicillin/Potassium Clav 1 tab PO Q12HR #20 tab 12/12/19 [Augmentin 875-125 Tablet] predniSONE 50 mg PO DAILY #5 tab 12/12/19 guaiFENesin SYRUP 100MG/5ML 200 mg PO Q4-6H PRN #200 ml 01/21/20 [Robitussin] methylPREDNISolone [Medrol Dose 4 mg PO DIRECTED #1 pack 01/21/20 Pack] Benzonatate [Tessalon Perles] 100 mg PO TID PRN #15 capsule 04/05/20 methylPREDNISolone [Medrol Dose 4 mg PO DIRECTED #1 pack 04/05/20 Pack] Metoclopramide HCl [Reglan] 10 mg PO Q8HR PRN #15 tab 04/23/20 Ibuprofen [Motrin] 600 mg PO Q8HR PRN #20 tab 07/10/20 Allergies Allergy/AdvReac Type Severity Reaction Status Date / Time azithromycin Allergy Rash/Hives Verified 02/09/21 11:37 divalproex sodium Allergy "had Verified 02/09/21 11:37 [From Depakote] seizure when coming off" hydrocodone Allergy Rash/Hives Verified 02/09/21 11:37 phenytoin [From Dilantin] Allergy Unknown Verified 02/09/21 11:37 Quinolones Allergy Rash/Hives Verified 02/09/21 11:37 sulfamethoxazole Allergy Rash/Hives Verified 02/09/21 11:37 [From Bactrim] tramadol Allergy Rash/Hives Verified 02/09/21 11:37 trimethoprim [From Bactrim] Allergy Rash/Hives Verified 02/09/21 11:37 codeine AdvReac Vertigo Verified 02/09/21 11:37 diphenhydramine HCl AdvReac Rapid Verified 02/09/21 11:37 [From Benadryl] Heart Rate egg AdvReac Nausea & Verified 02/09/21 11:37 Vomiting Influenza Virus Vaccines AdvReac Nausea & Verified 02/09/21 11:37 Vomiting Review of Systems ROS Statement: Those systems with pertinent positive or pertinent negative responses have been documented in the HPI. ROS Other: All systems not noted in ROS Statement are negative. Past Medical History Past Medical History: Asthma, Chest Pain / Angina, GERD/Reflux, Myocardial Infarction ([place]), Seizure Disorder, Syncope Additional Past Medical History / Comment(s): migraines, last seizure 4 months ago [place] x 2, low blood pressures, irregular heart beat, tachycardia, Last Myocardial Infarction Date:: 10/2016 History of Any Multi-Drug Resistant Organisms: None Reported Past Surgical History: Cholecystectomy, Tubal Ligation Additional Past Surgical History / Comment(s): Tilt table test, wisdom teeth extraction. Past Anesthesia/Blood Transfusion Reactions: Previous Problems w/ Anesthesia Additional Past Anesthesia/Blood Transfusion Reaction / Comment(s): "I get anxious when I wake up when my fiance is not there" Past Psychological History: ADD/ADHD, Anxiety, Bipolar, Depression, PTSD Smoking Status: Former smoker Past Alcohol Use History: None Reported Past Drug Use History: None Reported - Past Family History Father Family Medical History: Cancer Additional Family Medical History / Comment(s): Father at age 61 from lung CA Mother Family Medical History: No Reported History, Seizure Disorder Additional Family Medical History / Comment(s): Mother is alive with history of bipolar/schitzophrenia Brother(s) Additional Family Medical History / Comment(s): She has one half brother that abuses cocaine and methamphetamines. She does not have any contact with him. Tri mack has 1 sister with no major medical problems. Patient does not have any children. General Exam Limitations: no limitations General appearance: alert, in no apparent distress Head exam: Present: atraumatic, normocephalic, normal inspection Eye exam: Present: normal appearance, PERRL, EOMI Pupils: Present: normal accommodation ENT exam: Present: normal exam, normal oropharynx, mucous membranes moist, TM's normal bilaterally, normal external ear exam Neck exam: Present: normal inspection, full ROM. Absent: tenderness Respiratory exam: Present: normal lung sounds bilaterally. Absent: respiratory distress Cardiovascular Exam: Present: regular rate, normal rhythm, normal heart sounds. Absent: systolic murmur GI/Abdominal exam: Present: soft. Absent: distended, tenderness, guarding, rebound Extremities exam: Present: normal inspection, full ROM, normal capillary refill. Absent: tenderness, pedal edema Back exam: Present: normal inspection, full ROM. Absent: tenderness, CVA tenderness (R), CVA tenderness (L) Neurological exam: Present: alert, oriented X3 Psychiatric exam: Present: normal affect, normal mood Skin exam: Present: warm, dry, intact, normal color Course Vital Signs 02/09/21 11:34 Temperature 97.2 F L Pulse Rate 108 H Respiratory 18 Rate Blood Pressure 97/64 O2 Sat by Pulse 96 Oximetry EKG Findings - EKG Comments: EKG Findings:: QT prolongation, sinus rhythm. ventricular rate 100, WA 170, QRS 112, QTC 495. Medical Decision Making - Medical Decision Making 35-year-old female presents to the emergency department with a chief complaint of dizziness. On physical examination, patient is well-appearing rest incomplete. She was able to walk without any difficulties. EKG showed some QT prolongation of 492. I did review her previous EKG and it was only slightly prolonged. CBC shows mild leukocytosis of 12 a. UA was unremarkable. Negative urine . At this time, another blood draw was necessary due to violation of the previous sample. At this time, patient states she does not want to wait anymore and would like to sign out AMA. She does report feeling better after IV fluids and Zofran. Patient did give a sample but was able to leave. We did receive results which revealed normal magnesium level I.7. She did have a slightly hemolyzed sample which revealed a potassium of 5.2. Case discussed with Dr. Corona. - Lab Data Result diagrams: 02/09/21 14:15 02/09/21 15:14 Lab Results 02/09/21 02/09/21 02/09/21 Range/Units 13:57 13:57 14:15 WBC 12.0 H (3.8-10.6) k/uL RBC 4.70 (3.80-5.40) m/uL Hgb 14.4 (11.4-16.0) gm/dL Hct 42.7 (34.0-46.0) % MCV 90.9 (80.0-100.0) fL MCH 30.7 (25.0-35.0) pg MCHC 33.8 (31.0-37.0) g/dL RDW 12.8 (11.5-15.5) % Plt Count 251 (150-450) k/uL MPV 7.0 Neutrophils % 83 % Lymphocytes % 10 % Monocytes % 6 % Eosinophils % 0 % Basophils % 0 % Neutrophils # 9.9 H (1.3-7.7) k/uL Lymphocytes # 1.2 (1.0-4.8) k/uL Monocytes # 0.7 (0-1.0) k/uL Eosinophils # 0.0 (0-0.7) k/uL Basophils # 0.0 (0-0.2) k/uL Sodium (137-145) mmol/L Potassium (3.5-5.1) mmol/L Chloride (98-107) mmol/L Carbon Dioxide (22-30) mmol/L Anion Gap mmol/L BUN (7-17) mg/dL Creatinine (0.52-1.04) mg/dL Est GFR (CKD-EPI)AfAm (>60 ml/min/1.73 sqM) Est GFR (CKD-EPI)NonAf (>60 ml/min/1.73 sqM) Glucose (74-99) mg/dL Calcium (8.4-10.2) mg/dL Magnesium (1.6-2.3) mg/dL Total Bilirubin (0.2-1.3) mg/dL AST (14-36) U/L ALT (4-34) U/L Alkaline Phosphatase (38-126) U/L Total Protein (6.3-8.2) g/dL Albumin (3.5-5.0) g/dL Urine Color Yellow Urine Appearance Cloudy H (Clear) Urine pH 6.5 (5.0-8.0) Ur Specific [place] 1.018 (1.001-1.035) Urine Protein Negative (Negative) Urine Glucose (UA) Negative (Negative) Urine Ketones Negative (Negative) Urine Blood Negative (Negative) Urine Nitrite Negative (Negative) Urine Bilirubin Negative (Negative) Urine Urobilinogen <2.0 (<2.0) mg/dL Ur Leukocyte Esterase Negative (Negative) Urine RBC 2 (0-5) /hpf Urine WBC 2 (0-5) /hpf Ur Squamous Epith Cells 5 H (0-4) /hpf Amorphous Sediment Rare H (None) /hpf Urine Mucus Rare H (None) /hpf Urine HCG, Qual Not Detected (Not Detectd) 02/09/21 Range/Units 15:14 WBC (3.8-10.6) k/uL RBC (3.80-5.40) m/uL Hgb (11.4-16.0) gm/dL Hct (34.0-46.0) % MCV (80.0-100.0) fL MCH (25.0-35.0) pg MCHC (31.0-37.0) g/dL RDW (11.5-15.5) % Plt Count (150-450) k/uL MPV Neutrophils % % Lymphocytes % % Monocytes % % Eosinophils % % Basophils % % Neutrophils # (1.3-7.7) k/uL Lymphocytes # (1.0-4.8) k/uL Monocytes # (0-1.0) k/uL Eosinophils # (0-0.7) k/uL Basophils # (0-0.2) k/uL Sodium 137 (137-145) mmol/L Potassium 5.2 H (3.5-5.1) mmol/L Chloride 109 H (98-107) mmol/L Carbon Dioxide 18 L (22-30) mmol/L Anion Gap 10 mmol/L BUN 9 (7-17) mg/dL Creatinine 0.71 (0.52-1.04) mg/dL Est GFR (CKD-EPI)AfAm >90 (>60 ml/min/1.73 sqM) Est GFR (CKD-EPI)NonAf >90 (>60 ml/min/1.73 sqM) Glucose 104 H (74-99) mg/dL Calcium 8.8 (8.4-10.2) mg/dL Magnesium 1.7 (1.6-2.3) mg/dL Total Bilirubin 0.4 (0.2-1.3) mg/dL AST 35 (14-36) U/L ALT 44 H (4-34) U/L Alkaline Phosphatase 105 (38-126) U/L Total Protein 7.1 (6.3-8.2) g/dL Albumin 3.8 (3.5-5.0) g/dL Urine Color Urine Appearance (Clear) Urine pH (5.0-8.0) Ur Specific [place] (1.001-1.035) Urine Protein (Negative) Urine Glucose (UA) (Negative) Urine Ketones (Negative) Urine Blood (Negative) Urine Nitrite (Negative) Urine Bilirubin (Negative) Urine Urobilinogen (<2.0) mg/dL Ur Leukocyte Esterase (Negative) Urine RBC (0-5) /hpf Urine WBC (0-5) /hpf Ur Squamous Epith Cells (0-4) /hpf Amorphous Sediment (None) /hpf Urine Mucus (None) /hpf Urine HCG, Qual (Not Detectd) Disposition Clinical Impression: Dizziness Disposition: Left Against Medical Advice Condition: Stable Instructions (If sedation given, give patient instructions): Dizziness (ED) Additional Instructions: Please return to the Emergency Department if symptoms worsen or any other conc erns. Is patient prescribed a controlled substance at d/c from ED?: No Referrals: [facility] [Primary Care Provider] - 1-2 days Time of Disposition: 14:57
[2021-02-09 14:27] LABS: Amorphous Sediment,Urine Rare /hpf; Appearance,Urine Cloudy (Clear); Bilirubin,Urine Negative (Negative); Blood,Urine Negative (Negative); Color,Urine Yellow; Glucose,Urine (UA) Negative (Negative); Ketones,Urine Negative (Negative); Leukocyte Esterase,Urine Negative (Negative); Mucus,Urine Rare /hpf; Nitrite,Urine Negative (Negative); PH, Urine 6.5 (5.0-8.0); Protein,Urine Negative (Negative); RBC,Urine 2 /hpf (0-5); Specific Gravity,Urine 1.018 (1.001-1.035); Squamous Epithelial Cell,Urine 5 /hpf (0-4); Urobilinogen,Urine <2.0 mg/dL (<2.0); WBC,Urine 2 /hpf (0-5)
[2021-02-09 14:30] LABS: Basophils % (A) 0 %; Eosinophils % (A) 0 %; HCT 42.7 % (34.0-46.0); HGB 14.4 gm/dL (11.4-16.0); Lymphocytes # (A) 1.2 k/uL (1.0-4.8); Lymphocytes % (A) 10 %; MCH 30.7 pg (25.0-35.0); MCHC 33.8 g/dL (31.0-37.0); MCV 90.9 fL (80.0-100.0); Monocytes # (A) 0.7 k/uL (0-1.0); Monocytes % (A) 6 %; Neutrophils # (A) 9.9 k/uL (1.3-7.7); Neutrophils % (A) 83 %; Platelet Count 251 k/uL (150-450); RDW 12.8 % (11.5-15.5)
[2021-02-09 15:37] LABS: ALT 44 U/L (4-34); AST 35 U/L (14-36); African American GFR (CKD) >90 (>60 ml/min/1.73 sqM); Albumin 3.8 g/dL (3.5-5.0); Alkaline Phosphatase 105 U/L (38-126); Anion Gap 10 mmol/L; Blood Urea Nitrogen 9 mg/dL (7-17); Calcium 8.8 mg/dL (8.4-10.2); Carbon Dioxide 18 mmol/L (22-30); Chloride 109 mmol/L (98-107); Glucose 104 mg/dL (74-99); Magnesium 1.7 mg/dL (1.6-2.3); Non-African American GFR(CKD) >90 (>60 ml/min/1.73 sqM); Sodium 137 mmol/L (137-145); Total Bilirubin 0.4 mg/dL (0.2-1.3); Total Protein 7.1 g/dL (6.3-8.2)
[2021-02-09 15:44] LABS: Potassium 5.2 mmol/L (3.5-5.1)
== END 2021-02-09 15:23 | disposition left against medical advice (07) ==
LOC: EC 11:00
DX: R42 Dizziness and giddiness (principal); F41.9 Anxiety disorder, unspecified; G40.909 Epilepsy, unspecified, not intractable, without status epilepticus; I25.2 Old myocardial infarction; J45.909 Unspecified asthma, uncomplicated; K21.9 Gastro-esophageal reflux disease without esophagitis; Z87.891 Personal history of nicotine dependence; Z79.1 Long term (current) use of non-steroidal anti-inflammatories (NSAID); Z79.52 Long term (current) use of systemic steroids; Z79.82 Long term (current) use of aspirin; Z80.1 Family history of malignant neoplasm of trachea, bronchus and lung; Z88.1 Allergy status to other antibiotic agents; Z88.2 Allergy status to sulfonamides; Z88.5 Allergy status to narcotic agent; Z88.8 Allergy status to other drugs, medicaments and biological substances; Z53.29 Procedure and treatment not carried out because of patient's decision for other reasons
CPT/HCPCS: 99284; 96374; 96361; 36415; 93005; 80053; 83735; 85025; 81001; 81025; J2405

== ENCOUNTER 2021-03-24 21:56 | Emergency (ER) | payer OTHER ==
[2021-03-24] MEDS ORDERED: ACETAMINOPHEN TAB 500 MG TAB PO STA (22:17)
[2021-03-24] MEDS ORDERED: SODIUM CHLORIDE 0.9% 1,000 ML IV STA (22:25)
--- NOTE | 2021-03-24 22:34 | XR ---
EXAMINATION TYPE: XR chest 2V DATE OF EXAM: 03/24/2021 COMPARISON: 04/05/2020 HISTORY: Cough TECHNIQUE: 2 views FINDINGS: Heart and mediastinum are normal. Lungs are clear. Diaphragm is normal. Bony thorax appears intact. IMPRESSION: Normal chest. No change.
[2021-03-24] MEDS ORDERED: cefTRIAXone IN SWFI 1,000 MG/10 ML SYRINGE IVP STA (22:36)
[2021-03-24 22:45] LABS: Basophils % (A) 1 %; Eosinophils # (A) 0.2 k/uL (0-0.7); Eosinophils % (A) 3 %; HCT 41.4 % (34.0-46.0); Lymphocytes # (A) 2.3 k/uL (1.0-4.8); Lymphocytes % (A) 31 %; MCH 30.1 pg (25.0-35.0); MCHC 33.9 g/dL (31.0-37.0); MCV 88.9 fL (80.0-100.0); Mean Platelet Volume 6.5; Monocytes % (A) 14 %; Neutrophils # (A) 3.8 k/uL (1.3-7.7); Neutrophils % (A) 50 %; Platelet Count 249 k/uL (150-450); RBC 4.66 m/uL (3.80-5.40); RDW 13.3 % (11.5-15.5); WBC 7.6 k/uL (3.8-10.6)
[2021-03-24 22:56] LABS: ALT 34 U/L (4-34); AST 23 U/L (14-36); African American GFR (CKD) >90 (>60 ml/min/1.73 sqM); Albumin 4.2 g/dL (3.5-5.0); Alkaline Phosphatase 117 U/L (38-126); Anion Gap 9 mmol/L; Blood Urea Nitrogen 9 mg/dL (7-17); Calcium 9.5 mg/dL (8.4-10.2); Carbon Dioxide 22 mmol/L (22-30); Chloride 108 mmol/L (98-107); Glucose 93 mg/dL (74-99); Non-African American GFR(CKD) >90 (>60 ml/min/1.73 sqM); Potassium 3.9 mmol/L (3.5-5.1); Sodium 139 mmol/L (137-145); Total Bilirubin 0.2 mg/dL (0.2-1.3); Total Protein 7.4 g/dL (6.3-8.2)
--- NOTE | 2021-03-24 23:14 | ED ---
General Adult HPI - General Chief complaint: Upper Respiratory Infection Stated complaint: Body Aches, Vomiting Time Seen by Provider: 03/24/21 22:16 Source: patient Mode of arrival: ambulatory Limitations: no limitations - History of Present Illness Initial comments: 35-year-old female presents to the emergency department with a chief complaint cough and fever. Patient reports his been ongoing over the past week. She does have history of asthma but states there is no wheezing. States she has been using her albuterol inhaler per usual. States she saw her primary care physician was started on azithromycin today. She does report having fever and chills and she has been taking ltve-aml-apalfcr antipyretics over the last 2 days. Fevers intermittent. Denies any chest pain or shortness of breath. - Related Data Home Medications Medication Instructions Recorded Confirmed Metoprolol Tartrate [Lopressor] 25 mg PO BID 09/29/18 09/29/19 ARIPiprazole [Abilify] 20 mg PO DAILY 09/29/19 09/29/19 Aspirin EC [Ecotrin Low Dose] 81 mg PO DAILY 09/29/19 09/29/19 Citalopram Hydrobromide [CeleXA] 40 mg PO DAILY 09/29/19 09/29/19 Famotidine [Pepcid] 20 mg PO DAILY 09/29/19 09/29/19 Lacosamide [Vimpat] 100 mg PO BID 09/29/19 09/29/19 OXcarbazepine [Trileptal] 600 mg PO BID 09/29/19 09/29/19 Topiramate [Topamax] 50 mg PO BID 09/29/19 09/29/19 Previous Rx's Medication Instructions Recorded Metoprolol Tartrate [Lopressor] 12.5 mg PO BID #20 dose 09/30/19 Famotidine [Pepcid] 20 mg PO BID #5 tablet 10/06/19 predniSONE 50 mg PO DAILY #3 tab 10/06/19 Albuterol Inhaler (Mhu) [Ventolin 1 - 2 puff INHALATION Q6HR PRN #1 11/20/19 Hfa Inhaler (Mhu)] inhaler predniSONE 60 mg PO DAILY #30 tab 11/20/19 Albuterol Inhaler (Mhu) [Ventolin 1 - 2 puff INHALATION RT-Q6H PRN 12/12/19 Hfa Inhaler (Mhu)] #1 inhaler Amoxicillin/Potassium Clav 1 tab PO Q12HR #20 tab 12/12/19 [Augmentin 875-125 Tablet] predniSONE 50 mg PO DAILY #5 tab 12/12/19 guaiFENesin SYRUP 100MG/5ML 200 mg PO Q4-6H PRN #200 ml 01/21/20 [Robitussin] methylPREDNISolone [Medrol Dose 4 mg PO DIRECTED #1 pack 01/21/20 Pack] Benzonatate [Tessalon Perles] 100 mg PO TID PRN #15 capsule 04/05/20 methylPREDNISolone [Medrol Dose 4 mg PO DIRECTED #1 pack 04/05/20 Pack] Metoclopramide HCl [Reglan] 10 mg PO Q8HR PRN #15 tab 04/23/20 Ibuprofen [Motrin] 600 mg PO Q8HR PRN #20 tab 07/10/20 predniSONE 50 mg PO DAILY #5 tab 03/24/21 Allergies Allergy/AdvReac Type Severity Reaction Status Date / Time azithromycin Allergy Rash/Hives Verified 03/24/21 22:11 divalproex sodium Allergy "had Verified 03/24/21 22:11 [From Depakote] seizure when coming off" hydrocodone Allergy Rash/Hives Verified 03/24/21 22:11 phenytoin [From Dilantin] Allergy Unknown Verified 03/24/21 22:11 Quinolones Allergy Rash/Hives Verified 03/24/21 22:11 sulfamethoxazole Allergy Rash/Hives Verified 03/24/21 22:11 [From Bactrim] tramadol Allergy Rash/Hives Verified 03/24/21 22:11 trimethoprim [From Bactrim] Allergy Rash/Hives Verified 03/24/21 22:11 codeine AdvReac Vertigo Verified 03/24/21 22:11 diphenhydramine HCl AdvReac Rapid Verified 03/24/21 22:11 [From Benadryl] Heart Rate egg AdvReac Nausea & Verified 03/24/21 22:11 Vomiting Influenza Virus Vaccines AdvReac Nausea & Verified 03/24/21 22:11 Vomiting Review of Systems ROS Statement: Those systems with pertinent positive or pertinent negative responses have been documented in the HPI. ROS Other: All systems not noted in ROS Statement are negative. Past Medical History Past Medical History: Asthma, Chest Pain / Angina, GERD/Reflux, Myocardial Infarction ([place]), Seizure Disorder, Syncope Additional Past Medical History / Comment(s): migraines, last seizure 4 months ago [place] x 2, low blood pressures, irregular heart beat, tachycardia, Last Myocardial Infarction Date:: 10/2016 History of Any Multi-Drug Resistant Organisms: None Reported Past Surgical History: Cholecystectomy, Tubal Ligation Additional Past Surgical History / Comment(s): Tilt table test, wisdom teeth extraction. Past Anesthesia/Blood Transfusion Reactions: Previous Problems w/ Anesthesia Additional Past Anesthesia/Blood Transfusion Reaction / Comment(s): "I get an xious when I wake up when my fiance is not there" Past Psychological History: ADD/ADHD, Anxiety, Bipolar, Depression, PTSD Smoking Status: Former smoker Past Alcohol Use History: None Reported Past Drug Use History: None Reported - Past Family History Father Family Medical History: Cancer Additional Family Medical History / Comment(s): Father at age 61 from lung CA Mother Family Medical History: No Reported History, Seizure Disorder Additional Family Medical History / Comment(s): Mother is alive with history of bipolar/schitzophrenia Brother(s) Additional Family Medical History / Comment(s): She has one half brother that abuses cocaine and methamphetamines. She does not have any contact with him. Patient has 1 sister with no major medical problems. Patient does not have any children. General Exam Limitations: no limitations General appearance: alert, in no apparent distress Head exam: Present: atraumatic, normocephalic, normal inspection Eye exam: Present: normal appearance, PERRL, EOMI Pupils: Present: normal accommodation ENT exam: Present: normal exam, normal oropharynx, mucous membranes moist, TM's normal bilaterally, normal external ear exam Neck exam: Present: normal inspection, full ROM. Absent: tenderness, lymphadenopathy Respiratory exam: Present: normal lung sounds bilaterally. Absent: respiratory distress, wheezes, rales, rhonchi, stridor Cardiovascular Exam: Present: regular rate, normal rhythm, normal heart sounds GI/Abdominal exam: Present: soft. Absent: distended, tenderness, guarding, rebound, rigid Extremities exam: Present: normal inspection, full ROM, normal capillary refill. Absent: tenderness Back exam: Present: normal inspection, full ROM. Absent: tenderness, CVA tenderness (R), CVA tenderness (L) Neurological exam: Present: alert, oriented X3 Psychiatric exam: Present: normal affect, normal mood Skin exam: Present: warm, dry, intact, normal color Course Vital Signs 03/24/21 03/24/21 22:11 22:12 Temperature 99.7 F H Pulse Rate 118 H Respiratory 16 20 Rate Blood Pressure 112/71 Medical Decision Making - Medical Decision Making 35-year-old female presenting to the emergency department with a chief complaint of cough and fever. On physical examination, patient is well-appearing. Lungs are clear to auscultation. She was initially tachycardic and borderline febrile. She was given IV fluids, 1 g Rocephin. CBC CMP unremarkable. Covid is negative. She does not have any urinary symptoms. I will give the patient a short course of prednisone. She is currently on a Z-Toni that was prescribed a PCP. Strict return parameters were thoroughly discussed the patient is an ascending agreeable. Case discussed with - Lab Data Result diagrams: 03/24/21 22:33 03/24/21 22:33 Lab Results 03/24/21 03/24/21 03/24/21 Range/Units 22:33 22:33 22:39 WBC 7.6 (3.8-10.6) k/uL RBC 4.66 (3.80-5.40) m/uL Hgb 14.0 (11.4-16.0) gm/dL Hct 41.4 (34.0-46.0) % MCV 88.9 (80.0-100.0) fL MCH 30.1 (25.0-35.0) pg MCHC 33.9 (31.0-37.0) g/dL RDW 13.3 (11.5-15.5) % Plt Count 249 (150-450) k/uL MPV 6.5 Neutrophils % 50 % Lymphocytes % 31 % Monocytes % 14 % Eosinophils % 3 % Basophils % 1 % Neutrophils # 3.8 (1.3-7.7) k/uL Lymphocytes # 2.3 (1.0-4.8) k/uL Monocytes # 1.0 (0-1.0) k/uL Eosinophils # 0.2 (0-0.7) k/uL Basophils # 0.0 (0-0.2) k/uL Sodium 139 (137-145) mmol/L Potassium 3.9 (3.5-5.1) mmol/L Chloride 108 H (98-107) mmol/L Carbon Dioxide 22 (22-30) mmol/L Anion Gap 9 mmol/L BUN 9 (7-17) mg/dL Creatinine 0.75 (0.52-1.04) mg/dL Est GFR (CKD-EPI)AfAm >90 (>60 ml/min/1.73 sqM) Est GFR (CKD-EPI)NonAf >90 (>60 ml/min/1.73 sqM) Glucose 93 (74-99) mg/dL Calcium 9.5 (8.4-10.2) mg/dL Total Bilirubin 0.2 (0.2-1.3) mg/dL AST 23 (14-36) U/L ALT 34 (4-34) U/L Alkaline Phosphatase 117 (38-126) U/L Total Protein 7.4 (6.3-8.2) g/dL Albumin 4.2 (3.5-5.0) g/dL Coronavirus (PCR) Not Detected (Not Detectd) Disposition Clinical Impression: Bronchitis Disposition: HOME SELF-CARE Condition: Stable Instructions (If sedation given, give patient instructions): Acute Bronchitis (ED) Additional Instructions: Please return to the Emergency Department if symptoms worsen or any other concerns. Prescriptions: predniSONE 50 mg PO DAILY #5 tab Is patient prescribed a controlled substance at d/c from ED?: No Referrals: Cecile Wright MD [Primary Care Provider] - 1-2 days Time of Disposition: 23:14
[2021-03-24 23:30] VITALS: BP 105/63; PULSE 100; RESP 18; TEMP 98.9
== END 2021-03-24 23:30 | disposition home or self-care (01) ==
LOC: EC 21:56
DX: J40 Bronchitis, not specified as acute or chronic (principal); R11.10 Vomiting, unspecified; J45.909 Unspecified asthma, uncomplicated; K21.9 Gastro-esophageal reflux disease without esophagitis; I25.2 Old myocardial infarction; G43.909 Migraine, unspecified, not intractable, without status migrainosus; G40.909 Epilepsy, unspecified, not intractable, without status epilepticus; F31.9 Bipolar disorder, unspecified; F41.9 Anxiety disorder, unspecified; F90.9 Attention-deficit hyperactivity disorder, unspecified type; Z20.822 Contact with and (suspected) exposure to COVID-19; Z87.891 Personal history of nicotine dependence; Z79.51 Long term (current) use of inhaled steroids; Z79.82 Long term (current) use of aspirin
CPT/HCPCS: 36415; 80053; 85025; 87635; 71046; 99284; 96374; 96361; J0696

== ENCOUNTER 2021-05-23 11:44 | Emergency (ER) | payer OTHER ==
--- NOTE | 2021-05-23 14:11 | ED ---
Psych HPI - General Chief Complaint: Psychiatric Symptoms Stated Complaint: withdrawals Source: patient, RN notes reviewed Mode of arrival: ambulatory - History of Present Illness Initial Comments: Patient is a 35-year-old female that presents to emergency department with acute anxiety stating that she is having education withdrawals and other life issues. She notes that she does not want stay in hospital at all if possible. She notes that she takes several antidepressants and mood stabilizers which she has run out of and she is experiencing withdrawals She was otherwise a well-appearing 35-year-old female in no apparent pain. She denied any chest pain shortness of breath headache nausea vomiting diarrhea constipation fever fatigue chills. - Related Data Home Medications Medication Instructions Recorded Confirmed OXcarbazepine [Trileptal] 600 mg PO BID 09/29/19 05/23/21 ARIPiprazole [Abilify] 30 mg PO DAILY 05/23/21 05/23/21 Albuterol Nebulized [Ventolin 2.5 mg INHALATION RT-TID PRN 05/23/21 05/23/21 Nebulized] Albuterol Sulfate [Proair Hfa] 2 puff INHALATION RT-QID PRN 05/23/21 05/23/21 Budesonide/Formoterol Fumarate 2 puff INHALATION RT-BID 05/23/21 05/23/21 [Symbicort 160-4.5 Mcg Inhaler] Butalb/APAP/Caff 50-325-40Mg 1 tab PO Q8H PRN 05/23/21 05/23/21 [Fioricet 50-325-40] Cariprazine HCl [Vraylar] 3 mg PO DAILY 05/23/21 05/23/21 Cariprazine HCl [Vraylar] 6 mg PO HS 05/23/21 05/23/21 Lacosamide [Vimpat] 200 mg PO BID 05/23/21 05/23/21 Meloxicam [Mobic] 7.5 mg PO DAILY 05/23/21 05/23/21 Topiramate [Trokendi Xr] 100 mg PO DAILY 05/23/21 05/23/21 Venlafaxine HCl [Effexor XR] 75 mg PO DAILY 05/23/21 05/23/21 cloNIDine HCL [Catapres] 0.1 mg PO HS 05/23/21 05/23/21 guanFACINE HCL [Intuniv] 2 mg PO BID 05/23/21 05/23/21 hydrOXYzine pamoate [hydrOXYzine 100 mg PO TID PRN 05/23/21 05/23/21 PAMOATE] lamoTRIgine [LaMICtal] 50 mg PO BID 05/23/21 05/23/21 ondansetron HCL [Zofran] 8 mg PO Q12HR PRN 05/23/21 05/23/21 traZODone HCL 150 mg PO HS 05/23/21 05/23/21 Previous Rx's Medication Instructions Recorded Famotidine [Pepcid] 20 mg PO BID #5 tablet 10/06/19 Ibuprofen [Motrin] 600 mg PO Q8HR PRN #20 tab 07/10/20 Allergies Allergy/AdvReac Type Severity Reaction Status Date / Time azithromycin Allergy Rash/Hives Verified 05/23/21 13:24 divalproex sodium Allergy "had Verified 05/23/21 13:24 [From Depakote] seizure when coming off" hydrocodone Allergy Rash/Hives Verified 05/23/21 13:24 phenytoin [From Dilantin] Allergy Unknown Verified 05/23/21 13:24 Quinolones Allergy Rash/Hives Verified 05/23/21 13:24 sulfamethoxazole Allergy Rash/Hives Verified 05/23/21 13:24 [From Bactrim] tramadol Allergy Rash/Hives Verified 05/23/21 13:24 trimethoprim [From Bactrim] Allergy Rash/Hives Verified 05/23/21 13:24 codeine AdvReac Vertigo Verified 05/23/21 13:24 diphenhydramine HCl AdvReac Rapid Verified 05/23/21 13:24 [From Benadryl] Heart Rate egg AdvReac Nausea & Verified 05/23/21 13:24 Vomiting Influenza Virus Vaccines AdvReac Nausea & Verified 05/23/21 13:24 Vomiting Review of Systems ROS Statement: Those systems with pertinent positive or pertinent negative responses have been documented in the HPI. ROS Other: All systems not noted in ROS Statement are negative. Past Medical History Past Medical History: Asthma, Chest Pain / Angina, GERD/Reflux, Myocardial Infarction ([place]), Seizure Disorder, Syncope Additional Past Medical History / Comment(s): migraines, last seizure 4 months ago [place] x 2, low blood pressures, irregular heart beat, tachycardia, Last Myocardial Infarction Date:: 10/2016 History of Any Multi-Drug Resistant Organisms: None Reported Past Surgical History: Cholecystectomy, Tubal Ligation Additional Past Surgical History / Comment(s): Tilt table test, wisdom teeth extraction. Past Anesthesia/Blood Transfusion Reactions: Previous Problems w/ Anesthesia Additional Past Anesthesia/Blood Transfusion Reaction / Comment(s): "I get anxious when I wake up when my fiance is not there" Past Psychological History: ADD/ADHD, Anxiety, Bipolar, Depression, PTSD Smoking Status: Former smoker Past Alcohol Use History: None Reported Past Drug Use History: None Reported - Past Family History Father Family Medical History: Cancer Additional Family Medical History / Comment(s): Father at age 61 from lung CA Mother Family Medical History: No Reported History, Seizure Disorder Additional Family Medical History / Comment(s): Mother is alive with history of bipolar/schitzophrenia Brother(s) Additional Family Medical History / Comment(s): She has one half brother that abuses cocaine and methamphetamines. She does not have any contact with him. Patient has 1 sister with no major medical problems. Patient does not have any children. General Exam Limitations: no limitations General appearance: alert, in no apparent distress, anxious Head exam: Present: atraumatic, normocephalic, normal inspection Eye exam: Present: normal appearance, PERRL, EOMI. Absent: scleral icterus, conjunctival injection, periorbital swelling Neck exam: Present: normal inspection Respiratory exam: Present: normal lung sounds bilaterally. Absent: respiratory distress, wheezes, rales, rhonchi, stridor Cardiovascular Exam: Present: regular rate, normal rhythm, normal heart sounds. Absent: systolic murmur, diastolic murmur, rubs, gallop, clicks Extremities exam: Present: normal inspection, full ROM, normal capillary refill. Absent: tenderness, pedal edema, joint swelling, calf tenderness Neurological exam: Present: alert, oriented X3 Psychiatric exam: Present: normal affect, anxious. Absent: homicidal ideation, suicidal ideation Skin exam: Present: warm, dry, intact, normal color. Absent: rash Course Vital Signs 05/23/21 11:50 Temperature 98.5 F Pulse Rate 118 H Respiratory 20 Rate O2 Sat by Pulse 97 Oximetry Medical Decision Making - Medical Decision Making 35-year-old female complaining of medication withdrawals and being very anxious. Urine drug screen and alcohol breath test ordered. [facility] was made aware. Case discussed with Dr. Orozco. Patient will be discharged with safety plan from [facility]. Disposition Clinical Impression: Acute anxiety Disposition: HOME SELF-CARE Condition: Stable Instructions (If sedation given, give patient instructions): Generalized Anxiety Disorder (ED) Additional Instructions: Please return to the Emergency Department if symptoms worsen or any other concerns. Follow-up with primary care in 1-2 days. Use resources given to find a therapist.. Is patient prescribed a controlled substance at d/c from ED?: No Referrals: Cecile Wright MD [Primary Care Provider] - 1-2 days Time of Disposition: 14:11
[2021-05-23 14:33] VITALS: BP 100/75; PULSE 106; RESP 18; TEMP 98.4
== END 2021-05-23 14:31 | disposition home or self-care (01) ==
LOC: EC 11:44
DX: F41.9 Anxiety disorder, unspecified (principal); J45.909 Unspecified asthma, uncomplicated; I25.2 Old myocardial infarction; G40.909 Epilepsy, unspecified, not intractable, without status epilepticus; G43.909 Migraine, unspecified, not intractable, without status migrainosus; F90.9 Attention-deficit hyperactivity disorder, unspecified type; F32.9 Major depressive disorder, single episode, unspecified; F43.10 Post-traumatic stress disorder, unspecified; Z79.899 Other long term (current) drug therapy
CPT/HCPCS: 99283

== ENCOUNTER → 2023-05-20 | Outpatient (CLI) | payer OTHER ==
[2023-05-20 20:37] LABS: ALT 21 U/L (8-44); AST 16 U/L (13-35); Albumin 4.3 d/dL (3.8-4.9); Albumin/Globulin Ratio 1.43 Ratio (1.60-3.17); Alkaline Phosphatase 82 U/L (41-126); Blood Urea Nitrogen 15.2 mg/dL (9.0-27.0); Calcium 9.2 mg/dL (8.7-10.3); Carbon Dioxide 23.6 mmol/L (21.6-31.8); Chloride 105 mmol/L (96-109); Glucose 70 mg/dL (70-110); Potassium 4.7 mmol/L (3.5-5.5); Sodium 137 mmol/L (135-145); Total Bilirubin <0.2 mg/dL (0.3-1.2); Total Protein 7.3 d/dL (6.2-8.2)
[2023-05-20 20:51] LABS: Basophils # (A) 0.03 X 10*3/uL (0.00-0.10); Basophils % (A) 0.4 %; Eosinophils # (A) 0.08 X 10*3/uL (0.04-0.35); Eosinophils % (A) 1.1 %; HCT 43.8 % (37.2-46.3); HGB 14.2 d/dL (12.0-15.0); Lymphocytes # (A) 2.25 X 10*3/uL (0.90-5.00); Lymphocytes % (A) 32.3 %; MCH 31.8 pg (27.0-32.0); MCHC 32.4 d/dL (32.0-37.0); MCV 98.2 FL (80.0-97.0); Mean Platelet Volume 9.1 FL (9.5-12.2); Monocytes # (A) 0.91 X 10*3/uL (0.20-1.00); Monocytes % (A) 13.1 %; NRBC Per 100 WBC 0 X 10*3/uL (0.00-0.01); Neutrophils # (A) 3.67 X 10*3/uL (1.80-7.70); Neutrophils % (A) 52.8 %; Platelet Count 252 X 10*3/uL (140-440); RBC 4.46 X 10*6/uL (4.10-5.20); RDW 13.8 % (11.5-14.5); WBC 6.96 X 10*3/uL (4.50-10.00)
[2023-05-20 21:45] LABS: Gliadin AB IgA, Deaminated Negative (Negative); Gliadin AB IgA, Unit <0.5 U/mL; Gliadin AB IgG, Deaminated Negative (Negative); Gliadin AB IgG, Unit <0.4 U/mL
[2023-05-20 22:13] LABS: Erythrocyte Sedimentation Rate 9 mm/Hr (0-20)
== END | disposition home or self-care (01) ==
LOC: LABWHC1 13:23
PROVIDERS: ATTEND Nurse Practitioner Family
DX: R19.4 Change in bowel habit (principal)
CPT/HCPCS: 36415; 80053; 83516; 85025; 85652; 86140

== ENCOUNTER 2023-05-25 17:40 | Emergency (ER) | payer OTHER ==
[2023-05-25 17:44] VITALS: TEMP 99
--- NOTE | 2023-05-25 18:12 | XR ---
EXAMINATION TYPE: XR chest 2V DATE OF EXAM: 05/25/2023 6:08 PM COMPARISON: Chest radiographs from 03/24/2021 TECHNIQUE: XR chest 2V Frontal and lateral views of the chest. CLINICAL INDICATION:Female, 37 years old with history of cough; FINDINGS: Lungs/Pleura: There is no evidence of pleural effusion, focal consolidation, or pneumothorax. Pulmonary vascularity: Unremarkable. Heart/mediastinum: Cardiomediastinal silhouette is unremarkable. Musculoskeletal: No acute osseous pathology. IMPRESSION: No acute cardiopulmonary disease/process.
[2023-05-25] MEDS ORDERED: ONDANSETRON ODT 4 MG TAB PO STA (18:27)
--- NOTE | 2023-05-25 19:20 | ED ---
URI HPI - General Chief Complaint: Upper Respiratory Infection Stated Complaint: cough R ear ache Time Seen by Provider: 05/25/23 17:46 Source: patient Mode of arrival: ambulatory Limitations: no limitations - History of Present Illness Initial Comments: 37-year-old female presenting with chief complaint of URI-like symptoms. Patient states that starting yesterday she developed a cough, headache, right ear pain, and sinus pressure. She is taken Tylenol at home for her symptoms. No difficulty breathing. No sore throat. No nausea, vomiting, abdominal pain, diarrhea. No fevers or chills. - Related Data Home Medications Medication Instructions Recorded Confirmed OXcarbazepine [Trileptal] 600 mg PO BID 09/29/19 05/23/21 ARIPiprazole [Abilify] 30 mg PO DAILY 05/23/21 05/23/21 Albuterol Nebulized [Ventolin 2.5 mg INHALATION RT-TID PRN 05/23/21 05/23/21 Nebulized] Albuterol Sulfate [Proair Hfa] 2 puff INHALATION RT-QID PRN 05/23/21 05/23/21 Budesonide/Formoterol Fumarate 2 puff INHALATION RT-BID 05/23/21 05/23/21 [Symbicort 160-4.5 Mcg Inhaler] Butalb/APAP/Caff 50-325-40Mg 1 tab PO Q8H PRN 05/23/21 05/23/21 [Fioricet 50-325-40] Cariprazine HCl [Vraylar] 3 mg PO DAILY 05/23/21 05/23/21 Cariprazine HCl [Vraylar] 6 mg PO HS 05/23/21 05/23/21 Lacosamide [Vimpat] 200 mg PO BID 05/23/21 05/23/21 Meloxicam [Mobic] 7.5 mg PO DAILY 05/23/21 05/23/21 Topiramate [Trokendi Xr] 100 mg PO DAILY 05/23/21 05/23/21 Venlafaxine HCl [Effexor XR] 75 mg PO DAILY 05/23/21 05/23/21 cloNIDine HCL [Catapres] 0.1 mg PO HS 05/23/21 05/23/21 guanFACINE HCL [Intuniv] 2 mg PO BID 05/23/21 05/23/21 hydrOXYzine pamoate [hydrOXYzine 100 mg PO TID PRN 05/23/21 05/23/21 PAMOATE] lamoTRIgine [LaMICtal] 50 mg PO BID 05/23/21 05/23/21 ondansetron HCL [Zofran] 8 mg PO Q12HR PRN 05/23/21 05/23/21 traZODone HCL 150 mg PO HS 05/23/21 05/23/21 Previous Rx's Medication Instructions Recorded Famotidine [Pepcid] 20 mg PO BID #5 tablet 10/06/19 Ibuprofen [Motrin] 600 mg PO Q8HR PRN #20 tab 07/10/20 Allergies Allergy/AdvReac Type Severity Reaction Status Date / Time azithromycin Allergy Rash/Hives Verified 05/25/23 17:44 divalproex sodium Allergy "had Verified 05/25/23 17:44 [From Depakote] seizure when coming off" hydrocodone Allergy Rash/Hives Verified 05/25/23 17:44 phenytoin [From Dilantin] Allergy Unknown Verified 05/25/23 17:44 Quinolones Allergy Rash/Hives Verified 05/25/23 17:44 sulfamethoxazole Allergy Rash/Hives Verified 05/25/23 17:44 [From Bactrim] tramadol Allergy Rash/Hives Verified 05/25/23 17:44 trimethoprim [From Bactrim] Allergy Rash/Hives Verified 05/25/23 17:44 codeine AdvReac Vertigo Verified 05/25/23 17:44 diphenhydramine HCl AdvReac Rapid Verified 05/25/23 17:44 [From Benadryl] Heart Rate egg AdvReac Nausea & Verified 05/25/23 17:44 Vomiting Influenza Virus Vaccines AdvReac Nausea & Verified 05/25/23 17:44 Vomiting Review of Systems ROS Statement: Those systems with pertinent positive or pertinent negative responses have been documented in the HPI. ROS Other: All systems not noted in ROS Statement are negative. Past Medical History Past Medical History: Asthma, Chest Pain / Angina, GERD/Reflux, Myocardial Infarction ([place]), Seizure Disorder, Syncope Additional Past Medical History / Comment(s): migraines, last seizure 4 months ago [place] x 2, low blood pressures, irregular heart beat, tachycardia, Last Myocardial Infarction Date:: 10/2016 History of Any Multi-Drug Resistant Organisms: None Reported Past Surgical History: Cholecystectomy, Tubal Ligation Additional Past Surgical History / Comment(s): Tilt table test, wisdom teeth extraction. Past Anesthesia/Blood Transfusion Reactions: Previous Problems w/ Anesthesia Additional Past Anesthesia/Blood Transfusion Reaction / Comment(s): "I get anxious when I wake up when my fiance is not there" Past Psychological History: ADD/ADHD, Anxiety, Bipolar, Depression, PTSD Smoking Status: Former smoker Past Alcohol Use History: None Reported Past Drug Use History: None Reported - Past Family History Father Family Medical History: Cancer Additional Family Medical History / Comment(s): Father at age 61 from lung CA Mother Family Medical History: No Reported History, Seizure Disorder Additional Family Medical History / Comment(s): Mother is alive with history of bipolar/schitzophrenia Brother(s) Additional Family Medical History / Comment(s): She has one half brother that abuses cocaine and methamphetamines. She does not have any contact with him. Patient has 1 sister with no major medical problems. Patient does not have any children. General Exam Limitations: no limitations General appearance: alert, in no apparent distress Head exam: Present: atraumatic, normocephalic, normal inspection Eye exam: Present: normal appearance, EOMI. Absent: scleral icterus, periorbital swelling ENT exam: Present: normal oropharynx, mucous membranes moist Expanded TM/Canal exam: Effusion: Right TM Neck exam: Present: normal inspection, full ROM Respiratory exam: Present: normal lung sounds bilaterally. Absent: respiratory distress, wheezes, rales, rhonchi, stridor Cardiovascular Exam: Present: regular rate, normal rhythm, normal heart sounds. Absent: systolic murmur, diastolic murmur, rubs, gallop, clicks Neurological exam: Present: alert, oriented X3, CN II-XII intact Psychiatric exam: Present: normal affect, normal mood Skin exam: Present: warm, dry, intact, normal color. Absent: rash Course Vital Signs 05/25/23 05/25/23 17:42 19:46 Temperature 99.0 F Pulse Rate 118 H 101 H Respiratory 20 18 Rate Blood Pressure 99/61 109/81 O2 Sat by Pulse 96 97 Oximetry Medical Decision Making - Medical Decision Making Was pt. sent in by a medical professional or institution ([facility], [employer], urgent care, hospital, or [facility]...) When possible be specific @ -No Did you speak to anyone other than the patient for history (EMS, parent, family, police, friend...)? What history was obtained from this source @ -No Did you review nursing and triage notes (agree or disagree)? Why? @ -I reviewed and agree with nursing and triage notes Were old charts reviewed (outside hosp., previous admission, EMS record, old EKG, old radiological studies, urgent care reports/EKG's, [facility] records)? Report findings @ -No old charts were reviewed Differential Diagnosis (chest pain, altered mental status, abdominal pain women, abdominal pain men, vaginal bleeding, weakness, fever, dyspnea, syncope, headache, dizziness, GI bleed, back pain, seizure, CVA, palpatations, mental health, musculoskeletal)? @ -Differential includes bronchitis, Covid, pneumonia, this is not an all- inclusive list EKG interpreted by me (3pts min.). @ -As above X-rays interpreted by me (1pt min.). @ -Chest x-ray negative for acute process CT interpreted by me (1pt min.). @ -None done U/S interpreted by me (1pt. min.). @ -None done What testing was considered but not performed or refused? (CT, X-rays, U/S, labs)? Why? @ -None What meds were considered but not given or refused? Why? @ -None Did you discuss the management of the patient with other professionals (professionals i.e. [facility] Johnston, [employer], lab, RT, psych nurse, social media senior associate, migration specialist, teacher, commissioned fire officer, family service caseworker)? Give summary @ -No Was smoking cessation discussed for >3mins.? @ -No Was critical care preformed (if so, how long)? @ -No Were there social determinants of health that impacted care today? How? (Homelessness, low income, unemployed, alcoholism, drug addiction, transportation, low edu. Level, literacy, decrease access to med. care, detention, rehab)? @ -No Was there de-escalation of care discussed even if they declined (Discuss DNR or withdrawal of care, Hospice)? DNR status @ -No What co-morbidities impacted this encounter? (DM, HTN, Smoking, COPD, CAD, Cancer, CVA, ARF, Chemo, Hep., AIDS, mental health diagnosis, sleep apnea, morbid obesity)? @ -None Was patient admitted / discharged? Hospital course, mention meds given and route, prescriptions, significant lab abnormalities, going to OR and other pertinent info. @ -37-year-old female presenting with chief complaint of URI-like symptoms. Physical examination is conducted. Patient is positive for Covid. Chest x-rays negative for acute process. Patient is educated on today's findings. Educated on supportive management at home and quarantine guidelines. Follow-up with PCP. Report back to ER with any new or worsening symptoms. Discussed return parameters and answered all questions. Patient conveyed verbal understanding and agreed to the plan. I discussed this case in detail with my attending Dr. Unger Undiagnosed new problem with uncertain prognosis? @ -No Drug Therapy requiring intensive monitoring for toxicity (Heparin, Nitro, Insulin, Cardizem)? @ -No Were any procedures done? @ -No Diagnosis/symptom? @ -Covid Acute, or Chronic, or Acute on Chronic? @ -Acute Uncomplicated (without systemic symptoms) or Complicated (systemic symptoms)? @ -Uncomplicated Side effects of treatment? @ -No Exacerbation, Progression, or Severe Exacerbation? @ -No Poses a threat to life or bodily function? How? (Chest pain, [place], [place], pneumonia, PE, COPD, DKA, ARF, appy, cholecystitis, CVA, Diverticulitis, Homicidal, Suicidal, threat to staff... and all critical care pts) @ -No - Lab Data Lab Results 05/25/23 Range/Units 18:23 Influenza Type A (PCR) Not Detected (Not Detectd) Influenza Type B (PCR) Not Detected (Not Detectd) RSV (PCR) Not Detected (Not Detectd) SARS-CoV-2 (PCR) Detected A (Not Detectd) Disposition Clinical Impression: COVID Disposition: HOME SELF-CARE Condition: Good Instructions (If sedation given, give patient instructions): COVID-19 (Coronavirus Disease 2019) (ED) Additional Instructions: Follow-up with PCP. Report back to ER with any new or worsening symptoms. Take Motrin and Tylenol seated for any pain or fever control. Isolated at home for 5 days. If after 5 days you are fever and symptom free, for the following 5 days you should wear a mask at all times when in public. Is patient prescribed a controlled substance at d/c from ED?: No Referrals: Brooke Martin MD [Primary Care Provider] - 1-2 days Time of Disposition: 19:19
[2023-05-25 19:49] VITALS: BP 109/81; PULSE 101; RESP 18
== END 2023-05-25 19:49 | disposition home or self-care (01) ==
LOC: EC 17:40
DX: U07.1 COVID-19 (principal); J45.909 Unspecified asthma, uncomplicated; I25.2 Old myocardial infarction; K21.9 Gastro-esophageal reflux disease without esophagitis; F41.9 Anxiety disorder, unspecified; F31.9 Bipolar disorder, unspecified; F90.9 Attention-deficit hyperactivity disorder, unspecified type; Z79.899 Other long term (current) drug therapy; Z79.51 Long term (current) use of inhaled steroids; Z87.891 Personal history of nicotine dependence; Z88.1 Allergy status to other antibiotic agents; Z88.2 Allergy status to sulfonamides; Z88.5 Allergy status to narcotic agent; Z88.7 Allergy status to serum and vaccine; Z88.8 Allergy status to other drugs, medicaments and biological substances; Z91.012 Allergy to eggs; Z88.6 Allergy status to analgesic agent
CPT/HCPCS: 71046; 87636; 99283

== ENCOUNTER 2023-10-31 10:10 | Emergency (ER) | payer OTHER ==
[2023-10-31 10:30] VITALS: TEMP 97.7
--- NOTE | 2023-10-31 11:31 | ED ---
GI Bleed HPI - General Chief complaint: GI Bleed Stated complaint: Rectal bleeding Time Seen by Provider: 10/31/23 10:36 Source: patient, RN notes reviewed Mode of arrival: ambulatory Limitations: no limitations - History of Present Illness Initial comments: This is a 38-year-old female who presents to the emergency department for rectal bleeding. States last night she noticed bright red bleeding while that occurred after wiping her bottom. States that the bleeding was persistent for a prolonged period of time. States that when she woke up this morning, she had a similar episode. Reports minor lower abdominal discomfort, however she states that she also passed a kidney stone last night. Denies any history of rectal bleeding like this in the past, but states that she does have a problem with hemorrhoids. She does follow with RUSLAN Garg, and states that she called her office and was advised to come to the emergency department. Not taking any blood thinners. - Related Data Home Medications Medication Instructions Recorded Confirmed OXcarbazepine [Trileptal] 600 mg PO BID 09/29/19 05/23/21 ARIPiprazole [Abilify] 30 mg PO DAILY 05/23/21 05/23/21 Albuterol Nebulized [Ventolin 2.5 mg INHALATION RT-TID PRN 05/23/21 05/23/21 Nebulized] Albuterol Sulfate [Proair Hfa] 2 puff INHALATION RT-QID PRN 05/23/21 05/23/21 Budesonide/Formoterol Fumarate 2 puff INHALATION RT-BID 05/23/21 05/23/21 [Symbicort 160-4.5 Mcg Inhaler] Butalb/APAP/Caff 50-325-40Mg 1 tab PO Q8H PRN 05/23/21 05/23/21 [Fioricet 50-325-40] Cariprazine HCl [Vraylar] 3 mg PO DAILY 05/23/21 05/23/21 Cariprazine HCl [Vraylar] 6 mg PO HS 05/23/21 05/23/21 Lacosamide [Vimpat] 200 mg PO BID 05/23/21 05/23/21 Meloxicam [Mobic] 7.5 mg PO DAILY 05/23/21 05/23/21 Topiramate [Trokendi Xr] 100 mg PO DAILY 05/23/21 05/23/21 Venlafaxine HCl [Effexor XR] 75 mg PO DAILY 05/23/21 05/23/21 cloNIDine HCL [Catapres] 0.1 mg PO HS 05/23/21 05/23/21 guanFACINE HCL [Intuniv] 2 mg PO BID 05/23/21 05/23/21 hydrOXYzine pamoate [hydrOXYzine 100 mg PO TID PRN 05/23/21 05/23/21 PAMOATE] lamoTRIgine [LaMICtal] 50 mg PO BID 05/23/21 05/23/21 ondansetron HCL [Zofran] 8 mg PO Q12HR PRN 05/23/21 05/23/21 traZODone HCL 150 mg PO HS 05/23/21 05/23/21 Previous Rx's Medication Instructions Recorded Famotidine [Pepcid] 20 mg PO BID #5 tablet 10/06/19 Ibuprofen [Motrin] 600 mg PO Q8HR PRN #20 tab 07/10/20 Hydrocortisone Suppository 25 mg RECTAL BID 7 Days #14 10/31/23 [Anusol-Hc] suppositor Levofloxacin [Levaquin] 750 mg PO DAILY 5 Days #5 tab 10/31/23 Phenazopyridine [Pyridium] 200 mg PO TID PRN #9 tablet 10/31/23 Allergies Allergy/AdvReac Type Severity Reaction Status Date / Time azithromycin Allergy Rash/Hives Verified 10/31/23 10:18 divalproex sodium Allergy "had Verified 10/31/23 10:18 [From Depakote] seizure when coming off" hydrocodone Allergy Rash/Hives Verified 10/31/23 10:18 phenytoin [From Dilantin] Allergy Unknown Verified 10/31/23 10:18 Quinolones Allergy Rash/Hives Verified 10/31/23 10:18 sulfamethoxazole Allergy Rash/Hives Verified 10/31/23 10:18 [From Bactrim] tramadol Allergy Rash/Hives Verified 10/31/23 10:18 trimethoprim [From Bactrim] Allergy Rash/Hives Verified 10/31/23 10:18 codeine AdvReac Vertigo Verified 10/31/23 10:18 diphenhydramine HCl AdvReac Rapid Verified 10/31/23 10:18 [From Benadryl] Heart Rate egg AdvReac Nausea & Verified 10/31/23 10:18 Vomiting Influenza Virus Vaccines AdvReac Nausea & Verified 10/31/23 10:18 Vomiting Review of Systems ROS Statement: Those systems with pertinent positive or pertinent negative responses have been documented in the HPI. ROS Other: All systems not noted in ROS Statement are negative. Past Medical History Past Medical History: Asthma, Chest Pain / Angina, GERD/Reflux, Myocardial Infarction ([place]), Seizure Disorder, Syncope Additional Past Medical History / Comment(s): migraines, last seizure 4 months ago [place] x 2, low blood pressures, irregular heart beat, tachycardia, Last Myocardial Infarction Date:: 10/2016 History of Any Multi-Drug Resistant Organisms: None Reported Past Surgical History: Cholecystectomy, Tubal Ligation Additional Past Surgical History / Comment(s): Tilt table test, wisdom teeth extraction. Past Anesthesia/Blood Transfusion Reactions: Previous Problems w/ Anesthesia Additional Past Anesthesia/Blood Transfusion Reaction / Comment(s): "I get anxious when I wake up when my fiance is not there" Past Psychological History: ADD/ADHD, Anxiety, Bipolar, Depression, PTSD Smoking Status: Former smoker Past Alcohol Use History: None Reported Past Drug Use History: None Reported - Past Family History Father Family Medical History: Cancer Additional Family Medical History / Comment(s): Father at age 61 from lung CA Mother Family Medical History: No Reported History, Seizure Disorder Additional Family Medical History / Comment(s): Mother is alive with history of bipolar/schitzophrenia Brother(s) Additional Family Medical History / Comment(s): She has one half brother that abuses cocaine and methamphetamines. She does not have any contact with him. Patient has 1 sister with no major medical problems. Patient does not have any children. General Exam Limitations: no limitations General appearance: alert, in no apparent distress Head exam: Present: atraumatic, normocephalic, normal inspection Respiratory exam: Present: normal lung sounds bilaterally. Absent: respiratory distress, wheezes, rales, rhonchi, stridor Cardiovascular Exam: Present: regular rate, normal rhythm, normal heart sounds. Absent: systolic murmur, diastolic murmur, rubs, gallop, clicks GI/Abdominal exam: Present: soft, normal bowel sounds. Absent: distended, tenderness, guarding, rebound, rigid Rectal exam: Present: other (1 external hemorrhoid, no active bleeding.) Neurological exam: Present: alert, oriented X3, CN II-XII intact Psychiatric exam: Present: normal affect, normal mood Skin exam: Present: warm, dry, intact, normal color. Absent: rash Course Vital Signs 10/31/23 10/31/23 10/31/23 10:14 11:46 13:00 Temperature 97.7 F Pulse Rate 99 78 75 Respiratory 18 16 16 Rate Blood Pressure 104/73 106/68 136/85 O2 Sat by Pulse 99 98 98 Oximetry 10/31/23 14:10 Temperature Pulse Rate 65 Respiratory 16 Rate Blood Pressure 129/60 O2 Sat by Pulse 98 Oximetry Medical Decision Making - Medical Decision Making This is a 38 year old female who presents to the emergency department for rectal bleeding. Was pt. sent in by a medical professional or institution? @ -No Did you speak to anyone other than the patient for history? @ -No Did you review nursing and triage notes? @ -Yes, and I agree, it is accurate with regards to the patient's symptoms. Were old charts reviewed? @ -No Differential Diagnosis? @ -Differential GI Bleed: Esophageal varices, aortoenteric fistula, Lucero-Bernard, gastritis, peptic ulcer disease, diverticulosis, inflammatory bowel disease, hemorrhoids, fissure, colitis, malignancy, Meckels diverticulum, this is not meant to be an all- inclusive list. EKG interpreted by me (3pts min.)? @ -Not obtained X-rays interpreted by me (1pt min.)? @ -Not obtained CT interpreted by me (1pt min.)? @ -CTA of the abdomen and pelvis obtained. My interpretation identifies no evidence of rectal bleeding. U/S interpreted by me (1pt. min.)? @ -Not obtained What testing was considered but not performed? (CT, X-rays, U/S, labs)? Why? @ -None What meds were considered but not given? Why? @ -None Did you discuss the management of the patient with other professionals? @ -No Did you reconcile home meds? @ -No Was smoking cessation discussed for >3mins.? @ -No Was critical care preformed (if so, how long)? @ -No Were there social determinants of health that impacted care today? How? (Homelessness, low income, unemployed, alcoholism, drug addiction, transportation, low edu. Level, literacy, decrease access to med. care, [place] [facility], rehab)? @ -No Was there de-escalation of care discussed even if they declined? (Discuss DNR or withdrawal of care, Hospice)? @ -No What co-morbidities impacted this encounter? (DM, HTN, Smoking, COPD, CAD, Cancer, CVA, Hep., AIDS, mental health diagnosis, sleep apnea, morbid obesity)? @ -None Was patient admitted / discharged? @ -Discharged. Lab work obtained and found to be unremarkable. Hemoglobin is within normal limits. Urinalysis positive for infection. Urine sent for culture. CTA of the abdomen and pelvis obtained following GI bleed protocol. This revealed no irregularities. Patient does have an obvious external hemorrhoid. Given the painless bright red rectal bleeding, discussed that she may have internal hemorrhoids contributing to this. 1g of ceftriaxone was administered for the UTI. Patient requests Levaquin outpatient, which she states is typically most effective. Rx for Levaquin provided with dosing instructions. She also inquired about treatment for the internal hemorrhoids. Advised she can try hydrocortisone suppositories, however she should not use these if she is actively bleeding. Rx for these provided. Also discussed sitz baths and making sure she avoids constipation, which she does admit to struggling with. She will otherwise follow up with gastroenterology. Undiagnosed new problem with uncertain prognosis? @ -None Drug Therapy requiring intensive monitoring for toxicity (Heparin, Nitro, Insulin, Cardizem)? @ -None Were any procedures done? @ -None Diagnosis/symptom? @ -Rectal bleeding, UTI Acute, or Chronic, or Acute on Chronic? @ -Acute Uncomplicated (without systemic symptoms) or Complicated (systemic symptoms)? @ -Uncomplicated Side effects of treatment? @ -None Exacerbation, Progression, or Severe Exacerbation] @ -Not applicable Poses a threat to life or bodily function? @ -No Return precautions reviewed in depth, the patient is instructed to return to the emergency department with any new, worsening, or concerning symptoms. Patient verbalized understanding. This case was discussed in detail with the attending ED physician, Dr. Yadav. Presentation, findings, and treatment plan discussed in detail as well. - Lab Data Result diagrams: 10/31/23 11:46 02/08/24 11:46 Lab Results 10/31/23 10/31/23 10/31/23 Range/Units 11:46 11:46 11:46 WBC 5.1 (3.8-10.6) k/uL RBC 4.24 (3.80-5.40) m/uL Hgb 13.9 (11.4-16.0) gm/dL Hct 40.6 (34.0-46.0) % MCV 95.8 (80.0-100.0) fL MCH 32.8 (25.0-35.0) pg MCHC 34.3 (31.0-37.0) g/dL RDW 12.9 (11.5-15.5) % Plt Count 251 (150-450) k/uL MPV 7.3 Neutrophils % 49 % Lymphocytes % 39 % Monocytes % 7 % Eosinophils % 2 % Basophils % 1 % Neutrophils # 2.5 (1.3-7.7) k/uL Lymphocytes # 2.0 (1.0-4.8) k/uL Monocytes # 0.4 (0-1.0) k/uL Eosinophils # 0.1 (0-0.7) k/uL Basophils # 0.0 (0-0.2) k/uL PT 11.5 (10.0-12.5) sec INR 1.1 (<1.2) APTT 23.9 (22.0-30.0) sec Sodium 140 (137-145) mmol/L Potassium 4.7 (3.5-5.1) mmol/L Chloride 112 H (98-107) mmol/L Carbon Dioxide 24 (22-30) mmol/L Anion Gap 4 mmol/L BUN 16 (7-17) mg/dL Creatinine 0.68 (0.52-1.04) mg/dL Est GFR (CKD-EPI)AfAm >90 (>60 ml/min/1.73 sqM) Est GFR (CKD-EPI)NonAf >90 (>60 ml/min/1.73 sqM) Glucose 85 (74-99) mg/dL Plasma Lactic Acid Simon (0.7-2.0) mmol/L Calcium 9.2 (8.4-10.2) mg/dL Total Bilirubin 0.3 (0.2-1.3) mg/dL AST 21 (14-36) U/L ALT 18 (4-34) U/L Alkaline Phosphatase 66 (38-126) U/L Total Protein 7.2 (6.3-8.2) g/dL Albumin 3.8 (3.5-5.0) g/dL Urine Color Urine Appearance (Clear) Urine pH (5.0-8.0) Ur Specific [place] (1.001-1.035) Urine Protein (Negative) Urine Glucose (UA) (Negative) Urine Ketones (Negative) Urine Blood (Negative) Urine Nitrite (Negative) Urine Bilirubin (Negative) Urine Urobilinogen (<2.0) mg/dL Ur Leukocyte Esterase (Negative) Urine RBC (0-5) /hpf Urine WBC (0-5) /hpf Ur Squamous Epith Cells (0-4) /hpf Urine Bacteria (None) /hpf Urine Mucus (None) /hpf Urine HCG, Qual (Not Detectd) 10/31/23 10/31/23 10/31/23 Range/Units 11:46 11:46 11:46 WBC (3.8-10.6) k/uL RBC (3.80-5.40) m/uL Hgb (11.4-16.0) gm/dL Hct (34.0-46.0) % MCV (80.0-100.0) fL MCH (25.0-35.0) pg MCHC (31.0-37.0) g/dL RDW (11.5-15.5) % Plt Count (150-450) k/uL MPV Neutrophils % % Lymphocytes % % Monocytes % % Eosinophils % % Basophils % % Neutrophils # (1.3-7.7) k/uL Lymphocytes # (1.0-4.8) k/uL Monocytes # (0-1.0) k/uL Eosinophils # (0-0.7) k/uL Basophils # (0-0.2) k/uL PT (10.0-12.5) sec INR (<1.2) APTT (22.0-30.0) sec Sodium (137-145) mmol/L Potassium (3.5-5.1) mmol/L Chloride (98-107) mmol/L Carbon Dioxide (22-30) mmol/L Anion Gap mmol/L BUN (7-17) mg/dL Creatinine (0.52-1.04) mg/dL Est GFR (CKD-EPI)AfAm (>60 ml/min/1.73 sqM) Est GFR (CKD-EPI)NonAf (>60 ml/min/1.73 sqM) Glucose (74-99) mg/dL Plasma Lactic Acid Simon 0.7 (0.7-2.0) mmol/L Calcium (8.4-10.2) mg/dL Total Bilirubin (0.2-1.3) mg/dL AST (14-36) U/L ALT (4-34) U/L Alkaline Phosphatase (38-126) U/L Total Protein (6.3-8.2) g/dL Albumin (3.5-5.0) g/dL Urine Color Yellow Urine Appearance Cloudy H (Clear) Urine pH 7.0 (5.0-8.0) Ur Specific [place] 1.023 (1.001-1.035) Urine Protein Trace H (Negative) Urine Glucose (UA) Negative (Negative) Urine Ketones Negative (Negative) Urine Blood Negative (Negative) Urine Nitrite Positive H (Negative) Urine Bilirubin Negative (Negative) Urine Urobilinogen <2.0 (<2.0) mg/dL Ur Leukocyte Esterase Small H (Negative) Urine RBC 2 (0-5) /hpf Urine WBC 19 H (0-5) /hpf Ur Squamous Epith Cells 22 H (0-4) /hpf Urine Bacteria Rare H (None) /hpf Urine Mucus Few H (None) /hpf Urine HCG, Qual Not Detected (Not Detectd) - Radiology Data Radiology results: report reviewed, image reviewed Disposition Clinical Impression: Rectal bleeding, UTI (urinary tract infection) Disposition: HOME SELF-CARE Instructions (If sedation given, give patient instructions): Hemorrhoids (ED), Rectal Bleeding (ED), Urinary Tract Infection in Women (ED), Sitz Bath (DC) Additional Instructions: Return to the emergency department with any new, worsening, or concerning symptoms. Take the antibiotic as prescribed for 5 days. Make sure you're using a stool softener to avoid constipation, however do not use a laxative. You can use the hydrocortisone suppositories twice daily for a week. Do not apply these if you're actively bleeding out of your rectum. If for any reason you feel like these make things worse, you can stop using them. Also try using sitz baths. Follow-up with Dr. Mack GI. Follow up with your primary care provider in 1-2 days. Prescriptions: Hydrocortisone Suppository [Anusol-Hc] 25 mg RECTAL BID 7 Days #14 suppositor Levofloxacin [Levaquin] 750 mg PO DAILY 5 Days #5 tab Phenazopyridine [Pyridium] 200 mg PO TID PRN #9 tablet PRN Reason: Pain Is patient prescribed a controlled substance at d/c from ED?: No Referrals: Brooke Martin MD [Primary Care Provider] - 1-2 days Chantal Mack MD [STAFF PHYSICIAN] - 1-2 days Time of Disposition: 13:53
[2023-10-31 12:02] VITALS: RESP 16
[2023-10-31 12:02] LABS: Appearance,Urine Cloudy (Clear); Bacteria,Urine Rare /hpf; Basophils % (A) 1 %; Bilirubin,Urine Negative (Negative); Blood,Urine Negative (Negative); Color,Urine Yellow; Eosinophils # (A) 0.1 k/uL (0-0.7); Eosinophils % (A) 2 %; Glucose,Urine (UA) Negative (Negative); HCT 40.6 % (34.0-46.0); HGB 13.9 gm/dL (11.4-16.0); Ketones,Urine Negative (Negative); Leukocyte Esterase,Urine Small (Negative); Lymphocytes % (A) 39 %; MCH 32.8 pg (25.0-35.0); MCHC 34.3 g/dL (31.0-37.0); MCV 95.8 fL (80.0-100.0); Mean Platelet Volume 7.3; Monocytes # (A) 0.4 k/uL (0-1.0); Monocytes % (A) 7 %; Mucus,Urine Few /hpf; Neutrophils # (A) 2.5 k/uL (1.3-7.7); Neutrophils % (A) 49 %; Nitrite,Urine Positive (Negative); Platelet Count 251 k/uL (150-450); Protein,Urine Trace (Negative); RBC 4.24 m/uL (3.80-5.40); RBC,Urine 2 /hpf (0-5); RDW 12.9 % (11.5-15.5); Specific Gravity,Urine 1.023 (1.001-1.035); Squamous Epithelial Cell,Urine 22 /hpf (0-4); Urobilinogen,Urine <2.0 mg/dL (<2.0); WBC 5.1 k/uL (3.8-10.6); WBC,Urine 19 /hpf (0-5)
[2023-10-31 12:06] LABS: INR 1.1 (<1.2); Partial Thromboplastin Time 23.9 sec (22.0-30.0); Prothrombin Time 11.5 sec (10.0-12.5)
[2023-10-31 12:09] LABS: ALT 18 U/L (4-34); AST 21 U/L (14-36); African American GFR (CKD) >90 (>60 ml/min/1.73 sqM); Albumin 3.8 g/dL (3.5-5.0); Alkaline Phosphatase 66 U/L (38-126); Anion Gap 4 mmol/L; Blood Urea Nitrogen 16 mg/dL (7-17); Calcium 9.2 mg/dL (8.4-10.2); Carbon Dioxide 24 mmol/L (22-30); Chloride 112 mmol/L (98-107); Glucose 85 mg/dL (74-99); Non-African American GFR(CKD) >90 (>60 ml/min/1.73 sqM); Potassium 4.7 mmol/L (3.5-5.1); Sodium 140 mmol/L (137-145); Total Bilirubin 0.3 mg/dL (0.2-1.3); Total Protein 7.2 g/dL (6.3-8.2)
[2023-10-31] MEDS: cefTRIAXone IN SWFI 1,000 MG/10 ML SYRINGE IVP STA (12:44)
--- NOTE | 2023-10-31 13:27 | CT ---
EXAMINATION TYPE: CT angio abdomen pelvis CT DLP: 1079.5 mGycm, Automated exposure control for dose reduction was used. DATE OF EXAM: 10/31/2023 12:53 PM COMPARISON: 04/07/2017. . CLINICAL INDICATION:Female, 38 years old with history of Rectal bleeding; PHH, Rectal bleeding TECHNIQUE: Multiple thin slice sub-millimeter images were obtained after administration of contrast. 3-D reconstructed images and maximum intensity projection images were obtained. CT angio abdomen pel vis CT Contrast: Contrast used:100 ml mL of Isovue 300 without and with IV Contrast, Oral contrast used: without Oral Contrast None FINDINGS: CTA Abdomen and pelvis: The abdominal aorta does not demonstrate aneurysmal dilatation. Atherosclero tic plaquing is identified within the abdominal aorta. The origins of the superior mesenteric artery , renal arteries, inferior mesenteric artery, and celiac axis are patent. The iliac vessels are norm al in morphology LOWER CHEST: No evidence of focal consolidation, pneumothorax or pleural effusion. LIVER: Unremarkable GALLBLADDER AND BILE DUCTS: The gallbladder surgically absent. PANCREAS: Unremarkable. SPLEEN: Splenic cyst measuring up to 5.7 x 3.4 cm. ADRENAL GLANDS: Unremarkable. KIDNEYS AND URETERS: No evidence of hydronephrosis or renal calculus. The ureters are unremarkable. PELVIS BLADDER: Unremarkable REPRODUCTIVE: ABDOMEN & PELVIS STOMACH AND BOWEL: Evaluation of the gastrointestinal tract demonstrates no evidence of high density hemorrhage arterial phase or pooling of blood on delayed phases. No evidence of bowel obstruction. PERITONEUM: No evidence of pneumoperitoneum or free fluid. VASCULATURE: No evidence of aortic aneurysm. MUSCULOSKELETAL: No acute osseous abnormalities LYMPH NODES: No gross evidence for lymphadenopathy. SOFT TISSUE/ABDOMINAL WALL: Unremarkable IMPRESSION No evidence for gastrointestinal hemorrhage. No evidence for microhemorrhage.
[2023-10-31 14:36] VITALS: BP 129/60; PULSE 65
== END 2023-10-31 14:13 | disposition home or self-care (01) ==
LOC: EC 10:10
DX: K62.5 Hemorrhage of anus and rectum (principal); N39.0 Urinary tract infection, site not specified; J45.909 Unspecified asthma, uncomplicated; I25.2 Old myocardial infarction; F90.9 Attention-deficit hyperactivity disorder, unspecified type; F41.9 Anxiety disorder, unspecified; F31.9 Bipolar disorder, unspecified; Z87.891 Personal history of nicotine dependence; Z79.899 Other long term (current) drug therapy; Z79.51 Long term (current) use of inhaled steroids; Z88.7 Allergy status to serum and vaccine; Z91.012 Allergy to eggs; Z88.5 Allergy status to narcotic agent; Z88.6 Allergy status to analgesic agent; Z88.2 Allergy status to sulfonamides; Z88.1 Allergy status to other antibiotic agents; Z88.8 Allergy status to other drugs, medicaments and biological substances
CPT/HCPCS: 36415; 80053; 83605; 85025; 85610; 85730; 81001; 81025; 74174; 99285; 96374; J0696; Q9967

== ENCOUNTER 2024-01-29 15:10 | Emergency (ER) | payer OTHER ==
--- NOTE | 2024-01-29 15:38 | ED ---
Animal Bite HPI - General Chief Complaint: Animal Bite Stated Complaint: R leg dog bite Time Seen by Provider: 01/29/24 15:26 Source: patient, RN notes reviewed Mode of arrival: ambulatory Limitations: no limitations - History of Present Illness Initial Comments: This is a 38-year-old female presents emergency department chief complaint of a dog bite on her right anterior thigh that occurred yesterday. She called animal control with the patient was taken for youth and decision. Patient states that the dog is a friends*she wears up-to-date on vaccines. Patient's last of this vaccine was in 2010. She denies paresthesias, weakness, nausea or vomiting. Denies fall at time of event. No other acute complaints at this time. - Related Data Home Medications Medication Instructions Recorded Confirmed OXcarbazepine [Trileptal] 600 mg PO BID 09/29/19 05/23/21 ARIPiprazole [Abilify] 30 mg PO DAILY 05/23/21 05/23/21 Albuterol Nebulized [Ventolin 2.5 mg INHALATION RT-TID PRN 05/23/21 05/23/21 Nebulized] Albuterol Sulfate [Proair Hfa] 2 puff INHALATION RT-QID PRN 05/23/21 05/23/21 Budesonide/Formoterol Fumarate 2 puff INHALATION RT-BID 05/23/21 05/23/21 [Symbicort 160-4.5 Mcg Inhaler] Butalb/APAP/Caff 50-325-40Mg 1 tab PO Q8H PRN 05/23/21 05/23/21 [Fioricet 50-325-40] Cariprazine HCl [Vraylar] 3 mg PO DAILY 05/23/21 05/23/21 Cariprazine HCl [Vraylar] 6 mg PO HS 05/23/21 05/23/21 Lacosamide [Vimpat] 200 mg PO BID 05/23/21 05/23/21 Meloxicam [Mobic] 7.5 mg PO DAILY 05/23/21 05/23/21 Topiramate [Trokendi Xr] 100 mg PO DAILY 05/23/21 05/23/21 Venlafaxine HCl [Effexor XR] 75 mg PO DAILY 05/23/21 05/23/21 cloNIDine HCL [Catapres] 0.1 mg PO HS 05/23/21 05/23/21 guanFACINE HCL [Intuniv] 2 mg PO BID 05/23/21 05/23/21 hydrOXYzine pamoate [hydrOXYzine 100 mg PO TID PRN 05/23/21 05/23/21 PAMOATE] lamoTRIgine [LaMICtal] 50 mg PO BID 05/23/21 05/23/21 ondansetron HCL [Zofran] 8 mg PO Q12HR PRN 05/23/21 05/23/21 traZODone HCL 150 mg PO HS 05/23/21 05/23/21 Previous Rx's Medication Instructions Recorded Famotidine [Pepcid] 20 mg PO BID #5 tablet 10/06/19 Ibuprofen [Motrin] 600 mg PO Q8HR PRN #20 tab 07/10/20 Hydrocortisone Suppository 25 mg RECTAL BID 7 Days #14 10/31/23 [Anusol-Hc] suppositor Levofloxacin [Levaquin] 750 mg PO DAILY 5 Days #5 tab 10/31/23 Phenazopyridine [Pyridium] 200 mg PO TID PRN #9 tablet 10/31/23 Amoxic-Pot Clav 875-125Mg 1 tab PO Q12HR #20 tab 01/29/24 [Augmentin 875-125] Allergies Allergy/AdvReac Type Severity Reaction Status Date / Time azithromycin Allergy Rash/Hives Verified 10/31/23 10:18 divalproex sodium Allergy "had Verified 10/31/23 10:18 [From Depakote] seizure when coming off" hydrocodone Allergy Rash/Hives Verified 10/31/23 10:18 phenytoin [From Dilantin] Allergy Unknown Verified 10/31/23 10:18 Quinolones Allergy Rash/Hives Verified 10/31/23 10:18 sulfamethoxazole Allergy Rash/Hives Verified 10/31/23 10:18 [From Bactrim] tramadol Allergy Rash/Hives Verified 10/31/23 10:18 trimethoprim [From Bactrim] Allergy Rash/Hives Verified 10/31/23 10:18 codeine AdvReac Vertigo Verified 10/31/23 10:18 diphenhydramine HCl AdvReac Rapid Verified 10/31/23 10:18 [From Benadryl] Heart Rate egg AdvReac Nausea & Verified 10/31/23 10:18 Vomiting Influenza Virus Vaccines AdvReac Nausea & Verified 10/31/23 10:18 Vomiting sulfate ion AdvReac Anaphylaxis Verified 01/29/24 15:18 Review of Systems ROS Statement: Those systems with pertinent positive or pertinent negative responses have been documented in the HPI. ROS Other: All systems not noted in ROS Statement are negative. Past Medical History Past Medical History: Asthma, Chest Pain / Angina, GERD/Reflux, Myocardial Infarction ([place]), Seizure Disorder, Syncope Additional Past Medical History / Comment(s): migraines, last seizure 4 months ago [place] x 2, low blood pressures, irregular heart beat, tachycardia, Last Myocardial Infarction Date:: 10/2016 History of Any Multi-Drug Resistant Organisms: None Reported Past Surgical History: Cholecystectomy, Tubal Ligation Additional Past Surgical History / Comment(s): Tilt table test, wisdom teeth extraction. Past Anesthesia/Blood Transfusion Reactions: Previous Problems w/ Anesthesia Additional Past Anesthesia/Blood Transfusion Reaction / Comment(s): "I get anxious when I wake up when my fiance is not there" Past Psychological History: ADD/ADHD, Anxiety, Bipolar, Depression, PTSD Smoking Status: Former smoker Past Alcohol Use History: None Reported Past Drug Use History: None Reported - Past Family History Father Family Medical History: Cancer Additional Family Medical History / Comment(s): Father at age 61 from lung CA Mother Family Medical History: No Reported History, Seizure Disorder Additional Family Medical History / Comment(s): Mother is alive with history of bipolar/schitzophrenia Brother(s) Additional Family Medical History / Comment(s): She has one half brother that abuses cocaine and methamphetamines. She does not have any contact with him. Patient has 1 sister with no major medical problems. Patient does not have any children. General Exam Limitations: no limitations General appearance: alert, in no apparent distress Head exam: Present: atraumatic, normocephalic, normal inspection Eye exam: Present: normal appearance, PERRL, EOMI. Absent: scleral icterus, conjunctival injection, periorbital swelling ENT exam: Present: normal exam, mucous membranes moist Neck exam: Present: normal inspection. Absent: tenderness, meningismus, lymphadenopathy Respiratory exam: Present: normal lung sounds bilaterally. Absent: respiratory distress, wheezes, rales, rhonchi, stridor Cardiovascular Exam: Present: regular rate, normal rhythm, normal heart sounds. Absent: systolic murmur, diastolic murmur, rubs, gallop, clicks GI/Abdominal exam: Present: soft, normal bowel sounds. Absent: distended, tenderness, guarding, rebound, rigid Right Upper Leg exam: Present: tenderness, ecchymosis (2 cm area of ecchymosis and puncture wound on the anterior mid right thigh) Back exam: Present: normal inspection Neurological exam: Present: alert, oriented X3, CN II-XII intact Psychiatric exam: Present: normal affect, normal mood Skin exam: Present: warm, dry, intact, normal color. Absent: rash Course Vital Signs 01/29/24 15:16 Temperature 98.3 F Pulse Rate 106 H Respiratory 18 Rate Blood Pressure 105/74 O2 Sat by Pulse 97 Oximetry Medical Decision Making - Medical Decision Making Was pt. sent in by a medical professional or institution (, PA, CORPORATE DEVELOPMENT INTERN, urgent care, hospital, or halfway...) When possible be specific @ -No Did you speak to anyone other than the patient for history (EMS, parent, family, police, friend...)? What history was obtained from this source @ -No Did you review nursing and triage notes (agree or disagree)? Why? @ -I reviewed and agree with nursing and triage notes Were old charts reviewed (outside hosp., previous admission, EMS record, old EKG, old radiological studies, urgent care reports/EKG's, halfway records)? Report findings @ -No old charts were reviewed Differential Diagnosis (chest pain, altered mental status, abdominal pain women, abdominal pain men, vaginal bleeding, weakness, fever, dyspnea, syncope, headache, dizziness, GI bleed, back pain, seizure, CVA, palpatations, mental health, musculoskeletal)? @ -Animal bite EKG interpreted by me (3pts min.). @ -None X-rays interpreted by me (1pt min.). @ -None done CT interpreted by me (1pt min.). @ -None done U/S interpreted by me (1pt. min.). @ -None done What testing was considered but not performed or refused? (CT, X-rays, U/S, labs)? Why? @ -None What meds were considered but not given or refused? Why? @ -None Did you discuss the management of the patient with other professionals (professionals i.e. DrDeisy, PA, CORPORATE DEVELOPMENT INTERN, lab, RT, psych nurse, social media sr strategy manager, torch heater, teacher, community service officer coordinator, case making machine operator)? Give summary @ -No Was smoking cessation discussed for >3mins.? @ -No Was critical care preformed (if so, how long)? @ -No Were there social determinants of health that impacted care today? How? (Homelessness, low income, unemployed, alcoholism, drug addiction, transport ation, low edu. Level, literacy, decrease access to med. care, alf, rehab)? @ -No Was there de-escalation of care discussed even if they declined (Discuss DNR or withdrawal of care, Hospice)? DNR status @ -No What co-morbidities impacted this encounter? (DM, HTN, Smoking, COPD, CAD, Cancer, CVA, ARF, Chemo, Hep., AIDS, mental health diagnosis, sleep apnea, morbid obesity)? @ -None Was patient admitted / discharged? Hospital course, mention meds given and route, prescriptions, significant lab abnormalities, going to OR and other pertinent info. @ -Discharge. 38-year-old female chief complaint of a dog bite to her right anterior thigh. On examination there is noted to be a mild puncture wound measuring about 1 mm in diameter with about 2 cm of ecchymosis surrounding. This area is not amenable to laceration repair. Additionally, area was thoroughly irrigated. Abdirahman with patient at bedside that routine rabies vaccination is not recommended at this time since dog is able to be monitored and known to have vaccines. Patient was provided with tetanus vaccine and will be discharged home with oral Augmentin. All of patient's questions were answered and discussed. Strict return parameters discussed with the patient. This case was discussed with Dr. Jordan. Undiagnosed new problem with uncertain prognosis? @ -No Drug Therapy requiring intensive monitoring for toxicity (Heparin, Nitro, Insulin, Cardizem)? @ -No Were any procedures done? @ -No Diagnosis/symptom? @ -Animal bite Acute, or Chronic, or Acute on Chronic? @ -Acute Uncomplicated (without systemic symptoms) or Complicated (systemic symptoms)? @ -Uncomplicated Side effects of treatment? @ -No Exacerbation, Progression, or Severe Exacerbation? @ -No Poses a threat to life or bodily function? How? (Chest pain, [place], [place], pneumonia, PE, COPD, DKA, ARF, appy, cholecystitis, CVA, Diverticulitis, Homicidal, Suicidal, threat to staff... and all critical care pts) @ -No Disposition Clinical Impression: Dog bite Narrative: Please return to the Emergency Department if symptoms worsen or any other concerns. Complete full course of antibiotics as prescribed. Disposition: HOME SELF-CARE Condition: Good Instructions (If sedation given, give patient instructions): Animal Bite (ED) Prescriptions: Amoxic-Pot Clav 875-125Mg [Augmentin 875-125] 1 tab PO Q12HR #20 tab Is patient prescribed a controlled substance at d/c from ED?: No Referrals: Brooke Martin MD [Primary Care Provider] - 1-2 days Time of Disposition: 15:40
[2024-01-29 16:00] VITALS: RESP 18
[2024-01-29] MEDS: DIPH,PERTUS(ACELL)TETVAC-LF 0.5 ML VIAL IM ONE (16:11)
[2024-01-29 16:43] VITALS: BP 110/74; PULSE 94; TEMP 98.1
== END 2024-01-29 16:25 | disposition home or self-care (01) ==
LOC: EC 15:10
DX: S81.851A Open bite, right lower leg, initial encounter (principal); Z23 Encounter for immunization; Z87.891 Personal history of nicotine dependence; Z91.012 Allergy to eggs; Z88.5 Allergy status to narcotic agent; Z88.2 Allergy status to sulfonamides; Z88.8 Allergy status to other drugs, medicaments and biological substances; W54.0XXA Bitten by dog, initial encounter
CPT/HCPCS: 90471; 90715; 99283

== ENCOUNTER 2024-04-08 14:23 | Emergency (ER) | payer OTHER ==
--- NOTE | 2024-04-08 14:42 | ED ---
Lower Extremity Injury HPI - General Source: patient, RN notes reviewed Mode of arrival: ambulatory Limitations: no limitations <Javon Gonzalez - Last Filed: 04/08/24 14:41> <Ayse Roca - Last Filed: 04/08/24 18:48> - General Chief Complaint: Extremity Injury, Lower Stated Complaint: foot injury Time Seen by Provider: 04/08/24 14:35 - History of Present Illness Initial Comments: Quick [id number] female presents emergency department chief complaint of left foot injury. Patient states she injured it twisting in a kayak. Patient states that she tripped at that time. States has bruising, pain and swelling. (Javon Gonzalez) 38-year-old female presents to the emergency department for evaluation of left foot injury. Patient states that yesterday she was attempting to move a kayak when she tripped and twisted her foot. Patient states that she has pain throughout the foot. She is able to ambulate on it. She denies any other injury, head injury. (Ayse Roca) - Related Data Home Medications Medication Instructions Recorded Confirmed OXcarbazepine [Trileptal] 600 mg PO BID 09/29/19 05/23/21 ARIPiprazole [Abilify] 30 mg PO DAILY 05/23/21 05/23/21 Albuterol Nebulized [Ventolin 2.5 mg INHALATION RT-TID PRN 05/23/21 05/23/21 Nebulized] Albuterol Sulfate [Proair Hfa] 2 puff INHALATION RT-QID PRN 05/23/21 05/23/21 Budesonide/Formoterol Fumarate 2 puff INHALATION RT-BID 05/23/21 05/23/21 [Symbicort 160-4.5 Mcg Inhaler] Butalb/APAP/Caff 50-325-40Mg 1 tab PO Q8H PRN 05/23/21 05/23/21 [Fioricet 50-325-40] Cariprazine HCl [Vraylar] 3 mg PO DAILY 05/23/21 05/23/21 Cariprazine HCl [Vraylar] 6 mg PO HS 05/23/21 05/23/21 Lacosamide [Vimpat] 200 mg PO BID 05/23/21 05/23/21 Meloxicam [Mobic] 7.5 mg PO DAILY 05/23/21 05/23/21 Topiramate [Trokendi Xr] 100 mg PO DAILY 05/23/21 05/23/21 Venlafaxine HCl [Effexor XR] 75 mg PO DAILY 05/23/21 05/23/21 cloNIDine HCL [Catapres] 0.1 mg PO HS 05/23/21 05/23/21 guanFACINE HCL [Intuniv] 2 mg PO BID 05/23/21 05/23/21 hydrOXYzine pamoate [hydrOXYzine 100 mg PO TID PRN 05/23/21 05/23/21 PAMOATE] lamoTRIgine [LaMICtal] 50 mg PO BID 05/23/21 05/23/21 ondansetron HCL [Zofran] 8 mg PO Q12HR PRN 05/23/21 05/23/21 traZODone HCL 150 mg PO HS 05/23/21 05/23/21 Previous Rx's Medication Instructions Recorded Famotidine [Pepcid] 20 mg PO BID #5 tablet 10/06/19 Ibuprofen [Motrin] 600 mg PO Q8HR PRN #20 tab 07/10/20 Hydrocortisone Suppository 25 mg RECTAL BID 7 Days #14 10/31/23 [Anusol-Hc] suppositor Levofloxacin [Levaquin] 750 mg PO DAILY 5 Days #5 tab 10/31/23 Phenazopyridine [Pyridium] 200 mg PO TID PRN #9 tablet 10/31/23 Amoxic-Pot Clav 875-125Mg 1 tab PO Q12HR #20 tab 01/29/24 [Augmentin 875-125] Allergies Allergy/AdvReac Type Severity Reaction Status Date / Time azithromycin Allergy Rash/Hives Verified 04/08/24 14:30 divalproex sodium Allergy "had Verified 04/08/24 14:30 [From Depakote] seizure when coming off" hydrocodone Allergy Rash/Hives Verified 04/08/24 14:30 phenytoin [From Dilantin] Allergy Unknown Verified 04/08/24 14:30 Quinolones Allergy Rash/Hives Verified 04/08/24 14:30 sulfamethoxazole Allergy Rash/Hives Verified 04/08/24 14:30 [From Bactrim] tramadol Allergy Rash/Hives Verified 04/08/24 14:30 trimethoprim [From Bactrim] Allergy Rash/Hives Verified 04/08/24 14:30 codeine AdvReac Vertigo Verified 04/08/24 14:30 diphenhydramine HCl AdvReac Rapid Verified 04/08/24 14:30 [From Benadryl] Heart Rate egg AdvReac Nausea & Verified 04/08/24 14:30 Vomiting Influenza Virus Vaccines AdvReac Nausea & Verified 04/08/24 14:30 Vomiting sulfate ion AdvReac Anaphylaxis Verified 04/08/24 14:30 Review of Systems ROS Other: All systems not noted in ROS Statement are negative. <Javon Gonzalez - Last Filed: 04/08/24 14:41> ROS Other: All systems not noted in ROS Statement are negative. <Ayse Roca - Last Filed: 04/08/24 18:48> ROS Statement: Those systems with pertinent positive or pertinent negative responses have been documented in the HPI. Past Medical History Past Medical History: Asthma, Chest Pain / Angina, GERD/Reflux, Myocardial Infarction ([place]), Seizure Disorder, Syncope Additional Past Medical History / Comment(s): migraines, last seizure 4 months ago [place] x 2, low blood pressures, irregular heart beat, tachycardia, Last Myocardial Infarction Date:: 10/2016 History of Any Multi-Drug Resistant Organisms: None Reported Past Surgical History: Cholecystectomy, Tubal Ligation Additional Past Surgical History / Comment(s): Tilt table test, wisdom teeth extraction. Past Anesthesia/Blood Transfusion Reactions: Previous Problems w/ Anesthesia Additional Past Anesthesia/Blood Transfusion Reaction / Comment(s): "I get anxious when I wake up when my fiance is not there" Past Psychological History: ADD/ADHD, Anxiety, Bipolar, Depression, PTSD Smoking Status: Former smoker Past Alcohol Use History: None Reported Past Drug Use History: None Reported - Past Family History Father Family Medical History: Cancer Additional Family Medical History / Comment(s): Father at age 61 from lung CA Mother Family Medical History: No Reported History, Seizure Disorder Additional Family Medical History / Comment(s): Mother is alive with history of bipolar/schitzophrenia Brother(s) Additional Family Medical History / Comment(s): She has one half brother that abuses cocaine and methamphetamines. She does not have any contact with him. Patient has 1 sister with no major medical problems. Patient does not have any children. <Javon Gonzalez - Last Filed: 04/08/24 14:41> General Exam Limitations: no limitations <Javon Gonzalez - Last Filed: 04/08/24 14:41> Limitations: no limitations General appearance: alert, in no apparent distress Head exam: Present: atraumatic, normocephalic, normal inspection Eye exam: Present: normal appearance, PERRL, EOMI. Absent: scleral icterus, conjunctival injection, periorbital swelling Respiratory exam: Present: normal lung sounds bilaterally. Absent: respiratory distress, wheezes, rales, rhonchi, stridor Cardiovascular Exam: Present: regular rate, normal rhythm, normal heart sounds. Absent: systolic murmur, diastolic murmur, rubs, gallop, clicks Extremities exam: Present: full ROM, tenderness (Throughout the left foot), normal capillary refill, other (DP and PT pulses 2+). Absent: pedal edema, joint swelling, calf tenderness Neurological exam: Present: alert, oriented X3 Psychiatric exam: Present: normal affect, normal mood Skin exam: Present: warm, dry, intact, normal color. Absent: rash <Ayse Roca - Last Filed: 04/08/24 18:48> - General Exam Comments Initial Comments: Visual Physical Exam Vital signs reviewed General: Well-appearing, nontoxic, no acute distress. Head: Normocephalic, atraumatic Eyes: PERRLA, EOMI ENT: Airway patent Chest: Nonlabored breathing Skin: No visual rash, normal skin tone Neuro: Alert and oriented 3 Musculoskeletal: No gross abnormalities (Javon Gonzalez) Course Vital Signs 04/08/24 04/08/24 14:28 16:26 Temperature 97.8 F 98.1 F Pulse Rate 114 H 90 Respiratory 20 18 Rate Blood Pressure 104/72 108/98 O2 Sat by Pulse 96 98 Oximetry Medical Decision Making <Javon Gonzalez - Last Filed: 04/08/24 14:41> <Ayse Roca - Last Filed: 04/08/24 18:48> - Medical Decision Making I completed the quick note portion of this chart signed Javon Gonzalez PA-C (Javon Gonzalez) Was pt. sent in by a medical professional or institution (DEBRA Johnston, LUMBER TYING MACHINE OPERATOR, urgent care, hospital, or long-term...) When possible be specific @ -No Did you speak to anyone other than the patient for history (EMS, parent, family, police, friend...)? What history was obtained from this source @ -No Did you review nursing and triage notes (agree or disagree)? Why? @ -I reviewed and agree with nursing and triage notes Were old charts reviewed (outside hosp., previous admission, EMS record, old EKG, old radiological studies, urgent care reports/EKG's, long-term records)? Report findings @ -No old charts were reviewed Differential Diagnosis (chest pain, altered mental status, abdominal pain women, abdominal pain men, vaginal bleeding, weakness, fever, dyspnea, syncope, headach e, dizziness, GI bleed, back pain, seizure, CVA, palpatations, mental health, musculoskeletal)? @ -Differential Musculoskeletal Muscular strain, contusion, ligament sprain, fracture, arthritis, septic arthritis, bursitis, cellulitis, muscle spasm, nerve compression, DVT, arterial occlusion, herpes zoster, electrolyte abnormality, tumor.... This is not meant to be in all inclusive list EKG interpreted by me (3pts min.). @ -None X-rays interpreted by me (1pt min.). @ -X-ray of the left foot obtained shows no evidence of acute fracture CT interpreted by me (1pt min.). @ -None done U/S interpreted by me (1pt. min.). @ -None done What testing was considered but not performed or refused? (CT, X-rays, U/S, labs)? Why? @ -None What meds were considered but not given or refused? Why? @ -None Did you discuss the management of the patient with other professionals (professionals i.e. DEBRA Johnston, LUMBER TYING MACHINE OPERATOR, lab, RT, psych nurse, geriatric social worker, stain wiper, teacher, combatant diver officer, outsole caser)? Give summary @ -No Was smoking cessation discussed for >3mins.? @ -No Was critical care preformed (if so, how long)? @ -No Were there social determinants of health that impacted care today? How? (Homelessness, low income, unemployed, alcoholism, drug addiction, transportation, low edu. Level, literacy, decrease access to med. care, skilled nursing, rehab)? @ -No Was there de-escalation of care discussed even if they declined (Discuss DNR or withdrawal of care, Hospice)? DNR status @ -No What co-morbidities impacted this encounter? (DM, HTN, Smoking, COPD, CAD, Cancer, CVA, ARF, Chemo, Hep., AIDS, mental health diagnosis, sleep apnea, morbid obesity)? @ -None Was patient admitted / discharged? Hospital course, mention meds given and route, prescriptions, significant lab abnormalities, going to OR and other pertinent info. @ -Discharge. Patient presented to the emergency department for evaluation of left foot injury. X-rays obtained which show no evidence of acute fracture. Distal neurovascular intact. Patient advised symptomatic treatment at this time. Provided Mann bandage. She will be discharged home. Patient understanding and agreeable with plan. Patient stable at time of discharge. Ca se discussed with Dr. Resendiz Undiagnosed new problem with uncertain prognosis? @ -No Drug Therapy requiring intensive monitoring for toxicity (Heparin, Nitro, Insulin, Cardizem)? @ -No Were any procedures done? @ -No Diagnosis/symptom? @ -Foot sprain Acute, or Chronic, or Acute on Chronic? @ -acute Uncomplicated (without systemic symptoms) or Complicated (systemic symptoms)? @ -uncomplicated Side effects of treatment? @ -No Exacerbation, Progression, or Severe Exacerbation? @ -No Poses a threat to life or bodily function? How? (Chest pain, [place], [place], pneumonia, PE, COPD, DKA, ARF, appy, cholecystitis, CVA, Diverticulitis, Homicidal, Suicidal, threat to staff... and all critical care pts) @ -No (Ayse Roca) Disposition <Javon Gonzalez - Last Filed: 04/08/24 14:41> Is patient prescribed a controlled substance at d/c from ED?: No <Ayse Roca - Last Filed: 04/08/24 18:48> Clinical Impression: Foot sprain Disposition: HOME SELF-CARE Condition: Stable Instructions (If sedation given, give patient instructions): Foot Sprain (ED) Additional Instructions: Please follow up with your primary care provider. Return to the emergency department for new or worsening symptoms. Referrals: Brooke Martin MD [Primary Care Provider] - 1-2 days
--- NOTE | 2024-04-08 15:48 | XR ---
EXAMINATION TYPE: XR foot complete LT DATE OF EXAM: 04/08/2024 CLINICAL HISTORY: pain TECHNIQUE: Frontal, lateral and oblique images of the left foot are obtained. COMPARISON: 03/20/2018 FINDINGS: There is no acute fracture/dislocation evident. The joint spaces appear within normal rudolph its. The overlying soft tissue appears unremarkable. IMPRESSION: There is no acute fracture or dislocation. ICD 10 NO FRACTURE, INITIAL EVALUATION
[2024-04-08] MEDS: KETOROLAC 15 MG/ML 1 ML VIAL IM STA (16:21)
[2024-04-08 16:28] VITALS: BP 108/98; PULSE 90; RESP 18; TEMP 98.1
== END 2024-04-08 16:28 | disposition home or self-care (01) ==
LOC: EC 14:23
DX: S93.602A Unspecified sprain of left foot, initial encounter (principal); Z87.891 Personal history of nicotine dependence; Z88.2 Allergy status to sulfonamides; Z88.0 Allergy status to penicillin; Z91.012 Allergy to eggs; Z88.8 Allergy status to other drugs, medicaments and biological substances; X58.XXXA Exposure to other specified factors, initial encounter
CPT/HCPCS: 73630; 99283; 96372; J1885

== ENCOUNTER 2024-04-16 09:56 | Emergency (ER) | payer OTHER ==
[2024-04-16] MEDS: methylPREDNISolone SOD SUCCI 125 MG/2 ML VIAL IV STA (10:30)
--- NOTE | 2024-04-16 10:39 | ED ---
General Adult HPI - General Chief complaint: Shortness of Breath Stated complaint: SOB Time Seen by Provider: 04/16/24 10:19 Source: patient, RN notes reviewed, old records reviewed Mode of arrival: ambulatory Limitations: no limitations - History of Present Illness Initial comments: Patient is a 38-year-old female with past medical history remarkable for asthma, COPD, GERD, currently [place] as well. Presents emergency department with a cough as well as chest tightness. States it feels like her asthma. Is going camping this weekend and wants to make sure she does not have any upper respiratory infection that requires antibiotics. Denies any fevers or chills. Denies abdominal pain, nausea, vomiting. Denies diarrhea. States the pain is mostly there when coughing. Is not having a productive cough. Denies any lower extremity swelling. Has no other acute complaints at this time. Presents for further evaluation. No known sick contacts. Took a COVID test yesterday and was negative. - Related Data Home Medications Medication Instructions Recorded Confirmed OXcarbazepine [Trileptal] 600 mg PO BID 09/29/19 05/23/21 ARIPiprazole [Abilify] 30 mg PO DAILY 05/23/21 05/23/21 Albuterol Nebulized [Ventolin 2.5 mg INHALATION RT-TID PRN 05/23/21 05/23/21 Nebulized] Albuterol Sulfate [Proair Hfa] 2 puff INHALATION RT-QID PRN 05/23/21 05/23/21 Budesonide/Formoterol Fumarate 2 puff INHALATION RT-BID 05/23/21 05/23/21 [Symbicort 160-4.5 Mcg Inhaler] Butalb/APAP/Caff 50-325-40Mg 1 tab PO Q8H PRN 05/23/21 05/23/21 [Fioricet 50-325-40] Cariprazine HCl [Vraylar] 3 mg PO DAILY 05/23/21 05/23/21 Cariprazine HCl [Vraylar] 6 mg PO HS 05/23/21 05/23/21 Lacosamide [Vimpat] 200 mg PO BID 05/23/21 05/23/21 Meloxicam [Mobic] 7.5 mg PO DAILY 05/23/21 05/23/21 Topiramate [Trokendi Xr] 100 mg PO DAILY 05/23/21 05/23/21 Venlafaxine HCl [Effexor XR] 75 mg PO DAILY 05/23/21 05/23/21 cloNIDine HCL [Catapres] 0.1 mg PO HS 05/23/21 05/23/21 guanFACINE HCL [Intuniv] 2 mg PO BID 05/23/21 05/23/21 hydrOXYzine pamoate [hydrOXYzine 100 mg PO TID PRN 05/23/21 05/23/21 PAMOATE] lamoTRIgine [LaMICtal] 50 mg PO BID 05/23/21 05/23/21 ondansetron HCL [Zofran] 8 mg PO Q12HR PRN 05/23/21 05/23/21 traZODone HCL 150 mg PO HS 05/23/21 05/23/21 Previous Rx's Medication Instructions Recorded Famotidine [Pepcid] 20 mg PO BID #5 tablet 10/06/19 Ibuprofen [Motrin] 600 mg PO Q8HR PRN #20 tab 07/10/20 Hydrocortisone Suppository 25 mg RECTAL BID 7 Days #14 10/31/23 [Anusol-Hc] suppositor Levofloxacin [Levaquin] 750 mg PO DAILY 5 Days #5 tab 10/31/23 Phenazopyridine [Pyridium] 200 mg PO TID PRN #9 tablet 10/31/23 Amoxic-Pot Clav 875-125Mg 1 tab PO Q12HR #20 tab 01/29/24 [Augmentin 875-125] Doxycycline Hyclate 100 mg PO BID 7 Days #14 cap 04/16/24 predniSONE [Deltasone] 40 mg PO DAILY 5 Days #10 tab 04/16/24 Allergies Allergy/AdvReac Type Severity Reaction Status Date / Time azithromycin Allergy Rash/Hives Verified 04/16/24 09:59 divalproex sodium Allergy "had Verified 04/16/24 09:59 [From Depakote] seizure when coming off" hydrocodone Allergy Rash/Hives Verified 04/16/24 09:59 phenytoin [From Dilantin] Allergy Unknown Verified 04/16/24 09:59 Quinolones Allergy Rash/Hives Verified 04/16/24 09:59 sulfamethoxazole Allergy Rash/Hives Verified 04/16/24 09:59 [From Bactrim] tramadol Allergy Rash/Hives Verified 04/16/24 09:59 trimethoprim [From Bactrim] Allergy Rash/Hives Verified 04/16/24 09:59 codeine AdvReac Vertigo Verified 04/16/24 09:59 diphenhydramine HCl AdvReac Rapid Verified 04/16/24 09:59 [From Benadryl] Heart Rate egg AdvReac Nausea & Verified 04/16/24 09:59 Vomiting Influenza Virus Vaccines AdvReac Nausea & Verified 04/16/24 09:59 Vomiting sulfate ion AdvReac Anaphylaxis Verified 04/16/24 09:59 Review of Systems ROS Statement: Those systems with pertinent positive or pertinent negative responses have been documented in the HPI. Review of Systems: CONST: Denies fever EYES: Denies blurry vision ENT: Denies nasal congestion C/V: Endorses chest tightness worse with coughing RESP: Endorses wheezing GI: Denies abdominal pain : Denies dysuria SKIN: Denies rash. MSK: Denies joint pain. NEURO: Denies headache ROS Other: All systems not noted in ROS Statement are negative. Past Medical History Past Medical History: Asthma, Chest Pain / Angina, COPD, GERD/Reflux, Myocardial Infarction ([place]), Seizure Disorder, Syncope Additional Past Medical History / Comment(s): migraines, last seizure 4 months ago [place] x 2, low blood pressures, irregular heart beat, tachycardia, Last Myocardial Infarction Date:: 10/2016 History of Any Multi-Drug Resistant Organisms: None Reported Past Surgical History: Cholecystectomy, Tubal Ligation Additional Past Surgical History / Comment(s): Tilt table test, wisdom teeth extraction. Past Anesthesia/Blood Transfusion Reactions: Previous Problems w/ Anesthesia Additional Past Anesthesia/Blood Transfusion Reaction / Comment(s): "I get anxious when I wake up when my fiance is not there" Past Psychological History: ADD/ADHD, Anxiety, Bipolar, Depression, PTSD Smoking Status: Former smoker Past Alcohol Use History: None Reported Past Drug Use History: None Reported - Past Family History Father Family Medical History: Cancer Additional Family Medical History / Comment(s): Father at age 61 from lung CA Mother Family Medical History: No Reported History, Seizure Disorder Additional Family Medical History / Comment(s): Mother is alive with history of bipolar/schitzophrenia Brother(s) Additional Family Medical History / Comment(s): She has one half brother that abuses cocaine and methamphetamines. She does not have any contact with him. Patient has 1 sister with no major medical problems. Patient does not have any children. General Exam - General Exam Comments Initial Comments: General: Appears in no acute distress. HEAD: Normal with no signs of head trauma. EYES: PERRLA, EOMI, conjunctiva normal, no discharge. ENT: Hearing grossly intact, normal oropharynx. RESPIRATORY: Mild bilateral end expiratory wheezing. No hypoxia. No acute respiratory distress. C/V: Regular rate and rhythm. S1 and S2 auscultated, no edema, peripheral pulses 2+ and intact throughout ABD: Abd is soft, nontender, nondistended EXT: Normal range of motion, no obvious deformity SKIN: No rashes or lesions observed on exposed skin. NEURO: ANO x 4. Limitations: no limitations Course Vital Signs 04/16/24 04/16/24 04/16/24 09:57 10:43 10:47 Temperature 97.9 F Pulse Rate 103 H 84 88 Respiratory 18 Rate Blood Pressure 102/71 O2 Sat by Pulse 98 Oximetry 04/16/24 11:57 Temperature 98 F Pulse Rate 93 Respiratory 16 Rate Blood Pressure 103/70 O2 Sat by Pulse 99 Oximetry Medical Decision Making - Medical Decision Making Was pt. sent in by a medical professional or institution ([facility], [employer], urgent care, hospital, or senior living...) When possible be specific @ -No Did you speak to anyone other than the patient for history (EMS, parent, family, police, friend...)? What history was obtained from this source @ -No Did you review nursing and triage notes (agree or disagree)? Why? @ -I reviewed and agree with nursing and triage notes Were old charts reviewed (outside hosp., previous admission, EMS record, old EKG, old radiological studies, urgent care reports/EKG's, senior living records)? Report findings @ -No old charts were reviewed Differential Diagnosis (chest pain, altered mental status, abdominal pain women, abdominal pain men, vaginal bleeding, weakness, fever, dyspnea, syncope, headache, dizziness, GI bleed, back pain, seizure, CVA, palpatations, mental health, musculoskeletal)? @ -COVID, flu, RSV, pneumonia, bronchitis, asthma. This list is not all inclus diana. EKG interpreted by me (3pts min.). @ -As above X-rays interpreted by me (1pt min.). @ -Chest x-ray reveals no obvious acute cardiopulmonary process. No infiltrate or infection. CT interpreted by me (1pt min.). @ -None done U/S interpreted by me (1pt. min.). @ -None done What testing was considered but not performed or refused? (CT, X-rays, U/S, labs)? Why? @ -None What meds were considered but not given or refused? Why? @ -None Did you discuss the management of the patient with other professionals (professionals i.e. , PA, [employer], lab, RT, psych nurse, geriatric social work professor, radio program checker, teacher, aircraft electronics technical officer, ed case manager)? Give summary @ -No Was smoking cessation discussed for >3mins.? @ -No Was critical care preformed (if so, how long)? @ -No Were there social determinants of health that impacted care today? How? (Homelessness, low income, unemployed, alcoholism, drug addiction, tr ansportation, low edu. Level, literacy, decrease access to med. care, penitentiary, rehab)? @ -No Was there de-escalation of care discussed even if they declined (Discuss DNR or withdrawal of care, Hospice)? DNR status @ -No What co-morbidities impacted this encounter? (DM, HTN, Smoking, COPD, CAD, Cancer, CVA, ARF, Chemo, Hep., AIDS, mental health diagnosis, sleep apnea, morbid obesity)? @ -Asthma Was patient admitted / discharged? Hospital course, mention meds given and route, prescriptions, significant lab abnormalities, going to OR and other pertinent info. @ -Patient presents with chest tightness when coughing, as well as what appears to be mild asthma exacerbation. Vital signs within acceptable limits. She is requesting basic blood work in addition to chest x-ray. She declines COVID t esting as she took a test yesterday that was negative. Vital signs within acceptable limits. She will be started on IV steroids as well as breathing treatment. Patient was in agreement this plan. She is resting comfortably in bed with no acute complaints. Low concern for cardiac etiology at this time. Screening EKG showed no signs of acute ischemia. Chest x-ray unremarkable. Laboratory studies within acceptable limits. On reevaluation, I discussed results with patient. She expressed understanding. She will be discharged home at this time. Diagnosis asthma and tracheobronchitis. Patient declines prescription for albuterol inhaler as she has them already. I will provide the patient with a prescription for prednisone, doxycycline. I instructed the patient to follow up with their PCP in the next 1-3 days.. I explained that the patient should return to the emergency department if they experience any worsening symptoms. Strict return precautions were discussed with the patient. The patient expressed understanding of these instructions. I answered all questions that the patient had. The patient was discharged home in good condition with their prescriptions and follow up information. Undiagnosed new problem with uncertain prognosis? @ -No Drug Therapy requiring intensive monitoring for toxicity (Heparin, Nitro, Insulin, Cardizem)? @ -No Were any procedures done? @ -No Diagnosis/symptom? @ -Asthma, tracheobronchitis Acute, or Chronic, or Acute on Chronic? @ -Acute on chronic Uncomplicated (without systemic symptoms) or Complicated (systemic symptoms)? @ -Uncomplicated Side effects of treatment? @ -None Exacerbation, Progression, or Severe Exacerbation] @ -No Poses a threat to life or bodily function? @ -Unlikely - Lab Data Result diagrams: 04/16/24 10:32 04/16/24 10:32 Lab Results 04/16/24 04/16/24 Range/Units 10:32 10:32 WBC 6.9 (3.8-10.6) k/uL RBC 4.21 (3.80-5.40) m/uL Hgb 13.8 (11.4-16.0) gm/dL Hct 40.8 (34.0-46.0) % MCV 97.0 (80.0-100.0) fL MCH 32.9 (25.0-35.0) pg MCHC 33.9 (31.0-37.0) g/dL RDW 13.1 (11.5-15.5) % Plt Count 257 (150-450) k/uL MPV 7.2 Neutrophils % 58 % Lymphocytes % 29 % Monocytes % 7 % Eosinophils % 3 % Basophils % 1 % Neutrophils # 4.0 (1.3-7.7) k/uL Lymphocytes # 2.0 (1.0-4.8) k/uL Monocytes # 0.5 (0-1.0) k/uL Eosinophils # 0.2 (0-0.7) k/uL Basophils # 0.0 (0-0.2) k/uL Sodium 138 (137-145) mmol/L Potassium 4.3 (3.5-5.1) mmol/L Chloride 111 H (98-107) mmol/L Carbon Dioxide 19 L (22-30) mmol/L Anion Gap 8 mmol/L BUN 13 (7-17) mg/dL Creatinine 0.64 (0.52-1.04) mg/dL Est GFR (CKD-EPI)AfAm >90 (>60 ml/min/1.73 sqM) Est GFR (CKD-EPI)NonAf >90 (>60 ml/min/1.73 sqM) Glucose 83 (74-99) mg/dL Calcium 9.4 (8.4-10.2) mg/dL - EKG Data -: EKG Interpreted by Me EKG Comments: 12-lead Electrocardiogram Interpretation Note EKG was reviewed and interpreted by myself. 12-lead ECG performed at 1003 is interpreted by me as revealing normal sinus rhythm with incomplete right bundle branch block. At a rate of 93 beats per minute. Left axis deviation. NE interval is 158 ms, QRS duration is 104 ms, QTc is 401 ms.. There were no ST or T wave abnormalities to suggest myocardial ischemia or injury. R wave progression across the precordium was satisfactory. By my interpretation this EKG is non-diagnostic for acute ischemia. Disposition Clinical Impression: Asthma, Tracheobronchitis Disposition: HOME SELF-CARE Condition: Good Instructions (If sedation given, give patient instructions): Asthma (ED), Acute Bronchitis (ED) Prescriptions: predniSONE [Deltasone] 40 mg PO DAILY 5 Days #10 tab Doxycycline Hyclate 100 mg PO BID 7 Days #14 cap Is patient prescribed a controlled substance at d/c from ED?: No Referrals: Brooke Martin MD [Primary Care Provider] - 1-2 days Time of Disposition: 11:50
[2024-04-16 10:41] LABS: Basophils % (A) 1 %; Eosinophils # (A) 0.2 k/uL (0-0.7); Eosinophils % (A) 3 %; HCT 40.8 % (34.0-46.0); HGB 13.8 gm/dL (11.4-16.0); Lymphocytes % (A) 29 %; MCH 32.9 pg (25.0-35.0); MCHC 33.9 g/dL (31.0-37.0); Mean Platelet Volume 7.2; Monocytes # (A) 0.5 k/uL (0-1.0); Monocytes % (A) 7 %; Neutrophils % (A) 58 %; Platelet Count 257 k/uL (150-450); RBC 4.21 m/uL (3.80-5.40); RDW 13.1 % (11.5-15.5); WBC 6.9 k/uL (3.8-10.6)
[2024-04-16] MEDS: IPRATROPIUM-ALBUTEROL 3 ML NEB INHALATION STA (10:43)
--- NOTE | 2024-04-16 10:43 | XR ---
EXAMINATION TYPE: XR chest 2V DATE OF EXAM: 04/16/2024 COMPARISON: NONE TECHNIQUE: PA and lateral views submitted. HISTORY: Cough FINDINGS: The lungs are clear and there is no pneumothorax, pleural effusion, or focal pneumonia. Heart size normal and no overt failure. Osseous structures demonstrate hypertrophic and degenerative changes of the spine. Curvature of the spine. Surgical clips gallbladder fossa. IMPRESSION: 1. No acute process.
[2024-04-16 10:54] LABS: African American GFR (CKD) >90 (>60 ml/min/1.73 sqM); Anion Gap 8 mmol/L; Blood Urea Nitrogen 13 mg/dL (7-17); Calcium 9.4 mg/dL (8.4-10.2); Carbon Dioxide 19 mmol/L (22-30); Chloride 111 mmol/L (98-107); Glucose 83 mg/dL (74-99); Non-African American GFR(CKD) >90 (>60 ml/min/1.73 sqM); Potassium 4.3 mmol/L (3.5-5.1); Sodium 138 mmol/L (137-145)
[2024-04-16] MEDS: DOXYCYCLINE 100 MG CAP PO STA (11:56)
[2024-04-16 12:00] VITALS: BP 103/70; PULSE 93; RESP 16; TEMP 98
== END 2024-04-16 12:00 | disposition home or self-care (01) ==
LOC: EC 09:56
DX: J45.901 Unspecified asthma with (acute) exacerbation (principal); I45.10 Unspecified right bundle-branch block; Z88.1 Allergy status to other antibiotic agents; Z88.2 Allergy status to sulfonamides; Z88.5 Allergy status to narcotic agent; Z88.7 Allergy status to serum and vaccine; Z88.8 Allergy status to other drugs, medicaments and biological substances; Z91.012 Allergy to eggs; Z79.51 Long term (current) use of inhaled steroids; Z79.899 Other long term (current) drug therapy; Z87.891 Personal history of nicotine dependence
CPT/HCPCS: 36415; 94640; 93005; 80048; 85025; 71046; 99285; 96374; J2919

== ENCOUNTER 2024-05-22 17:36 | Emergency (ER) | payer OTHER ==
[2024-05-22 17:44] VITALS: RESP 18; TEMP 98.9
[2024-05-22] MEDS: KETOROLAC 15 MG/ML 1 ML VIAL IM STA (18:19)
--- NOTE | 2024-05-22 18:27 | ED ---
Upper Extremity HPI - General Chief Complaint: Extremity Injury, Upper Stated Complaint: Right shoulder injury Time Seen by Provider: 05/22/24 17:51 Source: patient, RN notes reviewed Mode of arrival: ambulatory Limitations: no limitations - History of Present Illness Initial Comments: 38-year-old female presents emergency department chief complaint of right shoulder pain. Patient states that approximately 1 week ago she was camping when she felt like she may have dislocated her right shoulder. She states that her friend relocated her right shoulder today. Patient does have full range of motion of the right arm with minimal pain. She denies paresthesias. Denies previous surgeries to the right arm. Denies fall at the time of this injury. No other acute complaints at this time. - Related Data Home Medications Medication Instructions Recorded Confirmed OXcarbazepine [Trileptal] 600 mg PO BID 09/29/19 05/23/21 ARIPiprazole [Abilify] 30 mg PO DAILY 05/23/21 05/23/21 Albuterol Nebulized [Ventolin 2.5 mg INHALATION RT-TID PRN 05/23/21 05/23/21 Nebulized] Albuterol Sulfate [Proair Hfa] 2 puff INHALATION RT-QID PRN 05/23/21 05/23/21 Budesonide/Formoterol Fumarate 2 puff INHALATION RT-BID 05/23/21 05/23/21 [Symbicort 160-4.5 Mcg Inhaler] Butalb/APAP/Caff 50-325-40Mg 1 tab PO Q8H PRN 05/23/21 05/23/21 [Fioricet 50-325-40] Cariprazine HCl [Vraylar] 3 mg PO DAILY 05/23/21 05/23/21 Cariprazine HCl [Vraylar] 6 mg PO HS 05/23/21 05/23/21 Lacosamide [Vimpat] 200 mg PO BID 05/23/21 05/23/21 Meloxicam [Mobic] 7.5 mg PO DAILY 05/23/21 05/23/21 Topiramate [Trokendi Xr] 100 mg PO DAILY 05/23/21 05/23/21 Venlafaxine HCl [Effexor XR] 75 mg PO DAILY 05/23/21 05/23/21 cloNIDine HCL [Catapres] 0.1 mg PO HS 05/23/21 05/23/21 guanFACINE HCL [Intuniv] 2 mg PO BID 05/23/21 05/23/21 hydrOXYzine pamoate [hydrOXYzine 100 mg PO TID PRN 05/23/21 05/23/21 PAMOATE] lamoTRIgine [LaMICtal] 50 mg PO BID 05/23/21 05/23/21 ondansetron HCL [Zofran] 8 mg PO Q12HR PRN 05/23/21 05/23/21 traZODone HCL 150 mg PO HS 05/23/21 05/23/21 Previous Rx's Medication Instructions Recorded Famotidine [Pepcid] 20 mg PO BID #5 tablet 10/06/19 Ibuprofen [Motrin] 600 mg PO Q8HR PRN #20 tab 07/10/20 Hydrocortisone Suppository 25 mg RECTAL BID 7 Days #14 10/31/23 [Anusol-Hc] suppositor Levofloxacin [Levaquin] 750 mg PO DAILY 5 Days #5 tab 10/31/23 Phenazopyridine [Pyridium] 200 mg PO TID PRN #9 tablet 10/31/23 Amoxic-Pot Clav 875-125Mg 1 tab PO Q12HR #20 tab 01/29/24 [Augmentin 875-125] Doxycycline Hyclate 100 mg PO BID 7 Days #14 cap 04/16/24 predniSONE [Deltasone] 40 mg PO DAILY 5 Days #10 tab 04/16/24 Cyclobenzaprine [Flexeril] 5 mg PO TID PRN #15 tablet 05/22/24 Allergies Allergy/AdvReac Type Severity Reaction Status Date / Time azithromycin Allergy Rash/Hives Verified 04/16/24 09:59 divalproex sodium Allergy "had Verified 04/16/24 09:59 [From Depakote] seizure when coming off" hydrocodone Allergy Rash/Hives Verified 04/16/24 09:59 phenytoin [From Dilantin] Allergy Unknown Verified 04/16/24 09:59 Quinolones Allergy Rash/Hives Verified 04/16/24 09:59 sulfamethoxazole Allergy Rash/Hives Verified 04/16/24 09:59 [From Bactrim] tramadol Allergy Rash/Hives Verified 04/16/24 09:59 trimethoprim [From Bactrim] Allergy Rash/Hives Verified 04/16/24 09:59 codeine AdvReac Vertigo Verified 04/16/24 09:59 diphenhydramine HCl AdvReac Rapid Verified 04/16/24 09:59 [From Benadryl] Heart Rate egg AdvReac Nausea & Verified 04/16/24 09:59 Vomiting Influenza Virus Vaccines AdvReac Nausea & Verified 04/16/24 09:59 Vomiting sulfate ion AdvReac Anaphylaxis Verified 04/16/24 09:59 Review of Systems ROS Statement: Those systems with pertinent positive or pertinent negative responses have been documented in the HPI. ROS Other: All systems not noted in ROS Statement are negative. Past Medical History Past Medical History: Asthma, Chest Pain / Angina, COPD, GERD/Reflux, Myocardial Infarction (SC), Seizure Disorder, Syncope Additional Past Medical History / Comment(s): migraines, last seizure 4 months ago SC x 2, low blood pressures, irregular heart beat, tachycardia, Last Myocardial Infarction Date:: 10/2016 History of Any Multi-Drug Resistant Organisms: None Reported Past Surgical History: Cholecystectomy, Tubal Ligation Additional Past Surgical History / Comment(s): Tilt table test, wisdom teeth extraction. Past Anesthesia/Blood Transfusion Reactions: Previous Problems w/ Anesthesia Additional Past Anesthesia/Blood Transfusion Reaction / Comment(s): "I get anxious when I wake up when my fiance is not there" Past Psychological History: ADD/ADHD, Anxiety, Bipolar, Depression, PTSD Smoking Status: Former smoker Past Alcohol Use History: None Reported Past Drug Use History: None Reported - Past Family History Father Family Medical History: Cancer Additional Family Medical History / Comment(s): Father at age 61 from lung CA Mother Family Medical History: No Reported History, Seizure Disorder Additional Family Medical History / Comment(s): Mother is alive with history of bipolar/schitzophrenia Brother(s) Additional Family Medical History / Comment(s): She has one half brother that abuses cocaine and methamphetamines. She does not have any contact with him. Patient has 1 sister with no major medical problems. Patient does not have any children. General Exam Limitations: no limitations General appearance: alert, in no apparent distress Head exam: Present: atraumatic, normocephalic, normal inspection Eye exam: Present: normal appearance, PERRL, EOMI. Absent: scleral icterus, conjunctival injection, periorbital swelling ENT exam: Present: normal exam, mucous membranes moist Neck exam: Present: normal inspection. Absent: tenderness, meningismus, lymphadenopathy Respiratory exam: Present: normal lung sounds bilaterally. Absent: respiratory distress, wheezes, rales, rhonchi, stridor Cardiovascular Exam: Present: regular rate, normal rhythm, normal heart sounds. Absent: systolic murmur, diastolic murmur, rubs, gallop, clicks GI/Abdominal exam: Present: soft, normal bowel sounds. Absent: distended, tenderness, guarding, rebound, rigid Right Shoulder Exam: Present: normal inspection, full ROM, tenderness (with ROM flexion). Absent: erythema, tenderness over AC joint Neuro motor exam: Present: wrist extension intact, thumb opposition intact Vascular: Present: normal capillary refill, radial pulse (2+). Absent: vascular compromise Back exam: Present: normal inspection Skin exam: Present: warm, dry, intact, normal color. Absent: rash Course Vital Signs 05/22/24 17:38 Temperature 98.9 F Pulse Rate 97 Respiratory 18 Rate Blood Pressure 119/80 O2 Sat by Pulse 97 Oximetry Medical Decision Making - Medical Decision Making Was pt. sent in by a medical professional or institution (DEBRA Johnston, DISHWASHER PREPARER, urgent care, hospital, or residential...) When possible be specific @ -No Did you speak to anyone other than the patient for history (EMS, parent, family, police, friend...)? What history was obtained from this source @ -No Did you review nursing and triage notes (agree or disagree)? Why? @ -I reviewed and agree with nursing and triage notes Were old charts reviewed (outside hosp., previous admission, EMS record, old EKG, old radiological studies, urgent care reports/EKG's, residential records)? Report findings @ -No old charts were reviewed Differential Diagnosis (chest pain, altered mental status, abdominal pain women, abdominal pain men, vaginal bleeding, weakness, fever, dyspnea, syncope, headache, dizziness, GI bleed, back pain, seizure, CVA, palpatations, mental health, musculoskeletal)? @ -Differential Musculoskeletal Muscular strain, contusion, ligament sprain, fracture, arthritis, septic arthritis, bursitis, cellulitis, muscle spasm, nerve compression, DVT, arterial occlusion, herpes zoster, electrolyte abnormality, tumor.... This is not meant to be in all inclusive list EKG interpreted by me (3pts min.). @ -None X-rays interpreted by me (1pt min.). @ -The right shoulder no acute osseous abnormality noted. CT interpreted by me (1pt min.). @ -None done U/S interpreted by me (1pt. min.). @ -None done What testing was considered but not performed or refused? (CT, X-rays, U/S, labs)? Why? @ -None What meds were considered but not given or refused? Why? @ -None Did you discuss the management of the patient with other professionals (professionals i.e. , PA, DISHWASHER PREPARER, lab, RT, psych nurse, social media senior associate, computed tomography technician, teacher, activities officer, comp field case manager)? Give summary @ -No Was smoking cessation discussed for >3mins.? @ -No Was critical care preformed (if so, how long)? @ -No Were there social determinants of health that impacted care today? How? (Homelessness, low income, unemployed, alcoholism, drug addiction, transportation, low edu. Level, literacy, decrease access to med. care, snf, rehab)? @ -No Was there de-escalation of care discussed even if they declined (Discuss DNR or withdrawal of care, Hospice)? DNR status @ -No What co-morbidities impacted this encounter? (DM, HTN, Smoking, COPD, CAD, Cancer, CVA, ARF, Chemo, Hep., AIDS, mental health diagnosis, sleep apnea, morbid obesity)? @ -None Was patient admitted / discharged? Hospital course, mention meds given and route, prescriptions, significant lab abnormalities, going to OR and other pertinent info. @ -discharged. 38-year-old female with right shoulder pain. On examination patient noted to have full range of motion of the right shoulder with mild pain. There are no neurovascular deficits noted, strong radial pulse. Patient is provided with Toradol pending results of x-ray. X-ray negative for acute osseous abnormality. Patient is provided with a sling for comfort to use over the next week and a prescription for Flexeril to take as needed. Recommend patient follows up with her primary care provider next week for further evaluation. All questions answered at bedside and strict return parameters discussed with the patient she is verbalized understanding. Discussed with Dr. Swan Undiagnosed new problem with uncertain prognosis? @ -No Drug Therapy requiring intensive monitoring for toxicity (Heparin, Nitro, Insulin, Cardizem)? @ -No Were any procedures done? @ -No Diagnosis/symptom? @ -right shoulder pain Acute, or Chronic, or Acute on Chronic? @ -Acute Uncomplicated (without systemic symptoms) or Complicated (systemic symptoms)? @ -uncomplicated Side effects of treatment? @ -No Exacerbation, Progression, or Severe Exacerbation? @ -No Poses a threat to life or bodily function? How? (Chest pain, USA, SC, pneumonia, PE, COPD, DKA, ARF, appy, cholecystitis, CVA, Diverticulitis, Homicidal, Suicidal, threat to staff... and all critical care pts) @ -No Disposition Clinical Impression: Right shoulder injury Disposition: HOME SELF-CARE Condition: Good Instructions (If sedation given, give patient instructions): Shoulder Pain (ED) Additional Instructions: Return to emergency department any new or worsening symptoms. Continue take Tylenol, Motrin, Flexeril as needed for pain relief. Wear sling as needed. Follow-up with your primary care provider next week for further evaluation. Prescriptions: Cyclobenzaprine [Flexeril] 5 mg PO TID PRN #15 tablet PRN Reason: Muscle Spasm Is patient prescribed a controlled substance at d/c from ED?: No Referrals: Brooke Martin MD [Primary Care Provider] - 1-2 days Time of Disposition: 19:07
--- NOTE | 2024-05-22 18:52 | XR ---
EXAMINATION TYPE: XR shoulder complete RT DATE OF EXAM: 05/22/2024 6:48 PM CLINICAL INDICATION: Female, 38 years old with history of pain; [facility] COMPARISON: None TECHNIQUE: XR shoulder complete RT; examined in AP, internally rotated and scapular Y projections. FINDINGS: No evidence of acute osseous pathology, joint dislocation, or soft tissue swelling. The remaining po rtions of the visualized chest are unremarkable. IMPRESSION: No acute osseous pathology.
[2024-05-22 19:41] VITALS: BP 125/74; PULSE 67
== END 2024-05-22 19:41 | disposition home or self-care (01) ==
LOC: EC 17:36
DX: S49.91XA Unspecified injury of right shoulder and upper arm, initial encounter
CPT/HCPCS: 96372; 99283

== ENCOUNTER 2024-06-12 11:37 | Emergency (ER) | payer OTHER ==
[2024-06-12 11:42] VITALS: BP 117/80; PULSE 101; RESP 18; TEMP 98
[2024-06-12] MEDS: KETOROLAC 15 MG/ML 1 ML VIAL IM STA (12:26)
--- NOTE | 2024-06-12 12:26 | XR ---
Left foot. HISTORY: Pain from trauma. COMPARISON: 04/08/2024. TECHNIQUE: 3 views of the left foot were obtained. FINDINGS: There is no acute fracture, dislocation, intraosseous or intra-articular abnormality. IMPRESSION: No significant abnormality. No evidence of acute trauma. [facility], Workstation: [facility], 06/12/2024 12:24 PM
--- NOTE | 2024-06-12 12:31 | ED ---
General Adult HPI - General Chief complaint: Extremity Injury, Lower Stated complaint: Left foot injury Time Seen by Provider: 06/12/24 11:42 Source: patient, RN notes reviewed Mode of arrival: wheelchair Limitations: no limitations - History of Present Illness Initial comments: 39 year old female presents to ED with chief complaint of left foot pain. States that she was moving a mattress and kicked a chest a day ago. Reports that she is unable to move left 5th toe; however, she is able to stand and walk and denies paresthesia Acetaminophen provides no relief. - Related Data Home Medications Medication Instructions Recorded Confirmed OXcarbazepine [Trileptal] 600 mg PO BID 09/29/19 05/23/21 ARIPiprazole [Abilify] 30 mg PO DAILY 05/23/21 05/23/21 Albuterol Nebulized [Ventolin 2.5 mg INHALATION RT-TID PRN 05/23/21 05/23/21 Nebulized] Albuterol Sulfate [Proair Hfa] 2 puff INHALATION RT-QID PRN 05/23/21 05/23/21 Budesonide/Formoterol Fumarate 2 puff INHALATION RT-BID 05/23/21 05/23/21 [Symbicort 160-4.5 Mcg Inhaler] Butalb/APAP/Caff 50-325-40Mg 1 tab PO Q8H PRN 05/23/21 05/23/21 [Fioricet 50-325-40] Cariprazine HCl [Vraylar] 3 mg PO DAILY 05/23/21 05/23/21 Cariprazine HCl [Vraylar] 6 mg PO HS 05/23/21 05/23/21 Lacosamide [Vimpat] 200 mg PO BID 05/23/21 05/23/21 Meloxicam [Mobic] 7.5 mg PO DAILY 05/23/21 05/23/21 Topiramate [Trokendi Xr] 100 mg PO DAILY 05/23/21 05/23/21 Venlafaxine HCl [Effexor XR] 75 mg PO DAILY 05/23/21 05/23/21 cloNIDine HCL [Catapres] 0.1 mg PO HS 05/23/21 05/23/21 guanFACINE HCL [Intuniv] 2 mg PO BID 05/23/21 05/23/21 hydrOXYzine pamoate [hydrOXYzine 100 mg PO TID PRN 05/23/21 05/23/21 PAMOATE] lamoTRIgine [LaMICtal] 50 mg PO BID 05/23/21 05/23/21 ondansetron HCL [Zofran] 8 mg PO Q12HR PRN 05/23/21 05/23/21 traZODone HCL 150 mg PO HS 05/23/21 05/23/21 Previous Rx's Medication Instructions Recorded Famotidine [Pepcid] 20 mg PO BID #5 tablet 10/06/19 Ibuprofen [Motrin] 600 mg PO Q8HR PRN #20 tab 07/10/20 Hydrocortisone Suppository 25 mg RECTAL BID 7 Days #14 10/31/23 [Anusol-Hc] suppositor Levofloxacin [Levaquin] 750 mg PO DAILY 5 Days #5 tab 10/31/23 Phenazopyridine [Pyridium] 200 mg PO TID PRN #9 tablet 10/31/23 Amoxic-Pot Clav 875-125Mg 1 tab PO Q12HR #20 tab 01/29/24 [Augmentin 875-125] Doxycycline Hyclate 100 mg PO BID 7 Days #14 cap 04/16/24 predniSONE [Deltasone] 40 mg PO DAILY 5 Days #10 tab 04/16/24 Cyclobenzaprine [Flexeril] 5 mg PO TID PRN #15 tablet 05/22/24 Allergies Allergy/AdvReac Type Severity Reaction Status Date / Time azithromycin Allergy Rash/Hives Verified 06/12/24 11:42 divalproex sodium Allergy "had Verified 06/12/24 11:42 [From Depakote] seizure when coming off" hydrocodone Allergy Rash/Hives Verified 06/12/24 11:42 phenytoin [From Dilantin] Allergy Unknown Verified 06/12/24 11:42 Quinolones Allergy Rash/Hives Verified 06/12/24 11:42 sulfamethoxazole Allergy Rash/Hives Verified 06/12/24 11:42 [From Bactrim] tramadol Allergy Rash/Hives Verified 06/12/24 11:42 trimethoprim [From Bactrim] Allergy Rash/Hives Verified 06/12/24 11:42 codeine AdvReac Vertigo Verified 06/12/24 11:42 diphenhydramine HCl AdvReac Rapid Verified 06/12/24 11:42 [From Benadryl] Heart Rate egg AdvReac Nausea & Verified 06/12/24 11:42 Vomiting Influenza Virus Vaccines AdvReac Nausea & Verified 06/12/24 11:42 Vomiting sulfate ion AdvReac Anaphylaxis Verified 06/12/24 11:42 Review of Systems ROS Statement: Those systems with pertinent positive or pertinent negative responses have been documented in the HPI. ROS Other: All systems not noted in ROS Statement are negative. Past Medical History Past Medical History: Asthma, Chest Pain / Angina, COPD, GERD/Reflux, Myocardial Infarction (VT), Seizure Disorder, Syncope Additional Past Medical History / Comment(s): migraines, last seizure 4 months ago [place] x 2, low blood pressures, irregular heart beat, tachycardia, Last Myocardial Infarction Date:: 10/2016 History of Any Multi-Drug Resistant Organisms: None Reported Past Surgical History: Cholecystectomy, Tubal Ligation Additional Past Surgical History / Comment(s): Tilt table test, wisdom teeth extraction. Past Anesthesia/Blood Transfusion Reactions: Previous Problems w/ Anesthesia Additional Past Anesthesia/Blood Transfusion Reaction / Comment(s): "I get anxious when I wake up when my fiance is not there" Past Psychological History: ADD/ADHD, Anxiety, Bipolar, Depression, PTSD Smoking Status: Former smoker Past Alcohol Use History: None Reported Past Drug Use History: None Reported - Past Family History Father Family Medical History: Cancer Additional Family Medical History / Comment(s): Father at age 61 from lung CA Mother Family Medical History: No Reported History, Seizure Disorder Additional Family Medical History / Comment(s): Mother is alive with history of bipolar/schitzophrenia Brother(s) Additional Family Medical History / Comment(s): She has one half brother that abuses cocaine and methamphetamines. She does not have any contact with him. Patient has 1 sister with no major medical problems. Patient does not have any children. General Exam Limitations: no limitations General appearance: alert, in no apparent distress Head exam: Present: atraumatic, normocephalic, normal inspection Eye exam: Present: normal appearance, PERRL, EOMI. Absent: scleral icterus, conjunctival injection, periorbital swelling ENT exam: Present: normal exam, mucous membranes moist Neck exam: Present: normal inspection. Absent: tenderness, meningismus, lymphadenopathy Respiratory exam: Present: normal lung sounds bilaterally. Absent: respiratory distress, wheezes, rales, rhonchi, stridor Cardiovascular Exam: Present: regular rate, normal rhythm, normal heart sounds. Absent: systolic murmur, diastolic murmur, rubs, gallop, clicks GI/Abdominal exam: Present: normal bowel sounds Extremities exam: Present: normal inspection, full ROM, normal capillary refill. Absent: tenderness, pedal edema, joint swelling, calf tenderness Left Foot/Toe exam: Present: tenderness (Left lateral aspect of foot), swelling Back exam: Present: normal inspection Neurological exam: Present: alert, oriented X3, CN II-XII intact Psychiatric exam: Present: normal affect, normal mood Skin exam: Present: warm, dry, intact, normal color. Absent: rash Course Vital Signs 06/12/24 11:40 Temperature 98.0 F Pulse Rate 101 H Respiratory 18 Rate Blood Pressure 117/80 O2 Sat by Pulse 99 Oximetry Medical Decision Making - Medical Decision Making Was pt. sent in by a medical professional or institution (Dr. PA, FIELD SUPERINTENDENT, urgent care, hospital, or correction...) When possible be specific @ -No Did you speak to anyone other than the patient for history (EMS, parent, family, police, friend...)? What history was obtained from this source @ -No Did you review nursing and triage notes (agree or disagree)? Why? @ -I reviewed and agree with nursing and triage notes Were old charts reviewed (outside hosp., previous admission, EMS record, old EKG, old radiological studies, urgent care reports/EKG's, correction records)? Report findings @ -No old charts were reviewed Differential Diagnosis (chest pain, altered mental status, abdominal pain women, abdominal pain men, vaginal bleeding, weakness, fever, dyspnea, syncope, headache, dizziness, GI bleed, back pain, seizure, CVA, palpatations, mental health, musculoskeletal)? @ -Foot fracture, foot contusion EKG interpreted by me (3pts min.). @ -None X-rays interpreted by me (1pt min.). @ -X-ray left foot no acute fracture CT interpreted by me (1pt min.). @ -None done U/S interpreted by me (1pt. min.). @ -None done What testing was considered but not performed or refused? (CT, X-rays, U/S, labs)? Why? @ -None What meds were considered but not given or refused? Why? @ -None Did you discuss the management of the patient with other professionals (professionals i.e. , PA, FIELD SUPERINTENDENT, lab, RT, psych nurse, social services manager, instrumentation and control technician, teacher, network security officer, nurse outreach case manager)? Give summary @ -No Was smoking cessation discussed for >3mins.? @ -No Was critical care preformed (if so, how long)? @ -No Were there social determinants of health that impacted care today? How? (Homelessness, low income, unemployed, alcoholism, drug addiction, transportation, low edu. Level, literacy, decrease access to med. care, intermediate, rehab)? @ -No Was there de-escalation of care discussed even if they declined (Discuss DNR or withdrawal of care, Hospice)? DNR status @ -No What co-morbidities impacted this encounter? (DM, HTN, Smoking, COPD, CAD, Cancer, CVA, ARF, Chemo, Hep., AIDS, mental health diagnosis, sleep apnea, morbid obesity)? @ -None Was patient admitted / discharged? Hospital course, mention meds given and route, prescriptions, significant lab abnormalities, going to OR and other pertinent info. @ -Discharge patient presented for left foot injury there is no acute fracture. Patient is discharged in stable condition return parameters jess. Undiagnosed new problem with uncertain prognosis? @ -No Drug Therapy requiring intensive monitoring for toxicity (Heparin, Nitro, Insulin, Cardizem)? @ -No Were any procedures done? @ -No Diagnosis/symptom? @ -Left foot contusion Acute, or Chronic, or Acute on Chronic? @ -Acute Uncomplicated (without systemic symptoms) or Complicated (systemic symptoms)? @ -[Uncomplicated Side effects of treatment? @ -No Exacerbation, Progression, or Severe Exacerbation? @ -No Poses a threat to life or bodily function? How? (Chest pain, USA, VT, pneumonia, PE, COPD, DKA, ARF, appy, cholecystitis, CVA, Diverticulitis, Homicidal, Suicidal, threat to staff... and all critical care pts) @ -No Disposition Clinical Impression: Contusion of foot Disposition: HOME SELF-CARE Instructions (If sedation given, give patient instructions): Foot Contusion (ED) Additional Instructions: Please return to the Emergency Department if symptoms worsen or any other concerns. Is patient prescribed a controlled substance at d/c from ED?: No Referrals: Brooke Martin MD [Primary Care Provider] - 1-2 days Time of Disposition: 12:37
== END 2024-06-12 13:00 | disposition home or self-care (01) ==
LOC: EC 11:37
DX: S99.922A Unspecified injury of left foot, initial encounter
CPT/HCPCS: 96372; 99283

== ENCOUNTER → 2024-07-23 | Outpatient (CLI) | payer OTHER ==
--- NOTE | 2024-07-23 12:02 | MM ---
Reason for Exam: Screening (asymptomatic). Baseline mammogram. Patient History: Menarche at age 16. Patient has no children. Last menstrual period: 06/07/2024 Risk Values: Emy 5 year model risk: 0.5%. NCI Lifetime model risk: 10.2%. Prior Study Comparison: Patient's first Mammogram. No prior studies available for comparison. Tissue Density: The breasts are almost entirely fatty. Findings: Analyzed By CAD. Right breast: There is no suspicious group of microcalcifications or new suspicious mass. Left breast: There is no suspicious group of microcalcifications or new suspicious mass. Overall Assessment: Negative, BI-RAD 1 Management: Screening Mammogram of both breasts in [address] [facility] will attempt to contact patient to return for supplemental views and ultrasound if indicated. Patient should continue monthly self-breast exams. A clinical breast exam by your physician is recommended on an annual basis. This exam should not preclude additional follow-up of suspicious palpable abnormalities. Note on Emy scores and lifetime risk: 1. A Emy score greater than 3% is considered moderate risk. If this is the case, consider specialist referral to assess eligibility for a risk reducing agent. 2. If overall lifetime risk for the development of breast cancer is 20% or higher, the patient may qualify for future screening with alternating mammogram and breast MRI. [facility], , 07/23/2024 11:59 AM. Electronically signed and approved by: Miguel Osullivan DO
== END | disposition home or self-care (01) ==
LOC: RADMAMWWP 11:40
PROVIDERS: ATTEND Family Medicine
CPT/HCPCS: 77063; 77067

== ENCOUNTER 2024-08-06 14:36 | Emergency (ER) | payer OTHER ==
[2024-08-06 15:08] VITALS: RESP 18; TEMP 98.3
--- NOTE | 2024-08-06 15:38 | ED ---
Lower Extremity Injury HPI - General Source: patient, RN notes reviewed Mode of arrival: wheelchair Limitations: no limitations - History of Present Illness MD Complaint: foot injury Onset/Timin -: days(s) Injury: Foot: Right Severity scale (1-10): 7 Context: fall <Daniel Bear - Last Filed: 08/06/24 15:36> <Taryn Leung - Last Filed: 08/06/24 17:24> - General Chief Complaint: Extremity Injury, Lower Stated Complaint: L foot injury Time Seen by Provider: 08/06/24 14:52 - History of Present Illness Initial Comments: Quick note: This is a 39-year-old female presenting with left lateral foot pain (7 out of 10) following a slip and fall while dancing 4 days ago. Patient endorses increased pain with ambulation and weightbearing. (Daniel Bear) 39-year-old female presenting to the emergency department chief complaint of a injury to her left lateral foot that occurred about 4 days ago while dancing. Patient states that she has pain with ambulation. Denies other injuries at time of the event. (Taryn Leung) - Related Data Home Medications Medication Instructions Recorded Confirmed OXcarbazepine [Trileptal] 600 mg PO BID 09/29/19 05/23/21 ARIPiprazole [Abilify] 30 mg PO DAILY 05/23/21 05/23/21 Albuterol Nebulized [Ventolin 2.5 mg INHALATION RT-TID PRN 05/23/21 05/23/21 Nebulized] Albuterol Sulfate [Proair Hfa] 2 puff INHALATION RT-QID PRN 05/23/21 05/23/21 Budesonide/Formoterol Fumarate 2 puff INHALATION RT-BID 05/23/21 05/23/21 [Symbicort 160-4.5 Mcg Inhaler] Butalb/APAP/Caff 50-325-40Mg 1 tab PO Q8H PRN 05/23/21 05/23/21 [Fioricet 50-325-40] Cariprazine HCl [Vraylar] 3 mg PO DAILY 05/23/21 05/23/21 Cariprazine HCl [Vraylar] 6 mg PO HS 05/23/21 05/23/21 Lacosamide [Vimpat] 200 mg PO BID 05/23/21 05/23/21 Meloxicam [Mobic] 7.5 mg PO DAILY 05/23/21 05/23/21 Topiramate [Trokendi Xr] 100 mg PO DAILY 05/23/21 05/23/21 Venlafaxine HCl [Effexor XR] 75 mg PO DAILY 05/23/21 05/23/21 cloNIDine HCL [Catapres] 0.1 mg PO HS 05/23/21 05/23/21 guanFACINE HCL [Intuniv] 2 mg PO BID 05/23/21 05/23/21 hydrOXYzine pamoate [hydrOXYzine 100 mg PO TID PRN 05/23/21 05/23/21 PAMOATE] lamoTRIgine [LaMICtal] 50 mg PO BID 05/23/21 05/23/21 ondansetron HCL [Zofran] 8 mg PO Q12HR PRN 05/23/21 05/23/21 traZODone HCL 150 mg PO HS 05/23/21 05/23/21 Previous Rx's Medication Instructions Recorded Famotidine [Pepcid] 20 mg PO BID #5 tablet 10/06/19 Ibuprofen [Motrin] 600 mg PO Q8HR PRN #20 tab 07/10/20 Hydrocortisone Suppository 25 mg RECTAL BID 7 Days #14 10/31/23 [Anusol-Hc] suppositor Levofloxacin [Levaquin] 750 mg PO DAILY 5 Days #5 tab 10/31/23 Phenazopyridine [Pyridium] 200 mg PO TID PRN #9 tablet 10/31/23 Amoxic-Pot Clav 875-125Mg 1 tab PO Q12HR #20 tab 01/29/24 [Augmentin 875-125] Doxycycline Hyclate 100 mg PO BID 7 Days #14 cap 04/16/24 predniSONE [Deltasone] 40 mg PO DAILY 5 Days #10 tab 04/16/24 Cyclobenzaprine [Flexeril] 5 mg PO TID PRN #15 tablet 05/22/24 Ibuprofen [Motrin] 600 mg PO Q8HR PRN #30 tab 08/06/24 Allergies Allergy/AdvReac Type Severity Reaction Status Date / Time azithromycin Allergy Rash/Hives Verified 08/06/24 15:05 divalproex sodium Allergy "had Verified 08/06/24 15:05 [From Depakote] seizure when coming off" hydrocodone Allergy Rash/Hives Verified 08/06/24 15:05 phenytoin [From Dilantin] Allergy Unknown Verified 08/06/24 15:05 Quinolones Allergy Rash/Hives Verified 08/06/24 15:05 sulfamethoxazole Allergy Rash/Hives Verified 08/06/24 15:05 [From Bactrim] tramadol Allergy Rash/Hives Verified 08/06/24 15:05 trimethoprim [From Bactrim] Allergy Rash/Hives Verified 08/06/24 15:05 codeine AdvReac Vertigo Verified 08/06/24 15:05 diphenhydramine HCl AdvReac Rapid Verified 08/06/24 15:05 [From Benadryl] Heart Rate egg AdvReac Nausea & Verified 08/06/24 15:05 Vomiting Influenza Virus Vaccines AdvReac Nausea & Verified 08/06/24 15:05 Vomiting sulfate ion AdvReac Anaphylaxis Verified 08/06/24 15:05 Review of Systems ROS Other: All systems not noted in ROS Statement are negative. <Daniel Bear - Last Filed: 08/06/24 15:36> ROS Other: All systems not noted in ROS Statement are negative. <Taryn Leung - Last Filed: 08/06/24 17:24> ROS Statement: Those systems with pertinent positive or pertinent negative responses have been documented in the HPI. Past Medical History Past Medical History: Asthma, Chest Pain / Angina, COPD, GERD/Reflux, Myocardial Infarction (LA), Seizure Disorder, Syncope Additional Past Medical History / Comment(s): migraines, last seizure 4 months ago LA x 2, low blood pressures, irregular heart beat, tachycardia, Last Myocardial Infarction Date:: 10/2016 History of Any Multi-Drug Resistant Organisms: None Reported Past Surgical History: Cholecystectomy, Tubal Ligation Additional Past Surgical History / Comment(s): Tilt table test, wisdom teeth extraction. Past Anesthesia/Blood Transfusion Reactions: Previous Problems w/ Anesthesia Additional Past Anesthesia/Blood Transfusion Reaction / Comment(s): "I get anxious when I wake up when my fiance is not there" Past Psychological History: ADD/ADHD, Anxiety, Bipolar, Depression, PTSD Smoking Status: Former smoker Past Alcohol Use History: None Reported Past Drug Use History: None Reported - Past Family History Father Family Medical History: Cancer Additional Family Medical History / Comment(s): Father at age 61 from lung CA Mother Family Medical History: No Reported History, Seizure Disorder Additional Family Medical History / Comment(s): Mother is alive with history of bipolar/schitzophrenia Brother(s) Additional Family Medical History / Comment(s): She has one half brother that abuses cocaine and methamphetamines. She does not have any contact with him. Patient has 1 sister with no major medical problems. Patient does not have any children. <Daniel Bear - Last Filed: 08/06/24 15:36> General Exam Limitations: no limitations <Daniel Bear - Last Filed: 08/06/24 15:36> General appearance: alert, in no apparent distress ENT exam: Present: normal exam, mucous membranes moist Neck exam: Present: normal inspection. Absent: tenderness, meningismus, lymphadenopathy Respiratory exam: Present: normal lung sounds bilaterally. Absent: respiratory distress, wheezes, rales, rhonchi, stridor Cardiovascular Exam: Present: regular rate, normal rhythm, normal heart sounds. Absent: systolic murmur, diastolic murmur, rubs, gallop, clicks GI/Abdominal exam: Present: soft, normal bowel sounds. Absent: distended, tenderness, guarding, rebound, rigid Left Foot/Toe exam: Present: tenderness, swelling, ecchymosis (lateral foot) Neurovascular tendon exam: Present: no vascular compromise. Absent: abnormal cap refill, extremity cold to touch Gait: observed and limited by pain Back exam: Present: normal inspection Skin exam: Present: warm, dry, intact, normal color. Absent: rash <Taryn Leung - Last Filed: 08/06/24 17:24> - General Exam Comments Initial Comments: Visual Physical Exam Vital signs reviewed General: Well-appearing, nontoxic, no acute distress. Head: Normocephalic, atraumatic Eyes: PERRLA, EOMI ENT: Airway patent Chest: Nonlabored breathing Skin: No visual rash, normal skin tone Neuro: Alert and oriented 3 Musculoskeletal: Small protrusion noted on the lateral aspect of left foot with associated tenderness (Daniel Bear) Course Vital Signs 08/06/24 15:05 Temperature 98.3 F Pulse Rate 95 Respiratory 18 Rate Blood Pressure 110/74 O2 Sat by Pulse 99 Oximetry Procedures - Orthopedic Splinting/Casting Injury #1 Side: left Lower Extremity Injury Location: short leg Lower Extremity Immobilizer: posterior splint, Mann wrap, synthetic pre-padded splint Other Orthopedic Equipment: crutches <Taryn Leung - Last Filed: 08/06/24 17:24> Medical Decision Making <Daniel Bear - Last Filed: 08/06/24 15:36> <Taryn Leung - Last Filed: 08/06/24 17:24> - Medical Decision Making I completed the quick note portion of this chart signed PALAK Stover (Daniel Bear) Was pt. sent in by a medical professional or institution ([facility], [facility], urgent care, hospital, or residential...) When possible be specific @ -No Did you speak to anyone other than the patient for history (EMS, parent, family, police, friend...)? What history was obtained from this source @ -No Did you review nursing and triage notes (agree or disagree)? Why? @ -I reviewed and agree with nursing and triage notes Were old charts reviewed (outside hosp., previous admission, EMS record, old EKG, old radiological studies, urgent care reports/EKG's, residential records)? Report findings @ -No old charts were reviewed Differential Diagnosis (chest pain, altered mental status, abdominal pain women, abdominal pain men, vaginal bleeding, weakness, fever, dyspnea, syncope, headache, dizziness, GI bleed, back pain, seizure, CVA, palpatations, mental health, musculoskeletal)? @ -Differential Musculoskeletal Muscular strain, contusion, ligament sprain, fracture, arthritis, septic arthritis, bursitis, cellulitis, muscle spasm, nerve compression, DVT, arterial occlusion, herpes zoster, electrolyte abnormality, tumor.... This is not meant to be in all inclusive list EKG interpreted by me (3pts min.). @ -none X-rays interpreted by me (1pt min.). @ -X-ray of the left foot reveals no acute osseous abnormality what appears to be healing proximal phalanx fracture of the fifth digit CT interpreted by me (1pt min.). @ -None done U/S interpreted by me (1pt. min.). @ -None done What testing was considered but not performed or refused? (CT, X-rays, U/S, labs)? Why? @ -None What meds were considered but not given or refused? Why? @ -None Did you discuss the management of the patient with other professionals (professionals i.e. , PA, [facility], lab, RT, psych nurse, social work specialist, criminal defense lawyer, teacher, quarantine officer, case making machine operator)? Give summary @ -No Was smoking cessation discussed for >3mins.? @ -No Was critical care preformed (if so, how long)? @ -No Were there social determinants of health that impacted care today? How? (Homelessness, low income, unemployed, alcoholism, drug addiction, transportation, low edu. Level, literacy, decrease access to med. care, fpc, rehab)? @ -No Was there de-escalation of care discussed even if they declined (Discuss DNR or withdrawal of care, Hospice)? DNR status @ -No What co-morbidities impacted this encounter? (DM, HTN, Smoking, COPD, CAD, Cancer, CVA, ARF, Chemo, Hep., AIDS, mental health diagnosis, sleep apnea, morbid obesity)? @ -None Was patient admitted / discharged? Hospital course, mention meds given and route, prescriptions, significant lab abnormalities, going to OR and other pertinent info. @ -Discharge. 39-year-old female with a lateral foot pain. Patient was evaluated emergency department waiting room as a quick note where x-ray was ordered. On my evaluation patient is noted to have left lateral foot ecchymosis and tenderness to palpation with no obvious deformity. Pedal pulse intact. X- ray unremarkable for acute process. Patient is requesting placement in a splint as she is concern for further injury and states that she does see health education specialist and would like to follow-up with them. Patient is also provided with description for Motrin and crutches. Discussed with Dr. Orozco Undiagnosed new problem with uncertain prognosis? @ -No Drug Therapy requiring intensive monitoring for toxicity (Heparin, Nitro, Insulin, Cardizem)? @ -No Were any procedures done? @ -orthopedic splinting Diagnosis/symptom? @ -Foot sprain Acute, or Chronic, or Acute on Chronic? @ -acute Uncomplicated (without systemic symptoms) or Complicated (systemic symptoms)? @ -uncomplicated Side effects of treatment? @ -No Exacerbation, Progression, or Severe Exacerbation? @ -No Poses a threat to life or bodily function? How? (Chest pain, USA, LA, pneumonia, PE, COPD, DKA, ARF, appy, cholecystitis, CVA, Diverticulitis, Homicidal, Suicidal, threat to staff... and all critical care pts) @ -No (Taryn Leung) Disposition <Daniel Bear - Last Filed: 08/06/24 15:36> Is patient prescribed a controlled substance at d/c from ED?: No Time of Disposition: 17:04 <Taryn Leung - Last Filed: 08/06/24 17:24> Clinical Impression: Foot sprain Disposition: HOME SELF-CARE Condition: Good Instructions (If sedation given, give patient instructions): Foot Sprain (ED) Additional Instructions: Please return to the Emergency Department if symptoms worsen or any other concerns. Follow-up as history with health education specialist for further evaluation. Continue to rest, ice, elevate use Tylenol/Motrin as needed for pain relief. Prescriptions: Ibuprofen [Motrin] 600 mg PO Q8HR PRN #30 tab PRN Reason: Pain Referrals: None,Stated [Primary Care Provider] - 1-2 days
--- NOTE | 2024-08-06 16:16 | XR ---
EXAMINATION TYPE: XR foot complete LT DATE OF EXAM: 08/06/2024 3:58 PM COMPARISON: 06/12/2024 CLINICAL INDICATION: Female, 39 years old with history of Fall, left lateral foot pain, TECHNIQUE: 3 view(s) obtained. FINDINGS: Impression a healing fracture at the proximal diaphyseal fifth proximal phalanx. No additional acute or chronic changes evident. Joint spaces are preserved. Soft tissues are normal. Follow up exams can be performed 7-10 days from acute trauma for continued pain. IMPRESSION: 1. No acute osseous abnormality left foot. 2. There appears to be healing of a proximal phalanx fracture fifth digit [facility], , 08/06/2024 4:13 PM
[2024-08-06] MEDS: KETOROLAC 15 MG/ML 1 ML VIAL IM STA (16:27)
[2024-08-06 17:59] VITALS: BP 116/77; PULSE 89
== END 2024-08-06 17:59 | disposition home or self-care (01) ==
LOC: EC 14:36
DX: S93.602A Unspecified sprain of left foot, initial encounter (principal); Z88.7 Allergy status to serum and vaccine; Z88.5 Allergy status to narcotic agent; Z88.8 Allergy status to other drugs, medicaments and biological substances; Z88.2 Allergy status to sulfonamides; Z88.1 Allergy status to other antibiotic agents; Z87.891 Personal history of nicotine dependence; Z91.012 Allergy to eggs; W01.0XXA Fall on same level from slipping, tripping and stumbling without subsequent striking against object, initial encounter; Y93.41 Activity, dancing
CPT/HCPCS: 73630; 29515; 99283; 96372; J1885

== ENCOUNTER 2024-08-09 13:10 | Emergency (ER) | payer OTHER ==
--- NOTE | 2024-08-09 13:36 | XR ---
EXAMINATION TYPE: XR chest 2V DATE OF EXAM: 08/09/2024 1:33 PM COMPARISON: 04/16/2024 CLINICAL INDICATION: Female, 39 years old with history of cough/congestion, TECHNIQUE: XR chest 2V view(s) obtained. FINDINGS: The heart size is normal. The pulmonary vasculature is normal. The lungs are clear. IMPRESSION: 1. No acute pulmonary process. [facility], , 08/09/2024 1:34 PM
--- NOTE | 2024-08-09 14:05 | ED ---
General Adult HPI - General Chief complaint: Upper Respiratory Infection Stated complaint: cough Time Seen by Provider: 08/09/24 13:46 Source: patient, RN notes reviewed Mode of arrival: ambulatory Limitations: no limitations - History of Present Illness Initial comments: 39-year-old female presents to the emergency department for evaluation of upper respiratory symptoms. Patient reports cough and congestion x 3 days. She states that she feels like she had a fever although she did not take her temperature at home. Admits to sore throat. She admits to body aches. Denies nausea, vomiting. Denies ear pain. - Related Data Home Medications Medication Instructions Recorded Confirmed OXcarbazepine [Trileptal] 600 mg PO BID 09/29/19 05/23/21 ARIPiprazole [Abilify] 30 mg PO DAILY 05/23/21 05/23/21 Albuterol Nebulized [Ventolin 2.5 mg INHALATION RT-TID PRN 05/23/21 05/23/21 Nebulized] Albuterol Sulfate [Proair Hfa] 2 puff INHALATION RT-QID PRN 05/23/21 05/23/21 Budesonide/Formoterol Fumarate 2 puff INHALATION RT-BID 05/23/21 05/23/21 [Symbicort 160-4.5 Mcg Inhaler] Butalb/APAP/Caff 50-325-40Mg 1 tab PO Q8H PRN 05/23/21 05/23/21 [Fioricet 50-325-40] Cariprazine HCl [Vraylar] 3 mg PO DAILY 05/23/21 05/23/21 Cariprazine HCl [Vraylar] 6 mg PO HS 05/23/21 05/23/21 Lacosamide [Vimpat] 200 mg PO BID 05/23/21 05/23/21 Meloxicam [Mobic] 7.5 mg PO DAILY 05/23/21 05/23/21 Topiramate [Trokendi Xr] 100 mg PO DAILY 05/23/21 05/23/21 Venlafaxine HCl [Effexor XR] 75 mg PO DAILY 05/23/21 05/23/21 cloNIDine HCL [Catapres] 0.1 mg PO HS 05/23/21 05/23/21 guanFACINE HCL [Intuniv] 2 mg PO BID 05/23/21 05/23/21 hydrOXYzine pamoate [hydrOXYzine 100 mg PO TID PRN 05/23/21 05/23/21 PAMOATE] lamoTRIgine [LaMICtal] 50 mg PO BID 05/23/21 05/23/21 ondansetron HCL [Zofran] 8 mg PO Q12HR PRN 05/23/21 05/23/21 traZODone HCL 150 mg PO HS 05/23/21 05/23/21 Previous Rx's Medication Instructions Recorded Famotidine [Pepcid] 20 mg PO BID #5 tablet 10/06/19 Ibuprofen [Motrin] 600 mg PO Q8HR PRN #20 tab 07/10/20 Hydrocortisone Suppository 25 mg RECTAL BID 7 Days #14 10/31/23 [Anusol-Hc] suppositor Levofloxacin [Levaquin] 750 mg PO DAILY 5 Days #5 tab 10/31/23 Phenazopyridine [Pyridium] 200 mg PO TID PRN #9 tablet 10/31/23 Amoxic-Pot Clav 875-125Mg 1 tab PO Q12HR #20 tab 01/29/24 [Augmentin 875-125] Doxycycline Hyclate 100 mg PO BID 7 Days #14 cap 04/16/24 predniSONE [Deltasone] 40 mg PO DAILY 5 Days #10 tab 04/16/24 Cyclobenzaprine [Flexeril] 5 mg PO TID PRN #15 tablet 05/22/24 Ibuprofen [Motrin] 600 mg PO Q8HR PRN #30 tab 08/06/24 OXcarbazepine [Trileptal] 600 mg PO BID #8 tab 08/06/24 Benzonatate [Tessalon Perles] 100 mg PO TID PRN #15 capsule 08/09/24 Allergies Allergy/AdvReac Type Severity Reaction Status Date / Time azithromycin Allergy Rash/Hives Verified 08/09/24 13:20 divalproex sodium Allergy "had Verified 08/09/24 13:20 [From Depakote] seizure when coming off" hydrocodone Allergy Rash/Hives Verified 08/09/24 13:20 phenytoin [From Dilantin] Allergy Unknown Verified 08/09/24 13:20 Quinolones Allergy Rash/Hives Verified 08/09/24 13:20 sulfamethoxazole Allergy Rash/Hives Verified 08/09/24 13:20 [From Bactrim] tramadol Allergy Rash/Hives Verified 08/09/24 13:20 trimethoprim [From Bactrim] Allergy Rash/Hives Verified 08/09/24 13:20 codeine AdvReac Vertigo Verified 08/09/24 13:20 diphenhydramine HCl AdvReac Rapid Verified 08/09/24 13:20 [From Benadryl] Heart Rate egg AdvReac Nausea & Verified 08/09/24 13:20 Vomiting Influenza Virus Vaccines AdvReac Nausea & Verified 08/09/24 13:20 Vomiting sulfate ion AdvReac Anaphylaxis Verified 08/09/24 13:20 Review of Systems ROS Statement: Those systems with pertinent positive or pertinent negative responses have been documented in the HPI. ROS Other: All systems not noted in ROS Statement are negative. Past Medical History Past Medical History: Asthma, Chest Pain / Angina, COPD, GERD/Reflux, Myocardial Infarction (VA), Seizure Disorder, Syncope Additional Past Medical History / Comment(s): migraines, last seizure 4 months ago [place] x 2, low blood pressures, irregular heart beat, tachycardia, Last Myocardial Infarction Date:: 10/2016 History of Any Multi-Drug Resistant Organisms: None Reported Past Surgical History: Cholecystectomy, Tubal Ligation Additional Past Surgical History / Comment(s): Tilt table test, wisdom teeth extraction. Past Anesthesia/Blood Transfusion Reactions: Previous Problems w/ Anesthesia Additional Past Anesthesia/Blood Transfusion Reaction / Comment(s): "I get anxious when I wake up when my fiance is not there" Past Psychological History: ADD/ADHD, Anxiety, Bipolar, Depression, PTSD Smoking Status: Former smoker Past Alcohol Use History: None Reported Past Drug Use History: None Reported - Past Family History Father Family Medical History: Cancer Additional Family Medical History / Comment(s): Father at age 61 from lung CA Mother Family Medical History: No Reported History, Seizure Disorder Additional Family Medical History / Comment(s): Mother is alive with history of bipolar/schitzophrenia Brother(s) Additional Family Medical History / Comment(s): She has one half brother that abuses cocaine and methamphetamines. She does not have any contact with him. Patient has 1 sister with no major medical problems. Patient does not have any children. General Exam Limitations: no limitations General appearance: alert, in no apparent distress Head exam: Present: atraumatic, normocephalic, normal inspection Eye exam: Present: normal appearance, PERRL, EOMI. Absent: scleral icterus, conjunctival injection, periorbital swelling ENT exam: Present: normal exam, mucous membranes moist, TM's normal bilaterally, normal external ear exam Neck exam: Present: normal inspection. Absent: tenderness, meningismus, lymphadenopathy Respiratory exam: Present: wheezes Cardiovascular Exam: Present: regular rate, normal rhythm, normal heart sounds. Absent: systolic murmur, diastolic murmur, rubs, gallop, clicks GI/Abdominal exam: Present: soft, normal bowel sounds. Absent: distended, tenderness, guarding, rebound, rigid Extremities exam: Present: normal inspection, full ROM, normal capillary refill. Absent: tenderness, pedal edema, joint swelling, calf tenderness Back exam: Present: normal inspection Neurological exam: Present: alert, oriented X3 Psychiatric exam: Present: normal affect, normal mood Skin exam: Present: warm, dry, intact, normal color. Absent: rash Course Vital Signs 08/09/24 08/09/24 08/09/24 13:18 14:23 14:25 Temperature 98.6 F 98.5 F Pulse Rate 108 H 92 Respiratory 20 16 16 Rate Blood Pressure 110/75 112/81 O2 Sat by Pulse 97 98 Oximetry Medical Decision Making - Medical Decision Making Was pt. sent in by a medical professional or institution ([facility], [facility], urgent care, hospital, or jail...) When possible be specific @ -No Did you speak to anyone other than the patient for history (EMS, parent, family, police, friend...)? What history was obtained from this source @ -No Did you review nursing and triage notes (agree or disagree)? Why? @ -I reviewed and agree with nursing and triage notes Were old charts reviewed (outside hosp., previous admission, EMS record, old EKG, old radiological studies, urgent care reports/EKG's, jail records)? Report findings @ -No old charts were reviewed Differential Diagnosis (chest pain, altered mental status, abdominal pain women, abdominal pain men, vaginal bleeding, weakness, fever, dyspnea, syncope, headache, dizziness, GI bleed, back pain, seizure, CVA, palpatations, mental health, musculoskeletal)? @ -COVID, pneumonia, influenza, RSV, viral URI, this list is not all inclusive EKG interpreted by me (3pts min.). @ -None X-rays interpreted by me (1pt min.). @ -Chest x-ray shows no acute process CT interpreted by me (1pt min.). @ -None done U/S interpreted by me (1pt. min.). @ -None done What testing was considered but not performed or refused? (CT, X-rays, U/S, labs)? Why? @ -None What meds were considered but not given or refused? Why? @ -None Did you discuss the management of the patient with other professionals (p yinfessionals i.e. , PA, [facility], lab, RT, psych nurse, director of social media marketing, millinery designer, teacher, risk officer, caseworker intake)? Give summary @ -No Was smoking cessation discussed for >3mins.? @ -No Was critical care preformed (if so, how long)? @ -No Were there social determinants of health that impacted care today? How? (Homelessness, low income, unemployed, alcoholism, drug addiction, transportation, low edu. Level, literacy, decrease access to med. care, care home, rehab)? @ -No Was there de-escalation of care discussed even if they declined (Discuss DNR or withdrawal of care, Hospice)? DNR status @ -No What co-morbidities impacted this encounter? (DM, HTN, Smoking, COPD, CAD, Cancer, CVA, ARF, Chemo, Hep., AIDS, mental health diagnosis, sleep apnea, morbid obesity)? @ -None Was patient admitted / discharged? Hospital course, mention meds given and route, prescriptions, significant lab abnormalities, going to OR and other pertinent info. @ -Discharged. Patient presented to the emergency department for cough, congestion x 3 days. Patient underwent chest x-ray revealing no acute process. COVID, influenza, RSV testing was also negative. Nebulizer treatment was ordered but patient declined and wished to be discharged home. Advised symptomatic treatment at this time. She is understanding and agreeable with plan. Patient stable at time of discharge. Case discussed with Dr. Mendoza. Undiagnosed new problem with uncertain prognosis? @ -No Drug Therapy requiring intensive monitoring for toxicity (Heparin, Nitro, Insulin, Cardizem)? @ -No Were any procedures done? @ -No Diagnosis/symptom? @ -Viral URI Acute, or Chronic, or Acute on Chronic? @ -Acute Uncomplicated (without systemic symptoms) or Complicated (systemic symptoms)? @ -Uncomplicated Side effects of treatment? @ -No Exacerbation, Progression, or Severe Exacerbation? @ -No Poses a threat to life or bodily function? How? (Chest pain, [place], [place], pneumonia, PE, COPD, DKA, ARF, appy, cholecystitis, CVA, Diverticulitis, Homicidal, Suicidal, threat to staff... and all critical care pts) @ -No - Lab Data Lab Results 08/09/24 Range/Units 13:22 Influenza Type A (PCR) Not Detected (Not Detectd) Influenza Type B (PCR) Not Detected (Not Detectd) RSV (PCR) Not Detected (Not Detectd) SARS-CoV-2 (PCR) Not Detected (Not Detectd) Disposition Clinical Impression: Viral URI Disposition: HOME SELF-CARE Condition: Stable Instructions (If sedation given, give patient instructions): Upper Respiratory Infection (ED) Additional Instructions: Please follow up with your primary care provider. Return to the emergency department for new or worsening symptoms. Prescriptions: Benzonatate [Tessalon Perles] 100 mg PO TID PRN #15 capsule PRN Reason: Cough Is patient prescribed a controlled substance at d/c from ED?: No Referrals: None,Stated [Primary Care Provider] - 1-2 days
[2024-08-09] MEDS: BENZONATATE 100 MG CAP PO STA (14:22)
[2024-08-09] MEDS: IPRATROPIUM-ALBUTEROL 3 ML NEB INHALATION STA (14:22)
[2024-08-09 14:24] VITALS: RESP 16
[2024-08-09 14:27] VITALS: BP 112/81; PULSE 92; TEMP 98.5
== END 2024-08-09 14:27 | disposition home or self-care (01) ==
LOC: EC 13:10
DX: J06.9 Acute upper respiratory infection, unspecified (principal); Z88.1 Allergy status to other antibiotic agents; Z88.2 Allergy status to sulfonamides; Z88.5 Allergy status to narcotic agent; Z88.7 Allergy status to serum and vaccine; Z88.8 Allergy status to other drugs, medicaments and biological substances; Z87.891 Personal history of nicotine dependence
CPT/HCPCS: 71046; 87636; 99283

== ENCOUNTER → 2024-08-18 | Outpatient (CLI) | payer OTHER ==
--- NOTE | 2024-08-18 12:49 | XR ---
EXAMINATION TYPE: XR chest 2V DATE OF EXAM: 08/18/2024 COMPARISON: 08/09/2024 CLINICAL INDICATION: Female, 39 years old with history of J40 BRONCHIATIS; , TECHNIQUE: XR chest 2V views of the chest. FINDINGS: The lungs are clear and there is no pneumothorax, pleural effusion, or focal pneumonia. Heart size normal and no overt failure. Osseous structures demonstrate hypertrophic and degenerative changes of the spine. IMPRESSION: 1. No acute process. [facility], , 08/18/2024 12:47 PM
== END | disposition home or self-care (01) ==
LOC: RADXRMAIN 12:29
PROVIDERS: ATTEND Nurse Practitioner Family
DX: J40 Bronchitis, not specified as acute or chronic (principal)
CPT/HCPCS: 71046

== ENCOUNTER 2024-10-14 14:28 | Emergency (ER) | payer OTHER ==
--- NOTE | 2024-10-14 15:27 | ED ---
Back Pain HPI - General Chief Complaint: Back Pain/Injury Stated Complaint: Abd pain Time Seen by Provider: 10/14/24 15:24 Source: patient, RN notes reviewed Limitations: no limitations - History of Present Illness Initial Comments: 39-year-old female presenting for hematuria x 2 weeks with associated low back pain and dysuria. States her urine has been very dark over the past 2 weeks. Believes she passed a small kidney stone last night. Denies history of kidney stones. States even after passing the kidney stone she continues to experience some low back pain and dark urine. States she would like a test as well as there is a chance she may be . Denies vaginal bleeding or discharge. Last menstrual period was September 23. Denies blood thinners. Denies history of abdominal surgeries. - Related Data Home Medications Medication Instructions Recorded Confirmed OXcarbazepine [Trileptal] 600 mg PO BID 09/29/19 10/14/24 Albuterol Nebulized [Ventolin 2.5 mg INHALATION RT-QID PRN 05/23/21 10/14/24 Nebulized] Venlafaxine HCl [Effexor XR] 75 mg PO DAILY 05/23/21 10/14/24 Acetaminophen Tab [Tylenol] 325 mg PO Q6H PRN 10/14/24 10/14/24 Albuterol Sulfate [Ventolin HFA] 2 puff INHALATION RT-QID PRN 10/14/24 10/14/24 Dicyclomine [Bentyl] 10 mg PO QID 10/14/24 10/14/24 Fexofenadine HCl 180 mg PO Q2D 10/14/24 10/14/24 Fexofenadine HCl [Sharon Allergy] 180 mg PO DAILY 10/14/24 10/14/24 Fluticasone/Umeclidin/Vilanter 1 puff INHALATION RT-DAILY 10/14/24 10/14/24 [Trelegy Ellipta 200-62.5-25] Ibuprofen [Motrin] 600 mg PO Q6H PRN 10/14/24 10/14/24 Loratadine 10 mg PO Q2D 10/14/24 10/14/24 Lurasidone [Latuda] 20 mg PO HS 10/14/24 10/14/24 Metoprolol Succinate (ER) [Toprol 25 mg PO DAILY 10/14/24 10/14/24 Xl] Omeprazole 40 mg PO BID 10/14/24 10/14/24 Ondansetron Odt [Zofran Odt] 4 mg PO TID PRN 10/14/24 10/14/24 Promethazine HCl [Phenergan Syrup] 12.5 mg PO Q6HR PRN 10/14/24 10/14/24 Rimegepant Sulfate [Nurtec Odt] 75 mg PO DAILY PRN 10/14/24 10/14/24 traZODone HCL 100 mg PO HS 10/14/24 10/14/24 Previous Rx's Medication Instructions Recorded Famotidine [Pepcid] 20 mg PO BID #5 tablet 10/06/19 Ketorolac [Toradol] 10 mg PO Q8HR #15 tab 10/14/24 Allergies Allergy/AdvReac Type Severity Reaction Status Date / Time azithromycin Allergy Rash/Hives Verified 10/14/24 17:05 divalproex sodium Allergy "had Verified 10/14/24 17:05 [From Depakote] seizure when coming off" hydrocodone Allergy Rash/Hives Verified 10/14/24 17:05 phenytoin [From Dilantin] Allergy Unknown Verified 10/14/24 17:05 Quinolones Allergy Rash/Hives Verified 10/14/24 17:05 sulfamethoxazole Allergy Rash/Hives Verified 10/14/24 17:05 [From Bactrim] tramadol Allergy Rash/Hives Verified 10/14/24 17:05 trimethoprim [From Bactrim] Allergy Rash/Hives Verified 10/14/24 17:05 codeine AdvReac Vertigo Verified 10/14/24 17:05 diphenhydramine HCl AdvReac Rapid Verified 10/14/24 17:05 [From Benadryl] Heart Rate egg AdvReac Nausea & Verified 10/14/24 17:05 Vomiting Influenza Virus Vaccines AdvReac Nausea & Verified 10/14/24 17:05 Vomiting sulfate ion AdvReac Anaphylaxis Verified 10/14/24 17:05 Review of Systems ROS Statement: Those systems with pertinent positive or pertinent negative responses have been documented in the HPI. ROS Other: All systems not noted in ROS Statement are negative. Past Medical History Past Medical History: Asthma, Chest Pain / Angina, COPD, GERD/Reflux, Myocardial Infarction (GA), Seizure Disorder, Syncope Additional Past Medical History / Comment(s): migraines, last seizure 4 months ago GA x 2, low blood pressures, irregular heart beat, tachycardia, Last Myocardial Infarction Date:: 10/2016 History of Any Multi-Drug Resistant Organisms: None Reported Past Surgical History: Cholecystectomy, Tubal Ligation Additional Past Surgical History / Comment(s): Tilt table test, wisdom teeth extraction. Past Anesthesia/Blood Transfusion Reactions: Previous Problems w/ Anesthesia Additional Past Anesthesia/Blood Transfusion Reaction / Comment(s): "I get anxious when I wake up when my fiance is not there" Past Psychological History: ADD/ADHD, Anxiety, Bipolar, Depression, PTSD Smoking Status: Former smoker Past Alcohol Use History: None Reported Past Drug Use History: None Reported - Past Family History Father Family Medical History: Cancer Additional Family Medical History / Comment(s): Father at age 61 from lung CA Mother Family Medical History: No Reported History, Seizure Disorder Additional Family Medical History / Comment(s): Mother is alive with history of bipolar/schitzophrenia Brother(s) Additional Family Medical History / Comment(s): She has one half brother that abuses cocaine and methamphetamines. She does not have any contact with him. Tri mack has 1 sister with no major medical problems. Patient does not have any children. General Exam Limitations: no limitations General appearance: alert, in no apparent distress Head exam: Present: atraumatic, normocephalic, normal inspection ENT exam: Present: normal exam, mucous membranes moist Respiratory exam: Present: normal lung sounds bilaterally. Absent: respiratory distress, wheezes, rales, rhonchi, stridor Cardiovascular Exam: Present: regular rate, normal rhythm, normal heart sounds. Absent: systolic murmur, diastolic murmur, rubs, gallop, clicks GI/Abdominal exam: Present: soft, normal bowel sounds. Absent: distended, tenderness, guarding, rebound, rigid Back exam: Present: normal inspection. Absent: CVA tenderness (R), CVA tenderness (L), rash noted Neurological exam: Present: alert, oriented X3 Psychiatric exam: Present: normal affect, normal mood Skin exam: Present: warm, dry, intact, normal color. Absent: rash Course Vital Signs 10/14/24 10/14/24 14:39 17:31 Temperature 98.5 F 98.6 F Pulse Rate 81 94 Respiratory 20 16 Rate Blood Pressure 112/76 110/76 O2 Sat by Pulse 98 97 Oximetry Medical Decision Making - Medical Decision Making Was pt. sent in by a medical professional or institution (DEBRA Johnston, RAILROAD FIRER/FIREMAN, urgent care, hospital, or usp...) When possible be specific @ -No Did you speak to anyone other than the patient for history (EMS, parent, family, police, friend...)? What history was obtained from this source @ -No Did you review nursing and triage notes (agree or disagree)? Why? @ -I reviewed and agree with nursing and triage notes Were old charts reviewed (outside hosp., previous admission, EMS record, old EKG, old radiological studies, urgent care reports/EKG's, usp records)? Report findings @ -No old charts were reviewed Differential Diagnosis (chest pain, altered mental status, abdominal pain women, abdominal pain men, vaginal bleeding, weakness, fever, dyspnea, syncope, headache, dizziness, GI bleed, back pain, seizure, CVA, palpatations, mental health, musculoskeletal)? @ -Differential Abdominal Pain Women: Appendicitis, Cholecystitis, diverticulosis, ischemic bowel, pancreatitis, hepatitis, UTI, gastroenteritis, AAA, incarcerated hernia, bowel obstruction, constipation, inflammatory bowel, hepatitis, peptic ulcer disease, splenic infarction, perforated viscus, vulvitis, ovarian torsion, PID, kidney stone, placenta abruption, this is not meant to be an all-inclusive list EKG interpreted by me (3pts min.). @ -None X-rays interpreted by me (1pt min.). @ -None done CT interpreted by me (1pt min.). @ -CT abdomen pelvis reveals no acute process U/S interpreted by me (1pt. min.). @ -None done What testing was considered but not performed or refused? (CT, X-rays, U/S, labs)? Why? @ -None What meds were considered but not given or refused? Why? @ -None Did you discuss the management of the patient with other professionals (professionals i.e. DEBRA Johnston, RAILROAD FIRER/FIREMAN, lab, RT, psych nurse, social media project manager, die maker bench stamping, teacher, plant protection officer, senior case manager)? Give summary @ -No Was smoking cessation discussed for >3mins.? @ -No Was critical care preformed (if so, how long)? @ -No Were there social determinants of health that impacted care today? How? (Homelessness, low income, unemployed, alcoholism, drug addiction, transportation, low edu. Level, literacy, decrease access to med. care, long term, rehab)? @ -No Was there de-escalation of care discussed even if they declined (Discuss DNR or withdrawal of care, Hospice)? DNR status @ -No What co-morbidities impacted this encounter? (DM, HTN, Smoking, COPD, CAD, Cancer, CVA, ARF, Chemo, Hep., AIDS, mental health diagnosis, sleep apnea, morbid obesity)? @ -None Was patient admitted / discharged? Hospital course, mention meds given and route, prescriptions, significant lab abnormalities, going to OR and other pertinent info. @ -Discharge. This is a 39-year-old female presenting with low back pain x 2 weeks with dysuria. Believes she passed a kidney stone last night. Vital signs are within acceptable limits. Patient is afebrile with no CVA tenderness. Abdomen is soft and nontender. Patient is provided with IV fluids and analgesics. Lab work largely unremarkable. No leukocytosis. Urinalysis highly contaminated sample however not indicative of urinary tract infection. Urine negative. CT abdomen pelvis reveals no acute process. Results discussed with patient. I suspect patient passed a kidney stone last night, however there is no sign of infection or hydronephrosis on workup today. Appropriate return precautions and follow-up care discussed with patient. Case was discussed with my ED attending Dr. Jordan. Undiagnosed new problem with uncertain prognosis? @ -No Drug Therapy requiring intensive monitoring for toxicity (Heparin, Nitro, Insulin, Cardizem)? @ -No Were any procedures done? @ -No Diagnosis/symptom? @ -Low back pain Acute, or Chronic, or Acute on Chronic? @ -Acute Uncomplicated (without systemic symptoms) or Complicated (systemic symptoms)? @ -Uncomplicated Side effects of treatment? @ -No Exacerbation, Progression, or Severe Exacerbation? @ -No Poses a threat to life or bodily function? How? (Chest pain, USA, GA, pneumonia, PE, COPD, DKA, ARF, appy, cholecystitis, CVA, Diverticulitis, Homicidal, Suicidal, threat to staff... and all critical care pts) @ -No - Lab Data Result diagrams: 10/14/24 16:05 10/14/24 16:05 Lab Results 10/14/24 10/14/24 10/14/24 Range/Units 16:05 16:05 16:05 WBC 7.4 (3.8-10.6) k/uL RBC 4.15 (3.80-5.40) m/uL Hgb 13.6 (11.4-16.0) gm/dL Hct 40.3 (34.0-46.0) % MCV 97.1 (80.0-100.0) fL MCH 32.6 (25.0-35.0) pg MCHC 33.6 (31.0-37.0) g/dL RDW 12.3 (11.5-15.5) % Plt Count 248 (150-450) k/uL MPV 6.8 Neutrophils % 57 % Lymphocytes % 32 % Monocytes % 7 % Eosinophils % 2 % Basophils % 0 % Neutrophils # 4.2 (1.3-7.7) k/uL Lymphocytes # 2.4 (1.0-4.8) k/uL Monocytes # 0.6 (0-1.0) k/uL Eosinophils # 0.1 (0-0.7) k/uL Basophils # 0.0 (0-0.2) k/uL Sodium (137-145) mmol/L Potassium (3.5-5.1) mmol/L Chloride (98-107) mmol/L Carbon Dioxide (22-30) mmol/L Anion Gap mmol/L BUN (7-17) mg/dL Creatinine (0.52-1.04) mg/dL Est GFR (CKD-EPI)AfAm (>60 ml/min/1.73 sqM) Est GFR (CKD-EPI)NonAf (>60 ml/min/1.73 sqM) Glucose (74-99) mg/dL Plasma Lactic Acid Simon (0.7-2.0) mmol/L Calcium (8.4-10.2) mg/dL Total Bilirubin (0.2-1.3) mg/dL AST (14-36) U/L ALT (4-34) U/L Alkaline Phosphatase (38-126) U/L Total Protein (6.3-8.2) g/dL Albumin (3.5-5.0) g/dL Urine Color Yellow Urine Appearance Cloudy H (Clear) Urine pH 6.0 (5.0-8.0) Ur Specific Callaway 1.041 H (1.001-1.035) Urine Protein Trace H (Negative) Urine Glucose (UA) Negative (Negative) Urine Ketones Negative (Negative) Urine Blood Negative (Negative) Urine Nitrite Negative (Negative) Urine Bilirubin Negative (Negative) Urine Urobilinogen 2.0 (<2.0) mg/dL Ur Leukocyte Esterase Negative (Negative) Urine RBC 6 H (0-5) /hpf Urine WBC 1 (0-5) /hpf Ur Squamous Epith Cells 17 H (0-4) /hpf Urine Mucus Few H (None) /hpf Urine HCG, Qual Not Detected (Not Detectd) 10/14/24 10/14/24 Range/Units 16:05 16:05 WBC (3.8-10.6) k/uL RBC (3.80-5.40) m/uL Hgb (11.4-16.0) gm/dL Hct (34.0-46.0) % MCV (80.0-100.0) fL MCH (25.0-35.0) pg MCHC (31.0-37.0) g/dL RDW (11.5-15.5) % Plt Count (150-450) k/uL MPV Neutrophils % % Lymphocytes % % Monocytes % % Eosinophils % % Basophils % % Neutrophils # (1.3-7.7) k/uL Lymphocytes # (1.0-4.8) k/uL Monocytes # (0-1.0) k/uL Eosinophils # (0-0.7) k/uL Basophils # (0-0.2) k/uL Sodium 136 L (137-145) mmol/L Potassium 4.2 (3.5-5.1) mmol/L Chloride 108 H (98-107) mmol/L Carbon Dioxide 21 L (22-30) mmol/L Anion Gap 7 mmol/L BUN 19 H (7-17) mg/dL Creatinine 0.72 (0.52-1.04) mg/dL Est GFR (CKD-EPI)AfAm >90 (>60 ml/min/1.73 sqM) Est GFR (CKD-EPI)NonAf >90 (>60 ml/min/1.73 sqM) Glucose 86 (74-99) mg/dL Plasma Lactic Acid Simon 0.9 (0.7-2.0) mmol/L Calcium 9.4 (8.4-10.2) mg/dL Total Bilirubin 0.4 (0.2-1.3) mg/dL AST 17 (14-36) U/L ALT 15 (4-34) U/L Alkaline Phosphatase 73 (38-126) U/L Total Protein 7.0 (6.3-8.2) g/dL Albumin 3.8 (3.5-5.0) g/dL Urine Color Urine Appearance (Clear) Urine pH (5.0-8.0) Ur Specific Callaway (1.001-1.035) Urine Protein (Negative) Urine Glucose (UA) (Negative) Urine Ketones (Negative) Urine Blood (Negative) Urine Nitrite (Negative) Urine Bilirubin (Negative) Urine Urobilinogen (<2.0) mg/dL Ur Leukocyte Esterase (Negative) Urine RBC (0-5) /hpf Urine WBC (0-5) /hpf Ur Squamous Epith Cells (0-4) /hpf Urine Mucus (None) /hpf Urine HCG, Qual (Not Detectd) Disposition Clinical Impression: Low back pain Disposition: HOME SELF-CARE Condition: Stable Instructions (If sedation given, give patient instructions): Acute Low Back Pain (ED) Additional Instructions: Take Toradol as needed for pain. Please return to the Emergency Department if symptoms worsen or any other concerns. Prescriptions: Ketorolac [Toradol] 10 mg PO Q8HR #15 tab Is patient prescribed a controlled substance at d/c from ED?: No Referrals: Debbie Stone DO [REFERRING] - 1-2 days Time of Disposition: 17:22
[2024-10-14] MEDS: ACETAMINOPHEN TAB 325 MG TAB PO STA (15:50)
[2024-10-14] MEDS: SODIUM CHLORIDE 0.9% 1,000 ML IV STA (15:51)
[2024-10-14 16:16] LABS: Basophils % (A) 0 %; Eosinophils # (A) 0.1 k/uL (0-0.7); Eosinophils % (A) 2 %; HCT 40.3 % (34.0-46.0); HGB 13.6 gm/dL (11.4-16.0); Lymphocytes # (A) 2.4 k/uL (1.0-4.8); Lymphocytes % (A) 32 %; MCH 32.6 pg (25.0-35.0); MCHC 33.6 g/dL (31.0-37.0); MCV 97.1 fL (80.0-100.0); Mean Platelet Volume 6.8; Monocytes # (A) 0.6 k/uL (0-1.0); Monocytes % (A) 7 %; Neutrophils # (A) 4.2 k/uL (1.3-7.7); Neutrophils % (A) 57 %; Platelet Count 248 k/uL (150-450); RBC 4.15 m/uL (3.80-5.40); RDW 12.3 % (11.5-15.5); WBC 7.4 k/uL (3.8-10.6)
[2024-10-14 16:21] LABS: Appearance,Urine Cloudy (Clear); Bilirubin,Urine Negative (Negative); Blood,Urine Negative (Negative); Color,Urine Yellow; Glucose,Urine (UA) Negative (Negative); Ketones,Urine Negative (Negative); Leukocyte Esterase,Urine Negative (Negative); Mucus,Urine Few /hpf; Nitrite,Urine Negative (Negative); Protein,Urine Trace (Negative); RBC,Urine 6 /hpf (0-5); Specific Gravity,Urine 1.041 (1.001-1.035); Squamous Epithelial Cell,Urine 17 /hpf (0-4); WBC,Urine 1 /hpf (0-5)
[2024-10-14 16:27] LABS: ALT 15 U/L (4-34); AST 17 U/L (14-36); African American GFR (CKD) >90 (>60 ml/min/1.73 sqM); Albumin 3.8 g/dL (3.5-5.0); Alkaline Phosphatase 73 U/L (38-126); Anion Gap 7 mmol/L; Blood Urea Nitrogen 19 mg/dL (7-17); Calcium 9.4 mg/dL (8.4-10.2); Carbon Dioxide 21 mmol/L (22-30); Chloride 108 mmol/L (98-107); Glucose 86 mg/dL (74-99); Non-African American GFR(CKD) >90 (>60 ml/min/1.73 sqM); Potassium 4.2 mmol/L (3.5-5.1); Sodium 136 mmol/L (137-145); Total Bilirubin 0.4 mg/dL (0.2-1.3)
--- NOTE | 2024-10-14 16:28 | CT ---
EXAMINATION TYPE: CT abdomen pelvis wo con DATE OF EXAM: 10/14/2024 4:23 PM COMPARISON: 10/31/2023 CLINICAL INDICATION: Female, 39 years old with history of flank pain, kidney stone suspected; bilater al flank pain TECHNIQUE: Axial CT abdomen pelvis wo con;Sagittal and coronal reformats were created on a separate workstation. Contrast used: mL of , (none if empty) Oral contrast used: without Oral Contrast (none if empty) CT DLP: 555 mGycm, Automated exposure control for dose reduction was used. FINDINGS: LOWER CHEST: Unremarkable ABDOMEN LIVER: Unremarkable GALLBLADDER AND BILE DUCTS: The gallbladder is surgically absent. PANCREAS: Unremarkable. SPLEEN: Simple appearing cysts in the spleen. ADRENAL GLANDS: Unremarkable. KIDNEYS AND URETERS: No evidence of hydronephrosis or renal calculus. The ureters are unremarkable. PELVIS BLADDER: No evidence for wall thickening or mass given limitations of exam. REPRODUCTIVE: Uterus is retroflexed sitting just anterior to the sacrum. There are 2 surgical clips i n left pelvis possibly tubal ligation clips. One would have been migrated if there are bilateral tuba l ligation clips. ABDOMEN & PELVIS STOMACH AND BOWEL: No evidence of bowel obstruction. Moderate amount stool in the cecum and ascending colon. Scattered colonic diverticula. The appendix is not definitively visualized. Redundant sigmoid colon. PERITONEUM/RETROPERITONEUM: No evidence of pneumoperitoneum or free fluid. VASCULATURE: No evidence of aortic aneurysm. MUSCULOSKELETAL: No acute osseous abnormalities LYMPH NODES: No gross evidence for lymphadenopathy. SOFT TISSUE/ABDOMINAL WALL: Unremarkable IMPRESSION: 1. No evidence for acute abdominal process. No evidence for obstructive uropathy or renal calculus. 2. Few scattered colonic diverticula. 3. Retroflexed uterus. [facility], , 10/14/2024 4:26 PM
[2024-10-14] MEDS: KETOROLAC 15 MG/ML 1 ML VIAL IVP STA (17:00)
[2024-10-14 17:40] VITALS: BP 110/76; PULSE 94; RESP 16; TEMP 98.6
== END 2024-10-14 17:35 | disposition home or self-care (01) ==
LOC: EC 14:28
DX: M54.50 Low back pain, unspecified (principal); Z87.891 Personal history of nicotine dependence; Z88.1 Allergy status to other antibiotic agents; Z88.2 Allergy status to sulfonamides; Z88.5 Allergy status to narcotic agent; Z88.7 Allergy status to serum and vaccine; Z91.012 Allergy to eggs; Z88.8 Allergy status to other drugs, medicaments and biological substances
CPT/HCPCS: 36415; 80053; 83605; 85025; 81001; 81025; 74176; 99284; 96374; 96361; J1885

== ENCOUNTER 2024-12-11 12:20 | Emergency (ER) | payer OTHER ==
[2024-12-11 12:26] VITALS: RESP 18
--- NOTE | 2024-12-11 14:07 | ED ---
Lower Extremity Injury HPI - General Chief Complaint: Extremity Injury, Lower Stated Complaint: L foot injury Time Seen by Provider: 12/11/24 13:36 Source: patient, RN notes reviewed Mode of arrival: ambulatory Limitations: no limitations - History of Present Illness Initial Comments: 39-year female presenting to the emergency department for complaint of left foot pain. She states that 3 weeks ago she hit the outside of her left foot on a whole chest and is concerned that there has been a abnormality forming on the lateral side of her foot. Patient is able to ambulate with no difficulties. Denies previous surgeries of the left foot. No other acute complaints at this time. - Related Data Home Medications Medication Instructions Recorded Confirmed OXcarbazepine [Trileptal] 600 mg PO BID 09/29/19 10/14/24 Albuterol Nebulized [Ventolin 2.5 mg INHALATION RT-QID PRN 05/23/21 10/14/24 Nebulized] Venlafaxine HCl [Effexor XR] 75 mg PO DAILY 05/23/21 10/14/24 Acetaminophen Tab [Tylenol] 325 mg PO Q6H PRN 10/14/24 10/14/24 Albuterol Sulfate [Ventolin HFA] 2 puff INHALATION RT-QID PRN 10/14/24 10/14/24 Dicyclomine [Bentyl] 10 mg PO QID 10/14/24 10/14/24 Fexofenadine HCl 180 mg PO Q2D 10/14/24 10/14/24 Fexofenadine HCl [Sharon Allergy] 180 mg PO DAILY 10/14/24 10/14/24 Fluticasone/Umeclidin/Vilanter 1 puff INHALATION RT-DAILY 10/14/24 10/14/24 [Trelegy Ellipta 200-62.5-25] Ibuprofen [Motrin] 600 mg PO Q6H PRN 10/14/24 10/14/24 Loratadine 10 mg PO Q2D 10/14/24 10/14/24 Lurasidone [Latuda] 20 mg PO HS 10/14/24 10/14/24 Metoprolol Succinate (ER) [Toprol 25 mg PO DAILY 10/14/24 10/14/24 Xl] Omeprazole 40 mg PO BID 10/14/24 10/14/24 Ondansetron Odt [Zofran Odt] 4 mg PO TID PRN 10/14/24 10/14/24 Promethazine HCl [Phenergan Syrup] 12.5 mg PO Q6HR PRN 10/14/24 10/14/24 Rimegepant Sulfate [Nurtec Odt] 75 mg PO DAILY PRN 10/14/24 10/14/24 traZODone HCL 100 mg PO HS 10/14/24 10/14/24 Previous Rx's Medication Instructions Recorded Famotidine [Pepcid] 20 mg PO BID #5 tablet 10/06/19 Ketorolac [Toradol] 10 mg PO Q8HR #15 tab 10/14/24 Allergies Allergy/AdvReac Type Severity Reaction Status Date / Time azithromycin Allergy Rash/Hives Verified 12/11/24 12:27 divalproex sodium Allergy "had Verified 12/11/24 12:27 [From Depakote] seizure when coming off" hydrocodone Allergy Rash/Hives Verified 12/11/24 12:27 phenytoin [From Dilantin] Allergy Unknown Verified 12/11/24 12:27 Quinolones Allergy Rash/Hives Verified 12/11/24 12:27 sulfamethoxazole Allergy Rash/Hives Verified 12/11/24 12:27 [From Bactrim] tramadol Allergy Rash/Hives Verified 12/11/24 12:27 trimethoprim [From Bactrim] Allergy Rash/Hives Verified 12/11/24 12:27 codeine AdvReac Vertigo Verified 12/11/24 12:27 diphenhydramine HCl AdvReac Rapid Verified 12/11/24 12:27 [From Benadryl] Heart Rate egg AdvReac Nausea & Verified 12/11/24 12:27 Vomiting Influenza Virus Vaccines AdvReac Nausea & Verified 12/11/24 12:27 Vomiting sulfate ion AdvReac Anaphylaxis Verified 12/11/24 12:27 Review of Systems ROS Statement: Those systems with pertinent positive or pertinent negative responses have been documented in the HPI. ROS Other: All systems not noted in ROS Statement are negative. Past Medical History Past Medical History: Asthma, Chest Pain / Angina, COPD, GERD/Reflux, Myocardial Infarction (NC), Seizure Disorder, Syncope Additional Past Medical History / Comment(s): migraines, last seizure 4 months ago NC x 2, low blood pressures, irregular heart beat, tachycardia, Last Myocardial Infarction Date:: 10/2016 History of Any Multi-Drug Resistant Organisms: None Reported Past Surgical History: Cholecystectomy, Tubal Ligation Additional Past Surgical History / Comment(s): Tilt table test, wisdom teeth extraction. Past Anesthesia/Blood Transfusion Reactions: Previous Problems w/ Anesthesia Additional Past Anesthesia/Blood Transfusion Reaction / Comment(s): "I get anxious when I wake up when my fiance is not there" Past Psychological History: ADD/ADHD, Anxiety, Bipolar, Depression, PTSD Smoking Status: Former smoker Past Alcohol Use History: None Reported Past Drug Use History: None Reported - Past Family History Father Family Medical History: Cancer Additional Family Medical History / Comment(s): Father at age 61 from lung CA Mother Family Medical History: No Reported History, Seizure Disorder Additional Family Medical History / Comment(s): Mother is alive with history of bipolar/schitzophrenia Brother(s) Additional Family Medical History / Comment(s): She has one half brother that abuses cocaine and methamphetamines. She does not have any contact with him. Patient has 1 sister with no major medical problems. Patient does not have any children. General Exam Limitations: no limitations General appearance: alert, in no apparent distress Neck exam: Present: normal inspection. Absent: tenderness, meningismus, lymphadenopathy Respiratory exam: Present: normal lung sounds bilaterally. Absent: respiratory distress, wheezes, rales, rhonchi, stridor Cardiovascular Exam: Present: regular rate, normal rhythm, normal heart sounds. Absent: systolic murmur, diastolic murmur, rubs, gallop, clicks GI/Abdominal exam: Present: soft, normal bowel sounds. Absent: distended, tenderness, guarding, rebound, rigid Left Foot/Toe exam: Present: normal inspection, tenderness. Absent: swelling, deformity, dislocation, erythema Neurovascular tendon exam: Absent: no vascular compromise Gait: observed and normal Back exam: Present: normal inspection Course Vital Signs 12/11/24 12:25 Temperature 98 F Pulse Rate 96 Respiratory 18 Rate Blood Pressure 127/86 O2 Sat by Pulse 100 Oximetry Medical Decision Making - Medical Decision Making Was pt. sent in by a medical professional or institution (, PA, TYPE CASTER, urgent care, hospital, or skilled nursing...) When possible be specific @ -No Did you speak to anyone other than the patient for history (EMS, parent, family, police, friend...)? What history was obtained from this source @ -No Did you review nursing and triage notes (agree or disagree)? Why? @ -I reviewed and agree with nursing and triage notes Were old charts reviewed (outside hosp., previous admission, EMS record, old EKG, old radiological studies, urgent care reports/EKG's, skilled nursing records)? Report findings @ -No old charts were reviewed Differential Diagnosis (chest pain, altered mental status, abdominal pain women, abdominal pain men, vaginal bleeding, weakness, fever, dyspnea, syncope, headache, dizziness, GI bleed, back pain, seizure, CVA, palpatations, mental health, musculoskeletal)? @ -Differential Musculoskeletal Muscular strain, contusion, ligament sprain, fracture, arthritis, septic arthritis, bursitis, cellulitis, muscle spasm, nerve compression, DVT, arterial occlusion, herpes zoster, electrolyte abnormality, tumor.... This is not meant t o be in all inclusive list EKG interpreted by me (3pts min.). @ -None X-rays interpreted by me (1pt min.). @ -X-ray of the left foot no acute osseous abnormality CT interpreted by me (1pt min.). @ -None done U/S interpreted by me (1pt. min.). @ -None done What testing was considered but not performed or refused? (CT, X-rays, U/S, labs)? Why? @ -None What meds were considered but not given or refused? Why? @ -None Did you discuss the management of the patient with other professionals (professionals i.e. , PA, TYPE CASTER, lab, RT, psych nurse, social worker aide, rag sorter, teacher, disbursing officer, case hardener)? Give summary @ -No Was smoking cessation discussed for >3mins.? @ -No Was critical care preformed (if so, how long)? @ -No Were there social determinants of health that impacted care today? How? (Homelessness, low income, unemployed, alcoholism, drug addiction, transportation, low edu. Level, literacy, decrease access to med. care, fpc, rehab)? @ -No Was there de-escalation of care discussed even if they declined (Discuss DNR or withdrawal of care, Hospice)? DNR status @ -No What co-morbidities impacted this encounter? (DM, HTN, Smoking, COPD, CAD, Cancer, CVA, ARF, Chemo, Hep., AIDS, mental health diagnosis, sleep apnea, morbid obesity)? @ -None Was patient admitted / discharged? Hospital course, mention meds given and route, prescriptions, significant lab abnormalities, going to OR and other pertinent info. @ -Discharge. 39-year-old presenting with left lateral foot pain. There is no deformity on physical exam, no neurovascular deficits. Patient was offered pain medication however was declined. She is requesting food while in the emergency department and is overall well-appearing. X-ray no acute process. Supportive treatment discussed at bedside. Case discussed with Dr. Corona Undiagnosed new problem with uncertain prognosis? @ -No Drug Therapy requiring intensive monitoring for toxicity (Heparin, Nitro, Insulin, Cardizem)? @ -No Were any procedures done? @ -No Diagnosis/symptom? @ -Lateral foot pain Acute, or Chronic, or Acute on Chronic? @ -Acute Uncomplicated (without systemic symptoms) or Complicated (systemic symptoms)? @ -Uncomplicated Side effects of treatment? @ -No Exacerbation, Progression, or Severe Exacerbation? @ -No Poses a threat to life or bodily function? How? (Chest pain, USA, NC, pneumonia, PE, COPD, DKA, ARF, appy, cholecystitis, CVA, Diverticulitis, Homicidal, Suicidal, threat to staff... and all critical care pts) @ -No Disposition Clinical Impression: Left foot pain Disposition: HOME SELF-CARE Condition: Good Instructions (If sedation given, give patient instructions): Foot Sprain (ED) Additional Instructions: Please return to the Emergency Department if symptoms worsen or any other concerns. Is patient prescribed a controlled substance at d/c from ED?: No Referrals: Leonor Kimble MD [Primary Care Provider] - 1-2 days Time of Disposition: 14:40
--- NOTE | 2024-12-11 14:23 | XR ---
EXAMINATION TYPE: XR foot complete LT DATE OF EXAM: 12/11/2024 2:20 PM COMPARISON: None. CLINICAL INDICATION: Female, 39 years old with history of injury, bump, pain, TECHNIQUE: XR foot complete LT, views submitted for evaluation. FINDINGS: There is no evidence for fracture or dislocation. The joint spaces appear within normal limits. The overlying soft tissue appears unremarkable. Ankle mortise is intact. Soft tissues are within normal l imits. IMPRESSION: 1. No evidence for acute fracture. [facility], , 12/11/2024 2:21 PM
[2024-12-11 15:16] VITALS: BP 115/82; PULSE 78; TEMP 98.1
== END 2024-12-11 15:16 | disposition home or self-care (01) ==
LOC: EC 12:20
DX: M79.672 Pain in left foot (principal); Z88.1 Allergy status to other antibiotic agents; Z88.2 Allergy status to sulfonamides; Z88.5 Allergy status to narcotic agent; Z88.7 Allergy status to serum and vaccine; Z88.8 Allergy status to other drugs, medicaments and biological substances; Z87.891 Personal history of nicotine dependence; Z91.012 Allergy to eggs; W22.8XXA Striking against or struck by other objects, initial encounter
CPT/HCPCS: 99283